=== PATIENT | female | born 1955 | race Caucasian/White ===

== ENCOUNTER → 2019-11-25 10:56 | Outpatient (BNVA) | payer MEDICARE, MEDICAID, SELFPAY | PROVIDERS: Family Provider Nurse Practitioner Family; PCP Nurse Practitioner Family; Referring Provider Nurse Practitioner Family; Visit Provider Nurse Practitioner | DX: G40.909 Epilepsy, unspecified, not intractable, without status epilepticus (principal) | CPT/HCPCS: 99204 ==

== ENCOUNTER → 2019-11-30 12:46 | Outpatient (BNVA) | payer MEDICARE, MEDICAID, SELFPAY | PROVIDERS: Family Provider Nurse Practitioner Family; PCP Nurse Practitioner Family; Referring Provider Nurse Practitioner; Visit Provider Specialist | DX: G40.309 Generalized idiopathic epilepsy and epileptic syndromes, not intractable, without status epilepticus (principal); G93.49 Other encephalopathy | CPT/HCPCS: 95816 ==

== ENCOUNTER 2020-01-18 11:25 | Outpatient (CLI) | payer MEDICARE, MEDICAID, SELFPAY ==
[2020-01-18 12:18] LABS: Blood Urea Nitrogen 13 mg/dL (8-23); Glomerular Filtration Rate 123.8 mL/min (90-130)
== END 2020-01-18 11:26 | disposition home or self-care (01) ==
LOC: RADSHAW 11:26
PROVIDERS: PCP Nurse Practitioner Family; Visit Provider Nurse Practitioner
DX: G40.909 Epilepsy, unspecified, not intractable, without status epilepticus (principal); Z79.899 Other long term (current) drug therapy
CPT/HCPCS: 82565; 84520

== ENCOUNTER 2020-05-09 10:44 | Outpatient (CLI) | payer MEDICARE, MEDICAID, SELFPAY ==
--- NOTE | 2020-05-09 11:28 | XR_ITS ---
WS: [id number] XR ankle LT min 3V* [id number] REASON FOR EXAM: PAIN BILATERAL ANKLE FINDINGS: Left ankle mortise is intact. No fracture is identified. Ossification contiguous with the distal left tibia and within the tibial fibular interval above the a nkle mortise. This is indicative of old injury. XR/XR ankle LT min 3V* [id number] IMPRESSION: Old injury. No acute abnormality.
--- NOTE | 2020-05-09 11:28 | XR_ITS ---
WS: [id number] XR elbow RT min 3V* [id number] REASON FOR EXAM: BILATERAL ELBOW PAIN/RA/FALL FINDINGS: Plate and screw fixation of multi part supracondylar right elbow fracture 06/09/2009. No interval imag ing since that time. Surgical appliances and bone appear intact without acute fracture identifiable. XR/XR elbow RT min 3V* [id number] IMPRESSION: Previous right elbow fracture with internal fixation, no acute abnormality.
--- NOTE | 2020-05-09 11:28 | XR_ITS ---
WS: [id number] Portable AP upright chest, 05/09/2020 Clinical Data: FALL/RA/BACK PAIN Comparison: Portable chest, 10/05/2017. Findings: No nodules, masses or effusions are seen. The heart is at the upper limits of normal. The a ortic arch and descending aorta show tortuosity. No pneumonia or pneumothorax is present. The nerve s timulator device and generator remain unchanged. The calcific bursitis in this right subcoracoid rod on remains unchanged. The patient has plates in the distal right humerus from a fracture repair. Ther e is a dextroscoliosis of the lower thoracic spine. XR/XR chest 2V* [id number] Impression: Atherosclerosis.
--- NOTE | 2020-05-09 11:28 | XR_ITS ---
WS: [id number] XR elbow LT min 3V* [id number] REASON FOR EXAM: BILATERAL ELBOW PAIN/RA/FALL FINDINGS: There is narrowing of the left ulnar humeral joint with mild osteophytic spurring. Left humerus, radius, and ulna are intact. No soft tissue abnormality. XR/XR elbow LT min 3V* [id number] IMPRESSION: Degenerative change without acute abnormality.
--- NOTE | 2020-05-09 11:28 | XR_ITS ---
WS: [id number] XR ankle RT min 3V* [id number] REASON FOR EXAM: PAIN CAROLEE ANKLES FINDINGS: The right ankle mortise is intact. No fracture is identified No soft tissue abnormality identified. XR/XR ankle RT min 3V* [id number] IMPRESSION: No acute abnormality.
== END 2020-05-09 10:45 | disposition home or self-care (01) ==
PROVIDERS: PCP Nurse Practitioner Family; Visit Provider Nurse Practitioner Family
DX: M25.522 Pain in left elbow (principal); M25.521 Pain in right elbow; M25.572 Pain in left ankle and joints of left foot; M25.571 Pain in right ankle and joints of right foot; M19.022 Primary osteoarthritis, left elbow; M54.9 Dorsalgia, unspecified; I70.0 Atherosclerosis of aorta; W19.XXXA Unspecified fall, initial encounter
CPT/HCPCS: 71046; 73080; 73610

== ENCOUNTER 2021-10-15 12:55 | Inpatient (IN) | payer MEDICARE, MEDICAID, SELFPAY ==
[2021-10-15] VITALS (10 sets, daily range): BP systolic 85–156; BP diastolic 52–89; PULSE 68–87; RESP 13–19; TEMP 36.6–36.8; O2SAT 93–100; BMI 16.5
--- NOTE | 2021-10-15 13:01 | ECG_ITS ---
[facility] Test Date: 2021-10-15 Pat Name: Dasia Brian Department: Room: Gender: Female Broom Worker: : 1955 Requested By: Ruby Arroyo Order Number: [id number] Cristian MD: Robles Culver M.D. Measurements Intervals [place] Rate: 67 P: 58 WI: 183 QRS: 83 QRSD: 78 T: 74 QT: 400 QTc: 425 Interpretive Statements SINUS RHYTHM No previous ECG available for comparison Electronically Signed On 10-16-2021 8:05:38 CDT by Robles Culver M.D. [id number]
--- NOTE | 2021-10-15 13:01 | CTR_ITS ---
PROCEDURE INFORMATION: Exam: CT Head Without Contrast Exam date and time: 10/15/2021 2:19 PM Age: 65 years old Clinical indication: Altered mental status/memory loss; Prior surgery; Surgery type: Brain; Additional info: AMS TECHNIQUE: Imaging protocol: Computed tomography of the head without contrast. Radiation optimization: All CT scans at this facility use at least one of these dose optimization techniques: automated exposure control; mA and/or kV adjustment per patient size (includes targeted exams where dose is matched to clinical indication); or iterative reconstruction. COMPARISON: No relevant prior studies available. RADIATION DOSE METRICS: Total DLP (mGy-cm): 886.3 FINDINGS: Brain: There is significant postoperative changes present with a large surgical defect involving the anterior portion of the left temporal lobe, the left frontal lobe, and the left anterior parietal lobe. No hemorrhage. Unremarkable white matter. No mass effect. There is enlargement of the cisterna magna . Cerebral ventricles: The left cerebral ventricles shows asymmetric ventriculomegaly. The posterior horn of the left lateral ventricle is anteriorly displaced and enlarged due to postoperative changes . Paranasal sinuses: Visualized sinuses are unremarkable. No fluid levels. Mastoid air cells: Visualized mastoid air cells are well aerated. Bones/joints: There are large craniotomy defects involving the left parietal bone and left temporal bone. No acute fracture. Soft tissues: Unremarkable. CT/CT head wo con* [id number] IMPRESSION: 1. Large craniotomy defects in the left parietal bone and temporal bone. 2. Postoperative brain defects left anterior temporal, anterior parietal, and frontal lobe. 3. Prominent cisterna magna 4. Asymmetric ventriculomegaly of the left ventricle.
--- NOTE | 2021-10-15 13:01 | XRR_ITS ---
PROCEDURE INFORMATION: Exam: XR Chest Exam date and time: 10/15/2021 1:27 PM Age: 65 years old Clinical indication: Other: AMS TECHNIQUE: Imaging protocol: XR of the chest. Views: 1 view. COMPARISON: CR XR chest 2V* [id number] 05/09/2020 11:47 AM FINDINGS: Tubes, catheters and devices: There is an electronic device in the left anterior chest is lead extends into the cervical spine Lungs: Unremarkable. No consolidation. Pleural spaces: Unremarkable. No pleural effusion. No pneumothorax. Heart/Mediastinum: Unremarkable. No cardiomegaly. Bones/joints: Unremarkable. XR/XR chest 1V portable [id number] IMPRESSION: 1. No acute findings. 2. Electronic device left chest extending to the cervical spine.
--- NOTE | 2021-10-15 13:03 | W.ED.GENADLT ---
HPI - General Adult General: Chief complaint: Altered Mental Status Stated complaint: LETHARGY Time Seen by Provider: 10/15/21 12:56 Source: EMS Mode of arrival: EMS Limitations: altered mental status History of Present Illness: 65-year-old female has a history of epilepsy along with arthritis and encephalopathy. She lives at [place] she typically is able to talk and eat on her own I states she has had increasing altered male status throughout the day patient currently is somnolent not able to get aroused or answer any questions currently EMS states that she would wake up at times with and they never could get her to answer any questions either she has had no vomiting diarrhea or fevers. PFS ED PFSH: Medical History Epilepsy Family History Other No pertinent family history Social History Smoking and tobacco status: never smoked History of recent travel: No Physical Exam Const: COMMON NORMALS: negative for patient oriented x3 and negative for alert EXAM LIMITATIONS: altered mental status GENERAL APPEARANCE: ill appearing HENMT: COMMON NORMALS: normocephalic and atraumatic HEAD & SCALP: normocephalic and atraumatic Eye: COMMON NORMALS: Equal, round and reactive pupils present and EOMs intact bilaterally PUPIL: Yes Equal, round and reactive pupils present Neck/C-Spine: COMMON NORMALS: full ROM and supple Chest: COMMONS NORMALS: normal inspection of the chest and normal palpation of entire chest wall Resp: COMMON NORMALS: normal respiratory effort, No retractions, No use of accessory muscles and clear to auscultation bilaterally AUSCULTATION: clear to auscultation bilaterally Cardio: COMMON NORMALS: regular rate, regular rhythm and No murmurs present (Cardio) RATE: regular rate RHYTHM: regular rhythm GI: COMMON NORMALS: Normal to inspection, nondistended, normoactive bowel sounds present, Soft to palpation, non-tender and no masses PALPATION: Yes Soft to palpation Extremity: COMMON NORMALS: normal to inspection and full ROM Neuro: COMMON NORMALS: negative for patient oriented x3 and negative for moves all extremities SENSORIUM/ORIENTATION: No alert Psych: COMMON NORMALS: negative for mental status grossly normal, negative for Normal thought process present and negative for cooperative THOUGHT PROCESS: abnormal Skin: COMMON NORMALS: no rashes or lesions noted and no wounds GENERAL SKIN EXAM: no rashes or lesions noted Course Vital Signs: Vital signs: Vital Signs Temperature 98.1 F 10/15/21 13:15 Pulse Rate 68 10/15/21 13:15 Respiratory Rate 16 10/15/21 13:15 Blood Pressure 156/84 10/15/21 13:15 Pulse Oximetry 100 10/15/21 13:15 MDM - General Adult Medical Decision Making Patient presents here with altered mental status she has extensive history of epilepsy and decreased functioning this could be from her urinary tract infection her phenytoin levels mildly elevated blood work and CT scan otherwise normal she has no signs of any seizures here spoke to hospitalist will admit at this time. Lab Data : 10/15/21 13:38 10/15/21 13:38 Radiology Impressions Chest X-Ray 10/15/21 13:01 IMPRESSION: 1. No acute findings. 2. Electronic device left chest extending to the cervical spine. Head CT 10/15/21 13:01 IMPRESSION: 1. Large craniotomy defects in the left parietal bone and temporal bone. 2. Postoperative brain defects left anterior temporal, anterior parietal, and frontal lobe. 3. Prominent cisterna magna 4. Asymmetric ventriculomegaly of the left ventricle. Laboratory Results WBC 7.0 10^3/uL (4.0-10.0) 10/15/21 13:38 RBC 4.60 10^6/uL (4.1-5.3) 10/15/21 13:38 Hgb 14.2 g/dL (11.5-15.3) 10/15/21 13:38 Hct 45.8 % (37.0-47.0) 10/15/21 13:38 MCV 99.6 fl (81-99) H 10/15/21 13:38 MCH 30.9 pg (28.0-34.0) 10/15/21 13:38 MCHC 31.0 g/dL (30.0-36.0) 10/15/21 13:38 RDW 13.1 % (12.1-15.1) 10/15/21 13:38 Plt Count 263 10^3/cmm (130-400) 10/15/21 13:38 MPV 9.7 fL (7.4-10.4) 10/15/21 13:38 Neut % (Auto) 58.9 % 10/15/21 13:38 Lymph % (Auto) 24.2 % 10/15/21 13:38 [place] % (Auto) 11.4 % 10/15/21 13:38 Eos % (Auto) 4.6 % 10/15/21 13:38 Baso % (Auto) 0.6 % 10/15/21 13:38 Neut # (Auto) 4.14 10^3/uL (1.8-7.7) 10/15/21 13:38 Lymph # (Auto) 1.7 10^3/uL (0.8-4.8) 10/15/21 13:38 [place] # (Auto) 0.8 10^3/uL (0.2-0.9) 10/15/21 13:38 Eos # (Auto) 0.3 10^3/uL (0.0-0.8) 10/15/21 13:38 Baso # (Auto) 0.0 10^3/uL (0.0-0.1) 10/15/21 13:38 Nucleated RBC % (auto) 0 % 10/15/21 13:38 Nucleated RBCs # 0.0 /100WBC 10/15/21 13:38 PT 14.30 SECONDS (12.1-14.9) 10/15/21 13:38 INR 1.08 (0.8-1.2) 10/15/21 13:38 Specimen Type Arterial 10/15/21 12:20 Sample Site Brachial, right 10/15/21 12:20 ABG pH 7.35 (7.35-7.45) 10/15/21 12:20 ABG pCO2 47.5 mmHg (35-45) H 10/15/21 12:20 ABG pO2 66.3 mmHg (80.0-100.0) L 10/15/21 12:20 ABG HCO3 26.4 mmol/L (22-26) H 10/15/21 12:20 ABG Base Excess 0.2 mmol/L (-2.0-2.0) 10/15/21 12:20 Gustavo Test Pos 10/15/21 12:20 Hematocrit 44.6 % (37-47) 10/15/21 12:20 Hgb O2 Saturation 91.4 % (95-100) L 10/15/21 12:20 Carboxyhemoglobin 0.9 %THgb (0.4-20.1) 10/15/21 12:20 Methemoglobin 0.9 % (0.4-1.5) 10/15/21 12:20 Total Hemoglobin 14.5 g/dL (12-16) 10/15/21 12:20 O2 Delivery Device Room air 10/15/21 12:20 FiO2 21.0 % 10/15/21 12:20 Precision Aircraft Structure Assembler ID Cak 10/15/21 12:20 Sodium 135 mmol/L (136-145) L 10/15/21 13:38 Potassium 5.0 mmol/L (3.5-5.1) 10/15/21 13:38 Chloride 100 mmol/L (98-107) 10/15/21 13:38 Carbon Dioxide 23 mmol/L (22-29) 10/15/21 13:38 Anion Gap 17.0 (5-19) 10/15/21 13:38 BUN 25 mg/dL (8-23) H 10/15/21 13:38 Creatinine 0.6 mg/dL (0.5-0.9) 10/15/21 13:38 GFR Calculation 100.0 mL/min (90-130) 10/15/21 13:38 Glucose 86 mg/dL (65-115) 10/15/21 13:38 Calculated Osmolality 284 mOsm/kg (285-295) L 10/15/21 13:38 Lactate 1.1 mmol/L (0.5-2.2) 10/15/21 13:38 Calcium 8.7 mg/dL (8.5-10.5) 10/15/21 13:38 Magnesium 2.4 mg/dL (1.7-2.3) H 10/15/21 13:38 Total Bilirubin 0.2 mg/dL (0.15-1.2) 10/15/21 13:38 AST 40 U/L (0-32) H 10/15/21 13:38 ALT 35 U/L (0-33) H 10/15/21 13:38 Alkaline Phosphatase 134 IU/L (35-105) H 10/15/21 13:38 Troponin T Baseline 16 ng/L (0-10) H 10/15/21 13:38 Total Protein 7.6 g/dL (6.6-8.7) 10/15/21 13:38 Albumin 3.6 g/dL (3.5-5.2) 10/15/21 13:38 Globulin 4.0 g/dL (1.3-4.6) 10/15/21 13:38 TSH 1.08 uIU/mL (0.27-4.20) 10/15/21 13:38 Urine Color Yellow (Yellow) 10/15/21 13:18 Urine Appearance Hazy (CLEAR) A 10/15/21 13:18 Urine pH 5 (5-7) 10/15/21 13:18 Ur Specific [place] 1.015 (1.005-1.030) 10/15/21 13:18 Urine Protein Neg (Negative) 10/15/21 13:18 Urine Glucose (UA) Norm (Normal) 10/15/21 13:18 Urine Ketones Negative (Negative) 10/15/21 13:18 Urine Blood Neg (Negative) 10/15/21 13:18 Urine Nitrate Negative (Negative) 10/15/21 13:18 Urine Bilirubin Neg (Negative) 10/15/21 13:18 Urine Urobilinogen Norm mg/dL (Negative) 10/15/21 13:18 Ur Leukocyte Esterase 1+ (Negative) H 10/15/21 13:18 Urine RBC None /hpf (0-2) 10/15/21 13:18 Urine WBC 25-40 /hpf (0-5) H 10/15/21 13:18 Ur Squamous Epith Cells 0-4 /hpf (0-5) H 10/15/21 13:18 Amorphous Sediment Not Reportable 10/15/21 13:18 Urine Bacteria 2+ /hpf (NONE) H 10/15/21 13:18 Phenytoin 32.2 ug/mL (10-20) H* 10/15/21 13:38 EKG Data EKG 1: I personally reviewed and interpreted this EKG as follows: EKG interpretation date: 10/15/21 EKG interpretation time: 13:25 Interpretation: nsr hr [address] or t wave abnormalities qrs 78 qtc 416 Computer generated interpretation: Chest X-Ray 10/15/21 13:01 IMPRESSION: 1. No acute findings. 2. Electronic device left chest extending to the cervical spine. Head CT 10/15/21 13:01 IMPRESSION: 1. Large craniotomy defects in the left parietal bone and temporal bone. 2. Postoperative brain defects left anterior temporal, anterior parietal, and frontal lobe. 3. Prominent cisterna magna 4. Asymmetric ventriculomegaly of the left ventricle. Discharge Plan Discharge Patient Disposition: Admitted As Inpatient Clinical Impression: Encephalopathy chronic, Altered mental status, Acute cystitis, Elevated Dilantin level Condition: Stable Coding Level of Care Code ED Design Project Manager for Chg Fwd Exam Comprehensive
[2021-10-15 13:21] LABS: ABG PCO2 47.5 mmHg (35-45); ABG PH Result 7.35 (7.35-7.45); Arterial Blood Gas Hematocrit 44.6 % (37-47); Base Excess ABG 0.2 mmol/L (-2.0-2.0); Blood Gas Allen Test Pos; Blood Gas Operator Identificat CAK; Blood Gas Sample Site Brachial, right; Blood Gas Sample Type Arterial; Carboxyhemoglobin 0.9 %THgb (0.4-20.1); HCO3 ABG 26.4 mmol/L (22-26); HGB O2 Sat 91.4 % (95-100); Methemoglobin 0.9 % (0.4-1.5); Oxygen Device ROOM AIR; PO2 ABG 66.3 mmHg (80.0-100.0); Total Hemoglobin 14.5 g/dL (12-16)
--- NOTE | 2021-10-15 13:21 | PC.NURSE ---
PT PLACED ON CONTINUOUS SPO2, NIBP, AND CM.
--- NOTE | 2021-10-15 13:22 | PC.NURSE ---
IN AND OUT CATH PERFORMED BY GORDO PEREZ.
[2021-10-15 13:36] LABS: Add Urine Culture? Yes; Add Urine Microscopic? YES; Bacteria Urine 2+ /hpf; Bilirubin Urine Neg (Negative); Blood Urine Neg (Negative); Glucose Urine UA Norm (Normal); Ketones Urine Negative (Negative); Leukocyte Esterase Urine 1+ (Negative); Nitrate Urine Negative (Negative); Protein Urine Neg (Negative); Specific Gravity, Urine 1.015 (1.005-1.030); Squamous Epithelial Cell Urine 0-4 /hpf (0-5); Urine Appearance Hazy (CLEAR); Urine Color Yellow (Yellow); Urobilinogen Urine Norm (Negative); WBC Urine 25-40 /hpf (0-5); pH Urine 5 (5-7)
[2021-10-15 13:50] LABS: Basophils % 0.6 %; Eosinophils # 0.3 10^3/uL (0.0-0.8); Eosinophils % 4.6 %; Hematocrit 45.8 % (37.0-47.0); Hemoglobin 14.2 g/dL (11.5-15.3); Lymphocytes # 1.7 10^3/uL (0.8-4.8); Lymphocytes % 24.2 %; Mean Corpuscular Hemoglobin 30.9 pg (28.0-34.0); Mean Corpuscular Volume 99.6 fl (81-99); Mean Platelet Volume 9.7 fL (7.4-10.4); Monocytes # 0.8 10^3/uL (0.2-0.9); Monocytes % 11.4 %; Neutrophils # 4.14 10^3/uL (1.8-7.7); Neutrophils % 58.9 %; Nucleated Red Blood Cells % 0 %; Platelet Count 263 10^3/cmm (130-400); Red Cell Distribution Width 13.1 % (12.1-15.1)
[2021-10-15 14:04] LABS: Troponin(5th) Baseline 16 ng/L (0-10)
[2021-10-15 14:10] LABS: Lactate (Lactic Acid level) 1.1 mmol/L (0.5-2.2)
[2021-10-15 14:12] LABS: INR 1.08 (0.8-1.2)
[2021-10-15 14:36] LABS: Albumin Level 3.6 g/dL (3.5-5.2); Alkaline Phosphatase 134 IU/L (35-105); Blood Urea Nitrogen 25 mg/dL (8-23); Calcium 8.7 mg/dL (8.5-10.5); Carbon Dioxide 23 mmol/L (22-29); Chloride 100 mmol/L (98-107); Creatinine Clr Calc Pharmacy 44.5793; Glucose 86 mg/dL (65-115); Magnesium 2.4 mg/dL (1.7-2.3); Osmolality Calculated 284 mOsm/kg (285-295); Sodium 135 mmol/L (136-145); Thyroid Stimulating Hormone 1.08 uIU/mL (0.27-4.20); Total Bilirubin 0.2 mg/dL (0.15-1.2); Total Protein 7.6 g/dL (6.6-8.7)
[2021-10-15] MEDS: cefTRIAXone 1,000 MG in sodium chloride 0.9% (plus) 50 ML 100 MG IV (14:41)
--- NOTE | 2021-10-15 14:46 | PC.NURSE ---
BLANKETS PLACED ON PT. PT BREATHING IS SONOROUS INFORMED DR. ALCAZAR OF NO CHANGE IN PT CONDITION VERBALIZED UNDERSTANDING NO FURTHER ORDERS.
[2021-10-15 14:54] LABS: Alanine Aminotransferase 35 U/L (0-33); Aspartate Amino Transferase 40 U/L (0-32)
[2021-10-15 14:56] LABS: Phenytoin Dilantin 32.2 ug/mL (10-20)
--- NOTE | 2021-10-15 15:01 | ECG_ITS ---
[facility] Test Date: 2021-10-15 Pat Name: Dasia Brian Department: Room: 266 Gender: Female Perioperative Manager: : 1955 Requested By: Ruby Arroyo Order Number: [id number] Cristian MD: Robles Culver M.D. Measurements Intervals [place] Rate: 68 P: 33 IA: 182 QRS: 57 QRSD: 80 T: 53 QT: 424 QTc: 451 Interpretive Statements SINUS RHYTHM Compared to ECG 10/15/2021 13:25:28 No significant changes Electronically Signed On 10-16-2021 8:06:13 CDT by Robles Culver M.D. [id number]
--- NOTE | 2021-10-15 16:04 | ED_ITS ---
HPI - Altered Mental Status General: Chief Complaint: Altered Mental Status Stated Complaint: LETHARGY Time Seen by Provider: 10/15/21 12:56 Source: EMS Mode of arrival: EMS Limitations: altered mental status PFS ED PFSH: Medical History Epilepsy Family History Other No pertinent family history Social History Smoking and tobacco status: never smoked History of recent travel: No Course Vital Signs: Vital signs: Vital Signs Temperature 98.1 F 10/15/21 13:15 Pulse Rate 68 10/15/21 13:15 Respiratory Rate 16 10/15/21 13:15 Blood Pressure 156/84 10/15/21 13:15 Pulse Oximetry 100 10/15/21 13:15 MDM - Altered Mental Status Lab Data : 10/15/21 13:38 10/15/21 13:38 Radiology Impressions Chest X-Ray 10/15/21 13:01 IMPRESSION: 1. No acute findings. 2. Electronic device left chest extending to the cervical spine. Head CT 10/15/21 13:01 IMPRESSION: 1. Large craniotomy defects in the left parietal bone and temporal bone. 2. Postoperative brain defects left anterior temporal, anterior parietal, and frontal lobe. 3. Prominent cisterna magna 4. Asymmetric ventriculomegaly of the left ventricle. Laboratory Results WBC 7.0 10^3/uL (4.0-10.0) 10/15/21 13:38 RBC 4.60 10^6/uL (4.1-5.3) 10/15/21 13:38 Hgb 14.2 g/dL (11.5-15.3) 10/15/21 13:38 Hct 45.8 % (37.0-47.0) 10/15/21 13:38 MCV 99.6 fl (81-99) H 10/15/21 13:38 MCH 30.9 pg (28.0-34.0) 10/15/21 13:38 MCHC 31.0 g/dL (30.0-36.0) 10/15/21 13:38 RDW 13.1 % (12.1-15.1) 10/15/21 13:38 Plt Count 263 10^3/cmm (130-400) 10/15/21 13:38 MPV 9.7 fL (7.4-10.4) 10/15/21 13:38 Neut % (Auto) 58.9 % 10/15/21 13:38 Lymph % (Auto) 24.2 % 10/15/21 13:38 [place] % (Auto) 11.4 % 10/15/21 13:38 Eos % (Auto) 4.6 % 10/15/21 13:38 Baso % (Auto) 0.6 % 10/15/21 13:38 Neut # (Auto) 4.14 10^3/uL (1.8-7.7) 10/15/21 13:38 Lymph # (Auto) 1.7 10^3/uL (0.8-4.8) 10/15/21 13:38 [place] # (Auto) 0.8 10^3/uL (0.2-0.9) 10/15/21 13:38 Eos # (Auto) 0.3 10^3/uL (0.0-0.8) 10/15/21 13:38 Baso # (Auto) 0.0 10^3/uL (0.0-0.1) 10/15/21 13:38 Nucleated RBC % (auto) 0 % 10/15/21 13:38 Nucleated RBCs # 0.0 /100WBC 10/15/21 13:38 PT 14.30 SECONDS (12.1-14.9) 10/15/21 13:38 INR 1.08 (0.8-1.2) 10/15/21 13:38 Specimen Type Arterial 10/15/21 12:20 Sample Site Brachial, right 10/15/21 12:20 ABG pH 7.35 (7.35-7.45) 10/15/21 12:20 ABG pCO2 47.5 mmHg (35-45) H 10/15/21 12:20 ABG pO2 66.3 mmHg (80.0-100.0) L 10/15/21 12:20 ABG HCO3 26.4 mmol/L (22-26) H 10/15/21 12:20 ABG Base Excess 0.2 mmol/L (-2.0-2.0) 10/15/21 12:20 Gustavo Test Pos 10/15/21 12:20 Hematocrit 44.6 % (37-47) 10/15/21 12:20 Hgb O2 Saturation 91.4 % (95-100) L 10/15/21 12:20 Carboxyhemoglobin 0.9 %THgb (0.4-20.1) 10/15/21 12:20 Methemoglobin 0.9 % (0.4-1.5) 10/15/21 12:20 Total Hemoglobin 14.5 g/dL (12-16) 10/15/21 12:20 O2 Delivery Device Room air 10/15/21 12:20 FiO2 21.0 % 10/15/21 12:20 Board Lining Machine Operator ID Cak 10/15/21 12:20 Sodium 135 mmol/L (136-145) L 10/15/21 13:38 Potassium 5.0 mmol/L (3.5-5.1) 10/15/21 13:38 Chloride 100 mmol/L (98-107) 10/15/21 13:38 Carbon Dioxide 23 mmol/L (22-29) 10/15/21 13:38 Anion Gap 17.0 (5-19) 10/15/21 13:38 BUN 25 mg/dL (8-23) H 10/15/21 13:38 Creatinine 0.6 mg/dL (0.5-0.9) 10/15/21 13:38 GFR Calculation 100.0 mL/min (90-130) 10/15/21 13:38 Glucose 86 mg/dL (65-115) 10/15/21 13:38 Calculated Osmolality 284 mOsm/kg (285-295) L 10/15/21 13:38 Lactate 1.1 mmol/L (0.5-2.2) 10/15/21 13:38 Calcium 8.7 mg/dL (8.5-10.5) 10/15/21 13:38 Magnesium 2.4 mg/dL (1.7-2.3) H 10/15/21 13:38 Total Bilirubin 0.2 mg/dL (0.15-1.2) 10/15/21 13:38 AST 40 U/L (0-32) H 10/15/21 13:38 ALT 35 U/L (0-33) H 10/15/21 13:38 Alkaline Phosphatase 134 IU/L (35-105) H 10/15/21 13:38 Troponin T Baseline 16 ng/L (0-10) H 10/15/21 13:38 Total Protein 7.6 g/dL (6.6-8.7) 10/15/21 13:38 Albumin 3.6 g/dL (3.5-5.2) 10/15/21 13:38 Globulin 4.0 g/dL (1.3-4.6) 10/15/21 13:38 TSH 1.08 uIU/mL (0.27-4.20) 10/15/21 13:38 Urine Color Yellow (Yellow) 10/15/21 13:18 Urine Appearance Hazy (CLEAR) A 10/15/21 13:18 Urine pH 5 (5-7) 10/15/21 13:18 Ur Specific [place] 1.015 (1.005-1.030) 10/15/21 13:18 Urine Protein Neg (Negative) 10/15/21 13:18 Urine Glucose (UA) Norm (Normal) 10/15/21 13:18 Urine Ketones Negative (Negative) 10/15/21 13:18 Urine Blood Neg (Negative) 10/15/21 13:18 Urine Nitrate Negative (Negative) 10/15/21 13:18 Urine Bilirubin Neg (Negative) 10/15/21 13:18 Urine Urobilinogen Norm mg/dL (Negative) 10/15/21 13:18 Ur Leukocyte Esterase 1+ (Negative) H 10/15/21 13:18 Urine RBC None /hpf (0-2) 10/15/21 13:18 Urine WBC 25-40 /hpf (0-5) H 10/15/21 13:18 Ur Squamous Epith Cells 0-4 /hpf (0-5) H 10/15/21 13:18 Amorphous Sediment Not Reportable 10/15/21 13:18 Urine Bacteria 2+ /hpf (NONE) H 10/15/21 13:18 Phenytoin 32.2 ug/mL (10-20) H* 10/15/21 13:38 Discharge Plan Discharge Patient Disposition: Admitted As Inpatient Admit Provider: Frederic Joseph Clinical Impression: Encephalopathy chronic, Altered mental status, Acute cystitis, Elevated Dilantin level Condition: Stable Coding Level of Care Code ED Compressor Station Engineer Chief for Ady Vidal
--- NOTE | 2021-10-15 16:09 | PC.NURSE ---
REPORT GIVEN TO ADRIEN PEREZ.
--- NOTE | 2021-10-15 16:13 | CTR_ITS ---
PROCEDURE INFORMATION: Exam: CT Chest Without Contrast; Diagnostic Exam date and time: 10/15/2021 4:30 PM Age: 65 years old Clinical indication: Other: UTI; Other: Aspiration? , ; Additional info: Aspiration? , UTI TECHNIQUE: Imaging protocol: Diagnostic computed tomography of the chest without contrast. Radiation optimization: All CT scans at this facility use at least one of these dose optimization techniques: automated exposure control; mA and/or kV adjustment per patient size (includes targeted exams where dose is matched to clinical indication); or iterative reconstruction. COMPARISON: CR (CHEST, ) 10/15/2021 1:27 PM RADIATION DOSE METRICS: Total DLP (mGy-cm): 497.7 FINDINGS: Lungs: Bilateral lower lobe bronchiectasis. A right lower lobe pneumatocele is seen. No consolidation. No masses. Pleural spaces: Unremarkable. No pneumothorax. No pleural effusion. Heart: Coronary artery calcifications seen. No cardiomegaly. No pericardial effusion. Lymph nodes: Unremarkable. No enlarged lymph nodes. Vasculature: Unremarkable. No aortic aneurysm. Bones/joints: There is generalized osteopenia seen. There are multiple compression fractures seen in the dorsal spine with dorsal kyphosis Soft tissues: Electronic device left anterior chest. There is a small hiatal hernia PROCEDURE INFORMATION: Exam: CT Abdomen And Pelvis Without Contrast Exam date and time: 10/15/2021 4:30 PM Age: 65 years old Clinical indication: Other: UTI; Other: Aspiration? , ; Additional info: Aspiration? , UTI TECHNIQUE: Imaging protocol: Computed tomography of the abdomen and pelvis without contrast. Radiation optimization: All CT scans at this facility use at least one of these dose optimization techniques: automated exposure control; mA and/or kV adjustment per patient size (includes targeted exams where dose is matched to clinical indication); or iterative reconstruction. COMPARISON: CR Hip 2-3v RIGHT wwo Pelv* [id number] 10/05/2017 12:09 PM RADIATION DOSE METRICS: Total DLP (mGy-cm): 497.7 FINDINGS: Liver: Hepatomegaly liver span is 17.5 cm. No mass. Gallbladder and bile ducts: Normal. No calcified stones. No ductal dilation. Pancreas: Normal. No ductal dilation. Spleen: Normal. No splenomegaly. Adrenal glands: Normal. No mass. Kidneys and ureters: Normal. No hydronephrosis. Stomach and bowel: Unremarkable. No obstruction. No mucosal thickening. Appendix: No evidence of appendicitis. Intraperitoneal space: Unremarkable. No free air. No significant fluid collection. Vasculature: Unremarkable. No abdominal aortic aneurysm. Lymph nodes: Unremarkable. No enlarged lymph nodes. Urinary bladder: Unremarkable as visualized. Reproductive: Unremarkable as visualized. Bones/joints: Generalized lumbar spine osteopenia. There are compression fractures present involving superior endplate of the L5, the L4, L2, L1, T12, and T11 vertebral bodies. No evidence of subluxations. There is mild levoscoliosis Soft tissues: Unremarkable CT/CT chest abd pel wo con IMPRESSION: 1. No acute findings. Lobe 2. Bilateral lower lobe bronchiectasis. 3. Pneumatocele right lower 4. Coronary artery calcifications. 5. Dorsal spine osteopenia, compression fractures, and kyphosis IMPRESSION: 1. Negative for acute abnormalities. 2. Lumbar spine osteopenia and multiple compression fractures. 3. Mild lumbar spine levoscoliosis
--- NOTE | 2021-10-15 16:15 | PM.HP ---
Providers/Chief Complaint Admitting Physician: Frederic Joseph MD Primary Care Provider: Marilyn Trivedi APN Chief Complaint: LETHARGY History of Present Illness Dasia Brian is a 65 year old female a past medical history of epilepsy, who is a resident of a long-term care facility, static encephalopathy, delayed development, history of partial lobectomy of frontal, temporal and parietal lobe, history of [place] neurostimulator placement, history of UTIs, who presents [facility] due to altered mental status. Currently patient is snoring, sleeping, not alert to person, oriented to place, or to time, she does open her eyes, to sternal rub, but falls back asleep, she is on room air, saturating high 90s, normotensive, afebrile, nontachycardic. Her coordinator at the [facility] is at bedside. Her mother and father at bedside. They tell me that she has [facility] a [facility], she at baseline can feed herself, she is nonambulatory, but can stand with assistance, she can carry out conversations. She has a history of seizures, for the last week she has had 3 breakthrough seizures. She has been taking her medications as prescribed, no changes to her medications. No recent history of UTIs. No recent history of medication changes. No fever, does have a cough. No abdominal pain complaints. No diarrhea. No abdominal pain complaints. No chest pain complaints, no shortness of breath complaints. Coordinator tells me that this week she has been less responsive, some days she has slept the entire day, has not been responsive. She has been more weak, required assistance for feeding. She has had increased episodes of confusion. She is DNR/DNI. She is maintaining her airway. Her [place] Coma Scale is 3, but she is maintaining her airway, afebrile, not requiring oxygen, I have confirmed with family at bedside that she is DNR/DNI, she would not want to be intubated, no aggressive interventions, no chest compressions, these were her wishes Review of Systems General: Reports: ROS unobtainable due to mental status Medications/Allergies Home Medications Medication Instructions Recorded Confirmed Last Taken Type acetaminophen 300 mg-codeine 30 mg 1 tab PO Q4H PRN 11/25/19 10/15/21 Unknown History tablet (Tylenol-Codeine #3) acetaminophen 325 mg capsule 325 mg PO Q4H PRN 11/25/19 10/15/21 Unknown History (Tylenol) alprazolam 0.25 mg tablet (Xanax) 0.25 mg PO Q4H PRN tab 11/25/19 10/15/21 Unknown History calcium carbonate 200 mg calcium 200 mg PO DAILY PRN 11/25/19 10/15/21 Unknown History (500 mg) chewable tablet (Tums) cholecalciferol (vitamin D3) 1,250 50,000 unit PO Q7D cap 11/25/19 10/15/21 Unknown History mcg (50,000 unit) capsule clorazepate dipotassium 7.5 mg 7.5 mg PO Q8H PRN tab 11/25/19 10/15/21 Unknown History tablet dextromethorphan-guaifenesin 30 10 ml PO BID PRN ml 11/25/19 10/15/21 Unknown History mg-200 mg/5 mL oral liquid diazepam 10 mg rectal kit [address] Q8H PRN 11/25/19 10/15/21 Unknown History docusate sodium 100 mg capsule 100 mg PO BEDTIME PRN 11/25/19 10/15/21 Unknown History (Colace) famotidine 40 mg tablet (Pepcid) 20 mg PO BID tab 11/25/19 10/15/21 10/15/21 History fluticasone propionate 220 1 inh INHALATION BID 11/25/19 10/15/21 10/15/21 History mcg/actuation HFA aerosol inhaler (Flovent HFA) fluticasone propionate 50 1 spray INTRANASAL DAILY PRN 11/25/19 10/15/21 Unknown History mcg/actuation nasal spray,suspension folic acid 1 mg tablet 1 mg PO DAILY 11/25/19 10/15/21 10/15/21 History lacosamide 150 mg tablet (Vimpat) 150 mg PO BID 11/25/19 10/15/21 10/15/21 History montelukast 10 mg tablet 10 mg PO DAILY 11/25/19 10/15/21 10/15/21 History (Singulair) multivitamin 1 tab PO DAILY 11/25/19 10/15/21 10/15/21 History ondansetron HCl 4 mg tablet 4 mg PO Q4H PRN 11/25/19 10/15/21 Unknown History (Zofran) pantoprazole 40 mg tablet,delayed 40 mg PO DAILY 11/25/19 10/15/21 10/15/21 History release (Protonix) phenazopyridine 95 mg tablet (Azo 95 mg PO TID PRN 11/25/19 10/15/21 Unknown History Urinary Pain Relief) phenytoin 50 mg chewable tablet 100 mg PO BID tab 11/25/19 10/15/21 10/15/21 History (Dilantin Infatabs) polyethylene glycol 3350 17 8.5 gm PO DAILY 11/25/19 10/15/21 10/15/21 History gram/dose oral powder (Miralax) prednisone 2.5 mg tablet 2.5 mg PO DAILY 11/25/19 10/15/21 10/15/21 History promethazine-codeine oral syrup 1 ea PO Q4H PRN 11/25/19 10/15/21 Unknown History simethicone 125 mg capsule (Gas-X 125 mg PO Q8H PRN cap 11/25/19 10/15/21 Unknown History Extra Strength) sucralfate 1 gram tablet (Carafate) 1 gm PO .tid and with meals tab 11/25/19 10/15/21 10/15/21 History tamsulosin 0.4 mg capsule (Flomax) 0.4 mg PO DAILY 11/25/19 10/15/21 10/15/21 History zonisamide 100 mg capsule 100 mg PO BID 11/25/19 10/15/21 10/15/21 History (Zonegran) Black [place] 1 tab PO BID 10/15/21 10/15/21 10/15/21 History Cbd Oil 0.5 ml PO DAILY 10/15/21 10/15/21 Unknown History Lactobacillus acidophilus 1 tab PO DAILY 10/15/21 10/15/21 10/15/21 History (Acidophilus) albuterol sulfate 90 mcg/actuation 2 puff INHALATION QID PRN 10/15/21 10/15/21 Unknown History aerosol inhaler ascorbic acid (vitamin C) 500 mg 2,000 mg PO DAILY 10/15/21 10/15/21 10/15/21 History tablet (Vitamin C) betamethasone dipropionate 0.05 % 1 applic TOPICAL BID PRN 10/15/21 10/15/21 Unknown History topical cream calcium citrate 250 mg 1 tab PO DAILY 10/15/21 10/15/21 10/15/21 History calcium-vitamin D3 5 mcg (200 unit) tablet clotrimazole 1 % topical cream 1 applic TOPICAL BID PRN 10/15/21 10/15/21 Unknown History cyanocobalamin (vitamin B-12) 500 500 mcg PO DAILY 10/15/21 10/15/21 10/15/21 History mcg tablet diclofenac sodium 1 % topical gel 4 g TOPICAL QID PRN 10/15/21 10/15/21 Unknown History fluoxetine 20 mg tablet 20 mg PO DAILY 10/15/21 10/15/21 10/14/21 History food supplemt, lactose-reduced 1 ea PO TID 10/15/21 10/15/21 10/15/21 History menthol 3.2 mg lozenges 3.2 mg MUCOUS MEMBRANE Q2H PRN 10/15/21 10/15/21 Unknown History peg 400-propylene glycol 0.4 %-0.3 2 drp OPHTHALMIC (EYE) QID PRN 10/15/21 10/15/21 Unknown History % eye drops (Systane Ultra) scopolamine base 1 mg over 3 days 1 patch TRANSDERMAL Q3D 10/15/21 10/15/21 10/15/21 History transdermal patch triamcinolone acetonide 0.1 % 1 applic TOPICAL BID PRN 10/15/21 10/15/21 Unknown History topical cream vitamin B complex 1 tab PO DAILY 10/15/21 10/15/21 10/15/21 History Allergies Allergy/AdvReac Type Severity Reaction Status Date / Time aspirin Allergy Unknown Verified 11/30/19 13:31 Influenza Virus Vaccines Allergy Unknown Verified 11/30/19 13:31 PFSH Acute PFSH: Medical History (Updated 10/15/21 @ 16:22 by Frederic Joseph MD) Brain injury Epilepsy Rheumatoid arthritis Seizures Urinary retention Surgical History (Updated 10/15/21 @ 16:22 by Frederic Joseph MD) History of craniotomy Family History Other No pertinent family history Social History Smoking and tobacco status: never smoked History of recent travel: No Vitals/I&O/Wt Last Vital Signs Temp 98.1 F 10/15/21 13:15 Pulse 68 10/15/21 13:15 Resp 16 10/15/21 13:15 BP 156/84 10/15/21 13:15 Pulse Ox 100 10/15/21 13:15 Weight last 48 hrs Weight 40.823 kg Physical Exam Const: EXAM LIMITATIONS: altered mental status OTHER: I put her onCurrently snoring, GCS 3, maintaining her airway, on room air HENMT: COMMON NORMALS: normocephalic HEAD & SCALP: normocephalic Eye: COMMON NORMALS: Equal, round and reactive pupils present Resp: COMMON NORMALS: normal respiratory effort, No retractions, No use of accessory muscles and clear to auscultation bilaterally AUSCULTATION: clear to auscultation bilaterally Cardio: COMMON NORMALS: regular rate, regular rhythm, S1 normal heart sound present and S2 normal heart sound present RATE: regular rate RHYTHM: regular rhythm HEART SOUNDS: S1 normal heart sound present and S2 normal heart sound present GI: OTHER: Right upper quadrant wincing with pain upon palpations, abdomen soft, nondistended, good bowel sounds Extremity: COMMON NORMALS: no pedal edema Neuro: OTHER: Does not follow neurologic testing Data : 10/15/21 13:38 10/15/21 13:38 A&P Assessment and plan (1) Altered mental status: Status: Acute (2) Elevated Dilantin level: Status: Acute (3) Generalized epilepsy: Status: Acute Plan Altered mental status -Etiology unclear -Possible UTI, continue Zosyn -Possible aspiration with recurrent seizure episodes, continue Zosyn, will do CT of the chest -Does have right upper quadrant pain upon palpation, will do CT scan abdomen -Has had breakthrough seizures, will start Keppra 1000 mg started by Poll[place] milligrams every 12 hours -Elevated Dilantin levels, over 32, decrease Dilantin to 50 twice daily, continue lacosamide -Neurochecks, aspiration precautions, seizure precautions -Monitor mentation closely -Continue IV fluids -n.p.o. -DNR/DNI -Lovenox for DVT prophylaxis Attestations Medical Necessity Statement*: Patient requires hospitalization, inpatient, greater than 2 midnights, for altered mental status Coding Level of Care Code Acute Director [employer] Fwd Diagnoses Altered mental status R41.82 Elevated Dilantin level R78.89 Generalized epilepsy G40.309
--- NOTE | 2021-10-15 16:44 | PC.NURSE ---
weight: 95.1 lbs height: 5;2
--- NOTE | 2021-10-15 16:45 | PC.NURSE ---
hr: 71 temp: 97.8 axillary o2: 98 nc 2l rr: 18 bp: 152/89
[2021-10-15] MEDS: piperacillin-tazobactam 3.375 GM in sodium chloride 0.9% (plus) 50 ML IV (17:36)
[2021-10-15] MEDS: dextrose 5%-sod chloride 0.9% 1,000 ML 100 ML IV (17:36)
[2021-10-15] MEDS: enoxaparin 40 mg/0.4 mL Syringe SUBCUT (17:36)
[2021-10-15] MEDS: scopolamine 1.5 Patch 1 PATCH TRANSDERMA (17:59)
[2021-10-15 19:05] LABS: Troponin 5 2HR 15.04 ng/L (0-10); Troponin 5 2HR Delta -0.96 ABS# (0-10)
[2021-10-15 20:20] LABS: Troponin 5 6HR 18.59 ng/L (0-10)
[2021-10-15 20:42] LABS: Troponin 5 6HR Delta 2.59 ng/L (0-12)
[2021-10-16] VITALS (13 sets, daily range): BP systolic 103–132; BP diastolic 55–78; PULSE 67–100; RESP 16–20; TEMP 36.5–36.9; O2SAT 92–98
[2021-10-16] MEDS: piperacillin-tazobactam 3.375 GM in sodium chloride 0.9% (plus) 50 ML IV ×3 (00:39→18:06)
[2021-10-16] MEDS: dextrose 5%-sod chloride 0.9% 1,000 ML 100 ML IV ×2 (03:59→14:09)
[2021-10-16 04:56] LABS: Basophils % 0.1 %; Eosinophils # 0.1 10^3/uL (0.0-0.8); Eosinophils % 0.5 %; Hematocrit 46.9 % (37.0-47.0); Hemoglobin 15.1 g/dL (11.5-15.3); Lymphocytes # 1.5 10^3/uL (0.8-4.8); Lymphocytes % 9.9 %; Mean Corpuscular HGB Conc 32.2 g/dL (30.0-36.0); Mean Corpuscular Hemoglobin 31.1 pg (28.0-34.0); Mean Corpuscular Volume 96.5 fl (81-99); Mean Platelet Volume 9.4 fL (7.4-10.4); Monocytes # 0.4 10^3/uL (0.2-0.9); Monocytes % 2.7 %; Neutrophils # 13.26 10^3/uL (1.8-7.7); Neutrophils % 86.3 %; Nucleated Red Blood Cells % 0 %; Platelet Count 333 10^3/cmm (130-400); Red Blood Count 4.86 10^6/uL (4.1-5.3); Red Cell Distribution Width 12.9 % (12.1-15.1); White Blood Count 15.4 10^3/uL (4.0-10.0)
[2021-10-16 05:11] LABS: Alanine Aminotransferase 23 U/L (0-33); Albumin Level 3.1 g/dL (3.5-5.2); Alkaline Phosphatase 100 IU/L (35-105); Anion Gap 17.6 (5-19); Aspartate Amino Transferase 19 U/L (0-32); Blood Urea Nitrogen 23 mg/dL (8-23); Calcium 7.4 mg/dL (8.5-10.5); Carbon Dioxide 20 mmol/L (22-29); Chloride 106 mmol/L (98-107); Chol HDL Ratio 2.87 mg/dL (0.0-4.40); Cholesterol 149 mg/dL (0-200); Globulin 2.8 g/dL (1.3-4.6); Glomerular Filtration Rate 62.6 mL/min (90-130); Glucose 117 mg/dL (65-115); HDL Cholesterol 52 mg/dL (60-100); LDL Cholesterol Calculated 76 mg/dL (50-129); LDL HDL Ratio 1.46 RATIO (0.00-3.22); Magnesium 1.8 mg/dL (1.7-2.3); Osmolality Calculated 293 mOsm/kg (285-295); Potassium 4.6 mmol/L (3.5-5.1); Sodium 139 mmol/L (136-145); Total Bilirubin 0.3 mg/dL (0.15-1.2); Total Protein 5.9 g/dL (6.6-8.7); Triglycerides 103 mg/dL (0-150)
[2021-10-16] MEDS: lanolin oint 7 gm 1 APPLIC TOPICAL (13:03)
--- NOTE | 2021-10-16 15:55 | PM.PN ---
Subjective Subjective: She has been lethargic today, but with nailbed pressure, wakes up. Slightly groggy. Has some respiratory secretions which she clears when instructed to cough. Knows where she is. Not the year. He is not short of breath. Denies having appetite. Falls back asleep. Vitals/I&O/Wt Last Vital Signs Temp 97.7 F 10/16/21 15:27 Pulse 71 10/16/21 15:27 Resp 18 10/16/21 15:27 BP 119/66 10/16/21 15:27 Pulse Ox 93 10/16/21 15:27 10/16/21 10/16/21 10/16/21 06:59 14:59 22:59 Intake Total 1160 / 1370 1050 / 1050 Balance 1160 / 1370 1050 / 1050 Weight last 48 hrs Weight 40.823 kg Physical Exam Const: GENERAL APPEARANCE: cooperative and lethargic (Wakes up to nailbed pressure, then cooperative) ORIENTATION/CONSCIOUSNESS: Yes lethargic (Wakes up to nailbed pressure, then cooperative) HENMT: COMMON NORMALS: normocephalic, EAC's normal, Normal external nose present and moist oral mucous membranes HEAD & SCALP: normocephalic NOSE: Normal external nose present EXTERNAL AUDITORY CANAL: EAC's normal Neck/C-Spine: COMMON NORMALS: no meningeal signs Chest: CHEST: Yes Symmetrical chest wall rise Resp: AUSCULTATION: rhonchi Cardio: COMMON NORMALS: regular rate, regular rhythm and No murmurs present (Cardio) RATE: regular rate RHYTHM: regular rhythm GI: COMMON NORMALS: Normal to inspection, nondistended, normoactive bowel sounds present, Soft to palpation and non-tender PALPATION: Yes Soft to palpation Extremity: COMMON NORMALS: no pedal edema Neuro: COMMON NORMALS: moves all extremities SENSORIUM/ORIENTATION: Yes lethargic (Wakes up to nailbed pressure, then cooperative) MENINGEAL SIGNS: Yes no meningeal signs Psych: COMMON NORMALS: mental status grossly normal Skin: COMMON NORMALS: no wounds RASHES: no rashes Urinary Catheter Management: 2-way Urethral: Cath Placed During This Visit: yes Urinary Catheter Date of Insertion: 10/16/21 Urinary Catheter Time of Insertion: 15:46 Data : 10/16/21 04:42 10/16/21 04:42 Micro: Microbiology 10/15/21 13:18 Urine Culture - Preliminary Urine,Clean Catch Gram Negative Rods 10/15/21 17:33 Blood Culture - Preliminary Blood SPECIMEN COLLECTED 10/15/21 17:30 Blood Culture - Preliminary Blood SPECIMEN COLLECTED A&P Assessment and plan (1) Altered mental status: Metabolic encephalopathy with aspiration pneumonia, urinary tract infection, possible toxic encephalopathy with medication, elevated phenytoin level, possibly other medication. Lethargic, but wakes up with a blood pressure. Failure to place, not year. Follows commands. Denies any needs or discomfort. Rhonchi bilaterally on exam. Coughs when instructed. We will get speech therapy eval. Continue Zosyn for possible aspiration pneumonia. Noted urinary tract infection, GNR in urine. Follow-up ID and sensitivity. Continue Zosyn. Noted possible urinary retention, 300 mL on bladder scan, [place] catheter placed. Insulin level high, dose was adjusted. Could not reach mother by phone for update. Status: Acute (2) Elevated Dilantin level: Continue adjusted dose. Status: Acute (3) Generalized epilepsy: Status: Acute Attestations Medical Necessity Statement*: Admission for assessment and management of acute encephalopathy. Coding Level of Care Code Acute Accounting Intern for [facility] Fwd Diagnoses Altered mental status R41.82 Elevated Dilantin level R78.89 Generalized epilepsy G40.309
[2021-10-16] MEDS: enoxaparin 40 mg/0.4 mL Syringe SUBCUT (16:54)
[2021-10-17] MEDS: dextrose 5%-sod chloride 0.9% 1,000 ML 100 ML IV ×2 (00:16→10:44)
[2021-10-17] MEDS: piperacillin-tazobactam 3.375 GM in sodium chloride 0.9% (plus) 50 ML IV ×2 (00:32→11:30)
[2021-10-17 03:14] VITALS: BP 107/56; PULSE 64; RESP 16; TEMP 36.6; O2SAT 97
[2021-10-17 04:59] LABS: Basophils % 0.2 %; Eosinophils # 0.2 10^3/uL (0.0-0.8); Eosinophils % 4.4 %; Hematocrit 36.9 % (37.0-47.0); Hemoglobin 11.4 g/dL (11.5-15.3); Lymphocytes # 2.1 10^3/uL (0.8-4.8); Mean Corpuscular HGB Conc 30.9 g/dL (30.0-36.0); Mean Corpuscular Hemoglobin 31.3 pg (28.0-34.0); Mean Corpuscular Volume 101.4 fl (81-99); Mean Platelet Volume 9.5 fL (7.4-10.4); Monocytes # 0.3 10^3/uL (0.2-0.9); Monocytes % 4.7 %; Neutrophils # 2.72 10^3/uL (1.8-7.7); Neutrophils % 51.5 %; Nucleated Red Blood Cells % 0 %; Platelet Count 216 10^3/cmm (130-400); Red Blood Count 3.64 10^6/uL (4.1-5.3); White Blood Count 5.3 10^3/uL (4.0-10.0)
[2021-10-17 05:20] LABS: Alanine Aminotransferase 18 U/L (0-33); Albumin Level 2.3 g/dL (3.5-5.2); Alkaline Phosphatase 73 IU/L (35-105); Aspartate Amino Transferase 19 U/L (0-32); Blood Urea Nitrogen 12 mg/dL (8-23); Calcium 7.4 mg/dL (8.5-10.5); Carbon Dioxide 22 mmol/L (22-29); Chloride 113 mmol/L (98-107); Creatinine Clr Calc Pharmacy 44.5793; Globulin 2.5 g/dL (1.3-4.6); Glomerular Filtration Rate 123.4 mL/min (90-130); Glucose 113 mg/dL (65-115); Magnesium 1.9 mg/dL (1.7-2.3); Osmolality Calculated 295 mOsm/kg (285-295); Phosphorus 2.7 mg/dL (2.5-4.5); Sodium 142 mmol/L (136-145); Total Bilirubin 0.2 mg/dL (0.15-1.2); Total Protein 4.8 g/dL (6.6-8.7)
[2021-10-17 05:25] VITALS: PULSE 64
[2021-10-17 05:46] LABS: Anion Gap 10.5 (5-19); Potassium 3.5 mmol/L (3.5-5.1)
[2021-10-17 08:00] VITALS: BP 117/63; PULSE 66; RESP 13; TEMP 36.6; O2SAT 94
[2021-10-17] MEDS: polyethylene glycol 3350 Pkt 17 gm PO (11:26)
--- NOTE | 2021-10-17 13:10 | PM.DCS ---
Discharge Providers Date of Admission: 10/15/21 15:10 Date of Discharge: October 17, 2021 Attending Provider at Admission: Frederic Joseph MD Attending Provider at Discharge: Gildardo El Primary Care Provider: Marilyn Trivedi APN Diagnoses at Discharge Discharge Diagnosis (1) Altered mental status: Status: Acute (2) Elevated Dilantin level: Status: Acute (3) Generalized epilepsy: Status: Acute Reason for Visit Reason for Visit: LETHARGY Hospital Course Hospital Course Pleasant 65-year-old lady was admitted for cyst management to take as well today, suspected acute metabolic encephalopathy, with noted urinary tract infection, possibly also toxic encephalopathy secondary to medication, with noted supratherapeutic phenytoin level. With altered mental status on presentation, started on treatment for urinary tract infection with Zosyn. Phenytoin level was decreased to 50 mg twice daily. Lethargy, decreased responsiveness have resolved. She is awake, alert, feels back to her usual self. Visited by her parents today. Feels ready to return back home. Continue mechanical soft diet as per speech therapy recommendations. Watch for signs of aspiration. Complete antibiotic course for urinary tract infection with pansensitive E. coli. Please recheck phenytoin level in 1 week. Adjustment on dosing accordingly. Follow-up with neurology for reassessment. Physical Exam Const: COMMON NORMALS: alert GENERAL APPEARANCE: cooperative ORIENTATION/CONSCIOUSNESS: Yes awake HENMT: COMMON NORMALS: normocephalic, EAC's normal, Normal external nose present and moist oral mucous membranes HEAD & SCALP: normocephalic NOSE: Normal external nose present EXTERNAL AUDITORY CANAL: EAC's normal Neck/C-Spine: COMMON NORMALS: no meningeal signs Chest: CHEST: Yes Symmetrical chest wall rise Resp: COMMON NORMALS: clear to auscultation bilaterally AUSCULTATION: clear to auscultation bilaterally Cardio: COMMON NORMALS: regular rate, regular rhythm and No murmurs present (Cardio) RATE: regular rate RHYTHM: regular rhythm GI: COMMON NORMALS: Normal to inspection, nondistended, normoactive bowel sounds present, Soft to palpation and non-tender PALPATION: Yes Soft to palpation Extremity: COMMON NORMALS: no pedal edema Neuro: COMMON NORMALS: moves all extremities SENSORIUM/ORIENTATION: Yes alert MENINGEAL SIGNS: Yes no meningeal signs Psych: COMMON NORMALS: mental status grossly normal Skin: COMMON NORMALS: no wounds RASHES: no rashes Urinary Catheter Management: 2-way Urethral: Cath Placed During This Visit: yes Reason for Continuing Indwelling Catheter: Acute Urinary Retention or Obstruction Urinary Catheter Date of Insertion: 10/16/21 Urinary Catheter Time of Insertion: 15:46 Discharge Data Studies Completed and Pending Completed Studies During Hospitalization Category Date Time Status CT chest abd pel wo con Stat Cat Scan 10/15/21 16:[address] head wo con* [id number] Urgent Cat Scan 10/15/21 13:01 Completed XR chest 1V portable [id number] Urgent Exams 10/15/21 13:01 Completed Pending at discharge Category Date Time Status Blood Culture Routine Lab 10/15/21 17:33 Results Complete Blood Count w/Auto AM LABS Lab 10/18/21 04:00 Ordered Comprehensive Metabolic Panel AM LABS Lab 10/18/21 04:00 Ordered Magnesium AM LABS Lab 10/18/21 04:00 Ordered Phosphorus AM LABS Lab 10/18/21 04:00 Ordered Radiology Impressions Chest X-Ray 10/15/21 13:01 IMPRESSION: 1. No acute findings. 2. Electronic device left chest extending to the cervical spine. Head CT 10/15/21 13:01 IMPRESSION: 1. Large craniotomy defects in the left parietal bone and temporal bone. 2. Postoperative brain defects left anterior temporal, anterior parietal, and frontal lobe. 3. Prominent cisterna magna 4. Asymmetric ventriculomegaly of the left ventricle. Chest/Abdomen/Pelvis CT 10/15/21 16:13 IMPRESSION: 1. No acute findings. Lobe 2. Bilateral lower lobe bronchiectasis. 3. Pneumatocele right lower 4. Coronary artery calcifications. 5. Dorsal spine osteopenia, compression fractures, and kyphosis IMPRESSION: 1. Negative for acute abnormalities. 2. Lumbar spine osteopenia and multiple compression fractures. 3. Mild lumbar spine levoscoliosis Laboratory Results WBC 5.3 10^3/uL (4.0-10.0) 10/17/21 04:25 RBC 3.64 10^6/uL (4.1-5.3) L 10/17/21 04:25 Hgb 11.4 g/dL (11.5-15.3) L 10/17/21 04:25 Hct 36.9 % (37.0-47.0) L 10/17/21 04:25 MCV 101.4 fl (81-99) H D 10/17/21 04:25 MCH 31.3 pg (28.0-34.0) 10/17/21 04:25 MCHC 30.9 g/dL (30.0-36.0) 10/17/21 04:25 RDW 13.0 % (12.1-15.1) 10/17/21 04:25 Plt Count 216 10^3/cmm (130-400) D 10/17/21 04:25 MPV 9.5 fL (7.4-10.4) 10/17/21 04:25 Neut % (Auto) 51.5 % 10/17/21 04:25 Lymph % (Auto) 39.0 % 10/17/21 04:25 Irion % (Auto) 4.7 % 10/17/21 04:25 Eos % (Auto) 4.4 % 10/17/21 04:25 Baso % (Auto) 0.2 % 10/17/21 04:25 Neut # (Auto) 2.72 10^3/uL (1.8-7.7) 10/17/21 04:25 Lymph # (Auto) 2.1 10^3/uL (0.8-4.8) 10/17/21 04:25 Irion # (Auto) 0.3 10^3/uL (0.2-0.9) 10/17/21 04:25 Eos # (Auto) 0.2 10^3/uL (0.0-0.8) 10/17/21 04:25 Baso # (Auto) 0.0 10^3/uL (0.0-0.1) 10/17/21 04:25 Nucleated RBC % (auto) 0 % 10/17/21 04:25 Nucleated RBCs # 0.0 /100WBC 10/17/21 04:25 PT 14.30 SECONDS (12.1-14.9) 10/15/21 13:38 INR 1.08 (0.8-1.2) 10/15/21 13:38 Specimen Type Arterial 10/15/21 12:20 Sample Site Brachial, right 10/15/21 12:20 ABG pH 7.35 (7.35-7.45) 10/15/21 12:20 ABG pCO2 47.5 mmHg (35-45) H 10/15/21 12:20 ABG pO2 66.3 mmHg (80.0-100.0) L 10/15/21 12:20 ABG HCO3 26.4 mmol/L (22-26) H 10/15/21 12:20 ABG Base Excess 0.2 mmol/L (-2.0-2.0) 10/15/21 12:20 Gustavo Test Pos 10/15/21 12:20 Hematocrit 44.6 % (37-47) 10/15/21 12:20 Hgb O2 Saturation 91.4 % (95-100) L 10/15/21 12:20 Carboxyhemoglobin 0.9 %THgb (0.4-20.1) 10/15/21 12:20 Methemoglobin 0.9 % (0.4-1.5) 10/15/21 12:20 Total Hemoglobin 14.5 g/dL (12-16) 10/15/21 12:20 O2 Delivery Device Room air 10/15/21 12:20 FiO2 21.0 % 10/15/21 12:20 Certified Recreational Therapist ID Cak 10/15/21 12:20 Sodium 142 mmol/L (136-145) 10/17/21 04:25 Potassium 3.5 mmol/L (3.5-5.1) 10/17/21 04:25 Chloride 113 mmol/L (98-107) H 10/17/21 04:25 Carbon Dioxide 22 mmol/L (22-29) 10/17/21 04:25 Anion Gap 10.5 (5-19) 10/17/21 04:25 BUN 12 mg/dL (8-23) 10/17/21 04:25 Creatinine 0.5 mg/dL (0.5-0.9) 10/17/21 04:25 GFR Calculation 123.4 mL/min (90-130) 10/17/21 04:25 Glucose 113 mg/dL (65-115) 10/17/21 04:25 Calculated Osmolality 295 mOsm/kg (285-295) 10/17/21 04:25 Lactate 1.1 mmol/L (0.5-2.2) 10/15/21 13:38 Calcium 7.4 mg/dL (8.5-10.5) L 10/17/21 04:25 Phosphorus 2.7 mg/dL (2.5-4.5) 10/17/21 04:25 Magnesium 1.9 mg/dL (1.7-2.3) 10/17/21 04:25 Total Bilirubin 0.2 mg/dL (0.15-1.2) 10/17/21 04:25 AST 19 U/L (0-32) 10/17/21 04:25 ALT 18 U/L (0-33) 10/17/21 04:25 Alkaline Phosphatase 73 IU/L (35-105) 10/17/21 04:25 Troponin T Baseline 16 ng/L (0-10) H 10/15/21 13:38 Troponin T 120 Minute 15.04 ng/L (0-10) H 10/15/21 17:30 Delta Troponin T -0.96 ABS# (0-10) L 10/15/21 17:30 Troponin T Hi Sens 6Hr 18.59 ng/L (0-10) H 10/15/21 19:40 Troponin T Hi Sens 6Hr Delta 2.59 ng/L (0-12) 10/15/21 19:40 Total Protein 4.8 g/dL (6.6-8.7) L 10/17/21 04:25 Albumin 2.3 g/dL (3.5-5.2) L 10/17/21 04:25 Globulin 2.5 g/dL (1.3-4.6) 10/17/21 04:25 Triglycerides 103 mg/dL (0-150) 10/16/21 04:42 Cholesterol 149 mg/dL (0-200) 10/16/21 04:42 LDL Cholesterol, Calc 76 mg/dL (50-129) 10/16/21 04:42 HDL Cholesterol 52 mg/dL (60-100) L 10/16/21 04:42 LDL/HDL Ratio 1.46 RATIO (0.00-3.22) 10/16/21 04:42 Cholesterol/HDL Ratio 2.87 mg/dL (0.0-4.40) 10/16/21 04:42 TSH 1.08 uIU/mL (0.27-4.20) 10/15/21 13:38 Urine Color Yellow (Yellow) 10/15/21 13:18 Urine Appearance Hazy (CLEAR) A 10/15/21 13:18 Urine pH 5 (5-7) 10/15/21 13:18 Ur Specific Flora 1.015 (1.005-1.030) 10/15/21 13:18 Urine Protein Neg (Negative) 10/15/21 13:18 Urine Glucose (UA) Norm (Normal) 10/15/21 13:18 Urine Ketones Negative (Negative) 10/15/21 13:18 Urine Blood Neg (Negative) 10/15/21 13:18 Urine Nitrate Negative (Negative) 10/15/21 13:18 Urine Bilirubin Neg (Negative) 10/15/21 13:18 Urine Urobilinogen Norm mg/dL (Negative) 10/15/21 13:18 Ur Leukocyte Esterase 1+ (Negative) H 10/15/21 13:18 Urine RBC None /hpf (0-2) 10/15/21 13:18 Urine WBC 25-40 /hpf (0-5) H 10/15/21 13:18 Ur Squamous Epith Cells 0-4 /hpf (0-5) H 10/15/21 13:18 Amorphous Sediment Not Reportable 10/15/21 13:18 Urine Bacteria 2+ /hpf (NONE) H 10/15/21 13:18 Phenytoin 32.2 ug/mL (10-20) H* 10/15/21 13:38 Vitals Last Vital Signs Temp 97.9 F 10/17/21 08:00 Pulse 66 10/17/21 08:00 Resp 13 10/17/21 08:00 BP 117/63 10/17/21 08:00 Pulse Ox 94 10/17/21 08:00 Discharge Plan Discharge Patient Disposition: Xfer Other Condition: Stable Prescriptions: New ciprofloxacin HCl [Cipro] 500 mg tablet 500 mg PO BID Qty: 10 0RF Continued folic acid 1 mg tablet 1 mg PO DAILY 0RF montelukast [Singulair] 10 mg tablet 10 mg PO DAILY 0RF multivitamin Tablet 1 tab PO DAILY 0RF polyethylene glycol 3350 [Miralax] 17 gram/dose powder 8.5 gm PO DAILY 0RF fluticasone propionate 50 mcg/actuation spray,suspension 1 spray INTRANASAL DAILY PRN (Reason: Nasal Congestion) 0RF Rx Instructions: administer into each nostril pantoprazole [Protonix] 40 mg tablet,delayed release (DR/EC) 40 mg PO DAILY 0RF prednisone 2.5 mg tablet 2.5 mg PO DAILY 0RF tamsulosin [Flomax] 0.4 mg capsule 0.4 mg PO DAILY 0RF zonisamide [Zonegran] 100 mg capsule 100 mg PO BID 0RF Flovent HFA 220 mcg/actuation HFA aerosol inhaler 1 inh INHALATION BID 0RF Vimpat 150 mg tablet 150 mg PO BID 0RF sucralfate [Carafate] 1 gram tablet 1 gm PO .tid and with meals 0RF cholecalciferol (vitamin D3) 1,250 mcg (50,000 unit) capsule 50,000 unit PO Q7D 0RF famotidine [Pepcid] 40 mg tablet 20 mg PO BID 0RF promethazine-codeine Syrup 1 ea PO Q4H PRN (Reason: Cough) 0RF Rx Instructions: 1 tsp dextromethorphan-guaifenesin 30-200 mg/5 mL liquid 10 ml PO BID PRN (Reason: Cough) 0RF phenazopyridine [Azo Urinary Pain Relief] 95 mg tablet 95 mg PO TID PRN (Reason: Bladder Spasms) 0RF alprazolam [Xanax] 0.25 mg tablet 0.25 mg PO Q4H PRN (Reason: Anxiety) 0RF acetaminophen-codeine [Tylenol-Codeine #3] 300-30 mg tablet 1 tab PO Q4H PRN (Reason: Pain) 0RF clorazepate dipotassium 7.5 mg tablet 7.5 mg PO Q8H PRN (Reason: Seizures) 0RF acetaminophen [Tylenol] 325 mg capsule 325 mg PO Q4H PRN (Reason: Pain) 0RF diazepam 10 mg kit 10 mg [place] Q8H PRN (Reason: Seizures) 0RF simethicone [Gas-X Extra Strength] 125 mg capsule 125 mg PO Q8H PRN (Reason: Gastric Reflux) 0RF docusate sodium [Colace] 100 mg capsule 100 mg PO BEDTIME PRN (Reason: Constipation) 0RF calcium carbonate [Tums] 200 mg calcium (500 mg) tablet,chewable 200 mg PO DAILY PRN (Reason: Heartburn) 0RF ondansetron HCl [Zofran] 4 mg tablet 4 mg PO Q4H PRN (Reason: Nausea) 0RF Rx Instructions: give 1st dose 30min before emetogenic chemo cyanocobalamin (vitamin B-12) 500 mcg Tablet 500 mcg PO DAILY 0RF Vitamin C 500 mg Tablet 2,000 mg PO DAILY 0RF fluoxetine 20 mg Tablet 20 mg PO DAILY 0RF vitamin B complex Tablet 1 tab PO DAILY 0RF scopolamine base 1 mg over 3 days Patch 3 Day 1 patch TRANSDERMAL Q3D 0RF Acidophilus Tablet,Chewable 1 tab PO DAILY 0RF Citracal plus D 250 mg-5 mcg (200 unit) Tablet 1 tab PO DAILY 0RF Black Steiner 1 tab PO BID 0RF triamcinolone acetonide 0.1 % Cream 1 applic TOPICAL BID PRN (Reason: Rash) 0RF betamethasone dipropionate 0.05 % Cream 1 applic TOPICAL BID PRN (Reason: Rash) 0RF albuterol sulfate 90 mcg/actuation Hfa Aerosol Inhaler 2 puff INHALATION QID PRN (Reason: Shortness Of Breath) 0RF clotrimazole 1 % Cream 1 applic TOPICAL BID PRN (Reason: Rash) 0RF Boost Liquid 1 ea PO TID 0RF Systane Ultra 0.4-0.3 % Drops 2 drp OPHTHALMIC (EYE) QID PRN (Reason: Dry Eyes) 0RF Voltaren 1 % Gel 4 g TOPICAL QID PRN (Reason: Pain) 0RF Rx Instructions: apply to single knee, ankle, foot; for foot includes sole/toes/top of foot Cough Drops 3.2 mg Lozenge 3.2 mg MUCOUS MEMBRANE Q2H PRN (Reason: Cough) 0RF Cbd Oil 0.5 ml PO DAILY 0RF Changed phenytoin [Dilantin Infatabs] 50 mg tablet,chewable 50 mg PO BID Qty: 0 0RF Discharge Orders: Discharge Order (Routine); Ordered 10/17/21 Ordered By: Gildardo El Referrals: Marilyn Trivedi APN [Primary Care Provider] - 4-7 days Discharge Diet: Soft Mechanical Discharge Activity: Resume usual activity and Increase activity as tolerated Patient Instructions: Opioid Safety Activity Restrictions/Additional Instructions: Complete antibiotic course for urinary tract infection. Please recheck phenytoin level in 1 week. Phenytoin dose was decreased due to supratherapeutic phenytoin level. Please arrange follow-up with neurology for further adjustment of antiepileptic medications. Discharge Attestations Time Spent in Discharge Care*: greater than 30 min Quality Metrics Clinical Quality Measures [ No reported AMI, CVA or VTE this stay] Coding Level of Care Code Acute Chg FW DC note Diagnoses Altered mental status R41.82 Elevated Dilantin level R78.89 Generalized epilepsy G40.309
== END 2021-10-17 15:28 | disposition home or self-care (01) | DRG 689 ==
LOC: ER 15:12 → MEDSURG 16:03
PROVIDERS: Admitting Provider Family Medicine; Emergency Provider Emergency Medicine; PCP Nurse Practitioner Family; Visit Provider Internal Medicine
DX: N39.0 Urinary tract infection, site not specified (principal); G92.8 Other toxic encephalopathy; G40.409 Other generalized epilepsy and epileptic syndromes, not intractable, without status epilepticus; M06.9 Rheumatoid arthritis, unspecified; T42.0X5A Adverse effect of hydantoin derivatives, initial encounter; Z66 Do not resuscitate; R33.9 Retention of urine, unspecified; B96.20 Unspecified Escherichia coli [E. coli] as the cause of diseases classified elsewhere; Z79.52 Long term (current) use of systemic steroids; Z79.51 Long term (current) use of inhaled steroids
CPT/HCPCS: 36415; 36600; 51702; 70450; 71045; 71250; 74176; 80053; 80061; 80185; 81001; 82805; 83605; 83735; 84100; 84443; 84484; 85025; 85610; 87040; 87077; 87086; 87186; 92523; 92610; 93005; 94664; 96365; 96372; 99285; J0696; J1650; J1953; J2543

== ENCOUNTER 2021-12-15 09:11 | Emergency (ER) | payer MEDICARE, MEDICAID, SELFPAY ==
[2021-12-15 09:12] VITALS: BP 168/93; PULSE 86; RESP 15; TEMP 36.8; O2SAT 97; BMI 17.5
--- NOTE | 2021-12-15 09:26 | XR_ITS ---
WS: [id number] XR hip RT 2-3V wo/w pel* [id number] REASON FOR EXAM: pain FINDINGS: Moderate decreased bone density. No acute fracture is identified. There is slight deformity of the femoral neck and head junction riggs monse this is identified on the previous examination of 10/05/2017. Mild to moderate changes of osteoarthritis. Superior to inferior. Ramus intact. No soft tissue abnormality. XR/XR hip RT 2-3V wo/w pel* [id number] IMPRESSION: No acute fracture identified. The right hip joint has the same appearance as on 10/05/2017.
--- NOTE | 2021-12-15 09:26 | XR_ITS ---
WS: [id number] XR shoulder RT min 2V* [id number] REASON FOR EXAM: pain FINDINGS: The right shoulder is unchanged compared to previous examination of 04/27/2014. No acute fracture. There are moderate changes of osteoarthritis in the acromioclavicular and glenohumeral joints. Large loose bodies in the subcoracoid bursa. XR/XR shoulder RT min 2V* [id number] IMPRESSION: No acute abnormality.
--- NOTE | 2021-12-15 09:36 | XR_ITS ---
WS: [id number] XR knee RT 3V* [id number] REASON FOR EXAM: pain/fall FINDINGS: Moderately decreased bone density. Old healed fracture of the proximal fibula. Nondisplaced fracture through the inferior pole of the patella. The medial tibial plateau appears to be somewhat depressed and a subtle lucent line is seen obliquely from the tibial plateau to the centr al tibial metaphysis with a vertical lucency extending distally. XR/XR knee RT 3V* [id number] IMPRESSION: Nondisplaced fracture of the patella. Suspect medial tibial plateau fracture. Noncontrast CT scan could be obtained f or confirmation or exclusion.
--- NOTE | 2021-12-15 09:37 | PC.NURSE ---
Caregiver at bedside. Patient awake and cooperative, no needs at this time.
--- NOTE | 2021-12-15 09:49 | ED_ITS ---
HPI - Fall General: Chief Complaint: Fall Stated Complaint: Fall Time Seen by Provider: 12/15/21 09:24 Source: patient Mode of arrival: ambulatory Limitations: no limitations History of Present Illness: 66-year-old female who was at assisted living they are attempting to transfer her from a wheelchair and evidently the patient unbuckled herself from her safety belt and she fell landing on her right side complaining of right hip right knee and right shoulder pain she has some bruising on the outer aspect of the proximal humerus on the right there was no loss consciousness she did not strike her head she was immediately assisted back into her chair and they kept her at the facility overnight. At the bedside may be able to move all of the affected extremities without significant pain. She is awake and alert at her baseline per the caregiver who is with her. MD complaint: fall Onset (ago): minute(s) Fall from: chair Fall witnessed: yes, by living facility staff Place [facility] occurred: [facility] Loss of consciousness: None Prolonged down time: no Symptoms prior to fall: none Context: tripped/slipped Location of injury - extremities: Right: shoulder, thigh and knee Severity: mild Associated symptoms-after fall: Denies abdominal pain, chest pain, confusion, difficulty walking, headache(s), hematuria, neck pain, numbness, short of breath, vertigo or weakness Review of Systems Const: Denies: fever(s), chills, body aches, change in appetite, fatigue or malaise Card: Denies: chest pain or palpitations Resp: Denies: dyspnea, productive cough or non-productive cough GI: Denies: abdominal pain, nausea or vomiting : Denies: flank pain, difficulty voiding, dysuria, urinary frequency or hematuria Musc: Reports: extremity pain; Denies: neck pain or back pain Skin/Breast: Denies: rash or pruritus Neuro: Denies: headache(s), difficulty walking, vertigo or confusion PFSH ED PFSH: Medical History Brain injury Encephalopathy chronic Epilepsy Generalized epilepsy Rheumatoid arthritis Seizures Urinary retention Surgical History History of craniotomy Family History Other No pertinent family history Social History Smoking and tobacco status: never smoked History of recent travel: No Physical Exam Const: GENERAL APPEARANCE: cooperative and comfortable ORIENTATION/CONSCIOUSNESS: Yes awake HENMT: COMMON NORMALS: normocephalic, atraumatic and hearing grossly normal bilaterally HEAD & SCALP: normocephalic and atraumatic Eye: COMMON NORMALS: Equal, round and reactive pupils present and conjunctivae normal CONJUNCTIVA: Yes conjunctivae normal PUPIL: Yes Equal, round and reactive pupils present Neck/C-Spine: COMMON NORMALS: full ROM, no lymphadenopathy, supple and no JVD Resp: COMMON NORMALS: normal respiratory effort, No retractions, No use of accessory muscles and clear to auscultation bilaterally AUSCULTATION: clear to auscultation bilaterally Cardio: COMMON NORMALS: no JVD, regular rate, regular rhythm and No murmurs present (Cardio) RATE: regular rate RHYTHM: regular rhythm GI: COMMON NORMALS: Soft to palpation and No hepatosplenomegaly present AUSCULTATION: Yes normoactive bowel sounds PALPATION: Yes Soft to palpation, No Tenderness to palpation present (GI), No Guarding due to palpation present (GI) and Yes No hepatosplenomegaly present Extremity: COMMON NORMALS: normal to inspection, capillary refill normal, no clubbing, cyanosis or edema, no calf tenderness and no pedal edema OTHER: Range of motion of the right arm and right leg shows only minimal discomfort at the right hip to the other joints ankle knee wrist elbow shoulder are all no significant discomfort. There is a bruise overlying the anterior lateral portion of the proximal right humerus no obvious deformity. Vascular extremities are intact. Skin: COMMON NORMALS: no rashes or lesions noted GENERAL SKIN EXAM: no rashes or lesions noted Course Vital Signs: Vital signs: Vital Signs Temperature 98.2 F 12/15/21 09:12 Pulse Rate 88 12/15/21 10:09 Respiratory Rate 16 12/15/21 10:09 Blood Pressure 162/106 12/15/21 10:09 Pulse Oximetry 94 12/15/21 10:09 MDM - Fall Medical Decision Making X-rays unremarkable discharge patient home can use previously prescribed pain medications as needed follow-up with primary care Medical Records I reviewed the patient's medical records. Lab Data I reviewed the patient's lab results. Radiology Impressions Hip/Pelvis X-Ray 12/15/21 09:26 IMPRESSION: No acute fracture identified. The right hip joint has the same appearance as on 10/05/2017. Shoulder X-Ray 12/15/21 09:26 IMPRESSION: No acute abnormality. Discharge Plan Discharge Patient Disposition: Home Clinical Impression: Fall from wheelchair Condition: Stable Prescriptions: No Action folic acid 1 mg tablet 1 mg PO DAILY 0RF montelukast [Singulair] 10 mg tablet 10 mg PO DAILY 0RF multivitamin Tablet 1 tab PO DAILY 0RF polyethylene glycol 3350 [Miralax] 17 gram/dose powder 8.5 gm PO DAILY 0RF fluticasone propionate 50 mcg/actuation spray,suspension 1 spray INTRANASAL DAILY PRN (Reason: Nasal Congestion) 0RF Rx Instructions: administer into each nostril pantoprazole [Protonix] 40 mg tablet,delayed release (DR/EC) 40 mg PO DAILY 0RF prednisone 2.5 mg tablet 2.5 mg PO DAILY 0RF tamsulosin [Flomax] 0.4 mg capsule 0.4 mg PO DAILY 0RF zonisamide [Zonegran] 100 mg capsule 100 mg PO BID 0RF Flovent HFA 220 mcg/actuation HFA aerosol inhaler 1 inh INHALATION BID 0RF Vimpat 150 mg tablet 150 mg PO BID 0RF phenytoin [Dilantin Infatabs] 50 mg tablet,chewable 100 mg PO BID 0RF sucralfate [Carafate] 1 gram tablet 1 gm PO .tid and with meals 0RF cholecalciferol (vitamin D3) 1,250 mcg (50,000 unit) capsule 50,000 unit PO Q7D 0RF famotidine [Pepcid] 40 mg tablet 20 mg PO BID 0RF promethazine-codeine Syrup 1 ea PO Q4H PRN (Reason: Cough) 0RF Rx Instructions: 1 tsp dextromethorphan-guaifenesin 30-200 mg/5 mL liquid 10 ml PO BID PRN (Reason: Cough) 0RF phenazopyridine [Azo Urinary Pain Relief] 95 mg tablet 95 mg PO TID PRN (Reason: Bladder Spasms) 0RF alprazolam [Xanax] 0.25 mg tablet 0.25 mg PO Q4H PRN (Reason: Anxiety) 0RF acetaminophen-codeine [Tylenol-Codeine #3] 300-30 mg tablet 1 tab PO Q4H PRN (Reason: Pain) 0RF clorazepate dipotassium 7.5 mg tablet 7.5 mg PO Q8H PRN (Reason: Seizures) 0RF acetaminophen [Tylenol] 325 mg capsule 325 mg PO Q4H PRN (Reason: Pain) 0RF diazepam 10 mg kit 10 mg [place] Q8H PRN (Reason: Seizures) 0RF simethicone [Gas-X Extra Strength] 125 mg capsule 125 mg PO Q8H PRN (Reason: Gastric Reflux) 0RF docusate sodium [Colace] 100 mg capsule 100 mg PO BEDTIME PRN (Reason: Constipation) 0RF calcium carbonate [Tums] 200 mg calcium (500 mg) tablet,chewable 200 mg PO DAILY PRN (Reason: Heartburn) 0RF ondansetron HCl [Zofran] 4 mg tablet 4 mg PO Q4H PRN (Reason: Nausea) 0RF Rx Instructions: give 1st dose 30min before emetogenic chemo cyanocobalamin (vitamin B-12) 500 mcg Tablet 500 mcg PO DAILY 0RF Vitamin C 500 mg Tablet 2,000 mg PO DAILY 0RF fluoxetine 20 mg Tablet 20 mg PO DAILY 0RF vitamin B complex Tablet 1 tab PO DAILY 0RF scopolamine base 1 mg over 3 days Patch 3 Day 1 patch TRANSDERMAL Q3D 0RF Acidophilus Tablet,Chewable 1 tab PO DAILY 0RF Citracal plus D 250 mg-5 mcg (200 unit) Tablet 1 tab PO DAILY 0RF Black Steiner 1 tab PO BID 0RF triamcinolone acetonide 0.1 % Cream 1 applic TOPICAL BID PRN (Reason: Rash) 0RF betamethasone dipropionate 0.05 % Cream 1 applic TOPICAL BID PRN (Reason: Rash) 0RF albuterol sulfate 90 mcg/actuation Hfa Aerosol Inhaler 2 puff INHALATION QID PRN (Reason: Shortness Of Breath) 0RF clotrimazole 1 % Cream 1 applic TOPICAL BID PRN (Reason: Rash) 0RF Boost Liquid 1 ea PO TID 0RF Systane Ultra 0.4-0.3 % Drops 2 drp OPHTHALMIC (EYE) QID PRN (Reason: Dry Eyes) 0RF Voltaren 1 % Gel 4 g TOPICAL QID PRN (Reason: Pain) 0RF Rx Instructions: apply to single knee, ankle, foot; for foot includes sole/toes/top of foot Cough Drops 3.2 mg Lozenge 3.2 mg MUCOUS MEMBRANE Q2H PRN (Reason: Cough) 0RF Cbd Oil 0.5 ml PO DAILY 0RF Discharge Orders: Discharge ED (Routine); Ordered 12/15/21 Ordered By: Gil Alexander Referrals: Marilyn Trivedi APN [Primary Care Provider] - Discharge Diet: Usual diet Discharge Activity: Increase activity as tolerated Patient Instructions: Opioid Safety Activity Restrictions/Additional Instructions: X-rays done in the emergency room did not show any acute fractures. You likely will still be sore for several days due to the fall. He may use previously prescribed medications to relieve discomfort. Follow-up with your primary care doctor as needed. Coding Level of Care Code ED Strip Mill Operator for Ady Fwd Exam Comprehensive
[2021-12-15 10:09] VITALS: BP 162/106; PULSE 88; RESP 16; O2SAT 94
[2021-12-15] MEDS: acetaminophen 500 mg Tablet 1000 MG PO (10:19)
== END 2021-12-15 10:30 | disposition home or self-care (01) ==
PROVIDERS: Emergency Provider Family Medicine; PCP Nurse Practitioner Family
DX: M79.604 Pain in right leg (principal); M25.511 Pain in right shoulder; W04.XXXA Fall while being carried or supported by other persons, initial encounter
CPT/HCPCS: 73030; 73502; 73562; 99283

== ENCOUNTER → 2022-01-03 08:38 | Outpatient (BNVA) | payer MEDICARE, MEDICAID, SELFPAY | PROVIDERS: PCP Nurse Practitioner Family; Visit Provider Orthopaedic Surgery | DX: W05.0XXA Fall from non-moving wheelchair, initial encounter (principal); S89.90XA Unspecified injury of unspecified lower leg, initial encounter | CPT/HCPCS: 99203 ==

== ENCOUNTER 2022-03-09 13:16 | Emergency (ER) | payer MEDICARE, MEDICAID, SELFPAY ==
--- NOTE | 2022-03-09 13:23 | ED_ITS ---
HPI - General Adult General: Chief complaint: Altered Mental Status Stated complaint: Altered Mental Status Time Seen by Provider: 03/09/22 13:19 History of Present Illness: Patient is a 66-year-old man with history of left craniotomy, chronic encephalopathy, epilepsy on multiple agents presenting to the emergency room for concerns of increased seizure episodes and altered mental status. Patient has had decreased energy in the last few days. Patient was also observed to have multiple seizures yesterday and 1 episode of seizure earlier today. Patient herself has a decreased urinary output over the last week. Nursing staff is concerned the patient's decline level may be high today which could cause her seizure and they think that this is likely due to her urinary tract infection. Patient has had a history of prior urinary tract infection. Nursing staff denies any fall, injury, chest pain, shortness of palpitation, nausea/vomiting, diarrhea, melena/hematochezia. Onset: 1 week ago Duration:1 week Location:[facility] Severity:modedrate Review of Systems General: Reports: ROS unobtainable due to medical condition and ROS unobtainable due to mental status : Reports: other (+decreased urination per nursing staff) Neuro: Reports: other (+breakthrough seizure activities/decreased activities) PFSH ED PFSH: Medical History Brain injury Encephalopathy chronic Epilepsy Generalized epilepsy Rheumatoid arthritis Seizures Urinary retention Surgical History History of craniotomy Family History Other No pertinent family history Social History Smoking and tobacco status: never smoked History of recent travel: No Physical Exam Const: COMMON NORMALS: no acute distress HENMT: COMMON NORMALS: atraumatic HEAD & SCALP: atraumatic MOUTH: moist mucous membranes abnormal Eye: COMMON NORMALS: conjunctivae normal CONJUNCTIVA: Yes conjunctivae normal Neck/C-Spine: COMMON NORMALS: full ROM and supple Resp: COMMON NORMALS: normal respiratory effort and clear to auscultation bilaterally AUSCULTATION: clear to auscultation bilaterally Cardio: COMMON NORMALS: regular rate RATE: regular rate GI: COMMON NORMALS: Soft to palpation and non-tender PALPATION: Yes Soft to palpation OTHER: No focal TTP. NO guarding rebound, guarding, rigidity. No CVA tenderness to percussion. Neg Castellanos/Neg McBurney's point tenderness, no suprabupic tenderness to palpation. Extremity: COMMON NORMALS: full ROM Neuro: MOTOR EXAM: No Abnormal motor strength present and Other motor observations present (no focal motor deficits) OTHER: Eyes open, unable to perform full neuro exam due to AMS Psych: OTHER: +Unable to assess due to AMS Course Vital Signs: Vital signs: Vital Signs Temperature 98.2 F 03/09/22 19:35 Pulse Rate 74 03/09/22 19:35 Respiratory Rate 15 03/09/22 19:35 Blood Pressure 153/75 03/09/22 19:35 Pulse Oximetry 96 03/09/22 19:35 Oxygen Delivery Me thod 03/09/22 13:33 MDM - General Adult Medical Decision Making Patient is a 66-year-old man with history of left craniotomy, chronic encephalopathy, epilepsy on multiple agents presenting to the emergency room for concerns of increased seizure episodes and altered mental status. On exam, patient is hemodynamically stable. Neuro exam is limited due to baseline cognitive status. Patient is afebrile. White count 7.6. Patient's UA is negative for UTI. Patient is noted to have the lead level of [address] has negative for any acute finding. XR showed possible pneumonia. Patient received vancomycin and cefepime. This present time, patient was observed for 4 to 6 hours without any seizure episode in the emergency room. Discussed this with patient's caregiver and recommend decreasing the dilantin dose. She received antibiotics and IV Keppra in the emergency room. Patient will be decreased to 50 mg of Keppra twice daily. Initial, patient will be started on 500 mg of Keppra twice daily. In addition, I will refer patient for follow-up with Dr. Adkins for management of seizure. Care team is instructed to follow-up patient's tester operator in 2 days for further assessment symptoms. Possible left lower lobe pneumonia, I have started patient on Augmentin twice daily for 7 days I have given patient follow up with our disease case manager rn to be seen by our outpatient by Dr. Adkins for breakthrough seizures and uncontrolled dilantin level. Patient aware of a call from our disease case manager rn to schedule for appointment(s) and verbalizes understanding of the importance of following up. Rx keppra 500mg BID, augmentin BID for 7 days for pneumonia Disposition: Discharge. Care team counseled regarding diagnostic impression, treatment plan. Care team given ED strict return precautions to return for co ntinuation, worsening, or development of new symptoms. Instructed to f/u w/ PCP regarding symptoms today. Patient verbalized understanding. Lab Data : 03/09/22 14:20 03/09/22 14:20 Radiology Impressions Chest X-Ray 03/09/22 13:25 Impression: 1. Patchy opacity in left lower lobe which could represent atelectasis and/or pneumonia. 2. Cardiomegaly and atherosclerosis. Head CT 03/09/22 13:25 IMPRESSION: 1. No acute intracranial hemorrhage or edema. Volume loss and prior post traumatic/ischemic changes are stable. 2. Volume loss LEFT frontal and parietal lobes probably posttraumatic with no interval change. Large LEFT craniotomy site. Laboratory Results WBC 7.6 10^3/uL (4.0-10.0) 03/09/22 14:20 RBC 4.14 10^6/uL (4.1-5.3) 03/09/22 14:20 Hgb 13.2 g/dL (11.5-15.3) 03/09/22 14:20 Hct 40.4 % (37.0-47.0) 03/09/22 14:20 MCV 97.6 fl (81-99) 03/09/22 14:20 MCH 31.9 pg (28.0-34.0) 03/09/22 14:20 MCHC 32.7 g/dL (30.0-36.0) 03/09/22 14:20 RDW 12.9 % (12.1-15.1) 03/09/22 14:20 Plt Count 274 10^3/cmm (130-400) 03/09/22 14:20 MPV 9.2 fL (7.4-10.4) 03/09/22 14:20 Neut % (Auto) 65.3 % 03/09/22 14:20 Lymph % (Auto) 20.5 % 03/09/22 14:20 Weber % (Auto) 9.1 % 03/09/22 14:20 Eos % (Auto) 4.3 % 03/09/22 14:20 Baso % (Auto) 0.5 % 03/09/22 14:20 Neut # (Auto) 4.96 10^3/uL (1.8-7.7) 03/09/22 14:20 Lymph # (Auto) 1.6 10^3/uL (0.8-4.8) 03/09/22 14:20 Weber # (Auto) 0.7 10^3/uL (0.2-0.9) 03/09/22 14:20 Eos # (Auto) 0.3 10^3/uL (0.0-0.8) 03/09/22 14:20 Baso # (Auto) 0.0 10^3/uL (0.0-0.1) 03/09/22 14:20 Nucleated RBC % (auto) 0 % 03/09/22 14:20 Nucleated RBCs # 0.0 /100WBC 03/09/22 14:20 Sodium 139 mmol/L (136-145) 03/09/22 14:20 Potassium 4.4 mmol/L (3.5-5.1) 03/09/22 14:20 Chloride 103 mmol/L (98-107) 03/09/22 14:20 Carbon Dioxide 25 mmol/L (22-29) 03/09/22 14:20 Anion Gap 15.4 (5-19) 03/09/22 14:20 BUN 21 mg/dL (8-23) 03/09/22 14:20 Creatinine 0.6 mg/dL (0.5-0.9) 03/09/22 14:20 GFR Calculation 99.7 mL/min (90-130) 03/09/22 14:20 Glucose 119 mg/dL (65-115) H 03/09/22 14:20 Calculated Osmolality 292 mOsm/kg (285-295) 03/09/22 14:20 Calcium 8.8 mg/dL (8.5-10.5) 03/09/22 14:20 Total Bilirubin 0.2 mg/dL (0.15-1.2) 03/09/22 14:20 AST 13 U/L (0-32) 03/09/22 14:20 ALT 18 U/L (0-33) 03/09/22 14:20 Alkaline Phosphatase 128 U/L (35-105) H 03/09/22 14:20 Ammonia 43 umol/L (11-51) 03/09/22 14:20 Troponin T Baseline 14 ng/L (0-10) H 03/09/22 14:20 Troponin T 120 Minute 12.88 ng/L (0-10) H 03/09/22 16:40 Delta Troponin T -1.12 ABS# (0-10) L 03/09/22 16:40 Total Protein 6.5 g/dL (6.6-8.7) L 03/09/22 14:20 Albumin 2.9 g/dL (3.5-5.2) L 03/09/22 14:20 Globulin 3.6 g/dL (1.3-4.6) 03/09/22 14:20 Lipase 26 U/L (13-60) 03/09/22 14:20 TSH 0.90 uIU/mL (0.27-4.20) 03/09/22 14:20 Free T4 0.97 ng/dL (0.82-1.77) 03/09/22 14:20 Urine Color Yellow (Yellow) 03/09/22 17:29 Urine Appearance Clear (CLEAR) 03/09/22 17:29 Urine pH 7 (5-7) 03/09/22 17:29 Ur Specific [place] 1.015 (1.005-1.030) 03/09/22 17:29 Urine Protein Neg (Negative) 03/09/22 17:29 Urine Glucose (UA) Norm (Normal) 03/09/22 17:29 Urine Ketones Negative (Negative) 03/09/22 17:29 Urine Blood Neg (Negative) 03/09/22 17:29 Urine Nitrate Negative (Negative) 03/09/22 17:29 Urine Bilirubin Neg (Negative) 03/09/22 17: Urine Urobilinogen Norm mg/dL (Negative) 03/09/22 17:29 Ur Leukocyte Esterase Negative (Negative) 03/09/22 17:29 Salicylates < 0.3 mg/dL (3-10) L 03/09/22 14:20 Acetaminophen < 5.0 ug/mL (10-30) L 03/09/22 14:20 Phenytoin 30.1 ug/mL (10-20) H* 03/09/22 14:20 Imaging Data Other Imaging: [facility]'s impression: [facility] [address] [place] [address] CT Scan Report Signed Patient: Dasia Brian Unit #: [id number] : 1955 Age/Sex: 66 / F ADM Date: 03/09/22 Loc: ER Room/Bed: Attending Dr: Ordering Provider/Ordering MD: Jazmyne Hand MD Date of Service: 03/09/22 Procedure(s): CT head wo con* [id number] Accession Number(s): [id number] Report Number: [id number] WS: [id number] CT HEAD NONCONTRAST HISTORY: ams TECHNIQUE: Contiguous axial imaging performed through the brain in 2.5 mm imaging. Bone and soft tissue windows. Sagittal and coronal reformats reviewed.? All CT scans at [facility] use at least one of these dose optimization techniques: automated exposure control; mA and/or kV adjustment per patient size (includes targeted exams where dose is matched to clinical indication); or iterative reconstruction. DLP: 1028.58 mGy.cm COMPARISON: 10/15/2021 No acute intracranial hemorrhage. Large area of encephalomalacia involving the LEFT frontal and temporal lobes with ex vacuole dilatation of the lateral ventricle. Prior posttraumatic/ischemic changes extend into the LEFT basal ganglia. Bilateral cerebellar atrophy. Ventricles:? Extra-axial dilatation of the LEFT lateral ventricle. No intraventricular hemorrhage. Fourth ventricle and third ventricle are dilated. Paranasal sinuses: As visualized are clear. Mastoid air cells: Well pneumatized. Calvarium and scalp: Large LEFT frontoparietal and temporal craniotomy site. Stable with no change. CT/CT head wo con* [id number] IMPRESSION: ? 1.? No acute intracranial hemorrhage or edema. Volume loss and prior post traumatic/ischemic changes are stable. 2.? Volume loss LEFT frontal and parietal lobes probably posttraumatic with no interval change. Large LEFT craniotomy site. ? Dictated By: Kimberley Roman DO Signed By: Kimberley Roman DO Signed Date/Time: 03/09/22 1407 DD/ 1400 [facility] [address] [place] [address] XRay Report Signed Patient: Dasia Brian Unit #: [id number] : 1955 Age/Sex: 66 / F ADM Date: 03/09/22 Loc: ER Room/Bed: Attending Dr: Ordering Provider/Ordering MD: Jazmyne Hand MD Date of Service: 03/09/22 Procedure(s): XR chest 1V portable [id number] Accession Number(s): [id number] Report Number: [id number] WS: [email or web address] Portable AP upright chest, 03/09/2022 Clinical Data: ams Comparison: Portable chest, 10/15/2021. Findings: There is left lower lobe patchy opacity which may represent atelectasis and/or pneumonia. The patient has a poor inspiratory effort. The heart is enlarged with tortuosity of the aortic arch. No pneumothorax is seen. No nodules, masses or effusions are seen. There is a external pacemaker generat or with the leads ending in the supraclavicular region unchanged. There is a monitor lead on the chest wall. XR/XR chest 1V portable [id number] Impression: ? 1. Patchy opacity in left lower lobe which could represent atelectasis and/or pneumonia. 2. Cardiomegaly and atherosclerosis. ? ? Dictated By: Merle Casanova MD Signed By: Merle Casanova MD Signed Date/Time: 03/09/22 1401 DD/ 1358 Discharge Plan Discharge Patient Disposition: Home Clinical Impression: Seizure, Pneumonia Condition: Stable Prescriptions: New Keppra 500 mg tablet 500 mg PO BID 14 Days Qty: 28 0RF Dilantin Infatabs 50 mg tablet,chewable 50 mg PO BID 14 Days Qty: 28 0RF amoxicillin-pot clavulanate 875-125 mg tablet 1 tab PO BID 7 Days Qty: 14 0RF Discontinued phenytoin [Dilantin Infatabs] 50 mg tablet,chewable 100 mg PO BID No Action folic acid 1 mg tablet 1 mg PO DAILY montelukast [Singulair] 10 mg tablet 10 mg PO DAILY multivitamin Tablet 1 tab PO DAILY polyethylene glycol 3350 [Miralax] 17 gram/dose powder 8.5 gm PO DAILY fluticasone propionate 50 mcg/actuation spray,suspension 1 spray INTRANASAL DAILY PRN (Reason: Nasal Congestion) Rx Instructions: administer into each nostril pantoprazole [Protonix] 40 mg tablet,delayed release (DR/EC) 40 mg PO DAILY prednisone 2.5 mg tablet 2.5 mg PO DAILY tamsulosin [Flomax] 0.4 mg capsule 0.4 mg PO DAILY zonisamide [Zonegran] 100 mg capsule 100 mg PO BID Flovent HFA 220 mcg/actuation HFA aerosol inhaler 1 inh INHALATION BID Vimpat 150 mg tablet 150 mg PO BID sucralfate [Carafate] 1 gram tablet 1 gm PO .tid and with meals cholecalciferol (vitamin D3) 1,250 mcg (50,000 unit) capsule 50,000 unit PO Q7D famotidine [Pepcid] 40 mg tablet 20 mg PO BID promethazine-codeine Syrup 1 ea PO Q4H PRN (Reason: Cough) Rx Instructions: 1 tsp dextromethorphan-guaifenesin 30-200 mg/5 mL liquid 10 ml PO BID PRN (Reason: Cough) phenazopyridine [Azo Urinary Pain Relief] 95 mg tablet 95 mg PO TID PRN (Reason: Bladder Spasms) alprazolam [Xanax] 0.25 mg tablet 0.25 mg PO Q4H PRN (Reason: Anxiety) acetaminophen-codeine [Tylenol-Codeine #3] 300-30 mg tablet 1 tab PO Q4H PRN (Reason: Pain) clorazepate dipotassium 7.5 mg tablet 7.5 mg PO Q8H PRN (Reason: Seizures) acetaminophen [Tylenol] 325 mg capsule 325 mg PO Q4H PRN (Reason: Pain) diazepam 10 mg kit 10 mg MA Q8H PRN (Reason: Seizures) simethicone [Gas-X Extra Strength] 125 mg capsule 125 mg PO Q8H PRN (Reason: Gastric Reflux) docusate sodium [Colace] 100 mg capsule 100 mg PO BEDTIME PRN (Reason: Constipation) calcium carbonate [Tums] 200 mg calcium (500 mg) tablet,chewable 200 mg PO DAILY PRN (Reason: Heartburn) Zofran 4 mg Tablet 4 mg PO Q6H PRN (Reason: Nausea) Macrodantin 100 mg Capsule 100 mg PO QPM Rx Instructions: must administer with a meal/food cyanocobalamin (vitamin B-12) 500 mcg Tablet 500 mcg PO DAILY ascorbic acid (vitamin C) [Vitamin C] 500 mg Tablet 2,000 mg PO DAILY fluoxetine 20 mg Tablet 20 mg PO DAILY vitamin B complex Tablet 1 tab PO DAILY scopolamine base 1 mg over 3 days Patch 3 Day 1 patch TRANSDERMAL Q3D Acidophilus Tablet,Chewable 1 tab PO DAILY calcium citrate-vitamin D3 [Citracal plus D] 250 mg-5 mcg (200 unit) Tablet 1 tab PO DAILY Black Steiner 1 tab PO BID triamcinolone acetonide 0.1 % Cream 1 applic TOPICAL BID PRN (Reason: Rash) betamethasone dipropionate 0.05 % Cream 1 applic TOPICAL BID PRN (Reason: Rash) albuterol sulfate 90 mcg/actuation Hfa Aerosol Inhaler 2 puff INHALATION QID PRN (Reason: Shortness Of Breath) clotrimazole 1 % Cream 1 applic TOPICAL BID PRN (Reason: Rash) Boost Liquid 1 ea PO TID Systane Ultra 0.4-0.3 % Drops 2 drp OPHTHALMIC (EYE) QID diclofenac sodium [Voltaren] 1 % Gel 4 g TOPICAL QID PRN (Reason: Pain) Rx Instructions: apply to single knee, ankle, foot; for foot includes sole/toes/top of foot Cough Drops 3.2 mg Lozenge 3.2 mg MUCOUS MEMBRANE Q2H PRN (Reason: Cough) Cbd Oil 0.5 ml PO DAILY Discharge Orders: Discharge ED (Routine); Ordered 03/09/22 Ordered By: Jazmyne Hand Referrals: Marilyn Trivedi APN [Primary Care Provider] - Discharge Diet: Advance as tolerated Discharge Activity: Increase activity as tolerated Patient Instructions: Epilepsy (ED) Activity Restrictions/Additional Instructions: Please come back to the emergency room for any more breakthrough episodes of seizure. Come back if any weakness in her arms, drooling, difficulty speaking, any neurological symptoms. Please do not swim bathe or drive a vehicle unattended. Our disease case manager rn will have you follow-up with Dr. Adkins in the next few days. You would be expected to have a phone call with our disease case manager rn who will put you on the schedule. You can expect a call from us in the next 2-3 days. If you don't hear from us, call us back in the emergency room at [phone]. Please decrease your phenytoin to 1 tablet twice a day. Please start patient on keppra twice a day. Please take your antibiotics as instructed. Watch out for signs of skin changes/redness, mouth redeness or swelling, nausea/vomiting, diarrhea, blood in the urine or any new or concering complaints. Coding Level of Care Code ED Truck Trailer Mechanic for Ady Vidal Exam Comprehensive
--- NOTE | 2022-03-09 13:25 | XR_ITS ---
WS: [email or web address] Portable AP upright chest, 03/09/2022 Clinical Data: ams Comparison: Portable chest, 10/15/2021. Findings: There is left lower lobe patchy opacity which may represent atelectasis and/or pneumonia. T he patient has a poor inspiratory effort. The heart is enlarged with tortuosity of the aortic arch. N o pneumothorax is seen. No nodules, masses or effusions are seen. There is a external pacemaker gener ator with the leads ending in the supraclavicular region unchanged. There is a monitor lead on the ch est wall. XR/XR chest 1V portable [id number] Impression: 1. Patchy opacity in left lower lobe which could represent atelectasis and/or p neumonia. 2. Cardiomegaly and atherosclerosis.
--- NOTE | 2022-03-09 13:25 | ECG_ITS ---
[facility] Test Date: 2022-03-09 Pat Name: Dasia Brian Department: Room: Gender: Female Health Professor: : 1955 Requested By: Jazmyne Hand Order Number: [id number] Cristian MD: Robles Culver M.D. Measurements Intervals [place] Rate: 70 P: 39 ID: 176 QRS: 3 QRSD: 89 T: 3 QT: 436 QTc: 473 Interpretive Statements SINUS RHYTHM Compared to ECG 03/09/2022 14:24:51 No significant changes Electronically Signed On 03-11-2022 22:03:13 CDT by Robles Culver M.D. [email or web address] Wirelessva [facility].Clarisonic/store/OM/[id number]
--- NOTE | 2022-03-09 13:25 | CT_ITS ---
WS: [email or web address] CT HEAD NONCONTRAST HISTORY: ams TECHNIQUE: Contiguous axial imaging performed through the brain in 2.5 mm imaging. Bone and soft tiss ue windows. Sagittal and coronal reformats reviewed. All CT scans at [facility] use at least one of these dose optimization techniques: automated exposure control; mA and/or kV adjustment per pa tient size (includes targeted exams where dose is matched to clinical indication); or iterative recon struction. DLP: 1028.58 mGy.cm COMPARISON: 10/15/2021 No acute intracranial hemorrhage. Large area of encephalomalacia involving the LEFT frontal and tempo ral lobes with ex vacuole dilatation of the lateral ventricle. Prior posttraumatic/ischemic changes e xtend into the LEFT basal ganglia. Bilateral cerebellar atrophy. Ventricles: Extra-axial dilatation of the LEFT lateral ventricle. No intraventricular hemorrhage. Fo urth ventricle and third ventricle are dilated. Paranasal sinuses: As visualized are clear. Mastoid air cells: Well pneumatized. Calvarium and scalp: Large LEFT frontoparietal and temporal craniotomy site. Stable with no change. CT/CT head wo con* [id number] IMPRESSION: 1. No acute intracranial hemorrhage or edema. Volume loss and prior post traum atic/ischemic changes are stable. 2. Volume loss LEFT frontal and parietal lobes probably posttraumatic with no interval change. Large LEFT craniotomy site.
[2022-03-09 13:33] VITALS: BP 143/84; PULSE 77; TEMP 36.7; O2SAT 94; BMI 18.7
[2022-03-09 14:30] LABS: Basophils % 0.5 %; Eosinophils # 0.3 10^3/uL (0.0-0.8); Eosinophils % 4.3 %; Hematocrit 40.4 % (37.0-47.0); Hemoglobin 13.2 g/dL (11.5-15.3); Lymphocytes # 1.6 10^3/uL (0.8-4.8); Lymphocytes % 20.5 %; Mean Corpuscular HGB Conc 32.7 g/dL (30.0-36.0); Mean Corpuscular Hemoglobin 31.9 pg (28.0-34.0); Mean Corpuscular Volume 97.6 fl (81-99); Mean Platelet Volume 9.2 fL (7.4-10.4); Monocytes # 0.7 10^3/uL (0.2-0.9); Monocytes % 9.1 %; Neutrophils # 4.96 10^3/uL (1.8-7.7); Neutrophils % 65.3 %; Nucleated Red Blood Cells % 0 %; Platelet Count 274 10^3/cmm (130-400); Red Blood Count 4.14 10^6/uL (4.1-5.3); Red Cell Distribution Width 12.9 % (12.1-15.1); White Blood Count 7.6 10^3/uL (4.0-10.0)
[2022-03-09 14:54] LABS: Ammonia 43 umol/L (11-51); Troponin(5th) Baseline 14 ng/L (0-10)
[2022-03-09 14:57] LABS: Phenytoin Dilantin 30.1 ug/mL (10-20)
[2022-03-09 15:06] LABS: Alanine Aminotransferase 18 U/L (0-33); Albumin Level 2.9 g/dL (3.5-5.2); Alkaline Phosphatase 128 U/L (35-105); Anion Gap 15.4 (5-19); Aspartate Amino Transferase 13 U/L (0-32); Blood Urea Nitrogen 21 mg/dL (8-23); Calcium 8.8 mg/dL (8.5-10.5); Carbon Dioxide 25 mmol/L (22-29); Chloride 103 mmol/L (98-107); Free T4 Free Thyroxine 0.97 ng/dL (0.82-1.77); Globulin 3.6 g/dL (1.3-4.6); Glomerular Filtration Rate 99.7 mL/min (90-130); Glucose 119 mg/dL (65-115); Lipase 26 U/L (13-60); Osmolality Calculated 292 mOsm/kg (285-295); Potassium 4.4 mmol/L (3.5-5.1); Sodium 139 mmol/L (136-145); Total Bilirubin 0.2 mg/dL (0.15-1.2); Total Protein 6.5 g/dL (6.6-8.7)
[2022-03-09 15:08] LABS: Acetaminophen < 5.0 ug/mL (10-30); Salicylate < 0.3 mg/dL (3-10)
--- NOTE | 2022-03-09 15:25 | ECG_ITS ---
[facility] Test Date: 2022-03-09 Pat Name: Dasia Brian Department: Room: Gender: Female Glue Bone Drier: : 1955 Requested By: Jazmyne Hand Order Number: [id number] Cristian MD: Robles Culver M.D. Measurements Intervals [place] Rate: 71 P: 56 CT: 185 QRS: 57 QRSD: 81 T: 54 QT: 420 QTc: 459 Interpretive Statements SINUS RHYTHM Compared to ECG 03/09/2022 16:55:24 No significant changes Electronically Signed On 03-11-2022 22:11:58 CDT by Robles Culver M.D. [email or web address] [email or web address] [facility].[employer]/store/OM/[id number]
[2022-03-09] MEDS: sodium chloride 0.9% 1,000 ML 30 ML IV (16:05)
[2022-03-09] MEDS: cefepime 1,000 MG in sodium chloride 0.9% (plus) 50 ML 100 MG IV (17:12)
[2022-03-09 17:16] LABS: Troponin 5 2HR 12.88 ng/L (0-10)
[2022-03-09 17:17] LABS: Troponin 5 2HR Delta -1.12 ABS# (0-10)
[2022-03-09 17:56] LABS: Add Urine Microscopic? NO; Charge for UA Resulting for Rev
[2022-03-09 17:59] LABS: Bilirubin Urine Neg (Negative); Blood Urine Neg (Negative); Glucose Urine UA Norm (Normal); Ketones Urine Negative (Negative); Leukocyte Esterase Urine Negative (Negative); Nitrate Urine Negative (Negative); Protein Urine Neg (Negative); Specific Gravity, Urine 1.015 (1.005-1.030); Urine Appearance Clear (CLEAR); Urine Color Yellow (Yellow); Urobilinogen Urine Norm (Negative); pH Urine 7 (5-7)
[2022-03-09] MEDS: vancomycin 1,000 MG in sodium chloride 0.9% 250 ML 250 MG IV (18:32)
--- NOTE | 2022-03-09 19:25 | ECG_ITS ---
[facility] Test Date: 2022-03-09 Pat Name: Dasia Brian Department: Room: Gender: Female Head Filter Tank Tender Helper: : 1955 Requested By: Jazmyne Hand Order Number: [id number] Cristian MD: Florida Rivera M.D. Measurements Intervals [place] Rate: 73 P: 21 AK: 170 QRS: 50 QRSD: 85 T: 60 QT: 400 QTc: 442 Interpretive Statements SINUS RHYTHM Compared to ECG 10/15/2021 17:01:17 No significant changes Electronically Signed On 03-09-2022 16:37:55 CDT by Florida Rivera M.D. [email or web address].[employer]/store/OM/[id number]
[2022-03-09] MEDS: levETIRAcetam 500 mg Tablet 2000 MG PO (19:32)
[2022-03-09 19:35] VITALS: BP 153/75; PULSE 74; RESP 15; TEMP 36.8; O2SAT 96
--- NOTE | 2022-03-12 11:15 | DCPLANNER ---
Addendum entered by Barbra Lovell 05/16/22 11:58: This appointment was cancelled Addendum entered by Barbra Lovell 04/19/22 08:21: Patient has a follow up appointment scheduled for Monday, May 02, 2022 at 10:[address] Adkins at neurology. Clinic will call patient with appointment information. Original Note: banking management consulting manager had message to schedule a follow up appointment for patient with neurology. banking management consulting manager sent patients information to the front office staff at neurology. Patients information will be printed and reviewed. Clinic will call patient with appointment information.
== END 2022-03-09 19:37 | disposition home or self-care (01) ==
PROVIDERS: Emergency Provider Emergency Medicine; PCP Nurse Practitioner Family
DX: R56.9 Unspecified convulsions (principal); J18.9 Pneumonia, unspecified organism
CPT/HCPCS: 36415; 70450; 71045; 80053; 80185; 80307; 81003; 82140; 83690; 84439; 84443; 84484; 85025; 93005; 96365; 96366; 96367; 99285; J0692; J1953; J3370; J7030; J7050

== ENCOUNTER 2022-05-02 17:24 | Emergency (ER) | payer MEDICARE, MEDICAID, SELFPAY ==
[2022-05-02 17:25] VITALS: BP 146/86; PULSE 80; RESP 20; TEMP 36.8; O2SAT 98; BMI 26.4
--- NOTE | 2022-05-02 18:08 | XRR_ITS ---
PROCEDURE INFORMATION: Exam: XR Chest Exam date and time: 05/02/2022 6:23 PM Age: 66 years old Clinical indication: Other: AMS TECHNIQUE: Imaging protocol: Radiologic exam of the chest. Views: 1 view. COMPARISON: CR XR chest 1V portable [id number] 03/09/2022 1:42 PM FINDINGS: Tubes, catheters and devices: Pacemaker. Lungs: Left lower lobe atelectasis versus minimal infiltrate. Pleural spaces: Unremarkable. No pleural effusion. No pneumothorax. Heart/Mediastinum: Cardiomegaly and mild pulmonary vascular congestion. Bones/joints: Unremarkable. XR/XR chest 1V portable [id number] IMPRESSION: 1. Cardiomegaly and mild pulmonary vascular congestion. 2. Left lower lobe atelectasis versus minimal infiltrate.
[2022-05-02 18:15] VITALS: BP 142/92
--- NOTE | 2022-05-02 18:19 | CTR_ITS ---
PROCEDURE INFORMATION: Exam: CT Head Without Contrast Exam date and time: 05/02/2022 7:04 PM Age: 66 years old Clinical indication: Condition or disease; Convulsions or seizures; Additional info: Seizure TECHNIQUE: Imaging protocol: Computed tomography of the head without contrast. Radiation optimization: All CT scans at this facility use at least one of these dose optimization techniques: automated exposure control; mA and/or kV adjustment per patient size (includes targeted exams where dose is matched to clinical indication); or iterative reconstruction. COMPARISON: CT head wo con* [id number] 03/09/2022 1:52 PM RADIATION DOSE METRICS: Total DLP (mGy-cm): 777.38 FINDINGS: Brain: There is moderate cerebral atrophy. Large pre-existing geographic area of left cerebral hemisphere encephalomalacia from prior infarct within the left MCA distribution. No acute intracranial hemorrhage identified. Generalized severe atrophy of cerebellum parenchyma. Cerebral ventricles: Left lateral ventricle ex vacuo dilation. Paranasal sinuses: Visualized sinuses are unremarkable. No fluid levels. Mastoid air cells: Visualized mastoid air cells are well aerated. Bones/joints: Left-sided craniotomy. Soft tissues: Unremarkable. CT/CT head wo con* [id number] IMPRESSION: 1. Negative for acute intracranial abnormality. 2. No changes from comparison.
--- NOTE | 2022-05-02 18:20 | ECG_ITS ---
[facility] Test Date: 2022-05-02 Pat Name: Dasia Brian Department: Room: Gender: Female Rn Pain Management: : 1955 Requested By: Ruby Arroyo Order Number: [id number] Cristian MD: Robles Culver M.D. Measurements Intervals [place] Rate: 80 P: 18 CA: 189 QRS: 29 QRSD: 77 T: 73 QT: 417 QTc: 481 Interpretive Statements SINUS RHYTHM Compared to ECG 03/09/2022 17:33:29 No significant changes Electronically Signed On 05-03-2022 10:15:36 NAPPING MACHINE OPERATOR by Robles Culver M.D. [email or web address] point mature adult care unitCrowdCan.Doavita health system ontario hospitalTerpenoid Therapeutics/store/OM/[id number]
[2022-05-02 18:25] LABS: Basophils % 0.8 %; Eosinophils # 0.2 10^3/uL (0.0-0.8); Eosinophils % 3.2 %; Hematocrit 41.1 % (37.0-47.0); Hemoglobin 13.1 g/dL (11.5-15.3); Lymphocytes # 1.6 10^3/uL (0.8-4.8); Lymphocytes % 30.6 %; Mean Corpuscular HGB Conc 31.9 g/dL (30.0-36.0); Mean Corpuscular Volume 97.4 fl (81-99); Mean Platelet Volume 9.1 fL (7.4-10.4); Monocytes # 0.6 10^3/uL (0.2-0.9); Monocytes % 10.4 %; Neutrophils # 2.89 10^3/uL (1.8-7.7); Neutrophils % 54.6 %; Nucleated Red Blood Cells % 0 %; Platelet Count 281 10^3/cmm (130-400); Red Blood Count 4.22 10^6/uL (4.1-5.3); Red Cell Distribution Width 13.5 % (12.1-15.1); White Blood Count 5.3 10^3/uL (4.0-10.0)
--- NOTE | 2022-05-02 18:28 | W.ED.GENADLT ---
HPI - General Adult General: Chief complaint: General Medical Stated complaint: lethargy Time Seen by Provider: 05/02/22 17:50 Source: EMS Mode of arrival: EMS Limitations: altered mental status History of Present Illness: 66-year-old female who is here from a care facility she has a history of cerebral palsy along with seizures she is bedbound per staff she had a seizure 2 days ago and they give her dose of Dilantin I states that today she has been having a harder time around she is actually awake and alert currently and at her baseline. They state they are concerned that her Dilantin level may be high because she has had this before. No fevers no vomiting no diarrhea Review of Systems General: Reports: ROS unobtainable due to mental status PFSH ED PFSH: Medical History Brain injury Encephalopathy chronic Epilepsy Generalized epilepsy Rheumatoid arthritis Seizures Urinary retention Surgical History History of craniotomy Family History Other No pertinent family history Social History Smoking and tobacco status: never smoked History of recent travel: No Physical Exam Const: COMMON NORMALS: alert; negative for patient oriented x3 EXAM LIMITATIONS: altered mental status ORIENTATION/CONSCIOUSNESS: not oriented to person, not oriented to place and not oriented to time HENMT: COMMON NORMALS: normocephalic and atraumatic HEAD & SCALP: normocephalic and atraumatic Eye: COMMON NORMALS: Equal, round and reactive pupils present and EOMs intact bilaterally PUPIL: Yes Equal, round and reactive pupils present Neck/C-Spine: COMMON NORMALS: full ROM and supple Chest: COMMONS NORMALS: normal inspection of the chest and normal palpation of entire chest wall Resp: COMMON NORMALS: normal respiratory effort, No retractions, No use of accessory muscles and clear to auscultation bilaterally AUSCULTATION: clear to auscultation bilaterally Cardio: COMMON NORMALS: regular rate, regular rhythm and No murmurs present (Cardio) RATE: regular rate RHYTHM: regular rhythm GI: COMMON NORMALS: Normal to inspection, nondistended, normoactive bowel sounds present, Soft to palpation, non-tender and no masses PALPATION: Yes Soft to palpation Extremity: COMMON NORMALS: normal to inspection and full ROM Neuro: COMMON NORMALS: negative for patient oriented x3 SENSORIUM/ORIENTATION: Yes alert, No oriented to person, No oriented to place and No oriented to time Psych: COMMON NORMALS: cooperative; negative for mental status grossly normal Skin: COMMON NORMALS: no rashes or lesions noted and no wounds GENERAL SKIN EXAM: no rashes or lesions noted Course Vital Signs: Vital signs: Vital Signs Temperature 98.2 F 05/02/22 17:25 Pulse Rate 80 05/02/22 17:25 Respiratory Rate 20 H 05/02/22 17:25 Blood Pressure 142/92 05/02/22 18:15 Pulse Oximetry 98 05/02/22 17:25 Oxygen Delivery Me thod 05/02/22 17:25 MDM - General Adult Medical Decision Making Patient presents here with some slight increased weakness she is well-appearing here she is at her baseline head CT blood work are normal her Dilantin level is normal she is stable for discharge she is to follow-up with PCP and return if worsening. Lab Data 05/02/22 18:14 05/02/22 18:14 Radiology Impressions Chest X-Ray 05/02/22 18:08 IMPRESSION: 1. Cardiomegaly and mild pulmonary vascular congestion. 2. Left lower lobe atelectasis versus minimal infiltrate. Head CT 05/02/22 18:19 IMPRESSION: 1. Negative for acute intracranial abnormality. 2. No changes from comparison. Laboratory Results WBC 5.3 10^3/uL (4.0-10.0) 05/02/22 18:14 RBC 4.22 10^6/uL (4.1-5.3) 05/02/22 18:14 Hgb 13.1 g/dL (11.5-15.3) 05/02/22 18:14 Hct 41.1 % (37.0-47.0) 05/02/22 18:14 MCV 97.4 fl (81-99) 05/02/22 18:14 MCH 31.0 pg (28.0-34.0) 05/02/22 18:14 MCHC 31.9 g/dL (30.0-36.0) 05/02/22 18:14 RDW 13.5 % (12.1-15.1) 05/02/22 18:14 Plt Count 281 10^3/cmm (130-400) 05/02/22 18:14 MPV 9.1 fL (7.4-10.4) 05/02/22 18:14 Neut % (Auto) 54.6 % 05/02/22 18:14 Lymph % (Auto) 30.6 % 05/02/22 18:14 [place] % (Auto) 10.4 % 05/02/22 18:14 Eos % (Auto) 3.2 % 05/02/22 18:14 Baso % (Auto) 0.8 % 05/02/22 18:14 Neut # (Auto) 2.89 10^3/uL (1.8-7.7) 05/02/22 18:14 Lymph # (Auto) 1.6 10^3/uL (0.8-4.8) 05/02/22 18:14 [place] # (Auto) 0.6 10^3/uL (0.2-0.9) 05/02/22 18:14 Eos # (Auto) 0.2 10^3/uL (0.0-0.8) 05/02/22 18:14 Baso # (Auto) 0.0 10^3/uL (0.0-0.1) 05/02/22 18:14 Nucleated RBC % (auto) 0 % 05/02/22 18:14 Nucleated RBCs # 0.0 /100WBC 05/02/22 18:14 Sodium 137 mmol/L (136-145) 05/02/22 18:14 Potassium 4.5 mmol/L (3.5-5.1) 05/02/22 18:14 Chloride 103 mmol/L (98-107) 05/02/22 18:14 Carbon Dioxide 27 mmol/L (22-29) 05/02/22 18:14 Anion Gap 11.5 (5-19) 05/02/22 18:14 BUN 21 mg/dL (8-23) 05/02/22 18:14 Creatinine 0.6 mg/dL (0.5-0.9) 05/02/22 18:14 GFR Calculation 99.7 mL/min (90-130) 05/02/22 18:14 Glucose 87 mg/dL (65-115) 05/02/22 18:14 Calculated Osmolality 286 mOsm/kg (285-295) 05/02/22 18:14 Calcium 8.4 mg/dL (8.5-10.5) L 05/02/22 18:14 Total Bilirubin 0.2 mg/dL (0.15-1.2) 05/02/22 18:14 AST 19 U/L (0-32) 05/02/22 18:14 ALT 28 U/L (0-33) 05/02/22 18:14 Alkaline Phosphatase 129 U/L (35-105) H 05/02/22 18:14 Total Protein 6.3 g/dL (6.6-8.7) L 05/02/22 18:14 Albumin 2.9 g/dL (3.5-5.2) L 05/02/22 18:14 Globulin 3.4 g/dL (1.3-4.6) 05/02/22 18:14 Urine Color Yellow (Yellow) 05/02/22 18:33 Urine Appearance Clear (CLEAR) 05/02/22 18:33 Urine pH 7 (5-7) 05/02/22 18:33 Ur Specific [place] 1.015 (1.005-1.030) 05/02/22 18:33 Urine Protein Neg (Negative) 05/02/22 18:33 Urine Glucose (UA) Norm (Normal) 05/02/22 18:33 Urine Ketones Negative (Negative) 05/02/22 18:33 Urine Blood Neg (Negative) 05/02/22 18:33 Urine Nitrate Negative (Negative) 05/02/22 18:33 Urine Bilirubin Neg (Negative) 05/02/22 18:33 Urine Urobilinogen Neg mg/dL (Negative) 05/02/22 18:33 Ur Leukocyte Esterase Negative (Negative) 05/02/22 18:33 Phenytoin 9.3 ug/mL (10-20) L 05/02/22 18:14 Discharge Plan Discharge Patient Disposition: Home Clinical Impression: Epilepsy Condition: Stable Prescriptions: No Action folic acid 1 mg tablet 1 mg PO DAILY montelukast [Singulair] 10 mg tablet 10 mg PO DAILY multivitamin Tablet 1 tab PO DAILY polyethylene glycol 3350 [Miralax] 17 gram/dose powder 8.5 gm PO DAILY fluticasone propionate 50 mcg/actuation spray,suspension 1 spray INTRANASAL DAILY PRN (Reason: Nasal Congestion) Rx Instructions: administer into each nostril pantoprazole [Protonix] 40 mg tablet,delayed release (DR/EC) 40 mg PO DAILY prednisone 2.5 mg tablet 2.5 mg PO DAILY tamsulosin [Flomax] 0.4 mg capsule 0.4 mg PO DAILY zonisamide [Zonegran] 100 mg capsule 100 mg PO BID Flovent HFA 220 mcg/actuation HFA aerosol inhaler 1 inh INHALATION BID Vimpat 150 mg tablet 150 mg PO BID sucralfate [Carafate] 1 gram tablet 1 gm PO .tid and with meals cholecalciferol (vitamin D3) 1,250 mcg (50,000 unit) capsule 50,000 unit PO Q7D famotidine [Pepcid] 40 mg tablet 20 mg PO BID promethazine-codeine Syrup 1 ea PO Q4H PRN (Reason: Cough) Rx Instructions: 1 tsp dextromethorphan-guaifenesin 30-200 mg/5 mL liquid 10 ml PO BID PRN (Reason: Cough) phenazopyridine [Azo Urinary Pain Relief] 95 mg tablet 95 mg PO TID PRN (Reason: Bladder Spasms) alprazolam [Xanax] 0.25 mg tablet 0.25 mg PO Q4H PRN (Reason: Anxiety) acetaminophen-codeine [Tylenol-Codeine #3] 300-30 mg tablet 1 tab PO Q4H PRN (Reason: Pain) clorazepate dipotassium 7.5 mg tablet 7.5 mg PO Q8H PRN (Reason: Seizures) acetaminophen [Tylenol] 325 mg capsule 325 mg PO Q4H PRN (Reason: Pain) diazepam 10 mg kit 10 mg [place] Q8H PRN (Reason: Seizures) simethicone [Gas-X Extra Strength] 125 mg capsule 125 mg PO Q8H PRN (Reason: Gastric Reflux) docusate sodium [Colace] 100 mg capsule 100 mg PO BEDTIME PRN (Reason: Constipation) calcium carbonate [Tums] 200 mg calcium (500 mg) tablet,chewable 200 mg PO DAILY PRN (Reason: Heartburn) Zofran 4 mg Tablet 4 mg PO Q6H PRN (Reason: Nausea) Macrodantin 100 mg Capsule 100 mg PO QPM Rx Instructions: must administer with a meal/food cyanocobalamin (vitamin B-12) 500 mcg Tablet 500 mcg PO DAILY ascorbic acid (vitamin C) [Vitamin C] 500 mg Tablet 2,000 mg PO DAILY fluoxetine 20 mg Tablet 20 mg PO DAILY vitamin B complex Tablet 1 tab PO DAILY scopolamine base 1 mg over 3 days Patch 3 Day 1 patch TRANSDERMAL Q3D Acidophilus Tablet,Chewable 1 tab PO DAILY calcium citrate-vitamin D3 [Citracal plus D] 250 mg-5 mcg (200 unit) Tablet 1 tab PO DAILY Black Steiner 1 tab PO BID triamcinolone acetonide 0.1 % Cream 1 applic TOPICAL BID PRN (Reason: Rash) betamethasone dipropionate 0.05 % Cream 1 applic TOPICAL BID PRN (Reason: Rash) albuterol sulfate 90 mcg/actuation Hfa Aerosol Inhaler 2 puff INHALATION QID PRN (Reason: Shortness Of Breath) clotrimazole 1 % Cream 1 applic TOPICAL BID PRN (Reason: Rash) Boost Liquid 1 ea PO TID Systane Ultra 0.4-0.3 % Drops 2 drp OPHTHALMIC (EYE) QID diclofenac sodium [Voltaren] 1 % Gel 4 g TOPICAL QID PRN (Reason: Pain) Rx Instructions: apply to single knee, ankle, foot; for foot includes sole/toes/top of foot Cough Drops 3.2 mg Lozenge 3.2 mg MUCOUS MEMBRANE Q2H PRN (Reason: Cough) Cbd Oil 0.5 ml PO DAILY Discharge Orders: Discharge ED (Routine); Ordered 05/02/22 Ordered By: Ruby Arroyo Referrals: Marilyn Trivedi APN [Primary Care Provider] - 1-3 days Discharge Diet: Advance as tolerated Discharge Activity: Resume usual activity Patient Instructions: Recurrent Seizures in Adults (ED) Coding Level of Care Code ED Charging Board Operator for Chg Fwd Exam Comprehensive
[2022-05-02 18:45] LABS: Add Urine Microscopic? NO; Charge for UA Resulting for Rev
[2022-05-02 18:49] LABS: Bilirubin Urine Neg (Negative); Blood Urine Neg (Negative); Glucose Urine UA Norm (Normal); Ketones Urine Negative (Negative); Leukocyte Esterase Urine Negative (Negative); Nitrate Urine Negative (Negative); Protein Urine Neg (Negative); Specific Gravity, Urine 1.015 (1.005-1.030); Urine Appearance Clear (CLEAR); Urine Color Yellow (Yellow); Urobilinogen Urine Neg (Negative); pH Urine 7 (5-7)
[2022-05-02 18:50] LABS: Alanine Aminotransferase 28 U/L (0-33); Albumin Level 2.9 g/dL (3.5-5.2); Alkaline Phosphatase 129 U/L (35-105); Anion Gap 11.5 (5-19); Aspartate Amino Transferase 19 U/L (0-32); Blood Urea Nitrogen 21 mg/dL (8-23); Calcium 8.4 mg/dL (8.5-10.5); Carbon Dioxide 27 mmol/L (22-29); Chloride 103 mmol/L (98-107); Creatinine Clr Calc Pharmacy 55.7954; Globulin 3.4 g/dL (1.3-4.6); Glomerular Filtration Rate 99.7 mL/min (90-130); Glucose 87 mg/dL (65-115); Osmolality Calculated 286 mOsm/kg (285-295); Potassium 4.5 mmol/L (3.5-5.1); Sodium 137 mmol/L (136-145); Total Bilirubin 0.2 mg/dL (0.15-1.2); Total Protein 6.3 g/dL (6.6-8.7)
[2022-05-02 20:32] LABS: Phenytoin Dilantin 9.3 ug/mL (10-20)
== END 2022-05-02 22:20 | disposition home or self-care (01) ==
PROVIDERS: Family Medicine; Emergency Provider Emergency Medicine; PCP Nurse Practitioner Family
DX: G40.909 Epilepsy, unspecified, not intractable, without status epilepticus (principal); G80.9 Cerebral palsy, unspecified
CPT/HCPCS: 36415; 70450; 71045; 80053; 80185; 81003; 85025; 93005; 99284

== ENCOUNTER 2022-06-01 12:56 | Inpatient (IN) | payer MEDICARE, MEDICAID, SELFPAY ==
[2022-06-01] VITALS (13 sets, daily range): BP systolic 49–135; BP diastolic 25–69; PULSE 76–114; RESP 17–29; TEMP 37.1–38.2; O2SAT 82–95
--- NOTE | 2022-06-01 13:21 | XR_ITS ---
WS: [id number] Portable AP semiupright chest, 06/01/2022 Clinical Data: dyspnea/cough Comparison: Portable chest, 05/02/2022 Findings: There is a patchy opacity of left lower lobe which may represent atelectasis and/or pneumon ia. There is a small left effusion. The heart is enlarged. The aortic arch shows calcification and to rtuosity. There is a generator overlying the left lateral chest with wires leading to the left side o f the C6-C7 vertebra. Monitor leads are on the chest wall. There is an healed old left humeral head a nd neck fracture. XR/XR chest 1V portable [id number] Impression: 1. Minimal patchy opacity in the left lower lobe which could represent atelecta sis and/or pneumonia. 2. Small left pleural effusion. 3. Cardiomegaly and atherosclerosis.
--- NOTE | 2022-06-01 13:21 | ECG_ITS ---
[facility] Test Date: 2022-06-01 Pat Name: Dasia Brian Department: Room: Gender: Female Inseamer: : [id number] Requested By: Gil Pettit Order Number: [id number] Cristian MD: Rubi Veloz M.D. Measurements Intervals [place] Rate: 85 P: 3 KS: 156 QRS: 24 QRSD: 81 T: 29 QT: 356 QTc: 423 Interpretive Statements SINUS RHYTHM Compared to ECG 05/02/2022 18:20:13 No significant changes Electronically Signed On 06-01-2022 16:49:30 VP GENETIC by Rubi Veloz M.D. [email or web address]
[2022-06-01 13:30] LABS: Glucose Point of Care 139 mg/dL (70-110)
[2022-06-01 13:52] LABS: Glucose Point of Care 128 mg/dL (70-110)
[2022-06-01 14:07] LABS: Protein Urine Neg (Negative); Specific Gravity, Urine 1.025 (1.005-1.030); Urine Appearance Clear (CLEAR); Urine Color Amber (Yellow); pH Urine 6 (5-7)
[2022-06-01 14:08] LABS: Add Urine Microscopic? YES; Bilirubin Urine Neg (Negative); Blood Urine 3+ (Negative); Glucose Urine UA Norm (Normal); Ketones Urine Negative (Negative); Leukocyte Esterase Urine 1+ (Negative); Nitrate Urine Positive (Negative); Urobilinogen Urine Neg (Negative)
[2022-06-01 14:11] LABS: Alanine Aminotransferase 45 U/L (0-33); Albumin Level 2.8 g/dL (3.5-5.2); Alkaline Phosphatase 114 U/L (35-105); Anion Gap 10.6 (5-19); Aspartate Amino Transferase 26 U/L (0-32); Blood Urea Nitrogen 22 mg/dL (8-23); Calcium 8.7 mg/dL (8.5-10.5); Carbon Dioxide 26 mmol/L (22-29); Chloride 103 mmol/L (98-107); Globulin 3.7 g/dL (1.3-4.6); Glomerular Filtration Rate 123.1 mL/min (90-130); Glucose 119 mg/dL (65-115); Osmolality Calculated 284 mOsm/kg (285-295); Potassium 4.6 mmol/L (3.5-5.1); Sodium 135 mmol/L (136-145); Total Bilirubin 0.2 mg/dL (0.15-1.2); Total Protein 6.5 g/dL (6.6-8.7)
[2022-06-01 14:34] LABS: Bacteria Urine 3+ /hpf; Calcium Oxalate Crystals Urine 0-4 /hpf; RBC Urine 15-25 /hpf (0-2); Squamous Epithelial Cell Urine 0-4 /hpf (0-5); WBC Urine 15-25 /hpf (0-5)
[2022-06-01 14:36] LABS: Add Urine Culture? Yes
[2022-06-01] MEDS: ondansetron 2 mg/ML SDV 2 mL 4 MG IVP (14:43)
--- NOTE | 2022-06-01 15:02 | ED_ITS ---
HPI - Altered Mental Status General: Chief Complaint: Altered Mental Status Stated Complaint: DECREASED LOC/ RECENT UTI Time Seen by Provider: 06/01/22 13:04 PFSH ED PFSH: Medical History Brain injury Encephalopathy chronic Epilepsy Generalized epilepsy Rheumatoid arthritis Seizures Urinary retention Surgical History History of craniotomy Family History Other No pertinent family history Social History Smoking and tobacco status: never smoked History of recent travel: No Course Vital Signs: Vital signs: Vital Signs Pulse Rate 76 06/01/22 13:01 Respiratory Rate 17 06/01/22 13:01 Blood Pressure 135/69 06/01/22 13:01 Pulse Oximetry 95 06/01/22 13:01 Oxygen Delivery Me thod 06/01/22 13:01 Oxygen Flow Rate 3 06/01/22 13:01 MDM - Altered Mental Status Lab Data 06/01/22 13:38 06/01/22 13:40 Radiology Impressions Chest X-Ray 06/01/22 13:21 Impression: 1. Minimal patchy opacity in the left lower lobe which could represent atelect asis and/or pneumonia. 2. Small left pleural effusion. 3. Cardiomegaly and atherosclerosis. Laboratory Results WBC Cancelled 06/01/22 13:40 Corrected WBC Cancelled 06/01/22 13:40 RBC Cancelled 06/01/22 13:40 Hgb Cancelled 06/01/22 13:40 Hct Cancelled 06/01/22 13:40 MCV Cancelled 06/01/22 13:40 MCH Cancelled 06/01/22 13:40 MCHC Cancelled 06/01/22 13:40 RDW Cancelled 06/01/22 13:40 Plt Count Cancelled 06/01/22 13:40 MPV Cancelled 06/01/22 13:40 Gran % Cancelled 06/01/22 13:40 Neut % (Auto) Cancelled 06/01/22 13:40 Lymph % (Auto) Cancelled 06/01/22 13:40 [place] % (Auto) Cancelled 06/01/22 13:40 Eos % (Auto) Cancelled 06/01/22 13:40 Baso % (Auto) Cancelled 06/01/22 13:40 Neut # (Auto) Cancelled 06/01/22 13:40 Lymph # (Auto) Cancelled 06/01/22 13:40 [place] # (Auto) Cancelled 06/01/22 13:40 Eos # (Auto) Cancelled 06/01/22 13:40 Baso # (Auto) Cancelled 06/01/22 13:40 Absolute Gran (auto) Cancelled 06/01/22 13:40 Nucleated RBC % (auto) Cancelled 06/01/22 13:40 Nucleated RBCs # Cancelled 06/01/22 13:40 Sodium 135 mmol/L (136-145) L 06/01/22 13:40 Potassium 4.6 mmol/L (3.5-5.1) 06/01/22 13:40 Chloride 103 mmol/L (98-107) 06/01/22 13:40 Carbon Dioxide 26 mmol/L (22-29) 06/01/22 13:40 Anion Gap 10.6 (5-19) 06/01/22 13:40 BUN 22 mg/dL (8-23) 06/01/22 13:40 Creatinine 0.5 mg/dL (0.5-0.9) 06/01/22 13:40 GFR Calculation 123.1 mL/min (90-130) 06/01/22 13:40 Glucose 119 mg/dL (65-115) H 06/01/22 13:40 POC Glucose 128 mg/dL (70-110) H 06/01/22 13:37 Calculated Osmolality 284 mOsm/kg (285-295) L 06/01/22 13:40 Calcium 8.7 mg/dL (8.5-10.5) 06/01/22 13:40 Total Bilirubin 0.2 mg/dL (0.15-1.2) 06/01/22 13:40 AST 26 U/L (0-32) 06/01/22 13:40 ALT 45 U/L (0-33) H 06/01/22 13:40 Alkaline Phosphatase 114 U/L (35-105) H 06/01/22 13:40 Total Protein 6.5 g/dL (6.6-8.7) L 06/01/22 13:40 Albumin 2.8 g/dL (3.5-5.2) L 06/01/22 13:40 Globulin 3.7 g/dL (1.3-4.6) 06/01/22 13:40 Urine Color [place] (Yellow) 06/01/22 13:38 Urine Appearance Clear (CLEAR) 06/01/22 13:38 Urine pH 6 (5-7) 06/01/22 13:38 Ur Specific [place] 1.025 (1.005-1.030) 06/01/22 13:38 Urine Protein Neg (Negative) 06/01/22 13:38 Urine Glucose (UA) Norm (Normal) 06/01/22 13:38 Urine Ketones Negative (Negative) 06/01/22 13:38 Urine Blood 3+ (Negative) H 06/01/22 13:38 Urine Nitrate Positive (Negative) H 06/01/22 13:38 Urine Bilirubin Neg (Negative) 06/01/22 13:38 Urine Urobilinogen Neg mg/dL (Negative) 06/01/22 13:38 Ur Leukocyte Esterase 1+ (Negative) H 06/01/22 13:38 Urine RBC 15-25 /hpf (0-2) H 06/01/22 13:38 Urine WBC 15-25 /hpf (0-5) H 06/01/22 13:38 Ur Squamous Epith Cells 0-4 /hpf (0-5) H 06/01/22 13:38 Calcium Oxalate Crystal 0-4 /hpf H 06/01/22 13:38 Other Crystals /hpf 06/01/22 13:38 Amorphous Sediment Not Reportable 06/01/22 13:38 Urine Bacteria 3+ /hpf (NONE) H 06/01/22 13:38 Urine Yeast 2+ /hpf H 06/01/22 13:38 Discharge Plan Discharge Condition: Stable Prescriptions: No Action folic acid 1 mg tablet 1 mg PO DAILY montelukast [Singulair] 10 mg tablet 10 mg PO DAILY multivitamin Tablet 1 tab PO DAILY polyethylene glycol 3350 [Miralax] 17 gram/dose powder 8.5 gm PO DAILY fluticasone propionate 50 mcg/actuation spray,suspension 1 spray INTRANASAL DAILY PRN (Reason: Nasal Congestion) Rx Instructions: administer into each nostril pantoprazole [Protonix] 40 mg tablet,delayed release (DR/EC) 40 mg PO DAILY prednisone 2.5 mg tablet 2.5 mg PO DAILY tamsulosin [Flomax] 0.4 mg capsule 0.4 mg PO DAILY zonisamide [Zonegran] 100 mg capsule 100 mg PO BID Flovent HFA 220 mcg/actuation HFA aerosol inhaler 1 inh INHALATION BID Vimpat 150 mg tablet 150 mg PO BID sucralfate [Carafate] 1 gram tablet 1 gm PO .tid and with meals cholecalciferol (vitamin D3) 1,250 mcg (50,000 unit) capsule 50,000 unit PO Q7D famotidine [Pepcid] 40 mg tablet 20 mg PO BID promethazine-codeine Syrup 1 ea PO Q4H PRN (Reason: Cough) Rx Instructions: 1 tsp dextromethorphan-guaifenesin 30-200 mg/5 mL liquid 10 ml PO BID PRN (Reason: Cough) phenazopyridine [Azo Urinary Pain Relief] 95 mg tablet 95 mg PO TID PRN (Reason: Bladder Spasms) alprazolam [Xanax] 0.25 mg tablet 0.25 mg PO Q4H PRN (Reason: Anxiety) acetaminophen-codeine [Tylenol-Codeine #3] 300-30 mg tablet 1 tab PO Q4H PRN (Reason: Pain) clorazepate dipotassium 7.5 mg tablet 7.5 mg PO Q8H PRN (Reason: Seizures) acetaminophen [Tylenol] 325 mg capsule 325 mg PO Q4H PRN (Reason: Pain) diazepam 10 mg kit 10 mg [place] Q8H PRN (Reason: Seizures) simethicone [Gas-X Extra Strength] 125 mg capsule 125 mg PO Q8H PRN (Reason: Gastric Reflux) docusate sodium [Colace] 100 mg capsule 100 mg PO BEDTIME PRN (Reason: Constipation) calcium carbonate [Tums] 200 mg calcium (500 mg) tablet,chewable 200 mg PO DAILY PRN (Reason: Heartburn) Zofran 4 mg Tablet 4 mg PO Q6H PRN (Reason: Nausea) Macrodantin 100 mg Capsule 100 mg PO QPM Rx Instructions: must administer with a meal/food cyanocobalamin (vitamin B-12) 500 mcg Tablet 500 mcg PO DAILY ascorbic acid (vitamin C) [Vitamin C] 500 mg Tablet 2,000 mg PO DAILY fluoxetine 20 mg Tablet 20 mg PO DAILY vitamin B complex Tablet 1 tab PO DAILY scopolamine base 1 mg over 3 days Patch 3 Day 1 patch TRANSDERMAL Q3D Acidophilus Tablet,Chewable 1 tab PO DAILY calcium citrate-vitamin D3 [Citracal plus D] 250 mg-5 mcg (200 unit) Tablet 1 tab PO DAILY Black [place] 1 tab PO BID triamcinolone acetonide 0.1 % Cream 1 applic TOPICAL BID PRN (Reason: Rash) betamethasone dipropionate 0.05 % Cream 1 applic TOPICAL BID PRN (Reason: Rash) albuterol sulfate 90 mcg/actuation Hfa Aerosol Inhaler 2 puff INHALATION QID PRN (Reason: Shortness Of Breath) clotrimazole 1 % Cream 1 applic TOPICAL BID PRN (Reason: Rash) Boost Liquid 1 ea PO TID Systane Ultra 0.4-0.3 % Drops 2 drp OPHTHALMIC (EYE) QID diclofenac sodium [Voltaren] 1 % Gel 4 g TOPICAL QID PRN (Reason: Pain) Rx Instructions: apply to single knee, ankle, foot; for foot includes sole/toes/top of foot Cough Drops 3.2 mg Lozenge 3.2 mg MUCOUS MEMBRANE Q2H PRN (Reason: Cough) Cbd Oil 0.5 ml PO DAILY Referrals: Marilyn Trivedi APN [Primary Care Provider] - Coding Level of Care Code ED 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
--- NOTE | 2022-06-01 15:09 | ED_ITS ---
HPI - General Adult General: Chief complaint: Altered Mental Status Stated complaint: DECREASED LOC/ RECENT UTI Time Seen by Provider: 06/01/22 13:04 History of Present Illness: 66-year-old female arrives in the intermediate from a independent living house. There is a nonmedical caregiver with the patient. She has been short of breath and not as alert as she usually is. She has a history of traumatic brain injury and seizures as well. She has contractures to her lower extremities the caregiver states she will help with transfers at times. She is poorly responsive today she frequently will have a respiratory pattern where she holds her breath. She has had a nonproductive cough and a fever the last couple of days she has an indwelling Vallecillo as well. He responds with moans to painful stimuli. Caregiver also notes that she frequently has coughing and sputtering when she tries to eat and the use Thick- It for liquids. Onset (ago): day(s) Relieving factors: none Exacerbating factors: none Associated symptoms: Reports confusion, cough, decreased appetite, dyspnea, fevers/chills, malaise and short of breath; Deny chest pain, rash or vomiting Review of Systems General: Reports: ROS unobtainable due to medical condition (Limited due to medical condition, ROS per caregiver) Const: Reports: fever(s), chills, change in appetite and malaise ENMT: Denies: nasal discharge or nasal congestion Card: Denies: chest pain or edema Resp: Reports: dyspnea, non-productive cough and wheezing GI: Denies: vomiting or diarrhea Skin/Breast: Denies: rash or pruritus Neuro: Reports: confusion PFSH ED PFSH: Medical History (Updated 06/11/22 @ 08:46 by Gil Alexander DO) Acquired intellectual disability Altered mental status Brain injury Dehydration Encephalopathy chronic Epilepsy Generalized epilepsy Rheumatoid arthritis Seizures Urinary retention Surgical History History of craniotomy Family History Other No pertinent family history Social History Smoking and tobacco status: never smoked History of recent travel: No Physical Exam HENMT: COMMON NORMALS: normocephalic and atraumatic HEAD & SCALP: normocephalic and atraumatic Resp: EFFORT & INSPECTION: Yes abnormal respiratory pattern AUSCULTATION: rhonchi and wheezes Cardio: COMMON NORMALS: regular rate, regular rhythm and No murmurs present (Cardio) RATE: regular rate RHYTHM: regular rhythm GI: COMMON NORMALS: Soft to palpation and No hepatosplenomegaly present AUSCULTATION: Yes normoactive bowel sounds PALPATION: Yes Soft to palpation, No Tenderness to palpation present (GI), No Guarding due to palpation present (GI) and Yes No hepatosplenomegaly present Extremity: COMMON NORMALS: normal to inspection, capillary refill normal, no clubbing, cyanosis or edema, no calf tenderness and no pedal edema Skin: COMMON NORMALS: no rashes or lesions noted GENERAL SKIN EXAM: no rashes or lesions noted Course Vital Signs: Vital signs: Vital Signs Temperature 98.2 F 06/06/22 11:51 Pulse Rate 80 06/06/22 17:08 Respiratory Rate 22 H 06/06/22 17:08 Blood Pressure 123/73 06/06/22 11:51 Pulse Oximetry 94 06/06/22 17:08 Oxygen Delivery Me thod 06/06/22 13:39 Oxygen Flow Rate 1 06/06/22 13:39 [facility] - General Adult Medical Decision Making Pneumonia (left lower lobe) with acute cystitis will admit discussed with hospitalist orders written Medical Records I reviewed the patient's medical records. Lab Data I reviewed the patient's lab results. 06/01/22 13:38 06/01/22 13:40 Radiology Impressions Chest X-Ray 06/01/22 13:21 Impression: 1. Minimal patchy opacity in the left lower lobe which could represent atelectasis and/or pneumonia. 2. Small left pleural effusion. 3. Cardiomegaly and atherosclerosis. Chest/Abdomen/Pelvis CT 06/02/22 05:20 IMPRESSION: 1. Small lung volumes. Mild right upper lobe and [id number] lingular ground-glass opacities and small regions of patchy consolidation. Moderate to severe right lower lobe and moderate left lower lobe regions of consolidation with some ground-glass opacities. These findings are suggestive of multifocal pneumonia. Recommend follow-up until complete resolution. 2. Buol-pa-qghtbgkb cardiomegaly. 3. Chronic changes, as noted above. IMPRESSION: 1. No acute abnormality seen on the non-contrast abdominal and pelvic CT. No abdominal or pelvic fluid collections or abscess. 2. Chronic changes, as noted above. Head CT 06/02/22 05:47 IMPRESSION: Stable chronic changes of brain as described. Laboratory Results WBC Cancelled 06/01/22 13:40 Corrected WBC Cancelled 06/01/22 13:40 RBC Cancelled 06/01/22 13:40 Hgb Cancelled 06/01/22 13:40 Hct Cancelled 06/01/22 13:40 MCV Cancelled 06/01/22 13:40 MCH Cancelled 06/01/22 13:40 MCHC Cancelled 06/01/22 13:40 RDW Cancelled 06/01/22 13:40 Plt Count Cancelled 06/01/22 13:40 MPV Cancelled 06/01/22 13:40 Gran % Cancelled 06/01/22 13:40 Neut % (Auto) Cancelled 06/01/22 13:40 Lymph % (Auto) Cancelled 06/01/22 13:40 Gentry % (Auto) Cancelled 06/01/22 13:40 Eos % (Auto) Cancelled 06/01/22 13:40 Baso % (Auto) Cancelled 06/01/22 13:40 Neut # (Auto) Cancelled 06/01/22 13:40 Lymph # (Auto) Cancelled 06/01/22 13:40 Gentry # (Auto) Cancelled 06/01/22 13:40 Eos # (Auto) Cancelled 06/01/22 13:40 Baso # (Auto) Cancelled 06/01/22 13:40 Absolute Gran (auto) Cancelled 06/01/22 13:40 Nucleated RBC % (auto) Cancelled 06/01/22 13:40 Nucleated RBCs # Cancelled 06/01/22 13:40 Sodium 135 mmol/L (136-145) L 06/01/22 13:40 Potassium 4.6 mmol/L (3.5-5.1) 06/01/22 13:40 Chloride 103 mmol/L (98-107) 06/01/22 13:40 Carbon Dioxide 26 mmol/L (22-29) 06/01/22 13:40 Anion Gap 10.6 (5-19) 06/01/22 13:40 BUN 22 mg/dL (8-23) 06/01/22 13:40 Creatinine 0.5 mg/dL (0.5-0.9) 06/01/22 13:40 GFR Calculation 123.1 mL/min (90-130) 06/01/22 13:40 Glucose 119 mg/dL (65-115) H 06/01/22 13:40 POC Glucose 128 mg/dL (70-110) H 06/01/22 13:37 Calculated Osmolality 284 mOsm/kg (285-295) L 06/01/22 13:40 Calcium 8.7 mg/dL (8.5-10.5) 06/01/22 13:40 Total Bilirubin 0.2 mg/dL (0.15-1.2) 06/01/22 13:40 AST 26 U/L (0-32) 06/01/22 13:40 ALT 45 U/L (0-33) H 06/01/22 13:40 Alkaline Phosphatase 114 U/L (35-105) H 06/01/22 13:40 Total Protein 6.5 g/dL (6.6-8.7) L 06/01/22 13:40 Albumin 2.8 g/dL (3.5-5.2) L 06/01/22 13:40 Globulin 3.7 g/dL (1.3-4.6) 06/01/22 13:40 Urine Color Dominique (Yellow) 06/01/22 13:38 Urine Appearance Clear (CLEAR) 06/01/22 13:38 Urine pH 6 (5-7) 06/01/22 13:38 Ur Specific Norris 1.025 (1.005-1.030) 06/01/22 13:38 Urine Protein Neg (Negative) 06/01/22 13:38 Urine Glucose (UA) Norm (Normal) 06/01/22 13:38 Urine Ketones Negative (Negative) 06/01/22 13:38 Urine Blood 3+ (Negative) H 06/01/22 13:38 Urine Nitrate Positive (Negative) H 06/01/22 13:38 Urine Bilirubin Neg (Negative) 06/01/22 13:38 Urine Urobilinogen Neg mg/dL (Negative) 06/01/22 13:38 Ur Leukocyte Esterase 1+ (Negative) H 06/01/22 13:38 Urine RBC 15-25 /hpf (0-2) H 06/01/22 13:38 Urine WBC 15-25 /hpf (0-5) H 06/01/22 13:38 Ur Squamous Epith Cells 0-4 /hpf (0-5) H 06/01/22 13:38 Calcium Oxalate Crystal 0-4 /hpf H 06/01/22 13:38 Other Crystals /hpf 06/01/22 13:38 Amorphous Sediment Not Reportable 06/01/22 13:38 Urine Bacteria 3+ /hpf (NONE) H 06/01/22 13:38 Urine Yeast 2+ /hpf H 06/01/22 13:38 Discharge Plan Discharge Patient Disposition: Admitted As Inpatient Admit Provider: Jaskaran Urias Clinical Impression: Pneumonia, Seizure, Hypoxia, Acute cystitis Condition: Stable Coding Level of Care Code 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
[2022-06-01] MEDS: azithromycin 500 MG in sodium chloride 0.9% 250 ML 250 MG IV (15:17)
[2022-06-01 15:54] LABS: ABG PCO2 41.6 mmHg (35-45); ABG PH Result 7.38 (7.35-7.45); Alveolar-Arterial Oxygen Gradi 18.9 mmHg (5-10); Arterial Blood Gas Hematocrit 41.7 % (37-47); Base Excess ABG -0.3 mmol/L (-2.0-2.0); Blood Gas Allen Test Pos; Blood Gas Operator Identificat glc; Blood Gas Sample Site Radial, right; Blood Gas Sample Type Arterial; Carboxyhemoglobin < 1.0 %THgb (0.4-20.1); HCO3 ABG 24.8 mmol/L (22-26); HGB O2 Sat 90.4 % (95-100); Ionized Calcium Level - ABG 1.2 mmol/L (1.1-1.4); Methemoglobin 0.4 % (0.4-1.5); Oxygen Device NC; Oxygen Saturation ABG 91.3; PO2 ABG 61.7 mmHg (80.0-100.0); Potassium Level - ABG 4.6 mmol/L (3.5-5.0); Total Hemoglobin 13.6 g/dL (12-16)
[2022-06-01] MEDS: cefTRIAXone 1,000 MG in sodium chloride 0.9% (plus) 50 ML 100 MG IV (16:23)
[2022-06-01 16:55] LABS: Basophils % 0.2 %; Eosinophils # 0.1 10^3/uL (0.0-0.8); Eosinophils % 1.1 %; Hematocrit 41.9 % (37.0-47.0); Lymphocytes # 0.5 10^3/uL (0.8-4.8); Lymphocytes % 6.2 %; Mean Platelet Volume 9.3 fL (7.4-10.4); Monocytes # 0.2 10^3/uL (0.2-0.9); Monocytes % 2.8 %; Neutrophils # 7.23 10^3/uL (1.8-7.7); Neutrophils % 89.5 %; Nucleated Red Blood Cells % 0 %; Platelet Count 229 10^3/cmm (130-400); Red Blood Count 4.19 10^6/uL (4.1-5.3); Red Cell Distribution Width 13.1 % (12.1-15.1); White Blood Count 8.1 10^3/uL (4.0-10.0)
[2022-06-01] MEDS: D5-NS 0.45% + KCL 20 mEq 20 MEQ/1,000 ML BAG 100 MEQ IV (18:19)
--- NOTE | 2022-06-01 18:39 | P.HP_ITS ---
Providers/Chief Complaint Admitting Physician: aJskaran Urias MD Primary Care Provider: Marilyn Trivedi APN Chief Complaint: DECREASED LOC/ RECENT UTI History of Present Illness Dasia Brian is a 66 year old female with PMH of TBI, Seizure disorder,long- term care facility, delayed development,partial lobectomy of frontal, temporal and parietal lobe, s/p [place] neuro stimulator placement, UTIs, was brought in with c/o cough,as well as desaturating to 80s at the facility today, she was a lso less active today as per her critical care unit nurse,usually she is more active and chirpy.While at the time of my interaction with her she was not complaining of any pain,she is currently requiring 4 Ls oxygen to maintain decent saturation, usually she does not use oxygen,critical care unit nurse is complaining of long standing non productive cough.she is also having fever here in hospital with noted Tmax of 100.7. She was discharged with longoria catheter in April last year and the catheter has not been changed as of of yet. her pertinent labs , imging studies and vitals have been reviewed. Review of Systems General: Reports: 10 or more systems reviewed and unremarkable except in HPI and below Const: Denies: fever(s), chills, body aches, change in appetite or diaphoresis Resp: Reports: pain on inspiration; Denies: dyspnea GI: Denies: abdominal pain, nausea, vomiting, diarrhea or constipation : Denies: flank pain Musc: Denies: back pain, extremity pain or extremity swelling Neuro: Denies: headache(s), difficulty walking or confusion Medications/Allergies Home Medications Medication Instructions Recorded Confirmed Last Taken Type acetaminophen 300 mg-codeine 30 mg 1 tab PO Q4H PRN Pain 11/25/19 06/01/22 Unknown History tablet (Tylenol-Codeine #3) acetaminophen 325 mg capsule 325 mg PO Q4H PRN Pain 11/25/19 06/01/22 03/09/22 History (Tylenol) alprazolam 0.25 mg tablet (Xanax) 0.25 mg PO Q4H PRN Seizures 11/25/19 06/01/22 Unknown History calcium carbonate 200 mg calcium 200 mg PO DAILY PRN Heartburn 11/25/19 06/01/22 Unknown History (500 mg) chewable tablet (Tums) cholecalciferol (vitamin D3) 1,250 50,000 unit PO Q7D 11/25/19 06/01/22 Unknown History mcg (50,000 unit) capsule diazepam 10 mg rectal kit 10 mg PA Q8H PRN Seizures 11/25/19 06/01/22 Unknown History docusate sodium 100 mg capsule 100 mg PO BEDTIME PRN Constipation 11/25/19 06/01/22 Unknown History (Colace) fluticasone propionate 220 1 inh inhalation BID 11/25/19 06/01/22 06/01/22 History mcg/actuation HFA aerosol inhaler (Flovent HFA) fluticasone propionate 50 1 spray intranasal DAILY PRN Nasal 11/25/19 06/01/22 06/01/22 History mcg/actuation nasal Congestion spray,suspension folic acid 1 mg tablet 1 mg PO DAILY 11/25/19 06/01/22 06/01/22 History lacosamide 150 mg tablet (Vimpat) 150 mg PO BID 11/25/19 06/01/22 06/01/22 History montelukast 10 mg tablet 10 mg PO DAILY 11/25/19 06/01/22 06/01/22 History (Singulair) multivitamin 1 tab PO DAILY 11/25/19 06/01/22 06/01/22 History pantoprazole 40 mg tablet,delayed 40 mg PO DAILY 11/25/19 06/01/22 06/01/22 History release (Protonix) phenazopyridine 95 mg tablet (Azo 95 mg PO TID PRN Bladder Spasms 11/25/19 06/01/22 Unknown History Urinary Pain Relief) polyethylene glycol 3350 17 8.5 gm PO DAILY 11/25/19 06/01/22 06/01/22 History gram/dose oral powder (Miralax) prednisone 2.5 mg tablet 2.5 mg PO DAILY 11/25/19 06/01/22 06/01/22 History simethicone 125 mg capsule (Gas-X 125 mg PO Q8H PRN Gastric Reflux 11/25/19 06/01/22 Unknown History Extra Strength) sucralfate 1 gram tablet (Carafate) 1 gm PO .tid and with meals 11/25/19 06/01/22 06/01/22 History tamsulosin 0.4 mg capsule (Flomax) 0.4 mg PO DAILY 11/25/19 06/01/22 06/01/22 History zonisamide 100 mg capsule 100 mg PO BID 11/25/19 06/01/22 06/01/22 History (Zonegran) Black Steiner 1 tab PO BID 10/15/21 06/01/22 03/09/22 History Cbd Oil 0.5 ml PO DAILY 10/15/21 06/01/22 06/01/22 History Lactobacillus acidophilus 1 tab PO DAILY 10/15/21 06/01/22 06/01/22 History (Acidophilus chewable tablet) albuterol sulfate 90 mcg/actuation 2 puff inhalation QID PRN 10/15/21 06/01/22 03/08/22 History aerosol inhaler Shortness Of Breath ascorbic acid (vitamin C) 500 mg 2,000 mg PO DAILY 10/15/21 06/01/22 05/31/22 History tablet (Vitamin C) betamethasone dipropionate 0.05 % 1 applic topical BID PRN Rash 10/15/21 06/01/22 Unknown History topical cream calcium citrate 250 mg 1 tab PO DAILY 10/15/21 06/01/22 06/01/22 History calcium-vitamin D3 5 mcg (200 unit) tablet clotrimazole 1 % topical cream 1 applic topical BID PRN Rash 10/15/21 06/01/22 Unknown History cyanocobalamin (vitamin B-12) 500 500 mcg PO DAILY 10/15/21 06/01/22 05/31/22 History mcg tablet diclofenac sodium 1 % topical gel 4 g topical QID PRN Pain 10/15/21 06/01/22 Unknown History fluoxetine 20 mg tablet 20 mg PO DAILY 10/15/21 06/01/22 05/31/22 History food supplemt, lactose-reduced 1 ea PO TID 10/15/21 06/01/22 06/01/22 History menthol 3.2 mg lozenges 3.2 mg mucous membrane Q2H PRN 10/15/21 06/01/22 Unknown History Cough peg 400-propylene glycol 0.4 %-0.3 2 drp ophthalmic (eye) QID 10/15/21 06/01/22 06/01/22 History % eye drops (Systane Ultra) scopolamine base 1 mg over 3 days 1 patch transdermal Q3D 10/15/21 06/01/22 10/15/21 History transdermal patch triamcinolone acetonide 0.1 % 1 applic topical BID PRN Rash 10/15/21 06/01/22 Unknown History topical cream vitamin B complex 1 tab PO DAILY 10/15/21 06/01/22 05/31/22 History nitrofurantoin macrocrystal 100 mg 100 mg PO QPM 03/09/22 06/01/22 05/31/22 History capsule (Macrodantin) ondansetron HCl 4 mg tablet 4 mg PO Q6H PRN Nausea 03/09/22 06/01/22 Unknown History loyjoqsxcs-LH-wswnsfymurtjj 6.25 5 ml PO BID PRN Cough 06/01/22 06/01/22 Unknown History mg-15 mg-325 mg/15 mL oral liquid famotidine 20 mg tablet 20 mg PO BID 06/01/22 06/01/22 06/01/22 History levetiracetam 500 mg tablet 500 mg PO BID 06/01/22 06/01/22 06/01/22 History nasal dilators (Breathe Right 06/01/22 06/01/22 Unknown History strips) phenytoin 50 mg chewable tablet 50 mg PO BID 06/01/22 06/01/22 06/01/22 History (Dilantin Infatabs) Allergies Allergy/AdvReac Type Severity Reaction Status Date / Time aspirin Allergy Unknown Verified 06/01/22 15:01 Influenza Virus Vaccines Allergy Unknown Verified 06/01/22 15:01 PFSH Acute PFSH: Medical History (Updated 06/01/22 @ 18:59 by Jaskaran Urias MD) Brain injury Encephalopathy chronic Epilepsy Generalized epilepsy Rheumatoid arthritis Seizures Urinary retention Surgical History History of craniotomy Family History Other No pertinent family history Social History Smoking and tobacco status: never smoked History of recent travel: No Vitals/I&O/Wt Last Vital Signs Pulse 100 06/01/22 16:30 Resp 23 H 06/01/22 16:30 BP 135/69 06/01/22 16:30 Pulse Ox 84 L 06/01/22 16:30 O2 Del Method 06/01/22 13:01 O2 Flow Rate 3 06/01/22 13:01 06/01/22 06/01/22 06/01/22 06:59 14:59 22:59 Intake Total 250 / 250 Balance 250 / 250 Physical Exam Narrative: 66 y o old pleasant lady alert awake, able to tell me her name, says she is not hurting anywhere, currently do not have any active complaints Resp: COMMON NORMALS: clear to auscultation bilaterally EFFORT & INSPECTION: Yes symmetric chest movement AUSCULTATION: clear to auscultation bilaterally Cardio: COMMON NORMALS: regular rate, regular rhythm, S1 normal heart sound present, S2 normal heart sound present, No gallops present (Cardio), No murmurs present (Cardio), No rub (Cardio) and Peripheral pulses 2+ throughout RATE: regular rate RHYTHM: regular rhythm HEART SOUNDS: S1 normal heart sound pr esent and S2 normal heart sound present PERIPHERAL PULSES: Peripheral pulses 2+ throughout GI: COMMON NORMALS: Normal to inspection, nondistended, normoactive bowel sounds present, Soft to palpation, non-tender, No hepatosplenomegaly present and no masses AUSCULTATION: Yes normoactive bowel sounds PALPATION: Yes Soft to palpation and Yes No hepatosplenomegaly present RECTAL EXAM: deferred Back/Pelvis: COMMON NORMALS: no CVA tenderness Extremity: COMMON NORMALS: no clubbing, cyanosis or edema and no pedal edema Data 06/01/22 16:40 06/01/22 13:40 A&P Assessment and plan (1) Pneumonia: (2) UTI (urinary tract infection): (3) Seizure: (4) Hypoxia: (5) Rheumatoid arthritis: Plan 66 year old female with PMH of TBI, Seizure disorder,long-term care facility, delayed development,partial lobectomy of frontal, temporal and parietal lobe, s/p [place] neuro stimulator placement, UTIs, was brought in with c/o cough,as well as desaturating to 80s at the facility today, she was also less active today as per her critical care unit nurse,usually she is more active and chirpy.While at the time of my interaction with her she was not complaining of any pain,she is currently requiring 4 Ls oxygen to maintain decent saturation, usually she does not use oxygen,critical care unit nurse is complaining of long standing non productive cough. Assessment : AMS 2/2 UTI, PNA ( Possible Aspiration PNA ) Acute Hypoxia 2/2 PNA UTI Fever Monitor Patient for possible developing sepsis as she has fever,though no white count, normal lactic acid, no conclusive signs of end organ dysfunction so far. H/O Seizure disorder Plan : Xray chest : Minimal patchy opacity in the left lower lobe which could represent atelectasis and/or pneumonia.Small left pleural effusion.Cardiomegaly. 2 D echo Blood culture Urine culture Procalcitonin Random cortsiol On zosyn :Deescalate abxs accordingly. Given concerning xray findings will be cautious with fluids.Will prefer gentle I.V Hydration. On hydrocortisone for now patient listed home medication is low dose prednisone,will do random cortisol if greater then 20 will DC hydrocotisone. Continue home seizure as well as other medications. Will keep her npo overnight,keeping risk of aspiration in mind, will get Speech evaluation in am. Duo nebs, supplemental oxygen as needed. Current plan is to get longoria catheter changed.Because raging sepsis kicks on,she is covered with widespread Abxs. Code Status :AND DVT PPX: On lovenox. Attestations Medical Necessity Statement*: Patient needs to be in hospital for AMS,Fever,uti,pna.Anticipated LOS Greater then 2 midnights. Time Spent in Patient Care: Greater than 35 minutes (>than 50% of time spent in counselling and/or direct pt care on unit) . 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
[2022-06-01 18:48] LABS: Lactic Sepsis W/Reflex 2.2 mmol/L (0.5-2.2)
[2022-06-01] MEDS: enoxaparin 30 mg/0.3 mL Syringe SUBCUT (19:55)
[2022-06-01] MEDS: ipratropium-albuterol 3 mL Neb INHALATION (20:05)
[2022-06-01] MEDS: piperacillin-tazobactam 3.375 GM in sodium chloride 0.9% (plus) 50 ML IV (20:23)
[2022-06-01 20:24] LABS: Reflex Lactate Order REFLEX LACTIC ORDERD
[2022-06-01] MEDS: levETIRAcetam 500 mg Tablet PO (20:52)
[2022-06-01] MEDS: sodium chloride 0.9% 1,000 ML 50 ML IV (20:54)
[2022-06-01 21:03] LABS: Lactic Acid level (Lactate) 1.7 mmol/L (0.5-2.2)
[2022-06-01] MEDS: hydrocortisone 100 mg/2 mL SDV 50 MG IVP (21:28)
[2022-06-01] MEDS: sodium chloride 0.9% 1,000 ML 999 ML IV (23:35)
[2022-06-01] MEDS: hydrocortisone 100 mg/2 mL SDV IVP (23:38)
[2022-06-01 23:52] LABS: ABG PCO2 37.5 mmHg (35-45); ABG PH Result 7.37 (7.35-7.45); Arterial Blood Gas Hematocrit 39.8 % (37-47); Base Excess ABG -3.3 mmol/L (-2.0-2.0); Blood Gas Allen Test Pos; Blood Gas Sample Site Radial, right; Blood Gas Sample Type Arterial; HCO3 ABG 21.6 mmol/L (22-26); Oxygen Device OXY MASK; PO2 ABG 62.6 mmHg (80.0-100.0)
[2022-06-02] VITALS (99 sets, daily range): BP systolic 77–167; BP diastolic 47–98; PULSE 62–110; RESP 13–79; TEMP 35.6–36.8; O2SAT 88–100; BMI 23.2
[2022-06-02 00:01] LABS: Glucose Point of Care 183 mg/dL (70-110)
--- NOTE | 2022-06-02 00:19 | ECG_ITS ---
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 Measurements Intervals [place] Rate: 103 P: 56 PA: 161 QRS: 38 QRSD: 70 T: 63 QT: 333 QTc: 436 Interpretive Statements SINUS TACHYCARDIA LOW QRS VOLTAGE IN PRECORDIAL LEADS [QRS DEFLECTION < 1.0 mV IN CHEST LEADS] ABNORMAL RHYTHM ECG INTERPRETATION BASED ON A DEFAULT AGE OF 40 YEARS Compared to ECG 06/01/2022 13:57:03 Low QRS voltage now present Sinus rhythm no longer present Electronically Signed On 06-02-2022 21:52:09 LICENSED CHEMICAL SPRAY TECHNICIAN by Florida Rivera M.D. [email or web address]
[2022-06-02] MEDS: midazolam 1 mg/mL INJ 2 mL 2 MG IVP ×3 (00:32→02:52)
[2022-06-02 00:57] LABS: Basophils # 0.1 10^3/uL (0.0-0.1); Basophils % 0.3 %; Eosinophils % 0.2 %; Hematocrit 42.4 % (37.0-47.0); Hemoglobin 13.2 g/dL (11.5-15.3); Lymphocytes # 1.4 10^3/uL (0.8-4.8); Mean Corpuscular HGB Conc 31.1 g/dL (30.0-36.0); Mean Corpuscular Hemoglobin 31.4 pg (28.0-34.0); Mean Corpuscular Volume 100.7 fl (81-99); Mean Platelet Volume 10.1 fL (7.4-10.4); Monocytes # 0.4 10^3/uL (0.2-0.9); Monocytes % 2.2 %; Neutrophils # 17.54 10^3/uL (1.8-7.7); Neutrophils % 89.9 %; Nucleated Red Blood Cells % 0 %; Platelet Count 305 10^3/cmm (130-400); Red Blood Count 4.21 10^6/uL (4.1-5.3); White Blood Count 19.5 10^3/uL (4.0-10.0)
--- NOTE | 2022-06-02 01:07 | PC.NURSE ---
Addendum entered by Floyd Cintron RN 06/02/22 01:14: RAPID RESPONSE WAS CALLED AT [id number]. PHYSICIAN AT BEDSIDE GAVE VERBAL ORDERS FOR HYDROCORTISONE, VASOPRESSIN, LEVOPHED DRIP AND A BOLUS OF NS RAN WIDE OPEN. THIS NURSE ADMINISTERED THE 100MG HYDROCORTISONE. ICU nurses started thE LEVOPHED. CHARGE NURSE STARTED THE BOLUS. THE FAMILY WAS NOTIFIED OF THE PATIENTS SITUATION AT THE TIME OF TRANSFER BY DOCTOR RICKS. THIS NURSE STAYED WITH THE PATIENT UPON TRANSFER TO THE ICU. REPORTED WAS GIVEN AT BEDSIDE TO CHRIS BROWN. Original Note: AT THE BEGINNING OF THE SHIFT THE PATIENT WAS CONFUSED AND COULD FOLLOW VERBAL COMMANDS, SUCH BEING ABLE TO SQUEEZE MY HANDS AND TELL ME HER NAME. UPON ROUNDING ON THE PT HER LOC WAS DECREASED FROM THE BASELINE SHIFT ASSESSMENT AND WOULD NOT OPEN HER EYES TO VERBAL OR PHYSICAL STIMULI. VITALS WERE IMMEDIATELY OBTAINED WITH SYSTOLIC PRESSURES IN THE 4OS ON THE AUTOMATIC CUFF AND SYSTOLIC PRESSURES IN THE 60S ON MANUAL CUFF OXYGEN SATURATION AT 82% ON 4L. BLOOD GLUCOSE WAS ALSO OBTAINED. THIS NURSE NOTIFIED THE DOCTOR AND CHARGE NURSE AND A RAPID RESPONSE RESPONSE WAS CALLED AT 232
[2022-06-02 01:22] LABS: Alanine Aminotransferase 37 U/L (0-33); Albumin Level 2.8 g/dL (3.5-5.2); Alkaline Phosphatase 90 U/L (35-105); Anion Gap 20.7 (5-19); Aspartate Amino Transferase 21 U/L (0-32); Blood Urea Nitrogen 26 mg/dL (8-23); Calcium 8.3 mg/dL (8.5-10.5); Carbon Dioxide 20 mmol/L (22-29); Chloride 103 mmol/L (98-107); Globulin 2.6 g/dL (1.3-4.6); Glomerular Filtration Rate 49.5 mL/min (90-130); Glucose 164 mg/dL (65-115); Magnesium 1.8 mg/dL (1.7-2.3); Osmolality Calculated 296 mOsm/kg (285-295); Phosphorus 4.3 mg/dL (2.5-4.5); Potassium 4.7 mmol/L (3.5-5.1); Sodium 139 mmol/L (136-145); Total Bilirubin 0.7 mg/dL (0.15-1.2); Total Protein 5.4 g/dL (6.6-8.7)
[2022-06-02 01:23] LABS: Troponin(5th) Baseline 37 ng/L (0-10)
--- NOTE | 2022-06-02 02:27 | P.PNCC_ITS ---
Critical Care Event Note Note is reflective of labs around 11:30 PM. Paged by RN that patient's blood pressure is 60/40. As I was going to respond to the text message a rapid response was called overhead. Pressure was manually taken 3 times. Went to evaluate patient at bedside. She was pretty much unresponsive and moaning. Desaturating down to 70s. Oxime mask placed and saturations improved to 92%. Patient was quite fidgety and therefore it was difficult to obtain blood pressure. There was no ICU bed available to transfer right away. Hydrocortison e 100 mg IV x1 ordered. Levophed ordered. Patient was on 12 of Levophed and blood pressure was still 69/48. Vasopressin was ordered at fixed rate. That was started. Lungs did have rhonchi at bases. She was also given 750 cc normal saline bolus. Shock labs obtained including lactic acid, ABG. Gas showed 7.3 7/37/60 2.6. Patient transferred to ICU. Attempted to reach patient's sister whose phone was not reachable. Called patient's mother who stated that if patient's paperwork and hospital chart states DNR/DNI then that is what she would like to honor at this time since she assumes that this may have been discussed at a prior time. Parents state coming to the hospital and have been at bedside overnight. I updated them in person and answered all questions. Repeat labs did show WBC count 19.5. Lactic acid 4.0, creatinine 1.1, anion gap 20.7, ALT 37. 2-hour delta troponin -10. Procalcitonin 2.71. Replacement of Vallecillo catheter has been ordered at this time. Patient is already on Zosyn. Vancomycin has been ordered renally dosed. Patient blood pressure has improved on 2 pressors however she is requiring both of them at this time. Chest abdomen CT pelvis has been ordered without contrast and it will be done once she is more hemodynamically stable. Patient's mom states that she wears BiPAP at home but keeps taking it off and therefore is noncompliant with it. ER physician placed femoral line emergently. Patient currently on 2 L oxygen saturating 98%. Parents have again confirmed she is DNR/DNI. The high probability of a clinically significant, sudden or life threatening deterioration of the patient's [cardiovascular, respiratory] system(s) required my full and direct attention, intervention and personal management. The critical care time is as shown. 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
[2022-06-02] MEDS: LORazepam 2 mg/mL INJ 1 mL IVP (02:50)
[2022-06-02] MEDS: ipratropium-albuterol 3 mL Neb INHALATION ×4 (03:53→20:28)
[2022-06-02 03:58] LABS: Troponin 5 2HR 26.36 ng/L (0-10)
[2022-06-02 04:01] LABS: NT Pro B Type Natriuretic Pept 370 pg/mL (0-125); Procalcitonin 2.71 ng/mL (0-0.5)
[2022-06-02] MEDS: piperacillin-tazobactam 3.375 GM in sodium chloride 0.9% (plus) 50 ML IV ×3 (04:29→18:36)
--- NOTE | 2022-06-02 05:20 | CTR_ITS ---
PROCEDURE INFORMATION: Exam: CT Chest Without Contrast; Diagnostic Exam date and time: 06/02/2022 5:43 AM Age: 66 years old Clinical indication: Other: Sepsis, shock TECHNIQUE: Imaging protocol: Diagnostic computed tomography of the chest without contrast. Radiation optimization: All CT scans at this facility use at least one of these dose optimization techniques: automated exposure control; mA and/or kV adjustment per patient size (includes targeted exams where dose is matched to clinical indication); or iterative reconstruction. COMPARISON: CT chest abd pel wo con 10/15/2021 4:30 PM RADIATION DOSE METRICS: Total DLP (mGy-cm): 505.98 FINDINGS: Trachea: Tracheobronchial tree tortuosity and calcifications are seen. Lungs: There are small lung volumes. Mild right upper lobe and [place]ap-uf-uuzihoky lingular ground-glass opacities and small regions of patchy consolidation are seen. Moderate to severe right lower lobe and moderate left lower lobe regions of consolidation are seen with some ground-glass opacities. These findings are suggestive of multifocal pneumonia. Pleural spaces: No pneumothorax. No pleural effusion. Heart: There is etbq-rn-clmgrsnr cardiomegaly. Mild coronary arterial atherosclerotic vascular calcifications are seen without change. No pericardial effusion. Lymph nodes: No enlarged lymph nodes visualized on non-contrast imaging. Vasculature: No aortic aneurysm. Bones/joints: Unchanged kyphotic curvature of the thoracic spine is seen with unchanged T7, T8 and T11 vertebral body compression fractures. There is 60% T7, 25% T8 and 20% T11 vertebral body height loss. Small degenerative osteophytes are seen throughout the thoracic spine. Medium-sized superior endplate Schmorl's node is seen at the T12 level. There is osteopenia. Soft tissues: Unremarkable. PROCEDURE INFORMATION: Exam: CT Abdomen And Pelvis Without Contrast Exam date and time: 06/02/2022 5:43 AM Age: 66 years old Clinical indication: Other: Sepsis, shock TECHNIQUE: Imaging protocol: Computed tomography of the abdomen and pelvis without contrast. Radiation optimization: All CT scans at this facility use at least one of these dose optimization techniques: automated exposure control; mA and/or kV adjustment per patient size (includes targeted exams where dose is matched to clinical indication); or iterative reconstruction. COMPARISON: CT chest abd pel wo con 10/15/2021 4:30 PM RADIATION DOSE METRICS: Total DLP (mGy-cm): 505.98 FINDINGS: Tubes, catheters and devices: Left femoral central venous catheter is seen with tip in the left upper common iliac vein. Liver: The non-contrast enhanced liver appears unremarkable. Gallbladder and bile ducts: Some motion artifact is seen in the region of the gallbladder which limits assessment. No definite calcified stones. No biliary ductal dilatation. Pancreas: Atrophic changes of the pancreas are seen. No definite abnormality seen. Spleen: The non-contrast enhanced spleen appears unremarkable. No splenomegaly. Adrenal glands: Unremarkable non-contrast CT appearance of the adrenals. No definte masses. Kidneys and ureters: The kidneys appear unremarkable, although motion artifact limits assessment. No hydronephrosis or ureterectasis. Stomach and bowel: The non-contrast opacified stomach is not well distended with relative gastric fold prominence. Assessment is limited. Some motion artifact is seen, which limits assessment. Unchanged small hiatal hernia is seen. The noncontrast opacified small bowel loops appear unremarkable. The noncontrast opacified loops of colon show mild constipation.The lack of orally administered contrast material limits assessment. Appendix: No appendix is specifically identified. No CT evidence of fluid collections or inflammatory stranding adjacent to the cecum. Intraperitoneal space: No free air. No significant fluid collection. Vasculature: No abdominal aortic aneurysm. Mild atherosclerotic vascular calcifications. Lymph nodes: No enlarged lymph nodes. Urinary bladder: Vallecillo catheter is seen in the bladder. The bladder is not well distended, with relative bladder wall prominence. Reproductive: Unremarkable as visualized. Bones/joints: No acute osseous abnormality seen. Unchanged mild levoconvex scoliosis of the mid lumbar spine is seen. Unchanged superior endplate compression fractures of the L1, L2, L4 and L5 vertebral bodies are seen, most prominent at the L1 level. Degenerative facet disease changes are seen throughout the lumbar spine, severe in the lower lumbar region. Jywk-fc-ztzkxhdu bilateral hip, symphysis pubis and sacroiliac joint degenerative changes are seen. There is osteopenia. Soft tissues: Unremarkable. CT/[place] [id number] IMPRESSION: 1. Small lung volumes. Mild right upper lobe and bdkp-lm-qccungnt lingular ground-glass opacities and small regions of patchy consolidation. Moderate to severe right lower lobe and moderate left lower lobe regions of consolidation with some ground-glass opacities. These findings are suggestive of multifocal pneumonia. Recommend follow-up until complete resolution. 2. Iyys-bo-cwcbkkmk cardiomegaly. 3. Chronic changes, as noted above. IMPRESSION: 1. No acute abnormality seen on the non-contrast abdominal and pelvic CT. No abdominal or pelvic fluid collections or abscess. 2. Chronic changes, as noted above.
--- NOTE | 2022-06-02 05:47 | CTR_ITS ---
PROCEDURE INFORMATION: Exam: CT Head Without Contrast Exam date and time: 06/02/2022 5:54 AM Age: 66 years old Clinical indication: Other: Blown pupil TECHNIQUE: Imaging protocol: Computed tomography of the head without contrast. Radiation optimization: All CT scans at this facility use at least one of these dose optimization techniques: automated exposure control; mA and/or kV adjustment per patient size (includes targeted exams where dose is matched to clinical indication); or iterative reconstruction. COMPARISON: CT head wo con* [id number] 05/02/2022 7:04 PM RADIATION DOSE METRICS: Total DLP (mGy-cm): 1238.88 FINDINGS: Brain: There is prominent cerebellar atrophy and moderate left and mild right cerebellar atrophy. There is a large area of encephalomalacia in the left temporal and frontal lobes with porencephalic dilatation of left lateral ventricle. There is no evidence of acute loss of herron-white differentiation or acute infarct. There is no acute hemorrhage. Basilar cisterns are patent and no evidence of transtentorial herniation. Cerebral ventricles: See Brain finding. Paranasal sinuses: Visualized sinuses are unremarkable. No fluid levels. Mastoid air cells: No significant mastoid effusion. Bones/joints: No acute fracture. Soft tissues: Unremarkable as visualized. CT/CT head wo con* [id number] IMPRESSION: Stable chronic changes of brain as described.
[2022-06-02 05:50] LABS: Basophils # 0.1 10^3/uL (0.0-0.1); Basophils % 0.3 %; Hematocrit 37.5 % (37.0-47.0); Hemoglobin 11.7 g/dL (11.5-15.3); Lymphocytes # 1.1 10^3/uL (0.8-4.8); Lymphocytes % 5.4 %; Mean Corpuscular HGB Conc 31.2 g/dL (30.0-36.0); Mean Corpuscular Hemoglobin 31.2 pg (28.0-34.0); Monocytes # 0.5 10^3/uL (0.2-0.9); Monocytes % 2.2 %; Neutrophils # 19.09 10^3/uL (1.8-7.7); Neutrophils % 91.6 %; Nucleated Red Blood Cells % 0 %; Platelet Count 282 10^3/cmm (130-400); Red Blood Count 3.75 10^6/uL (4.1-5.3); Red Cell Distribution Width 12.9 % (12.1-15.1); White Blood Count 20.9 10^3/uL (4.0-10.0)
[2022-06-02 05:59] LABS: Glucose Point of Care 259 mg/dL (70-110)
--- NOTE | 2022-06-02 06:00 | USCV_ITS ---
Brian Dasia Age: 66 Gender: F : 1955 Exam Date: 06/02/2022 09:58 Ordering Phys: Jaskaran Urias MD Technologist: BILL Exam Location: [facility] [place] Indication: SOB cardiomegaly BP: 94 / 65 HR: 63 Rhythm: Sinus Technical Quality: Adequate MEASUREMENTS (Male / Female) Normal Values 2D ECHO LV Diastolic Diameter PLAX 3.5 cm 4.2 - 5.9 / 3.9 - 5.3 cm LV Systolic Diameter PLAX 2.6 cm IVS Diastolic Thickness 0.8 cm 0.6 - 1.0 / 0.6 - 0.9 cm IVS Systolic Thickness 1.0 cm LVPW Diastolic Thickness 0.8 cm 0.6 - 1.0 / 0.6 - 0.9 cm LVPW Systolic Thickness 0.9 cm LVOT Diameter 2.0 cm LV Ejection Fraction 2D Teich 49.3 % LV Ejection Fraction MOD 2C 71.7 % LV Ejection Fraction 2C AL 71.0 % LA Diameter 2.5 cm M-MODE Aortic Annulus Diameter 2.8 cm LA Ao Ratio MM 0.9 MV E Point Septal Separation 0.1 cm DOPPLER AV Peak Velocity 131.0 cm/s LVOT Peak Velocity 106.0 cm/s AV Area Cont Eq vti 2.5 cm squared AV Area Cont Eq pk 2.6 cm squared MV Area PHT 3.6 cm squared Mitral E to A Ratio 0.9 MV E' Velocity 52.0 cm/s Mitral E to MV E' Ratio 11.1 Mitral E to LV E' Lateral Ratio 9.7 Mitral E to LV E' Septal Ratio 13.1 TR Peak Velocity 189.0 cm/s TR Peak Gradient 14.3 mmHg TV Peak E Velocity 53.0 cm/s Right Atrial Pressure 6.0 mmHg Pulmonary Artery Systolic Pressu 20.3 mmHg PV Peak Velocity 67.0 cm/s FINDINGS Left Ventricle Normal left ventricular size and systolic function, EF 63 %. No regional wall motion abnormalities. Grade I/IV diastolic dysfunction (abnormal relaxation filling pattern), normal to mildly elevated filling pressures. Right Ventricle The right ventricle is normal in size and function. Right Atrium The right atrium is normal in size. Left Atrium Mildly increased left atrial size. Mitral Valve Thickened mitral valve. Mild mitral annular calcification. Trace mitral valve regurgitation. Aortic Valve Thickened aortic valve. Tricuspid Valve Mild tricuspid valve regurgitation. Pulmonic Valve No gross abnormalities noted Pericardium Normal pericardium without effusion. Aorta Normal ascending aorta dimension. IVC The inferior vena cava appears normal. CONCLUSIONS Normal left ventricular size and systolic function, EF 63 %. No regional wall motion abnormalities. Grade I/IV diastolic dysfunction (abnormal relaxation filling pattern), normal to mildly elevated filling pressures. Mildly increased left atrial size. Thickened mitral valve. Mild mitral annular calcification. Trace mitral valve regurgitation. Thickened aortic valve. Mild tricuspid valve regurgitation. Estimated pulmonary artery peak systolic pressure of 20 mmHg. There is no pericardial effusion. There are no intracardiac masses. No similar previous studies are available for comparison Dr Florida Rivera MD FAC (Electronically Signed) Final Date: 02 June 2022 21:10 S
[2022-06-02 06:25] LABS: Alanine Aminotransferase 36 U/L (0-33); Albumin Level 2.9 g/dL (3.5-5.2); Alkaline Phosphatase 85 U/L (35-105); Blood Urea Nitrogen 25 mg/dL (8-23); Calcium 7.8 mg/dL (8.5-10.5); Carbon Dioxide 22 mmol/L (22-29); Chloride 106 mmol/L (98-107); Globulin 2.9 g/dL (1.3-4.6); Glomerular Filtration Rate 71.5 mL/min (90-130); Glucose 244 mg/dL (65-115); Osmolality Calculated 296 mOsm/kg (285-295); Sodium 137 mmol/L (136-145); Total Bilirubin 0.3 mg/dL (0.15-1.2); Total Protein 5.8 g/dL (6.6-8.7)
[2022-06-02 06:29] LABS: Anion Gap 13.7 (5-19); Aspartate Amino Transferase 26 U/L (0-32); Potassium 4.7 mmol/L (3.5-5.1)
[2022-06-02] MEDS: vancomycin 750 MG in sodium chloride 0.9% 250 ML 250 MG IV (06:29)
[2022-06-02] MEDS: FUROsemide 10 mg/mL SDV 2mL 20 MG IVP (06:29)
[2022-06-02 06:34] LABS: Cortisol Random 36.88 ug/dL (2.47-19.5)
[2022-06-02 07:59] LABS: Glucose Point of Care 212 mg/dL (70-110)
[2022-06-02] MEDS: linezolid premix 600 MG/300 ML PREMIX 300 MG IV ×2 (09:14→21:55)
[2022-06-02] MEDS: hydrocortisone 100 mg/2 mL SDV 50 MG IVP ×2 (09:23→21:49)
[2022-06-02] MEDS: [UNRECOGNIZED DRUG - REMARK] 104 MG IV ×2 (12:15→23:28)
--- NOTE | 2022-06-02 14:35 | PM.PN ---
Subjective Subjective: Patient overnight became hypotensive, took an extent that rapid response had to be called, and she had to be shifted to ICU, she quickly went on high-dose of multiple pressures, apparently she was also hypoxic, she was altered, repeat lactic acid went up, troponin trend not very impressive. Patient received 1 L normal saline bolus, antibiotic coverage was broadened to vancomycin. Medications: Medication Review Details: Generic Name Dose Route Start Last Admin Trade Name Olivier PRN Reason Stop Dose Admin Albuterol/Ipratrop ium 3 ml 06/01/22 20:00 06/02/22 13:40 Ipratropium-Albu terol 3 Ml Neb INHALATION 3 ml Q6H.RESP MICHELLE Administration Ascorbic Acid 2,000 mg 06/02/22 09:00 06/02/22 08:17 Ascorbic Acid 50 0 Mg Tablet PO Not Given DAILY MICHELLE Cyanocobalamin 500 mcg 06/02/22 09:00 06/02/22 08:17 Cyanocobalamin 1 ,000 Mcg Tablet PO Not Given DAILY MICHELLE Famotidine 20 mg 06/02/22 09:00 06/02/22 08:17 Famotidine 20 Mg Tablet PO Not Given BID MICHELLE Fluoxetine HCl 20 mg 06/02/22 09:00 06/02/22 08:17 Fluoxetine 20 Mg Capsule PO Not Given DAILY MICHELLE Folic Acid 1 mg 06/02/22 09:00 06/02/22 08:18 Folic Acid 1 Mg Tablet PO Not Given DAILY MICHELLE Hydrocortisone Sod ium Succinate 50 mg 06/01/22 20:30 06/02/22 09:23 Hydrocortisone 1 00 Mg/2 Ml Sdv IVP 50 mg Q12H MICHELLE Administration Piperacillin Sod/T azobactam 50 mls @ 12.5 mls /hr 06/01/22 19:30 06/02/22 12:14 Sod 3.375 gm/ So dium Chloride IV 12.5 mls/hr Q8H MICHELLE Administration Protocol Sodium Chloride 1,000 mls @ 50 ml s/hr 06/01/22 20:30 06/02/22 02:05 Sodium Chloride 0.9% IV 50 mls/hr .Q20H MICHELLE Infusion Vasopressin 40 uni t/ Sodium 40 mls @ 0.03 mls /min 06/01/22 23:45 06/02/22 09:30 Chloride IV 0 mls/min CONT MICHELLE Infusion Norepinephrine Bit artrate 4 mg 254 mls @ 0 mls/h r 06/02/22 00:00 06/02/22 08:17 / Dextrose IV 2 mcg/min .Q0M MICHELLE 7.62 mls/hr Titration Protocol Per Protocol Linezolid 600 mg in 300 mls @ 300 mls/hr 06/02/22 08:45 06/02/22 10:37 Zyvox Premix IV Infused Q12H MICHELLE Infusion Protocol Levetiracetam 500 mg/ Sodium 105 mls @ 420 mls /hr 06/02/22 10:15 06/02/22 10:52 Chloride IV Infused Q12H MICHELLE Infusion Lacosamide 150 mg/ Sodium 65 mls @ 120 mls/ hr 06/02/22 10:30 06/02/22 10:38 Chloride IV 120 mls/hr Q12H MICHELLE Administration Phenytoin 50 mg/ S odium 21 mls @ 104 mls/ hr 06/02/22 11:15 06/02/22 12:15 Chloride/ IV Misce llaneous IV 104 mls/hr Supplies Q12H MICHELLE Administration Lactobacillus Acid ophilus 1 tab 06/02/22 09:00 06/02/22 08:18 Lactobacillus 1 Tablet PO Not Given DAILY MICHELLE Montelukast Sodium 10 mg 06/02/22 09:00 06/02/22 08:18 Montelukast Sodi um 10 Mg Tablet PO Not Given DAILY MICHELLE Multivitamins Ther apeutic 1 tab 06/02/22 09:00 06/02/22 08:18 Multivitamin The rapeutic Tablet PO Not Given DAILY MICHELLE Non-Formulary Medi cation 50 mg 06/02/22 09:00 06/02/22 08:18 Phenytoin [Silvano tin Infatabs] PO Not Given BID MICHELLE Non-Formulary Medi cation 1 tab 06/02/22 09:00 06/02/22 08:18 Vitamin B Comple x PO Not Given DAILY MICHELLE Pantoprazole Sodiu m 40 mg 06/02/22 09:00 06/02/22 08:[address] 40 Mg Tablet PO Not Given DAILY MICHELLE Polyethylene Glyco l 8.5 gm 06/02/22 09:00 06/02/22 08:18 Polyethylene Gly col 3350 Pkt 17 Gm PO Not Given DAILY MICHELLE Prednisone 2.5 mg 06/02/22 09:00 06/02/22 08:18 Prednisone 5 Mg Tablet PO Not Given DAILY [facility] Tamsulosin HCl 0.4 mg 06/02/22 09:00 06/02/22 08:18 Tamsulosin 0.4 M g Capsule PO Not Given DAILY [facility] Zonisamide 100 mg 06/02/22 09:00 06/02/22 08:19 Zonisamide 100 M g Capsule PO Not Given BID MICHELLE Vitals/I&O/Wt Last Vital Signs Temp 96.1 F L 06/02/22 08:00 Pulse 69 06/02/22 13:43 Resp 18 06/02/22 13:35 BP 77/49 06/02/22 11:00 Pulse Ox 92 06/02/22 13:35 O2 Del Method 06/02/22 13:35 O2 Flow Rate 2 06/02/22 03:53 06/01/22 06/02/22 06/02/22 22:59 06:59 14:59 Intake Total 250 / 250 1939.206 / 2189.206 745.616 / 745.616 Output Total 420 / 420 650 / 650 Balance 250 / 250 1519.206 / 1769.206 95.616 / 95.616 Weight last 48 hrs Weight 53.977 kg Physical Exam Resp: COMMON NORMALS: clear to auscultation bilaterally EFFORT & INSPECTION: Yes symmetric chest movement AUSCULTATION: clear to auscultation bilaterally Cardio: COMMON NORMALS: regular rate, regular rhythm, S1 normal heart sound present, S2 normal heart sound present, No gallops present (Cardio), No murmurs present (Cardio), No rub (Cardio) and Peripheral pulses 2+ throughout RATE: regular rate RHYTHM: regular rhythm HEART SOUNDS: S1 normal heart sound present and S2 normal heart sound present PERIPHERAL PULSES: Peripheral pulses 2+ throughout GI: COMMON NORMALS: Normal to inspection, nondistended, normoactive bowel sounds present, Soft to palpation, non-tender, No hepatosplenomegaly present and no masses AUSCULTATION: Yes normoactive bowel sounds PALPATION: Yes Soft to palpation and Yes No hepatosplenomegaly present RECTAL EXAM: deferred Extremity: COMMON NORMALS: no clubbing, cyanosis or edema and no pedal edema Urinary Catheter Management: Vallecillo: Cath Placed During This Visit: yes Reason for Continuing Indwelling Catheter: Accurate Measurement of Urinary Output in Critically Ill Patients Urinary Catheter Date of Insertion: 06/02/22 Urinary Catheter Time of Insertion: 04:13 Data 06/02/22 05:28 06/02/22 05:28 Micro: Microbiology 06/01/22 13:38 Urine Culture - Preliminary Urine,Clean Catch Gram Negative Rods 06/01/22 18:37 Blood Culture - Preliminary Blood SPECIMEN COLLECTED 06/01/22 18:42 Blood Culture - Preliminary Blood SPECIMEN COLLECTED A&P Assessment and plan (1) Pneumonia: (2) UTI (urinary tract infection): (3) Seizure: (4) Hypoxia: (5) Rheumatoid arthritis: Plan 66 year old female with PMH of TBI, Seizure disorder,long-term care facility, delayed development,partial lobectomy of frontal, temporal and parietal lobe, s/p [place] neuro stimulator placement, UTIs, was brought in with c/o cough,as well as desaturating to 80s at the facility today, she was also less active today as per her palliative care nurse practitioner,usually she is more active and chirpy.While at the time of my interaction with her she was not complaining of any pain,she is currently requiring 4 Ls oxygen to maintain decent saturation, usually she does not use oxygen,palliative care nurse practitioner is complaining of long standing non productive cough. Assessment : Septic shock secondary to pneumonia and UTI: AMS 2/2 UTI, PNA ( Possible Aspiration PNA ) Acute Hypoxia 2/2 PNA UTI H/O Seizure disorder Plan : CT head without contrast: No acute finding Xray chest : Minimal patchy opacity in the left lower lobe which could represent atelectasis and/or pneumonia.Small left pleural effusion.Cardiomegaly. CT chest abdomen and pelvis: CT chest suggestive of multifocal pneumonia, CT abdomen and pelvis: No acute findings. 2 D echo : Blood culture : Urine culture :GNR Procalcitonin: 2.71 Random cortsiol : 34 Troponin trend: 37-26-22 On zosyn : As well as Zyvox. Has known allergy to vancomycin Currently she is on Levophed, fortunately vasopressin has been titrated off, so far Levophed requirement is coming down. Ideally patient should need A-line for accurate blood pressure measurement. Given concerning xray findings will be cautious with fluids.Will prefer gentle I.V Hydration. On hydrocortisone Continue home seizure as well as other medications. Will keep her npo overnight,keeping risk of aspiration in mind, will get Speech evaluation in am. Duo nebs, supplemental oxygen as needed. Code Status :AND DVT PPX: On lovenox. Attestations Medical Necessity Statement*: Patient is still in hospital for management of septic shock. Time Spent in Patient Care: Greater than 35 minutes (>than 50% of time spent in counselling and/or direct pt care on unit). Critical Care Time: The high probability of a clinically significant, sudden or life threatening deterioration of the patient's [] system(s) required my full and direct attention, intervention and personal management. The critical care time is as shown. This time is in addition to time spent performing any reported procedures but includes the following: [x] Data and vital sign review and interpretation [x] Patient assessment, examination and intervention [x] Documentation [x] Medication orders and management The high probability of a clinically significant, sudden or life threatening deterioration of the patient's [] system(s) required my full and direct attention, intervention and personal management. The critical care time is as shown. This time is in addition to time spent performing any reported procedures but includes the following: [x] Data and vital sign review and interpretation [x] Patient assessment, examination and intervention [x] Documentation [x] Medication orders and management Critical Care Time (min): 60 Coding Level of Care Code Acute Hand Worker for Chg Fwd Exam Expanded Problem Focused Diagnoses Pneumonia J18.9 UTI (urinary tract infection) N39.0 Seizure R56.9 Hypoxia R09.02 Rheumatoid arthritis M06.9
[2022-06-02] MEDS: albumin 37.5 GM/150 ML VIAL IV (15:38)
[2022-06-02] MEDS: fluconazole premix 100 MG in empty flexible container 1 EACH 50 MG IV (15:44)
[2022-06-02 17:59] LABS: Glucose Point of Care 132 mg/dL (70-110)
--- NOTE | 2022-06-02 18:41 | PC.NURSE ---
Shift SUmmary: Uneventful. Patient has rested in bed throughout the day. Titrated off of vasopressin, but stil requiring levophed, usually between 2 to 6 mcg/min. Mental status has slightly improved, originally unresponsive, roused by touch and will say name. Continues to be lethargic. PO meds held due to inability to swallow due to mental status, Physician is aware and some medications have been changed to IV form if possible.
[2022-06-02] MEDS: sodium chloride 0.9% 1,000 ML 50 ML IV (21:45)
[2022-06-02] MEDS: enoxaparin 40 mg/0.4 mL Syringe SUBCUT (21:46)
[2022-06-02] MEDS: ondansetron 2 mg/ML SDV 2 mL 4 MG IVP (23:17)
[2022-06-03] VITALS (56 sets, daily range): BP systolic 100–138; BP diastolic 58–88; PULSE 67–84; RESP 14–28; TEMP 36.7; O2SAT 84–100
[2022-06-03] MEDS: ipratropium-albuterol 3 mL Neb INHALATION ×4 (03:05→20:07)
[2022-06-03] MEDS: piperacillin-tazobactam 3.375 GM in sodium chloride 0.9% (plus) 50 ML IV ×3 (04:33→18:27)
[2022-06-03 04:53] LABS: Basophils % 0.1 %; Eosinophils % 0.4 %; Hematocrit 30.3 % (37.0-47.0); Hemoglobin 9.4 g/dL (11.5-15.3); Lymphocytes % 13.2 %; Mean Corpuscular Hemoglobin 30.7 pg (28.0-34.0); Mean Platelet Volume 9.8 fL (7.4-10.4); Monocytes # 0.2 10^3/uL (0.2-0.9); Monocytes % 3.1 %; Neutrophils # 6.38 10^3/uL (1.8-7.7); Neutrophils % 82.7 %; Nucleated Red Blood Cells % 0 %; Platelet Count 180 10^3/cmm (130-400); Red Blood Count 3.06 10^6/uL (4.1-5.3); Red Cell Distribution Width 13.1 % (12.1-15.1); White Blood Count 7.7 10^3/uL (4.0-10.0)
[2022-06-03 05:17] LABS: Lactate (Lactic Acid level) 1.1 mmol/L (0.5-2.2)
[2022-06-03 05:20] LABS: Alanine Aminotransferase 36 U/L (0-33); Albumin Level 3.3 g/dL (3.5-5.2); Alkaline Phosphatase 67 U/L (35-105); Anion Gap 12.6 (5-19); Aspartate Amino Transferase 31 U/L (0-32); Blood Urea Nitrogen 14 mg/dL (8-23); Calcium 7.7 mg/dL (8.5-10.5); Carbon Dioxide 24 mmol/L (22-29); Chloride 105 mmol/L (98-107); Globulin 2.4 g/dL (1.3-4.6); Glomerular Filtration Rate 123.1 mL/min (90-130); Glucose 130 mg/dL (65-115); Osmolality Calculated 288 mOsm/kg (285-295); Potassium 3.6 mmol/L (3.5-5.1); Sodium 138 mmol/L (136-145); Total Bilirubin 0.2 mg/dL (0.15-1.2); Total Protein 5.7 g/dL (6.6-8.7)
[2022-06-03 05:21] LABS: Phenytoin Dilantin 9.8 ug/mL (10-20)
[2022-06-03 05:25] LABS: Procalcitonin 1.56 ng/mL (0-0.5)
--- NOTE | 2022-06-03 06:45 | PM.PN ---
Subjective Subjective: Patient was seen and examined this morning, overall she is doing much better much alert awake oriented, Was able to answer a few questions, has been afebrile, off pressors, maintaining a decent MAP. Requiring minimal supplemental oxygen. Medications: Medication Review Details: Generic Name Dose Route Start Last Admin Trade Name Olivier PRN Reason Stop Dose Admin Albuterol/Ipratrop ium 3 ml 06/01/22 20:00 06/03/22 03:05 Ipratropium-Albu terol 3 Ml Neb INHALATION 3 ml Q6H.RESP MICHELLE Administration Ascorbic Acid 2,000 mg 06/02/22 09:00 06/02/22 08:17 Ascorbic Acid 50 0 Mg Tablet PO Not Given DAILY MICHELLE Cyanocobalamin 500 mcg 06/02/22 09:00 06/02/22 08:17 Cyanocobalamin 1 ,000 Mcg Tablet PO Not Given DAILY MICHELLE Enoxaparin Sodium 40 mg 06/02/22 20:00 06/02/22 21:46 Enoxaparin 40 Mg /0.4 Ml Syringe SUBCUT 40 mg Q24H MICHELLE Administration Famotidine 20 mg 06/02/22 09:00 06/02/22 18:07 Famotidine 20 Mg Tablet PO Not Given BID MICHELLE Fluoxetine HCl 20 mg 06/02/22 09:00 06/02/22 08:17 Fluoxetine 20 Mg Capsule PO Not Given DAILY MICHELLE Folic Acid 1 mg 06/02/22 09:00 06/02/22 08:18 Folic Acid 1 Mg Tablet PO Not Given DAILY MICHELLE Hydrocortisone Sod ium Succinate 50 mg 06/01/22 20:30 06/02/22 21:49 Hydrocortisone 1 00 Mg/2 Ml Sdv IVP 50 mg Q12H MICHELLE Administration Piperacillin Sod/T azobactam 50 mls @ 12.5 mls /hr 06/01/22 19:30 06/03/22 04:33 Sod 3.375 gm/ So dium Chloride IV 12.5 mls/hr Q8H MICHELLE Administration Protocol Sodium Chloride 1,000 mls @ 50 ml s/hr 06/01/22 20:30 06/02/22 21:45 Sodium Chloride 0.9% IV 50 mls/hr .Q20H MICHELLE Administration Vasopressin 40 uni t/ Sodium 40 mls @ 0.03 mls /min 06/01/22 23:45 06/03/22 01:47 Chloride IV Not Given CONT MICHELLE Norepinephrine Bit artrate 4 mg 254 mls @ 0 mls/h r 06/02/22 00:00 06/03/22 05:30 / Dextrose IV 0 mcg/min .Q0M MICHELLE 0 mls/hr Titration Protocol Per Protocol Linezolid 600 mg in 300 mls @ 300 mls/hr 06/02/22 08:45 06/02/22 22:55 Zyvox Premix IV Infused Q12H MICHELLE Infusion Protocol Levetiracetam 500 mg/ Sodium 105 mls @ 420 mls /hr 06/02/22 10:15 06/02/22 23:25 Chloride IV Infused Q12H MICHELLE Infusion Lacosamide 150 mg/ Sodium 65 mls @ 120 mls/ hr 06/02/22 10:30 06/03/22 00:00 Chloride IV Infused Q12H MICHELLE Infusion Phenytoin 50 mg/ S odium 21 mls @ 104 mls/ hr 06/02/22 11:15 06/03/22 00:00 Chloride/ IV Misce llaneous IV Infused Supplies Q12H MICHELLE Infusion Fluconazole 100 mg / N/A 50 mls @ 50 mls/h r 06/02/22 15:30 06/02/22 18:44 IV Infused Q24H MICHELLE Infusion Lactobacillus Acid ophilus 1 tab 06/02/22 09:00 06/02/22 08:18 Lactobacillus 1 Tablet PO Not Given DAILY MICHELLE Montelukast Sodium 10 mg 06/02/22 09:00 06/02/22 08:18 Montelukast Sodi um 10 Mg Tablet PO Not Given DAILY MICHELLE Multivitamins Ther apeutic 1 tab 06/02/22 09:00 06/02/22 08:18 Multivitamin The rapeutic Tablet PO Not Given DAILY MICHELLE Non-Formulary Medi cation 50 mg 06/02/22 09:00 06/02/22 17:13 Phenytoin [Silvano tin Infatabs] PO Not Given BID MICHELLE Non-Formulary Medi cation 1 tab 06/02/22 09:00 06/02/22 08:18 Vitamin B Comple x PO Not Given DAILY MICHELLE Ondansetron HCl 4 mg 06/01/22 17:16 06/02/22 23:17 Ondansetron 2 Mg /Ml Sdv 2 Ml IVP 4 mg Q6H PRN Administration NAUSEA AND VOMITI NG Pantoprazole Sodiu m 40 mg 06/02/22 09:00 06/02/22 08:[address] 40 Mg Tablet PO Not Given DAILY [facility] Polyethylene Glyco l 8.5 gm 06/02/22 09:00 06/02/22 08:18 Polyethylene Gly col 3350 Pkt 17 Gm PO Not Given DAILY [facility] Prednisone 2.5 mg 06/02/22 09:00 06/02/22 08:18 Prednisone 5 Mg Tablet PO Not Given DAILY [facility] Tamsulosin HCl 0.4 mg 06/02/22 09:00 06/02/22 08:18 Tamsulosin 0.4 M g Capsule PO Not Given DAILY [facility] Zonisamide 100 mg 06/02/22 09:00 06/02/22 18:07 Zonisamide 100 M g Capsule PO Not Given BID [facility] Vitals/I&O/Wt Last Vital Signs Temp 98.0 F 06/03/22 00:30 Pulse 79 06/03/22 06:30 Resp 18 06/03/22 06:30 BP 121/71 06/03/22 06:30 Pulse Ox 91 06/03/22 06:30 O2 Del Method 06/03/22 03:05 O2 Flow Rate 2 06/03/22 03:05 06/02/22 06/02/22 06/03/22 14:59 22:59 06:59 Intake Total 745.616 / 465.198 4933.610 / 2422.226 421.975 / 2844.201 Output Total 900 / 900 100 / 1000 450 / 1450 Balance -154.384 / -147.539 0776.610 / 1422.226 -28.025 / 1394.201 Weight last 48 hrs Weight 53.977 kg Physical Exam Resp: COMMON NORMALS: clear to auscultation bilaterally EFFORT & INSPECTION: Yes symmetric chest movement AUSCULTATION: clear to auscultation bilaterally Cardio: COMMON NORMALS: regular rate, regular rhythm, S1 normal heart sound present, S2 normal heart sound present, No gallops present (Cardio), No murmurs present (Cardio), No rub (Cardio) and Peripheral pulses 2+ throughout RATE: regular rate RHYTHM: regular rhythm HEART SOUNDS: S1 normal heart sound present and S2 normal heart sound present PERIPHERAL PULSES: Peripheral pulses 2+ throughout GI: COMMON NORMALS: Normal to inspection, nondistended, normoactive bowel sounds present, Soft to palpation, non-tender, No hepatosplenomegaly present and no masses AUSCULTATION: Yes normoactive bowel sounds PALPATION: Yes Soft to palpation and Yes No hepatosplenomegaly present RECTAL EXAM: deferred Extremity: COMMON NORMALS: no clubbing, cyanosis or edema and no pedal edema Urinary Catheter Management: Vallecillo: Cath Placed During This Visit: yes Reason for Continuing Indwelling Catheter: Accurate Measurement of Urinary Output in Critically Ill Patients Urinary Catheter Date of Insertion: 06/02/22 Urinary Catheter Time of Insertion: 04:13 Data 06/03/22 04:25 06/03/22 04:25 Micro: Microbiology 06/01/22 18:37 Blood Culture - Preliminary Blood NEGATIVE TO DATE 06/01/22 18:42 Blood Culture - Preliminary Blood NEGATIVE TO DATE 06/01/22 13:38 Urine Culture - Preliminary Urine,Clean Catch Gram Negative Rods A&P Assessment and plan (1) Pneumonia: (2) UTI (urinary tract infection): (3) Seizure: (4) Hypoxia: (5) Rheumatoid arthritis: Plan 66 year old female with PMH of TBI, Seizure disorder,long-term care facility, delayed development,partial lobectomy of frontal, temporal and parietal lobe, s/p [place] neuro stimulator placement, UTIs, was brought in with c/o cough,as well as desaturating to 80s at the facility today, she was also less active today as per her physician assistant primary care,usually she is more active and chirpy.While at the time of my interaction with her she was not complaining of any pain,she is currently requiring 4 Ls oxygen to maintain decent saturation, usually she does not use oxygen,physician assistant primary care is complaining of long standing non productive cough. Assessment : Septic shock secondary to pneumonia and UTI: AMS 2/2 UTI, PNA ( Possible Aspiration PNA ) Acute Hypoxia 2/2 PNA UTI H/O Seizure disorder Plan : CT head without contrast: No acute finding Xray chest : Minimal patchy opacity in the left lower lobe which could represent atelectasis and/or pneumonia.Small left pleural effusion.Cardiomegaly. CT chest abdomen and pelvis: CT chest suggestive of multifocal pneumonia, CT abdomen and pelvis: No acute findings. 2 D echo : Normal LV size and systolic function with EF of 63%, no RWMA, grade 1 diastolic dysfunction, no gross valvular abnormality, no pericardial effusion no pulmonary hypertension. Blood culture :NTD Urine culture : Pseudomonas Procalcitonin: 2.71 Random cortsiol : 34 Troponin trend: 37-22 On zosyn : As well as Zyvox. Has known allergy to vancomycin Was on vasopressors has been titrated off. Ideally patient should need A-line for accurate blood pressure measurement. Given concerning xray findings will be cautious with fluids.Will prefer gentle I.V Hydration. On hydrocortisone Continue home seizure as well as other medications. Will keep her npo overnight,keeping risk of aspiration in mind, will get Speech evaluation in am. Duo nebs, supplemental oxygen as needed. Code Status :AND DVT PPX: On lovenox. Attestations Medical Necessity Statement*: Patient is to be in hospital management for sepsis. Time Spent in Patient Care: Greater than 35 minutes (>than 50% of time spent in counselling and/or direct pt care on unit). Critical Care Time: The high probability of a clinically significant, sudden or life threatening deterioration of the patient's [] system(s) required my full and direct attention, intervention and personal management. The critical care time is as shown. This time is in addition to time spent performing any reported procedures but includes the following: [x] Data and vital sign review and interpretation [x] Patient assessment, examination and intervention [x] Documentation [x] Medication orders and management Critical Care Time (min): 25 Coding Level of Care Code Acute Role Player for [facility] Fwd Exam Detailed Diagnoses Pneumonia J18.9 UTI (urinary tract infection) N39.0 Seizure R56.9 Hypoxia R09.02 Rheumatoid arthritis M06.9
[2022-06-03] MEDS: linezolid premix 600 MG/300 ML PREMIX 300 MG IV ×2 (08:22→21:00)
[2022-06-03] MEDS: hydrocortisone 100 mg/2 mL SDV 50 MG IVP ×2 (08:22→21:03)
[2022-06-03] MEDS: [UNRECOGNIZED DRUG - REMARK] 104 MG IV ×2 (10:42→22:16)
[2022-06-03] MEDS: fluconazole premix 100 MG in empty flexible container 1 EACH 50 MG IV (15:28)
[2022-06-03] MEDS: famotidine 20 mg Tablet PO (17:04)
[2022-06-03] MEDS: zonisamide 100 MG Capsule PO (17:04)
--- NOTE | 2022-06-03 18:19 | PC.NURSE ---
Shift Summary: patient AO x3 throughout shift, able to safely swallow meds, no c/o uneventful shift
[2022-06-03] MEDS: enoxaparin 40 mg/0.4 mL Syringe SUBCUT (20:53)
[2022-06-03] MEDS: sodium chloride 0.9% 1,000 ML 50 ML IV (21:10)
[2022-06-04] VITALS (29 sets, daily range): BP systolic 124–169; BP diastolic 72–107; PULSE 65–82; RESP 17–37; TEMP 36.6–36.9; O2SAT 90–100
[2022-06-04 03:17] LABS: Basophils % 0.1 %; Eosinophils # 0.1 10^3/uL (0.0-0.8); Hematocrit 30.7 % (37.0-47.0); Hemoglobin 9.5 g/dL (11.5-15.3); Lymphocytes # 0.9 10^3/uL (0.8-4.8); Lymphocytes % 12.7 %; Mean Corpuscular HGB Conc 30.9 g/dL (30.0-36.0); Mean Corpuscular Hemoglobin 31.3 pg (28.0-34.0); Mean Platelet Volume 10.2 fL (7.4-10.4); Monocytes # 0.3 10^3/uL (0.2-0.9); Monocytes % 3.7 %; Neutrophils # 5.54 10^3/uL (1.8-7.7); Neutrophils % 82.1 %; Nucleated Red Blood Cells % 0 %; Platelet Count 202 10^3/cmm (130-400); Red Blood Count 3.04 10^6/uL (4.1-5.3); White Blood Count 6.8 10^3/uL (4.0-10.0)
[2022-06-04] MEDS: ipratropium-albuterol 3 mL Neb INHALATION ×4 (03:27→19:54)
[2022-06-04 03:48] LABS: Alanine Aminotransferase 36 U/L (0-33); Alkaline Phosphatase 104 U/L (35-105); Anion Gap 10.8 (5-19); Aspartate Amino Transferase 24 U/L (0-32); Blood Urea Nitrogen 10 mg/dL (8-23); Calcium 8.3 mg/dL (8.5-10.5); Carbon Dioxide 25 mmol/L (22-29); Chloride 110 mmol/L (98-107); Globulin 2.4 g/dL (1.3-4.6); Glomerular Filtration Rate 123.1 mL/min (90-130); Glucose 131 mg/dL (65-115); Osmolality Calculated 295 mOsm/kg (285-295); Potassium 3.8 mmol/L (3.5-5.1); Sodium 142 mmol/L (136-145); Total Bilirubin 0.2 mg/dL (0.15-1.2); Total Protein 5.4 g/dL (6.6-8.7)
[2022-06-04] MEDS: piperacillin-tazobactam 3.375 GM in sodium chloride 0.9% (plus) 50 ML IV ×2 (03:50→12:28)
--- NOTE | 2022-06-04 06:50 | PC.NURSE ---
Bedside report completed with CHRIS Frost
--- NOTE | 2022-06-04 08:11 | PC.NURSE ---
Addendum entered by Debbie Chisholm RN 06/04/22 08:13: Bowel incontinence noted also Original Note: Seizure: approx 2 minutes. Grunting, and eye movement noted.
[2022-06-04] MEDS: hydrocortisone 100 mg/2 mL SDV 50 MG IVP ×2 (08:37→20:31)
[2022-06-04] MEDS: linezolid premix 600 MG/300 ML PREMIX 300 MG IV ×2 (08:37→20:09)
[2022-06-04] MEDS: montelukast sodium 10 mg Tablet PO (08:39)
[2022-06-04] MEDS: tamsulosin 0.4 mg Capsule PO (08:39)
[2022-06-04] MEDS: pantoprazole DR 40 mg Tablet PO (08:39)
[2022-06-04] MEDS: ascorbic acid 500 mg Tablet 2000 MG PO (08:39)
[2022-06-04] MEDS: zonisamide 100 MG Capsule PO ×2 (08:39→17:41)
[2022-06-04] MEDS: multivitamin therapeutic Tablet 1 TAB PO (08:40)
[2022-06-04] MEDS: folic acid 1 mg Tablet PO (08:40)
[2022-06-04] MEDS: famotidine 20 mg Tablet PO ×2 (08:40→17:41)
[2022-06-04] MEDS: cyanocobalamin 1,000 mcg Tablet 500 MCG PO (08:40)
[2022-06-04] MEDS: lactobacillus 1 Tablet 1 TAB PO (08:40)
[2022-06-04] MEDS: fluoxetine 20 mg Capsule PO (08:40)
[2022-06-04] MEDS: PHENYTOIN 50 MG 50 EACH PO ×2 (10:53→21:31)
[2022-06-04] MEDS: NON-FORMULARY MEDICATION (Vitamin B Complex Tablet) 1 EACH PO (10:53)
[2022-06-04] MEDS: ondansetron 2 mg/ML SDV 2 mL 4 MG IVP (11:02)
[2022-06-04 11:55] LABS: Levetiracetam Immunoassy 16.8 mcg/mL (6.0-46.0)
--- NOTE | 2022-06-04 11:56 | PC.SOCIAL ---
IMM update IMM updated with patient's caregiver at bedside. Verbalized an understanding. Copy Pg 2 provided. Initialled, dated, timed, and placed in chart.
--- NOTE | 2022-06-04 12:09 | PC.NURSE ---
Dilantin: pt had oral dose of 50mg . Per direction from Dr Naranjo hold the IV dose this am. Give IV Dilantin 12 hours from the time of the oral dose.
--- NOTE | 2022-06-04 12:10 | PC.CHAP ---
Pastoral Care Encounter/Spiritual Assessment Type of Contact [] Declined resident care assistant visit [] Patient/Family/Request visit [] Outpatient visit [] Follow-up visit [] Physician referral [] Code/Alert [x [] Out of room [] Palliative care [] [] Receiving care in room [] Pre-surgical visit [] Trauma [] Long length of stay [x] ICU visit [x] Other: setter Relational/Emotional Strength [] Patient feels connected with others/family/visitors/staff [] Distress [] Loneliness/isolation [] Abandonment Spirituality of Patient [] Person of Myesha [] Attends Mu-Ism of their Myesha [] Believes in Prayer [] Reads Bible or Holiness materials [] There are Spiritual issues to be addressed Waiter/Waitress Bar Interventions [x] Prayer [] Active listening [] Non-anxious presence [] Spiritual/emotional support [] Crisis/trauma care [] Spiritual counseling [] Bereavement support [] Provided bereavement packet [] Provided Bible/devotional materials [] Provided toy/stuffed animal, coloring book to patient or family member [] Provided Communion [] Anointing/Berry [] Salvation [x] Completed spiritual assessment [] Other: Impact on Illness or Injury [] Angry [] Fearful [] Anxious [] Often cries [] Exhaustion [] Unable to work [] Unable to attend hoahaoism [] Unable to walk/stand [] Unable to read [] Unable to drive [] Unable to eat/drink [] Unable to sleep [] Unable to be with family [] Patient intubated [] Other: Summary Time spent with patient
--- NOTE | 2022-06-04 14:00 | PC.NURSE ---
Seizure: approx 3 minutes. Grunting , absent gaze. Reported by caregiver.
[2022-06-04 15:18] LABS: Influenza A by IFA negative (Negative); Influenza B by IFA negative (Negative); SARS Covid-2 Antigen negative (Negative)
[2022-06-04] MEDS: fluconazole premix 100 MG in empty flexible container 1 EACH 50 MG IV (16:11)
[2022-06-04] MEDS: sodium chloride 0.9% 1,000 ML 50 ML IV (18:01)
--- NOTE | 2022-06-04 18:40 | PC.NURSE ---
Shift Note: Pt rested in bed throughout the shift. She is alert to self and place. She makes good eye contact during conversation. SHe has had 2 seizures this shift, the longest 3 minutes. She remains sinus rhythm on monitor. Her diet was upgraded to minced and moist today the nectar thickened fluids remain the same. She ate well at breakfast but picked at the following meals. She has been incontinent of BM multiple times today. URine output minimal at 375ml. Frequent safety and comfort rounds continue. Orders and/or nursing care completed as indicated. Patient monitored for response to intervention and treatment(s). Education provided includes plan of care, progress and medications. Patient and/or veterans contact representative verbalized understanding.. Will continue to monitor.
--- NOTE | 2022-06-04 19:12 | PC.NURSE ---
Bedside report completed with CHRIS Frost.
[2022-06-04] MEDS: enoxaparin 40 mg/0.4 mL Syringe SUBCUT (20:14)
[2022-06-04] MEDS: benzonatate 100 mg Capsule PO (22:23)
--- NOTE | 2022-06-04 22:40 | P.PN_ITS ---
Subjective Subjective: awake, alert, eating food with assistance. had a brief seizure episode this morning per nursing report Medications: Medication Review Details: Generic Name Dose Route Start Last Admin Trade Name Olivier PRN Reason Stop Dose Admin Albuterol/Ipratrop ium 3 ml 06/01/22 20:00 06/03/22 03:05 Ipratropium-Albu terol 3 Ml Neb INHALATION 3 ml Q6H.RESP MICHELLE Administration Ascorbic Acid 2,000 mg 06/02/22 09:00 06/02/22 08:17 Ascorbic Acid 50 0 Mg Tablet PO Not Given DAILY MICHELLE Cyanocobalamin 500 mcg 06/02/22 09:00 06/02/22 08:17 Cyanocobalamin 1 ,000 Mcg Tablet PO Not Given DAILY [facility] Enoxaparin Sodium 40 mg 06/02/22 20:00 06/02/22 21:46 Enoxaparin 40 Mg /0.4 Ml Syringe SUBCUT 40 mg Q24H MICHELLE Administration Famotidine 20 mg 06/02/22 09:00 06/02/22 18:07 Famotidine 20 Mg Tablet PO Not Given BID MICHELLE Fluoxetine HCl 20 mg 06/02/22 09:00 06/02/22 08:17 Fluoxetine 20 Mg Capsule PO Not Given DAILY MICHELLE Folic Acid 1 mg 06/02/22 09:00 06/02/22 08:18 Folic Acid 1 Mg Tablet PO Not Given DAILY [facility] Hydrocortisone Sod ium Succinate 50 mg 06/01/22 20:30 06/02/22 21:49 Hydrocortisone 1 00 Mg/2 Ml Sdv IVP 50 mg Q12H MICHELLE Administration Piperacillin Sod/T azobactam 50 mls @ 12.5 mls /hr 06/01/22 19:30 06/03/22 04:33 Sod 3.375 gm/ So dium Chloride IV 12.5 mls/hr Q8H MICHELLE Administration Protocol Sodium Chloride 1,000 mls @ 50 ml s/hr 06/01/22 20:30 06/02/22 21:45 Sodium Chloride 0.9% IV 50 mls/hr .Q20H MICHELLE Administration Vasopressin 40 uni t/ Sodium 40 mls @ 0.03 mls /min 06/01/22 23:45 06/03/22 01:47 Chloride IV Not Given CONT MICHELLE Norepinephrine Bit artrate 4 mg 254 mls @ 0 mls/h r 06/02/22 00:00 06/03/22 05:30 / Dextrose IV 0 mcg/min .Q0M MICHELLE 0 mls/hr Titration Protocol Per Protocol Linezolid 600 mg in 300 mls @ 300 mls/hr 06/02/22 08:45 06/02/22 22:55 Zyvox Premix IV Infused Q12H MICHELLE Infusion Protocol Levetiracetam 500 mg/ Sodium 105 mls @ 420 mls /hr 06/02/22 10:15 06/02/22 23:25 Chloride IV Infused Q12H MICHELLE Infusion Lacosamide 150 mg/ Sodium 65 mls @ 120 mls/ hr 06/02/22 10:30 06/03/22 00:00 Chloride IV Infused Q12H MICHELLE Infusion Phenytoin 50 mg/ S odium 21 mls @ 104 mls/ hr 06/02/22 11:15 06/03/22 00:00 Chloride/ IV Misce llaneous IV Infused Supplies Q12H MICHELLE Infusion Fluconazole 100 mg / N/A 50 mls @ 50 mls/h r 06/02/22 15:30 06/02/22 18:44 IV Infused Q24H MICHELLE Infusion Lactobacillus Acid ophilus 1 tab 06/02/22 09:00 06/02/22 08:18 Lactobacillus 1 Tablet PO Not Given DAILY MICHELLE Montelukast Sodium 10 mg 06/02/22 09:00 06/02/22 08:18 Montelukast Sodi um 10 Mg Tablet PO Not Given DAILY MICHELLE Multivitamins Ther apeutic 1 tab 06/02/22 09:00 06/02/22 08:18 Multivitamin The rapeutic Tablet PO Not Given DAILY MICHELLE Non-Formulary Medi cation 50 mg 06/02/22 09:00 06/02/22 17:13 Phenytoin [Silvano tin Infatabs] PO Not Given BID MICHELLE Non-Formulary Medi cation 1 tab 06/02/22 09:00 06/02/22 08:18 Vitamin B Comple x PO Not Given DAILY MICHELLE Ondansetron HCl 4 mg 06/01/22 17:16 06/02/22 23:17 Ondansetron 2 Mg /Ml Sdv 2 Ml IVP 4 mg Q6H PRN Administration NAUSEA AND VOMITI NG Pantoprazole Sodiu m 40 mg 06/02/22 09:00 06/02/22 08:[address] 40 Mg Tablet PO Not Given DAILY [facility] Polyethylene Glyco l 8.5 gm 06/02/22 09:00 06/02/22 08:18 Polyethylene Gly col 3350 Pkt 17 Gm PO Not Given DAILY [facility] Prednisone 2.5 mg 06/02/22 09:00 06/02/22 08:18 Prednisone 5 Mg Tablet PO Not Given DAILY [facility] Tamsulosin HCl 0.4 mg 06/02/22 09:00 06/02/22 08:18 Tamsulosin 0.4 M g Capsule PO Not Given DAILY [facility] Zonisamide 100 mg 06/02/22 09:00 06/02/22 18:07 Zonisamide 100 M g Capsule PO Not Given BID [facility] Vitals/I&O/Wt Last Vital Signs Temp 97.8 F 06/04/22 08:00 Pulse 71 06/04/22 19:55 Resp 23 H 06/04/22 19:55 BP 160/97 06/04/22 18:00 Pulse Ox 100 06/04/22 19:55 O2 Del Method 06/04/22 19:55 O2 Flow Rate 1 06/04/22 19:55 06/04/22 06/04/22 06/04/22 06:59 14:59 22:59 Intake Total 65 / 2232 770 / 770 1550 / 2320 Output Total 325 / 525 375 / 375 Balance -260 / 1707 770 / 770 1175 / 1945 Physical Exam Narrative: General: No acute distress, AO x1, awake, alert, eating HEENT: PERRLA, pupils bilaterally equal and reactive, pallors not present Chest: Normal vesicular breath sounds, no added sounds, equal good air entry bilaterally CVS: S1-S2 regular, no murmurs, no tachycardia, no gallops, no rubs Abdomen: Soft, nontender, no organomegaly, bowel sounds present \ Urinary Catheter Management: Vallecillo: Cath Placed During This Visit: yes Reason for Continuing Indwelling Catheter: Accurate Measurement of Urinary Output in Critically Ill Patients Urinary Catheter Date of Insertion: 06/02/22 Urinary Catheter Time of Insertion: 04:13 Data 06/04/22 02:33 06/04/22 02:33 A&P Assessment and plan (1) Pneumonia: (2) UTI (urinary tract infection): (3) Seizure: (4) Hypoxia: (5) Rheumatoid arthritis: Plan 66 year old female with PMH of TBI, Seizure disorder,long-term care facility, delayed development,partial lobectomy of frontal, temporal and parietal lobe, s/p [place] neuro stimulator placement, UTIs, was brought in with c/o cough,as well as desaturating to 80s at the facility today, she was also less active today as per her hospice care transitions coordinator,usually she is more active and chirpy.While at the time of my interaction with her she was not complaining of any pain,she is currently requiring 4 Ls oxygen to maintain decent saturation, usually she does not use oxygen,hospice care transitions coordinator is complaining of long standing non productive cough. Assessment : Septic shock secondary to pneumonia and UTI: AMS 2/2 UTI, PNA ( Possible Aspiration PNA ) Acute Hypoxia 2/2 PNA UTI H/O Seizure disorder Plan : CT head without contrast: No acute finding Xray chest : Minimal patchy opacity in the left lower lobe which could represent atelectasis and/or pneumonia.Small left pleural effusion.Cardiomegaly. CT chest abdomen and pelvis: CT chest suggestive of multifocal pneumonia, CT abdomen and pelvis: No acute findings. 2 D echo : Normal LV size and systolic function with EF of 63%, no RWMA, grade 1 diastolic dysfunction, no gross valvular abnormality, no pericardial effusion no pulmonary hypertension. Blood culture :NTD Urine culture : Pseudomonas Procalcitonin: 2.71 Random cortsiol : 34 Troponin trend: 37-26-22 On zosyn : As well as Zyvox. Has known allergy to vancomycin Was on vasopressors has been titrated off. Ideally patient should need A-line for accurate blood pressure measurement. Given concerning xray findings will be cautious with fluids.Will prefer gentle I.V Hydration. On hydrocortisone Continue home seizure as well as other medications. Duo nebs, supplemental oxygen as needed. Code Status :AND DVT PPX: On lovenox. plan for today: breakthrough seizure today, low phenytoin level , increase phenytoin to 50mg po q8h Attestations 2 Medical Necessity Statement*: * breakthrough seizures, needs ongoing monitoring Coding Level of Care Code Acute Lead Security Officer for [facility] Fwd Diagnoses Pneumonia J18.9 UTI (urinary tract infection) N39.0 Seizure R56.9 Hypoxia R09.02 Rheumatoid arthritis M06.9
[2022-06-05] VITALS (21 sets, daily range): BP systolic 132–181; BP diastolic 72–107; PULSE 63–89; RESP 17–34; TEMP 36.4–36.9; O2SAT 92–100
[2022-06-05] MEDS: piperacillin-tazobactam 3.375 GM in sodium chloride 0.9% (plus) 50 ML IV ×3 (02:43→20:11)
[2022-06-05] MEDS: ipratropium-albuterol 3 mL Neb INHALATION ×4 (03:14→20:38)
--- NOTE | 2022-06-05 06:55 | PC.NURSE ---
Bedside report completed with CHRIS Frost
[2022-06-05] MEDS: pantoprazole DR 40 mg Tablet PO (09:00)
[2022-06-05] MEDS: cyanocobalamin 1,000 mcg Tablet 500 MCG PO (09:00)
[2022-06-05] MEDS: zonisamide 100 MG Capsule PO ×2 (09:00→17:38)
[2022-06-05] MEDS: montelukast sodium 10 mg Tablet PO (09:00)
[2022-06-05] MEDS: lactobacillus 1 Tablet 1 TAB PO (09:00)
[2022-06-05] MEDS: fluoxetine 20 mg Capsule PO (09:01)
[2022-06-05] MEDS: famotidine 20 mg Tablet PO ×2 (09:01→17:38)
[2022-06-05] MEDS: tamsulosin 0.4 mg Capsule PO (09:01)
[2022-06-05] MEDS: hydrocortisone 100 mg/2 mL SDV 50 MG IVP (09:01)
[2022-06-05] MEDS: multivitamin therapeutic Tablet 1 TAB PO (09:01)
[2022-06-05] MEDS: folic acid 1 mg Tablet PO (09:01)
[2022-06-05] MEDS: linezolid premix 600 MG/300 ML PREMIX 300 MG IV (09:01)
[2022-06-05] MEDS: ascorbic acid 500 mg Tablet 2000 MG PO (09:01)
[2022-06-05] MEDS: NON-FORMULARY MEDICATION (Vitamin B Complex Tablet) 1 EACH PO (09:15)
--- NOTE | 2022-06-05 10:38 | PC.CHAP ---
Pastoral Care Encounter/Spiritual Assessment Type of Contact [] Declined assembler adjuster visit [] Patient/Family/Request visit [] Outpatient visit [] Follow-up visit [] Physician referral [] Code/Alert [x Routine visit [] Staff referral [] Actively dying [x] Patient sleeping [] Family support [] [] Out of room [] Palliative care [] [] Receiving care in room [] Pre-surgical visit [] Trauma [] Long length of stay [x] ICU visit [] Other: Relational/Emotional Strength [] Patient feels connected with others/family/visitors/staff [] Distress [] Loneliness/isolation [] Abandonment Spirituality of Patient [] Person of Myesha [] Attends Confucianist of their Myesha [] Believes in Prayer [] Reads Bible or Jew materials [] There are Spiritual issues to be addressed General Engineering Teacher Interventions [x] Prayer [] Active listening [] Non-anxious presence [] Spiritual/emotional support [] Crisis/trauma care [] Spiritual counseling [] Bereavement support [] Provided bereavement packet [] Provided Bible/devotional materials [] Provided toy/stuffed animal, coloring book to patient or family member [] Provided Communion [] Anointing/[place] [] Salvation [x] Completed spiritual assessment [] Other: Impact on Illness or Injury [] Angry [] Fearful [] Anxious [] Often cries [] Exhaustion [] Unable to work [] Unable to attend congregational [] Unable to walk/stand [] Unable to read [] Unable to drive [] Unable to eat/drink [] Unable to sleep [] Unable to be with family [] Patient intubated [] Other: Summary Time spent with patient
[2022-06-05] MEDS: benzonatate 100 mg Capsule PO (11:42)
[2022-06-05] MEDS: acetaminophen 325 mg Tablet 650 MG PO (11:42)
--- NOTE | 2022-06-05 12:06 | PC.NURSE ---
Report called to [facility] and given to [facility]. Awaiting transfer orders to populate. Dr Naranjo notied of need for transfer orders.
--- NOTE | 2022-06-05 13:37 | PC.NURSE ---
Pt transferred to [facility]. Further update given to Tiffany, RN. Pt incontinent of stool after all belongings moved and pt moved. [facility] She would request Cristy to help.
--- NOTE | 2022-06-05 16:02 | P.PN_ITS ---
Subjective Subjective: Hypertensive today with systolic blood pressure ranging in 180s. Otherwise continues to be alert awake. Medications: Reviewed: Yes Medication Review Details: Generic Name Dose Route Start Last Admin Trade Name Olivier PRN Reason Stop Dose Admin Albuterol/Ipratrop ium 3 ml 06/01/22 20:00 06/03/22 03:05 Ipratropium-Albu terol 3 Ml Neb INHALATION 3 ml Q6H.RESP MICHELLE Administration Ascorbic Acid 2,000 mg 06/02/22 09:00 06/02/22 08:17 Ascorbic Acid 50 0 Mg Tablet PO Not Given DAILY MICHELLE Cyanocobalamin 500 mcg 06/02/22 09:00 06/02/22 08:17 Cyanocobalamin 1 ,000 Mcg Tablet PO Not Given DAILY [facility] Enoxaparin Sodium 40 mg 06/02/22 20:00 06/02/22 21:46 Enoxaparin 40 Mg /0.4 Ml Syringe SUBCUT 40 mg Q24H MICHELLE Administration Famotidine 20 mg 06/02/22 09:00 06/02/22 18:07 Famotidine 20 Mg Tablet PO Not Given BID MICHELLE Fluoxetine HCl 20 mg 06/02/22 09:00 06/02/22 08:17 Fluoxetine 20 Mg Capsule PO Not Given DAILY MICHELLE Folic Acid 1 mg 06/02/22 09:00 06/02/22 08:18 Folic Acid 1 Mg Tablet PO Not Given DAILY [facility] Hydrocortisone Sod ium Succinate 50 mg 06/01/22 20:30 06/02/22 21:49 Hydrocortisone 1 00 Mg/2 Ml Sdv IVP 50 mg Q12H MICHELLE Administration Piperacillin Sod/T azobactam 50 mls @ 12.5 mls /hr 06/01/22 19:30 06/03/22 04:33 Sod 3.375 gm/ So dium Chloride IV 12.5 mls/hr Q8H MICHELLE Administration Protocol Sodium Chloride 1,000 mls @ 50 ml s/hr 06/01/22 20:30 06/02/22 21:45 Sodium Chloride 0.9% IV 50 mls/hr .Q20H MICHELLE Administration Vasopressin 40 uni t/ Sodium 40 mls @ 0.03 mls /min 06/01/22 23:45 06/03/22 01:47 Chloride IV Not Given CONT MICHELLE Norepinephrine Bit artrate 4 mg 254 mls @ 0 mls/h r 06/02/22 00:00 06/03/22 05:30 / Dextrose IV 0 mcg/min .Q0M MICHELLE 0 mls/hr Titration Protocol Per Protocol Linezolid 600 mg in 300 mls @ 300 mls/hr 06/02/22 08:45 06/02/22 22:55 Zyvox Premix IV Infused Q12H MICHELLE Infusion Protocol Levetiracetam 500 mg/ Sodium 105 mls @ 420 mls /hr 06/02/22 10:15 06/02/22 23:25 Chloride IV Infused Q12H MICHELLE Infusion Lacosamide 150 mg/ Sodium 65 mls @ 120 mls/ hr 06/02/22 10:30 06/03/22 00:00 Chloride IV Infused Q12H MICHELLE Infusion Phenytoin 50 mg/ S odium 21 mls @ 104 mls/ hr 06/02/22 11:15 06/03/22 00:00 Chloride/ IV Misce llaneous IV Infused Supplies Q12H MICHELLE Infusion Fluconazole 100 mg / N/A 50 mls @ 50 mls/h r 06/02/22 15:30 06/02/22 18:44 IV Infused Q24H MICHELLE Infusion Lactobacillus Acid ophilus 1 tab 06/02/22 09:00 06/02/22 08:18 Lactobacillus 1 Tablet PO Not Given DAILY MICHELLE Montelukast Sodium 10 mg 06/02/22 09:00 06/02/22 08:18 Montelukast Sodi um 10 Mg Tablet PO Not Given DAILY MICHELLE Multivitamins Ther apeutic 1 tab 06/02/22 09:00 06/02/22 08:18 Multivitamin The rapeutic Tablet PO Not Given DAILY MICHELLE Non-Formulary Medi cation 50 mg 06/02/22 09:00 06/02/22 17:13 Phenytoin [Silvano tin Infatabs] PO Not Given BID MICHELLE Non-Formulary Medi cation 1 tab 06/02/22 09:00 06/02/22 08:18 Vitamin B Comple x PO Not Given DAILY MICHELLE Ondansetron HCl 4 mg 06/01/22 17:16 06/02/22 23:17 Ondansetron 2 Mg /Ml Sdv 2 Ml IVP 4 mg Q6H PRN Administration NAUSEA AND VOMITI NG Pantoprazole Sodiu m 40 mg 06/02/22 09:00 06/02/22 08:[address] 40 Mg Tablet PO Not Given DAILY [facility] Polyethylene Glyco l 8.5 gm 06/02/22 09:00 06/02/22 08:18 Polyethylene Gly col 3350 Pkt 17 Gm PO Not Given DAILY [facility] Prednisone 2.5 mg 06/02/22 09:00 06/02/22 08:18 Prednisone 5 Mg Tablet PO Not Given DAILY [facility] Tamsulosin HCl 0.4 mg 06/02/22 09:00 06/02/22 08:18 Tamsulosin 0.4 M g Capsule PO Not Given DAILY [facility] Zonisamide 100 mg 06/02/22 09:00 06/02/22 18:07 Zonisamide 100 M g Capsule PO Not Given BID [facility] Vitals/I&O/Wt Last Vital Signs Temp 97.7 F 06/05/22 15:30 Pulse 79 06/05/22 15:30 Resp 22 H 06/05/22 15:30 BP 181/81 06/05/22 15:30 Pulse Ox 95 06/05/22 15:30 O2 Del Method 06/05/22 15:30 O2 Flow Rate 1 06/05/22 14:15 06/05/22 06/05/22 06/05/22 06:59 14:59 22:59 Intake Total 220 / 2790 1740 / 1740 50 / 1790 Output Total 1300 / 1675 Balance -1080 / 1115 1740 / 1740 50 / 1790 Physical Exam Narrative: General: No acute distress, AO x1-2, awake, alert, eating HEENT: PERRLA, pupils bilaterally equal and reactive, pallors not present Chest: Normal vesicular breath sounds, no added sounds, equal good air entry bilaterally CVS: S1-S2 regular, no murmurs, no tachycardia, no gallops, no rubs Abdomen: Soft, nontender, no organomegaly, bowel sounds present Urinary Catheter Management: Vallecillo: Cath Placed During This Visit: yes Reason for Continuing Indwelling Catheter: Chronic Indwelling Urinary Catheter on Admission Urinary Catheter Date of Insertion: 06/02/22 Urinary Catheter Time of Insertion: 04:13 Data 06/04/22 02:33 06/04/22 02:33 A&P Assessment and plan (1) Pneumonia: (2) UTI (urinary tract infection): (3) Seizure: (4) Hypoxia: (5) Rheumatoid arthritis: Plan 66 year old female with PMH of TBI, Seizure disorder,long-term care facility, delayed development,partial lobectomy of frontal, temporal and parietal lobe, s/p [facility] neuro stimulator placement, UTIs, was brought in with c/o cough,as well as desaturating to 80s at the facility, she was also less active today as per her director critical care. # Septic shock secondary to pneumonia and UTI This was present upon admission. Patient needed to be transferred to ICU due to hypotension on the night of admission. She required pressor support with Levophed and vasopressin. This is thought to be likely secondary to pneumonia and UTI. CT of her chest showed mild right upper lobe and mid to moderate lingular grou ndglass opacities and patchy consolidation. Findings suggestive of multifocal pneumonia. CT of the abdomen and pelvis was unremarkable. patient has a chronic indwelling Vallecillo which was changed during this admission. Urine culture eventually showed growth of Pseudomonas aeruginosa. Blood culture has remained negative to date. Sputum culture unable to be obtained. She was evaluated by speech therapy to assess for possible aspiration and a modified dysphagia diet is recommended. She is now improving overall. Her mentation is much better. She is back to her baseline though does have intermi ttent seizure-like activity. She has been on treatment with piperacillin tazobactam, linezolid, fluconazole since admission. Will discontinue linezolid and fluconazole as no evidence of resistant bacteria. Zosyn will provide adequate coverage for both her UTI and her pneumonia. Plan discharged on Levaquin when ready. negative influenza and COVID antigens. # AMS normal CT head. Suspect that this was related to acute metabolic encephalopathy from her infection. However cannot rule out the possibility of postictal state as patient continues to have short seizure versus in the hospital. Her phenytoin has been titrated up to 50 mg p.o. every 8 hours due to low lev els, home dose of 50 mg p.o. every 12 hours. Additionally will uptitrate Keppra 2000 mg twice daily. Continue zonisamide and Vimpat at home dosing. I have discussed with the caregivers that I would like to go ahead and discuss her case further with her to get the cards to titrating antiepileptics with our neurologist here, however they state that they due to the past experience. Not wish me to consult the on-call neurologist #Currently stable oxygen requirements. Acute Hypoxia 2/2 PNA # UTI, as above # H/O Seizure disorder #Hypertension with systolic blood pressure ranging 180s. We will start amlodipine today. Code Status :AND DVT PPX: On lovenox. Attestations Medical Necessity Statement*: Slowly improving, transfer out of ICU to [facility] urg. Anticipate discharge in the upcoming 24 to 48 hours if continues to improve. Discontinue linezolid and fluconazole today, closely monitor. Coding Level of Care Code Acute Document Advisor for [facility] Fwd Diagnoses Pneumonia J18.9 UTI (urinary tract infection) N39.0 Seizure R56.9 Hypoxia R09.02 Rheumatoid arthritis M06.9
[2022-06-05] MEDS: amlodipine 5 mg Tablet PO (16:37)
[2022-06-05] MEDS: levETIRAcetam 500 mg Tablet 1000 MG PO (17:38)
[2022-06-05] MEDS: lacosamide 50 mg Tablet 150 MG PO (17:38)
[2022-06-05] MEDS: enoxaparin 40 mg/0.4 mL Syringe SUBCUT (20:11)
[2022-06-06] VITALS (8 sets, daily range): BP systolic 123–174; BP diastolic 73–83; PULSE 67–83; RESP 18–22; TEMP 36.8–37.1; O2SAT 88–95
[2022-06-06] MEDS: ipratropium-albuterol 3 mL Neb INHALATION ×3 (01:50→13:38)
[2022-06-06] MEDS: piperacillin-tazobactam 3.375 GM in sodium chloride 0.9% (plus) 50 ML IV (03:41)
[2022-06-06 05:42] LABS: Basophils % 0.2 %; Eosinophils # 0.5 10^3/uL (0.0-0.8); Eosinophils % 5.8 %; Hematocrit 33.9 % (37.0-47.0); Hemoglobin 10.7 g/dL (11.5-15.3); Lymphocytes # 2.2 10^3/uL (0.8-4.8); Lymphocytes % 25.7 %; Mean Corpuscular HGB Conc 31.6 g/dL (30.0-36.0); Mean Corpuscular Hemoglobin 30.7 pg (28.0-34.0); Mean Corpuscular Volume 97.4 fl (81-99); Mean Platelet Volume 9.9 fL (7.4-10.4); Monocytes # 0.6 10^3/uL (0.2-0.9); Monocytes % 6.6 %; Neutrophils % 60.7 %; Nucleated Red Blood Cells % 0 %; Platelet Count 243 10^3/cmm (130-400); Red Blood Count 3.48 10^6/uL (4.1-5.3); Red Cell Distribution Width 13.2 % (12.1-15.1); White Blood Count 8.6 10^3/uL (4.0-10.0)
[2022-06-06 06:08] LABS: Alanine Aminotransferase 64 U/L (0-33); Albumin Level 3.2 g/dL (3.5-5.2); Alkaline Phosphatase 80 U/L (35-105); Anion Gap 11.4 (5-19); Aspartate Amino Transferase 45 U/L (0-32); Blood Urea Nitrogen 2 mg/dL (8-23); Calcium 7.8 mg/dL (8.5-10.5); Carbon Dioxide 27 mmol/L (22-29); Chloride 108 mmol/L (98-107); Globulin 2.6 g/dL (1.3-4.6); Glomerular Filtration Rate 159.2 mL/min (90-130); Glucose 85 mg/dL (65-115); Osmolality Calculated 293 mOsm/kg (285-295); Sodium 144 mmol/L (136-145); Total Bilirubin 0.2 mg/dL (0.15-1.2); Total Protein 5.8 g/dL (6.6-8.7)
[2022-06-06 06:19] LABS: Potassium 2.4 mmol/L (3.5-5.1)
[2022-06-06] MEDS: cyanocobalamin 1,000 mcg Tablet 500 MCG PO (08:20)
[2022-06-06] MEDS: levETIRAcetam 500 mg Tablet 1000 MG PO (08:21)
[2022-06-06] MEDS: lacosamide 50 mg Tablet 150 MG PO (08:21)
[2022-06-06] MEDS: ascorbic acid 500 mg Tablet 2000 MG PO (08:21)
[2022-06-06] MEDS: tamsulosin 0.4 mg Capsule PO (08:21)
[2022-06-06] MEDS: famotidine 20 mg Tablet PO (08:21)
[2022-06-06] MEDS: fluoxetine 20 mg Capsule PO (08:21)
[2022-06-06] MEDS: zonisamide 100 MG Capsule PO (08:21)
[2022-06-06] MEDS: amlodipine 5 mg Tablet PO (08:22)
[2022-06-06] MEDS: predniSONE 1 mg Tablet 2.5 MG PO (08:22)
[2022-06-06] MEDS: polyethylene glycol 3350 Pkt 17 gm 8.5 GM PO (08:23)
[2022-06-06] MEDS: lidocaine 1% 5 ML in potassium chloride premix 100 ML 25 ML IV ×2 (10:03→13:52)
[2022-06-06] MEDS: potassium chloride ER 20 mEq Tablet 40 MEQ PO (10:49)
--- NOTE | 2022-06-06 11:05 | PC.SOCIAL ---
IMM Update pg 2 of IMM updated. Copy left @ bedside. Attempted to call patients guardians and unable to leave a message.
--- NOTE | 2022-06-06 11:11 | PC.SOCIAL ---
IMM Update pg 2 of IMM updated and reviewed w/ patients sister (guardian) on the phone. Copy left @ bedside and Copy in chart dated, and initialed.
[2022-06-06 12:02] LABS: Potassium 2.8 mmol/L (3.5-5.1)
--- NOTE | 2022-06-06 13:47 | ECG_ITS ---
[facility] Test Date: 2022-06-06 Pat Name: Dasia Brian Department: Room: 250 Gender: Female Herd Tester: : 1955 Requested By: Isamar Naranjo Order Number: [id number] Cristian MD: Florida Rivera M.D. Measurements Intervals Normal Rate: 81 P: 10 [place]: 154 QRS: 27 QRSD: 78 T: 34 QT: 385 QTc: 448 Interpretive Statements SINUS RHYTHM Compared to ECG 06/02/2022 00:19:47 Sinus tachycardia no longer present Electronically Signed On 06-06-2022 21:43:11 PEDIATRIC UROLOGIST by Florida Rivera M.D. [email or web address]
--- NOTE | 2022-06-06 16:00 | PM.DCS ---
Discharge Providers Date of Admission: 06/01/22 15:35 Date of Discharge: June 07, 2022 Attending Provider at Admission: Jaskaran Urias MD Attending Provider at Discharge: Isamar Naranjo MD Primary Care Provider: Marilyn Trivedi APN Diagnoses at Discharge Discharge Diagnosis (1) Pneumonia: Status: Acute (2) UTI (urinary tract infection): Status: Acute (3) Seizure: Status: Acute (4) Hypoxia: Status: Acute (5) Rheumatoid arthritis: Status: Acute Reason for Visit Reason for Visit: DECREASED LOC/ RECENT UTI Brief History: Dasia Brian is a 66 year old female with PMH of TBI, Seizure disorder,long-term care facility, delayed development,partial lobectomy of frontal, temporal and parietal lobe, s/p [place] [facility] [place] neuro stimulator placement, UTIs, was brought in with c/o cough,as well as desaturating to 80s at the facility today, she was also less active today as per her healthcare consultant,usually she is more active and chirpy.While at the time of my interaction with her she was not complaining of any pain,she is currently requiring 4 Ls oxygen to maintain decent saturation, usually she does not use oxygen,healthcare consultant is complaining of long standing non productive cough.she is also having fever here in hospital with noted Tmax of 100.7. She was? discharged with longoria catheter in April last year and the catheter has not been changed as of of yet. her pertinent labs , imging studies and vitals have been reviewed. Hospital Course Hospital Course 66 year old female with PMH of TBI, Seizure disorder,long-term care facility, delayed development,partial lobectomy of frontal, temporal and parietal lobe, s/p [employer] neuro stimulator placement, UTIs, was brought in with c/o cough,as well as desaturating to 80s at the facility, she was also less active as per her healthcare consultant. Hospital course as below: # Septic shock secondary to pneumonia and UTI This was present upon admission.? Patient needed to be transferred to ICU due to hypotension on the night of admission.? She required pressor support with Levophed and vasopressin. This is thought to be likely secondary to pneumonia and UTI. CT of her chest showed mild right upper lobe and mid to moderate lingular groundglass opacities and patchy consolidation.? Findings suggestive of multifocal pneumonia.? CT of the abdomen and pelvis was unremarkable. patient has a chronic indwelling Longoria which was changed during this admission. Urine culture eventually showed growth of Pseudomonas aeruginosa.? Blood culture has remained negative to date. Sputum culture unable to be obtained. She was evaluated by speech therapy to assess for possible aspiration and a modified dysphagia diet is recommended.? She is now improving overall.? Her mentation is much better.? She is back to her baseline though does have intermittent seizure-like activity. She has been on treatment with piperacillin tazobactam, linezolid, fluconazole during course of admission, narrowed to Zosyn. Zosyn will provide adequate coverage for both her UTI and her pneumonia.? transitioned to Cipro 500mg BID at discharge for 2 days. . Documented levoflox allergy as rash- has never tried cipro in the past. negative influenza and COVID antigens. # AMS ?normal CT head. Suspect that this was related to acute metabolic encephalopathy from her infection. However cannot rule out the possibility of postictal state as patient continued to have short seizure versus in the hospital. Unclear if these were true seizures vs myoclonic jerks. Her phenytoin has been titrated up to 50 mg p.o. every 8 hours due to low levels, home dose of 50 mg p.o. every 12 hours. Additionally uptitrated Keppra to 1000 mg twice daily. Continuing zonisamide and Vimpat at home dosing. I have discussed with the caregivers that I would like to go ahead and discuss her case further with regards to titrating antiepileptics with our neurologist here, also possibly obtain an EEG, however they state that they due to the past experience they do not wish me to consult the on-call neurologist. I have set her up with [facility] her first available appt is in July 2021. #Currently stable oxygen requirements.? Acute Hypoxia 2/2 PNA, now resolved # UTI, as above # Hypertension with systolic blood pressure ranging 180s.? We will start amlodipine today. Physical Exam Narrative: General: No acute distress, AO x3 HEENT: PERRLA, pupils bilaterally equal and reactive, pallors not present Chest: Normal vesicular breath sounds, no added sounds, equal good air entry bilaterally CVS: S1-S2 regular, no murmurs, no tachycardia, no gallops, no rubs Abdomen: Soft, nontender, no organomegaly, bowel sounds present Neuro: No focal deficits, no facial deformity, AO x3, power 5/5 in all limbs Urinary Catheter Management: Longoria: Cath Placed During This Visit: yes, but has since been removed by the nurse Reason for Continuing Indwelling Catheter: Decision to DC Catheter Urinary Catheter Date of Insertion: 06/02/22 Urinary Catheter Time of Insertion: 04:13 Date Urinary Catheter Removed: 06/06/22 Time Urinary Catheter Discontinued: 12:21 Discharge Data Studies Completed and Pending Completed Studies During Hospitalization Category Date Time Status CT chest abdomen pelvis [[place] [id number] Cat Scan 06/02/22 05:20 Completed ] Urgent CT head wo con* [id number] Urgent Cat Scan 06/02/22 05:47 Completed XR chest 1V portable [id number] Stat Exams 06/01/22 13:21 Completed CV. echo complete* [id number] Routine Ultrasound 06/02/22 06:00 Completed Pending at discharge Category Date Time Status [place] (Vimpat) Routine Lab 06/03/22 04:25 Received Radiology Impressions Chest X-Ray 06/01/22 13:21 Impression: 1. Minimal patchy opacity in the left lower lobe which could represent atelectasis and/or pneumonia. 2. Small left pleural effusion. 3. Cardiomegaly and atherosclerosis. Chest/Abdomen/Pelvis CT 06/02/22 05:20 IMPRESSION: 1. Small lung volumes. Mild right upper lobe and [id number] lingular ground-glass opacities and small regions of patchy consolidation. Moderate to severe right lower lobe and moderate left lower lobe regions of consolidation with some ground-glass opacities. These findings are suggestive of multifocal pneumonia. Recommend follow-up until complete resolution. 2. Znml-ls-gvugpcmw cardiomegaly. 3. Chronic changes, as noted above. IMPRESSION: 1. No acute abnormality seen on the non-contrast abdominal and pelvic CT. No abdominal or pelvic fluid collections or abscess. 2. Chronic changes, as noted above. Head CT 06/02/22 05:47 IMPRESSION: Stable chronic changes of brain as described. Laboratory Results WBC 8.6 10^3/uL (4.0-10.0) 06/06/22 04:51 Corrected WBC Cancelled 06/01/22 13:40 RBC 3.48 10^6/uL (4.1-5.3) L 06/06/22 04:51 Hgb 10.7 g/dL (11.5-15.3) L 06/06/22 04:51 Hct 33.9 % (37.0-47.0) L 06/06/22 04:51 MCV 97.4 fl (81-99) 06/06/22 04:51 MCH 30.7 pg (28.0-34.0) 06/06/22 04:51 MCHC 31.6 g/dL (30.0-36.0) 06/06/22 04:51 RDW 13.2 % (12.1-15.1) 06/06/22 04:51 Plt Count 243 10^3/cmm (130-400) 06/06/22 04:51 MPV 9.9 fL (7.4-10.4) 06/06/22 04:51 Gran % Cancelled 06/01/22 13:40 Neut % (Auto) 60.7 % 06/06/22 04:51 Lymph % (Auto) 25.7 % 06/06/22 04:51 [place] % (Auto) 6.6 % 06/06/22 04:51 Eos % (Auto) 5.8 % 06/06/22 04:51 Baso % (Auto) 0.2 % 06/06/22 04:51 Neut # (Auto) 5.20 10^3/uL (1.8-7.7) 06/06/22 04:51 Lymph # (Auto) 2.2 10^3/uL (0.8-4.8) 06/06/22 04:51 [place] # (Auto) 0.6 10^3/uL (0.2-0.9) 06/06/22 04:51 Eos # (Auto) 0.5 10^3/uL (0.0-0.8) 06/06/22 04:51 Baso # (Auto) 0.0 10^3/uL (0.0-0.1) 06/06/22 04:51 Absolute Gran (auto) Cancelled 06/01/22 13:40 Nucleated RBC % (auto) 0 % 06/06/22 04:51 Nucleated RBCs # 0.0 /100WBC 06/06/22 04:51 Specimen Type Arterial 06/01/22 23:45 Sample Site Radial, right 06/01/22 23:45 ABG pH 7.37 (7.35-7.45) 06/01/22 23:45 ABG pCO2 37.5 mmHg (35-45) 06/01/22 23:45 ABG pO2 62.6 mmHg (80.0-100.0) L 06/01/22 23:45 ABG HCO3 21.6 mmol/L (22-26) L 06/01/22 23:45 ABG O2 Saturation 91.3 06/01/22 15:45 ABG Base Excess -3.3 mmol/L (-2.0-2.0) L 06/01/22 23:45 Gustavo Test Pos 06/01/22 23:45 A-a O2 Gradient 18.9 mmHg (5-10) H 06/01/22 15:45 Hematocrit 39.8 % (37-47) 06/01/22 23:45 Hgb O2 Saturation 90.4 % (95-100) L 06/01/22 15:45 Carboxyhemoglobin < 1.0 %THgb (0.4-20.1) 06/01/22 15:45 Methemoglobin 0.4 % (0.4-1.5) 06/01/22 15:45 Total Hemoglobin 13.6 g/dL (12-16) 06/01/22 15:45 Sodium 141.0 mmol/L (131-143) 06/01/22 15:45 Potassium 4.6 mmol/L (3.5-5.0) 06/01/22 15:45 Glucose 128.0 mg/dL (70-115) H 06/01/22 15:45 Ionized Calcium 1.2 mmol/L (1.1-1.4) 06/01/22 15:45 O2 Delivery Device Oxy mask 06/01/22 23:45 O2 Liters/Min 15.0 % 06/01/22 23:45 FiO2 36.0 % 06/01/22 15:45 [employer] 06/01/22 23:45 Sodium 144 mmol/L (136-145) 06/06/22 04:51 Potassium 2.8 mmol/L (3.5-5.1) L* 06/06/22 10:55 Chloride 108 mmol/L (98-107) H 06/06/22 04:51 Carbon Dioxide 27 mmol/L (22-29) 06/06/22 04:51 Anion Gap 11.4 (5-19) 06/06/22 04:51 BUN 2 mg/dL (8-23) L 06/06/22 04:51 Creatinine 0.4 mg/dL (0.5-0.9) L 06/06/22 04:51 GFR Calculation 159.2 mL/min (90-130) H 06/06/22 04:51 Glucose 85 mg/dL (65-115) 06/06/22 04:51 POC Glucose 132 mg/dL (70-110) H 06/02/22 17:51 Calculated Osmolality 293 mOsm/kg (285-295) 06/06/22 04:51 Lactic Acid 2.2 mmol/L (0.5-2.2) 06/01/22 16:40 Lactic Acid (Sepsis) 4.0 mmol/L (0.5-2.2) H 06/01/22 23:45 Lactate 1.1 mmol/L (0.5-2.2) 06/03/22 04:25 Calcium 7.8 mg/dL (8.5-10.5) L 06/06/22 04:51 Phosphorus 4.3 mg/dL (2.5-4.5) 06/01/22 23:45 Magnesium 1.8 mg/dL (1.7-2.3) 06/01/22 23:45 Total Bilirubin 0.2 mg/dL (0.15-1.2) 06/06/22 04:51 AST 45 U/L (0-32) H 06/06/22 04:51 ALT 64 U/L (0-33) H 06/06/22 04:51 Alkaline Phosphatase 80 U/L (35-105) 06/06/22 04:51 Troponin T Baseline 37 ng/L (0-10) H 06/01/22 23:45 Troponin T 120 Minute 26.36 ng/L (0-10) H 06/02/22 01:48 Delta Troponin T -10.64 ABS# (0-10) L 06/02/22 01:48 Troponin T Hi Sens 6Hr 22.00 ng/L (0-10) H 06/02/22 05:28 Troponin T Hi Sens 6Hr Delta -15.00 ng/L (0-12) L 06/02/22 05:28 NT-Pro-B Natriuret Pep 370 pg/mL (0-125) H 06/02/22 01:48 Total Protein 5.8 g/dL (6.6-8.7) L 06/06/22 04:51 Albumin 3.2 g/dL (3.5-5.2) L 06/06/22 04:51 Globulin 2.6 g/dL (1.3-4.6) 06/06/22 04:51 Procalcitonin 1.56 ng/mL (0-0.5) H 06/03/22 04:25 Random Cortisol 36.88 ug/dL (2.47-19.5) H 06/02/22 05:28 Urine Color Dominique (Yellow) 06/01/22 13:38 Urine Appearance Clear (CLEAR) 06/01/22 13:38 Urine pH 6 (5-7) 06/01/22 13:38 Ur Specific [place] 1.025 (1.005-1.030) 06/01/22 13:38 Urine Protein Neg (Negative) 06/01/22 13:38 Urine Glucose (UA) Norm (Normal) 06/01/22 13:38 Urine Ketones Negative (Negative) 06/01/22 13:38 Urine Blood 3+ (Negative) H 06/01/22 13:38 Urine Nitrate Positive (Negative) H 06/01/22 13:38 Urine Bilirubin Neg (Negative) 06/01/22 13:38 Urine Urobilinogen Neg mg/dL (Negative) 06/01/22 13:38 Ur Leukocyte Esterase 1+ (Negative) H 06/01/22 13:38 Urine RBC 15-25 /hpf (0-2) H 06/01/22 13:38 Urine WBC 15-25 /hpf (0-5) H 06/01/22 13:38 Ur Squamous Epith Cells 0-4 /hpf (0-5) H 06/01/22 13:38 Calcium Oxalate Crystal 0-4 /hpf H 06/01/22 13:38 Other Crystals /hpf 06/01/22 13:38 Amorphous Sediment Not Reportable 06/01/22 13:38 Urine Bacteria 3+ /hpf (NONE) H 06/01/22 13:38 Urine Yeast 2+ /hpf H 06/01/22 13:38 Phenytoin 9.8 ug/mL (10-20) L 06/03/22 04:30 Levetiracetam 16.8 mcg/mL (6.0-46.0) 06/03/22 04:25 Influenza Type A Ag negative (Negative) 06/04/22 14:50 Influenza Type B Ag negative (Negative) 06/04/22 14:50 SARS-CoV-2 Ag (Rapid) negative (Negative) 06/04/22 14:50 Vitals Last Vital Signs Temp 98.2 F 06/06/22 11:51 Pulse 80 06/06/22 17:08 Resp 22 H 06/06/22 17:08 BP 123/73 06/06/22 11:51 Pulse Ox 94 06/06/22 17:08 O2 Del Method 06/06/22 13:39 O2 Flow Rate 1 06/06/22 13:39 Discharge Plan Discharge Patient Disposition: Home Condition: Stable Prescriptions: New benzonatate 100 mg Capsule 100 mg PO TID PRN (Reason: Cough) 10 Days Qty: 30 0RF ciprofloxacin HCl [Cipro] 500 mg tablet 500 mg PO Q12H 2 Days Qty: 4 0RF Rx Instructions: rx written 06/06/2022 medication not on mar Continued folic acid 1 mg tablet 1 mg PO DAILY@08 montelukast [Singulair] 10 mg tablet 10 mg PO DAILY@08 multivitamin Tablet 1 tab PO DAILY@08 polyethylene glycol 3350 [Miralax] 17 gram/dose powder 8.5 gm PO DAILY@08 Rx Instructions: with h2o or juice fluticasone propionate [Flonase Allergy Relief] 50 mcg/actuation spray,suspension 1 spray INTRANASAL DAILY@08 Rx Instructions: administer into each nostril pantoprazole [Protonix] 40 mg tablet,delayed release (DR/EC) 40 mg PO DAILY@08 prednisone 2.5 mg tablet 2.5 mg PO DAILY@08 tamsulosin [Flomax] 0.4 mg capsule 0.4 mg PO BID@08,20 zonisamide [Zonegran] 100 mg capsule 100 mg PO BID@08,20 Flovent HFA 220 mcg/actuation HFA aerosol inhaler 1 inh INHALATION BID@08,20 Vimpat 150 mg tablet 150 mg PO BID@08,20 sucralfate [Carafate] 1 gram tablet 1 gm PO BID@08,20 cholecalciferol (vitamin D3) 1,250 mcg (50,000 unit) capsule 50,000 unit PO Q7D phenazopyridine [Azo Urinary Pain Relief] 95 mg tablet 190 mg PO TID PRN (Reason: Bladder Spasms) alprazolam [Xanax] 0.25 mg tablet 0.25 mg PO Q4H PRN (Reason: Seizures lasting over 10 mins) acetaminophen [Tylenol] 325 mg capsule 325 mg PO Q4H PRN (Reason: Pain) simethicone [Gas-X Extra Strength] 125 mg capsule 125 mg PO Q8H PRN (Reason: Stomach Upset) docusate sodium [Colace] 100 mg capsule 100 mg PO BEDTIME PRN (Reason: Constipation) Rx Instructions: after 3 days of no bm calcium carbonate [Tums] 200 mg calcium (500 mg) tablet,chewable 200 mg PO DAILY PRN (Reason: Heartburn) ondansetron HCl 4 mg Tablet 4 mg PO Q4H PRN (Reason: Nausea And Vomiting) nitrofurantoin macrocrystal [Macrodantin] 100 mg Capsule 100 mg PO BEDTIME@20 Rx Instructions: must administer with a meal/food cyanocobalamin (vitamin B-12) 500 mcg Tablet 500 mcg PO DAILY@12 fluoxetine 20 mg Tablet 20 mg PO DAILY@12 Rx Instructions: with 10mg caps vitamin B complex Tablet 1 tab PO DAILY@12 scopolamine base [Transderm-Scop] 1 mg over 3 days Patch 3 Day 1 patch TRANSDERMAL Q3D Rx Instructions: behind ear Acidophilus Tablet,Chewable 1 tab PO DAILY@08 [place] 1 tab PO BID@08,20 triamcinolone acetonide 0.1 % Cream 1 applic TOPICAL BID PRN (Reason: Rash) albuterol sulfate 90 mcg/actuation Hfa Aerosol Inhaler 2 puff INHALATION QID PRN (Reason: Shortness Of Breath) clotrimazole 1 % Cream See Rx Instructions .ROUTE .COMPLEX Rx Instructions: apply to rash bid until clear then prn Nutritional Drink Liquid 1 ea PO TID@,,19 diclofenac sodium 1 % Gel 4 g TOPICAL QID PRN (Reason: Pain) Rx Instructions: apply to single knee, ankle, foot; for foot includes sole/toes/top of foot Cbd Oil 0.5 ml PO DAILY@08 famotidine 20 mg tablet 20 mg PO BID@08,20 (DME) Breathe Right Strip TOPICAL Rx Instructions: prn Changed levetiracetam 500 mg tablet 1,000 mg PO BID 30 Days Qty: 60 0RF Discontinued phenytoin [Dilantin Infatabs] 50 mg tablet,chewable 50 mg PO BID No Action Tylenol-Codeine #3 300-30 mg Tablet 1 tab PO Q4H PRN (Reason: Pain) Cough Drops See Rx Instructions .ROUTE .COMPLEX Rx Instructions: may keep at bedside prn Systane (propylene glycol) 0.4-0.3 % Drops 1 drp ophthalmic (eye) TID Rx Instructions: both eyes Vitamin C 500 mg Tablet,Chewable 2,000 mg PO DAILY@12 fluoxetine 10 mg capsule 10 mg PO DAILY@12 Rx Instructions: with 20mg cap Tussin DM Cough and Chest 5-100 mg/5 mL liquid 10 ml PO BID PRN (Reason: Cough) Citracal plus D 250 mg-5 mcg (200 unit) Tablet 1 tab PO DAILY@08 Dilantin Infatabs 50 mg tablet,chewable 50 mg PO TID@08,14,20 amlodipine 5 mg tablet 5 mg PO DAILY@08 diazepam 5-7.5-10 mg kit See Rx Instructions .ROUTE .COMPLEX Rx Instructions: apply gel rectally prn for prolonged seizures > than 35 mins Discharge Orders: Discharge Order (Routine); Ordered 06/06/22 Ordered By: Isamar Naranjo Other Ambulatory Orders: DME: Oxygen (Order) Location: None Selected Ordered By: Isamar Naranjo Referrals: Marilyn Trivedi APN [Primary Care Provider] - 06/12/22 2:20 pm Patient Instructions: Benzonatate (By mouth), Amlodipine (By mouth), Using Oxygen at Home (GEN), Hypoxia (GEN), Opioid Safety Activity Restrictions/Additional Instructions: APPOINTMENT WITH [facility] [phone] ROSARIO ON JULY 26 AT 11:30. Discharge Attestations Time Spent in Discharge Care*: greater than 30 min Quality Metrics Clinical Quality Measures [ No reported AMI, CVA or VTE this stay] Coding Level of Care Code Acute Chg FW DC note Diagnoses Pneumonia J18.9 UTI (urinary tract infection) N39.0 Seizure R56.9 Hypoxia R09.02 Rheumatoid arthritis M06.9
[2022-06-08 10:05] LABS: Lacosamie (Vimpat) 7.2 mcg/mL
== END 2022-06-06 16:00 | disposition home or self-care (01) | DRG 871 ==
LOC: ER 15:17 → MEDSURG 16:35 → ICU 06-02 00:14 → MEDSURG 06-05 13:21
PROVIDERS: Internal Medicine; Admitting Provider Internal Medicine; Emergency Provider Family Medicine; PCP Nurse Practitioner Family; Visit Provider Student in an Organized Health Care Education/Training Program
DX: A41.9 Sepsis, unspecified organism (principal); G93.41 Metabolic encephalopathy; J69.0 Pneumonitis due to inhalation of food and vomit; R65.21 Severe sepsis with septic shock; N39.0 Urinary tract infection, site not specified; B96.5 Pseudomonas (aeruginosa) (mallei) (pseudomallei) as the cause of diseases classified elsewhere; Z96.0 Presence of urogenital implants; M06.9 Rheumatoid arthritis, unspecified; Z87.820 Personal history of traumatic brain injury; G40.409 Other generalized epilepsy and epileptic syndromes, not intractable, without status epilepticus; Z96.82 Presence of neurostimulator; Z87.440 Personal history of urinary (tract) infections; I95.9 Hypotension, unspecified; R13.10 Dysphagia, unspecified; I10 Essential (primary) hypertension; Z79.52 Long term (current) use of systemic steroids; Z79.51 Long term (current) use of inhaled steroids; Z66 Do not resuscitate; Z91.199 Patient's noncompliance with other medical treatment and regimen due to unspecified reason
CPT/HCPCS: 36415; 36416; 36600; 51702; 70450; 71045; 71250; 74176; 80051; 80053; 80177; 80185; 80299; 81001; 82330; 82533; 82803; 82805; 82962; 83605; 83735; 83880; 84100; 84132; 84145; 84484; 85025; 87040; 87077; 87086; 87186; 87426; 87804; 92507; 92526; 92610; 93005; 93306; 94640; 94760; 96365; 96367; 96372; 96375; 99285; C9254; J0456; J0696; J1165; J1450; J1650; J1720; J1940; J1953; J2020; J2060; J2250; J2405; J2543; J3370; J3480; J3490; J7030; J7050; J7060; J7512; P9047

== ENCOUNTER 2022-06-07 14:19 | Observation (INO) | payer MEDICARE, MEDICAID, SELFPAY ==
[2022-06-07] VITALS (14 sets, daily range): BP systolic 126–166; BP diastolic 74–100; PULSE 59–86; RESP 15–25; TEMP 36.4–36.6; O2SAT 93–96
--- NOTE | 2022-06-07 14:55 | XRR_ITS ---
PROCEDURE INFORMATION: Exam: XR Chest Exam date and time: 06/07/2022 3:08 PM Age: 66 years old Clinical indication: Dyspnea; Additional info: Dyspnea; Recent pneumonia TECHNIQUE: Imaging protocol: Radiologic exam of the chest. Views: 1 view. COMPARISON: [place] [id number] 06/02/2022 5:43 AM FINDINGS: Lungs: Left lower lobe interstitial congestion. No consolidation. Low lung volumes Pleural spaces: Left lower lobe opacity possible pleural effusion. No pneumothorax. Heart/Mediastinum: Unremarkable. No cardiomegaly. Bones/joints: Unremarkable. Electronic device is seen in the left anterior chest XR/XR chest 1V portable [id number] IMPRESSION: 1. Low lung volumes seen. 2. Left lower lobe interstitial congestion. 3. Left lower lobe opacity possible pleural effusion 4. Electronic device left anterior chest.
--- NOTE | 2022-06-07 14:58 | ED_ITS ---
HPI - Altered Mental Status General: Chief Complaint: Altered Mental Status Stated Complaint: DECREASED LOC Time Seen by Provider: 06/07/22 14:30 Source: family and other (Casing Running Machine Tender) Mode of arrival: EMS Limitations: altered mental status and other (Patient unable give any history.) History of Present Illness: See nursing assessment. Patient with decreased mental status that has worsened since yesterday. Patient reportedly released from the hospital yesterday after she was hospitalized for a few days for sepsis from Pseudomonas urinary tract infection and also diagnosis of pneumonia. Reportedly patient had altered mental status yesterday when patient was released from the hospital. Casing Running Machine Tender and parents did not feel like patient should have been released yesterday. Patient was less responsive today would not eat or drink. Patient would not respond to cold stimuli. Patient is just moans and groans today. She normally is able to talk a little bit and piece words together. Patient has developmental delay and is confined to a wheelchair normally. Patient is in a assisted living situation now. Casing Running Machine Tender states that no fever was noticed. No nausea vomiting or diarrhea today. Patient with just decreased mental status and alertness. Patient does have a history of seizures with last seizure on Saturday or . No noticed seizure today. Review of Systems General: Reports: ROS unobtainable due to mental status Const: Denies: fever(s) or chills Eyes: Denies: change in vision ENMT: Denies: throat pain Card: Denies: chest pain or palpitations Resp: Denies: dyspnea or wheezing GI: Denies: abdominal pain, nausea or vomiting : Denies: flank pain Musc: Denies: neck pain or back pain Skin/Breast: Denies: rash or pruritus Neuro: Denies: headache(s) or numbness in extremities Psych: Denies: anxiety Cristopher/Lymph: Denies: enlarged lymph nodes PFSH ED PFSH: Medical History Brain injury Encephalopathy chronic Epilepsy Generalized epilepsy Rheumatoid arthritis Seizures Urinary retention Surgical History History of craniotomy Family History Other No pertinent family history Social History Smoking and tobacco status: never smoked History of recent travel: No Physical Exam Narrative: Patient lethargic. Patient does open her eyes. She does moan a little bit. Unclear speech. Const: EXAM LIMITATIONS: altered mental status GENERAL APPEARANCE: lethargic ORIENTATION/CONSCIOUSNESS: Yes lethargic OTHER: Oxygen saturation 97% on 1 L by nasal cannula. HENMT: COMMON NORMALS: normocephalic, atraumatic and moist oral mucous membranes HEAD & SCALP: normocephalic and atraumatic Eye: COMMON NORMALS: Equal, round and reactive pupils present PUPIL: Yes Equal, round and reactive pupils present Neck/C-Spine: COMMON NORMALS: full ROM, no lymphadenopathy, supple, no meningeal signs and no JVD Lymph: LYMPHATIC: no lymphadenopathy noted Chest: COMMONS NORMALS: normal inspection of the chest CHEST: No crepitus Resp: COMMON NORMALS: normal respiratory effort AUSCULTATION: rales bilateral at the base and no wheezes Cardio: COMMON NORMALS: no JVD, regular rate and regular rhythm RATE: regular rate RHYTHM: regular rhythm GI: COMMON NORMALS: Normal to inspection, nondistended, normoactive bowel sounds present, Soft to palpation, non-tender, No hepatosplenomegaly present, no masses and no bruits PALPATION: Yes Soft to palpation and Yes No hepatosplenomegaly present : COMMON NORMALS: Yes no CVA tenderness BLADDER/KIDNEY EXAM: Yes no CVA tenderness Back/Pelvis: COMMON NORMALS: no CVA tenderness Extremity: NARRATIVE EXTREMITY EXAM: No clubbing cyanosis or edema. Peripheral pulses are normal. Capillary refill normal. OTHER: Right clubfoot Neuro: SENSORIUM/ORIENTATION: Yes lethargic MENINGEAL SIGNS: Yes no meningeal signs OTHER: Patient is normally not ambulatory. Patient has limited mental capabilities normally. Psych: ATTENTION/CONCENTRATION: Yes attention grossly impaired Skin: COMMON NORMALS: no rashes or lesions noted GENERAL SKIN EXAM: no rashes or lesions noted Course Vital Signs: Vital signs: Vital Signs Temperature 97.6 F 06/07/22 14:28 Pulse Rate 86 06/07/22 14:28 Respiratory Rate 22 H 06/07/22 14:28 Blood Pressure 126/74 06/07/22 14:28 Pulse Oximetry 95 06/07/22 14:28 Oxygen Delivery Me thod 06/07/22 14:28 Oxygen Flow Rate 1 06/07/22 14:28 MDM - Altered Mental Status Medical Decision Making Altered mental status. Possibly postictal. Possible sepsis. Discussed with hospitalist Dr. Naranjo that took care of patient yesterday. She is not up to the next admission and asked that the next hospitalist take care of the patient. I did discuss case with Dr. Bettencourt. He will observe the patient in the hospital. Lab Data 06/07/22 14:35 06/07/22 14:35 Radiology Impressions Chest X-Ray 06/07/22 14:55 IMPRESSION: 1. Low lung volumes seen. 2. Left lower lobe interstitial congestion. 3. Left lower lobe opacity possible pleural effusion 4. Electronic device left anterior chest. Head CT 06/07/22 15:05 IMPRESSION: 1. No evidence of intracranial hemorrhage or mass effect. 2. No acute intracranial findings. 3. Areas of chronic encephalomalacia and craniotomy are unchanged. Laboratory Results WBC 7.6 10^3/uL (4.0-10.0) 06/07/22 14:35 RBC 3.78 10^6/uL (4.1-5.3) L 06/07/22 14:35 Hgb 11.8 g/dL (11.5-15.3) 06/07/22 14:35 Hct 37.5 % (37.0-47.0) 06/07/22 14:35 MCV 99.2 fl (81-99) H 06/07/22 14:35 MCH 31.2 pg (28.0-34.0) 06/07/22 14:35 MCHC 31.5 g/dL (30.0-36.0) 06/07/22 14:35 RDW 13.3 % (12.1-15.1) 06/07/22 14:35 Plt Count 292 10^3/cmm (130-400) 06/07/22 14:35 MPV 9.5 fL (7.4-10.4) 06/07/22 14:35 Neut % (Auto) 59.2 % 06/07/22 14:35 Lymph % (Auto) 25.3 % 06/07/22 14:35 Liberty % (Auto) 7.9 % 06/07/22 14:35 Eos % (Auto) 6.1 % 06/07/22 14:35 Baso % (Auto) 0.4 % 06/07/22 14:35 Neut # (Auto) 4.51 10^3/uL (1.8-7.7) 06/07/22 14:35 Lymph # (Auto) 1.9 10^3/uL (0.8-4.8) 06/07/22 14:35 Liberty # (Auto) 0.6 10^3/uL (0.2-0.9) 06/07/22 14:35 Eos # (Auto) 0.5 10^3/uL (0.0-0.8) 06/07/22 14:35 Baso # (Auto) 0.0 10^3/uL (0.0-0.1) 06/07/22 14:35 Nucleated RBC % (auto) 0 % 06/07/22 14:35 Nucleated RBCs # 0.0 /100WBC 06/07/22 14:35 Specimen Type Arterial 06/07/22 15:00 Sample Site Radial, left 06/07/22 15:00 ABG pH 7.44 (7.35-7.45) 06/07/22 15:00 ABG pCO2 39.9 mmHg (35-45) 06/07/22 15:00 ABG pO2 68.2 mmHg (80.0-100.0) L 06/07/22 15:00 ABG HCO3 26.8 mmol/L (22-26) H 06/07/22 15:00 ABG O2 Saturation 93.1 06/07/22 15:00 ABG Base Excess 2.4 mmol/L (-2.0-2.0) H 06/07/22 15:00 Gustavo Test Pos 06/07/22 15:00 A-a O2 Gradient 4.2 mmHg (5-10) L 06/07/22 15:00 Hematocrit 37.4 % (37-47) 06/07/22 15:00 Hgb O2 Saturation 92.2 % (95-100) L 06/07/22 15:00 Carboxyhemoglobin 0.4 %THgb (0.4-20.1) 06/07/22 15:00 Methemoglobin 0.6 % (0.4-1.5) 06/07/22 15:00 Total Hemoglobin 12.2 g/dL (12-16) 06/07/22 15:00 Sodium 140.0 mmol/L (131-143) 06/07/22 15:00 Potassium 3.6 mmol/L (3.5-5.0) 06/07/22 15:00 Glucose 134.0 mg/dL (70-115) H 06/07/22 15:00 Ionized Calcium 1.3 mmol/L (1.1-1.4) 06/07/22 15:00 O2 Delivery Device Room air 06/07/22 15:00 FiO2 21.0 % 06/07/22 15:00 Cake Puller ID Cak 06/07/22 15:00 Sodium 143 mmol/L (136-145) 06/07/22 14:35 Potassium 3.6 mmol/L (3.5-5.1) 06/07/22 14:35 Chloride 108 mmol/L (98-107) H 06/07/22 14:35 Carbon Dioxide 27 mmol/L (22-29) 06/07/22 14:35 Anion Gap 11.6 (5-19) 06/07/22 14:35 BUN 6 mg/dL (8-23) L 06/07/22 14:35 Creatinine 0.4 mg/dL (0.5-0.9) L 06/07/22 14:35 GFR Calculation 159.2 mL/min (90-130) H 06/07/22 14:35 Glucose 114 mg/dL (65-115) 06/07/22 14:35 Calculated Osmolality 294 mOsm/kg (285-295) 06/07/22 14:35 Lactic Acid 1.8 mmol/L (0.5-2.2) 06/07/22 14:35 Calcium 8.6 mg/dL (8.5-10.5) 06/07/22 14:35 Total Bilirubin 0.2 mg/dL (0.15-1.2) 06/07/22 14:35 AST 22 U/L (0-32) 06/07/22 14:35 ALT 54 U/L (0-33) H 06/07/22 14:35 Alkaline Phosphatase 86 U/L (35-105) 06/07/22 14:35 Troponin T Baseline 25 ng/L (0-10) H 06/07/22 14:35 Troponin T 120 Minute 25.14 ng/L (0-10) H 06/07/22 16:46 Delta Troponin T 0.14 ABS# (0-10) 06/07/22 16:46 NT-Pro-B Natriuret Pep 735 pg/mL (0-125) H 06/07/22 14:35 Total Protein 6.1 g/dL (6.6-8.7) L 06/07/22 14:35 Albumin 3.3 g/dL (3.5-5.2) L 06/07/22 14:35 Globulin 2.8 g/dL (1.3-4.6) 06/07/22 14:35 TSH 0.55 uIU/mL (0.27-4.20) 06/07/22 14:35 Urine Color Yellow (Yellow) 06/07/22 14:36 Urine Appearance Clear (CLEAR) 06/07/22 14:36 Urine pH 8 (5-7) H 06/07/22 14:36 Ur Specific Jen[place] 1.015 (1.005-1.030) 06/07/22 14:36 Urine Protein Neg (Negative) 06/07/22 14:36 Urine Glucose (UA) Norm (Normal) 06/07/22 14:36 Urine Ketones Negative (Negative) 06/07/22 14:36 Urine Blood Neg (Negative) 06/07/22 14:36 Urine Nitrate Negative (Negative) 06/07/22 14:36 Urine Bilirubin Neg (Negative) 06/07/22 14:36 Prot Sulfosalicylic Acd Negative (Negative) 06/07/22 14:36 Urine Urobilinogen Neg mg/dL (Negative) 06/07/22 14:36 Ur Leukocyte Esterase Negative (Negative) 06/07/22 14:36 Urine RBC None /hpf (0-2) 06/07/22 14:36 Urine WBC None /hpf (0-5) 06/07/22 14:36 Ur Squamous Epith Cells None /hpf (0-5) 06/07/22 14:36 Amorphous Sediment 1+ /hpf 06/07/22 14:36 Urine Bacteria None /hpf (NONE) 06/07/22 14:36 Imaging Data CXR: My impression: Patient is rotated. Patient has bilateral infiltrates slightly worse on the left from 06/01/2022 x-ray. Questionable pulmonary edema bilaterally. Radiologist's impression: PROCEDURE INFORMATION: Exam: XR Chest Exam date and time: 06/07/2022 3:08 PM Age: 66 years old Clinical indication: Dyspnea; Additional info: Dyspnea; Recent pneumonia TECHNIQUE: Imaging protocol: Radiologic exam of the chest. Views: 1 view. COMPARISON[place] [id number] 06/02/2022 5:43 AM FINDINGS: Lungs:? Left lower lobe interstitial congestion.? No consolidation.? Low lung volumes Pleural spaces:? Left lower lobe opacity possible pleural effusion. No pneumothorax. Heart/Mediastinum: Unremarkable. No cardiomegaly. Bones/joints: Unremarkable. Electronic device is seen in the left anterior chest XR/XR chest 1V portable [id number] IMPRESSION: 1. Low lung volumes seen. 2. Left lower lobe interstitial congestion.? 3. Left lower lobe opacity possible pleural effusion? 4. Electronic device left anterior chest. ? Dictated By: Flakito Da Silva Signed By: Flakito Da Silva Signed Date/Time: 06/07/[address] Head: Radiologist's impression: Ordering Provider/Ordering MD: Colby Bundy MD Date of Service: 06/07/22 Procedure(s): CT head wo con* [id number] Accession Number(s): [id number] Report Number: [id number] WS: [id number] CT HEAD TECHNIQUE: Noncontrast CT of the head obtained from the skullbase to the vertex. CLINICAL INFORMATION: Altered mental status.? History of seizure disorder COMPARISON: June 02, 2022 DLP: 1068.[address] scans at [facility] use at least one of these dose optimization techniques: automated exposure control; mA and/or kV adjustment per patient size (includes targeted exams where dose is matched to clinical indication); or iterative reconstruction. FINDINGS: No evidence of intracranial hemorrhage or mass effect. Ventricular system and basal cisterns are patent. Exvacuo dilatation LEFT lateral ventricle. Marked cerebellar atrophy with vermian atrophy. Intracranial vascular calcification. Prior postoperative changes LEFT frontal parietal craniotomies. Chronic encepha lomalacia involving the LEFT inferior frontal and LEFT anterior temporal lobes and LEFT MCA territories. Associated cystic encephalomalacia. Vascular calcification. Paranasal sinuses and mastoid air cells well aerated. CT/CT head wo con* [id number] IMPRESSION: ? 1.? No evidence of intracranial hemorrhage or mass effect. 2.? No acute intracranial findings. 3.? Areas of chronic encephalomalacia and craniotomy are unchanged. ? Dictated By: Kyler Ramsey MD Signed By: Kyler Ramsey MD Signed Date/Time: 06/07/22 1616 EKG Data EKG 1: I personally reviewed and interpreted this EKG as follows: EKG interpretation date: 06/07/22 EKG interpretation time: 15:35 Interpretation: EKG shows normal sinus rhythm heart rate 60. Normal VT interval, normal QT interval. Normal P waves, normal T waves. Normal ST segment. Normal QRS. Normal axis. Normal EKG. Discharge Plan Discharge Patient Disposition: Placed in Observation Clinical Impression: Altered mental status Qualifiers: Altered mental status type: transient alteration of awareness Qualified Code(s): R40.4 - Transient alteration of awareness Coding Level of Care Code ED City Carrier for Chg Fwd History Comprehensive Exam Comprehensive Medical Decision Making Moderate Complexity
--- NOTE | 2022-06-07 15:05 | CT_ITS ---
WS: [id number] CT HEAD TECHNIQUE: Noncontrast CT of the head obtained from the skullbase to the vertex. CLINICAL INFORMATION: Altered mental status. History of seizure disorder COMPARISON: June 02, 2022 DLP: 1068.[address] scans at [facility] use at least one of these dose optimization techniques: automated e xposure control; mA and/or kV adjustment per patient size (includes targeted exams where dose is matc hed to clinical indication); or iterative reconstruction. FINDINGS: No evidence of intracranial hemorrhage or mass effect. Ventricular system and basal cisterns are potter nt. Exvacuo dilatation LEFT lateral ventricle. Marked cerebellar atrophy with vermian atrophy. Intrac ranial vascular calcification. Prior postoperative changes LEFT frontal parietal craniotomies. Chroni c encephalomalacia involving the LEFT inferior frontal and LEFT anterior temporal lobes and LEFT MCA territories. Associated cystic encephalomalacia. Vascular calcification. Paranasal sinuses and mastoid air cells well aerated. CT/CT head wo con* [id number] IMPRESSION: 1. No evidence of intracranial hemorrhage or mass effect. 2. No acute intracranial findings. 3. Areas of chronic encephalomalacia and craniotomy are unchanged.
[2022-06-07 15:07] LABS: Basophils % 0.4 %; Eosinophils # 0.5 10^3/uL (0.0-0.8); Eosinophils % 6.1 %; Hematocrit 37.5 % (37.0-47.0); Hemoglobin 11.8 g/dL (11.5-15.3); Lymphocytes # 1.9 10^3/uL (0.8-4.8); Lymphocytes % 25.3 %; Mean Corpuscular HGB Conc 31.5 g/dL (30.0-36.0); Mean Corpuscular Hemoglobin 31.2 pg (28.0-34.0); Mean Corpuscular Volume 99.2 fl (81-99); Mean Platelet Volume 9.5 fL (7.4-10.4); Monocytes # 0.6 10^3/uL (0.2-0.9); Monocytes % 7.9 %; Neutrophils # 4.51 10^3/uL (1.8-7.7); Neutrophils % 59.2 %; Nucleated Red Blood Cells % 0 %; Platelet Count 292 10^3/cmm (130-400); Red Blood Count 3.78 10^6/uL (4.1-5.3); Red Cell Distribution Width 13.3 % (12.1-15.1); White Blood Count 7.6 10^3/uL (4.0-10.0)
[2022-06-07 15:11] LABS: ABG PCO2 39.9 mmHg (35-45); ABG PH Result 7.44 (7.35-7.45); Alveolar-Arterial Oxygen Gradi 4.2 mmHg (5-10); Arterial Blood Gas Hematocrit 37.4 % (37-47); Base Excess ABG 2.4 mmol/L (-2.0-2.0); Blood Gas Allen Test Pos; Blood Gas Operator Identificat CAK; Blood Gas Sample Site Radial, left; Blood Gas Sample Type Arterial; Carboxyhemoglobin 0.4 %THgb (0.4-20.1); HCO3 ABG 26.8 mmol/L (22-26); HGB O2 Sat 92.2 % (95-100); Ionized Calcium Level - ABG 1.3 mmol/L (1.1-1.4); Methemoglobin 0.6 % (0.4-1.5); Oxygen Device ROOM AIR; Oxygen Saturation ABG 93.1; PO2 ABG 68.2 mmHg (80.0-100.0); Potassium Level - ABG 3.6 mmol/L (3.5-5.0); Total Hemoglobin 12.2 g/dL (12-16)
[2022-06-07 15:21] LABS: Alanine Aminotransferase 54 U/L (0-33); Albumin Level 3.3 g/dL (3.5-5.2); Alkaline Phosphatase 86 U/L (35-105); Anion Gap 11.6 (5-19); Aspartate Amino Transferase 22 U/L (0-32); Blood Urea Nitrogen 6 mg/dL (8-23); Calcium 8.6 mg/dL (8.5-10.5); Carbon Dioxide 27 mmol/L (22-29); Chloride 108 mmol/L (98-107); Globulin 2.8 g/dL (1.3-4.6); Glomerular Filtration Rate 159.2 mL/min (90-130); Glucose 114 mg/dL (65-115); Osmolality Calculated 294 mOsm/kg (285-295); Potassium 3.6 mmol/L (3.5-5.1); Sodium 143 mmol/L (136-145); Total Bilirubin 0.2 mg/dL (0.15-1.2); Total Protein 6.1 g/dL (6.6-8.7)
[2022-06-07 15:22] LABS: Lactic Sepsis W/Reflex 1.8 mmol/L (0.5-2.2)
[2022-06-07 15:24] LABS: Troponin(5th) Baseline 25 ng/L (0-10)
--- NOTE | 2022-06-07 15:33 | ECG_ITS ---
[facility] Test Date: 2022-06-07 Pat Name: Dasia Brian Department: Room: Gender: Female Spray Gun Sizer: : 1955 Requested By: Colby Garcia Order Number: [id number] Cristian MD: Florida Rivera M.D. Measurements Intervals [place] Rate: 60 P: 3 AK: 161 QRS: 25 QRSD: 75 T: 46 QT: 430 QTc: 431 Interpretive Statements SINUS RHYTHM Compared to ECG 06/06/2022 13:47:45 No significant changes Electronically Signed On 06-07-2022 20:44:06 TYPE CASTER by Florida Rivera M.D. [id number]
[2022-06-07 15:59] LABS: Bilirubin Urine Neg (Negative); Blood Urine Neg (Negative); Glucose Urine UA Norm (Normal); Ketones Urine Negative (Negative); Leukocyte Esterase Urine Negative (Negative); Nitrate Urine Negative (Negative); Protein Urine Neg (Negative); Specific Gravity, Urine 1.015 (1.005-1.030); Sulfosalicylic Acid Urine Negative (Negative); Urine Appearance Clear (CLEAR); Urine Color Yellow (Yellow); Urobilinogen Urine Neg (Negative); pH Urine 8 (5-7)
[2022-06-07 16:00] LABS: Add Urine Culture? No; Amorphous Sediment Urine 1+ /hpf
--- NOTE | 2022-06-07 16:02 | PC.PHAR ---
pt is from [facility]-casey vogel pt is taking her new directions on the medications she was discharged with- cipro 500mg q12h was written on 06/06/22 medication not on pts mar
--- NOTE | 2022-06-07 16:18 | PC.NURSE ---
PT PLACED ON CONTINUOUS NIBP, SPO2, AND CM
[2022-06-07 16:52] LABS: NT Pro B Type Natriuretic Pept 735 pg/mL (0-125); Thyroid Stimulating Hormone 0.55 uIU/mL (0.27-4.20)
[2022-06-07] MEDS: sodium chloride 0.9% 1,000 ML 500 ML IV (17:04)
--- NOTE | 2022-06-07 17:10 | ECG_ITS ---
[facility] Test Date: 2022-06-07 Pat Name: Dasia Brian Department: Room: Gender: Female Thread Checker: : 1955 Requested By: Colby Garcia Order Number: [id number] Cristian MD: Florida Rivera M.D. Measurements Intervals [place] Rate: 65 P: -6 WI: 141 QRS: 36 QRSD: 83 T: 48 QT: 429 QTc: 447 Interpretive Statements SINUS RHYTHM Compared to ECG 06/07/2022 15:33:[address] changes, may suggest early repolarization No significant changes Electronically Signed On 06-07-2022 20:51:07 PROJECT SCIENTIST by Florida Rivera M.D. [id number]
[2022-06-07 17:26] LABS: Troponin 5 2HR 25.14 ng/L (0-10)
[2022-06-07 17:27] LABS: Troponin 5 2HR Delta 0.14 ABS# (0-10)
--- NOTE | 2022-06-07 18:33 | PM.HP ---
Providers/Chief Complaint Primary Care Provider: Marilyn Trivedi APN Chief Complaint: DECREASED LOC History of Present Illness Dasia Brian is a 66 year old female, who presented to the hospital for altered mental status. She was discharged yesterday. As per the caregiver she was not arousable today prompted her visit to the ER. In the ER CBC, BMP, ABG unremarkable. CT head is unremarkable no signs of UTI. Patient is arousable to verbal command and painful stimuli however she is not able to talk As per the nursing staff she will make gestures to make her needs known she does look lethargic and fatigued. Previously stated. Notes recommended n.p.o. status because of overt signs of aspiration. I will talk with family to get more details whether they would opt for feeding tube versus artificial nutrition. She does carry a guarded prognosis. Sinus rhythm. Review of Systems General: Reports: ROS unobtainable due to medical condition Medications/Allergies Home Medications Medication Instructions Recorded Confirmed Last Taken Type acetaminophen 325 mg capsule 325 mg PO Q4H PRN Pain 11/25/19 06/07/22 03/09/22 History (Tylenol) alprazolam 0.25 mg tablet (Xanax) 0.25 mg PO Q4H PRN Seizures 11/25/19 06/07/22 Unknown History lasting over 10 mins calcium carbonate 200 mg calcium 200 mg PO DAILY PRN Heartburn 11/25/19 06/07/22 Unknown History (500 mg) chewable tablet (Tums) cholecalciferol (vitamin D3) 1,250 50,000 unit PO Q7D 11/25/19 06/07/22 Unknown History mcg (50,000 unit) capsule docusate sodium 100 mg capsule 100 mg PO BEDTIME PRN Constipation 11/25/19 06/07/22 Unknown History (Colace) fluticasone propionate 220 1 inh inhalation BID@11/25/19 06/07/22 06/01/22 History mcg/actuation HFA aerosol inhaler (Flovent HFA) fluticasone propionate 50 1 spray intranasal DAILY@11/25/19 06/07/22 06/01/22 History mcg/actuation nasal spray,suspension (Flonase Allergy Relief) folic acid 1 mg tablet 1 mg PO DAILY@11/25/19 06/07/22 06/01/22 History lacosamide 150 mg tablet (Vimpat) 150 mg PO BID@11/25/19 06/07/22 06/01/22 History montelukast 10 mg tablet 10 mg PO DAILY@11/25/19 06/07/22 06/01/22 History (Singulair) multivitamin 1 tab PO DAILY@11/25/19 06/07/22 06/01/22 History pantoprazole 40 mg tablet,delayed 40 mg PO DAILY@11/25/19 06/07/22 06/01/22 History release (Protonix) phenazopyridine 95 mg tablet (Azo 190 mg PO TID PRN Bladder Spasms 11/25/19 06/07/22 Unknown History Urinary Pain Relief) polyethylene glycol 3350 17 8.5 gm PO DAILY@11/25/19 06/07/22 06/01/22 History gram/dose oral powder (Miralax) prednisone 2.5 mg tablet 2.5 mg PO DAILY@11/25/19 06/07/22 06/01/22 History simethicone 125 mg capsule (Gas-X 125 mg PO Q8H PRN Stomach Upset 11/25/19 06/07/22 Unknown History Extra Strength) sucralfate 1 gram tablet (Carafate) 1 gm PO BID@11/25/19 06/07/22 06/01/22 History tamsulosin 0.4 mg capsule (Flomax) 0.4 mg PO BID@11/25/19 06/07/22 06/01/22 History zonisamide 100 mg capsule 100 mg PO BID@11/25/19 06/07/22 06/01/22 History (Zonegran) Black Steiner 1 tab PO BID@10/15/21 06/07/22 03/09/22 History Cbd Oil 0.5 ml PO DAILY@10/15/21 06/07/22 06/01/22 History Lactobacillus acidophilus 1 tab PO DAILY@10/15/21 06/07/22 06/01/22 History (Acidophilus chewable tablet) albuterol sulfate 90 mcg/actuation 2 puff inhalation QID PRN 10/15/21 06/07/22 03/08/22 History aerosol inhaler Shortness Of Breath clotrimazole 1 % topical cream See Rx Instructions .Route .COMPLEX 10/15/21 06/07/22 Unknown History cyanocobalamin (vitamin B-12) 500 500 mcg PO DAILY@10/15/21 06/07/22 05/31/22 History mcg tablet diclofenac sodium 1 % topical gel 4 g topical QID PRN Pain 10/15/21 06/07/22 Unknown History fluoxetine 20 mg tablet 20 mg PO DAILY@10/15/21 06/07/22 05/31/22 History food supplemt, lactose-reduced 1 ea PO TID@09,13,19 10/15/21 06/07/22 06/01/22 History (Nutritional Drink oral liquid) scopolamine base 1 mg over 3 days 1 patch transdermal Q3D 10/15/21 06/07/22 10/15/21 History transdermal patch (Transderm-Scop) triamcinolone acetonide 0.1 % 1 applic topical BID PRN Rash 10/15/21 06/07/22 Unknown History topical cream vitamin B complex 1 tab PO DAILY@10/15/21 06/07/22 05/31/22 History nitrofurantoin macrocrystal 100 mg 100 mg PO BEDTIME@20 03/09/22 06/07/22 06/06/22 History capsule (Macrodantin) ondansetron HCl 4 mg tablet 4 mg PO Q4H PRN Nausea And Vomiting 03/09/22 06/07/22 Unknown History famotidine 20 mg tablet 20 mg PO BID@08,20 06/01/22 06/07/22 06/01/22 History nasal dilators (Breathe Right 06/01/22 06/07/22 Unknown History strips) benzonatate 100 mg capsule 100 mg PO TID PRN Cough 10 days 06/06/22 06/07/22 Unknown Rx #30 caps ciprofloxacin HCl 500 mg tablet 500 mg PO Q12H 2 days #4 tabs 06/06/22 06/07/22 Unknown Rx (Cipro) levetiracetam 500 mg tablet 1,000 mg PO BID 30 days #60 tabs 06/06/22 06/07/22 06/07/22 Rx Cough Drops See Rx Instructions .Route .COMPLEX 06/07/22 06/07/22 Unknown History acetaminophen 300 mg-codeine 30 mg 1 tab PO Q4H PRN Pain 06/07/22 06/07/22 Unknown History tablet amlodipine 5 mg tablet 5 mg PO DAILY@08 06/07/22 06/07/22 06/07/22 History ascorbic acid (vitamin C) 500 mg 2,000 mg PO DAILY@12 06/07/22 06/07/22 Unknown History chewable tablet (Vitamin C) calcium citrate 250 mg 1 tab PO DAILY@08 06/07/22 06/07/22 Unknown History calcium-vitamin D3 5 mcg (200 unit) tablet dextromethorphan-guaifenesin 5 10 ml PO BID PRN Cough 06/07/22 06/07/22 Unknown History mg-100 mg/5 mL oral liquid (Tussin DM Cough and Chest) diazepam 5 mg-7.5 mg-10 mg rectal See Rx Instructions .Route .COMPLEX 06/07/22 06/07/22 Unknown History kit fluoxetine 10 mg capsule 10 mg PO DAILY@12 06/07/22 06/07/22 Unknown History peg 400-propylene glycol 0.4 %-0.3 1 drp ophthalmic (eye) TID 06/07/22 06/07/22 Unknown History % eye drops (Systane (propylene glycol)) phenytoin 50 mg chewable tablet 50 mg PO TID@08,14,20 06/07/22 06/07/22 Unknown History (Dilantin Infatabs) Allergies Allergy/AdvReac Type Severity Reaction Status Date / Time aspirin Allergy Unknown Verified 06/01/22 15:01 Influenza Virus Vaccines Allergy Unknown Verified 06/01/22 15:01 levofloxacin [From Levaquin] Allergy ALGY-Hives Verified 06/02/22 09:29 vancomycin Allergy ALGY-Hives Verified 06/02/22 09:29 PFSH Acute PFSH: Medical History Brain injury Encephalopathy chronic Epilepsy Generalized epilepsy Rheumatoid arthritis Seizures Urinary retention Surgical History History of craniotomy Family History Other No pertinent family history Social History Smoking and tobacco status: never smoked History of recent travel: No Vitals/I&O/Wt Last Vital Signs Temp 97.6 F 06/07/22 14:28 Pulse 66 06/07/22 18:00 Resp 15 06/07/22 18:00 BP 164/97 06/07/22 18:00 Pulse Ox 95 06/07/22 18:00 O2 Del Method 06/07/22 14:28 O2 Flow Rate 1 06/07/22 14:28 Weight last 48 hrs Weight 38.555 kg Physical Exam Narrative: Patient has spastic quadriparesis Not able to communicate Hard to open eyes and looks at you but would not be able to reciprocate Val[place] catheter with concentrated urine Hemodynamic stable Afebrile No signs of stroke or meningitis Abdomen soft No audible stridor or wheezing Variable S1-S2 Urinary Catheter Management: [place]: Cath Placed During This Visit: yes Reason for Continuing Indwelling Catheter: Other Urinary Catheter Date of Insertion: 06/07/22 Urinary Catheter Time of Insertion: 15:33 Data 06/07/22 14:35 06/07/22 14:35 Micro: Microbiology 06/07/22 16:51 Blood Culture - Preliminary Blood SPECIMEN COLLECTED 06/07/22 16:46 Blood Culture - Preliminary Blood SPECIMEN COLLECTED A&P Assessment and plan (1) Altered mental status: Qualifiers: Altered mental status type: transient alteration of awareness Qualified Code(s): R40.4 - Transient alteration of awareness Plan History of traumatic brain injury, seizure disorder, developmental delay, partial lobectomy frontotemporoparietal lobe status post neurostimulator presented today with chief complaint of altered mental status Metabolic encephalopathy related to underlying multiple comorbid conditions Patient requires 3 to 4 L of oxygen on and off Recent admission, she was discharged yesterday Work-up in the ER is unremarkable She has been admitted as of her worsening of confusion, she was not arousable as per the caregiver She is looking at the examiner but would not reciprocate No fever no signs of meningitis CT head unremarkable She was recently started on ciprofloxacin for UTI I will continue ceftriaxone My biggest concern at this point is guarded prognosis because of poor p.o. intake and because of risk of aspiration DNR/DNI Attestations Medical Necessity Statement*: Continue medical management anticipating discharge within 48 hours Time Spent in Patient Care: 35 Coding Level of Care Code Acute Code for Chg Fwd Diagnoses Altered mental status R40.4 Altered mental status type: transient alteration of awareness
--- NOTE | 2022-06-07 19:00 | PC.NURSE ---
Report from CHRIS Kumar. Pt resting quietly. VSS and documented. family at bedside. Discussed pt care and plan. No further needs at this time.
[2022-06-07] MEDS: heparin 5,000 unit/mL INJ 1 mL 5000 UNIT SUBCUT (19:58)
[2022-06-07 20:39] LABS: Lactic Sepsis W/Reflex 0.7 mmol/L (0.5-2.2)
[2022-06-07 20:41] LABS: Troponin 5 6HR 25.53 ng/L (0-10)
[2022-06-07 20:49] LABS: Procalcitonin 0.22 ng/mL (0-0.5)
--- NOTE | 2022-06-07 20:52 | PC.NURSE ---
Addendum entered by Francie Oquendo RN 06/07/22 21:05: Dr. Bettencourt ordered to hold PO medications at this time. Dr. Joseph notified that some of the PO mediations are important medications, such as antibiotics and seizure medications. Original Note: Unable to complete admission assessment or immunization assessment. Patient is nonverbal and nonresponsive at this time. No family at bedside at this time. Patient is not awake enough to swallow PO medications. They ordered several PO medications for her tonight. She is nonverbal and nonresponsive. Dr. Joseph notified.
[2022-06-07 20:53] LABS: Troponin 5 6HR Delta 0.53 ng/L (0-12)
--- NOTE | 2022-06-07 21:18 | PC.NURSE ---
Addendum entered by Francie Oquendo RN 06/07/22 21:19: Ordered to hold PO medications at this time due to patient not being alert/awake enough to swallow PO. Original Note: Dr. Bettencourt at bedside to see patient. Doctor notified of patient having PO seizure medication ordered, but patient unable to be awoken enough to swallow PO. Patient is currently nonverbal and opens her eyes to touch.
[2022-06-07] MEDS: dextrose 5%-sod chloride 0.45% 1,000 ML 30 ML IV (22:39)
[2022-06-07] MEDS: cefTRIAXone 1,000 MG in sodium chloride 0.9% (plus) 50 ML 100 MG IV (22:39)
[2022-06-08] VITALS (7 sets, daily range): BP systolic 131–173; BP diastolic 75–86; PULSE 67–75; RESP 16–18; TEMP 36.5–36.9; O2SAT 93–94
[2022-06-08 05:09] LABS: Basophils % 0.5 %; Eosinophils # 0.4 10^3/uL (0.0-0.8); Eosinophils % 6.5 %; Hematocrit 39.5 % (37.0-47.0); Hemoglobin 12.7 g/dL (11.5-15.3); Lymphocytes # 1.9 10^3/uL (0.8-4.8); Lymphocytes % 28.6 %; Mean Corpuscular HGB Conc 32.2 g/dL (30.0-36.0); Mean Corpuscular Hemoglobin 31.1 pg (28.0-34.0); Mean Corpuscular Volume 96.8 fl (81-99); Monocytes # 0.5 10^3/uL (0.2-0.9); Monocytes % 7.1 %; Neutrophils # 3.63 10^3/uL (1.8-7.7); Neutrophils % 55.8 %; Nucleated Red Blood Cells % 0 %; Platelet Count 289 10^3/cmm (130-400); Red Blood Count 4.08 10^6/uL (4.1-5.3); Red Cell Distribution Width 13.2 % (12.1-15.1); White Blood Count 6.5 10^3/uL (4.0-10.0)
[2022-06-08 05:41] LABS: Anion Gap 14.4 (5-19); Blood Urea Nitrogen 5 mg/dL (8-23); Carbon Dioxide 23 mmol/L (22-29); Chloride 109 mmol/L (98-107); Glomerular Filtration Rate 159.2 mL/min (90-130); Glucose 115 mg/dL (65-115); Magnesium 1.9 mg/dL (1.7-2.3); Osmolality Calculated 294 mOsm/kg (285-295); Phosphorus 2.7 mg/dL (2.5-4.5); Potassium 3.4 mmol/L (3.5-5.1); Sodium 143 mmol/L (136-145)
--- NOTE | 2022-06-08 10:05 | P.PN_ITS ---
Subjective Subjective: Alert & awake Family at the bedside Family stating that she is is more awake and alert today and this has been the most awake she has been in last few days I want to do another speech evaluation today Had detailed discussion with the mother and the caregiver at the bedside if she is not able to eat anything then we have to look for PEG tube placement, if did not want any aggressive intervention then palliative care would be recommended They want to take 1 more day to decide about Vitals/I&O/Wt Last Vital Signs Temp 97.7 F 06/08/22 08:00 Pulse 69 06/08/22 08:00 Resp 18 06/08/22 08:00 BP 131/78 06/08/22 08:00 Pulse Ox 94 06/08/22 08:00 O2 Del Method 06/08/22 08:00 O2 Flow Rate 1 06/08/22 08:00 FiO2 21 06/07/22 21:37 06/07/22 06/08/22 06/08/22 22:59 06:59 14:59 Intake Total 1050 / 1050 Output Total 1550 / 1550 Balance 1050 / 1050 -1550 / -500 Weight last 48 hrs Weight 38.555 kg Physical Exam Narrative: Patient is able to understand questions Awake and alert Clinically very dehydrated IV fluids running at the bedside Spastic quadriparesis Abdomen soft Lower extremity trace edema Vallecillo catheter in place Dry mucous membranes Patient is currently on room air saturating well Urinary Catheter Management: [place]: Cath Placed During This Visit: yes Reason for Continuing Indwelling Catheter: Accurate Measurement of Urinary Outpu t in Critically Ill Patients Urinary Catheter Date of Insertion: 06/07/22 Urinary Catheter Time of Insertion: 15:33 Data 06/08/22 04:50 06/08/22 04:50 Micro: Microbiology 06/07/22 16:51 Blood Culture - Preliminary Blood SPECIMEN COLLECTED 06/07/22 16:46 Blood Culture - Preliminary Blood SPECIMEN COLLECTED A&P Assessment and plan (1) Altered mental status: Qualifiers: Altered mental status type: transient alteration of awareness Qualified Code(s): R40.4 - Transient alteration of awareness (2) Hypoxia: (3) Seizure: (4) UTI (urinary tract infection): (5) Dehydration: Plan Significant dehydration causing acute delirium Metabolic encephalopathy related to dehydration, improved with IV fluid hydration She is awake and alert able to communicate and gives a thumbs up for feeling better Family is not sure whether they will opt for feeding tube placement/PEG tube. They want to talk with Delphine We will do another speech evaluation today Continue ceftriaxone continue IV fluid hydration If she is at high risk for aspiration for all the consistencies of the fluid then I would recommend PEG tube placement however family is not sure for now We also had discussion regarding palliative care for the future She is DNR/DNI UTI seems to be getting better Attestations Medical Necessity Statement*: Watch 1 more day Time Spent in Patient Care: 30 Coding Level of Care Code Acute Code for Chg Fwd Diagnoses Altered mental status R40.4 Altered mental status type: transient alteration of awareness Hypoxia R09.02 Seizure R56.9 UTI (urinary tract infection) N39.0 Dehydration E86.0
[2022-06-08] MEDS: montelukast sodium 10 mg Tablet PO (10:37)
[2022-06-08] MEDS: folic acid 1 mg Tablet PO (10:37)
[2022-06-08] MEDS: pantoprazole DR 40 mg Tablet PO (10:37)
[2022-06-08] MEDS: sucralfate 1 gm Tablet PO ×2 (10:39→20:33)
[2022-06-08] MEDS: predniSONE 5 mg Tablet 2.5 MG PO (10:39)
[2022-06-08] MEDS: lacosamide 50 mg Tablet 150 MG PO ×2 (10:39→20:33)
[2022-06-08] MEDS: tamsulosin 0.4 mg Capsule PO ×2 (10:39→20:42)
[2022-06-08] MEDS: heparin 5,000 unit/mL INJ 1 mL 5000 UNIT SUBCUT ×2 (10:40→20:34)
[2022-06-08] MEDS: amlodipine 5 mg Tablet PO (10:40)
[2022-06-08] MEDS: famotidine 20 mg Tablet PO ×2 (10:40→20:33)
[2022-06-08] MEDS: levETIRAcetam 500 mg Tablet 1000 MG PO ×2 (10:40→18:08)
[2022-06-08] MEDS: zonisamide 100 MG Capsule PO ×2 (10:40→20:33)
[2022-06-08] MEDS: PHENYTOIN 50 MG 50 EACH PO ×3 (10:42→20:37)
[2022-06-08] MEDS: lidocaine 1% 5 ML in potassium chloride premix 100 ML 26.25 ML IV (10:44)
[2022-06-08] MEDS: b-complex-vitamin c Tablet 1 EACH PO (15:17)
[2022-06-08] MEDS: fluoxetine 20 mg Capsule PO (15:18)
[2022-06-08] MEDS: fluoxetine 10 mg Capsule PO (15:18)
[2022-06-08] MEDS: artificial tears Op Soln 15 mL Btl 1 DROP EYE-BOTH ×2 (15:39→20:36)
[2022-06-08] MEDS: phenazopyridine 100 mg Tablet PO (20:33)
[2022-06-08] MEDS: nitrofurantoin SR (BID) 100 mg Capsule PO (20:33)
[2022-06-08] MEDS: cefTRIAXone 1,000 MG in sodium chloride 0.9% (plus) 50 ML 100 MG IV (22:19)
[2022-06-08] MEDS: dextrose 5%-sod chloride 0.45% 1,000 ML 30 ML IV (22:20)
[2022-06-09] VITALS (7 sets, daily range): BP systolic 108–166; BP diastolic 62–85; PULSE 61–80; RESP 15–18; TEMP 36.5–37.2; O2SAT 93–96
[2022-06-09 05:20] LABS: Basophils % 0.3 %; Eosinophils # 0.3 10^3/uL (0.0-0.8); Eosinophils % 5.2 %; Hematocrit 41.9 % (37.0-47.0); Hemoglobin 13.4 g/dL (11.5-15.3); Lymphocytes # 1.8 10^3/uL (0.8-4.8); Lymphocytes % 29.8 %; Mean Platelet Volume 8.7 fL (7.4-10.4); Monocytes # 0.5 10^3/uL (0.2-0.9); Monocytes % 7.9 %; Neutrophils # 3.24 10^3/uL (1.8-7.7); Neutrophils % 54.8 %; Nucleated Red Blood Cells % 0 %; Platelet Count 314 10^3/cmm (130-400); Red Blood Count 4.32 10^6/uL (4.1-5.3); Red Cell Distribution Width 13.3 % (12.1-15.1); White Blood Count 5.9 10^3/uL (4.0-10.0)
[2022-06-09 06:03] LABS: Blood Urea Nitrogen 4 mg/dL (8-23); Calcium 9.2 mg/dL (8.5-10.5); Carbon Dioxide 24 mmol/L (22-29); Chloride 107 mmol/L (98-107); Glomerular Filtration Rate 123.1 mL/min (90-130); Glucose 110 mg/dL (65-115); Osmolality Calculated 290 mOsm/kg (285-295); Sodium 141 mmol/L (136-145)
[2022-06-09] MEDS: sucralfate 1 gm Tablet PO ×2 (10:42→21:11)
[2022-06-09] MEDS: zonisamide 100 MG Capsule PO ×2 (10:43→21:11)
[2022-06-09] MEDS: levETIRAcetam 500 mg Tablet 1000 MG PO ×2 (10:43→17:51)
[2022-06-09] MEDS: PHENYTOIN 50 MG 50 EACH PO ×3 (10:44→21:12)
[2022-06-09] MEDS: tamsulosin 0.4 mg Capsule PO ×2 (10:44→21:11)
[2022-06-09] MEDS: pantoprazole DR 40 mg Tablet PO (10:45)
[2022-06-09] MEDS: folic acid 1 mg Tablet PO (10:45)
[2022-06-09] MEDS: predniSONE 5 mg Tablet 2.5 MG PO (10:45)
[2022-06-09] MEDS: amlodipine 5 mg Tablet PO (10:46)
[2022-06-09] MEDS: montelukast sodium 10 mg Tablet PO (10:46)
[2022-06-09] MEDS: heparin 5,000 unit/mL INJ 1 mL 5000 UNIT SUBCUT ×2 (10:46→21:13)
[2022-06-09] MEDS: artificial tears Op Soln 15 mL Btl 1 DROP EYE-BOTH ×3 (10:47→21:13)
[2022-06-09] MEDS: famotidine 20 mg Tablet PO ×2 (10:48→21:11)
--- NOTE | 2022-06-09 10:50 | PM.PN ---
Subjective Subjective: Patient is awake and alert Eating minced solid and thickened liquid She is not aspirating at all She is compensating able to comprehend Family is happy with the progress I will give her 1 more day on IV fluids Plan to discharge her tomorrow Mother asked me to get in touch with Mayte Chahal to learn about their final decision on palliative care in case she gets worse Vitals/I&O/Wt Last Vital Signs Temp 98.0 F 06/09/22 08:00 Pulse 61 06/09/22 08:00 Resp 18 06/09/22 08:00 BP 145/85 06/09/22 08:00 Pulse Ox 94 06/09/22 08:00 O2 Del Method 06/09/22 08:00 O2 Flow Rate 1 06/08/22 20:00 FiO2 21 06/07/22 21:37 06/08/22 06/09/22 06/09/22 22:59 06:59 14:59 Intake Total 810.5 / 915.5 240 / 240 Output Total 225 / 1325 300 / 1625 Balance 585.5 / -409.5 -300 / -709.5 240 / 240 Weight last 48 hrs Weight 38.555 kg Physical Exam Narrative: Patient is eating her diet Very happy with the progress Good gag reflex and cough reflex No active aspiration on current dysphagia diet Signs of dehydration improving Misaligned conjugate eye movement Patient is able to comprehend Keeping at times but Able to comprehend and reciprocate Spastic quadriparesis On room air hemodynamically stable Urinary Catheter Management: [place]: Cath Placed During This Visit: yes Reason for Continuing Indwelling Catheter: Accurate Measurement of Urinary Output in Critically Ill Patients Urinary Catheter Date of Insertion: 06/07/22 Urinary Catheter Time of Insertion: 15:33 Data 06/09/22 04:52 06/09/22 04:52 Micro: Microbiology 06/07/22 16:46 Blood Culture - Preliminary Blood NEGATIVE TO DATE 06/07/22 16:51 Blood Culture - Preliminary Blood NEGATIVE TO DATE A&P Assessment and plan (1) Dehydration: (2) Altered mental status: Qualifiers: Altered mental status type: transient alteration of awareness Qualified Code(s): R40.4 - Transient alteration of awareness (3) Seizure: (4) UTI (urinary tract infection): (5) Epilepsy: Plan Signs of dehydration improving Metabolic encephalopathy: Resolved Likely related to dehydration and possible recurrent breakthrough seizures Significant improvement in her mentation Currently on minced solid diet and thickened liquid diet She is tolerating her diet no signs of aspiration Patient is very happy with her progress, mother is also very appreciative and thankful good care I did tell her about short-term goal which will be to hydrate her and send her back to assisted living however in case of further worsening they might offer palliative care because they do not want any feeding tube DNR/DNI No need to repeat labs for tomorrow UTI has cleared I will discontinue ceftriaxone at the time of discharge Attestations Medical Necessity Statement*: Discharge tomorrow Time Spent in Patient Care: 30 Coding Level of Care Code Acute Code for Chg Fwd Diagnoses Dehydration E86.0 Altered mental status R40.4 Altered mental status type: transient alteration of awareness Seizure R56.9 UTI (urinary tract infection) N39.0 Epilepsy G40.909
[2022-06-09] MEDS: lacosamide 50 mg Tablet 150 MG PO ×2 (11:01→21:11)
[2022-06-09] MEDS: fluoxetine 20 mg Capsule PO (14:47)
[2022-06-09] MEDS: b-complex-vitamin c Tablet 1 EACH PO (14:47)
[2022-06-09 18:29] LABS: Urine Appearance Clear (CLEAR); Urine Color Yellow (Yellow); pH Urine 5 (5-7)
[2022-06-09 18:30] LABS: Add Urine Culture? No; Add Urine Microscopic? YES; Bacteria Urine TRACE /hpf; Bilirubin Urine Neg (Negative); Blood Urine Neg (Negative); Glucose Urine UA Norm (Normal); Ketones Urine Negative (Negative); Leukocyte Esterase Urine Negative (Negative); Mucus Urine 3+ /hpf; Nitrate Urine Negative (Negative); Protein Urine 1+ (Negative); RBC Urine 0-4 /hpf (0-2); Squamous Epithelial Cell Urine 0-4 /hpf (0-5); Urobilinogen Urine 1 mg/dL (Negative); WBC Urine 0-4 /hpf (0-5)
[2022-06-09] MEDS: nitrofurantoin SR (BID) 100 mg Capsule PO (21:19)
[2022-06-09] MEDS: cefTRIAXone 1,000 MG in sodium chloride 0.9% (plus) 50 ML 100 MG IV (21:50)
[2022-06-09] MEDS: dextrose 5%-sod chloride 0.45% 1,000 ML 30 ML IV (21:51)
[2022-06-10] VITALS: BP 134/77; PULSE 67; RESP 15; TEMP 36.4; O2SAT 93
[2022-06-10 04:00] VITALS: BP 129/69; PULSE 72; RESP 16; TEMP 36.7; O2SAT 94
--- NOTE | 2022-06-10 07:47 | PC.SOCIAL ---
IMM Update IMM not updated as patient is currently in observation status.
[2022-06-10 07:59] VITALS: BP 152/71; PULSE 73; RESP 18; TEMP 36.6; O2SAT 95
--- NOTE | 2022-06-10 08:35 | PM.DCS ---
Discharge Providers Date of Admission: 06/07/22 17:50 Date of Discharge: June 10, 2022 Attending Provider at Admission: Mellissa Bettencourt MD Attending Provider at Discharge: Mellissa Bettencourt MD Primary Care Provider: Marilyn Trivedi APN Diagnoses at Discharge Discharge Diagnosis (1) Dehydration: Status: Acute (2) Altered mental status: Status: Acute Qualifiers: Altered mental status type: transient alteration of awareness Qualified Code(s): R40.4 - Transient alteration of awareness (3) Seizure: Status: Acute (4) UTI (urinary tract infection): Status: Acute (5) Epilepsy: Status: Acute Reason for Visit Reason for Visit: DECREASED LOC Hospital Course Hospital Course 66-year female who was admitted after she was discharged 1 day ago after management of metabolic encephalopathy, breakthrough seizures and UTI. Patient remained very obtunded and drowsy until she was hydrated with IV fluids, another speech therapy evaluation was done during hospitalization, she was tolerating solid minced diet along with thickened liquid, no signs of aspiration noted. Patient energy and mental status improved, she was able to follow commands and comprehend. Multiple family meetings were conducted, her mother made her DNR/DNI, she does not want any feeding tube placement or TPN, in case of further worsening at the assisted living family might opt for palliative/hospice care. No signs of UTI, CT head unremarkable. Patient experienced 1 breakthrough seizure during hospitalization. She is high risk for readmissions, I had baljit discussion with the family regarding her high risk for readmission and risk for aspiration pneumonia with breakthrough seizures, family had decided to allow her to eat even though she is at risk of aspiration, they are well aware that she could aspirate, become hypoxic and experience cardiac arrest, Physical Exam Narrative: Awake and alert Able to comprehend and follow commands Eating food family At the bedside S1, S2 Hemodynamically stable Bedbound, spastic quadriparesis Doing well on room air Urinary Catheter Management: [place]: Cath Placed During This Visit: yes Reason for Continuing Indwelling Catheter: Chronic Indwelling Urinary Catheter on Admission Urinary Catheter Date of Insertion: 06/07/22 Urinary Catheter Time of Insertion: 15:33 Discharge Data Studies Completed and Pending Completed Studies During Hospitalization Category Date Time Status CT head wo con* [id number] Urgent Cat Scan 06/07/22 15:05 Completed XR chest 1V portable [id number] Urgent Exams 06/07/22 14:55 Completed Pending at discharge Category Date Time Status Blood Culture Stat Lab 06/07/22 16:51 Results Radiology Impressions Chest X-Ray 06/07/22 14:55 IMPRESSION: 1. Low lung volumes seen. 2. Left lower lobe interstitial congestion. 3. Left lower lobe opacity possible pleural effusion 4. Electronic device left anterior chest. Head CT 06/07/22 15:05 IMPRESSION: 1. No evidence of intracranial hemorrhage or mass effect. 2. No acute intracranial findings. 3. Areas of chronic encephalomalacia and craniotomy are unchanged. Laboratory Results WBC 5.9 10^3/uL (4.0-10.0) 06/09/22 04:52 RBC 4.32 10^6/uL (4.1-5.3) 06/09/22 04:52 Hgb 13.4 g/dL (11.5-15.3) 06/09/22 04:52 Hct 41.9 % (37.0-47.0) 06/09/22 04:52 MCV 97.0 fl (81-99) 06/09/22 04:52 MCH 31.0 pg (28.0-34.0) 06/09/22 04:52 MCHC 32.0 g/dL (30.0-36.0) 06/09/22 04:52 RDW 13.3 % (12.1-15.1) 06/09/22 04:52 Plt Count 314 10^3/cmm (130-400) 06/09/22 04:52 MPV 8.7 fL (7.4-10.4) 06/09/22 04:52 Neut % (Auto) 54.8 % 06/09/22 04:52 Lymph % (Auto) 29.8 % 06/09/22 04:52 [place] % (Auto) 7.9 % 06/09/22 04:52 Eos % (Auto) 5.2 % 06/09/22 04:52 Baso % (Auto) 0.3 % 06/09/22 04:52 Neut # (Auto) 3.24 10^3/uL (1.8-7.7) 06/09/22 04:52 Lymph # (Auto) 1.8 10^3/uL (0.8-4.8) 06/09/22 04:52 [place] # (Auto) 0.5 10^3/uL (0.2-0.9) 06/09/22 04:52 Eos # (Auto) 0.3 10^3/uL (0.0-0.8) 06/09/22 04:52 Baso # (Auto) 0.0 10^3/uL (0.0-0.1) 06/09/22 04:52 Nucleated RBC % (auto) 0 % 06/09/22 04:52 Nucleated RBCs # 0.0 /100WBC 06/09/22 04:52 Specimen Type Arterial 06/07/22 15:00 Sample Site Radial, left 06/07/22 15:00 ABG pH 7.44 (7.35-7.45) 06/07/22 15:00 ABG pCO2 39.9 mmHg (35-45) 06/07/22 15:00 ABG pO2 68.2 mmHg (80.0-100.0) L 06/07/22 15:00 ABG HCO3 26.8 mmol/L (22-26) H 06/07/22 15:00 ABG O2 Saturation 93.1 06/07/22 15:00 ABG Base Excess 2.4 mmol/L (-2.0-2.0) H 06/07/22 15:00 Gustavo Test Pos 06/07/22 15:00 A-a O2 Gradient 4.2 mmHg (5-10) L 06/07/22 15:00 Hematocrit 37.4 % (37-47) 06/07/22 15:00 Hgb O2 Saturation 92.2 % (95-100) L 06/07/22 15:00 Carboxyhemoglobin 0.4 %THgb (0.4-20.1) 06/07/22 15:00 Methemoglobin 0.6 % (0.4-1.5) 06/07/22 15:00 Total Hemoglobin 12.2 g/dL (12-16) 06/07/22 15:00 Sodium 140.0 mmol/L (131-143) 06/07/22 15:00 Potassium 3.6 mmol/L (3.5-5.0) 06/07/22 15:00 Glucose 134.0 mg/dL (70-115) H 06/07/22 15:00 Ionized Calcium 1.3 mmol/L (1.1-1.4) 06/07/22 15:00 O2 Delivery Device Room air 06/07/22 15:00 FiO2 21.0 % 06/07/22 15:00 Wine Blender ID Cak 06/07/22 15:00 Sodium 141 mmol/L (136-145) 06/09/22 04:52 Potassium 4.0 mmol/L (3.5-5.1) 06/09/22 04:52 Chloride 107 mmol/L (98-107) 06/09/22 04:52 Carbon Dioxide 24 mmol/L (22-29) 06/09/22 04:52 Anion Gap 14.0 (5-19) 06/09/22 04:52 BUN 4 mg/dL (8-23) L 06/09/22 04:52 Creatinine 0.5 mg/dL (0.5-0.9) 06/09/22 04:52 GFR Calculation 123.1 mL/min (90-130) 06/09/22 04:52 Glucose 110 mg/dL (65-115) 06/09/22 04:52 Calculated Osmolality 290 mOsm/kg (285-295) 06/09/22 04:52 Lactic Acid 0.7 mmol/L (0.5-2.2) 06/07/22 20:00 Calcium 9.2 mg/dL (8.5-10.5) 06/09/22 04:52 Phosphorus 2.7 mg/dL (2.5-4.5) 06/08/22 04:50 Magnesium 1.9 mg/dL (1.7-2.3) 06/08/22 04:50 Total Bilirubin 0.2 mg/dL (0.15-1.2) 06/07/22 14:35 AST 22 U/L (0-32) 06/07/22 14:35 ALT 54 U/L (0-33) H 06/07/22 14:35 Alkaline Phosphatase 86 U/L (35-105) 06/07/22 14:35 Troponin T Baseline 25 ng/L (0-10) H 06/07/22 14:35 Troponin T 120 Minute 25.14 ng/L (0-10) H 06/07/22 16:46 Delta Troponin T 0.14 ABS# (0-10) 06/07/22 16:46 Troponin T Hi Sens 6Hr 25.53 ng/L (0-10) H 06/07/22 20:00 Troponin T Hi Sens 6Hr Delta 0.53 ng/L (0-12) 06/07/22 20:00 NT-Pro-B Natriuret Pep 735 pg/mL (0-125) H 06/07/22 14:35 Total Protein 6.1 g/dL (6.6-8.7) L 06/07/22 14:35 Albumin 3.3 g/dL (3.5-5.2) L 06/07/22 14:35 Globulin 2.8 g/dL (1.3-4.6) 06/07/22 14:35 Procalcitonin 0.22 ng/mL (0-0.5) 06/07/22 20:00 TSH 0.55 uIU/mL (0.27-4.20) 06/07/22 14:35 Urine Color Yellow (Yellow) 06/09/22 18:00 Urine Appearance Clear (CLEAR) 06/09/22 18:00 Urine pH 5 (5-7) 06/09/22 18:00 Ur Specific [place] 1.030 (1.005-1.030) 06/09/22 18:00 Urine Protein 1+ (Negative) H 06/09/22 18:00 Urine Glucose (UA) Norm (Normal) 06/09/22 18:00 Urine Ketones Negative (Negative) 06/09/22 18:00 Urine Blood Neg (Negative) 06/09/22 18:00 Urine Nitrate Negative (Negative) 06/09/22 18:00 Urine Bilirubin Neg (Negative) 06/09/22 18:00 Prot Sulfosalicylic Acd Negative (Negative) 06/07/22 14:36 Urine Urobilinogen 1 mg/dL (Negative) H 06/09/22 18:00 Ur Leukocyte Esterase Negative (Negative) 06/09/22 18:00 Urine RBC 0-4 /hpf (0-2) H 06/09/22 18:00 Urine WBC 0-4 /hpf (0-5) H 06/09/22 18:00 Ur Squamous Epith Cells 0-4 /hpf (0-5) H 06/09/22 18:00 Amorphous Sediment Not Reportable 06/09/22 18:00 Urine Bacteria Trace /hpf (NONE) 06/09/22 18:00 Urine Mucus 3+ /hpf 06/09/22 18:00 Vitals Last Vital Signs Temp 97.8 F 06/10/22 07:59 Pulse 73 06/10/22 07:59 Resp 18 06/10/22 07:59 BP 152/71 06/10/22 07:59 Pulse Ox 95 06/10/22 07:59 O2 Del Method 06/10/22 07:59 O2 Flow Rate 1 06/09/22 20:00 FiO2 21 06/07/22 21:37 Discharge Plan Discharge Patient Disposition: Home Condition: Stable Prescriptions: Continued folic acid 1 mg tablet 1 mg PO DAILY@08 montelukast [Singulair] 10 mg tablet 10 mg PO DAILY@08 multivitamin Tablet 1 tab PO DAILY@08 polyethylene glycol 3350 [Miralax] 17 gram/dose powder 8.5 gm PO DAILY@08 Rx Instructions: with h2o or juice fluticasone propionate [Flonase Allergy Relief] 50 mcg/actuation spray,suspension 1 spray INTRANASAL DAILY@08 Rx Instructions: administer into each nostril pantoprazole [Protonix] 40 mg tablet,delayed release (DR/EC) 40 mg PO DAILY@08 prednisone 2.5 mg tablet 2.5 mg PO DAILY@08 tamsulosin [Flomax] 0.4 mg capsule 0.4 mg PO BID@08,20 zonisamide [Zonegran] 100 mg capsule 100 mg PO BID@08,20 Flovent HFA 220 mcg/actuation HFA aerosol inhaler 1 inh INHALATION BID@08,20 Vimpat 150 mg tablet 150 mg PO BID@08,20 sucralfate [Carafate] 1 gram tablet 1 gm PO BID@08,20 phenazopyridine [Azo Urinary Pain Relief] 95 mg tablet 190 mg PO TID PRN (Reason: Bladder Spasms) alprazolam [Xanax] 0.25 mg tablet 0.25 mg PO Q4H PRN (Reason: Seizures lasting over 10 mins) acetaminophen [Tylenol] 325 mg capsule 325 mg PO Q4H PRN (Reason: Pain) simethicone [Gas-X Extra Strength] 125 mg capsule 125 mg PO Q8H PRN (Reason: Stomach Upset) docusate sodium [Colace] 100 mg capsule 100 mg PO BEDTIME PRN (Reason: Constipation) Rx Instructions: after 3 days of no bm ondansetron HCl 4 mg Tablet 4 mg PO Q4H PRN (Reason: Nausea And Vomiting) nitrofurantoin macrocrystal [Macrodantin] 100 mg Capsule 100 mg PO BEDTIME@20 Rx Instructions: must administer with a meal/food cyanocobalamin (vitamin B-12) 500 mcg Tablet 500 mcg PO DAILY@12 fluoxetine 20 mg Tablet 20 mg PO DAILY@12 Rx Instructions: with 10mg caps vitamin B complex Tablet 1 tab PO DAILY@12 scopolamine base [Transderm-Scop] 1 mg over 3 days Patch 3 Day 1 patch TRANSDERMAL Q3D Rx Instructions: behind ear Acidophilus Tablet,Chewable 1 tab PO DAILY@08 triamcinolone acetonide 0.1 % Cream 1 applic TOPICAL BID PRN (Reason: Rash) albuterol sulfate 90 mcg/actuation Hfa Aerosol Inhaler 2 puff INHALATION QID PRN (Reason: Shortness Of Breath) clotrimazole 1 % Cream See Rx Instructions .ROUTE .COMPLEX Rx Instructions: apply to rash bid until clear then prn Nutritional Drink Liquid 1 ea PO TID@09,13,19 diclofenac sodium 1 % Gel 4 g TOPICAL QID PRN (Reason: Pain) Rx Instructions: apply to single knee, ankle, foot; for foot includes sole/toes/top of foot famotidine 20 mg tablet 20 mg PO BID@08,20 (DME) Breathe Right Strip TOPICAL Rx Instructions: prn benzonatate 100 mg Capsule 100 mg PO TID PRN (Reason: Cough) 10 Days Qty: 30 0RF levetiracetam 500 mg tablet 1,000 mg PO BID 30 Days Qty: 60 0RF Cough Drops See Rx Instructions .ROUTE .COMPLEX Rx Instructions: may keep at bedside prn Systane (propylene glycol) 0.4-0.3 % Drops 1 drp ophthalmic (eye) TID Rx Instructions: both eyes fluoxetine 10 mg capsule 10 mg PO DAILY@12 Rx Instructions: with 20mg cap Tussin DM Cough and Chest 5-100 mg/5 mL liquid 10 ml PO BID PRN (Reason: Cough) Dilantin Infatabs 50 mg tablet,chewable 50 mg PO TID@08,14,20 amlodipine 5 mg tablet 5 mg PO DAILY@08 diazepam 5-7.5-10 mg kit See Rx Instructions .ROUTE .COMPLEX Rx Instructions: apply gel rectally prn for prolonged seizures > than 35 mins Discontinued cholecalciferol (vitamin D3) 1,250 mcg (50,000 unit) capsule 50,000 unit PO Q7D calcium carbonate [Tums] 200 mg calcium (500 mg) tablet,chewable 200 mg PO DAILY PRN (Reason: Heartburn) Black [place] 1 tab PO BID@08,20 Cbd Oil 0.5 ml PO DAILY@08 ciprofloxacin HCl [Cipro] 500 mg tablet 500 mg PO Q12H 2 Days Qty: 4 0RF Rx Instructions: rx written 06/06/2022 medication not on mar acetaminophen-codeine [Tylenol-Codeine #3] 300-30 mg Tablet 1 tab PO Q4H PRN (Reason: Pain) ascorbic acid (vitamin C) [Vitamin C] 500 mg Tablet,Chewable 2,000 mg PO DAILY@12 calcium citrate-vitamin D3 [Citracal plus D] 250 mg-5 mcg (200 unit) Tablet 1 tab PO DAILY@08 Discharge Orders: Discharge Order (Routine); Ordered 06/10/22 Ordered By: Mellissa Bettencourt Referrals: Farooq,Marilyn, [employer] [Primary Care Provider] - Patient Instructions: Dehydration - Adult, Hypoxia (GEN), Opioid Safety Activity Restrictions/Additional Instructions: Minced solid food with thickened liquid diet Patient will need supervision during her meals Discharge Attestations Time Spent in Discharge Care*: less than 30 min Quality Metrics Clinical Quality Measures [ No reported AMI, CVA or VTE this stay] Coding Level of Care Code Acute Chg FW DC note Diagnoses Dehydration E86.0 Altered mental status R40.4 Altered mental status type: transient alteration of awareness Seizure R56.9 UTI (urinary tract infection) N39.0 Epilepsy G40.909
[2022-06-10] MEDS: heparin 5,000 unit/mL INJ 1 mL 5000 UNIT SUBCUT (09:21)
[2022-06-10] MEDS: pantoprazole DR 40 mg Tablet PO (09:21)
[2022-06-10] MEDS: polyethylene glycol 3350 Pkt 17 gm 8.5 GM PO (09:21)
[2022-06-10] MEDS: levETIRAcetam 500 mg Tablet 1000 MG PO (09:21)
[2022-06-10] MEDS: predniSONE 5 mg Tablet 2.5 MG PO (09:22)
[2022-06-10] MEDS: montelukast sodium 10 mg Tablet PO (09:22)
[2022-06-10] MEDS: amlodipine 5 mg Tablet PO (09:22)
[2022-06-10] MEDS: folic acid 1 mg Tablet PO (09:22)
[2022-06-10] MEDS: PHENYTOIN 50 MG 50 EACH PO (09:23)
[2022-06-10] MEDS: lacosamide 50 mg Tablet 150 MG PO (09:29)
[2022-06-10] MEDS: artificial tears Op Soln 15 mL Btl 1 DROP EYE-BOTH (09:29)
[2022-06-10] MEDS: zonisamide 100 MG Capsule PO (09:29)
[2022-06-10] MEDS: famotidine 20 mg Tablet PO (09:29)
[2022-06-10] MEDS: sucralfate 1 gm Tablet PO (09:29)
[2022-06-10] MEDS: tamsulosin 0.4 mg Capsule PO (09:29)
[2022-06-10 11:19] VITALS: BP 152/71; PULSE 73; RESP 18; TEMP 36.6; O2SAT 95
== END 2022-06-10 12:16 | disposition home or self-care (01) ==
LOC: ER 17:50 → MEDSURG 19:00
PROVIDERS: Admitting Provider Internal Medicine; Emergency Provider Family Medicine; PCP Nurse Practitioner Family; Visit Provider Internal Medicine
DX: E86.0 Dehydration (principal); R40.4 Transient alteration of awareness; N39.0 Urinary tract infection, site not specified; G40.909 Epilepsy, unspecified, not intractable, without status epilepticus; G93.41 Metabolic encephalopathy; Z66 Do not resuscitate; Z87.820 Personal history of traumatic brain injury
CPT/HCPCS: 36415; 36600; 51702; 70450; 71045; 80048; 80051; 80053; 81001; 82330; 82805; 83605; 83735; 83880; 84100; 84145; 84443; 84484; 85025; 87040; 92523; 92610; 93005; 94664; 96365; 96366; 96372; 99285; G0378; J0696; J1644; J3480; J7030; J7512; J7799

== ENCOUNTER 2022-11-30 11:17 | Emergency (ER) | payer MEDICARE, MEDICAID, SELFPAY ==
[2022-11-30 11:40] VITALS: BP 139/91; PULSE 84; RESP 17; TEMP 36.6; O2SAT 95; BMI 22.6
[2022-11-30 13:42] VITALS: BP 116/79; PULSE 82; RESP 16; TEMP 37.2; O2SAT 89
--- NOTE | 2022-11-30 14:01 | XR_ITS ---
WS: [id number] Portable AP supine chest, 11/30/2022 Clinical Data: seizure Comparison: Portable chest, 06/07/2022 Findings: No nodules, masses or effusions are seen. The heart is enlarged. The pulmonary vascularity is not increased. No pneumonia or pneumothorax is seen. There is a generator overlying the left later al chest with wires ending at the C7 vertebral level. The aortic arch and descending thoracic aorta s how tortuosity. There are monitor leads on the chest wall. XR/XR chest 1V portable [id number] Impression: Cardiomegaly and atherosclerosis.
[2022-11-30 14:29] VITALS: BP 156/112; PULSE 82; RESP 14; O2SAT 95
--- NOTE | 2022-11-30 14:30 | ECG_ITS ---
[facility] Test Date: 2022-11-30 Pat Name: Dasia Brian Department: Room: Gender: Female Planner Intern: : 1955 Requested By: Gil Pettit Order Number: [id number] Cristian MD: Robles Culver M.D. Measurements Intervals [place] Rate: 82 P: 37 HI: 180 QRS: 48 QRSD: 86 T: 54 QT: 379 QTc: 443 Interpretive Statements SINUS RHYTHM Compared to ECG 06/07/2022 17:10:17 No significant changes Electronically Signed On 11-30-2022 16:14:36 CDT by Robles Culver M.D. [id number]
[2022-11-30 14:43] LABS: Basophils # 0.1 10^3/uL (0.0-0.1); Basophils % 0.9 %; Eosinophils # 0.2 10^3/uL (0.0-0.8); Eosinophils % 3.2 %; Hematocrit 42.7 % (37.0-47.0); Hemoglobin 13.5 g/dL (11.5-15.3); Lymphocytes # 1.6 10^3/uL (0.8-4.8); Lymphocytes % 25.4 %; Mean Corpuscular HGB Conc 31.6 g/dL (30.0-36.0); Mean Corpuscular Hemoglobin 30.4 pg (28.0-34.0); Mean Corpuscular Volume 96.2 fl (81-99); Mean Platelet Volume 8.8 fL (7.4-10.4); Monocytes # 0.6 10^3/uL (0.2-0.9); Monocytes % 8.7 %; Neutrophils # 3.89 10^3/uL (1.8-7.7); Neutrophils % 61.5 %; Nucleated Red Blood Cells % 0 %; Platelet Count 296 10^3/cmm (130-400); Red Blood Count 4.44 10^6/uL (4.1-5.3); Red Cell Distribution Width 13.2 % (12.1-15.1); White Blood Count 6.3 10^3/uL (4.0-10.0)
--- NOTE | 2022-11-30 14:49 | ED_ITS ---
HPI - General Adult General: Chief complaint: General Medical Stated complaint: increase seizure activity, loss of appitite Time Seen by Provider: 11/30/22 14:00 History of Present Illness: Patient presents with her caregiver with her and as her historian. Caregiver says for the last several weeks patient has had increased seizure activity, weakness, sleepiness often sleeping through meals. Decreased urine output decreased appetite. Patient has had an increased cough that sounds deep but is nonproductive. All of these are not like the patient is normally up awake alert and oriented with good appetite. Caregiver cannot pinpoint exactly when this started but is progressively get worse over the last several weeks. Review of Systems General: Reports: 10 or more systems reviewed and unremarkable except in HPI and below PFSH ED PFSH: Medical History Acquired intellectual disability Altered mental status Brain injury Dehydration Encephalopathy chronic Epilepsy Generalized epilepsy Rheumatoid arthritis Seizures Urinary retention Surgical History History of craniotomy Family History Other No pertinent family history Social History Smoking and tobacco status: never smoked Physical Exam Const: COMMON NORMALS: no acute distress, average body habitus, healthy appearing, alert and well nourished HENMT: COMMON NORMALS: normocephalic, atraumatic, hearing grossly normal bilaterally, external ears normal, Normal external nose present and moist oral mucous membranes HEAD & SCALP: normocephalic and atraumatic NOSE: Normal external nose present EXTERNAL EAR: Yes external ears normal Neck/C-Spine: COMMON NORMALS: no JVD Chest: COMMONS NORMALS: normal inspection of the chest and normal palpation of entire chest wall Resp: COMMON NORMALS: normal respiratory effort, No retractions, No use of accessory muscles and clear to auscultation bilaterally AUSCULTATION: clear to auscultation bilaterally Cardio: COMMON NORMALS: no JVD, regular rate, regular rhythm, S1 normal heart sound present, S2 normal heart sound present, No gallops present (Cardio), No clicks present (Cardio), No murmurs present (Cardio) and No rub (Cardio) RATE: regular rate RHYTHM: regular rhythm HEART SOUNDS: S1 normal heart sound present and S2 normal heart sound present GI: COMMON NORMALS: Normal to inspection, nondistended, normoactive bowel sounds present, Soft to palpation, non-tender, No hepatosplenomegaly present and no masses PALPATION: Yes Soft to palpation and Yes No hepatosplenomegaly present Neuro: SENSORIUM/ORIENTATION: Yes alert Course Vital Signs: Vital signs: Vital Signs Temperature 99 F 11/30/22 13:42 Pulse Rate 76 11/30/22 16:34 Respiratory Rate 22 H 11/30/22 16:34 Blood Pressure 142/85 11/30/22 16:34 Pulse Oximetry 98 11/30/22 16:34 Oxygen Delivery Me thod Nasal Cannula 11/30/22 15:07 Oxygen Flow Rate 3 11/30/22 15:07 MDM - General Adult Medical Decision Making Patient presents to the ER with complaints of generalized decline and not acting right. Patient had lab work obtained which was essentially unremarkable except for signs of urinary tract infection. Patient had a chest x-ray again which was unremarkable. Patient will be given 1 g IV Rocephin and be sent home on Cipro 500 mg 1 p.o. twice daily x10 days. Differential Diagnosis Bronchitis, pneumonia, nausea vomiting diarrhea, seizure, general debility, Medical Records I reviewed the patient's medical records. Lab Data I reviewed the patient's lab results. 11/30/22 14:35 11/30/22 14:35 Radiology Impressions Chest X-Ray 11/30/22 14:01 Impression: Cardiomegaly and atherosclerosis. Laboratory Results WBC 6.3 10^3/uL (4.0-10.0) 11/30/22 14:35 RBC 4.44 10^6/uL (4.1-5.3) 11/30/22 14:35 Hgb 13.5 g/dL (11.5-15.3) 11/30/22 14:35 Hct 42.7 % (37.0-47.0) 11/30/22 14:35 MCV 96.2 fl (81-99) 11/30/22 14:35 MCH 30.4 pg (28.0-34.0) 11/30/22 14:35 MCHC 31.6 g/dL (30.0-36.0) 11/30/22 14:35 RDW 13.2 % (12.1-15.1) 11/30/22 14:35 Plt Count 296 10^3/cmm (130-400) 11/30/22 14:35 MPV 8.8 fL (7.4-10.4) 11/30/22 14:35 Neut % (Auto) 61.5 % 11/30/22 14:35 Lymph % (Auto) 25.4 % 11/30/22 14:35 [place] % (Auto) 8.7 % 11/30/22 14:35 Eos % (Auto) 3.2 % 11/30/22 14:35 Baso % (Auto) 0.9 % 11/30/22 14:35 Neut # (Auto) 3.89 10^3/uL (1.8-7.7) 11/30/22 14:35 Lymph # (Auto) 1.6 10^3/uL (0.8-4.8) 11/30/22 14:35 [place] # (Auto) 0.6 10^3/uL (0.2-0.9) 11/30/22 14:35 Eos # (Auto) 0.2 10^3/uL (0.0-0.8) 11/30/22 14:35 Baso # (Auto) 0.1 10^3/uL (0.0-0.1) 11/30/22 14:35 Nucleated RBC % (auto) 0 % 11/30/22 14:35 Nucleated RBCs # 0.0 /100WBC 11/30/22 14:35 Sodium 137 mmol/L (136-145) 11/30/22 14:35 Potassium 4.2 mmol/L (3.5-5.1) 11/30/22 14:35 Chloride 103 mmol/L (98-107) 11/30/22 14:35 Carbon Dioxide 25 mmol/L (22-29) 11/30/22 14:35 Anion Gap 13.2 (5-19) 11/30/22 14:35 BUN 16 mg/dL (8-23) 11/30/22 14:35 Creatinine 0.6 mg/dL (0.5-0.9) 11/30/22 14:35 GFR Calculation 99.7 mL/min (90-130) 11/30/22 14:35 Glucose 115 mg/dL (65-115) 11/30/22 14:35 Calculated Osmolality 286 mOsm/kg (285-295) 11/30/22 14:35 Calcium 8.5 mg/dL (8.5-10.5) 11/30/22 14:35 Phosphorus 4.1 mg/dL (2.5-4.5) 11/30/22 14:35 Magnesium 2.2 mg/dL (1.7-2.3) 11/30/22 14:35 Total Bilirubin 0.2 mg/dL (0.15-1.2) 11/30/22 14:35 AST 22 U/L (0-32) 11/30/22 14:35 ALT 28 U/L (0-33) 11/30/22 14:35 Alkaline Phosphatase 129 U/L (35-105) H 11/30/22 14:35 Total Protein 7.0 g/dL (6.6-8.7) 11/30/22 14:35 Albumin 3.3 g/dL (3.5-5.2) L 11/30/22 14:35 Globulin 3.7 g/dL (1.3-4.6) 11/30/22 14:35 Prolactin 17.00 ng/mL (4.8-23.3) 11/30/22 14:35 Urine Color [place] (Yellow) 11/30/22 16:05 Urine Appearance Clear (CLEAR) 11/30/22 16:05 Urine pH 7 (5-7) 11/30/22 16:05 Ur Specific [place] 1.010 (1.005-1.030) 11/30/22 16:05 Urine Protein 3+ (Negative) H 11/30/22 16:05 Urine Glucose (UA) Norm (Normal) 11/30/22 16:05 Urine Ketones 1+ (Negative) H 11/30/22 16:05 Urine Blood Neg (Negative) 11/30/22 16:05 Urine Nitrate Positive (Negative) H 11/30/22 16:05 Urine Bilirubin 3+ (Negative) H 11/30/22 16:05 Urine Urobilinogen 4+ mg/dL (Negative) H 11/30/22 16:05 Ur Leukocyte Esterase Trace (Negative) H 11/30/22 16:05 Urine RBC 0-4 /hpf (0-2) H 11/30/22 16:05 Urine WBC 0-4 /hpf (0-5) H 11/30/22 16:05 Ur Squamous Epith Cells 0-4 /hpf (0-5) H 11/30/22 16:05 Amorphous Sediment 3+ /hpf 11/30/22 16:05 Urine Bacteria None /hpf (NONE) 11/30/22 16:05 Urine Mucus N /hpf 11/30/22 16:05 EKG Data EKG 1: I personally reviewed and interpreted this EKG as follows: EKG interpretation date: 11/30/22 EKG interpretation time: 14:30 Interpretation: EKG showed normal sinus rhythm with a ventricular rate of 82 beats minute, UT interval 180, QRS duration 86, QTc of 417, no ST-T wave changes Computer generated interpretation: Chest X-Ray 11/30/22 14:01 Impression: Cardiomegaly and atherosclerosis. Discharge Plan Discharge Patient Disposition: Home Clinical Impression: UTI (urinary tract infection) Qualifiers: Urinary tract infection type: acute cystitis Hematuria presence: without hematuria Qualified Code(s): N30.00 - Acute cystitis without hematuria Condition: Stable Prescriptions: New ciprofloxacin HCl 500 mg tablet 500 mg PO BID Qty: 20 0RF No Action folic acid 1 mg tablet 1 mg PO DAILY@08 montelukast [Singulair] 10 mg tablet 10 mg PO DAILY@08 multivitamin Tablet 1 tab PO DAILY@08 polyethylene glycol 3350 [Miralax] 17 gram/dose powder 8.5 gm PO DAILY@08 Rx Instructions: with h2o or juice fluticasone propionate [Flonase Allergy Relief] 50 mcg/actuation spray,suspension 1 spray INTRANASAL DAILY@08 Rx Instructions: administer into each nostril pantoprazole [Protonix] 40 mg tablet,delayed release (DR/EC) 40 mg PO DAILY@08 prednisone 2.5 mg tablet 2.5 mg PO DAILY@08 tamsulosin [Flomax] 0.4 mg capsule 0.4 mg PO BID@08,20 zonisamide [Zonegran] 100 mg capsule 100 mg PO BID@08,20 Flovent HFA 220 mcg/actuation HFA aerosol inhaler 1 inh INHALATION BID@08,20 Vimpat 150 mg tablet 150 mg PO BID@08,20 sucralfate [Carafate] 1 gram tablet 1 gm PO BID@08,20 phenazopyridine [Azo Urinary Pain Relief] 95 mg tablet 190 mg PO TID PRN (Reason: Bladder Spasms) alprazolam [Xanax] 0.25 mg tablet 0.25 mg PO Q4H PRN (Reason: Seizures lasting over 10 mins) acetaminophen [Tylenol] 325 mg capsule 325 mg PO Q4H PRN (Reason: Pain) simethicone [Gas-X Extra Strength] 125 mg capsule 125 mg PO Q8H PRN (Reason: Stomach Upset) docusate sodium [Colace] 100 mg capsule 100 mg PO BEDTIME PRN (Reason: Constipation) Rx Instructions: after 3 days of no bm ondansetron HCl 4 mg Tablet 4 mg PO Q4H PRN (Reason: Nausea And Vomiting) nitrofurantoin macrocrystal [Macrodantin] 100 mg Capsule 100 mg PO BEDTIME@20 Rx Instructions: must administer with a meal/food cyanocobalamin (vitamin B-12) 500 mcg Tablet 500 mcg PO DAILY@12 fluoxetine 20 mg Tablet 20 mg PO DAILY@12 Rx Instructions: with 10mg caps vitamin B complex Tablet 1 tab PO DAILY@12 scopolamine base [Transderm-Scop] 1 mg over 3 days Patch 3 Day 1 patch TRANSDERMAL Q3D Rx Instructions: behind ear Acidophilus Tablet,Chewable 1 tab PO DAILY@08 triamcinolone acetonide 0.1 % Cream 1 applic TOPICAL BID PRN (Reason: Rash) albuterol sulfate 90 mcg/actuation Hfa Aerosol Inhaler 2 puff INHALATION QID PRN (Reason: Shortness Of Breath) clotrimazole 1 % Cream See Rx Instructions .ROUTE .COMPLEX Rx Instructions: apply to rash bid until clear then prn Nutritional Drink Liquid 1 ea PO TID@,, diclofenac sodium 1 % Gel 4 g TOPICAL QID PRN (Reason: Pain) Rx Instructions: apply to single knee, ankle, foot; for foot includes sole/toes/top of foot famotidine 20 mg tablet 20 mg PO BID@,20 (DME) Breathe Right Strip TOPICAL Rx Instructions: prn levetiracetam 500 mg tablet 1,000 mg PO BID 30 Days Qty: 60 0RF Cough Drops See Rx Instructions .ROUTE .COMPLEX Rx Instructions: may keep at bedside prn Systane (propylene glycol) 0.4-0.3 % Drops 1 drp ophthalmic (eye) TID Rx Instructions: both eyes fluoxetine 10 mg capsule 10 mg PO DAILY@12 Rx Instructions: with 20mg cap Tussin DM Cough and Chest 5-100 mg/5 mL liquid 10 ml PO BID PRN (Reason: Cough) Dilantin Infatabs 50 mg tablet,chewable 50 mg PO TID@08,14,20 amlodipine 5 mg tablet 5 mg PO DAILY@08 diazepam 5-7.5-10 mg kit See Rx Instructions .ROUTE .COMPLEX Rx Instructions: apply gel rectally prn for prolonged seizures > than 35 mins Discharge Orders: Discharge ED (Routine); Ordered 11/30/22 Ordered By: Niranjan Ward Referrals: Farooq,ZOE Sanders [Primary Care Provider] - 1 week Patient Instructions: Urinary Tract Infection - Women Activity Restrictions/Additional Instructions: Please take all your antibiotics as directed. Please follow-up with your family practice doctor within 1 week or sooner as needed. Coding Level of Care Code ED Engagement Specialist for Ady Vidal
[2022-11-30 14:58] VITALS: BP 144/87; PULSE 79; RESP 19
[2022-11-30 15:07] VITALS: BP 152/82; PULSE 76; RESP 28; O2SAT 95
[2022-11-30 15:09] LABS: Alanine Aminotransferase 28 U/L (0-33); Albumin Level 3.3 g/dL (3.5-5.2); Alkaline Phosphatase 129 U/L (35-105); Anion Gap 13.2 (5-19); Aspartate Amino Transferase 22 U/L (0-32); Blood Urea Nitrogen 16 mg/dL (8-23); Calcium 8.5 mg/dL (8.5-10.5); Carbon Dioxide 25 mmol/L (22-29); Chloride 103 mmol/L (98-107); Globulin 3.7 g/dL (1.3-4.6); Glomerular Filtration Rate 99.7 mL/min (90-130); Glucose 115 mg/dL (65-115); Magnesium 2.2 mg/dL (1.7-2.3); Osmolality Calculated 286 mOsm/kg (285-295); Phosphorus 4.1 mg/dL (2.5-4.5); Potassium 4.2 mmol/L (3.5-5.1); Sodium 137 mmol/L (136-145); Total Bilirubin 0.2 mg/dL (0.15-1.2)
[2022-11-30 16:34] VITALS: BP 142/85; PULSE 76; RESP 22; O2SAT 98
[2022-11-30 16:43] LABS: Urine Appearance Clear (CLEAR); Urine Color Orange (Yellow); pH Urine 7 (5-7)
[2022-11-30 16:44] LABS: Bilirubin Urine 3+ (Negative); Blood Urine Neg (Negative); Glucose Urine UA Norm (Normal); Ketones Urine 1+ (Negative); Nitrate Urine Positive (Negative); Protein Urine 3+ (Negative)
[2022-11-30 16:45] LABS: Add Urine Culture? Yes; Add Urine Microscopic? YES; Amorphous Sediment Urine 3+ /hpf; Leukocyte Esterase Urine Trace (Negative); Mucus Urine N /hpf; RBC Urine 0-4 /hpf (0-2); Squamous Epithelial Cell Urine 0-4 /hpf (0-5); Urobilinogen Urine 4+ mg/dL (Negative); WBC Urine 0-4 /hpf (0-5)
[2022-11-30] MEDS: cefTRIAXone 1,000 MG in sodium chloride 0.9% (plus) 50 ML 100 MG IV (17:12)
== END 2022-11-30 17:48 | disposition home or self-care (01) ==
PROVIDERS: Emergency Provider Emergency Medicine; PCP Nurse Practitioner Family
DX: N30.00 Acute cystitis without hematuria (principal)
CPT/HCPCS: 36415; 71045; 80053; 81001; 83735; 84100; 84146; 85025; 87086; 93005; 96374; 99285; J0696

== ENCOUNTER 2023-02-04 11:13 | Outpatient (CLI) | payer MEDICARE, MEDICAID, SELFPAY ==
--- NOTE | 2023-02-04 11:25 | XR_ITS ---
WS: [id number] Exam: XR chest 2V* [id number] Date/Time of Exam: 02/04/2023 11:44 AM Reason For Exam: ANNUAL WELLNESS EXAM The lungs are fully inflated. Chronic interstitial changes throughout the RIGHT lung. Plaque atelecta sis in the LEFT base. Normal cardiomediastinal silhouette. A neurostimulator noted over the LEFT ches t. Bony structures are intact. IMPRESSION: 1. Chronic interstitial changes in the RIGHT lung. Chronic plaque atelectasis in the LEFT base. 2. No acute cardiopulmonary process is suspected.
== END 2023-02-04 11:14 | disposition home or self-care (01) ==
LOC: RAD 11:21
PROVIDERS: PCP Nurse Practitioner Family; Visit Provider Nurse Practitioner Family
DX: Z00.00 Encounter for general adult medical examination without abnormal findings (principal); J98.11 Atelectasis
CPT/HCPCS: 71046

== ENCOUNTER 2023-12-04 11:09 | Inpatient (IN) | payer MEDICARE, MEDICAID, SELFPAY ==
[2023-12-04] VITALS (9 sets, daily range): BP systolic 104–156; BP diastolic 61–108; PULSE 69–82; RESP 16; TEMP 36.6–37.1; O2SAT 88–96; BMI 19.8
--- NOTE | 2023-12-04 11:49 | PC.PHAR ---
PT IS FROM [facility]
--- NOTE | 2023-12-04 12:36 | XRR_ITS ---
PROCEDURE INFORMATION: Exam: XR Chest Exam date and time: 12/04/2023 12:46 PM Age: 67 years old Clinical indication: Cough and dyspnea; Patient HX: AMS, lethargic; Additional info: Dyspnea/cough TECHNIQUE: Imaging protocol: Radiologic exam of the chest. Views: 1 view. COMPARISON: CR XR chest 2V* [id number] 02/04/2023 11:45 AM FINDINGS: Lungs: Unremarkable. No consolidation. Pleural spaces: Unremarkable. No pleural effusion. No pneumothorax. Heart/Mediastinum: See Vasculature finding. Vasculature: Mild cardiomegaly and uncoiling of the thoracic aorta each accentuated by the AP positioning. Bones/joints: Unremarkable. XR/XR chest 1V portable [id number] IMPRESSION: No acute cardiopulmonary disease.
--- NOTE | 2023-12-04 12:37 | ECG_ITS ---
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 Measurements Intervals [place] Rate: 71 P: 4 IL: 181 QRS: 35 QRSD: 80 T: 46 QT: 391 QTc: 425 Interpretive Statements SINUS RHYTHM Compared to ECG 11/30/2022 14:30:53 No significant changes Electronically Signed On 12-04-2023 17:11:25 CDT by Robles Culver M.D. [id number]
--- NOTE | 2023-12-04 12:39 | ED_ITS ---
HPI - General Adult 2 General: Chief complaint: General Medical Stated complaint: very lethargic Time Seen by Provider: 12/04/23 12:35 Source: patient Mode of arrival: wheelchair History of Present Illness: 59-year-old female presents emergency ro om lethargic and poorly responsive. We are able to arouse her but she dozes off she will give 1 or 2 word responses at most. She has a history of seizures staff reports is that she has had about 3 today. She does wear a scopolamine patch continuously last patch was placed 2 days ago. She finished a course of Bactrim on 12/02/2023. Caregiver reports she may have had a low-grade fever at home as well. Onset (ago): day(s) Relieving factors: none Exacerbating factors: none Associated symptoms: Deny chest pain, confusion, cough, diaphoresis, decreased appetite, dyspnea, fevers/chills, headache(s), malaise, nausea, rash, palpitations, seizures, short of breath, syncope, vomiting or weakness Treatments prior to arrival: none Review of Systems 2 Const: Denies: fever(s), chills, malaise or diaphoresis Card: Denies: chest pain, palpitations or syncope Resp: Denies: dyspnea GI: Denies: abdominal pain, nausea or vomiting : Denies: dysuria, urinary frequency or urinary urgency Musc: Denies: neck pain or back pain Skin/Breast: Denies: rash Neuro: Denies: headache(s) or confusion PFSH ED 2 PFSH: Medical History Acquired intellectual disability Altered mental status Brain injury Dehydration Encephalopathy chronic Epilepsy Generalized epilepsy Rheumatoid arthritis Seizures Urinary retention Surgical History History of craniotomy Family History Other No pertinent family history Social History Smoking and tobacco/nicotine status: never used tobacco/nicotine Physical Exam 2 Const: GENERAL APPEARANCE: comfortable and lethargic O RIENTATION/CONSCIOUSNESS: Yes lethargic HENMT: COMMON NORMALS: normocephalic, atraumatic and hearing grossly normal bilaterally HEAD & SCALP: normocephalic and atraumatic Resp: COMMON NORMALS: normal respiratory effort, No retractions, No use of accessory muscles and clear to auscultation bilaterally AUSCULTATION: clear to auscultation bilaterally Cardio: COMMON NORMALS: regular rate, regular rhythm and No murmurs present (Cardio) RATE: regular rate RHYTHM: regular rhythm GI: COMMON NORMALS: Soft to palpation and No hepatosplenomegaly present A USCULTATION: Yes normoactive bowel sounds PALPATION: Yes Soft to palpation, No Tenderness to palpation present (GI), No Guarding due to palpation present (GI) and Yes No hepatosplenomegaly present Extremity: COMMON NORMALS: normal to inspection, capillary refill normal, no clubbing, cyanosis or edema, no calf tenderness and no pedal edema Neuro: SENSORIUM/ORIENTATION: Yes lethargic Skin: COMMON NORMALS: no rashes or lesions noted GENERAL SKIN EXAM: no rashes or lesions noted Course 2 Vital Signs: Vital signs: Vital Signs Temperature 98.8 F 12/04/23 11:15 Pulse Rate 82 12/04/23 15:58 Respiratory Rate 16 12/04/23 11:15 Blood Pressure 127/75 12/04/23 15:58 Pulse Oximetry 96 12/04/23 15:58 Oxygen Delivery Me thod Room Air 12/04/23 15:58 Oxygen Flow Rate 3 12/04/23 11:32 [facility] - General Adult Medical Decision Making Laboratory tests did not show significant abnormality. Blood gas done did not show any significant hypoxia or retained CO2. Chest x-ray was normal CT was normal. She did have a scopolamine patch on and she had used some tramadol yesterday that stated she may have had some seizures earlier today she frequently does have seizures. Patient will be admitted for encephalopathy medication side effects. Scopolamine patch has been removed. Medical Records I reviewed the patient's medical records. Lab Data I reviewed the patient's lab results. 12/04/23 14:36 12/04/23 13:25 Radiology Impressions Chest X-Ray 12/04/23 12:36 IMPRESSION: No acute cardiopulmonary disease. Head CT 12/04/23 13:46 IMPRESSION: No acute intracranial abnormality. Extensive chronic changes. Laboratory Results WBC 6.92 10^3/uL (3.29-11.43) 12/04/23 14:36 RBC 3.26 10^6/uL (3.85-5.65) L 12/04/23 14:36 Hgb 11.20 g/dL (11.27-16.99) L 12/04/23 14:36 Hct 36.7 % (36-47) 12/04/23 14:36 MCV 112.6 fl (85-98) H 12/04/23 14:36 MCH 34.4 pg (27-33) H 12/04/23 14:36 MCHC 30.5 g/dL (30-55) 12/04/23 14:36 RDW 13.8 % (12.1-15.1) 12/04/23 14:36 Plt Count 256 10^3/cmm (157-399) 12/04/23 14:36 MPV 9.4 fL (7.4-10.4) 12/04/23 14:36 Neut % (Auto) 65.6 % 12/04/23 14:36 Lymph % (Auto) 23.0 % 12/04/23 14:36 [place] % (Auto) 6.9 % 12/04/23 14:36 Eos % (Auto) 3.5 % 12/04/23 14:36 Baso % (Auto) 0.7 % 12/04/23 14:36 Neut # (Auto) 4.54 10^3/uL (1.8-7.7) 12/04/23 14:36 Lymph # (Auto) 1.6 10^3/uL (0.8-4.8) 12/04/23 14:36 [place] # (Auto) 0.5 10^3/uL (0.2-0.9) 12/04/23 14:36 Eos # (Auto) 0.2 10^3/uL (0.0-0.8) 12/04/23 14:36 Baso # (Auto) 0.1 10^3/uL (0.0-0.1) 12/04/23 14:36 Nucleated RBC % (auto) 0 % 12/04/23 14:36 Nucleated RBCs # 0.0 /100WBC 12/04/23 14:36 Specimen Type Arterial 12/04/23 12:48 Sample Site Brachial, left 12/04/23 12:48 ABG pH 7.40 (7.35-7.45) 12/04/23 12:48 ABG pCO2 42.2 mmHg (35-45) 12/04/23 12:48 ABG pO2 129.0 mmHg (80.0-100.0) H 12/04/23 12:48 ABG PO2/FiO2 Ratio 430 12/04/23 12:48 ABG HCO3 26.0 mmol/L (22-26) 12/04/23 12:48 ABG O2 Saturation 97.7 12/04/23 12:48 ABG Base Excess 1.0 mmol/L (-2.0-2.0) 12/04/23 12:48 Gustavo Test Pos 12/04/23 12:48 A-a O2 Gradient 4.0 mmHg (5-10) L 12/04/23 12:48 Hematocrit 35.4 % (37-47) L 12/04/23 12:48 Hgb O2 Saturation 93.6 % (95-100) L 12/04/23 12:48 Carboxyhemoglobin 1.1 %THgb (0.4-20.1) 12/04/23 12:48 Methemoglobin 3.1 % (0.4-1.5) H 12/04/23 12:48 Total Hemoglobin 11.6 g/dL (12-16) L 12/04/23 12:48 Sodium 140.0 mmol/L (131-143) 12/04/23 12:48 Potassium 4.2 mmol/L (3.5-5.0) 12/04/23 12:48 Glucose 120.0 mg/dL (70-115) H 12/04/23 12:48 Ionized Calcium 1.3 mmol/L (1.1-1.4) 12/04/23 12:48 O2 Delivery Device Nc 12/04/23 12:48 O2 Liters/Min 2.5 % 12/04/23 12:48 FiO2 30.0 % 12/04/23 12:48 Agricultural Aircraft Pilot ID [place] 12/04/23 12:48 Sodium 139 mmol/L (136-145) 12/04/23 13:25 Potassium 4.4 mmol/L (3.5-5.1) 12/04/23 13:25 Chloride 104 mmol/L (98-107) 12/04/23 13:25 Carbon Dioxide 19 mmol/L (22-29) L 12/04/23 13:25 Anion Gap 20.4 (5-19) H 12/04/23 13:25 BUN 11 mg/dL (8-23) 12/04/23 13:25 Creatinine 0.7 mg/dL (0.5-0.9) 12/04/23 13:25 GFR Calculation 83.2 mL/min (90-130) L 12/04/23 13:25 Glucose 109 mg/dL (65-115) 12/04/23 13:25 Calculated Osmolality 288 mOsm/kg (285-295) 12/04/23 13:25 Lactic Acid 1.1 mmol/L (0.5-2.2) 12/04/23 12:45 Calcium 8.9 mg/dL (8.5-10.5) 12/04/23 13:25 Magnesium 2.1 mg/dL (1.7-2.3) 12/04/23 12:45 Total Bilirubin 0.4 mg/dL (0.15-1.2) 12/04/23 13:25 AST 25 U/L (0-32) 12/04/23 13:25 ALT 24 U/L (0-33) 12/04/23 13:25 Alkaline Phosphatase 116 U/L (35-105) H 12/04/23 13:25 Creatine Kinase 74 U/L (26-192) 12/04/23 12:45 Total Protein 6.7 g/dL (6.6-8.7) 12/04/23 13:25 Albumin 3.5 g/dL (3.5-5.2) 12/04/23 13:25 Globulin 3.2 g/dL (1.3-4.6) 12/04/23 13:25 Urine Color [place] (Yellow) A 12/04/23 12:05 Urine Appearance Clear (CLEAR) 12/04/23 12:05 Urine pH 7 (5-7) 12/04/23 12:05 Ur Specific [place] 1.010 (1.005-1.030) 12/04/23 12:05 Urine Protein Not tested (Negative) 12/04/23 12:05 Urine Glucose (UA) Norm (Normal) 12/04/23 12:05 Urine Ketones Negative (Negative) 12/04/23 12:05 Urine Blood Neg (Negative) 12/04/23 12:05 Urine Nitrate Not tested (Negative) A 12/04/23 12:05 Urine Bilirubin Not tested (Negative) 12/04/23 12:05 Urine Urobilinogen Not tested mg/dL (Negative) A 12/04/23 12:05 Ur Leukocyte Esterase Trace (Negative) H 12/04/23 12:05 Urine RBC None /hpf (0-2) 12/04/23 12:05 Urine WBC 0-4 /hpf (0-5) H 12/04/23 12:05 Ur Squamous Epith Cells None /hpf (0-5) 12/04/23 12:05 Amorphous Sediment 1+ /hpf 12/04/23 12:05 Urine Bacteria Trace /hpf (NONE) 12/04/23 12:05 Urine Mucus None /hpf 12/04/23 12:05 Ur Oval Fat Bodies 1+ /hpf 12/04/23 12:05 All radiology interpretation(s) finalized by discharge Discharge Plan Discharge Admit Provider: Frederic Joseph Condition: Stable Coding Level of Care Code ED Lamp Stack Developer for Ady Vidal
[2023-12-04 13:05] LABS: ABG PCO2 42.2 mmHg (35-45); Arterial Blood Gas Hematocrit 35.4 % (37-47); Blood Gas Allen Test Pos; Blood Gas Sample Type Arterial; Carboxyhemoglobin 1.1 %THgb (0.4-20.1); HGB O2 Sat 93.6 % (95-100); Ionized Calcium Level - ABG 1.3 mmol/L (1.1-1.4); Methemoglobin 3.1 % (0.4-1.5); Oxygen Saturation ABG 97.7; Potassium Level - ABG 4.2 mmol/L (3.5-5.0); Total Hemoglobin 11.6 g/dL (12-16)
[2023-12-04 13:06] LABS: Blood Gas LPM 2.5 %; Blood Gas Operator Identificat MONRO; Blood Gas Sample Site Brachial, left; Oxygen Device NC; PO2 FiO2 Ratio Arterial Blood 430
[2023-12-04 13:11] LABS: Urine Appearance Clear (CLEAR); Urine Color Orange (Yellow); pH Urine 7 (5-7)
[2023-12-04 13:12] LABS: Add Urine Microscopic? YES; Amorphous Sediment Urine 1+ /hpf; Bacteria Urine TRACE /hpf; Bilirubin Urine Not Tested (Negative); Blood Urine Neg (Negative); Glucose Urine UA Norm (Normal); Ketones Urine Negative (Negative); Leukocyte Esterase Urine Trace (Negative); Nitrate Urine Not Tested (Negative); Oval Fat Bodies Urine 1+ /hpf; Protein Urine Not Tested (Negative); Urobilinogen Urine Not Tested mg/dL (Negative); WBC Urine 0-4 /hpf (0-5)
[2023-12-04 13:13] LABS: Add Urine Culture? No
--- NOTE | 2023-12-04 13:46 | CTR_ITS ---
PROCEDURE INFORMATION: Exam: CT Head Without Contrast Exam date and time: 12/04/2023 2:13 PM Age: 67 years old Clinical indication: Altered mental status/memory loss; Prior surgery; Surgery date: 6+ months; Surgery type: Craniotomy; Additional info: AMS TECHNIQUE: Imaging protocol: Computed tomography of the head without contrast. COMPARISON: CT head wo con* [id number] 06/07/2022 3:39 PM RADIATION DOSE METRICS: Total DLP (mGy-cm): 2603.08 FINDINGS: Brain: Prior left craniotomy with extensive encephalomalacia/gliosis in the frontal and temporal lobe. . No hemorrhage. No mass effect. Cerebral ventricles: No ventriculomegaly. Hydrocephalus ex vacuo on the left, ventricular prominence due to atrophy on the right. Marked cerebellar atrophy. Paranasal sinuses: Visualized sinuses are unremarkable. No fluid levels. Mastoid air cells: Visualized mastoid air cells are well aerated. Bones: Unremarkable. No acute fracture. Soft tissues: Unremarkable. CT/CT head wo con* [id number] IMPRESSION: No acute intracranial abnormality. Extensive chronic changes.
[2023-12-04 13:53] LABS: Lactic Sepsis W/Reflex 1.1 mmol/L (0.5-2.2)
[2023-12-04 13:54] LABS: Creatine Phosphokinase 74 U/L (26-192); Magnesium 2.1 mg/dL (1.7-2.3)
[2023-12-04 14:41] LABS: Basophils # 0.1 10^3/uL (0.0-0.1); Basophils % 0.7 %; Eosinophils # 0.2 10^3/uL (0.0-0.8); Eosinophils % 3.5 %; Hematocrit 36.7 % (36-47); Lymphocytes # 1.6 10^3/uL (0.8-4.8); Mean Corpuscular HGB Conc 30.5 g/dL (30-55); Mean Corpuscular Hemoglobin 34.4 pg (27-33); Mean Corpuscular Volume 112.6 fl (85-98); Mean Platelet Volume 9.4 fL (7.4-10.4); Monocytes # 0.5 10^3/uL (0.2-0.9); Monocytes % 6.9 %; Neutrophils # 4.54 10^3/uL (1.8-7.7); Neutrophils % 65.6 %; Nucleated Red Blood Cells % 0 %; Platelet Count 256 10^3/cmm (157-399); Red Blood Count 3.26 10^6/uL (3.85-5.65); Red Cell Distribution Width 13.8 % (12.1-15.1); White Blood Count 6.92 10^3/uL (3.29-11.43)
[2023-12-04 14:48] LABS: Alanine Aminotransferase 24 U/L (0-33); Albumin Level 3.5 g/dL (3.5-5.2); Alkaline Phosphatase 116 U/L (35-105); Anion Gap 20.4 (5-19); Aspartate Amino Transferase 25 U/L (0-32); Blood Urea Nitrogen 11 mg/dL (8-23); Calcium 8.9 mg/dL (8.5-10.5); Carbon Dioxide 19 mmol/L (22-29); Chloride 104 mmol/L (98-107); Creatinine Clr Calc Pharmacy 50.4046; Globulin 3.2 g/dL (1.3-4.6); Glomerular Filtration Rate 83.2 mL/min (90-130); Glucose 109 mg/dL (65-115); Osmolality Calculated 288 mOsm/kg (285-295); Potassium 4.4 mmol/L (3.5-5.1); Sodium 139 mmol/L (136-145); Total Bilirubin 0.4 mg/dL (0.15-1.2); Total Protein 6.7 g/dL (6.6-8.7)
--- NOTE | 2023-12-04 15:36 | CTR_ITS ---
PROCEDURE INFORMATION: Exam: CTA Chest With Contrast Exam date and time: 12/04/2023 6:35 PM Age: 67 years old Clinical indication: Other: Hypoxia TECHNIQUE: Imaging protocol: Computed tomographic angiography of the chest with contrast. Exam focused on the arteries. 3D rendering (Not supervised by radiologist): MIP and/or 3D reconstructed images were created by the technologist. Radiation optimization: All CT scans at this facility use at least one of these dose optimization techniques: automated exposure control; mA and/or kV adjustment per patient size (includes targeted exams where dose is matched to clinical indication); or iterative reconstruction. Contrast material: OMNI 350; Contrast volume: 100 ml; Contrast route: INTRAVENOUS (IV); COMPARISON: [place] [id number] 06/02/2022 5:43 AM RADIATION DOSE METRICS: Total DLP (mGy-cm): 319.01 FINDINGS: Pulmonary arteries: Evaluation for pulmonary thromboembolism is limited beyond the proximal segmental level due to respiratory motion. No evidence of central PE. There is hypoattenuation within a left lower lobe subsegmental branch, which may be related to motion and atelectasis (for example, images 228-237 of series 6). Aorta: No evidence of aneurysmal dilatation or dissection of the thoracic aorta. Lungs: No focal consolidation. No evidence of pneumonia. Pleural spaces: No evidence of pleural effusion. No pneumothorax. Heart: Moderate cardiomegaly. No pericardial effusion. Mediastinal space: Moderate hiatal hernia with the GE junction and a portion of the gastric cardia above the diaphragm. The esophagus is patulous containing fluid/gastric contents. Lymph nodes: No mediastinal or hilar adenopathy. Bones/joints: No evidence of acute fracture or aggressive osseous lesion. Soft tissues: No evidence of fluid collection or hematoma in the superficial soft tissues. A device is noted in the left anterior chest subcutaneous soft tissues. Other findings: No evidence of acute abnormality in the upper abdomen. Chronic T8 and T12 vertebral body compression fractures. CT/CT angio chest PE protcl [id number] IMPRESSION: 1. No evidence of central PE or acute aortic abnormality. Hypoattenuation is noted within a left lower lobe subsegmental branch, which may be secondary to motion/atelectasis. If there is ongoing clinical concern, consider follow-up exam when patient is able to cooperate. 2. GERD. Consider follow-up outpatient GI evaluation.
--- NOTE | 2023-12-04 16:57 | P.HP_ITS ---
Providers/Chief Complaint 2 Admitting Physician: Frederic Joseph MD Primary Care Provider: Marilyn Trivedi APN Chief Complaint: very lethargic History of Present Illness Dasia Brian is a 67 year old female with a past medical history of seizures, recurrent UTIs, TBI, history of developmental disability, long-term care facility, who presents to [facility] due to altered mental status, hypoxia. Currently patient is alert oriented x 1, does not follow commands, most of the history was provided by caregiver at bedside. According to caregiver patient has a history of developmental disability, wheelchair-bound, requires assistance for activities of daily living, normally is alert awake, can carry out conversations. She has been having issues with a UTI recently, so she was on Bactrim until recently it was stopped. She is also been having breakthrough seizures, last breakthrough seizure was yesterday she had to, potentially could have had an aspiration event during those 2 seizures yesterday. They have also noticed that she has had low-grade fevers over the last 24 hours. She has not been behaving appropriately, over the last few hours, she is less responsive, less interactive, no falls, no injuries, yesterday caregiver tells me that she was able to carry on conversations, she was her normal self, no complaints per se but she has had diffuse pain complaints for which they recently started tramadol Review of Systems 2 General: Reports: ROS unobtainable due to mental status Medications/Allergies Home Medications Medication Instructions Recorded Confirmed Last Taken Type acetaminophen 325 mg capsule 650 mg PO Q6H PRN Pain or elevated 11/25/19 12/04/23 03/09/22 History (Tylenol) temp fluticasone propionate 50 1 spray intranasal DAILY@11/25/19 12/04/23 12/04/23 History mcg/actuation nasal spray,suspension (Flonase Allergy Relief) folic acid 1 mg tablet 1 mg PO DAILY@11/25/19 12/04/23 12/04/23 History montelukast 10 mg tablet 10 mg PO DAILY@11/25/19 12/04/23 12/04/23 History (Singulair) multivitamin 1 tab PO DAILY@11/25/19 12/04/23 12/04/23 History pantoprazole 40 mg tablet,delayed 40 mg PO DAILY@08 0712/04/23 12/04/23 History release (Protonix) phenazopyridine 95 mg tablet (Azo 190 mg PO TID PRN Bladder Spasms 11/25/19 12/04/23 Unknown History Urinary Pain Relief) polyethylene glycol 3350 17 17 gm PO DAILY@08 11/25/19 12/04/23 12/04/23 History gram/dose oral powder (Miralax) simethicone 125 mg capsule (Gas-X 125 mg PO Q8H PRN Stomach Upset 11/25/19 12/04/23 Unknown History Extra Strength) zonisamide 100 mg capsule 100 mg PO BID@,11/25/19 12/04/23 12/04/23 History (Zonegran) Lactobacillus acidophilus 1 tab PO DAILY@10/15/21 12/04/23 12/04/23 History (Acidophilus chewable tablet) albuterol sulfate 90 mcg/actuation 2 puff inhalation QID PRN 10/15/21 12/04/23 03/08/22 History aerosol inhaler Shortness Of Breath clotrimazole 1 % topical cream See Rx Instructions .Route .COMPLEX 10/15/21 12/04/23 Unknown History diclofenac sodium 1 % topical gel 4 g topical QID PRN Pain 10/15/21 12/04/23 Unknown History fluoxetine 20 mg tablet 20 mg PO DAILY@10/15/21 12/04/23 12/03/23 History food supplemt, lactose-reduced 1 ea PO TID@,,10/15/21 12/04/23 12/04/23 History (Nutritional Drink oral liquid) scopolamine base 1 mg over 3 days 1 patch transdermal Q3D 10/15/21 12/04/23 10/15/21 History transdermal patch (Transderm-Scop) triamcinolone acetonide 0.1 % 1 applic topical BID PRN Rash 10/15/21 12/04/23 Unknown History topical cream vitamin B complex 1 tab PO DAILY@12 10/15/21 12/04/23 12/03/23 History nitrofurantoin macrocrystal 100 mg 100 mg PO BEDTIME@03/09/22 12/04/23 12/03/23 History capsule (Macrodantin) ondansetron HCl 4 mg tablet 4 mg PO Q4H PRN Nausea And Vomiting 10/14/22 07/10/24 Unknown History famotidine 20 mg tablet 20 mg PO BID@08,20 06/01/22 12/04/23 12/04/23 History nasal dilators (Breathe Right 06/01/22 12/04/23 Unknown History strips) levetiracetam 500 mg tablet 1,000 mg (2 x 500 mg) PO BID 30 06/06/22 12/04/23 12/04/23 Rx days #60 tabs Cough Drops See Rx Instructions .Route .COMPLEX 06/07/22 12/04/23 Unknown History dextromethorphan-guaifenesin 5 10 ml PO BID PRN Cough 06/07/22 12/04/23 Unknown History mg-100 mg/5 mL oral liquid (Tussin DM Cough and Chest) fluoxetine 10 mg capsule 10 mg PO DAILY@12 06/07/22 12/04/23 12/03/23 History peg 400-propylene glycol 0.4 %-0.3 1 drp ophthalmic (eye) TID 06/07/22 12/04/23 12/04/23 History % eye drops (Systane (propylene glycol)) phenytoin 50 mg chewable tablet 50 mg PO TID@08,14,20 06/07/22 12/04/23 12/04/23 History (Dilantin Infatabs) budesonide-formoterol HFA 80 2 puff inhalation BID 12/04/23 12/04/23 12/04/23 History mcg-4.5 mcg/actuation aerosol inhaler buspirone 10 mg tablet 10 mg PO TID 12/04/23 12/04/23 12/04/23 History clonazepam 0.25 mg disintegrating 0.25 mg PO BID 12/04/23 12/04/23 12/04/23 History tablet cyanocobalamin (vitamin B-12) 1,000 mcg IM Q30D 12/04/23 12/04/23 Unknown History 1,000 mcg/mL injection solution lacosamide 150 mg tablet (Vimpat) 150 mg PO BID 12/04/23 12/04/23 12/04/23 History loperamide 2 mg tablet 2 mg PO QID PRN Diarrhea 12/04/23 12/04/23 Unknown History (Anti-Diarrheal (loperamide)) prednisone 5 mg tablet 5 mg PO QAM 12/04/23 12/04/23 12/04/23 History promethazine-DM 6.25 mg-15 mg/5 mL 5 ml PO Q4H PRN Evening Cough 12/04/23 12/04/23 Unknown History oral syrup sucralfate 100 mg/mL oral 10 ml PO BID 12/04/23 12/04/23 12/04/23 History suspension Allergies Allergy/AdvReac Type Severity Reaction Status Date / Time aspirin Allergy Unknown Verified 12/04/23 11:20 Influenza Virus Vaccines Allergy Unknown Verified 12/04/23 11:20 levofloxacin [From Levaquin] Allergy ALGY-Hives Verified 12/04/23 11:20 vancomycin Allergy ALGY-Hives Verified 12/04/23 11:20 PFSH Acute 2 PFSH: Medical History Acquired intellectual disability Dehydration Altered mental status Rheumatoid arthritis Seizures Brain injury Urinary retention Encephalopathy chronic Generalized epilepsy Epilepsy Surgical History History of craniotomy Family History Other No pertinent family history Social History Smoking and tobacco/nicotine status: never used tobacco/nicotine Vitals/I&O/Wt Last Vital Signs Temp 98.8 F 12/04/23 11:15 Pulse 82 12/04/23 15:58 Resp 16 12/04/23 11:15 BP 127/75 12/04/23 15:58 Pulse Ox 96 12/04/23 15:58 O2 Del Method Room Air 12/04/23 15:58 O2 Flow Rate 3 12/04/23 11:32 Weight last 48 hrs Weight 50.349 kg Physical Exam 2 Const: COMMON NORMALS: no acute distress EXAM LIMITATIONS: altered mental status ORIENTATION/CONSCIOUSNESS: Yes awake and Yes confused; not oriented to person, not oriented to place and not oriented to time HENMT: COMMON NORMALS: normocephalic HEAD & SCALP: normocephalic Eye: OTHER: Right eye, pupillary defect chronically after cataract surgery, both pupils are reactive to light Neck/C-Spine: COMMON NORMALS: no JVD Resp: COMMON NORMALS: normal respiratory effort, No retractions and No use of accessory muscles AUSCULTATION: wheezes Cardio: COMMON NORMALS: no JVD, regular rate, regular rhythm, S1 normal heart sound present and S2 normal heart sound present RATE: regular rate RHYTHM: regular rhythm HEART SOUNDS: S1 normal heart sound present and S2 normal heart sound present GI: COMMON NORMALS: Normal to inspection, nondistended, normoactive bowel sounds present, Soft to palpation and non-tender Extremity: COMMON NORMALS: no calf tenderness and no pedal edema Neuro: OTHER: Does not follow neurologic testing Data 12/04/23 14:36 12/04/23 13:25 Micro: Microbiology 12/04/23 13:30 Blood Culture - Preliminary Blood SPECIMEN COLLECTED 12/04/23 13:25 Blood Culture - Preliminary Blood SPECIMEN COLLECTED A&P Assessment and plan (1) Acute encephalopathy: (2) Hypoxia: (3) Aspiration pneumonia: (4) Breakthrough seizure: Plan Acute encephalopathy # Potentially secondary to aspiration pneumonia ? Neurochecks ? NIH stroke scale ? Aspiration precautions ? Keep n.p.o. ? Check ammonia levels Breakthrough seizures ? Start Keppra IV 1000 mg IV twice daily ? Ativan 1 mg every 4 hours as needed for breakthrough seizures ? Continue home Dilantin ? Continue home Vimpat ? Continue home zonisamide Aspiration pneumonia -possible aspiration event, associated with break through seizure -Monitor respiratory status closely -Continue Zosyn - CT angiogram of the chest due to hypoxia -Respiratory viral panel - sputum cultures -npo -procal, crp IV fluid Ordered troponin series, Full code Lovenox for DVT prophylaxis Attestations 2 Medical Necessity Statement*: Patient requires hospitalization, inpatient, greater than 2 midnights, for acute encephalopathy, acute hypoxia, aspiration pneumonia, breakthrough seizures Diagnoses Acute encephalopathy G93.40 Hypoxia R09.02 Aspiration pneumonia J69.0 Breakthrough seizure G40.919
--- NOTE | 2023-12-04 17:09 | ECG_ITS ---
[facility] Test Date: 2023-12-04 Pat Name: Dasia Brian Department: Room: 252 Gender: Female Plastic Sewer: : 1955 Requested By: Frederic Joseph Order Number: [id number] Cristian MD: Robles Culver M.D. Measurements Intervals [place] Rate: 74 P: 41 WA: 186 QRS: 66 QRSD: 78 T: 61 QT: 390 QTc: 434 Interpretive Statements SINUS RHYTHM Compared to ECG 12/04/2023 12:42:09 No significant changes Electronically Signed On 12-04-2023 17:11:52 CDT by Robles Culver M.D. [id number]
[2023-12-04 17:24] LABS: Troponin(5th) Baseline 18 ng/L (0-10)
[2023-12-04 17:47] LABS: NT Pro B Type Natriuretic Pept 155 pg/mL (0-125)
--- NOTE | 2023-12-04 17:51 | PC.NURSE ---
This nurse received report from CHRIS Villanueva in ER at 1747. Pt to get CT before coming to med surg.
[2023-12-04] MEDS: iohexol 350 mg/mL 500 mL Btl (per mL) IV (18:42)
[2023-12-04] MEDS: sodium chloride 0.9% 1,000 ML 100 ML IV (19:21)
[2023-12-04] MEDS: levETIRAcetam 1,000 MG/100 ML PREMIX 400 MG IV (19:21)
[2023-12-04] MEDS: enoxaparin 40 mg/0.4 mL Syringe SUBCUT (20:03)
[2023-12-04] MEDS: piperacillin-tazobactam 3.375 GM in sodium chloride 0.9% (plus) 50 ML IV (20:26)
[2023-12-04] MEDS: lacosamide 50 mg Tablet 150 MG PO (20:26)
[2023-12-04] MEDS: zonisamide 100 MG Capsule PO (20:48)
--- NOTE | 2023-12-04 21:02 | ECG_ITS ---
[facility] Test Date: 2023-12-04 Pat Name: Dasia Brian Department: Room: 252 Gender: Female Experiential Therapist: : 1955 Requested By: Frederic Joseph Order Number: [id number] Cristian MD: Robles Culver M.D. Measurements Intervals [place] Rate: 66 P: 30 MD: 189 QRS: 43 QRSD: 71 T: 48 QT: 399 QTc: 420 Interpretive Statements SINUS RHYTHM Compared to ECG 12/04/2023 17:09:55 No significant changes Electronically Signed On 12-04-2023 22:44:35 CDT by Robles Culver M.D. [id number]
[2023-12-04 21:32] LABS: Procalcitonin 0.04 ng/mL (0-0.5); Thyroid Stimulating Hormone 0.95 uIU/mL (0.27-4.20)
[2023-12-04 21:42] LABS: C Reactive Protein 7.9 mg/L (0.0-4.9)
[2023-12-04 21:50] LABS: Troponin 5 6HR 17.84 ng/L (0-10)
[2023-12-04 21:51] LABS: Troponin 5 6HR Delta -0.16 ng/L (0-12)
[2023-12-04 22:47] LABS: Adenovirus Not Detected (NOT DETECT); Chlamydia Pneumoniae Not Detected (NOT DETECT); Coronavirus 229E,HKU1,NL63,OC4 Not Detected (NOT DETECT); Human Metapneumovirus Not Detected (NOT DETECT); Human Rhinovirus/Enterovirus Not Detected (NOT DETECT); Influenza A Not Detected (NOT DETECT); Influenza A H1 Not Detected (NOT DETECT); Influenza A H1-2009 Not Detected (NOT DETECT); Influenza A H3 Not Detected (NOT DETECT); Influenza B Not Detected (NOT DETECT); Mycoplasma Pneumoniae Not Detected (NOT DETECT); Parainfluenza Virus Type 1 Not Detected (NOT DETECT); Parainfluenza Virus Type 2 Not Detected (NOT DETECT); Parainfluenza Virus Type 3 Not Detected (NOT DETECT); Parainfluenza Virus Type 4 Not Detected (NOT DETECT); Respiratory Syncytial Virus A Not Detected (NOT DETECT); Respiratory Syncytial Virus B Not Detected (NOT DETECT); SARS-COV-2 Not Detected (NOT DETECT)
--- NOTE | 2023-12-04 22:57 | ECG_ITS ---
[facility] Test Date: 2023-12-05 Pat Name: Dasia Brian Department: Room: 252 Gender: Female Chassis Wirer: : 1955 Requested By: Frederic Joseph Order Number: [id number] Cristian MD: Florida Rivera M.D. Measurements Intervals [place] Rate: 84 P: 17 OR: 144 QRS: 56 QRSD: 96 T: 24 QT: 392 QTc: 465 Interpretive Statements SINUS RHYTHM Compared to ECG 12/04/2023 21:02:25 Nonspecific T wave changes No significant changes Electronically Signed On 12-05-2023 23:27:59 CDT by Florida Rivera M.D. [id number]
[2023-12-05] VITALS (9 sets, daily range): BP systolic 104–150; BP diastolic 61–87; PULSE 66–96; RESP 16–19; TEMP 36.4–36.9; O2SAT 91–98
--- NOTE | 2023-12-05 00:05 | PC.NURSE ---
Patient is too lethargic to participate in NIH stroke scale. She cannot follow commands or answer questions.
--- NOTE | 2023-12-05 02:39 | PC.NURSE ---
pt has had several wet briefs and this financial underwriter and a nurse have changed pts bedding and gown pt is clean and dry at this time
[2023-12-05] MEDS: piperacillin-tazobactam 3.375 GM in sodium chloride 0.9% (plus) 50 ML IV ×3 (03:30→20:57)
[2023-12-05 05:41] LABS: Basophils % 0.2 %; Eosinophils # 0.1 10^3/uL (0.0-0.8); Eosinophils % 0.6 %; Hematocrit 39.6 % (36-47); Lymphocytes # 1.2 10^3/uL (0.8-4.8); Lymphocytes % 7.4 %; Mean Corpuscular HGB Conc 30.8 g/dL (30-55); Mean Corpuscular Hemoglobin 34.3 pg (27-33); Mean Corpuscular Volume 111.2 fl (85-98); Mean Platelet Volume 9.4 fL (7.4-10.4); Monocytes # 0.7 10^3/uL (0.2-0.9); Monocytes % 4.2 %; Neutrophils # 13.98 10^3/uL (1.8-7.7); Neutrophils % 87.2 %; Nucleated Red Blood Cells % 0 %; Platelet Count 254 10^3/cmm (157-399); Red Blood Count 3.56 10^6/uL (3.85-5.65); Red Cell Distribution Width 13.6 % (12.1-15.1); White Blood Count 16.03 10^3/uL (3.29-11.43)
[2023-12-05 06:00] LABS: Anion Gap 14.9 (5-19); Blood Urea Nitrogen 14 mg/dL (8-23); Calcium 8.3 mg/dL (8.5-10.5); Carbon Dioxide 24 mmol/L (22-29); Chloride 108 mmol/L (98-107); Creatinine Clr Calc Pharmacy 48.9345; Glomerular Filtration Rate 83.2 mL/min (90-130); Glucose 116 mg/dL (65-115); Osmolality Calculated 297 mOsm/kg (285-295); Potassium 3.9 mmol/L (3.5-5.1); Sodium 143 mmol/L (136-145)
[2023-12-05] MEDS: levETIRAcetam 1,000 MG/100 ML PREMIX 400 MG IV (06:13)
[2023-12-05] MEDS: sodium chloride 0.9% 1,000 ML 100 ML IV ×2 (06:13→15:16)
--- NOTE | 2023-12-05 09:00 | PC.CHAP ---
Pastoral Care Encounter/Spiritual Assessment Type of Contact [] Declined bleacher kraft pulp visit [] Patient/Family/Request visit [] Outpatient visit [] Follow-up visit [] Physician referral [] Code/Alert [x] Routine visit [] Staff referral [] Actively dying [] Patient sleeping [x] Family support [] [] Out of room [] Palliative care [] [] Receiving care in room [] Pre-surgical visit [] Trauma [] Long length of stay [] ICU visit [] Other: Relational/Emotional Strength [x] Patient feels connected with others/family/visitors/staff [] Distress [] Loneliness/isolation [] Abandonment Spirituality of Patient [x] Person of Myesha [] Attends Anglican of their Myesha [x] Believes in Prayer [] Reads Bible or Rastafarian materials [] There are Spiritual issues to be addressed [employer] Associate Interventions [x] Prayer [x] Active listening [] Non-anxious presence [x] Spiritual/emotional support [] Crisis/trauma care [] Spiritual counseling [] Bereavement support [] Provided bereavement packet [] Provided Bible/devotional materials [] Provided toy/stuffed animal, coloring book to patient or family member [] Provided Communion [] Anointing/[place] [] Salvation [x] Completed spiritual assessment [] Other: Impact on Illness or Injury [] Angry [] Fearful [] Anxious [] Often cries [] Exhaustion [] Unable to work [] Unable to attend temple [] Unable to walk/stand [] Unable to read [] Unable to drive [] Unable to eat/drink [] Unable to sleep [] Unable to be with family [] Patient intubated [] Other: Summary Time spent with patient 5 min
--- NOTE | 2023-12-05 11:50 | P.PN_ITS ---
Subjective 2 Subjective: Patient was seen this morning, she is alert to person, to place, not to time she follows commands, reports that she is hungry, her caregiver at bedside tells me that she is back to near her baseline, she denies any abdominal pain, no chest pain, Vitals/I&O/Wt Last Vital Signs Temp 97.7 F 12/05/23 07:23 Pulse 80 12/05/23 09:59 Resp 17 12/05/23 09:59 BP 104/70 12/05/23 07:23 Pulse Ox 98 12/05/23 09:59 O2 Del Method Nasal Cannula 12/05/23 09:59 O2 Flow Rate 3 12/05/23 09:59 12/04/23 12/05/23 12/05/23 22:59 06:59 14:59 Intake Total 100 / 100 1150 / 1250 50 / 50 Balance 100 / 100 1150 / 1250 50 / 50 Weight last 48 hrs Weight 46.89 kg Weight 46.011 kg Weight 50.349 kg Physical Exam 2 Const: COMMON NORMALS: no acute distress ORIENTATION/CONSCIOUSNESS: Yes awake, Yes oriented to person and Yes oriented to place Resp: COMMON NORMALS: normal respiratory effort, No retractions, No use of accessory muscles and clear to auscultation bilaterally AUSCULTATION: clear to auscultation bilaterally Cardio: COMMON NORMALS: regular rate, regular rhythm, S1 normal heart sound present and S2 normal heart sound present RATE: regular rate RHYTHM: r egular rhythm HEART SOUNDS: S1 normal heart sound present and S2 normal heart sound present GI: COMMON NORMALS: Normal to inspection, nondistended, normoactive bowel sounds present and non-tender Extremity: COMMON NORMALS: no pedal edema Neuro: SENSORIUM/ORIENTATION: Yes oriented to person and Yes oriented to place Psych: COMMON NORMALS: mental status grossly normal Data 12/05/23 05:29 12/05/23 05:29 Micro: Microbiology 12/04/23 13:30 Blood Culture - Preliminary Blood SPECIMEN COLLECTED 12/04/23 13:25 Blood Culture - Preliminary Blood SPECIMEN COLLECTED A&P Assessment and plan (1) Acute encephalopathy: (2) Hypoxia: (3) Aspiration pneumonia: (4) Breakthrough seizure: Plan Acute encephalopathy, resolving # Potentially secondary to aspiration pneumonia ? Neurochecks ? NIH stroke scale ? Aspiration precautions ? Keep n.p.o., speech therapy eval ? Check ammonia levels Breakthrough seizures ? Start Keppra IV 1000 mg IV twice daily ? Ativan 1 mg every 4 hours as needed for breakthrough seizures ? Continue home Dilantin ? Continue home Vimpat ? Continue home zonisamide Aspiration pneumonia -possible aspiration event, associated with break through seizure -Monitor respiratory status closely -Continue Zosyn - CT angiogram of the chest due to hypoxia, no focal consolidation however she does have a hiatal hernia which puts her at risk of aspiration events -Respiratory viral panel negative - sputum cultures -npo, pending speech therapy eval IV fluid Ordered troponin series, Full code Lovenox for DVT prophylaxis Plan for today continue Zosyn, speech therapy eval, possible diet advancement, continue IV Keppra until she passes her swallow eval, has a hiatal hernia, monitor for aspiration events Attestations 2 Medical Necessity Statement*: Patient requires hospitalization for acute encephalopathy, hypoxia, aspiration pneumonia Diagnoses Acute encephalopathy G93.40 Hypoxia R09.02 Aspiration pneumonia J69.0 Breakthrough seizure G40.919
--- NOTE | 2023-12-05 12:03 | PC.SLP ---
LOOSELEAF BINDER COVERER attempted eval. Pt not alert enough to participate at this time.
--- NOTE | 2023-12-05 12:52 | PC.NURSE ---
Social Drivers of Health Screening completed with caregiver at bedside.
--- NOTE | 2023-12-05 13:33 | PC.NURSE ---
Patient's caregiver came to the desk and inquired about bringing in patient's Dilantin for hospital use. I called and spoke with Renee Gutierrez in pharmacy and she states we typically carry 100 mg capsules and 25 mg/1mL in a liquid form, however we are currently out of liquid. We asked that patient's home Dilantin be brought in for labeling and use while patient is hospitalized. Caregiver agreed and stated her supervisor firearms from her facility would be bringing that med up as soon as she can. I informed Luz Elena Luque LPN primary nurse of the above information.
[2023-12-05] MEDS: sucralfate 1 gm/10 mL Oral Liq UDC PO (17:16)
[2023-12-05] MEDS: lacosamide 50 mg Tablet 150 MG PO (17:16)
[2023-12-05] MEDS: enoxaparin 40 mg/0.4 mL Syringe SUBCUT (17:17)
[2023-12-05] MEDS: levETIRAcetam 1,000 MG/100 ML PREMIX 100 MG IV (17:17)
[2023-12-05] MEDS: zonisamide 100 MG Capsule PO (20:58)
[2023-12-05] MEDS: BuSPIRONE 10 mg Tablet PO (20:58)
[2023-12-06] VITALS (9 sets, daily range): BP systolic 98–151; BP diastolic 59–83; PULSE 72–97; RESP 16–18; TEMP 36.4–36.8; O2SAT 95–100
[2023-12-06] MEDS: sodium chloride 0.9% 1,000 ML 100 ML IV (01:11)
[2023-12-06] MEDS: piperacillin-tazobactam 3.375 GM in sodium chloride 0.9% (plus) 50 ML IV ×3 (03:56→20:52)
[2023-12-06] MEDS: levETIRAcetam 1,000 MG/100 ML PREMIX 400 MG IV (06:10)
[2023-12-06] MEDS: predniSONE 5 mg Tablet PO (06:10)
[2023-12-06 06:58] LABS: Basophils % 0.3 %; Eosinophils # 0.2 10^3/uL (0.0-0.8); Eosinophils % 3.2 %; Hematocrit 32.2 % (36-47); Lymphocytes % 28.7 %; Mean Corpuscular HGB Conc 29.8 g/dL (30-55); Mean Corpuscular Hemoglobin 34.2 pg (27-33); Mean Corpuscular Volume 114.6 fl (85-98); Mean Platelet Volume 9.2 fL (7.4-10.4); Monocytes # 0.3 10^3/uL (0.2-0.9); Monocytes % 4.2 %; Neutrophils # 4.36 10^3/uL (1.8-7.7); Neutrophils % 63.2 %; Nucleated Red Blood Cells % 0 %; Platelet Count 205 10^3/cmm (157-399); Red Blood Count 2.81 10^6/uL (3.85-5.65); Red Cell Distribution Width 13.5 % (12.1-15.1)
[2023-12-06 07:15] LABS: Anion Gap 13.6 (5-19); Blood Urea Nitrogen 10 mg/dL (8-23); Calcium 7.1 mg/dL (8.5-10.5); Carbon Dioxide 21 mmol/L (22-29); Chloride 111 mmol/L (98-107); Creatinine Clr Calc Pharmacy 49.6817; Glomerular Filtration Rate 122.7 mL/min (90-130); Glucose 91 mg/dL (65-115); Osmolality Calculated 293 mOsm/kg (285-295); Potassium 3.6 mmol/L (3.5-5.1); Sodium 142 mmol/L (136-145)
[2023-12-06] MEDS: montelukast sodium 10 mg Tablet PO (08:07)
[2023-12-06] MEDS: zonisamide 100 MG Capsule PO ×2 (08:07→20:50)
[2023-12-06] MEDS: sucralfate 1 gm/10 mL Oral Liq UDC PO ×2 (08:07→17:40)
[2023-12-06] MEDS: pantoprazole DR 40 mg Tablet PO (08:08)
[2023-12-06] MEDS: BuSPIRONE 10 mg Tablet PO ×3 (08:08→20:50)
[2023-12-06] MEDS: polyethylene glycol 3350 Pkt 17 gm PO (08:08)
[2023-12-06] MEDS: multivitamin therapeutic Tablet 1 TAB PO (08:08)
[2023-12-06] MEDS: lacosamide 50 mg Tablet 150 MG PO ×2 (08:08→17:40)
[2023-12-06] MEDS: fluoxetine 20 mg Capsule PO (12:19)
[2023-12-06] MEDS: fluoxetine 10 mg Capsule PO (12:19)
--- NOTE | 2023-12-06 13:26 | P.PN_ITS ---
Subjective 2 Subjective: Patient was seen this morning, she is alert to person, not place, not to time, she can follow commands, caregiver at bedside tells me that she is more confused Vitals/I&O/Wt Last Vital Signs Temp 98.3 F 12/06/23 11:51 Pulse 72 12/06/23 11:51 Resp 17 12/06/23 11:51 BP 110/67 12/06/23 11:51 Pulse Ox 100 12/06/23 11:51 O2 Del Method Nasal Cannula 12/06/23 11:51 O2 Flow Rate 3 12/06/23 08:24 12/05/23 12/06/23 12/06/23 22:59 06:59 14:59 Intake Total 1155 / 1205 1141.667 / 2346.667 1358.333 / 1358.333 Output Total 1000 / 1000 350 / 1350 900 / 900 Balance 155 / 205 791.667 / 996.667 458.333 / 458.333 Weight last 48 hrs Weight 48.648 kg Weight 46.89 kg Weight 46.011 kg Physical Exam 2 Const: COMMON NORMALS: no acute distress ORIENTATION/CONSCIOUSNESS: Yes awake and Yes oriented to person; not oriented to place and not oriented to time Resp: COMMON NORMALS: normal respiratory effort, No retractions, No use of accessory muscles and clear to auscultation bilaterally AUSCULTATION: clear to auscultation bilaterally Cardio: COMMON NORMALS: regular rate, regular rhythm, S1 normal heart sound present and S2 normal heart sound present RATE: regular rate RHYTHM: r egular rhythm HEART SOUNDS: S1 normal heart sound present and S2 normal heart sound present GI: COMMON NORMALS: Normal to inspection, nondistended, normoactive bowel sounds present and non-tender Extremity: COMMON NORMALS: no pedal edema Neuro: SENSORIUM/ORIENTATION: Yes oriented to person, No oriented to place and No oriented to time Urinary Catheter Management: [place]: Cath Placed During This Visit: yes Reason for Continuing Indwelling Catheter: Acute Urinary Retention or Obstruction Urinary Catheter Date of Insertion: 12/05/23 Urinary Catheter Time of Insertion: 18:33 Data 12/06/23 06:50 12/06/23 06:50 Micro: Microbiology 12/04/23 13:30 Blood Culture - Preliminary Blood NEGATIVE TO DATE 12/04/23 13:25 Blood Culture - Preliminary Blood NEGATIVE TO DATE A&P Assessment and plan (1) Acute encephalopathy: (2) Hypoxia: (3) Aspiration pneumonia: (4) Breakthrough seizure: Plan Acute encephalopathy, # Potentially secondary to aspiration pneumonia ? Neurochecks ? NIH stroke scale ? Aspiration precautions ?Dysphagia level 5 diet ? Check ammonia levels Breakthrough seizures ? Keppra po 1000 mg twice daily ? Ativan 1 mg every 4 hours as needed for breakthrough seizures ? Continue home Dilantin ? Continue home Vimpat ? Continue home zonisamide Aspiration pneumonia -possible aspiration event, associated with break through seizure -Monitor respiratory status closely -Continue Zosyn - CT angiogram of the chest due to hypoxia, no focal consolidation however she does have a hiatal hernia which puts her at risk of aspiration events -Respiratory viral panel negative - sputum cultures Full code Lovenox for DVT prophylaxis Plan for today continue Zosyn, speech therapy eval, possible diet advancement, potentially breakthrough seizures as patient has not seen Dilantin, received Dilantin, monitor for recurrent seizures, monitor mentation Attestations 2 Medical Necessity Statement*: Patient requires hospitalization for acute encephalopathy Diagnoses Acute encephalopathy G93.40 Hypoxia R09.02 Aspiration pneumonia J69.0 Breakthrough seizure G40.919
[2023-12-06] MEDS: PHENYTOIN 50 MG 50 EACH PO ×2 (14:21→20:51)
[2023-12-06] MEDS: levETIRAcetam 500 mg Tablet 1000 MG PO (17:39)
[2023-12-06] MEDS: enoxaparin 40 mg/0.4 mL Syringe SUBCUT (17:40)
[2023-12-07] VITALS (10 sets, daily range): BP systolic 110–137; BP diastolic 58–88; PULSE 72–118; RESP 15–19; TEMP 36.5–37; O2SAT 92–100
[2023-12-07] MEDS: piperacillin-tazobactam 3.375 GM in sodium chloride 0.9% (plus) 50 ML IV ×3 (03:34→20:04)
[2023-12-07 04:10] LABS: Basophils % 0.1 %; Eosinophils # 0.3 10^3/uL (0.0-0.8); Eosinophils % 3.6 %; Hematocrit 31.6 % (36-47); Lymphocytes # 2.7 10^3/uL (0.8-4.8); Lymphocytes % 39.7 %; Mean Corpuscular HGB Conc 30.4 g/dL (30-55); Mean Corpuscular Hemoglobin 33.8 pg (27-33); Mean Corpuscular Volume 111.3 fl (85-98); Mean Platelet Volume 9.7 fL (7.4-10.4); Monocytes # 0.4 10^3/uL (0.2-0.9); Monocytes % 5.7 %; Neutrophils # 3.49 10^3/uL (1.8-7.7); Neutrophils % 50.6 %; Nucleated Red Blood Cells % 0 %; Platelet Count 194 10^3/cmm (157-399); Red Blood Count 2.84 10^6/uL (3.85-5.65); Red Cell Distribution Width 13.2 % (12.1-15.1)
[2023-12-07 04:29] LABS: Anion Gap 13.5 (5-19); Blood Urea Nitrogen 8 mg/dL (8-23); Calcium 7.9 mg/dL (8.5-10.5); Carbon Dioxide 23 mmol/L (22-29); Chloride 109 mmol/L (98-107); Glomerular Filtration Rate 122.7 mL/min (90-130); Glucose 86 mg/dL (65-115); Osmolality Calculated 292 mOsm/kg (285-295); Potassium 3.5 mmol/L (3.5-5.1); Sodium 142 mmol/L (136-145)
[2023-12-07] MEDS: predniSONE 5 mg Tablet PO (05:26)
[2023-12-07] MEDS: sucralfate 1 gm/10 mL Oral Liq UDC PO ×2 (09:46→18:20)
[2023-12-07] MEDS: pantoprazole DR 40 mg Tablet PO (09:47)
[2023-12-07] MEDS: BuSPIRONE 10 mg Tablet PO ×3 (09:47→20:04)
[2023-12-07] MEDS: levETIRAcetam 500 mg Tablet 1000 MG PO ×2 (09:47→18:20)
[2023-12-07] MEDS: zonisamide 100 MG Capsule PO ×2 (09:47→20:04)
[2023-12-07] MEDS: multivitamin therapeutic Tablet 1 TAB PO (09:48)
[2023-12-07] MEDS: montelukast sodium 10 mg Tablet PO (09:48)
[2023-12-07] MEDS: PHENYTOIN 50 MG 50 EACH PO ×3 (09:48→20:04)
[2023-12-07] MEDS: lacosamide 50 mg Tablet 150 MG PO ×2 (09:52→18:19)
[2023-12-07] MEDS: fluoxetine 10 mg Capsule PO (11:38)
[2023-12-07] MEDS: fluoxetine 20 mg Capsule PO (11:38)
--- NOTE | 2023-12-07 17:03 | P.PN_ITS ---
Subjective 2 Subjective: Patient was seen this morning, caregiver is at bedside, she had 1 episode of seizures yesterday afternoon, this morning she is alert to person, not to place, not to time she is much more alert and awake, more receptive, Vitals/I&O/Wt Last Vital Signs Temp 97.7 F 12/07/23 16:14 Pulse 83 12/07/23 16:14 Resp 17 12/07/23 16:14 BP 126/61 12/07/23 16:14 Pulse Ox 95 12/07/23 16:14 O2 Del Method Room Air 12/07/23 16:14 O2 Flow Rate 2 12/07/23 08:51 12/07/23 12/07/23 12/07/23 06:59 14:59 22:59 Intake Total 50 / 1698.333 530 / 530 50 / 580 Output Total 1800 / 1800 Balance 50 / 648.333 -1270 / -1270 50 / -1220 Weight last 48 hrs Weight 53.07 kg Weight 48.648 kg Physical Exam 2 Const: COMMON NORMALS: no acute distress ORIENTATION/CONSCIOUSNESS: Yes awake and Yes oriented to person; not oriented to place and not oriented to time Resp: COMMON NORMALS: normal respiratory effort, No retractions, No use of accessory muscles and clear to auscultation bilaterally AUSCULTATION: clear to auscultation bilaterally Cardio: COMMON NORMALS: regular rate, regular rhythm, S1 normal heart sound present and S2 normal heart sound present RATE: regular rate RHYTHM: r egular rhythm HEART SOUNDS: S1 normal heart sound present and S2 normal heart sound present GI: COMMON NORMALS: Normal to inspection, nondistended, normoactive bowel sounds present and non-tender Extremity: COMMON NORMALS: no pedal edema Neuro: SENSORIUM/ORIENTATION: Yes oriented to person, No oriented to place and No oriented to time Urinary Catheter Management: [place]: Cath Placed During This Visit: yes Reason for Continuing Indwelling Catheter: Other Urinary Catheter Date of Insertion: 12/05/23 Urinary Catheter Time of Insertion: 18:33 Data 12/07/23 02:45 12/07/23 02:45 A&P Assessment and plan (1) Acute encephalopathy: (2) Hypoxia: (3) Aspiration pneumonia: (4) Breakthrough seizure: Plan Acute encephalopathy, resolving # Potentially secondary to aspiration pneumonia ? Neurochecks ? NIH stroke scale ? Aspiration precautions ?Dysphagia level 5 diet ? Check ammonia levels Breakthrough seizures ? Keppra po 1000 mg twice daily ? Ativan 1 mg every 4 hours as needed for breakthrough seizures ? Continue home Dilantin ? Continue home Vimpat ? Continue home zonisamide -Continues to have breakthrough seizures, Monitor, clonazepam 0.25 mg twice daily scheduled Aspiration pneumonia -possible aspiration event, associated with break through seizure -Monitor respiratory status closely -Continue Zosyn - CT angiogram of the chest due to hypoxia, no focal consolidation however she does have a hiatal hernia which puts her at risk of aspiration events -Respiratory viral panel negative - sputum cultures Full code Lovenox for DVT prophylaxis Plan for today monitor for breakthrough seizures, continue broad-spectrum antibiotic therapy Attestations 2 Medical Necessity Statement*: Patient requires hospitalization for breakthrough seizures, pneumonia Diagnoses Acute encephalopathy G93.40 Hypoxia R09.02 Aspiration pneumonia J69.0 Breakthrough seizure G40.919
[2023-12-07] MEDS: CLONazepam 0.5 mg Tablet 0.25 MG PO (18:20)
[2023-12-07] MEDS: enoxaparin 40 mg/0.4 mL Syringe SUBCUT (18:20)
[2023-12-08] VITALS (9 sets, daily range): BP systolic 122–146; BP diastolic 70–81; PULSE 66–79; RESP 15–19; TEMP 36.4–36.8; O2SAT 88–100
[2023-12-08 04:09] LABS: Basophils % 0.3 %; Eosinophils # 0.3 10^3/uL (0.0-0.8); Eosinophils % 4.9 %; Lymphocytes # 2.8 10^3/uL (0.8-4.8); Lymphocytes % 45.6 %; Mean Corpuscular HGB Conc 31.3 g/dL (30-55); Mean Corpuscular Hemoglobin 34.2 pg (27-33); Mean Corpuscular Volume 109.2 fl (85-98); Mean Platelet Volume 9.8 fL (7.4-10.4); Monocytes # 0.4 10^3/uL (0.2-0.9); Monocytes % 6.2 %; Neutrophils # 2.61 10^3/uL (1.8-7.7); Neutrophils % 42.5 %; Nucleated Red Blood Cells % 0 %; Platelet Count 225 10^3/cmm (157-399); Red Blood Count 2.84 10^6/uL (3.85-5.65); Red Cell Distribution Width 13.3 % (12.1-15.1); White Blood Count 6.14 10^3/uL (3.29-11.43)
[2023-12-08] MEDS: predniSONE 5 mg Tablet PO (05:20)
[2023-12-08] MEDS: piperacillin-tazobactam 3.375 GM in sodium chloride 0.9% (plus) 50 ML IV ×3 (05:20→19:31)
[2023-12-08] MEDS: montelukast sodium 10 mg Tablet PO (09:06)
[2023-12-08] MEDS: levETIRAcetam 500 mg Tablet 1000 MG PO ×2 (09:06→17:30)
[2023-12-08] MEDS: multivitamin therapeutic Tablet 1 TAB PO (09:06)
[2023-12-08] MEDS: CLONazepam 0.5 mg Tablet 0.25 MG PO ×2 (09:06→17:30)
[2023-12-08] MEDS: BuSPIRONE 10 mg Tablet PO ×3 (09:06→20:49)
[2023-12-08] MEDS: zonisamide 100 MG Capsule PO ×2 (09:07→19:31)
[2023-12-08] MEDS: pantoprazole DR 40 mg Tablet PO (09:07)
[2023-12-08] MEDS: sucralfate 1 gm/10 mL Oral Liq UDC PO ×2 (09:07→17:30)
[2023-12-08] MEDS: polyethylene glycol 3350 Pkt 17 gm PO (09:07)
[2023-12-08] MEDS: lacosamide 50 mg Tablet 150 MG PO ×2 (09:12→17:30)
[2023-12-08] MEDS: PHENYTOIN 50 MG 50 EACH PO ×3 (09:12→19:30)
[2023-12-08] MEDS: fluoxetine 20 mg Capsule PO (12:18)
[2023-12-08] MEDS: fluoxetine 10 mg Capsule PO (12:18)
--- NOTE | 2023-12-08 15:46 | P.PN_ITS ---
Subjective 2 Subjective: Patient was seen this morning, she is alert to person, not to place, not to time, she is alert, she had breakfast this morning, no known breakthrough seizures, she is a bit more confused this morning, no known episodes of aspiration, no known episodes recently of seizures Vitals/I&O/Wt Last Vital Signs Temp 97.7 F 12/08/23 11:20 Pulse 67 12/08/23 11:20 Resp 16 12/08/23 11:20 BP 127/81 12/08/23 11:20 Pulse Ox 96 12/08/23 11:20 O2 Del Method Nasal Cannula 12/08/23 11:20 O2 Flow Rate 2 12/08/23 08:43 12/08/23 12/08/23 12/08/23 06:59 14:59 22:59 Intake Total 50 / 1110 290 / 290 Output Total 200 / 2750 Balance -150 / -1640 290 / 290 Weight last 48 hrs Weight 53.552 kg Weight 53.07 kg Physical Exam 2 Const: COMMON NORMALS: no acute distress ORIENTATION/CONSCIOUSNESS: Yes awake and Yes oriented to person; not oriented to place and not oriented to time Resp: COMMON NORMALS: normal respiratory effort, No retractions, No use of accessory muscles and clear to auscultation bilaterally AUSCULTATION: clear to auscultation bilaterally Cardio: COMMON NORMALS: regular rate, regular rhythm, S1 normal heart sound present and S2 normal heart sound present RATE: regular rate RHYTHM: r egular rhythm HEART SOUNDS: S1 normal heart sound present and S2 normal heart sound present GI: COMMON NORMALS: Normal to inspection, nondistended, normoactive bowel sounds present and non-tender Extremity: COMMON NORMALS: no pedal edema Neuro: SENSORIUM/ORIENTATION: Yes oriented to person, No oriented to place and No oriented to time Psych: COMMON NORMALS: mental status grossly normal Urinary Catheter Management: [place]: Cath Placed During This Visit: yes Reason for Continuing Indwelling Catheter: Acute Urinary Retention or Obstruction Urinary Catheter Date of Insertion: 12/05/23 Urinary Catheter Time of Insertion: 18:33 Data 12/08/23 02:28 12/07/23 02:45 A&P Assessment and plan (1) Acute encephalopathy: (2) Hypoxia: (3) Aspiration pneumonia: (4) Breakthrough seizure: Plan Acute encephalopathy, resolving # Potentially secondary to aspiration pneumonia ? Neurochecks ? NIH stroke scale ? Aspiration precautions ?Dysphagia level 5 diet ? Check ammonia levels Breakthrough seizures ? Keppra po 1000 mg twice daily ? Ativan 1 mg every 4 hours as needed for breakthrough seizures ? Continue home Dilantin ? Continue home Vimpat ? Continue home zonisamide -Continues to have breakthrough seizures, Monitor, clonazepam 0.25 mg twice daily scheduled Aspiration pneumonia -possible aspiration event, associated with break through seizure -Monitor respiratory status closely -Continue Zosyn - CT angiogram of the chest due to hypoxia, no focal consolidation however she does have a hiatal hernia which puts her at risk of aspiration events -Respiratory viral panel negative - sputum cultures Full code Lovenox for DVT prophylaxis Plan for today monitor for breakthrough seizures, continue broad-spectrum antibiotic therapy Attestations 2 Medical Necessity Statement*: Continue to monitor for recurrent breakthrough seizures, continue antibiotics Diagnoses Acute encephalopathy G93.40 Hypoxia R09.02 Aspiration pneumonia J69.0 Breakthrough seizure G40.919
[2023-12-08] MEDS: enoxaparin 40 mg/0.4 mL Syringe SUBCUT (18:07)
[2023-12-09] VITALS (7 sets, daily range): BP systolic 118–125; BP diastolic 72–79; PULSE 69–77; RESP 17–20; TEMP 36.4–37.2; O2SAT 93–98
[2023-12-09] MEDS: piperacillin-tazobactam 3.375 GM in sodium chloride 0.9% (plus) 50 ML IV (03:45)
[2023-12-09 05:14] LABS: Basophils % 0.5 %; Eosinophils # 0.3 10^3/uL (0.0-0.8); Eosinophils % 5.7 %; Hematocrit 32.6 % (36-47); Lymphocytes # 1.8 10^3/uL (0.8-4.8); Lymphocytes % 32.3 %; Mean Corpuscular HGB Conc 31.3 g/dL (30-55); Mean Corpuscular Hemoglobin 34.2 pg (27-33); Mean Corpuscular Volume 109.4 fl (85-98); Mean Platelet Volume 9.4 fL (7.4-10.4); Monocytes # 0.4 10^3/uL (0.2-0.9); Monocytes % 6.6 %; Neutrophils # 3.07 10^3/uL (1.8-7.7); Neutrophils % 54.7 %; Nucleated Red Blood Cells % 0 %; Platelet Count 219 10^3/cmm (157-399); Red Blood Count 2.98 10^6/uL (3.85-5.65); Red Cell Distribution Width 13.5 % (12.1-15.1); White Blood Count 5.61 10^3/uL (3.29-11.43)
[2023-12-09 05:37] LABS: Anion Gap 9.5 (5-19); Blood Urea Nitrogen 5 mg/dL (8-23); Calcium 7.9 mg/dL (8.5-10.5); Carbon Dioxide 26 mmol/L (22-29); Chloride 113 mmol/L (98-107); Creatinine Clr Calc Pharmacy 51.7659; Glomerular Filtration Rate 122.7 mL/min (90-130); Glucose 126 mg/dL (65-115); Osmolality Calculated 299 mOsm/kg (285-295); Potassium 3.5 mmol/L (3.5-5.1); Sodium 145 mmol/L (136-145)
[2023-12-09] MEDS: predniSONE 5 mg Tablet PO (05:56)
[2023-12-09] MEDS: pantoprazole DR 40 mg Tablet PO (08:42)
[2023-12-09] MEDS: BuSPIRONE 10 mg Tablet PO (08:42)
[2023-12-09] MEDS: montelukast sodium 10 mg Tablet PO (08:42)
[2023-12-09] MEDS: zonisamide 100 MG Capsule PO (08:42)
[2023-12-09] MEDS: sucralfate 1 gm/10 mL Oral Liq UDC PO (08:43)
[2023-12-09] MEDS: levETIRAcetam 500 mg Tablet 1000 MG PO (08:43)
[2023-12-09] MEDS: multivitamin therapeutic Tablet 1 TAB PO (08:43)
[2023-12-09] MEDS: CLONazepam 0.5 mg Tablet 0.25 MG PO (08:43)
[2023-12-09] MEDS: lacosamide 50 mg Tablet 150 MG PO (08:51)
[2023-12-09] MEDS: PHENYTOIN 50 MG 50 EACH PO ×2 (09:07→14:36)
--- NOTE | 2023-12-09 09:27 | PC.SOCIAL ---
IMM Updated Updated pt & her staff on IMM. No questions voiced. Provided pt a copy. Initialed, dated, & timed copy in chart.
--- NOTE | 2023-12-09 11:20 | P.DS_ITS ---
Discharge Providers Date of Admission: 12/04/23 16:45 Date of Discharge: December 09, 2023 Attending Provider at Admission: Frederic Joseph MD Attending Provider at Discharge: Frederic Joseph MD Primary Care Provider: Marilyn Trivedi APN Diagnoses at Discharge Discharge Diagnosis (1) Acute encephalopathy: Status: Acute (2) Hypoxia: Status: Acute (3) Aspiration pneumonia: Status: Acute (4) Breakthrough seizure: Status: Acute Reason for Visit Reason for Visit: very lethargic Hospital Course Hospital Course Wendy Brian is a 67 year old female with a past medical history of seizures, recurrent UTIs, TBI, history of developmental disability, long-term care facility, who presents to [facility] due to altered mental status, hypoxia. Currently patient is alert oriented x 1, does not follow commands, most of the history was provided by caregiver at bedside. According to caregiver patient has a history of developmental disability, wheelchair-bound, requires assistance for activities of daily living, normally is alert awake, can carry out conversations. She has been having issues with a UTI recently, so she was on Bactrim until recently it was stopped. She is also been having breakthrough seizures, last breakthrough seizure was yesterday she had to, potentially could have had an aspiration event during those 2 seizures yesterday. They have also noticed that she has had low-grade fevers over the last 24 hours. She has not been behaving appropriately, over the last few hours, she is less responsive, less interactive, no falls, no injuries, yesterday caregiver tells me that she was able to carry on conversations, she was her normal self, no complaints per se but she has had diffuse pain complaints for which they recently started tramadol This is a pleasant 67-year-old female, who was admitted to [facility] for aspiration pneumonia, aspiration pneumonitis, was monitored as inpatient received broad-spectrum antibiotic therapy, speech therapy saw patient, she has been placed on a dysphagia level 5 diet, moderately thick liquids. Overall patient's clinical condition improved, but she does have a weak cough, poor throat clearing ability. I spoke to patient's healthcare power of traffic law attorney Mayte Villagomez about patient's care. I discussed that options are available to wendy continue medical interventions, aspiration precautions, adhering to dysphagia diet/moderately thick liquids, and if she does develop pneumonia early administration of antibiotics. However this option does carry significant risk of morbidity and mortality risk of recurrent hospitalizations, however this option would emphasize a better quality of life given her history of TBI and developmental disability. The second option would be to place a feeding tube, this would minimize the risk of aspiration, allow her to get her basic level of nutrition, however she would be n.p.o., which would be a significant determinant on her quality of life. Mayte tells me that Wendy has already had a feeding tube which was removed in the past. Mayte wants Wendy to have a better quality of life, she wants us to emphasize her quality of life and comfort, after discussing with her the risk and benefits of all options, she voiced understanding, all questions answered,shared Decision making, agreed to proceed with medical management. Will discharge Wendy to the assisted living facility, on aspiration precautions, dysphagia level 5 diet, minced and moist, moderately thickened liquids, instructions to monitor for aspiration events, monitor for aspiration pneumonia, if any concerns bring her back to the hospital. Patient did have episodes of breakthrough seizures during her hospitalization, she was optimized on her seizure medications, no breakthrough seizures in the last 48 hours before discharge Physical Exam Const: COMMON NORMALS: no acute distress ORIENTATION/CONSCIOUSNESS: Yes awake and Yes oriented to person Resp: COMMON NORMALS: normal respiratory effort, No retractions, No use of accessory muscles and clear to auscultation bilaterally AUSCULTATION: clear to auscultation bilaterally Cardio: COMMON NORMALS: regular rate, regular rhythm, S1 normal heart sound present and S2 normal heart sound present RATE: regular rate RHYTHM: regular rhythm HEART SOUNDS: S1 normal heart sound present and S2 normal heart sound present GI: COMMON NORMALS: Normal to inspection, nondistended, normoactive bowel sounds present and non-tender Extremity: COMMON NORMALS: no pedal edema Neuro: SENSORIUM/ORIENTATION: Yes oriented to person Psych: COMMON NORMALS: mental status grossly normal Urinary Catheter Management: [place]: Cath Placed During This Visit: yes Reason for Continuing Indwelling Catheter: Other Urinary Catheter Date of Insertion: 12/05/23 Urinary Catheter Time of Insertion: 18:33 Discharge Data Studies Completed and Pending Completed Studies During Hospitalization Category Date Time Status CT angio chest PE protcl [id number] Stat Cat Scan 12/04/23 15:[address] head wo con* [id number] Stat Cat Scan 12/04/23 13:46 Completed XR chest 1V portable [id number] Stat Exams 12/04/23 12:36 Completed Pending at discharge Category Date Time Status Basic Metabolic Panel AM LABS Lab 12/08/23 04:00 Ordered Basic Metabolic Panel AM LABS Lab 12/10/23 04:00 Ordered Blood Culture Stat Lab 12/04/23 13:30 Results Complete Blood Count w/Auto AM LABS Lab 12/10/23 04:00 Ordered Sputum Culture and Gram Stain Stat Lab 12/04/23 16:55 Uncollected Radiology Impressions Chest X-Ray 12/04/23 12:36 IMPRESSION: No acute cardiopulmonary disease. Head CT 12/04/23 13:46 IMPRESSION: No acute intracranial abnormality. Extensive chronic changes. Chest CTA 12/04/23 15:36 IMPRESSION: 1. No evidence of central PE or acute aortic abnormality. Hypoattenuation is noted within a left lower lobe subsegmental branch, which may be secondary to motion/atelectasis. If there is ongoing clinical concern, consider follow-up exam when patient is able to cooperate. 2. GERD. Consider follow-up outpatient GI evaluation. Laboratory Results WBC 5.61 10^3/uL (3.29-11.43) 12/09/23 04:34 RBC 2.98 10^6/uL (3.85-5.65) L 12/09/23 04:34 Hgb 10.20 g/dL (11.27-16.99) L 12/09/23 04:34 Hct 32.6 % (36-47) L 12/09/23 04:34 MCV 109.4 fl (85-98) H 12/09/23 04:34 MCH 34.2 pg (27-33) H 12/09/23 04:34 MCHC 31.3 g/dL (30-55) 12/09/23 04:34 RDW 13.5 % (12.1-15.1) 12/09/23 04:34 Plt Count 219 10^3/cmm (157-399) 12/09/23 04:34 MPV 9.4 fL (7.4-10.4) 12/09/23 04:34 Neut % (Auto) 54.7 % 12/09/23 04:34 Lymph % (Auto) 32.3 % 12/09/23 04:34 [place] % (Auto) 6.6 % 12/09/23 04:34 Eos % (Auto) 5.7 % 12/09/23 04:34 Baso % (Auto) 0.5 % 12/09/23 04:34 Neut # (Auto) 3.07 10^3/uL (1.8-7.7) 12/09/23 04:34 Lymph # (Auto) 1.8 10^3/uL (0.8-4.8) 12/09/23 04:34 [place] # (Auto) 0.4 10^3/uL (0.2-0.9) 12/09/23 04:34 Eos # (Auto) 0.3 10^3/uL (0.0-0.8) 12/09/23 04:34 Baso # (Auto) 0.0 10^3/uL (0.0-0.1) 12/09/23 04:34 Nucleated RBC % (auto) 0 % 12/09/23 04:34 Nucleated RBCs # 0.0 /100WBC 12/09/23 04:34 Specimen Type Arterial 12/04/23 12:48 Sample Site Brachial, left 12/04/23 12:48 ABG pH 7.40 (7.35-7.45) 12/04/23 12:48 ABG pCO2 42.2 mmHg (35-45) 12/04/23 12:48 ABG pO2 129.0 mmHg (80.0-100.0) H 12/04/23 12:48 ABG PO2/FiO2 Ratio 430 12/04/23 12:48 ABG HCO3 26.0 mmol/L (22-26) 12/04/23 12:48 ABG O2 Saturation 97.7 12/04/23 12:48 ABG Base Excess 1.0 mmol/L (-2.0-2.0) 12/04/23 12:48 Gustavo Test Pos 12/04/23 12:48 A-a O2 Gradient 4.0 mmHg (5-10) L 12/04/23 12:48 Hematocrit 35.4 % (37-47) L 12/04/23 12:48 Hgb O2 Saturation 93.6 % (95-100) L 12/04/23 12:48 Carboxyhemoglobin 1.1 %THgb (0.4-20.1) 12/04/23 12:48 Methemoglobin 3.1 % (0.4-1.5) H 12/04/23 12:48 Total Hemoglobin 11.6 g/dL (12-16) L 12/04/23 12:48 Sodium 140.0 mmol/L (131-143) 12/04/23 12:48 Potassium 4.2 mmol/L (3.5-5.0) 12/04/23 12:48 Glucose 120.0 mg/dL (70-115) H 12/04/23 12:48 Ionized Calcium 1.3 mmol/L (1.1-1.4) 12/04/23 12:48 O2 Delivery Device Nc 12/04/23 12:48 O2 Liters/Min 2.5 % 12/04/23 12:48 FiO2 30.0 % 12/04/23 12:48 Order Checker Packer Processer ID Yoshiro 12/04/23 12:48 Sodium 145 mmol/L (136-145) 12/09/23 04:34 Potassium 3.5 mmol/L (3.5-5.1) 12/09/23 04:34 Chloride 113 mmol/L (98-107) H 12/09/23 04:34 Carbon Dioxide 26 mmol/L (22-29) 12/09/23 04:34 Anion Gap 9.5 (5-19) 12/09/23 04:34 BUN 5 mg/dL (8-23) L 12/09/23 04:34 Creatinine 0.5 mg/dL (0.5-0.9) 12/09/23 04:34 GFR Calculation 122.7 mL/min (90-130) 12/09/23 04:34 Glucose 126 mg/dL (65-115) H 12/09/23 04:34 Calculated Osmolality 299 mOsm/kg (285-295) H 12/09/23 04:34 Lactic Acid 1.1 mmol/L (0.5-2.2) 12/04/23 12:45 Calcium 7.9 mg/dL (8.5-10.5) L 12/09/23 04:34 Magnesium 2.1 mg/dL (1.7-2.3) 12/04/23 12:45 Total Bilirubin 0.4 mg/dL (0.15-1.2) 12/04/23 13:25 AST 25 U/L (0-32) 12/04/23 13:25 ALT 24 U/L (0-33) 12/04/23 13:25 Alkaline Phosphatase 116 U/L (35-105) H 12/04/23 13:25 Creatine Kinase 74 U/L (26-192) 12/04/23 12:45 Troponin T Baseline 18 ng/L (0-10) H 12/04/23 13:25 Troponin T Hi Sens 6Hr 17.84 ng/L (0-10) H 12/04/23 20:36 Troponin T Hi Sens 6Hr Delta -0.16 ng/L (0-12) L 12/04/23 20:36 C-Reactive Protein 7.9 mg/L (0.0-4.9) H 12/04/23 20:36 NT-Pro-B Natriuret Pep 155 pg/mL (0-125) H 12/04/23 13:25 Total Protein 6.7 g/dL (6.6-8.7) 12/04/23 13:25 Albumin 3.5 g/dL (3.5-5.2) 12/04/23 13:25 Globulin 3.2 g/dL (1.3-4.6) 12/04/23 13:25 Procalcitonin 0.04 ng/mL (0-0.5) 12/04/23 20:36 TSH 0.95 uIU/mL (0.27-4.20) 12/04/23 20:36 Urine Color [place] (Yellow) A 12/04/23 12:05 Urine Appearance Clear (CLEAR) 12/04/23 12:05 Urine pH 7 (5-7) 12/04/23 12:05 Ur Specific [place] 1.010 (1.005-1.030) 12/04/23 12:05 Urine Protein Not tested (Negative) 12/04/23 12:05 Urine Glucose (UA) Norm (Normal) 12/04/23 12:05 Urine Ketones Negative (Negative) 12/04/23 12:05 Urine Blood Neg (Negative) 12/04/23 12:05 Urine Nitrate Not tested (Negative) A 12/04/23 12:05 Urine Bilirubin Not tested (Negative) 12/04/23 12:05 Urine Urobilinogen Not tested mg/dL (Negative) A 12/04/23 12:05 Ur Leukocyte Esterase Trace (Negative) H 12/04/23 12:05 Urine RBC None /hpf (0-2) 12/04/23 12:05 Urine WBC 0-4 /hpf (0-5) H 12/04/23 12:05 Ur Squamous Epith Cells None /hpf (0-5) 12/04/23 12:05 Amorphous Sediment 1+ /hpf 12/04/23 12:05 Urine Bacteria Trace /hpf (NONE) 12/04/23 12:05 Urine Mucus None /hpf 12/04/23 12:05 Ur Oval Fat Bodies 1+ /hpf 12/04/23 12:05 Adenovirus (PCR) Not detected (NOT DETECT) 12/04/23 20:37 C. pneumoniae DNA (PCR) Not detected (NOT DETECT) 12/04/23 20:37 Coronavirus 229E (PCR) Not detected (NOT DETECT) 12/04/23 20:37 Human Metapneumovir PCR Not detected (NOT DETECT) 12/04/23 20:37 Influenza A (H1) PCR Not detected (NOT DETECT) 12/04/23 20:37 Influ A (H1/09) PCR Not detected (NOT DETECT) 12/04/23 20:37 Influenza A (H3) PCR Not detected (NOT DETECT) 12/04/23 20:37 Influenza Type A (PCR) Not detected (NOT DETECT) 12/04/23 20:37 Influenza Type B (PCR) Not detected (NOT DETECT) 12/04/23 20:37 M. pneumoniae (PCR) Not detected (NOT DETECT) 12/04/23 20:37 Parainfluenza 1 (PCR) Not detected (NOT DETECT) 12/04/23 20:37 Parainfluenza 2 (PCR) Not detected (NOT DETECT) 12/04/23 20:37 Parainfluenza 3 (PCR) Not detected (NOT DETECT) 12/04/23 20:37 Parainfluenza 4 (PCR) Not detected (NOT DETECT) 12/04/23 20:37 RSV Type A (PCR) Not detected (NOT DETECT) 12/04/23 20:37 RSV Type B (PCR) Not detected (NOT DETECT) 12/04/23 20:37 Entero/Rhino (PCR) Not detected (NOT DETECT) 12/04/23 20:37 SARS-CoV-2 (PCR) Not detected (NOT DETECT) 12/04/23 20:37 Vitals Last Vital Signs Temp 97.6 F 12/09/23 07:34 Pulse 70 12/09/23 08:15 Resp 20 H 12/09/23 08:15 BP 118/75 12/09/23 07:34 Pulse Ox 98 12/09/23 08:15 O2 Del Method Nasal Cannula 12/09/23 08:15 O2 Flow Rate 1 12/09/23 08:15 Discharge Plan Discharge Patient Disposition: Home Condition: Stable Prescriptions: New amoxicillin-pot clavulanate 875-125 mg tablet 1 tab PO BID 5 Days Qty: 10 0RF Continued folic acid 1 mg tablet 1 mg PO DAILY@08 montelukast [Singulair] 10 mg tablet 10 mg PO DAILY@08 multivitamin Tablet 1 tab PO DAILY@08 polyethylene glycol 3350 [Miralax] 17 gram/dose powder 17 gm PO DAILY@08 Rx Instructions: with h2o or juice fluticasone propionate [Flonase Allergy Relief] 50 mcg/actuation spray,suspension 1 spray INTRANASAL DAILY@08 Rx Instructions: administer into each nostril pantoprazole [Protonix] 40 mg tablet,delayed release (DR/EC) 40 mg PO DAILY@08 zonisamide [Zonegran] 100 mg capsule 100 mg PO BID@08,20 phenazopyridine [Azo Urinary Pain Relief] 95 mg tablet 190 mg PO TID PRN (Reason: Bladder Spasms) acetaminophen [Tylenol] 325 mg capsule 650 mg PO Q6H PRN (Reason: Pain or elevated temp) simethicone [Gas-X Extra Strength] 125 mg capsule 125 mg PO Q8H PRN (Reason: Stomach Upset) ondansetron HCl 4 mg Tablet 4 mg PO Q4H PRN (Reason: Nausea And Vomiting) nitrofurantoin macrocrystal [Macrodantin] 100 mg Capsule 100 mg PO BEDTIME@20 Rx Instructions: must administer with a meal/food promethazine-DM 6.25-15 mg/5 mL syrup 5 ml PO Q4H PRN (Reason: Evening Cough) sucralfate 100 mg/mL suspension 10 ml PO BID prednisone 5 mg tablet 5 mg PO QAM Anti-Diarrheal (loperamide) 2 mg tablet 2 mg PO QID PRN (Reason: Diarrhea) cyanocobalamin (vitamin B-12) 1,000 mcg/mL solution 1,000 mcg IM Q30D buspirone 10 mg tablet 10 mg PO TID clonazepam 0.25 mg tablet,disintegrating 0.25 mg PO BID budesonide-formoterol 80-4.5 mcg/actuation HFA aerosol inhaler 2 puff INHALATION BID Vimpat 150 mg tablet 150 mg PO BID fluoxetine 20 mg Tablet 20 mg PO DAILY@12 Rx Instructions: with 10mg caps vitamin B complex Tablet 1 tab PO DAILY@12 Acidophilus Tablet,Chewable 1 tab PO DAILY@08 triamcinolone acetonide 0.1 % Cream 1 applic TOPICAL BID PRN (Reason: Rash) albuterol sulfate 90 mcg/actuation Hfa Aerosol Inhaler 2 puff INHALATION QID PRN (Reason: Shortness Of Breath) clotrimazole 1 % Cream See Rx Instructions .ROUTE .COMPLEX Rx Instructions: Apply to rash twice daily until clear then use as needed. Nutritional Drink Liquid 1 ea PO TID@,, diclofenac sodium 1 % Gel 4 g TOPICAL QID PRN (Reason: Pain) Rx Instructions: apply to single knee, ankle, foot; for foot includes sole/toes/top of foot famotidine 20 mg tablet 20 mg PO BID@08,20 (DME) Breathe Right Strip TOPICAL Rx Instructions: prn levetiracetam 500 mg tablet 1,000 mg PO BID 30 Days Qty: 60 0RF Cough Drops See Rx Instructions .ROUTE .COMPLEX Rx Instructions: may keep at bedside prn Systane (propylene glycol) 0.4-0.3 % Drops 1 drp ophthalmic (eye) TID Rx Instructions: both eyes fluoxetine 10 mg capsule 10 mg PO DAILY@12 Rx Instructions: with 20mg cap dextromethorphan-guaifenesin [Tussin DM Cough and Chest] 5-100 mg/5 mL liquid 10 ml PO BID PRN (Reason: Cough) phenytoin [Dilantin Infatabs] 50 mg tablet,chewable 50 mg PO TID@08,14,20 Discontinued scopolamine base [Transderm-Scop] 1 mg over 3 days Patch 3 Day 1 patch TRANSDERMAL Q3D Rx Instructions: behind ear Discharge Orders: Discharge Order (Routine); Ordered 12/09/23 Ordered By: Frederic Joseph Referrals: Trivedi,Marilyn, DEBURRING MACHINE OPERATOR [Primary Care Provider] - Discharge Diet: Cardiac Discharge Activity: Resume usual activity Patient Instructions: Opioid Safety Activity Restrictions/Additional Instructions: - Dysphagia level 5 diet, minced and moist, with moderately thick liquids -Aspiration precautions -Monitor for recurrent aspiration events, aspiration pneumonia if so bring her back to the hospital -Monitor for breakthrough seizures -donot give tramadol with history of seizures Discharge Attestations Time Spent in Discharge Care*: greater than 30 min Quality Metrics Clinical Quality Measures [ No reported AMI, CVA or VTE this stay] Coding Level of Care Code 89591 Total time (in minutes) for Discharge: 45 Diagnoses Acute encephalopathy G93.40 Hypoxia R09.02 Aspiration pneumonia J69.0 Breakthrough seizure G40.919
[2023-12-09] MEDS: fluoxetine 10 mg Capsule PO (11:41)
[2023-12-09] MEDS: fluoxetine 20 mg Capsule PO (11:44)
[2023-12-09 21:18] LABS: Blood Urea Nitrogen 6 mg/dL (8-23); Calcium 7.7 mg/dL (8.5-10.5); Carbon Dioxide 25 mmol/L (22-29); Chloride 109 mmol/L (98-107); Creatinine Clr Calc Pharmacy 51.2911; Glomerular Filtration Rate 122.7 mL/min (90-130); Glucose 82 mg/dL (65-115); Osmolality Calculated 289 mOsm/kg (285-295); Sodium 141 mmol/L (136-145)
[2023-12-09 21:47] LABS: Anion Gap 11.2 (5-19); Potassium 4.2 mmol/L (3.5-5.1)
== END 2023-12-09 17:45 | disposition home or self-care (01) | DRG 70 ==
LOC: ER 16:07 → MEDSURG 16:46
PROVIDERS: Admitting Provider Family Medicine; Emergency Provider Family Medicine; PCP Nurse Practitioner Family; Visit Provider Family Medicine
DX: G93.40 Encephalopathy, unspecified (principal); J69.0 Pneumonitis due to inhalation of food and vomit; G40.909 Epilepsy, unspecified, not intractable, without status epilepticus; Z87.820 Personal history of traumatic brain injury; F79 Unspecified intellectual disabilities; Z99.3 Dependence on wheelchair; K44.9 Diaphragmatic hernia without obstruction or gangrene
CPT/HCPCS: 36415; 36600; 51702; 51798; 70450; 71045; 71275; 80048; 80051; 80053; 81001; 82330; 82550; 82805; 83605; 83735; 83880; 84145; 84443; 84484; 85025; 86140; 87040; 87486; 87581; 87633; 92523; 92526; 92610; 93005; 96372; 99285; J1650; J1953; J2543; J7030; J7512; Q9967

== ENCOUNTER 2024-03-04 09:08 | Emergency (ER) | payer MEDICARE, MEDICAID, SELFPAY ==
[2024-03-04] VITALS (7 sets, daily range): BP systolic 96–130; BP diastolic 62–79; PULSE 83–93; RESP 14–26; TEMP 36.9; O2SAT 92–96; BMI 23.4
--- NOTE | 2024-03-04 09:16 | XRR_ITS ---
PROCEDURE INFORMATION: Exam: XR Chest Exam date and time: 03/04/2024 9:19 AM Age: 68 years old Clinical indication: Cough and shortness of breath; Prior surgery; Surgery date: 6+ months; Surgery type: Pacer stimulator; Additional info: SOB TECHNIQUE: Imaging protocol: Radiologic exam of the chest. Views: 1 view. COMPARISON: CT angio chest PE protcl [id number] 12/04/2023 6:35 PM FINDINGS: Tubes, catheters and devices: Unchanged power pack projecting over the left hemithorax with leads extending into the left neck. This obscures a small portion of the left lung. Lungs: Otherwise, unremarkable. Pleural spaces: Unremarkable. No pleural effusion. No pneumothorax. Heart/Mediastinum: Unchanged hiatal hernia. Bones/joints: Unchanged scoliosis. A few thoracic vertebral body compression deformities are probably unchanged. Unchanged surgical hardware attached to the right humerus is partially in the field of view. XR/XR chest 1V portable [id number] IMPRESSION: 1. A few thoracic vertebral body compression deformities are probably unchanged. Their exact age is uncertain. 2. Otherwise, no acute findings.
--- NOTE | 2024-03-04 09:23 | ED_ITS ---
HPI - SOB/Dyspnea 2 General: Chief Complaint: Shortness of Breath/Dyspnea Stated Complaint: Cough, Low O2 Time Seen by Provider: 03/04/24 09:13 History of Present Illness: HPI Narrative: 68-year-old female presents with some in creasing shortness of breath and some mild increased oxygen need over the last 4 days. Patient had a little bit of a cough. Subjective fever. Patient has O2 as needed at the care center and has had a little bit of increased need over the last few days. Related Data Home Medications Medication Instructions Recorded Confirmed acetaminophen 325 mg capsule 650 mg PO Q6H PRN Pain or elevated 11/25/19 03/04/24 (Tylenol) temp fluticasone propionate 50 1 spray intranasal DAILY@11/25/19 03/04/24 mcg/actuation nasal spray,suspension (Flonase Allergy Relief) folic acid 1 mg tablet 1 mg PO DAILY@11/25/19 03/04/24 montelukast 10 mg tablet 10 mg PO DAILY@11/25/19 03/04/24 (Singulair) multivitamin 1 tab PO DAILY@11/25/19 03/04/24 pantoprazole 40 mg tablet,delayed 40 mg PO DAILY@11/25/19 03/04/24 release (Protonix) phenazopyridine 95 mg tablet (Azo 190 mg PO TID PRN Bladder Spasms 11/25/19 03/04/24 Urinary Pain Relief) polyethylene glycol 3350 17 17 gm PO DAILY@11/25/19 03/04/24 gram/dose oral powder (Miralax) simethicone 125 mg capsule (Gas-X 125 mg PO Q8H PRN Stomach Upset 11/25/19 03/04/24 Extra Strength) zonisamide 100 mg capsule 100 mg PO BID@11/25/19 03/04/24 (Zonegran) Lactobacillus acidophilus 1 tab PO DAILY@10/15/21 03/04/24 (Acidophilus chewable tablet) albuterol sulfate 90 mcg/actuation 2 puff inhalation QID PRN 10/15/21 03/04/24 aerosol inhaler Shortness Of Breath clotrimazole 1 % topical cream See Rx Instructions .Route .COMPLEX 10/15/21 03/04/24 diclofenac sodium 1 % topical gel 4 g topical QID PRN Pain 10/15/21 03/04/24 fluoxetine 20 mg tablet 20 mg PO DAILY@12 10/15/21 03/04/24 food supplemt, lactose-reduced 1 ea PO TID@,,10/15/21 03/04/24 (Nutritional Drink oral liquid) nitrofurantoin macrocrystal 100 mg 100 mg PO BEDTIME@20 03/09/22 03/04/24 capsule (Macrodantin) ondansetron HCl 4 mg tablet 4 mg PO Q4H PRN Nausea And Vomiting 03/09/22 03/04/24 famotidine 20 mg tablet 20 mg PO BID@,06/01/22 03/04/24 nasal dilators (Breathe Right 06/01/22 03/04/24 strips) Cough Drops See Rx Instructions .Route .COMPLEX 06/07/22 03/04/24 dextromethorphan-guaifenesin 5 10 ml PO BID PRN Cough 06/07/22 03/04/24 mg-100 mg/5 mL oral liquid (Tussin DM Cough and Chest) fluoxetine 10 mg capsule 10 mg PO DAILY@12 06/07/22 03/04/24 peg 400-propylene glycol 0.4 %-0.3 1 drp ophthalmic (eye) TID 06/07/22 03/04/24 % eye drops (Systane (propylene glycol)) phenytoin 50 mg chewable tablet 50 mg PO TID@,,06/07/22 03/04/24 (Dilantin Infatabs) budesonide-formoterol HFA 80 2 puff inhalation BID 12/04/23 03/04/24 mcg-4.5 mcg/actuation aerosol inhaler buspirone 10 mg tablet 10 mg PO TID 12/04/23 03/04/24 clonazepam 0.25 mg disintegrating 0.25 mg PO BID 12/04/23 03/04/24 tablet lacosamide 150 mg tablet (Vimpat) 150 mg PO BID 12/04/23 03/04/24 loperamide 2 mg tablet 2 mg PO QID PRN Diarrhea 12/04/23 03/04/24 (Anti-Diarrheal (loperamide)) prednisone 5 mg tablet 5 mg PO QAM 12/04/23 03/04/24 sucralfate 100 mg/mL oral 10 ml PO BID 12/04/23 03/04/24 suspension tramadol 50 mg tablet 50 mg PO Q4H pain 03/04/24 03/04/24 Previous Rx's Medication Instructions Recorded levetiracetam 500 mg tablet 1,000 mg (2 x 500 mg) PO BID 30 06/06/22 days #60 tabs albuterol sulfate 5 mg/mL(0.5 %) 5 mg inhalation TID PRN shortness 03/04/24 solution for nebulization of breath or wheezing #600 mL nebulizer accessories ([place] #1 ea 03/04/24 Choice Nebulizer Kit-Adult) Allergies Allergy/AdvReac Type Severity Reaction Status Date / Time aspirin Allergy Unknown Verified 03/04/24 09:18 Influenza Virus Vaccines Allergy Unknown Verified 03/04/24 09:18 levofloxacin [From Levaquin] Allergy ALGY-Hives Verified 03/04/24 09:18 vancomycin Allergy ALGY-Hives Verified 03/04/24 09:18 PFSH ED 2 PFSH: Medical History Acquired intellectual disability Dehydration Altered mental status Rheumatoid arthritis Seizures Brain injury Urinary retention Encephalopathy chronic Generalized epilepsy Epilepsy Surgical History History of craniotomy Family History Other No pertinent family history Social History Smoking and tobacco/nicotine status: never used tobacco/nicotine Course 2 Vital Signs: Vital signs: Vital Signs Temperature 98.4 F 03/04/24 09:11 Pulse Rate 86 03/04/24 11:38 Respiratory Rate 26 H 03/04/24 11:38 Blood Pressure 116/62 03/04/24 11:38 Pulse Oximetry 92 03/04/24 11:38 Oxygen Delivery Me thod Nasal Cannula 03/04/24 11:38 Oxygen Flow Rate 2 03/04/24 11:38 MDM - SOB/Dyspnea Medical Decision Making Patient's labs were ordered reviewed and she is positive for rhinovirus. Patient's x-ray shows no acute pneumonia. Patient is maintaining her oxygen on 2 L which she is prescribed as needed. I will prescribe her nebulizer and albuterol inhaler that they can use as needed. Patient does not have indications for antibiotics as it is rhinovirus. She is stable and discharged home to the care center. Lab Data 03/04/24 09:27 10 09: Labs/Radiology: Radiology Impressions Chest X-Ray 03/04/24 09:16 IMPRESSION: 1. A few thoracic vertebral body compression deformities are probably unchanged. Their exact age is uncertain. 2. Otherwise, no acute findings. Laboratory Results WBC 6.23 10^3/uL (3.29-11.43) 03/04/24 09: RBC 3.50 10^6/uL (3.85-5.65) L 03/04/24: Hgb 12.30 g/dL (11.27-16.99) 03/04/24: Hct 39.5 % (36-47) 03/04/24: MCV 112.9 fl (85-98) H 03/04/24: MCH 35.1 pg (27-33) H 03/04/24: MCHC 31.1 g/dL (30-55) 03/04/24: RDW 14.0 % (12.1-15.1) 03/04/24: Plt Count 188 10^3/cmm (157-399) 03/04/24: MPV 8.7 fL (7.4-10.4) 03/04/24: Neut % (Auto) 63.3 % 03/04/24: Lymph % (Auto) 23.4 % 03/04/24: [place] % (Auto) 8.5 % 03/04/24: Eos % (Auto) 4.2 % 03/04/24: Baso % (Auto) 0.3 % 03/04/24 Neut # (Auto) 3.94 10^3/uL (1.8-7.7) 03/04/24: Lymph # (Auto) 1.5 10^3/uL (0.8-4.8) 03/04/24: [place] # (Auto) 0.5 10^3/uL (0.2-0.9) 03/04/24 09:27 Eos # (Auto) 0.3 10^3/uL (0.0-0.8) 03/04/24 09: Baso # (Auto) 0.0 10^3/uL (0.0-0.1) 03/04/24 09:27 Nucleated RBC % (auto) 0 % 03/04/24: Nucleated RBCs # 0.0 /100WBC 03/04/24 09:27 Sodium 134 mmol/L (136-145) L 03/04/24 09:27 Potassium 4.0 mmol/L (3.5-5.1) 03/04/24 09: Chloride 103 mmol/L (98-107) 03/04/24 09: Carbon Dioxide 27 mmol/L (22-29) 03/04/24 09: Anion Gap 8.0 (5-19) 03/04/24 09: BUN 14 mg/dL (8-23) 03/04/24 09:27 Creatinine 0.6 mg/dL (0.5-0.9) 03/04/24 09:27 GFR Calculation 99.1 mL/min (90-130) 03/04/24 09: Glucose 119 mg/dL (65-115) H 03/04/24 09: Calculated Osmolality 280 mOsm/kg (285-295) L 03/04/24 09:27 Calcium 8.1 mg/dL (8.5-10.5) L 03/04/24 09:27 Adenovirus (PCR) Not detected (NOT DETECT) 03/04/24 09:47 C. pneumoniae DNA (PCR) Not detected (NOT DETECT) 03/04/24 09:47 Coronavirus 229E (PCR) Not detected (NOT DETECT) 03/04/24 09:47 Human Metapneumovir PCR Not detected (NOT DETECT) 03/04/24 09:47 Influenza A (H1) PCR Not detected (NOT DETECT) 03/04/24 09:47 Influ A (H1/09) PCR Not detected (NOT DETECT) 03/04/24 09:47 Influenza A (H3) PCR Not detected (NOT DETECT) 03/04/24 09:47 Influenza Type A (PCR) Not detected (NOT DETECT) 03/04/24 09:47 Influenza Type B (PCR) Not detected (NOT DETECT) 03/04/24 09:47 M. pneumoniae (PCR) Not detected (NOT DETECT) 03/04/24 09:47 Parainfluenza 1 (PCR) Not detected (NOT DETECT) 03/04/24 09:47 Parainfluenza 2 (PCR) Not detected (NOT DETECT) 03/04/24 09:47 Parainfluenza 3 (PCR) Not detected (NOT DETECT) 03/04/24 09:47 Parainfluenza 4 (PCR) Not detected (NOT DETECT) 03/04/24 09:47 RSV Type A (PCR) Not detected (NOT DETECT) 03/04/24 09:47 RSV Type B (PCR) Not detected (NOT DETECT) 03/04/24 09:47 Entero/Rhino (PCR) Detected (NOT DETECT) A 03/04/24 09:47 SARS-CoV-2 (PCR) Not detected (NOT DETECT) 03/04/24 09:47 All radiology interpretation(s) finalized by discharge Discharge Plan Discharge Patient Disposition: Home Clinical Impression: Acute bronchitis due to Rhinovirus Condition: Stable Prescriptions: New (DME) [place] Choice Neb Kit-Adult Misc See Rx Instructions .ROUTE Qty: 1 0RF Rx Instructions: As directed albuterol sulfate 5 mg/mL solution for nebulization 5 mg inhalation TID PRN (Reason: shortness of breath or wheezing) Qty: 600 0RF No Action folic acid 1 mg tablet 1 mg PO DAILY@08 montelukast [Singulair] 10 mg tablet 10 mg PO DAILY@08 multivitamin Tablet 1 tab PO DAILY@08 polyethylene glycol 3350 [Miralax] 17 gram/dose powder 17 gm PO DAILY@08 Rx Instructions: with h2o or juice fluticasone propionate [Flonase Allergy Relief] 50 mcg/actuation spray,suspension 1 spray INTRANASAL DAILY@08 Rx Instructions: administer into each nostril pantoprazole [Protonix] 40 mg tablet,delayed release (DR/EC) 40 mg PO DAILY@08 zonisamide [Zonegran] 100 mg capsule 100 mg PO BID@08,20 phenazopyridine [Azo Urinary Pain Relief] 95 mg tablet 190 mg PO TID PRN (Reason: Bladder Spasms) acetaminophen [Tylenol] 325 mg capsule 650 mg PO Q6H PRN (Reason: Pain or elevated temp) simethicone [Gas-X Extra Strength] 125 mg capsule 125 mg PO Q8H PRN (Reason: Stomach Upset) ondansetron HCl 4 mg Tablet 4 mg PO Q4H PRN (Reason: Nausea And Vomiting) nitrofurantoin macrocrystal [Macrodantin] 100 mg Capsule 100 mg PO BEDTIME@20 Rx Instructions: must administer with a meal/food sucralfate 100 mg/mL suspension 10 ml PO BID prednisone 5 mg tablet 5 mg PO QAM loperamide [Anti-Diarrheal (loperamide)] 2 mg tablet 2 mg PO QID PRN (Reason: Diarrhea) buspirone 10 mg tablet 10 mg PO TID clonazepam 0.25 mg tablet,disintegrating 0.25 mg PO BID budesonide-formoterol 80-4.5 mcg/actuation HFA aerosol inhaler 2 puff INHALATION BID lacosamide [Vimpat] 150 mg tablet 150 mg PO BID tramadol 50 mg Tablet 50 mg PO Q4H fluoxetine 20 mg Tablet 20 mg PO DAILY@12 Rx Instructions: with 10mg caps Acidophilus Tablet,Chewable 1 tab PO DAILY@08 albuterol sulfate 90 mcg/actuation Hfa Aerosol Inhaler 2 puff INHALATION QID PRN (Reason: Shortness Of Breath) clotrimazole 1 % Cream See Rx Instructions .ROUTE .COMPLEX Rx Instructions: Apply to rash twice daily until clear then use as needed. Nutritional Drink Liquid 1 ea PO TID@,,19 diclofenac sodium 1 % Gel 4 g TOPICAL QID PRN (Reason: Pain) Rx Instructions: apply to single knee, ankle, foot; for foot includes sole/toes/top of foot famotidine 20 mg tablet 20 mg PO BID@08,20 (DME) Breathe Right Strip TOPICAL Rx Instructions: prn levetiracetam 500 mg tablet 1,000 mg PO BID 30 Days Qty: 60 0RF Cough Drops See Rx Instructions .ROUTE .COMPLEX Rx Instructions: may keep at bedside prn Systane (propylene glycol) 0.4-0.3 % Drops 1 drp ophthalmic (eye) TID Rx Instructions: both eyes fluoxetine 10 mg capsule 10 mg PO DAILY@12 Rx Instructions: with 20mg cap dextromethorphan-guaifenesin [Tussin DM Cough and Chest] 5-100 mg/5 mL liquid 10 ml PO BID PRN (Reason: Cough) phenytoin [Dilantin Infatabs] 50 mg tablet,chewable 50 mg PO TID@08,14,20 Discharge Orders: Discharge ED (Routine); Ordered 03/04/24 Ordered By: Jus Horn Referrals: Trivedi,Marilyn, PENCIL INSPECTOR [Primary Care Provider] - Discharge Diet: Usual diet Discharge Activity: Increase activity as tolerated Patient Instructions: Acute Bronchitis (ED), Viral Syndrome (ED), Opioid Safety, Pain Management Activity Restrictions/Additional Instructions: Albuterol nebulizer/inhaler every 8 hours as needed. Tylenol ibuprofen as needed for fever, chills. Follow-up with your primary care provider in a couple days for recheck. Use your oxygen as needed for comfort. Coding Level of Care Code ED Mold Burner for Ady Vidal
[2024-03-04 09:42] LABS: Eosinophils # 0.3 10^3/uL (0.0-0.8); Nucleated Red Blood Cells % 0 %
[2024-03-04 10:01] LABS: Blood Urea Nitrogen 14 mg/dL (8-23); Calcium 8.1 mg/dL (8.5-10.5); Carbon Dioxide 27 mmol/L (22-29); Chloride 103 mmol/L (98-107); Creatinine Clr Calc Pharmacy 51.4153; Glomerular Filtration Rate 99.1 mL/min (90-130); Glucose 119 mg/dL (65-115); Osmolality Calculated 280 mOsm/kg (285-295); Sodium 134 mmol/L (136-145)
--- NOTE | 2024-03-04 10:24 | PC.PHAR ---
patient is apart of [facility]
[2024-03-04 11:55] LABS: Adenovirus Not Detected (NOT DETECT); Chlamydia Pneumoniae Not Detected (NOT DETECT); Coronavirus 229E,HKU1,NL63,OC4 Not Detected (NOT DETECT); Human Metapneumovirus Not Detected (NOT DETECT); Human Rhinovirus/Enterovirus Detected (NOT DETECT); Influenza A Not Detected (NOT DETECT); Influenza A H1 Not Detected (NOT DETECT); Influenza A H1-2009 Not Detected (NOT DETECT); Influenza A H3 Not Detected (NOT DETECT); Influenza B Not Detected (NOT DETECT); Mycoplasma Pneumoniae Not Detected (NOT DETECT); Parainfluenza Virus Type 1 Not Detected (NOT DETECT); Parainfluenza Virus Type 2 Not Detected (NOT DETECT); Parainfluenza Virus Type 3 Not Detected (NOT DETECT); Parainfluenza Virus Type 4 Not Detected (NOT DETECT); Respiratory Syncytial Virus A Not Detected (NOT DETECT); Respiratory Syncytial Virus B Not Detected (NOT DETECT); SARS-COV-2 Not Detected (NOT DETECT)
[2024-03-04 16:31] LABS: Hematocrit 34.1 % (36-47); Mean Corpuscular Hemoglobin 34.8 pg (27-33); Red Blood Count 2.99 10^6/uL (3.85-5.65); White Blood Count 7.29 10^3/uL (3.29-11.43)
[2024-03-04 16:32] LABS: Eosinophils % 4.4 %; Lymphocytes % 24.4 %; Mean Corpuscular HGB Conc 30.5 g/dL (30-55); Mean Platelet Volume 9.7 fL (7.4-10.4); Monocytes % 9.3 %; Neutrophils % 61.1 %; Platelet Count 302 10^3/cmm (157-399); Red Cell Distribution Width 13.9 % (12.1-15.1)
[2024-03-04 16:33] LABS: Basophils % 0.4 %; Lymphocytes # 1.8 10^3/uL (0.8-4.8); Monocytes # 0.7 10^3/uL (0.2-0.9); Neutrophils # 4.45 10^3/uL (1.8-7.7)
== END 2024-03-04 14:20 | disposition home or self-care (01) ==
PROVIDERS: Emergency Provider Student in an Organized Health Care Education/Training Program; PCP Nurse Practitioner Family
DX: J20.6 Acute bronchitis due to rhinovirus (principal); Z11.52 Encounter for screening for COVID-19
CPT/HCPCS: 36415; 71045; 80048; 85025; 87486; 87581; 87633; 99284

== ENCOUNTER 2024-03-30 08:02 | Emergency (ER) | payer MEDICARE, MEDICAID, SELFPAY ==
[2024-03-30 08:03] VITALS: BP 134/83; PULSE 90; RESP 16; TEMP 36.8; O2SAT 95
--- NOTE | 2024-03-30 08:13 | ECG_ITS ---
[facility] Test Date: 2024-03-30 Pat Name: Dasia Brian Department: Room: Gender: Female Prepress Operator: : [id number] Requested By: Gil Pettit Order Number: [id number] Cristian MD: Florida Rivera M.D. Measurements Intervals [place] Rate: 80 P: 18 SC: 181 QRS: 47 QRSD: 71 T: 46 QT: 389 QTc: 451 Interpretive Statements SINUS RHYTHM Compared to ECG 12/05/2023 00:06:23 No significant changes Electronically Signed On 04-02-2024 21:19:49 HEALTH INSURANCE ASSESSOR by Florida Rivera M.D. [email or web address]
--- NOTE | 2024-03-30 08:13 | XR_ITS ---
WS: [id number] XR chest 1V portable [id number] REASON FOR EXAM: dyspnea/cough FINDINGS: The chest is unchanged compared to the previous examination of 03/04/2024. Moderate tortuosity of the thoracic aorta with mild cardiomegaly. Battery pack over the left chest wi th leads coiled at the base of the left neck. Lungs are hypoexpanded with mild elevation of the right hemidiaphragm. No acute pulmonary parenchymal or pleural abnormality is identified. Dextroscoliosis and mild compression deformities of the thoracic spine. XR/XR chest 1V portable [id number] IMPRESSION: Stable chest with no acute abnormality.
[2024-03-30 08:30] VITALS: BP 142/89; PULSE 90; O2SAT 97
--- NOTE | 2024-03-30 08:30 | ED_ITS ---
HPI - Seizure 2 General: Chief Complaint: Seizure Stated Complaint: seizure Time Seen by Provider: 03/30/24 08:02 History of Present Illness: HPI Narrative: 68-year-old female presents to the [facility] ency room in a postictal state. She lives at a care home had a witnessed seizure lasting greater than 5 minutes. She also has a history of previous traumatic brain injury. When initially seen the patient she is significantly postictal is difficult to understand. She is on zonisamide and Keppra there were no caregivers present when initially seen her to ask about changes in medications or missed dosages. She does live in a care home. Caregivers arrive later they have not missed any doses with the exception of this morning doses no recent medication changes. Related Data Home Medications Medication Instructions Recorded Confirmed acetaminophen 325 mg capsule 650 mg PO Q6H PRN Pain or elevated 11/25/19 03/30/24 (Tylenol) temp fluticasone propionate 50 1 spray intranasal DAILY@11/25/19 03/30/24 mcg/actuation nasal spray,suspension (Flonase Allergy Relief) folic acid 1 mg tablet 1 mg PO DAILY@11/25/19 03/30/24 montelukast 10 mg tablet 10 mg PO DAILY@11/25/19 03/30/24 (Singulair) multivitamin 1 tab PO DAILY@11/25/19 03/30/24 pantoprazole 40 mg tablet,delayed 40 mg PO DAILY@11/25/19 03/30/24 release (Protonix) phenazopyridine 95 mg tablet (Azo 190 mg PO TID PRN Bladder Spasms 11/25/19 03/30/24 Urinary Pain Relief) polyethylene glycol 3350 17 17 gm PO DAILY@11/25/19 03/30/24 gram/dose oral powder (Miralax) simethicone 125 mg capsule (Gas-X 125 mg PO Q8H PRN Stomach Upset 11/25/19 03/30/24 Extra Strength) zonisamide 100 mg capsule 100 mg PO BID@11/25/19 03/30/24 (Zonegran) Lactobacillus acidophilus 1 tab PO DAILY@10/15/21 03/30/24 (Acidophilus chewable tablet) albuterol sulfate 90 mcg/actuation 2 puff inhalation QID PRN 10/15/21 03/30/24 aerosol inhaler Shortness Of Breath clotrimazole 1 % topical cream See Rx Instructions .Route .COMPLEX 10/15/21 03/30/24 diclofenac sodium 1 % topical gel 4 g topical QID PRN Pain 10/15/21 03/30/24 fluoxetine 20 mg tablet 20 mg PO DAILY@12 10/15/21 03/30/24 food supplemt, lactose-reduced 1 ea PO TID@09,,10/15/21 03/30/24 (Nutritional Drink oral liquid) ondansetron HCl 4 mg tablet 4 mg PO Q4H PRN Nausea And Vomiting 03/09/22 03/30/24 famotidine 20 mg tablet 20 mg PO BID@08,06/01/22 03/30/24 nasal dilators (Breathe Right 06/01/22 03/30/24 strips) Cough Drops See Rx Instructions .Route .COMPLEX 06/07/22 03/30/24 dextromethorphan-guaifenesin 5 10 ml PO BID PRN Cough 06/07/22 03/30/24 mg-100 mg/5 mL oral liquid (Mimi DM Cough and Chest) fluoxetine 10 mg capsule 10 mg PO DAILY@12 06/07/22 03/30/24 peg 400-propylene glycol 0.4 %-0.3 1 drp ophthalmic (eye) TID 06/07/22 03/30/24 % eye drops (Systane (propylene glycol)) phenytoin 50 mg chewable tablet 50 mg PO TID@08,14,06/07/22 03/30/24 (Dilantin Infatabs) budesonide-formoterol HFA 80 2 puff inhalation BID 12/04/23 03/30/24 mcg-4.5 mcg/actuation aerosol inhaler buspirone 10 mg tablet 10 mg PO TID 12/04/23 03/30/24 clonazepam 0.25 mg disintegrating 0.25 mg PO BID 12/04/23 03/30/24 tablet lacosamide 150 mg tablet (Vimpat) 150 mg PO BID 12/04/23 03/30/24 loperamide 2 mg tablet 2 mg PO QID PRN Diarrhea 12/04/23 03/30/24 (Anti-Diarrheal (loperamide)) prednisone 5 mg tablet 5 mg PO QAM 12/04/23 03/30/24 sucralfate 100 mg/mL oral 10 ml PO BID 12/04/23 03/30/24 suspension tramadol 50 mg tablet 50 mg PO Q4H pain 03/04/24 03/30/24 Previous Rx's Medication Instructions Recorded levetiracetam 500 mg tablet 1,000 mg (2 x 500 mg) PO BID 30 06/06/22 days #60 tabs albuterol sulfate 5 mg/mL(0.5 %) 5 mg inhalation TID PRN shortness 03/04/24 solution for nebulization of breath or wheezing #600 mL nebulizer accessories ([place] #1 ea 03/04/24 Choice Nebulizer Kit-Adult) cefdinir 300 mg capsule 300 mg PO BID 5 days #10 caps 03/30/24 Allergies Allergy/AdvReac Type Severity Reaction Status Date / Time aspirin Allergy Unknown Verified 03/04/24 09:18 Influenza Virus Vaccines Allergy Unknown Verified 03/04/24 09:18 levofloxacin [From Levaquin] Allergy ALGY-Hives Verified 03/04/24 09:18 vancomycin Allergy ALGY-Hives Verified 03/04/24 09:18 Review of Systems 2 General: Reports: ROS unobtainable due to mental status PFSH ED 2 PFSH: Medical History Acquired intellectual disability Dehydration Altered mental status Rheumatoid arthritis Seizures Brain injury Urinary retention Encephalopathy chronic Generalized epilepsy Epilepsy Surgical History History of craniotomy Family History Other No pertinent family history Social History Smoking and tobacco/nicotine status: never used tobacco/nicotine Physical Exam 2 Const: GENERAL APPEARANCE: cooperative ORIENTATION/CONSCIOUSNESS: Yes awake HENMT: COMMON NORMALS: normocephalic, atraumatic and hearing grossly normal bilaterally HEAD & SCALP: normocephalic and atraumatic Resp: COMMON NORMALS: normal respiratory effort, No retractions, No use of accessory muscles and clear to auscultation bilaterally AUSCULTATION: clear to auscultation bilaterally Cardio: COMMON NORMALS: regular rate, regular rhythm and No murmurs present (Cardio) RATE: regular rate RHYTHM: regular rhythm GI: COMMON NORMALS: Soft to palpation and No hepatosplenomegaly present A USCULTATION: Yes normoactive bowel sounds PALPATION: Yes Soft to palpation, No Tenderness to palpation present (GI), No Guarding due to palpation present (GI) and Yes No hepatosplenomegaly present Extremity: COMMON NORMALS: normal to inspection, capillary refill normal, no clubbing, cyanosis or edema, no calf tenderness and no pedal edema Skin: COMMON NORMALS: no rashes or lesions noted GENERAL SKIN EXAM: no rashes or lesions noted Course 2 Vital Signs: Vital signs: Vital Signs Temperature 98.3 F 03/30/24 08:03 Pulse Rate 77 03/30/24 12:03 Respiratory Rate 17 03/30/24 12:03 Blood Pressure 142/78 03/30/24 12:03 Pulse Oximetry 94 03/30/24 12:03 Oxygen Delivery Me thod Room Air 03/30/24 11:30 MDM - Seizure MDM Narrative Medical decision making narrative: Postictal phase pace past patient is back to her baseline. No signs of secondary infection she does have some abnormalities in her urine she has grown out Pseudomonas in the past is not clearly infection she does not really have any white blood cells she does have +1 leukocyte Estrace and positive nitrite we will start her on cefdinir for now until the urine culture returns. Have her follow-up with her primary care. Should contact her neurologist to make sure they do not need to adjust medications levels were ordered on her antiseizure medications. Medical Records Attestation: I reviewed the patient's medical records. Lab Data Attestation: I reviewed the patient's lab results. 03/30/24 08:34 03/30/24 08:34 Labs: Radiology Impressions Chest X-Ray 03/30/24 08:13 IMPRESSION: Stable chest with no acute abnormality. Laboratory Results WBC 6.94 10^3/uL (3.29-11.43) 03/30/24 08:34 RBC 3.49 10^6/uL (3.85-5.65) L 03/30/24 08:34 Hgb 12.00 g/dL (11.27-16.99) 03/30/24 08:34 Hct 38.5 % (36-47) 03/30/24 08:34 MCV 110.3 fl (85-98) H 03/30/24 08:34 MCH 34.4 pg (27-33) H 03/30/24 08:34 MCHC 31.2 g/dL (30-55) 03/30/24 08:34 RDW 13.6 % (12.1-15.1) 03/30/24 08:34 Plt Count 220 10^3/cmm (157-399) 03/30/24 08:34 MPV 9.3 fL (7.4-10.4) 03/30/24 08:34 Neut % (Auto) 66.8 % 03/30/24 08:34 Lymph % (Auto) 20.0 % 03/30/24 08:34 [place] % (Auto) 8.2 % 03/30/24 08:34 Eos % (Auto) 3.7 % 03/30/24 08:34 Baso % (Auto) 0.7 % 03/30/24 08:34 Neut # (Auto) 4.63 10^3/uL (1.8-7.7) 03/30/24 08:34 Lymph # (Auto) 1.4 10^3/uL (0.8-4.8) 03/30/24 08:34 [place] # (Auto) 0.6 10^3/uL (0.2-0.9) 03/30/24 08:34 Eos # (Auto) 0.3 10^3/uL (0.0-0.8) 03/30/24 08:34 Baso # (Auto) 0.1 10^3/uL (0.0-0.1) 03/30/24 08:34 Nucleated RBC % (auto) 0 % 03/30/24 08:34 Nucleated RBCs # 0.0 /100WBC 03/30/24 08:34 Sodium 140 mmol/L (136-145) 03/30/24 08:34 Potassium 4.5 mmol/L (3.5-5.1) 03/30/24 08:34 Chloride 104 mmol/L (98-107) 03/30/24 08:34 Carbon Dioxide 29 mmol/L (22-29) 03/30/24 08:34 Anion Gap 11.5 (5-19) 03/30/24 08:34 BUN 13 mg/dL (8-23) 03/30/24 08:34 Creatinine 0.6 mg/dL (0.5-0.9) 03/30/24 08:34 GFR Calculation 99.1 mL/min (90-130) 03/30/24 08:34 Glucose 104 mg/dL (65-115) 03/30/24 08:34 Calculated Osmolality 290 mOsm/kg (285-295) 03/30/24 08:34 Lactic Acid 1.9 mmol/L (0.5-2.2) 03/30/24 08:34 Calcium 8.0 mg/dL (8.5-10.5) L 03/30/24 08:34 Magnesium 1.9 mg/dL (1.7-2.3) 03/30/24 08:34 Total Bilirubin 0.3 mg/dL (0.15-1.2) 03/30/24 08:34 AST 35 U/L (0-32) H 03/30/24 08:34 ALT 23 U/L (0-33) 03/30/24 08:34 Alkaline Phosphatase 111 U/L (35-105) H 03/30/24 08:34 Ammonia 24 umol/L (11-51) 03/30/24 08:34 Creatine Kinase 55 U/L (26-192) 03/30/24 08:34 Total Protein 6.6 g/dL (6.6-8.7) 03/30/24 08:34 Albumin 3.7 g/dL (3.5-5.2) 03/30/24 08:34 Globulin 2.9 g/dL (1.3-4.6) 03/30/24 08:34 Urine Color Dark yellow (Yellow) A 03/30/24 09:55 Urine Appearance Cloudy (CLEAR) A 03/30/24 09:55 Urine pH 8.0 (5-7) A 03/30/24 09:55 Ur Specific [place] 1.011 (1.005-1.030) 03/30/24 09:55 Urine Protein Negative (Negative) 03/30/24 09:55 Urine Glucose (UA) Negative (Normal) 03/30/24 09:55 Urine Ketones Negative (Negative) 03/30/24 09:55 Urine Blood Negative (Negative) 03/30/24 09:55 Urine Nitrate Positive (Negative) A 03/30/24 09:55 Urine Bilirubin Negative (Negative) 03/30/24 09:55 Urine Urobilinogen 1.0 mg/dL (Negative) 03/30/24 09:55 Ur Leukocyte Esterase 1+ (Negative) A 03/30/24 09:55 Urine RBC 0-2 /hpf (0-2) 03/30/24 09:55 Urine WBC 0-5 /hpf (0-5) 03/30/24 09:55 Ur Squamous Epith Cells 0-5 /hpf (0-5) 03/30/24 09:55 Amorphous Sediment 1+ /hpf 03/30/24 09:55 Urine Bacteria Trace /hpf (NONE) 03/30/24 09:55 Hyaline Casts 0.40 /lpf 03/30/24 09:55 All radiology interpretation(s) finalized by discharge Discharge Plan Discharge Patient Disposition: Home Clinical Impression: Generalized seizure Condition: Stable Prescriptions: New cefdinir 300 mg capsule 300 mg PO BID 5 Days Qty: 10 0RF No Action folic acid 1 mg tablet 1 mg PO DAILY@08 montelukast [Singulair] 10 mg tablet 10 mg PO DAILY@08 multivitamin Tablet 1 tab PO DAILY@08 polyethylene glycol 3350 [Miralax] 17 gram/dose powder 17 gm PO DAILY@08 Rx Instructions: with h2o or juice fluticasone propionate [Flonase Allergy Relief] 50 mcg/actuation spray,suspension 1 spray INTRANASAL DAILY@08 Rx Instructions: administer into each nostril pantoprazole [Protonix] 40 mg tablet,delayed release (DR/EC) 40 mg PO DAILY@08 zonisamide [Zonegran] 100 mg capsule 100 mg PO BID@08,20 phenazopyridine [Azo Urinary Pain Relief] 95 mg tablet 190 mg PO TID PRN (Reason: Bladder Spasms) acetaminophen [Tylenol] 325 mg capsule 650 mg PO Q6H PRN (Reason: Pain or elevated temp) simethicone [Gas-X Extra Strength] 125 mg capsule 125 mg PO Q8H PRN (Reason: Stomach Upset) ondansetron HCl 4 mg Tablet 4 mg PO Q4H PRN (Reason: Nausea And Vomiting) sucralfate 100 mg/mL suspension 10 ml PO BID prednisone 5 mg tablet 5 mg PO QAM loperamide [Anti-Diarrheal (loperamide)] 2 mg tablet 2 mg PO QID PRN (Reason: Diarrhea) buspirone 10 mg tablet 10 mg PO TID clonazepam 0.25 mg tablet,disintegrating 0.25 mg PO BID budesonide-formoterol 80-4.5 mcg/actuation HFA aerosol inhaler 2 puff INHALATION BID lacosamide [Vimpat] 150 mg tablet 150 mg PO BID tramadol 50 mg Tablet 50 mg PO Q4H (DME) [place] Choice Neb Kit-Adult Misc See Rx Instructions .Route Qty: 1 0RF Rx Instructions: As directed albuterol sulfate 5 mg/mL solution for nebulization 5 mg inhalation TID PRN (Reason: shortness of breath or wheezing) Qty: 600 0RF fluoxetine 20 mg Tablet 20 mg PO DAILY@12 Rx Instructions: with 10mg caps Acidophilus Tablet,Chewable 1 tab PO DAILY@08 albuterol sulfate 90 mcg/actuation Hfa Aerosol Inhaler 2 puff INHALATION QID PRN (Reason: Shortness Of Breath) clotrimazole 1 % Cream See Rx Instructions .ROUTE .COMPLEX Rx Instructions: Apply to rash twice daily until clear then use as needed. Nutritional Drink Liquid 1 ea PO TID@09,,19 diclofenac sodium 1 % Gel 4 g TOPICAL QID PRN (Reason: Pain) Rx Instructions: apply to single knee, ankle, foot; for foot includes sole/toes/top of foot famotidine 20 mg tablet 20 mg PO BID@08,20 (DME) Breathe Right Strip TOPICAL Rx Instructions: prn levetiracetam 500 mg tablet 1,000 mg PO BID 30 Days Qty: 60 0RF Cough Drops See Rx Instructions .ROUTE .COMPLEX Rx Instructions: may keep at bedside prn Systane (propylene glycol) 0.4-0.3 % Drops 1 drp ophthalmic (eye) TID Rx Instructions: both eyes fluoxetine 10 mg capsule 10 mg PO DAILY@12 Rx Instructions: with 20mg cap dextromethorphan-guaifenesin [Tussin DM Cough and Chest] 5-100 mg/5 mL liquid 10 ml PO BID PRN (Reason: Cough) phenytoin [Dilantin Infatabs] 50 mg tablet,chewable 50 mg PO TID@08,14,20 Discharge Orders: Discharge ED (Routine); Ordered 03/30/24 Ordered By: Gil Alexander Referrals: Marilyn Trivedi APN [Primary Care Provider] - Discharge Diet: Usual diet Discharge Activity: Resume usual activity Patient Instructions: Opioid Safety, Pain Management Activity Restrictions/Additional Instructions: Thank you for choosing [facility] for your healthcare needs today. It is very important that you follow up as instructed or that you return to the Emergency Department should you have concerns or if your condition changes or worsens in any way. You are seen today for breakthrough seizure. We did levels on the ER zonisamide and Keppra. We are given an IV dose of Keppra and oral dose of this and also might in the emergency room. Urine showed a few abnormalities but no significant numbers of white blood cells. Will cover you with a short course of antibiotics until the culture results return the UA did not definitively show a bladder infection at this time. Your chest x-ray was otherwise normal and your vital signs were normal when you first arrived you are in a postictal phase which is typical after a seizure this resolved with time as they usually do. Follow-up with your neurologist for medication adjustments. 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
[2024-03-30 08:42] LABS: Basophils # 0.1 10^3/uL (0.0-0.1); Basophils % 0.7 %; Eosinophils # 0.3 10^3/uL (0.0-0.8); Eosinophils % 3.7 %; Hematocrit 38.5 % (36-47); Lymphocytes # 1.4 10^3/uL (0.8-4.8); Mean Corpuscular HGB Conc 31.2 g/dL (30-55); Mean Corpuscular Hemoglobin 34.4 pg (27-33); Mean Corpuscular Volume 110.3 fl (85-98); Mean Platelet Volume 9.3 fL (7.4-10.4); Monocytes # 0.6 10^3/uL (0.2-0.9); Monocytes % 8.2 %; Neutrophils # 4.63 10^3/uL (1.8-7.7); Neutrophils % 66.8 %; Nucleated Red Blood Cells % 0 %; Platelet Count 220 10^3/cmm (157-399); Red Blood Count 3.49 10^6/uL (3.85-5.65); Red Cell Distribution Width 13.6 % (12.1-15.1); White Blood Count 6.94 10^3/uL (3.29-11.43)
[2024-03-30 08:58] LABS: Ammonia 24 umol/L (11-51)
[2024-03-30 08:59] LABS: Alanine Aminotransferase 23 U/L (0-33); Albumin Level 3.7 g/dL (3.5-5.2); Alkaline Phosphatase 111 U/L (35-105); Blood Urea Nitrogen 13 mg/dL (8-23); Carbon Dioxide 29 mmol/L (22-29); Chloride 104 mmol/L (98-107); Creatine Phosphokinase 55 U/L (26-192); Globulin 2.9 g/dL (1.3-4.6); Glomerular Filtration Rate 99.1 mL/min (90-130); Glucose 104 mg/dL (65-115); Magnesium 1.9 mg/dL (1.7-2.3); Osmolality Calculated 290 mOsm/kg (285-295); Sodium 140 mmol/L (136-145); Total Bilirubin 0.3 mg/dL (0.15-1.2); Total Protein 6.6 g/dL (6.6-8.7)
[2024-03-30 09:00] VITALS: BP 145/81; PULSE 82; RESP 18; O2SAT 94
[2024-03-30 09:00] LABS: Lactic Sepsis W/Reflex 1.9 mmol/L (0.5-2.2)
[2024-03-30 09:02] LABS: Anion Gap 11.5 (5-19); Aspartate Amino Transferase 35 U/L (0-32); Potassium 4.5 mmol/L (3.5-5.1)
[2024-03-30] MEDS: levETIRAcetam 1,000 MG/100 ML PREMIX 400 MG IV (09:17)
[2024-03-30] MEDS: zonisamide 100 MG Capsule PO (09:32)
[2024-03-30 10:04] LABS: Bilirubin Urine Negative (Negative); Blood Urine Negative (Negative); Glucose Urine UA Negative (Normal); Ketones Urine Negative (Negative); Leukocyte Esterase Urine 1+ (Negative); Nitrate Urine Positive (Negative); Protein Urine Negative (Negative); Specific Gravity, Urine 1.011 (1.005-1.030); Urine Appearance Cloudy (CLEAR); Urine Color Dark Yellow (Yellow)
[2024-03-30 10:06] LABS: Add Urine Microscopic? YES; Bacteria Urine Trace /hpf; RBC Urine 0-2 /hpf (0-2); Squamous Epithelial Cell Urine 0-5 /hpf (0-5); WBC Urine 0-5 /hpf (0-5)
[2024-03-30 10:19] LABS: UA Slide Review UA Slide Review Perf
[2024-03-30 10:20] LABS: Amorphous Sediment Urine 1+ /hpf
[2024-03-30 11:06] LABS: Add Urine Culture? Yes
[2024-03-30 11:30] VITALS: BP 139/76; PULSE 75; O2SAT 94
[2024-03-30] MEDS: lacosamide 50 mg Tablet 150 MG PO (11:55)
[2024-03-30 12:03] VITALS: BP 142/78; PULSE 77; RESP 17; O2SAT 94
[2024-03-31 10:59] LABS: Levetiracetam Immunoassy 23.3 mcg/mL (6.0-46.0)
[2024-04-03 13:29] LABS: Lacosamide (Vimpat) 7 mcg/mL
== END 2024-03-30 13:00 | disposition home or self-care (01) ==
PROVIDERS: Emergency Provider Family Medicine; PCP Nurse Practitioner Family
DX: G40.89 Other seizures (principal)
CPT/HCPCS: 71045; 80053; 80177; 80299; 81001; 82140; 82550; 83605; 83735; 85025; 87077; 87086; 87186; 93005; 96365; 99285; J1953

== ENCOUNTER 2024-04-06 19:26 | Emergency (ER) | payer MEDICARE, MEDICAID, SELFPAY ==
[2024-04-06] VITALS (19 sets, daily range): BP systolic 131–163; BP diastolic 87–123; PULSE 94–107; RESP 20–28; O2SAT 89–96; BMI 25.4
--- NOTE | 2024-04-06 19:30 | CTR_ITS ---
PROCEDURE INFORMATION: Exam: CT Head Without Contrast Exam date and time: 04/06/2024 7:53 PM Age: 68 years old Clinical indication: Altered mental status/memory loss; Additional info: Encephalopathy, altered mental status TECHNIQUE: Imaging protocol: Computed tomography of the head without contrast. Radiation optimization: All CT scans at this facility use at least one of these dose optimization techniques: automated exposure control; mA and/or kV adjustment per patient size (includes targeted exams where dose is matched to clinical indication); or iterative reconstruction. COMPARISON: CT head wo con* [id number] 12/04/2023 2:13 PM RADIATION DOSE METRICS: Total DLP (mGy-cm): 1145.3 FINDINGS: Brain: Moderate diffuse white matter disease likely reflecting chronic microvascular ischemic changes. Cerebral ventricles: No ventriculomegaly. Paranasal sinuses: Visualized sinuses are unremarkable. No fluid levels. Mastoid air cells: Visualized mastoid air cells are well aerated. Bones: Left frontotemporal craniotomy changes with frontotemporal lobe cystic encephalomalacia, similar to prior exam. Soft tissues: Unremarkable. CT/CT head wo con* [id number] IMPRESSION: 1. Left frontotemporal craniotomy changes with frontotemporal lobe cystic encephalomalacia, similar to prior exam. 2. Moderate diffuse white matter disease likely reflecting chronic microvascular ischemic changes.
--- NOTE | 2024-04-06 19:30 | XRR_ITS ---
PROCEDURE INFORMATION: Exam: XR Chest Exam date and time: 04/06/2024 7:57 PM Age: 68 years old Clinical indication: Shortness of breath TECHNIQUE: Imaging protocol: Radiologic exam of the chest. Views: 1 view. COMPARISON: CR XR chest 1V portable [id number] 03/30/2024 8:34 AM FINDINGS: Tubes, catheters and devices: Left-sided suspected vagal stimulator. Lungs: Mild pulmonary vascular congestion. Pleural spaces: Unremarkable. No pleural effusion. No pneumothorax. Heart/Mediastinum: Cardiomegaly and pulmonary vascular congestion. Bones/joints: Unremarkable. XR/XR chest 1V portable [id number] IMPRESSION: 1. Cardiomegaly and pulmonary vascular congestion. 2. Mild pulmonary vascular congestion. 3. Left-sided suspected vagal stimulator.
--- NOTE | 2024-04-06 19:42 | ECG_ITS ---
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 Measurements Intervals [place] Rate: 104 P: 38 MD: 175 QRS: 82 QRSD: 80 T: 76 QT: 347 QTc: 458 Interpretive Statements SINUS TACHYCARDIA ABNORMAL RHYTHM ECG Compared to ECG 03/30/2024 10:07:25 Sinus rhythm no longer present Electronically Signed On 04-09-2024 21:16:32 TECHNICAL IMPLEMENTATION LEAD by Florida Rivera M.D. [email or web address]
--- NOTE | 2024-04-06 20:04 | ED_ITS ---
HPI - Seizure 2 General: Chief Complaint: Seizure Stated Complaint: SEIZURE Time Seen by Provider: 04/06/24 19:27 History of Present Illness: HPI Narrative: 68-year-old female with a history of sei zure disorder and a head injury with intellectual disability who presents from a half-way by ambulance after having had a seizure. She received IM Versed and is no longer seizing but is quite somnolent. They say at baseline she is alert and oriented to person place and time. Apparently she was here last week with a similar presentation. There is report that she had been feeling more short of breath than usual. She has as needed oxygen and has been using it. Otherwise no history able to be obtained at this time. Related Data Home Medications Medication Instructions Recorded Confirmed acetaminophen 325 mg capsule 650 mg PO Q6H PRN Pain or elevated 11/25/19 03/30/24 (Tylenol) temp fluticasone propionate 50 1 spray intranasal DAILY@11/25/19 03/30/24 mcg/actuation nasal spray,suspension (Flonase Allergy Relief) folic acid 1 mg tablet 1 mg PO DAILY@11/25/19 03/30/24 montelukast 10 mg tablet 10 mg PO DAILY@11/25/19 03/30/24 (Singulair) multivitamin 1 tab PO DAILY@11/25/19 03/30/24 pantoprazole 40 mg tablet,delayed 40 mg PO DAILY@11/25/19 03/30/24 release (Protonix) phenazopyridine 95 mg tablet (Azo 190 mg PO TID PRN Bladder Spasms 11/25/19 03/30/24 Urinary Pain Relief) polyethylene glycol 3350 17 17 gm PO DAILY@11/25/19 03/30/24 gram/dose oral powder (Miralax) simethicone 125 mg capsule (Gas-X 125 mg PO Q8H PRN Stomach Upset 11/25/19 03/30/24 Extra Strength) zonisamide 100 mg capsule 100 mg PO BID@11/25/19 03/30/24 (Zonegran) Lactobacillus acidophilus 1 tab PO DAILY@10/15/21 03/30/24 (Acidophilus chewable tablet) albuterol sulfate 90 mcg/actuation 2 puff inhalation QID PRN 10/15/21 03/30/24 aerosol inhaler Shortness Of Breath clotrimazole 1 % topical cream See Rx Instructions .Route .COMPLEX 10/15/21 03/30/24 diclofenac sodium 1 % topical gel 4 g topical QID PRN Pain 10/15/21 03/30/24 fluoxetine 20 mg tablet 20 mg PO DAILY@12 10/15/21 03/30/24 food supplemt, lactose-reduced 1 ea PO TID@09,13,19 10/15/21 03/30/24 (Nutritional Drink oral liquid) ondansetron HCl 4 mg tablet 4 mg PO Q4H PRN Nausea And Vomiting 03/09/22 03/30/24 famotidine 20 mg tablet 20 mg PO BID@08,06/01/22 03/30/24 nasal dilators (Breathe Right 06/01/22 03/30/24 strips) Cough Drops See Rx Instructions .Route .COMPLEX 06/07/22 03/30/24 dextromethorphan-guaifenesin 5 10 ml PO BID PRN Cough 06/07/22 03/30/24 mg-100 mg/5 mL oral liquid (Mimi DM Cough and Chest) fluoxetine 10 mg capsule 10 mg PO DAILY@12 06/07/22 03/30/24 peg 400-propylene glycol 0.4 %-0.3 1 drp ophthalmic (eye) TID 06/07/22 03/30/24 % eye drops (Systane (propylene glycol)) phenytoin 50 mg chewable tablet 50 mg PO TID@,,06/07/22 03/30/24 (Dilantin Infatabs) budesonide-formoterol HFA 80 2 puff inhalation BID 12/04/23 03/30/24 mcg-4.5 mcg/actuation aerosol inhaler buspirone 10 mg tablet 10 mg PO TID 12/04/23 03/30/24 clonazepam 0.25 mg disintegrating 0.25 mg PO BID 12/04/23 03/30/24 tablet lacosamide 150 mg tablet (Vimpat) 150 mg PO BID 12/04/23 03/30/24 loperamide 2 mg tablet 2 mg PO QID PRN Diarrhea 12/04/23 03/30/24 (Anti-Diarrheal (loperamide)) prednisone 5 mg tablet 5 mg PO QAM 12/04/23 03/30/24 sucralfate 100 mg/mL oral 10 ml PO BID 12/04/23 03/30/24 suspension tramadol 50 mg tablet 50 mg PO Q4H pain 03/04/24 03/30/24 Previous Rx's Medication Instructions Recorded levetiracetam 500 mg tablet 1,000 mg (2 x 500 mg) PO BID 30 06/06/22 days #60 tabs albuterol sulfate 5 mg/mL(0.5 %) 5 mg inhalation TID PRN shortness 03/04/24 solution for nebulization of breath or wheezing #600 mL nebulizer accessories ([place] #1 ea 03/04/24 Choice Nebulizer Kit-Adult) Allergies Allergy/AdvReac Type Severity Reaction Status Date / Time aspirin Allergy Unknown Verified 04/06/24 19:34 Influenza Virus Vaccines Allergy Unknown Verified 04/06/24 19:34 levofloxacin [From Levaquin] Allergy ALGY-Hives Verified 04/06/24 19:34 vancomycin Allergy ALGY-Hives Verified 04/06/24 19:34 Review of Systems 2 General: Reports: ROS unobtainable due to endotracheal tube and ROS unobtainable due to medical condition PFSH ED 2 PFSH: Medical History Acquired intellectual disability Dehydration Altered mental status Rheumatoid arthritis Seizures Brain injury Urinary retention Encephalopathy chronic Generalized epilepsy Epilepsy Surgical History History of craniotomy Family History Other No pertinent family history Social History Smoking and tobacco/nicotine status: never used tobacco/nicotine Physical Exam 2 Narrative: EXAM NARRATIVE: General: Somnolent but arousable Skin: Warm, dry Head: Normocephalic, atraumatic. Neck: Supple, trachea midline. Eye: Extraocular movements are intact. Ears, nose, mouth and throat: Dry oral mucosa. Cardiovascular: Regular rate and rhythm, Normal peripheral perfusion. Respiratory: Lungs are clear to auscultation, respirations are non-labored, breath sounds are equal, Symmetrical chest wall expansion. Gastrointestinal: Soft, Nontender, Non distended, Normal bowel sounds. Musculoskeletal: no deformity. Neurological: Somnolent but oriented when awakened, No obvious focal neurological deficit observed. Psychiatric: unable to assess. Course 2 Vital Signs: Vital signs: Vital Signs Pulse Rate 97 04/06/24 22:32 Respiratory Rate 20 H 04/06/24 22:32 Blood Pressure 163/87 04/06/24 22:32 Pulse Oximetry 92 04/06/24 22:32 Oxygen Delivery Me thod Nasal Cannula 04/06/24 22:32 Oxygen Flow Rate 2 04/06/24 22:32 MDM - Seizure MDM Narrative Medical decision making narrative: Medical decision making: Differential diagnosis for this patient with a complaint of seizure like activity would include but not be limited to, and based on the above HPI, review of systems and physical exam: seizure, DT's, alcohol withdrawal, brain malignancy, pseudo-seizure, syncope. Orders placed to evaluate differential diagnosis based on the above differential, HPI and physical exam EKG: Time 1941. Rate 104. Sinus tachycardia, No ST-T changes, no ectopy, normal SD & QRS intervals, This was reviewed and interpreted by myself the ER physician at 194. Chest x-ray: Cardiomegaly with mild pulmonary congestion, left-sided vagal stimulator. No obvious infiltrates. This was reviewed and interpreted by myself the emergency room physician. I also reviewed the radiology report. CT head: Frontotemporal craniotomy changes with a frontal temporal lobe cystic encephalomalacia similar to previous. Microvascular ischemic changes. No acute intracranial process. no intracranial hemorrhage, no evidence of infarct. no evidence of acute fracture.This was reviewed and interpreted by myself the ER physician. Lab Review: Laboratory results were reviewed and interpreted by myself the emergency room physician No leukocytosis. No anemia. No renal failure. Lactate is not elevated. I reviewed the patient's medical record. Reexamination: Patient is much more awake and alert. Closer to her baseline. There is a caregiver present. We discussed that she needs to follow with neurologist and she actually has an appointment tomorrow in [place] with her neurologist. There was some concern for heart failure on x-ray. Her proBNP is not elevated and she does not really have symptoms of heart failure with no edema or anything like that. No chest pain. She is stable on her home oxygen. I will give a single dose of Lasix here in the emergency room to see if that helps because she has had some mild respiratory symptoms. No orthopnea though and again no swelling. Assessment and plan: Recurrent seizure ? Patient has improved and is ready to go home - Discharged home - Discussed plan with patient. Answered any questions. - Evaluation and treatment of this problem were appropriate in the emergency setting. Lab Data 04/06/24 20:14 04/06/24 20:14 Labs: Radiology Impressions Chest X-Ray 04/06/24 19:30 IMPRESSION: 1. Cardiomegaly and pulmonary vascular congestion. 2. Mild pulmonary vascular congestion. 3. Left-sided suspected vagal stimulator. Head CT 04/06/24 19:30 IMPRESSION: 1. Left frontotemporal craniotomy changes with frontotemporal lobe cystic encephalomalacia, similar to prior exam. 2. Moderate diffuse white matter disease likely reflecting chronic microvascular ischemic changes. Laboratory Results WBC 8.92 10^3/uL (3.29-11.43) 04/06/24 20:14 RBC 3.68 10^6/uL (3.85-5.65) L 04/06/24 20:14 Hgb 12.40 g/dL (11.27-16.99) 04/06/24 20:14 Hct 39.6 % (36-47) 04/06/24 20:14 MCV 107.6 fl (85-98) H 04/06/24 20:14 MCH 33.7 pg (27-33) H 04/06/24 20:14 MCHC 31.3 g/dL (30-55) 04/06/24 20:14 RDW 12.9 % (12.1-15.1) 04/06/24 20:14 Plt Count 252 10^3/cmm (157-399) 04/06/24 20:14 MPV 9.2 fL (7.4-10.4) 04/06/24 20:14 Neut % (Auto) 77.2 % 04/06/24 20:14 Lymph % (Auto) 12.8 % 04/06/24 20:14 Sierra % (Auto) 7.8 % 04/06/24 20:14 Eos % (Auto) 1.8 % 04/06/24 20:14 Baso % (Auto) 0.2 % 04/06/24 20:14 Neut # (Auto) 6.88 10^3/uL (1.8-7.7) 04/06/24 20:14 Lymph # (Auto) 1.1 10^3/uL (0.8-4.8) 04/06/24 20:14 Sierra # (Auto) 0.7 10^3/uL (0.2-0.9) 04/06/24 20:14 Eos # (Auto) 0.2 10^3/uL (0.0-0.8) 04/06/24 20:14 Baso # (Auto) 0.0 10^3/uL (0.0-0.1) 04/06/24 20:14 Nucleated RBC % (auto) 0 % 04/06/24 20:14 Nucleated RBCs # 0.0 /100WBC 04/06/24 20:14 Specimen Type Arterial 04/06/24 19:30 Sample Site Radial, left 04/06/24 19:30 ABG pH 7.38 (7.35-7.45) 04/06/24 19:30 ABG pCO2 46.6 mmHg (35-45) H 04/06/24 19:30 ABG pO2 108.0 mmHg (80.0-100.0) H 04/06/24 19:30 ABG PO2/FiO2 Ratio 385 04/06/24 19:30 ABG HCO3 27.3 mmol/L (22-26) H 04/06/24 19:30 ABG O2 Saturation 96.7 04/06/24 19:30 ABG Base Excess 1.6 mmol/L (-2.0-2.0) 04/06/24 19:30 Gustavo Test Pos 04/06/24 19:30 A-a O2 Gradient 4.3 mmHg (5-10) L 04/06/24 19:30 Hematocrit 36.7 % (37-47) L 04/06/24 19:30 Hgb O2 Saturation 93.6 % (95-100) L 04/06/24 19:30 Carboxyhemoglobin 0.7 %THgb (0.4-20.1) 04/06/24 19:30 Methemoglobin 2.5 % (0.4-1.5) H 04/06/24 19:30 Total Hemoglobin 12.0 g/dL (12-16) 04/06/24 19:30 Sodium 143.0 mmol/L (131-143) 04/06/24 19:30 Potassium 4.2 mmol/L (3.5-5.0) 04/06/24 19:30 Glucose 109.0 mg/dL (70-115) 04/06/24 19:30 Ionized Calcium 1.2 mmol/L (1.1-1.4) 04/06/24 19:30 O2 Delivery Device Nc 04/06/24 19:30 O2 Liters/Min 2.0 % 04/06/24 19:30 FiO2 28.0 % 04/06/24 19:30 Molding Associate ID Ed 04/06/24 19:30 Sodium 138 mmol/L (136-145) 04/06/24 20:14 Potassium 4.5 mmol/L (3.5-5.1) 04/06/24 20:14 Chloride 102 mmol/L (98-107) 04/06/24 20:14 Carbon Dioxide 26 mmol/L (22-29) 04/06/24 20:14 Anion Gap 14.5 (5-19) 04/06/24 20:14 BUN 17 mg/dL (8-23) 04/06/24 20:14 Creatinine 0.7 mg/dL (0.5-0.9) 04/06/24 20:14 GFR Calculation 83.0 mL/min (90-130) L 04/06/24 20:14 Glucose 129 mg/dL (65-115) H 04/06/24 20:14 Calculated Osmolality 289 mOsm/kg (285-295) 04/06/24 20:14 Lactic Acid 2.1 mmol/L (0.5-2.2) 04/06/24 20:14 Calcium 8.3 mg/dL (8.5-10.5) L 04/06/24 20:14 Total Bilirubin 0.4 mg/dL (0.15-1.2) 04/06/24 20:14 AST 24 U/L (0-32) 04/06/24 20:14 ALT 23 U/L (0-33) 04/06/24 20:14 Alkaline Phosphatase 110 U/L (35-105) H 04/06/24 20:14 NT-Pro-B Natriuret Pep 203 pg/mL (0-125) H 04/06/24 20:14 Total Protein 7.0 g/dL (6.6-8.7) 04/06/24 20:14 Albumin 3.8 g/dL (3.5-5.2) 04/06/24 20:14 Globulin 3.2 g/dL (1.3-4.6) 04/06/24 20:14 Urine Color Dark yellow (Yellow) A 04/06/24 22:15 Urine Appearance Clear (CLEAR) 04/06/24 22:15 Urine pH 7.5 (5-7) 04/06/24 22:15 Ur Specific Forrest 1.007 (1.005-1.030) 04/06/24 22:15 Urine Protein Negative (Negative) 04/06/24 22:15 Urine Glucose (UA) Negative (Normal) 04/06/24 22:15 Urine Ketones Negative (Negative) 04/06/24 22:15 Urine Blood Negative (Negative) 04/06/24 22:15 Urine Nitrate Negative (Negative) 04/06/24 22:15 Urine Bilirubin Negative (Negative) 04/06/24 22:15 Urine Urobilinogen 1.0 mg/dL (Negative) 04/06/24 22:15 Ur Leukocyte Esterase Negative (Negative) 04/06/24 22:15 Urine RBC 0-2 /hpf (0-2) 04/06/24 22:15 Urine WBC 0-5 /hpf (0-5) 04/06/24 22:15 Ur Squamous Epith Cells 0-5 /hpf (0-5) 04/06/24 22:15 Amorphous Sediment Not Reportable 04/06/24 22:15 Urine Bacteria None seen /hpf (NONE) 04/06/24 22:15 Hyaline Casts 2.46 /lpf 04/06/24 22:15 Coronavirus (PCR) Negative (Negative) 04/06/24 22:15 Influenza A (PCR) Negative (Negative) 04/06/24 22:15 Influenza Type B (PCR) Negative (Negative) 04/06/24 22:15 RSV (PCR) Negative (Negative) 04/06/24 22:15 All radiology interpretation(s) finalized by discharge Discharge Plan Discharge Patient Disposition: Home Clinical Impression: Epileptic seizure Condition: Stable Prescriptions: No Action folic acid 1 mg tablet 1 mg PO DAILY@08 montelukast [Singulair] 10 mg tablet 10 mg PO DAILY@08 multivitamin Tablet 1 tab PO DAILY@08 polyethylene glycol 3350 [Miralax] 17 gram/dose powder 17 gm PO DAILY@08 Rx Instructions: with h2o or juice fluticasone propionate [Flonase Allergy Relief] 50 mcg/actuation spray,suspension 1 spray INTRANASAL DAILY@08 Rx Instructions: administer into each nostril pantoprazole [Protonix] 40 mg tablet,delayed release (DR/EC) 40 mg PO DAILY@08 zonisamide [Zonegran] 100 mg capsule 100 mg PO BID@08,20 phenazopyridine [Azo Urinary Pain Relief] 95 mg tablet 190 mg PO TID PRN (Reason: Bladder Spasms) acetaminophen [Tylenol] 325 mg capsule 650 mg PO Q6H PRN (Reason: Pain or elevated temp) simethicone [Gas-X Extra Strength] 125 mg capsule 125 mg PO Q8H PRN (Reason: Stomach Upset) ondansetron HCl 4 mg Tablet 4 mg PO Q4H PRN (Reason: Nausea And Vomiting) sucralfate 100 mg/mL suspension 10 ml PO BID prednisone 5 mg tablet 5 mg PO QAM loperamide [Anti-Diarrheal (loperamide)] 2 mg tablet 2 mg PO QID PRN (Reason: Diarrhea) buspirone 10 mg tablet 10 mg PO TID clonazepam 0.25 mg tablet,disintegrating 0.25 mg PO BID budesonide-formoterol 80-4.5 mcg/actuation HFA aerosol inhaler 2 puff INHALATION BID lacosamide [Vimpat] 150 mg tablet 150 mg PO BID tramadol 50 mg Tablet 50 mg PO Q4H (DME) [place] Choice Neb Kit-Adult Misc See Rx Instructions .Route Qty: 1 0RF Rx Instructions: As directed albuterol sulfate 5 mg/mL solution for nebulization 5 mg inhalation TID PRN (Reason: shortness of breath or wheezing) Qty: 600 0RF fluoxetine 20 mg Tablet 20 mg PO DAILY@12 Rx Instructions: with 10mg caps Acidophilus Tablet,Chewable 1 tab PO DAILY@08 albuterol sulfate 90 mcg/actuation Hfa Aerosol Inhaler 2 puff INHALATION QID PRN (Reason: Shortness Of Breath) clotrimazole 1 % Cream See Rx Instructions .ROUTE .COMPLEX Rx Instructions: Apply to rash twice daily until clear then use as needed. Nutritional Drink Liquid 1 ea PO TID@,,19 diclofenac sodium 1 % Gel 4 g TOPICAL QID PRN (Reason: Pain) Rx Instructions: apply to single knee, ankle, foot; for foot includes sole/toes/top of foot famotidine 20 mg tablet 20 mg PO BID@08,20 (DME) Breathe Right Strip TOPICAL Rx Instructions: prn levetiracetam 500 mg tablet 1,000 mg PO BID 30 Days Qty: 60 0RF Cough Drops See Rx Instructions .ROUTE .COMPLEX Rx Instructions: may keep at bedside prn Systane (propylene glycol) 0.4-0.3 % Drops 1 drp ophthalmic (eye) TID Rx Instructions: both eyes fluoxetine 10 mg capsule 10 mg PO DAILY@12 Rx Instructions: with 20mg cap dextromethorphan-guaifenesin [Tussin DM Cough and Chest] 5-100 mg/5 mL liquid 10 ml PO BID PRN (Reason: Cough) phenytoin [Dilantin Infatabs] 50 mg tablet,chewable 50 mg PO TID@08,14,20 Discharge Orders: Discharge ED (Routine); Ordered 04/06/24 Ordered By: Stephani Godoy Referrals: Marilyn Trivedi APN [Primary Care Provider] - Discharge Diet: Usual diet Discharge Activity: Increase activity as tolerated Patient Instructions: Recurrent Seizures in Adults (ED), Opioid Safety, Pain Management Activity Restrictions/Additional Instructions: Please keep your appointment with your neurologist Dr. Carter tomorrow. Thank you for choosing [facility] for your healthcare needs today. Please realize this is an emergency room and that we are providing you with a medical screening exam and this may not be complete and all inclusive of all the testing and or work up that you may need to determine your ailment or severity of your illness. You have been screened and evaluated and felt safe for discharge. Health conditions do change or evolve sometimes and as such it is important that you follow up with your Primary Doctor to be re checked, 3-5 days is a general good time frame for follow up. You are always welcome to return to the ED for re assessment if your symptoms are worsening or you have new concerns Coding Level of Care Code ED [employer]er for Ady Vidal
[2024-04-06 20:22] LABS: Basophils % 0.2 %; Eosinophils # 0.2 10^3/uL (0.0-0.8); Eosinophils % 1.8 %; Hematocrit 39.6 % (36-47); Lymphocytes # 1.1 10^3/uL (0.8-4.8); Lymphocytes % 12.8 %; Mean Corpuscular HGB Conc 31.3 g/dL (30-55); Mean Corpuscular Hemoglobin 33.7 pg (27-33); Mean Corpuscular Volume 107.6 fl (85-98); Mean Platelet Volume 9.2 fL (7.4-10.4); Monocytes # 0.7 10^3/uL (0.2-0.9); Monocytes % 7.8 %; Neutrophils # 6.88 10^3/uL (1.8-7.7); Neutrophils % 77.2 %; Nucleated Red Blood Cells % 0 %; Platelet Count 252 10^3/cmm (157-399); Red Blood Count 3.68 10^6/uL (3.85-5.65); Red Cell Distribution Width 12.9 % (12.1-15.1); White Blood Count 8.92 10^3/uL (3.29-11.43)
[2024-04-06 20:40] LABS: Alanine Aminotransferase 23 U/L (0-33); Albumin Level 3.8 g/dL (3.5-5.2); Alkaline Phosphatase 110 U/L (35-105); Anion Gap 14.5 (5-19); Aspartate Amino Transferase 24 U/L (0-32); Blood Urea Nitrogen 17 mg/dL (8-23); Calcium 8.3 mg/dL (8.5-10.5); Carbon Dioxide 26 mmol/L (22-29); Chloride 102 mmol/L (98-107); Creatinine Clr Calc Pharmacy 53.3163; Globulin 3.2 g/dL (1.3-4.6); Glucose 129 mg/dL (65-115); Osmolality Calculated 289 mOsm/kg (285-295); Potassium 4.5 mmol/L (3.5-5.1); Sodium 138 mmol/L (136-145); Total Bilirubin 0.4 mg/dL (0.15-1.2)
[2024-04-06 20:41] LABS: Lactic Sepsis W/Reflex 2.1 mmol/L (0.5-2.2)
[2024-04-06 20:50] LABS: ABG PCO2 46.6 mmHg (35-45); ABG PH Result 7.38 (7.35-7.45); Alveolar-Arterial Oxygen Gradi 4.3 mmHg (5-10); Arterial Blood Gas Hematocrit 36.7 % (37-47); Base Excess ABG 1.6 mmol/L (-2.0-2.0); Blood Gas Allen Test Pos; Blood Gas Operator Identificat ED; Blood Gas Sample Site Radial, left; Blood Gas Sample Type Arterial; Carboxyhemoglobin 0.7 %THgb (0.4-20.1); HCO3 ABG 27.3 mmol/L (22-26); HGB O2 Sat 93.6 % (95-100); Ionized Calcium Level - ABG 1.2 mmol/L (1.1-1.4); Methemoglobin 2.5 % (0.4-1.5); Oxygen Device NC; Oxygen Saturation ABG 96.7; PO2 FiO2 Ratio Arterial Blood 385; Potassium Level - ABG 4.2 mmol/L (3.5-5.0)
[2024-04-06 22:07] LABS: Reflex Lactate Order REFLEX LACTIC ORDERD
[2024-04-06 22:24] LABS: Bilirubin Urine Negative (Negative); Blood Urine Negative (Negative); Glucose Urine UA Negative (Normal); Ketones Urine Negative (Negative); Leukocyte Esterase Urine Negative (Negative); Protein Urine Negative (Negative); Specific Gravity, Urine 1.007 (1.005-1.030); Urine Appearance Clear (CLEAR); Urine Color Dark Yellow (Yellow); pH Urine 7.5 (5-7)
[2024-04-06 22:29] LABS: Bacteria Urine None Seen /hpf; Hyaline Casts Urine 2.46 /lpf; RBC Urine 0-2 /hpf (0-2); Squamous Epithelial Cell Urine 0-5 /hpf (0-5); WBC Urine 0-5 /hpf (0-5)
[2024-04-06 22:45] LABS: Nitrate Urine Negative (Negative)
[2024-04-06 22:59] LABS: NT Pro B Type Natriuretic Pept 203 pg/mL (0-125)
[2024-04-06 22:59] LABS: Covid PCR NEGATIVE (Negative); Influenza A NEGATIVE (Negative); Influenza B NEGATIVE (Negative); Respiratory Syncytial Virus Ce NEGATIVE (Negative)
[2024-04-07 00:08] VITALS: BP 136/87; PULSE 94; RESP 20; O2SAT 96
[2024-04-07] MEDS: FUROsemide 10 mg/mL SDV 4mL 40 MG IVP (00:19)
[2024-04-07] MEDS: levETIRAcetam 2,000 MG/200 ML PREMIX 400 MG IV (00:32)
--- NOTE | 2024-04-07 00:42 | PC.NURSE ---
Addendum entered by Manpreet Saldaña RN 04/07/24 01:16: Discharge after IV Keppra per Dr. Godoy. Original Note: Seizure activity lasting for approximately 15 seconds observed by this nurse. Dr. Godoy notified with orders for IV Keppra. See MAR.
== END 2024-04-07 01:25 | disposition home or self-care (01) ==
PROVIDERS: Emergency Provider Emergency Medicine; PCP Nurse Practitioner Family
DX: G40.909 Epilepsy, unspecified, not intractable, without status epilepticus (principal); Z11.52 Encounter for screening for COVID-19
CPT/HCPCS: 0241U; 36415; 70450; 71045; 80051; 80053; 81001; 82330; 82805; 83605; 83880; 85025; 93005; 96365; 96375; 99285; J1940; J1953

== ENCOUNTER 2024-04-13 20:58 | Emergency (ER) | payer MEDICARE, MEDICAID, SELFPAY ==
[2024-04-13 21:00] VITALS: BP 158/86; PULSE 102; RESP 18; TEMP 36.7; O2SAT 92
--- NOTE | 2024-04-13 21:06 | ED_ITS ---
HPI - Seizure 2 General: Chief Complaint: Seizure Stated Complaint: SEIZURES Time Seen by Provider: 04/13/24 21:02 Mode of arrival: EMS Limitations: altered mental status History of Present Illness: HPI Narrative: Patient is a nonverbal 68-year-old female with a history of seizure disorder and head injury with intellectual disability from a [facility], patient presented by ambulance after having a seizure. They gave her 2.5 mg of Versed which stopped the seizure. Patient is quite somnolent at this time. She was seen last week with similar presentation. Seizure History: Yes Related Data Home Medications Medication Instructions Recorded Confirmed acetaminophen 325 mg capsule 650 mg PO Q6H PRN Pain or elevated 11/25/19 03/30/24 (Tylenol) temp fluticasone propionate 50 1 spray intranasal DAILY@11/25/19 03/30/24 mcg/actuation nasal spray,suspension (Flonase Allergy Relief) folic acid 1 mg tablet 1 mg PO DAILY@11/25/19 03/30/24 montelukast 10 mg tablet 10 mg PO DAILY@11/25/19 03/30/24 (Singulair) multivitamin 1 tab PO DAILY@11/25/19 03/30/24 pantoprazole 40 mg tablet,delayed 40 mg PO DAILY@11/25/19 03/30/24 release (Protonix) phenazopyridine 95 mg tablet (Azo 190 mg PO TID PRN Bladder Spasms 11/25/19 03/30/24 Urinary Pain Relief) polyethylene glycol 3350 17 17 gm PO DAILY@11/25/19 03/30/24 gram/dose oral powder (Miralax) simethicone 125 mg capsule (Gas-X 125 mg PO Q8H PRN Stomach Upset 11/25/19 03/30/24 Extra Strength) zonisamide 100 mg capsule 100 mg PO BID@11/25/19 03/30/24 (Zonegran) Lactobacillus acidophilus 1 tab PO DAILY@10/15/21 03/30/24 (Acidophilus chewable tablet) albuterol sulfate 90 mcg/actuation 2 puff inhalation QID PRN 10/15/21 03/30/24 aerosol inhaler Shortness Of Breath clotrimazole 1 % topical cream See Rx Instructions .Route .COMPLEX 10/15/21 03/30/24 diclofenac sodium 1 % topical gel 4 g topical QID PRN Pain 10/15/21 03/30/24 fluoxetine 20 mg tablet 20 mg PO DAILY@12 10/15/21 03/30/24 food supplemt, lactose-reduced 1 ea PO TID@09,13,19 10/15/21 03/30/24 (Nutritional Drink oral liquid) ondansetron HCl 4 mg tablet 4 mg PO Q4H PRN Nausea And Vomiting 03/09/22 03/30/24 famotidine 20 mg tablet 20 mg PO BID@,06/01/22 03/30/24 nasal dilators (Breathe Right 06/01/22 03/30/24 strips) Cough Drops See Rx Instructions .Route .COMPLEX 06/07/22 03/30/24 dextromethorphan-guaifenesin 5 10 ml PO BID PRN Cough 06/07/22 03/30/24 mg-100 mg/5 mL oral liquid (Tussin DM Cough and Chest) fluoxetine 10 mg capsule 10 mg PO DAILY@12 06/07/22 03/30/24 peg 400-propylene glycol 0.4 %-0.3 1 drp ophthalmic (eye) TID 06/07/22 03/30/24 % eye drops (Systane (propylene glycol)) phenytoin 50 mg chewable tablet 50 mg PO TID@,,06/07/22 03/30/24 (Dilantin Infatabs) budesonide-formoterol HFA 80 2 puff inhalation BID 12/04/23 03/30/24 mcg-4.5 mcg/actuation aerosol inhaler buspirone 10 mg tablet 10 mg PO TID 12/04/23 03/30/24 clonazepam 0.25 mg disintegrating 0.25 mg PO BID 12/04/23 03/30/24 tablet lacosamide 150 mg tablet (Vimpat) 150 mg PO BID 12/04/23 03/30/24 loperamide 2 mg tablet 2 mg PO QID PRN Diarrhea 12/04/23 03/30/24 (Anti-Diarrheal (loperamide)) prednisone 5 mg tablet 5 mg PO QAM 12/04/23 03/30/24 sucralfate 100 mg/mL oral 10 ml PO BID 12/04/23 03/30/24 suspension tramadol 50 mg tablet 50 mg PO Q4H pain 03/04/24 03/30/24 Previous Rx's Medication Instructions Recorded levetiracetam 500 mg tablet 1,000 mg (2 x 500 mg) PO BID 30 06/06/22 days #60 tabs albuterol sulfate 5 mg/mL(0.5 %) 5 mg inhalation TID PRN shortness 03/04/24 solution for nebulization of breath or wheezing #600 mL nebulizer accessories ([place] #1 ea 03/04/24 Choice Nebulizer Kit-Adult) diazepam 5 mg-7.5 mg-10 mg rectal 10 mg CA Q4H PRN seizure activity 04/13/24 kit 2 doses #1 ea Allergies Allergy/AdvReac Type Severity Reaction Status Date / Time aspirin Allergy Unknown Verified 04/13/24 21:07 Influenza Virus Vaccines Allergy Unknown Verified 04/13/24 21:07 levofloxacin [From Levaquin] Allergy ALGY-Hives Verified 04/13/24 21:07 vancomycin Allergy ALGY-Hives Verified 04/13/24 21:07 Review of Systems 2 General: Reports: ROS unobtainable due to mental status PFSH ED 2 PFSH: Medical History Acquired intellectual disability Dehydration Altered mental status Rheumatoid arthritis Seizures Brain injury Urinary retention Encephalopathy chronic Generalized epilepsy Epilepsy Surgical History History of craniotomy Family History Other No pertinent family history Social History Smoking and tobacco/nicotine status: never used tobacco/nicotine Physical Exam 2 Const: COMMON NORMALS: no acute distress, alert and well nourished Neck/C-Spine: COMMON NORMALS: no JVD Chest: COMMONS NORMALS: normal inspection of the chest and normal palpation of entire chest wall Resp: COMMON NORMALS: normal respiratory effort, No retractions, No use of accessory muscles and clear to auscultation bilaterally AUSCULTATION: clear to auscultation bilaterally Cardio: COMMON NORMALS: no JVD, regular rate, regular rhythm, S1 normal heart sound present, S2 normal heart sound present, No gallops present (Cardio), No clicks present (Cardio), No murmurs present (Cardio) and No rub (Cardio) R ATE: regular rate RHYTHM: regular rhythm HEART SOUNDS: S1 normal heart sound present and S2 normal heart sound present GI: COMMON NORMALS: Normal to inspection, nondistended, normoactive bowel sounds present, Soft to palpation, non-tender, No hepatosplenomegaly present and no masses PALPATION: Yes Soft to palpation and Yes No hepatosplenomegaly present Neuro: SENSORIUM/ORIENTATION: Yes alert Course 2 Vital Signs: Vital signs: Vital Signs Temperature 98.1 F 04/13/24 21:00 Pulse Rate 89 04/14/24 01:08 Respiratory Rate 17 04/13/24 21:07 Blood Pressure 139/90 04/14/24 01:08 Pulse Oximetry 92 04/14/24 01:08 Oxygen Delivery Me thod Nasal Cannula 04/13/24 21:07 Oxygen Flow Rate 1 04/13/24 21:07 MDM - Seizure MDM Narrative Medical decision making narrative: Patient presents with a seizure, 2.5 mg Versed was given by EMS. Patient arrives postictal. Lab work was obtained which is unremarkable, patient be discharged back to her facility. We will prescribe her some Diastat to use as needed. Medical Records Attestation: I reviewed the patient's medical records. Lab Data Attestation: I reviewed the patient's lab results. 04/13/24 21:08 04/13/24 21:08 Labs: Radiology Impressions Chest X-Ray 04/13/24 21:10 IMPRESSION: 1. Cardiomegaly and pulmonary vascular congestion. 2. Left-sided vagal stimulator. Laboratory Results WBC 8.81 10^3/uL (3.29-11.43) 04/13/24 21:08 RBC 3.35 10^6/uL (3.85-5.65) L 04/13/24 21:08 Hgb 11.60 g/dL (11.27-16.99) 04/13/24 21:08 Hct 35.0 % (36-47) L 04/13/24 21:08 MCV 104.5 fl (85-98) H 04/13/24 21:08 MCH 34.6 pg (27-33) H 04/13/24 21:08 MCHC 33.1 g/dL (30-55) 04/13/24 21:08 RDW 12.3 % (12.1-15.1) 04/13/24 21:08 Plt Count 254 10^3/cmm (157-399) 04/13/24 21:08 MPV 9.6 fL (7.4-10.4) 04/13/24 21:08 Neut % (Auto) 63.6 % 04/13/24 21:08 Lymph % (Auto) 25.5 % 04/13/24 21:08 [place] % (Auto) 6.5 % 04/13/24 21:08 Eos % (Auto) 3.4 % 04/13/24 21:08 Baso % (Auto) 0.5 % 04/13/24 21:08 Neut # (Auto) 5.61 10^3/uL (1.8-7.7) 04/13/24 21:08 Lymph # (Auto) 2.3 10^3/uL (0.8-4.8) 04/13/24 21:08 [place] # (Auto) 0.6 10^3/uL (0.2-0.9) 04/13/24 21:08 Eos # (Auto) 0.3 10^3/uL (0.0-0.8) 04/13/24 21:08 Baso # (Auto) 0.0 10^3/uL (0.0-0.1) 04/13/24 21:08 Nucleated RBC % (auto) 0 % 04/13/24 21:08 Nucleated RBCs # 0.0 /100WBC 04/13/24 21:08 Sodium 136 mmol/L (136-145) 04/13/24 21:08 Potassium 4.1 mmol/L (3.5-5.1) 04/13/24 21:08 Chloride 102 mmol/L (98-107) 04/13/24 21:08 Carbon Dioxide 25 mmol/L (22-29) 04/13/24 21:08 Anion Gap 13.1 (5-19) 04/13/24 21:08 BUN 16 mg/dL (8-23) 04/13/24 21:08 Creatinine 0.8 mg/dL (0.5-0.9) 04/13/24 21:08 GFR Calculation 71.1 mL/min (90-130) L 04/13/24 21:08 Glucose 180 mg/dL (65-115) H 04/13/24 21:08 Calculated Osmolality 288 mOsm/kg (285-295) 04/13/24 21:08 Calcium 7.8 mg/dL (8.5-10.5) L 04/13/24 21:08 Total Bilirubin 0.3 mg/dL (0.15-1.2) 04/13/24 21:08 AST 21 U/L (0-32) 04/13/24 21:08 ALT 21 U/L (0-33) 04/13/24 21:08 Alkaline Phosphatase 114 U/L (35-105) H 04/13/24 21:08 Total Protein 6.5 g/dL (6.6-8.7) L 04/13/24 21:08 Albumin 3.7 g/dL (3.5-5.2) 04/13/24 21:08 Globulin 2.8 g/dL (1.3-4.6) 04/13/24 21:08 All radiology interpretation(s) finalized by discharge Other Data Attestation for Other Data: I personally reviewed and interpreted the following: Discharge Plan Discharge Patient Disposition: Home Clinical Impression: Epileptic seizure Condition: Stable Prescriptions: New diazepam 5-7.5-10 mg kit 10 mg CA Q4H PRN (Reason: seizure activity) Qty: 1 0RF No Action folic acid 1 mg tablet 1 mg PO DAILY@08 montelukast [Singulair] 10 mg tablet 10 mg PO DAILY@08 multivitamin Tablet 1 tab PO DAILY@08 polyethylene glycol 3350 [Miralax] 17 gram/dose powder 17 gm PO DAILY@08 Rx Instructions: with h2o or juice fluticasone propionate [Flonase Allergy Relief] 50 mcg/actuation spray,suspension 1 spray INTRANASAL DAILY@08 Rx Instructions: administer into each nostril pantoprazole [Protonix] 40 mg tablet,delayed release (DR/EC) 40 mg PO DAILY@08 zonisamide [Zonegran] 100 mg capsule 100 mg PO BID@08,20 phenazopyridine [Azo Urinary Pain Relief] 95 mg tablet 190 mg PO TID PRN (Reason: Bladder Spasms) acetaminophen [Tylenol] 325 mg capsule 650 mg PO Q6H PRN (Reason: Pain or elevated temp) simethicone [Gas-X Extra Strength] 125 mg capsule 125 mg PO Q8H PRN (Reason: Stomach Upset) ondansetron HCl 4 mg Tablet 4 mg PO Q4H PRN (Reason: Nausea And Vomiting) sucralfate 100 mg/mL suspension 10 ml PO BID prednisone 5 mg tablet 5 mg PO QAM loperamide [Anti-Diarrheal (loperamide)] 2 mg tablet 2 mg PO QID PRN (Reason: Diarrhea) buspirone 10 mg tablet 10 mg PO TID clonazepam 0.25 mg tablet,disintegrating 0.25 mg PO BID budesonide-formoterol 80-4.5 mcg/actuation HFA aerosol inhaler 2 puff INHALATION BID lacosamide [Vimpat] 150 mg tablet 150 mg PO BID tramadol 50 mg Tablet 50 mg PO Q4H (DME) [place] Choice Neb Kit-Adult Misc See Rx Instructions .Route Qty: 1 0RF Rx Instructions: As directed albuterol sulfate 5 mg/mL solution for nebulization 5 mg inhalation TID PRN (Reason: shortness of breath or wheezing) Qty: 600 0RF fluoxetine 20 mg Tablet 20 mg PO DAILY@12 Rx Instructions: with 10mg caps Acidophilus Tablet,Chewable 1 tab PO DAILY@08 albuterol sulfate 90 mcg/actuation Hfa Aerosol Inhaler 2 puff INHALATION QID PRN (Reason: Shortness Of Breath) clotrimazole 1 % Cream See Rx Instructions .ROUTE .COMPLEX Rx Instructions: Apply to rash twice daily until clear then use as needed. Nutritional Drink Liquid 1 ea PO TID@,,19 diclofenac sodium 1 % Gel 4 g TOPICAL QID PRN (Reason: Pain) Rx Instructions: apply to single knee, ankle, foot; for foot includes sole/toes/top of foot famotidine 20 mg tablet 20 mg PO BID@08,20 (DME) Breathe Right Strip TOPICAL Rx Instructions: prn levetiracetam 500 mg tablet 1,000 mg PO BID 30 Days Qty: 60 0RF Cough Drops See Rx Instructions .ROUTE .COMPLEX Rx Instructions: may keep at bedside prn Systane (propylene glycol) 0.4-0.3 % Drops 1 drp ophthalmic (eye) TID Rx Instructions: both eyes fluoxetine 10 mg capsule 10 mg PO DAILY@12 Rx Instructions: with 20mg cap dextromethorphan-guaifenesin [Tussin DM Cough and Chest] 5-100 mg/5 mL liquid 10 ml PO BID PRN (Reason: Cough) phenytoin [Dilantin Infatabs] 50 mg tablet,chewable 50 mg PO TID@08,14,20 Discharge Orders: Discharge ED (Routine); Ordered 04/13/24 Ordered By: Niranjan Ward Referrals: Marilyn Trivedi APN [Primary Care Provider] - 1 week Patient Instructions: Epilepsy (ED) Activity Restrictions/Additional Instructions: Thank you for choosing [facility] for your healthcare needs today. Please realize that you were seen in the emergency department and that we are providing you with an emergency medical screening exam and this may not be a complete and all exclusive of all testing and/or medical workup we may need to determine your element or severity of your illness. It is very important that you follow-up as instructed with your primary care provider or specialist for the additional evaluation and to discuss your medical treatment plan. You may return to the emergency department should you have concerns or if your condition changes or worsens in any way. Coding Level of Care Code ED Tiler'S Assistant for Ady Vidal
[2024-04-13 21:07] VITALS: BP 158/86; PULSE 97; RESP 17; O2SAT 91
--- NOTE | 2024-04-13 21:10 | XRR_ITS ---
PROCEDURE INFORMATION: Exam: XR Chest Exam date and time: 04/13/2024 9:19 PM Age: 68 years old Clinical indication: Other: Seizure; Prior surgery; Surgery date: 6+ months; Surgery type: Nerve stimulator TECHNIQUE: Imaging protocol: Radiologic exam of the chest. Views: 1 view. COMPARISON: CR (CHEST, ) 04/06/2024 7:57 PM FINDINGS: Tubes, catheters and devices: Left-sided vagal stimulator. Lungs: See Heart/Mediastinum finding. Pleural spaces: Unremarkable. No pleural effusion. No pneumothorax. Heart/Mediastinum: Cardiomegaly and pulmonary vascular congestion. Bones/joints: Unremarkable. XR/XR chest 1V portable [id number] IMPRESSION: 1. Cardiomegaly and pulmonary vascular congestion. 2. Left-sided vagal stimulator.
--- NOTE | 2024-04-13 21:10 | ECG_ITS ---
[facility]24[facility]13 Pat Name: Dasia Brian Department: Room: Gender: Female Product Architect: : [id number] Requested By: Niranjan Ward Order Number: [id number] Reading MD: ZACH SOLIS Measurements Intervals Lambert Rate: 92 P: 10 SC: 179 QRS: 75 QRSD: 69 T: 66 QT: 341 QTc: 424 Interpretive Statements SINUS RHYTHM POSSIBLE LEFT ATRIAL ENLARGEMENT [-0.1mV P-WAVE IN V1/V2] LOW QRS VOLTAGE IN PRECORDIAL LEADS [QRS DEFLECTION < 1.0 mV IN CHEST LEADS] MODERATE ST DEPRESSION [0.05+ mV ST DEPRESSION] Compared to ECG 04/06/2024 19:42:43 Low QRS voltage now present ST (T wave) deviation now present Sinus tachycardia no longer present Electronically Signed On 04-15-2024 17:35:15 DIVER ASSISTANT by ZACH SOLIS [email or web address]
[2024-04-13 21:19] LABS: Basophils % 0.5 %; Eosinophils # 0.3 10^3/uL (0.0-0.8); Eosinophils % 3.4 %; Lymphocytes # 2.3 10^3/uL (0.8-4.8); Lymphocytes % 25.5 %; Mean Corpuscular HGB Conc 33.1 g/dL (30-55); Mean Corpuscular Hemoglobin 34.6 pg (27-33); Mean Corpuscular Volume 104.5 fl (85-98); Mean Platelet Volume 9.6 fL (7.4-10.4); Monocytes # 0.6 10^3/uL (0.2-0.9); Monocytes % 6.5 %; Neutrophils # 5.61 10^3/uL (1.8-7.7); Neutrophils % 63.6 %; Nucleated Red Blood Cells % 0 %; Platelet Count 254 10^3/cmm (157-399); Red Blood Count 3.35 10^6/uL (3.85-5.65); Red Cell Distribution Width 12.3 % (12.1-15.1); White Blood Count 8.81 10^3/uL (3.29-11.43)
[2024-04-13 21:29] LABS: Alanine Aminotransferase 21 U/L (0-33); Albumin Level 3.7 g/dL (3.5-5.2); Alkaline Phosphatase 114 U/L (35-105); Anion Gap 13.1 (5-19); Aspartate Amino Transferase 21 U/L (0-32); Blood Urea Nitrogen 16 mg/dL (8-23); Calcium 7.8 mg/dL (8.5-10.5); Carbon Dioxide 25 mmol/L (22-29); Chloride 102 mmol/L (98-107); Globulin 2.8 g/dL (1.3-4.6); Glomerular Filtration Rate 71.1 mL/min (90-130); Glucose 180 mg/dL (65-115); Osmolality Calculated 288 mOsm/kg (285-295); Potassium 4.1 mmol/L (3.5-5.1); Sodium 136 mmol/L (136-145); Total Bilirubin 0.3 mg/dL (0.15-1.2); Total Protein 6.5 g/dL (6.6-8.7)
[2024-04-14 01:08] VITALS: BP 139/90; PULSE 89; O2SAT 92
== END 2024-04-13 22:55 | disposition home or self-care (01) ==
PROVIDERS: Emergency Provider Emergency Medicine; PCP Nurse Practitioner Family
DX: G40.909 Epilepsy, unspecified, not intractable, without status epilepticus (principal)
CPT/HCPCS: 36415; 71045; 80053; 85025; 93005; 99285

== ENCOUNTER 2024-05-12 10:51 | Emergency (ER) | payer MEDICARE, MEDICAID, SELFPAY ==
--- NOTE | 2024-05-12 10:53 | XR_ITS ---
WS: [id number] Left foot, 3 views, 05/12/2024 Clinical Data: injury Comparison: Left foot, 11/22/2015 Findings: No new fractures or dislocations are seen. There is an old healed fracture of the midshaft of the lef t third metatarsal and a possible old fracture of the left fifth metatarsal. No bone destruction is noted. There is minimal erosion of the medial aspects of the heads of the third and fourth metatarsal s. There is flexion deformity of the left second through fifth toes along with demineralization of th e bones of the left foot. The joint spaces and soft tissues are normal. XR/XR foot LT min 3V* [id number] Impression: 1. Negative for new fractures. 2. Old fractures of the left third and fifth metatarsals. 3. Demineralization of the bones of the foot.
[2024-05-12 11:14] VITALS: BP 128/75; PULSE 83; RESP 20; TEMP 36.9; O2SAT 92; BMI 25.4
--- NOTE | 2024-05-12 11:17 | XR_ITS ---
WS: [id number] Left ankle, 3 views, 05/12/2024 Clinical Data: injury Comparison: Left ankle, 05/09/2020 Findings: No fractures or dislocations are seen. The ankle mortise is normal. The talus and calcaneus are unrem arkable. No soft tissue swelling over the medial or lateral malleolus is seen. XR/XR ankle LT min 3V* [id number] Impression: Negative left ankle.
--- NOTE | 2024-05-12 11:19 | ED_ITS ---
HPI - Extremity Problem General: Chief complaint: Extremity Injury, Lower Stated complaint: lt foot injury Time Seen by Provider: 05/12/24 10:57 Source: patient Mode of arrival: ambulatory Limitations: no limitations History of Present Illness: 68-year-old female who states that she w as hitting her foot on the ground and caregiver believes she had struck it too hard this happened a few days ago she does have bruising to her left foot has been complaining of pain in the left foot and ankle. Denies any other injuries at this time rates pain a 3 out of 10 Associated symptoms: Deny chest pain, fever(s) or rash Related Data Home Medications Medication Instructions Recorded Confirmed acetaminophen 325 mg capsule 650 mg PO Q6H PRN Pain or elevated 11/25/19 03/30/24 (Tylenol) temp fluticasone propionate 50 1 spray intranasal DAILY@11/25/19 03/30/24 mcg/actuation nasal spray,suspension (Flonase Allergy Relief) folic acid 1 mg tablet 1 mg PO DAILY@11/25/19 03/30/24 montelukast 10 mg tablet 10 mg PO DAILY@11/25/19 03/30/24 (Singulair) multivitamin 1 tab PO DAILY@11/25/19 03/30/24 pantoprazole 40 mg tablet,delayed 40 mg PO DAILY@11/25/19 03/30/24 release (Protonix) phenazopyridine 95 mg tablet (Azo 190 mg PO TID PRN Bladder Spasms 11/25/19 03/30/24 Urinary Pain Relief) polyethylene glycol 3350 17 17 gm PO DAILY@11/25/19 03/30/24 gram/dose oral powder (Miralax) simethicone 125 mg capsule (Gas-X 125 mg PO Q8H PRN Stomach Upset 11/25/19 03/30/24 Extra Strength) zonisamide 100 mg capsule 100 mg PO BID@11/25/19 03/30/24 (Zonegran) Lactobacillus acidophilus 1 tab PO DAILY@10/15/21 03/30/24 (Acidophilus chewable tablet) albuterol sulfate 90 mcg/actuation 2 puff inhalation QID PRN 10/15/21 03/30/24 aerosol inhaler Shortness Of Breath clotrimazole 1 % topical cream See Rx Instructions .Route .COMPLEX 10/15/21 03/30/24 diclofenac sodium 1 % topical gel 4 g topical QID PRN Pain 10/15/21 03/30/24 fluoxetine 20 mg tablet 20 mg PO DAILY@12 10/15/21 03/30/24 food supplemt, lactose-reduced 1 ea PO TID@09,13,19 10/15/21 03/30/24 (Nutritional Drink oral liquid) ondansetron HCl 4 mg tablet 4 mg PO Q4H PRN Nausea And Vomiting 03/09/22 03/30/24 famotidine 20 mg tablet 20 mg PO BID@08,20 06/01/22 03/30/24 nasal dilators (Breathe Right 06/01/22 03/30/24 strips) Cough Drops See Rx Instructions .Route .COMPLEX 06/07/22 03/30/24 dextromethorphan-guaifenesin 5 10 ml PO BID PRN Cough 06/07/22 03/30/24 mg-100 mg/5 mL oral liquid (Mimi DM Cough and Chest) fluoxetine 10 mg capsule 10 mg PO DAILY@12 06/07/22 03/30/24 peg 400-propylene glycol 0.4 %-0.3 1 drp ophthalmic (eye) TID 06/07/22 03/30/24 % eye drops (Systane (propylene glycol)) phenytoin 50 mg chewable tablet 50 mg PO TID@08,14,20 06/07/22 03/30/24 (Dilantin Infatabs) budesonide-formoterol HFA 80 2 puff inhalation BID 12/04/23 03/30/24 mcg-4.5 mcg/actuation aerosol inhaler buspirone 10 mg tablet 10 mg PO TID 12/04/23 03/30/24 clonazepam 0.25 mg disintegrating 0.25 mg PO BID 12/04/23 03/30/24 tablet lacosamide 150 mg tablet (Vimpat) 150 mg PO BID 12/04/23 03/30/24 loperamide 2 mg tablet 2 mg PO QID PRN Diarrhea 12/04/23 03/30/24 (Anti-Diarrheal (loperamide)) prednisone 5 mg tablet 5 mg PO QAM 12/04/23 03/30/24 sucralfate 100 mg/mL oral 10 ml PO BID 12/04/23 03/30/24 suspension tramadol 50 mg tablet 50 mg PO Q4H pain 03/04/24 03/30/24 Previous Rx's Medication Instructions Recorded levetiracetam 500 mg tablet 1,000 mg (2 x 500 mg) PO BID 30 06/06/22 days #60 tabs albuterol sulfate 5 mg/mL(0.5 %) 5 mg inhalation TID PRN shortness 03/04/24 solution for nebulization of breath or wheezing #600 mL nebulizer accessories ([place] #1 ea 03/04/24 Choice Nebulizer Kit-Adult) diazepam 5 mg-7.5 mg-10 mg rectal 10 mg NV Q4H PRN seizure activity 04/13/24 kit 2 doses #1 ea Allergies Allergy/AdvReac Type Severity Reaction Status Date / Time aspirin Allergy Unknown Verified 04/13/24 21:07 Influenza Virus Vaccines Allergy Unknown Verified 04/13/24 21:07 levofloxacin [From Levaquin] Allergy ALGY-Hives Verified 04/13/24 21:07 vancomycin Allergy ALGY-Hives Verified 04/13/24 21:07 Review of Systems Const: Denies: fever(s), chills, body aches or change in appetite ENMT: Denies: throat pain or dental pain Card: Denies: chest pain Resp: Denies: dyspnea GI: Denies: abdominal pain, nausea, vomiting or diarrhea Musc: Reports: extremity pain; Denies: neck pain or back pain Skin/Breast: Denies: rash Neuro: Denies: headache(s) PFSH ED PFSH: Medical History Acquired intellectual disability Dehydration Altered mental status Rheumatoid arthritis Seizures Brain injury Urinary retention Encephalopathy chronic Generalized epilepsy Epilepsy Surgical History History of craniotomy Family History Other No pertinent family history Social History Smoking and tobacco/nicotine status: never used tobacco/nicotine Physical Exam Const: COMMON NORMALS: no acute distress, patient oriented x3 and healthy appearing HENMT: COMMON NORMALS: normocephalic and atraumatic HEAD & SCALP: normocephalic and atraumatic Eye: COMMON NORMALS: conjunctivae normal CONJUNCTIVA: Yes conjunctivae normal Neck/C-Spine: COMMON NORMALS: full ROM and supple Chest: COMMONS NORMALS: normal inspection of the chest Resp: COMMON NORMALS: normal respiratory effort Cardio: COMMON NORMALS: regular rate RATE: regular rate Extremity: NARRATIVE EXTREMITY EXAM: Tenderness noted to left foot with bruising Neuro: COMMON NORMALS: patient oriented x3 and no focal motor deficits Psych: COMMON NORMALS: mental status grossly normal, Normal thought process present and cooperative THOUGHT PROCESS: Normal thought process present Skin: COMMON NORMALS: no rashes or lesions noted and no wounds GENERAL SKIN EXAM: no rashes or lesions noted Course Vital Signs: Vital signs: Vital Signs Temperature 98.4 F 05/12/24 11:14 Pulse Rate 83 05/12/24 11:14 Respiratory Rate 20 H 05/12/24 11:14 Blood Pressure 128/75 05/12/24 11:14 Pulse Oximetry 92 05/12/24 11:14 Oxygen Delivery Me thod Room Air 05/12/24 11:14 MDM - Extremity (Nontraumatic) Medical Decision Making Patient presents here with left foot pain does have a contusion noted to left foot imaging here shows no fracture she is stable for discharge follow-up with PCP return if worsening she understands agrees to plan Medical Records I reviewed the patient's medical records. Lab Data Radiology Impressions Foot X-Ray 05/12/24 10:53 Impression: 1. Negative for new fractures. 2. Old fractures of the left third and fifth metatarsals. 3. Demineralization of the bones of the foot. No radiology studies performed this visit Discharge Plan Discharge Patient Disposition: Home Clinical Impression: Contusion of foot, left Condition: Stable Prescriptions: No Action folic acid 1 mg tablet 1 mg PO DAILY@08 montelukast [Singulair] 10 mg tablet 10 mg PO DAILY@08 multivitamin Tablet 1 tab PO DAILY@08 polyethylene glycol 3350 [Miralax] 17 gram/dose powder 17 gm PO DAILY@08 Rx Instructions: with h2o or juice fluticasone propionate [Flonase Allergy Relief] 50 mcg/actuation spray,suspension 1 spray INTRANASAL DAILY@08 Rx Instructions: administer into each nostril pantoprazole [Protonix] 40 mg tablet,delayed release (DR/EC) 40 mg PO DAILY@08 zonisamide [Zonegran] 100 mg capsule 100 mg PO BID@, phenazopyridine [Azo Urinary Pain Relief] 95 mg tablet 190 mg PO TID PRN (Reason: Bladder Spasms) acetaminophen [Tylenol] 325 mg capsule 650 mg PO Q6H PRN (Reason: Pain or elevated temp) simethicone [Gas-X Extra Strength] 125 mg capsule 125 mg PO Q8H PRN (Reason: Stomach Upset) ondansetron HCl 4 mg Tablet 4 mg PO Q4H PRN (Reason: Nausea And Vomiting) sucralfate 100 mg/mL suspension 10 ml PO BID prednisone 5 mg tablet 5 mg PO QAM loperamide [Anti-Diarrheal (loperamide)] 2 mg tablet 2 mg PO QID PRN (Reason: Diarrhea) buspirone 10 mg tablet 10 mg PO TID clonazepam 0.25 mg tablet,disintegrating 0.25 mg PO BID budesonide-formoterol 80-4.5 mcg/actuation HFA aerosol inhaler 2 puff INHALATION BID lacosamide [Vimpat] 150 mg tablet 150 mg PO BID tramadol 50 mg Tablet 50 mg PO Q4H (DME) [place] Choice Neb Kit-Adult Misc See Rx Instructions .Route Qty: 1 0RF Rx Instructions: As directed albuterol sulfate 5 mg/mL solution for nebulization 5 mg inhalation TID PRN (Reason: shortness of breath or wheezing) Qty: 600 0RF fluoxetine 20 mg Tablet 20 mg PO DAILY@12 Rx Instructions: with 10mg caps Acidophilus Tablet,Chewable 1 tab PO DAILY@08 albuterol sulfate 90 mcg/actuation Hfa Aerosol Inhaler 2 puff INHALATION QID PRN (Reason: Shortness Of Breath) clotrimazole 1 % Cream See Rx Instructions .ROUTE .COMPLEX Rx Instructions: Apply to rash twice daily until clear then use as needed. Nutritional Drink Liquid 1 ea PO TID@,, diclofenac sodium 1 % Gel 4 g TOPICAL QID PRN (Reason: Pain) Rx Instructions: apply to single knee, ankle, foot; for foot includes sole/toes/top of foot famotidine 20 mg tablet 20 mg PO BID@,20 (DME) Breathe Right Strip TOPICAL Rx Instructions: prn levetiracetam 500 mg tablet 1,000 mg PO BID 30 Days Qty: 60 0RF Cough Drops See Rx Instructions .ROUTE .COMPLEX Rx Instructions: may keep at bedside prn Systane (propylene glycol) 0.4-0.3 % Drops 1 drp ophthalmic (eye) TID Rx Instructions: both eyes fluoxetine 10 mg capsule 10 mg PO DAILY@12 Rx Instructions: with 20mg cap dextromethorphan-guaifenesin [Tussin DM Cough and Chest] 5-100 mg/5 mL liquid 10 ml PO BID PRN (Reason: Cough) phenytoin [Dilantin Infatabs] 50 mg tablet,chewable 50 mg PO TID@08,14,20 diazepam 5-7.5-10 mg kit 10 mg NV Q4H PRN (Reason: seizure activity) Qty: 1 0RF Discharge Orders: Discharge ED (Routine); Ordered 05/12/24 Ordered By: Ruby Arroyo Referrals: Marilyn Trivedi APN [Primary Care Provider] - 4-7 days Discharge Diet: Advance as tolerated Discharge Activity: Resume usual activity Patient Instructions: Foot Contusion (ED) Coding Level of Care Code 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
[2024-05-12 11:32] VITALS: BP 128/75; PULSE 83; RESP 20; TEMP 36.9; O2SAT 92
[2024-05-12 11:43] VITALS: PULSE 84; O2SAT 90
== END 2024-05-12 11:44 | disposition home or self-care (01) ==
PROVIDERS: Emergency Provider Emergency Medicine; PCP Nurse Practitioner Family
DX: S90.32XA Contusion of left foot, initial encounter (principal); X58.XXXA Exposure to other specified factors, initial encounter
CPT/HCPCS: 73610; 73630; 99283

== ENCOUNTER → 2024-07-06 14:49 | Outpatient (BNVA) | payer MEDICARE, MEDICAID, SELFPAY | PROVIDERS: PCP Nurse Practitioner Family; Visit Provider Internal Medicine Cardiovascular Disease | DX: R79.89 Other specified abnormal findings of blood chemistry (principal); R56.9 Unspecified convulsions; M06.9 Rheumatoid arthritis, unspecified; J44.9 Chronic obstructive pulmonary disease, unspecified | CPT/HCPCS: 99214 ==

== ENCOUNTER 2024-07-08 13:56 | Inpatient (IN) | payer MEDICARE, MEDICAID, SELFPAY ==
[2024-07-08] VITALS (8 sets, daily range): BP systolic 105–132; BP diastolic 66–81; PULSE 75–84; RESP 15–20; TEMP 36.4–36.9; O2SAT 91–94; BMI 13.6
--- NOTE | 2024-07-08 14:05 | XR_ITS ---
WS: [id number] XR chest 1V portable [id number] REASON FOR EXAM: cough, sob, hypoxica, hx of aspiration PNA FINDINGS: The chest is unchanged compared to 04/13/2024. Base of cervical spine stimulator battery pack over the left chest. Moderate tortuosity of the thoracic aorta. Mild cardiomegaly. Bilateral calcified granulomatous disease. Coarse reticular interstitial lung opacities. Areas of peribronchial thickening and bronchiectasis most notably in the left lower lung. No definite acute pulmonary parenchymal or pleural abnormality is identified. Dextroscoliosis and moderate degenerative spondylosis of the thoracic spine. XR/XR chest 1V portable [id number] IMPRESSION: Stable abnormal chest without acute abnormality identified.
--- NOTE | 2024-07-08 14:08 | ED_ITS ---
HPI - Altered Mental Status 2 General: Chief Complaint: Altered Mental Status Stated Complaint: Flu Time Seen by Provider: 07/08/24 13:58 Source: EMS and other (pen or pencil assembly machine operator) Mode of arrival: EMS Limitations: altered mental status History of Present Illness: Patient is a 68-year-old female with past medical history of traumatic brain injury with subsequent craniotomy, seizures, epilepsy, and acquired intellectual disability who is brought in by ambulance for respiratory distress and altered mental status over the past couple of days. EMS states that they found the patient in respiratory distress, she was on 3 L of O2 and could not maintain saturation above 90%, so was given DuoNeb treatment and placed on 4 L, has been over 90% since. Arrives with 22-gauge in the left hand, pen or pencil assembly machine operator arrives and states patient has been seemingly ill for the past few days. She has substantial history of seizures and pen or pencil assembly machine operator states she had a 15-minute seizure yesterday. She notes that patient also has a history of aspiration pneumonia, no history of asthma or COPD. Initially she was not responsive to painful stimuli, however EMS states that when moving the patient from group home bed to EMS bed that she was much more responsive. Here in the ED she is responsive to verbal stimuli. She is currently on 3 L, 92% SpO2 and rest of her vitals within normal limits. Waxed Bag Machine Operator has noted a productive cough, previously mentioned shortness of breath and altered mental status, and overall lethargic. No known sick contact exposure, patient has not been swabbed for flu or COVID. Review of systems is not obtainable secondary to the patient's altered mental status. MD complaint: altered mental status, decreased responsiveness and other (Shortness of breath) Onset (ago): day(s) Timing confirmed by: caregiver Severity: moderate Consistency of symptoms: Constant Context: other (Coinciding with shortness of breath and respiratory distress) Treatments prior to arrival: oxygen Related Data Home Medications ?Medication ?Instructions ?Recorded ?Confirmed fluticasone propionate 50 1 spray intranasal DAILY@11/25/19 07/08/24 mcg/actuation nasal spray,suspension (Flonase Allergy Relief) folic acid 1 mg tablet 1 mg PO DAILY@11/25/19 montelukast 10 mg tablet 10 mg PO DAILY@11/25/19 0 07/08/24 (Singulair) multivitamin 1 tab PO DAILY@11/25/19 0 07/08/24 pantoprazole 40 mg tablet,delayed 40 mg PO DAILY@07/08/24 release (Protonix) phenazopyridine 95 mg tablet (Azo 190 mg PO BID PRN Bl adder Spasms 11/25/19 07/08/24 Urinary Pain Relief) polyethylene glycol 3350 17 17 gm PO .QOD@8AM 11/25/19 07/08/24 gram/dose oral powder (Miralax) simethicone 125 mg capsule (Gas-X 125 mg PO Q8H PRN St omach Upset 11/25/19 07/08/24 Extra Strength) zonisamide 100 mg capsule 100 mg PO BID@11/25/19 07/08/24 (Zonegran) Lactobacillus acidophilus 1 tab PO DAILY@10/15/21 0 07/08/24 (Acidophilus chewable tablet) albuterol sulfate 90 mcg/actuation 2 puff inhalation Q ID PRN 10/15/21 07/08/24 aerosol inhaler Shortness Of Breath clotrimazole 1 % topical cream See Rx Instructions .[place] .COMPLEX 10/15/21 07/08/24 diclofenac sodium 1 % topical gel 4 g topical QID PRN Pain/arthritis 10/15/21 07/08/24 fluoxetine 20 mg tablet 20 mg PO DAILY@10/15/21 0 07/08/24 food supplemt, lactose-reduced 1 ea PO TID@09,13,19 07/08/24 (Nutritional Drink oral liquid) ondansetron HCl 4 mg tablet 4 mg PO Q4H PRN Nausea And Vomiting 03/09/22 07/08/24 famotidine 20 mg tablet 20 mg PO BID 06/01/22 nasal dilators (Breathe Right 06/01/22 07/08/24 strips) dextromethorphan-guaifenesin 5 10 ml PO BID PRN Cough 06/07/22 07/08/24 mg-100 mg/5 mL oral liquid (Tussin DM Cough and Chest) fluoxetine 10 mg capsule 10 mg PO DAILY@12 06/07/22 0 07/08/24 peg 400-propylene glycol 0.4 %-0.3 1 drp ophthalmic (e ye) TID 06/07/22 07/08/24 % eye drops (Systane (propylene glycol)) phenytoin 50 mg chewable tablet 50 mg PO TID@08,14,20 06/07/22 07/08/24 (Dilantin Infatabs) budesonide-formoterol HFA 80 2 puff inhalation BID 03/1907/08/24 mcg-4.5 mcg/actuation aerosol inhaler buspirone 10 mg tablet 10 mg PO TID 12/04/23 clonazepam 0.25 mg disintegrating 0.25 mg PO BID 12/0307/08/24 tablet lacosamide 150 mg tablet (Vimpat) 150 mg PO BID 07/08/24 loperamide 2 mg tablet 2 mg PO QID PRN Diarrhea 03/1907/08/24 (Anti-Diarrheal (loperamide)) prednisone 5 mg tablet 5 mg PO QAM 12/04/23 5 sucralfate 100 mg/mL oral 10 ml PO BID 12/04/23 suspension tamsulosin 0.4 mg capsule (Flomax) 0.4 mg PO BID 07/0607/08/24 acetaminophen 325 mg tablet 650 mg PO Q6H PRN pain or elevated 07/08/24 07/08/24 temp cyanocobalamin (vitamin B-12) 1,000 mcg IM Q30D 07/08/24 1,000 mcg/mL injection solution levetiracetam 500 mg tablet 2,000 mg PO BID 07/08/24 0 07/08/24 menthol 2.7 mg lozenges (Cough 5.4 mg mucous membrane Q2H PRN 07/08/24 07/08/24 Drops) Cough promethazine-DM 6.25 mg-15 mg/5 mL 5 ml PO Q4H PRN [place] cough 07/08/24 07/08/24 oral syrup triamcinolone acetonide 0.1 % 1 applic topical BID PRN rash or 07/08/24 07/08/24 topical cream itching vitamin B complex 1 tab PO .DAILY@12PM 5 07/08/24 Previous Rx's ?Medication ?Instructions ?Recorded albuterol sulfate 5 mg/mL(0.5 %) 5 mg inhalation TID P RN shortness 03/04/24 solution for nebulization of breath or wheezing #600 m L nebulizer accessories ([place] #1 ea 03/04/24 Choice Nebulizer Kit-Adult) diazepam 5 mg-7.5 mg-10 [address] Q4H PRN sofie escamilla activity 04/13/24 kit 2 doses #1 ea Allergies Allergy/AdvReac Type Severity Reaction Status Date / Time aspirin Allergy Unknown Verified 07/06/24 15:05 Influenza Virus Vaccines Allergy Unknown Verified 07/06/24 15:05 levofloxacin (From Levaquin) Allergy ALGY-Hives Verified 07/06/24 15:05 vancomycin Allergy ALGY-Hives Verified 07/06/24 15:05 Review of Systems 2 General: Reports: ROS unobtainable due to mental status PFSH ED 2 PFSH: Medical History Acquired intellectual disability Dehydration Altered mental status Rheumatoid arthritis Seizures Brain injury Urinary retention Encephalopathy chronic Generalized epilepsy Epilepsy Surgical History History of craniotomy Family History Other No pertinent family history Social History Smoking and tobacco/nicotine status: former use of tobacco/nicotine Physical Exam 2 Const: GENERAL APPEARANCE: lethargic ORIENTATION/CONSCIOUSNESS: Yes lethargic OTHER: Respiratory distress noted, lethargic. Responsive to verbal stimuli, though sluggish. Pallor HENMT: COMMON NORMALS: normocephalic and atraumatic HEAD & SCALP: n ormocephalic and atraumatic OTHER: Dry cracked oral mucosa, yellow residue on patient's tongue could resemble yeast infection Eye: COMMON NORMALS: Equal, round and reactive pupils present, EOMs intact bilaterally and conjunctivae normal CONJUNCTIVA: Yes conjunctivae normal P UPIL: Yes Equal, round and reactive pupils present Neck/C-Spine: COMMON NORMALS: full ROM, no meningeal signs and no JVD Resp: EFFORT & INSPECTION: Yes symmetric chest movement, Yes tachypneic (Mild), Yes respiratory distress and Yes Actively coughing productive, moist and strong AUSCULTATION: rhonchi upper bilaterally and diminished lung sounds bilateral in the lower lung virk OTHER: Mouth breathing, using abdominal muscles Cardio: COMMON NORMALS: no JVD, regular rate, regular rhythm, S1 normal heart sound present, S2 normal heart sound present, No gallops present (Cardio), No murmurs present (Cardio) and No rub (Cardio) RATE: regular rate RHYTHM: r egular rhythm HEART SOUNDS: S1 normal heart sound present and S2 normal heart sound present GI: COMMON NORMALS: Normal to inspection, nondistended, normoactive bowel sounds present, Soft to palpation and non-tender PALPATION: Yes Soft to palpation Extremity: COMMON NORMALS: normal to inspection, full ROM, no clubbing, cyanosis or edema and no pedal edema Neuro: COMMON NORMALS: moves all extremities and no focal motor deficits S ENSORIUM/ORIENTATION: Yes lethargic MENINGEAL SIGNS: Yes no meningeal signs Skin: COMMON NORMALS: no rashes or lesions noted GENERAL SKIN EXAM: no rashes or lesions noted Course 2 Vital Signs: Vital signs: Vital Signs Temperature 98.4 F 07/08/24 14:00 Pulse Rate 80 07/08/24 16:59 Respiratory Rate 20 H 07/08/24 15:31 Blood Pressure 105/66 07/08/24 16:59 Pulse Oximetry 94 07/08/24 16:59 Oxygen Delivery Me thod Nasal Cannula 07/08/24 15:31 Oxygen Flow Rate 3 07/08/24 15:31 MDM - Altered Mental Status Medical Decision Making Patient presented by ambulance for altered mental status and respiratory distress. Not normally on oxygen at her group home, caregiver states she has been on 3 to 4 L over the past few days. She does arrive on 3 L, barely maintaining above 90 SpO2. Chest x-ray showing no significant change from last fall, there could be an early aspiration component due to her chronic intellectual disability. Caregiver also noted a recent 15-minute seizure, patient has not had any fevers here. Initially patient was difficult to respond with painful stimuli, has seemed to be more responsive throughout ED stay. She was positive for RSV, her lab work was all unremarkable including unremarkable ABG. However she has still had low SpO2 will admit for hospitalist services for monitoring, Dr. Bettencourt accepts. Dr. Ward putting in admit orders at this time. Caregiver agreeing with plan. Lab Data 07/08/24 14:37 07/08/24 14:37 Radiology Impressions Chest X-Ray 07/08/24 14:05 IMPRESSION: Stable abnormal chest without acute abnormality identified. Laboratory Results WBC 6.85 10^3/uL (3.29-11.43) 07/08/24 14:37 RBC 2.98 10^6/uL (3.85-5.65) L 07/08/24 14:37 Hgb 10.20 g/dL (11.27-16.99) L 07/08/24 14:37 Hct 34.2 % (36-47) L 07/08/24 14:37 MCV 114.8 fl (85-98) H 07/08/24 14:37 MCH 34.2 pg (27-33) H 07/08/24 14:37 MCHC 29.8 g/dL (30-55) L 07/08/24 14:37 RDW 13.9 % (12.1-15.1) 07/08/24 14:37 Plt Count 209 10^3/cmm (157-399) 07/08/24 14:37 MPV 9.3 fL (7.4-10.4) 07/08/24 14:37 Neut % (Auto) 65.2 % 07/08/24 14:37 Lymph % (Auto) 19.6 % 07/08/24 14:37 [place] % (Auto) 9.2 % 07/08/24 14:37 Eos % (Auto) 5.5 % 07/08/24 14:37 Baso % (Auto) 0.4 % 07/08/24 14:37 Neut # (Auto) 4.46 10^3/uL (1.8-7.7) 07/08/24 14:37 Lymph # (Auto) 1.3 10^3/uL (0.8-4.8) 07/08/24 14:37 [place] # (Auto) 0.6 10^3/uL (0.2-0.9) 07/08/24 14:37 Eos # (Auto) 0.4 10^3/uL (0.0-0.8) 07/08/24 14:37 Baso # (Auto) 0.0 10^3/uL (0.0-0.1) 07/08/24 14:37 Nucleated RBC % (auto) 0 % 07/08/24 14:37 Nucleated RBCs # 0.0 /100WBC 07/08/24 14:37 Specimen Type Arterial 07/08/24 14:14 Sample Site Radial, left 07/08/24 14:14 ABG pH 7.37 (7.35-7.45) 07/08/24 14:14 ABG pCO2 48.5 mmHg (35-45) H 07/08/24 14:14 ABG pO2 97.1 mmHg (80.0-100.0) 07/08/24 14:14 ABG PO2/FiO2 Ratio 303 07/08/24 14:14 ABG HCO3 27.7 mmol/L (22-26) H 07/08/24 14:14 ABG O2 Saturation 95.9 07/08/24 14:14 ABG Base Excess 1.8 mmol/L (-2.0-2.0) 07/08/24 14:14 Gustavo Test Pos 07/08/24 14:14 A-a O2 Gradient 8.9 mmHg (5-10) 07/08/24 14:14 Hematocrit 32.7 % (37-47) L 07/08/24 14:14 Hgb O2 Saturation 91.3 % (95-100) L 07/08/24 14:14 Carboxyhemoglobin 1.0 %THgb (0.4-20.1) 07/08/24 14:14 Methemoglobin 3.7 % (0.4-1.5) H 07/08/24 14:14 Total Hemoglobin 10.7 g/dL (12-16) L 07/08/24 14:14 Sodium 144.0 mmol/L (131-143) H 07/08/24 14:14 Potassium 3.8 mmol/L (3.5-5.0) 07/08/24 14:14 Glucose 139.0 mg/dL (70-115) H 07/08/24 14:14 Ionized Calcium 1.2 mmol/L (1.1-1.4) 07/08/24 14:14 O2 Delivery Device Nc 07/08/24 14:14 O2 Liters/Min 3.0 % 07/08/24 14:14 FiO2 32.0 % 07/08/24 14:14 Range Examiner ID [place] 07/08/24 14:14 Sodium 142 mmol/L (136-145) 07/08/24 14:37 Potassium 4.1 mmol/L (3.5-5.1) 07/08/24 14:37 Chloride 107 mmol/L (98-107) 07/08/24 14:37 Carbon Dioxide 26 mmol/L (22-29) 07/08/24 14:37 Anion Gap 13.1 (5-19) 07/08/24 14:37 BUN 17 mg/dL (8-23) 07/08/24 14:37 Creatinine 0.7 mg/dL (0.5-0.9) 07/08/24 14:37 GFR Calculation 83.0 mL/min (90-130) L 07/08/24 14:37 Glucose 135 mg/dL (65-115) H 07/08/24 14:37 Calculated Osmolality 298 mOsm/kg (285-295) H 07/08/24 14:37 Lactic Acid 0.8 mmol/L (0.5-2.2) 07/08/24 14:37 Calcium 8.6 mg/dL (8.5-10.5) 07/08/24 14:37 Total Bilirubin 0.4 mg/dL (0.15-1.2) 07/08/24 14:37 AST 25 U/L (0-32) 07/08/24 14:37 ALT 19 U/L (0-33) 07/08/24 14:37 Alkaline Phosphatase 150 U/L (35-105) H 07/08/24 14:37 Creatine Kinase 41 U/L (26-192) 07/08/24 14:37 NT-Pro-B Natriuret Pep 329 pg/mL (0-125) H 07/08/24 14:37 Total Protein 6.3 g/dL (6.6-8.7) L 07/08/24 14:37 Albumin 3.3 g/dL (3.5-5.2) L 07/08/24 14:37 Globulin 3.0 g/dL (1.3-4.6) 07/08/24 14:37 Urine Color Red (Yellow) A 07/08/24 16:14 Urine Appearance Clear (CLEAR) 07/08/24 16:14 Urine pH 5.0 (5-7) 07/08/24 16:14 Ur Specific [place] 1.027 (1.005-1.030) 07/08/24 16:14 Urine Protein 2+ (Negative) A 07/08/24 16:14 Urine Glucose (UA) Negative (Normal) 07/08/24 16:14 Urine Ketones Negative (Negative) 07/08/24 16:14 Urine Blood Negative (Negative) 07/08/24 16:14 Urine Nitrate Not Reportable 07/08/24 16:14 Urine Bilirubin 2+ (Negative) H 07/08/24 16:14 Urine Urobilinogen 1.0 mg/dL (Negative) 07/08/24 16:14 Ur Leukocyte Esterase 2+ (Negative) A 07/08/24 16:14 Urine RBC 6-10 /hpf (0-2) 07/08/24 16:14 Urine WBC 0-5 /hpf (0-5) 07/08/24 16:14 Ur Squamous Epith Cells 0-5 /hpf (0-5) 07/08/24 16:14 Amorphous Sediment Not Reportable 07/08/24 16:14 Urine Bacteria 4+ /hpf (NONE) H 07/08/24 16:14 Hyaline Casts 1.65 /lpf 07/08/24 16:14 Coronavirus (PCR) Negative (Negative) 07/08/24 14:52 Influenza A (PCR) Negative (Negative) 07/08/24 14:52 Influenza Type B (PCR) Negative (Negative) 07/08/24 14:52 RSV (PCR) Positive (Negative) A 07/08/24 14:52 All radiology interpretation(s) finalized by discharge EKG Data EKG 1: I personally reviewed and interpreted this EKG as follows: EKG interpretation date: 07/08/24 EKG interpretation time: 14:17 Prior EKG tracings: available for review Interpretation: Reviewed with physician. Normal sinus rhythm. Rate 81. Normal axis. Normal intervals. No acute STEMI. Compared with tracing from 04/13/2024. Discharge Plan Discharge Patient Disposition: Admitted As Inpatient Admit Provider: Mellissa Bettencourt Clinical Impression: Respiratory syncytial virus (RSV), Altered mental status, Hypoxia Condition: Stable Coding Level of Care Code ED Extension Agent for Chg Fwd
--- NOTE | 2024-07-08 14:16 | ECG_ITS ---
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 Measurements Intervals [place] Rate: 81 P: 10 TN: 160 QRS: 20 QRSD: 78 T: 39 QT: 382 QTc: 444 Interpretive Statements SINUS RHYTHM Compared to ECG 04/13/2024 22:19:43 ST (T wave) deviation no longer present Electronically Signed On 07-08-2024 18:00:16 COMPLAINT OPERATOR by Florida Rivera M.D. [email or web address]
[2024-07-08 14:27] LABS: ABG PCO2 48.5 mmHg (35-45); ABG PH Result 7.37 (7.35-7.45); Alveolar-Arterial Oxygen Gradi 8.9 mmHg (5-10); Arterial Blood Gas Hematocrit 32.7 % (37-47); Base Excess ABG 1.8 mmol/L (-2.0-2.0); Blood Gas Allen Test Pos; Blood Gas Operator Identificat MONRO; Blood Gas Sample Site Radial, left; Blood Gas Sample Type Arterial; HCO3 ABG 27.7 mmol/L (22-26); HGB O2 Sat 91.3 % (95-100); Ionized Calcium Level - ABG 1.2 mmol/L (1.1-1.4); Methemoglobin 3.7 % (0.4-1.5); Oxygen Device NC; Oxygen Saturation ABG 95.9; PO2 ABG 97.1 mmHg (80.0-100.0); PO2 FiO2 Ratio Arterial Blood 303; Potassium Level - ABG 3.8 mmol/L (3.5-5.0); Total Hemoglobin 10.7 g/dL (12-16)
[2024-07-08 14:55] LABS: Basophils % 0.4 %; Eosinophils # 0.4 10^3/uL (0.0-0.8); Eosinophils % 5.5 %; Hematocrit 34.2 % (36-47); Lymphocytes # 1.3 10^3/uL (0.8-4.8); Lymphocytes % 19.6 %; Mean Corpuscular HGB Conc 29.8 g/dL (30-55); Mean Corpuscular Hemoglobin 34.2 pg (27-33); Mean Corpuscular Volume 114.8 fl (85-98); Mean Platelet Volume 9.3 fL (7.4-10.4); Monocytes # 0.6 10^3/uL (0.2-0.9); Monocytes % 9.2 %; Neutrophils # 4.46 10^3/uL (1.8-7.7); Neutrophils % 65.2 %; Nucleated Red Blood Cells % 0 %; Platelet Count 209 10^3/cmm (157-399); Red Blood Count 2.98 10^6/uL (3.85-5.65); Red Cell Distribution Width 13.9 % (12.1-15.1); White Blood Count 6.85 10^3/uL (3.29-11.43)
[2024-07-08] MEDS: methylPREDNISolone sod succ 125 mg/2 mL INJ IVP (15:07)
[2024-07-08 15:18] LABS: Lactic Sepsis W/Reflex 0.8 mmol/L (0.5-2.2)
[2024-07-08] MEDS: ipratropium-albuterol 3 mL Neb INHALATION (15:28)
[2024-07-08 15:29] LABS: Alanine Aminotransferase 19 U/L (0-33); Albumin Level 3.3 g/dL (3.5-5.2); Alkaline Phosphatase 150 U/L (35-105); Anion Gap 13.1 (5-19); Aspartate Amino Transferase 25 U/L (0-32); Blood Urea Nitrogen 17 mg/dL (8-23); Calcium 8.6 mg/dL (8.5-10.5); Carbon Dioxide 26 mmol/L (22-29); Chloride 107 mmol/L (98-107); Creatine Phosphokinase 41 U/L (26-192); Creatinine Clr Calc Pharmacy 33.2669; Glucose 135 mg/dL (65-115); NT Pro B Type Natriuretic Pept 329 pg/mL (0-125); Osmolality Calculated 298 mOsm/kg (285-295); Potassium 4.1 mmol/L (3.5-5.1); Sodium 142 mmol/L (136-145); Total Bilirubin 0.4 mg/dL (0.15-1.2); Total Protein 6.3 g/dL (6.6-8.7)
[2024-07-08 15:39] LABS: Influenza A NEGATIVE (Negative); Influenza B NEGATIVE (Negative); SARS-CoV-2 PCR NEGATIVE (Negative)
[2024-07-08 15:46] LABS: Respiratory Syncytial Virus Ce POSITIVE (Negative)
[2024-07-08 16:33] LABS: Bilirubin Urine 2+ (Negative); Blood Urine Negative (Negative); Glucose Urine UA Negative (Normal); Ketones Urine Negative (Negative); Leukocyte Esterase Urine 2+ (Negative); Protein Urine 2+ (Negative); Specific Gravity, Urine 1.027 (1.005-1.030); Urine Appearance Clear (CLEAR)
--- NOTE | 2024-07-08 16:37 | PC.PHAR ---
Pt is from [facility]-[phone]-they will present a med list.
[2024-07-08 16:39] LABS: Add Urine Microscopic? YES; Bacteria Urine 4+ /hpf; Hyaline Casts Urine 1.65 /lpf; Squamous Epithelial Cell Urine 0-5 /hpf (0-5); WBC Urine 0-5 /hpf (0-5)
[2024-07-08 16:55] LABS: Urine Color Red (Yellow)
[2024-07-08 16:57] LABS: UA Slide Review UA Slide Review Perf
[2024-07-08 16:58] LABS: Add Urine Culture? Yes
--- NOTE | 2024-07-08 17:08 | PC.PHAR ---
Pt no longer taking Tramadol 50mg - Seizures? removed from list
--- NOTE | 2024-07-08 17:19 | PM.HP ---
Providers/Chief Complaint Admitting Physician: Mellissa Bettencourt MD Primary Care Provider: Marilyn Trivedi APN Chief Complaint: Flu History of Present Illness Dasia Brian is a 68 year old female Intellectual challenges s, resident of [facility], seizure disorder, at baseline able to stand with minimal assistance, eats small soft size bite food, able to communicate with simple conversation, recently had a seizure for 15 minutes few days ago, as per the caregiver she can go up to 45 minutes sometimes presenting with chief complaint of lethargy fatigue and shortness of breath. Patient was diagnosed with hypoxia by the EMS she was put on 3 L nasal cannula, at baseline she requires 2 L of oxygen only at nighttime as per the caregiver. In the ER he has been diagnosed with RSV. Patient is somnolent I have requested BiPAP she has mild hypercapnia with compensated pH. Review of Systems General: Reports: ROS unobtainable due to medical condition Medications/Allergies Home Medications ?Medication ?Instructions ?Recorded ?Confirmed ?Last Taken ?Type fluticasone propionate 50 1 spray intranasal DAILY@11/25/19 07/08/24 07/08/24 History mcg/actuation nasal spray,suspension (Flonase Allergy Relief) folic acid 1 mg tablet 1 mg PO DAILY@11/25/19 07/08/24 07/08/24 History montelukast 10 mg tablet 10 mg PO DAILY@11/25/19 07/08/24 07/08/24 History (Singulair) multivitamin 1 tab PO DAILY@11/25/19 07/08/24 07/08/24 History pantoprazole 40 mg tablet,delayed 40 mg PO DAILY@11/25/19 07/08/24 07/08/24 History release (Protonix) phenazopyridine 95 mg tablet (Azo 190 mg PO BID PRN Bladder Spasms 11/25/19 07/08/24 07/08/24 History Urinary Pain Relief) polyethylene glycol 3350 17 17 gm PO .QOD@8AM 11/25/19 07/08/24 12/04/23 History gram/dose oral powder (Miralax) simethicone 125 mg capsule (Gas-X 125 mg PO Q8H PRN Stomach Upset 11/25/19 07/08/24 Unknown History Extra Strength) zonisamide 100 mg capsule 100 mg PO BID@08,11/25/19 07/08/24 07/08/24 History (Zonegran) Lactobacillus acidophilus 1 tab PO DAILY@08 10/15/21 07/08/24 07/08/24 History (Acidophilus chewable tablet) albuterol sulfate 90 mcg/actuation 2 puff inhalation QID PRN 10/15/21 07/08/24 03/08/22 History aerosol inhaler Shortness Of Breath clotrimazole 1 % topical cream See Rx Instructions .Route .COMPLEX 10/15/21 07/08/24 Unknown History diclofenac sodium 1 % topical gel 4 g topical QID PRN Pain/arthritis 10/15/21 07/08/24 Unknown History fluoxetine 20 mg tablet 20 mg PO DAILY@10/15/21 07/08/24 07/08/24 History food supplemt, lactose-reduced 1 ea PO TID@,,10/15/21 07/08/24 07/08/24 History (Nutritional Drink oral liquid) ondansetron HCl 4 mg tablet 4 mg PO Q4H PRN Nausea And Vomiting 03/09/22 07/08/24 Unknown History famotidine 20 mg tablet 20 mg PO BID 06/01/22 07/08/24 07/08/24 History nasal dilators (Breathe Right 06/01/22 07/08/24 Unknown History strips) dextromethorphan-guaifenesin 5 10 ml PO BID PRN Cough 06/07/22 07/08/24 Unknown History mg-100 mg/5 mL oral liquid (Tussin DM Cough and Chest) fluoxetine 10 mg capsule 10 mg PO DAILY@06/07/22 07/08/24 07/08/24 History peg 400-propylene glycol 0.4 %-0.3 1 drp ophthalmic (eye) TID 06/07/22 07/08/24 07/08/24 History % eye drops (Systane (propylene glycol)) phenytoin 50 mg chewable tablet 50 mg PO TID@08,14,06/07/22 07/08/24 07/08/24 History (Dilantin Infatabs) budesonide-formoterol HFA 80 2 puff inhalation BID 12/04/23 07/08/24 07/08/24 History mcg-4.5 mcg/actuation aerosol inhaler buspirone 10 mg tablet 10 mg PO TID 12/04/23 07/08/24 07/08/24 History clonazepam 0.25 mg disintegrating 0.25 mg PO BID 12/04/23 07/08/24 07/08/24 History tablet lacosamide 150 mg tablet (Vimpat) 150 mg PO BID 12/04/23 07/08/24 07/08/24 History loperamide 2 mg tablet 2 mg PO QID PRN Diarrhea 12/04/23 07/08/24 Unknown History (Anti-Diarrheal (loperamide)) prednisone 5 mg tablet 5 mg PO QAM 12/04/23 07/08/24 07/08/24 History sucralfate 100 mg/mL oral 10 ml PO BID 12/04/23 07/08/24 07/08/24 History suspension albuterol sulfate 5 mg/mL(0.5 %) 5 mg inhalation TID PRN shortness 03/04/24 07/08/24 Unknown Rx solution for nebulization of breath or wheezing #600 mL nebulizer accessories ([place] #1 ea 03/04/24 07/08/24 Unknown Rx Choice Nebulizer Kit-Adult) diazepam 5 mg-7.5 mg-10 mg rectal 10 mg [place] Q4H PRN seizure activity 04/13/24 07/08/24 Unknown Rx kit 2 doses #1 ea tamsulosin 0.4 mg capsule (Flomax) 0.4 mg PO BID 07/06/24 07/08/24 07/08/24 History acetaminophen 325 mg tablet 650 mg PO Q6H PRN pain or elevated 07/08/24 07/08/24 Unknown History temp cyanocobalamin (vitamin B-12) 1,000 mcg IM Q30D 07/08/24 07/08/24 Unknown History 1,000 mcg/mL injection solution levetiracetam 500 mg tablet 2,000 mg PO BID 07/08/24 07/08/24 07/08/24 History menthol 2.7 mg lozenges (Cough 5.4 mg mucous membrane Q2H PRN 07/08/24 07/08/24 Unknown History Drops) Cough promethazine-DM 6.25 mg-15 mg/5 mL 5 ml PO Q4H PRN evening cough 07/08/24 07/08/24 Unknown History oral syrup triamcinolone acetonide 0.1 % 1 applic topical BID PRN rash or 07/08/24 07/08/24 Unknown History topical cream itching vitamin B complex 1 tab PO .DAILY@12PM 07/08/24 07/08/24 07/08/24 History Allergies Allergy/AdvReac Type Severity Reaction Status Date / Time aspirin Allergy Unknown Verified 07/06/24 15:05 Influenza Virus Vaccines Allergy Unknown Verified 07/06/24 15:05 levofloxacin (From Levaquin) Allergy ALGY-Hives Verified 07/06/24 15:05 vancomycin Allergy ALGY-Hives Verified 07/06/24 15:05 PFSH Acute PFSH: Medical History Acquired intellectual disability Dehydration Altered mental status Rheumatoid arthritis Seizures Brain injury Urinary retention Encephalopathy chronic Generalized epilepsy Epilepsy Surgical History History of craniotomy Family History Other No pertinent family history Social History Smoking and tobacco/nicotine status: former use of tobacco/nicotine Vitals/I&O/Wt Last Vital Signs Temp 98.4 F 07/08/24 14:00 Pulse 80 07/08/24 16:59 Resp 20 H 07/08/24 15:31 BP 105/66 07/08/24 16:59 Pulse Ox 94 07/08/24 16:59 O2 Del Method Nasal Cannula 07/08/24 15:31 O2 Flow Rate 3 07/08/24 15:31 Weight last 48 hrs Weight 31.751 kg Physical Exam Narrative: Patient is somnolent Responsive to verbal and painful stimuli Caregiver at the bedside Patient looks dehydrated Contracture of extremities noted Abdomen soft No audible stridor or wheezing She does have torticollis Currently on 3 L No active chest pain Hemodynamic stable Data 07/08/24 14:37 07/08/24 14:37 Micro: Microbiology 07/08/24 14:44 Blood Culture - Preliminary Blood SPECIMEN COLLECTED 07/08/24 14:37 Blood Culture - Preliminary Blood SPECIMEN COLLECTED A&P Assessment and plan (1) Benign essential HTN: (2) Respiratory syncytial virus (RSV): Qualifiers: RSV infection type: pneumonia Qualified Code(s): J12.1 - Respiratory syncytial virus pneumonia (3) Rheumatoid arthritis: Qualifiers: Rheumatoid arthritis location: multiple sites Rheumatoid factor presence: unspecified presence Qualified Code(s): M06.9 - Rheumatoid arthritis, unspecified (4) Altered mental status: Qualifiers: Altered mental status type: unspecified Qualified Code(s): R41.82 - Altered mental status, unspecified (5) Seizure: (6) Pneumonia: (7) COPD (chronic obstructive pulmonary disease): Qualifiers: COPD type: unspecified COPD Qualified Code(s): J44.9 - Chronic obstructive pulmonary disease, unspecified (8) Hypoxia: Plan RSV related to acute hypoxia Currently patient on 3 L Mild hypercapnia noted Will keep patient on BiPAP overnight Patient is somnolent, Conservative management for RSV pneumonia Metabolic encephalopathy: Like related to UTI Will keep patient on ceftriaxone Request urine culture History of seizure: I will continue her antiepileptics, will use IV Keppra and once she is able to swallow medications we will start her p.o. antiepileptic medications Will keep patient on mechanical soft diet DVT prophylaxis added in the form of Lovenox Goals of care need to be verified echo try to call her family they are not picking up the phone, recent admission to the hospital states full code however previous admissions stated DNR/DNI, DNR/DNI status was endorsed by the caregiver who is at the bedside Please readdress in the morning PDMP PDMP Reviewed: Not Reviewed Attestations Medical Necessity Statement*: More than 2 midnights anticipated Diagnoses Benign essential HTN I10 Respiratory syncytial virus (RSV) J12.1 RSV infection type: pneumonia Rheumatoid arthritis involving multiple sites, unspecified whether rheumatoid factor present M06.9 Rheumatoid arthritis location: multiple sites Rheumatoid factor presence: unspecified presence Altered mental status R41.82 Altered mental status type: unspecified Seizure R56.9 Pneumonia J18.9 Chronic obstructive pulmonary disease, unspecified COPD type J44.9 COPD type: unspecified COPD Hypoxia R09.02
--- NOTE | 2024-07-08 19:38 | PC.NURSE ---
Addendum entered by Francie Oquendo RN 07/09/24 01:37: Caregiver stated that patient takes a medication that makes her urine dark, so her urine is always dark. Addendum entered by Francie Oquendo RN 07/08/24 20:21: Caregiver also states that patient was straight-cathed in ED to obtain urine sample. Addendum entered by Francie Oquendo RN 07/08/24 19:57: Caregiver at bedside notified that we do not carry the chewable Dilantin and that someone will need to bring this in for patient. Addendum entered by Francie Oquendo RN 07/08/24 19:53: She states patient has only has 16 ounces to drink today and that she has not voided since 5 am. Addendum entered by Francie Oquendo RN 07/08/24 19:45: Caregiver states she can eat regular foods, they just have to be cut up well, but states she has to have honey-thickened liquids. She states patient has become unresponsive like this in the past. She states if we ending up needing to give pills with pudding, that the patient hates chocolate and hates applesauce, to give them in vanilla pudding. She states patient wears 2 liters o2 PRN for 02 below 90 percent and at HS. She states patient is a 2 assist to transfer and that her right ankle is broken and she can only put weight on her left foot. Original Note: Patient from [facility]. Caregiver states someone stays with her 8 am - 8 pm.
[2024-07-08] MEDS: cefTRIAXone 1,000 mg SDV 1000 MG IVP (20:11)
[2024-07-08] MEDS: levETIRAcetam 1,000 MG/100 ML PREMIX 400 MG IV (20:11)
[2024-07-08] MEDS: enoxaparin 40 mg/0.4 mL Syringe SUBCUT (20:11)
[2024-07-09] VITALS (12 sets, daily range): BP systolic 92–119; BP diastolic 55–80; PULSE 76–87; RESP 10–23; TEMP 36.4–37.1; O2SAT 90–99
[2024-07-09 06:53] LABS: Blood Urea Nitrogen 19 mg/dL (8-23); C Reactive Protein 61.1 mg/L (0.0-4.9); Calcium 8.4 mg/dL (8.5-10.5); Carbon Dioxide 24 mmol/L (22-29); Chloride 107 mmol/L (98-107); Creatinine Clr Calc Pharmacy 51.1303; Glomerular Filtration Rate 122.3 mL/min (90-130); Glucose 87 mg/dL (65-115); Osmolality Calculated 296 mOsm/kg (285-295); Sodium 142 mmol/L (136-145)
[2024-07-09 07:09] LABS: Anion Gap 15.3 (5-19); Potassium 4.3 mmol/L (3.5-5.1)
[2024-07-09] MEDS: ipratropium-albuterol 3 mL Neb INHALATION (07:36)
[2024-07-09 07:45] LABS: Basophils % 0.4 %; Eosinophils # 0.2 10^3/uL (0.0-0.8); Eosinophils % 2.7 %; Hematocrit 32.8 % (36-47); Lymphocytes # 2.2 10^3/uL (0.8-4.8); Lymphocytes % 28.6 %; Mean Corpuscular HGB Conc 31.1 g/dL (30-55); Mean Corpuscular Hemoglobin 35.3 pg (27-33); Mean Corpuscular Volume 113.5 fl (85-98); Mean Platelet Volume 9.6 fL (7.4-10.4); Monocytes # 0.6 10^3/uL (0.2-0.9); Monocytes % 7.8 %; Neutrophils # 4.65 10^3/uL (1.8-7.7); Neutrophils % 60.2 %; Nucleated Red Blood Cells % 0 %; Platelet Count 215 10^3/cmm (157-399); Red Blood Count 2.89 10^6/uL (3.85-5.65); Red Cell Distribution Width 13.8 % (12.1-15.1); White Blood Count 7.72 10^3/uL (3.29-11.43)
[2024-07-09] MEDS: PHENYTOIN 50 MG 50 EACH PO ×3 (08:00→20:38)
[2024-07-09] MEDS: famotidine 20 mg Tablet PO ×2 (09:18→17:52)
[2024-07-09] MEDS: sucralfate 1 gm/10 mL Oral Liq UDC PO ×2 (09:18→17:51)
[2024-07-09] MEDS: predniSONE 5 mg Tablet PO (09:19)
[2024-07-09] MEDS: CLONazepam 0.5 mg Tablet 0.25 MG PO ×2 (09:19→17:51)
[2024-07-09] MEDS: folic acid 1 mg Tablet PO (09:19)
[2024-07-09] MEDS: lacosamide 50 mg Tablet 150 MG PO ×2 (09:19→17:52)
[2024-07-09] MEDS: tamsulosin 0.4 mg Capsule PO ×2 (09:19→17:52)
[2024-07-09] MEDS: levETIRAcetam 1,000 MG/100 ML PREMIX 400 MG IV ×2 (09:20→20:38)
[2024-07-09] MEDS: zonisamide 100 MG Capsule PO ×2 (09:30→20:38)
--- NOTE | 2024-07-09 10:24 | PC.CHAP ---
Pastoral Care Encounter/Spiritual Assessment Type of Contact [] Declined fine chemicals operator visit [] Patient/Family/Request visit [] Outpatient visit [] Follow-up visit [] Physician referral [] Code/Alert [] Routine visit [] Staff referral [] Actively dying [] Patient sleeping [] Family support [] [] Out of room [] Palliative care [] [] Receiving care in room [] Pre-surgical visit [] Trauma [] Long length of stay [] ICU visit [x] Other:Contact precautions. No visit. Relational/Emotional Strength [] Patient feels connected with others/family/visitors/staff [] Distress [] Loneliness/isolation [] Abandonment Spirituality of Patient [] Person of Myesha [] Attends Mormon of their Myesha [] Believes in Prayer [] Reads Bible or Taoism materials [] There are Spiritual issues to be addressed [place] Representative Interventions [] Prayer [] Active listening [] Non-anxious presence [] Spiritual/emotional support [] Crisis/trauma care [] Spiritual counseling [] Bereavement support [] Provided bereavement packet [] Provided Bible/devotional materials [] Provided toy/stuffed animal, coloring book to patient or family member [] Provided Communion [] Anointing/[place] [] Salvation [] Completed spiritual assessment [] Other: Impact on Illness or Injury [] Angry [] Fearful [] Anxious [] Often cries [] Exhaustion [] Unable to work [] Unable to attend anabaptist [] Unable to walk/stand [] Unable to read [] Unable to drive [] Unable to eat/drink [] Unable to sleep [] Unable to be with family [] Patient intubated [] Other: Summary Time spent with patient
[2024-07-09] MEDS: fluoxetine 10 mg Capsule PO (13:24)
[2024-07-09] MEDS: fluoxetine 20 mg Capsule PO (13:24)
[2024-07-09] MEDS: enoxaparin 40 mg/0.4 mL Syringe SUBCUT (17:52)
[2024-07-09] MEDS: cefTRIAXone 1,000 mg SDV 1000 MG IVP (17:53)
--- NOTE | 2024-07-09 18:05 | P.PN_ITS ---
Subjective 2 Subjective: 68-year-old female admitted wi intellectual delay has seizure disorder at baseline and [facility]. She became acutely ill with respiratory syncytial virus and had markedly elevated C-reactive protein but negative lactic acid white count and mild increase in her oxygen requirement from 2 L at baseline to 3 L she has never been a smoker per Tiffany's report. Oxygen only required at night to read also noted to have UTI also noted to have UTI treated with Rocephin Tifafny is present at bedside and states the patient has not been having seizures recently. She has been taking the pills here okay and thinks that they could provide care similar to this at home including the oxygen but cannot give her IV therapy. Patient states she is not doing great due to cough Tiffany states that she has worn her BiPAP reliably for about an hour at a time then requires adjustment Vitals/I&O/Wt Last Vital Signs Temp 98.0 F 07/09/24 15:40 Pulse 82 07/09/24 15:40 Resp 14 07/09/24 15:40 BP 106/69 07/09/24 15:40 Pulse Ox 94 07/09/24 15:40 O2 Del Method Nasal Cannula 07/09/24 15:40 O2 Flow Rate 3 07/09/24 15:22 FiO2 35 07/09/24 07:38 07/09/24 07/09/24 07/09/24 06:59 14:59 22:59 Intake Total 0 / 100 100 / 100 Output Total 200 / 200 Balance 0 / 100 100 / 100 -200 / -100 Weight last 48 hrs Weight 53.751 kg Weight 52.889 kg Weight 31.751 kg Physical Exam 2 Narrative: General well-nourished female with kyphosis CV regular rate and rhythm Lungs coarse breath sounds with crackles heard but with coughing and deep breaths the crackles resolved air movement is good. Deep breaths because significant coughing moist sounding but did not bring anything up Abdomen positive bowel sounds soft Vallecillo is in place Calves no tenderness pretibial edema Urinary Catheter Management: Vallecillo: Cath Placed During This Visit: yes Reason for Continuing Indwelling Catheter: Acute Urinary Retention or Obstruction Urinary Catheter Date of Insertion: 07/09/24 Urinary Catheter Time of Insertion: 01:03 Data 07/09/24 07:27 07/09/24 06:20 Micro: Microbiology 07/08/24 14:44 Blood Culture - Preliminary Blood NEGATIVE TO DATE 07/08/24 14:37 Blood Culture - Preliminary Blood NEGATIVE TO DATE 07/08/24 16:14 Urine Culture - Preliminary Urine,Clean Catch Gram Negative Rods A&P Assessment and plan (1) Respiratory syncytial virus (RSV): Admitted with lung inflammation coughing and tachypnea now improved respiratory rate down to 14 from 23 Qualifiers: RSV infection type: pneumonia Qualified Code(s): J12.1 - Respiratory syncytial virus pneumonia (2) Benign essential HTN: Blood pressure well-controlled to low at 92-1 16 systolic (3) Rheumatoid arthritis: Stable clinically this may explain in part her elevated C-reactive protein Qualifiers: Rheumatoid arthritis location: multiple sites Rheumatoid factor presence: unspecified presence Qualified Code(s): M06.9 - Rheumatoid arthritis, unspecified (4) Altered mental status: Improved and conversant Qualifiers: Altered mental status type: unspecified Qualified Code(s): R41.82 - Altered mental status, unspecified (5) Seizure: No seizures recently at home or here (6) Hypoxia: Patient has hypoxia at night presumably related to sleep apnea and poor mobility Plan RSV related to acute hypoxia Currently patient on 3 L Mild hypercapnia noted Will keep patient on BiPAP overnight Patient is somnolent, Conservative management for RSV pneumonia Metabolic encephalopathy: Like related to UTI Will keep patient on ceftriaxone Request urine culture History of seizure: I will continue her antiepileptics, will use IV Keppra and once she is able to swallow medications we will start her p.o. antiepileptic medications Will keep patient on mechanical soft diet DVT prophylaxis added in the form of Lovenox Goals of care need to be verified echo try to call her family they are not picking up the phone, recent admission to the hospital states full code however previous admissions stated DNR/DNI, DNR/DNI status was endorsed by the caregiver who is at the bedside Please readdress in the morning PDMP PDMP Reviewed: Not Reviewed Attestations 2 Medical Necessity Statement*: Patient remained in the hospital overnight. Will change medications to oral remove Vallecillo. Increase activity with physical therapy and consider discharge tomorrow Time Spent in Patient Care: 55-minute Coding Level of Care Code 77983 Diagnoses Respiratory syncytial virus (RSV) J12.1 RSV infection type: pneumonia Benign essential HTN I10 Rheumatoid arthritis involving multiple sites, unspecified whether rheumatoid factor present M06.9 Rheumatoid arthritis location: multiple sites Rheumatoid factor presence: unspecified presence Altered mental status R41.82 Altered mental status type: unspecified Seizure R56.9 Hypoxia R09.02
[2024-07-09] MEDS: predniSONE 20 mg Tablet PO (18:46)
--- NOTE | 2024-07-09 19:03 | PC.NURSE ---
This nurse attempted to remove patients longoria, however, caregiver says her and the doctor discussed removing this in the morning. This nurse will relay this to the night nurse taking over.
[2024-07-10] VITALS (13 sets, daily range): BP systolic 112–139; BP diastolic 67–97; PULSE 68–101; RESP 13–23; TEMP 36.3–37; O2SAT 90–100
[2024-07-10] MEDS: levETIRAcetam 1,000 MG/100 ML PREMIX 400 MG IV ×2 (09:25→20:05)
[2024-07-10] MEDS: LORazepam 2 mg/mL INJ 1 mL ×2 (09:57→18:25)
--- NOTE | 2024-07-10 10:16 | PC.SOCIAL ---
IMM Updated Updated pt's guardian & caregiver on IMM. No questions voiced. Provided pt a copy. Initialed, dated, & timed copy in chart.
--- NOTE | 2024-07-10 11:40 | P.PN_ITS ---
Subjective 2 Subjective: 68-year-old female with mental developmental delay has seizure disorder managed by [facility] physician and neurology. This has been difficult to control and she has breakthrough seizures. She is accompanied by her long-term caregiver Saima who gives a history of patient having seizures and if it last more than 2 minutes they are to give Valium rectal gel. If lasting more than 3 minutes they are to call the ER. Today the patient had seizures starting at 0933 and lasting 0945. I was called to rapid response and we did administer lorazepam 2 mg through left arm IV but that was infiltrated so we gave another 2 mg IM left deltoid. 1346 on 07/10/2024 I spoke with Mayte zazueta at . I informed Mayte the sister and POA that patient had rapid response today with seizure and is somnolent but improving. I am considered intubating the patient. I asked her for direction regarding intubation and CPR. She states that she has talked with the patient before and the patient has not wanted CPR. Mayte further states that she has been DNR consistent with what we have documented from September 2021 except for the November 2023 admission which I think the patient defaulted to full code due to lack of discussion. Mayte states the patient would not want intubation either. CODE STATUS changed to DNR/DNI Vitals/I&O/Wt Last Vital Signs Temp 97.6 F 07/10/24 08:00 Pulse 73 07/10/24 08:00 Resp 15 07/10/24 08:00 BP 126/79 07/10/24 08:00 Pulse Ox 99 07/10/24 08:00 O2 Del Method BiPAP 07/10/24 08:00 O2 Flow Rate 3 07/10/24 08:00 FiO2 35 07/10/24 07:43 07/09/24 07/10/24 07/10/24 22:59 06:59 14:59 Intake Total 100 / 200 0 / 200 100 / 100 Output Total 200 / 200 Balance -100 / 0 0 / 0 100 / 100 Weight last 48 hrs Weight 53.025 kg Weight 53.751 kg Weight 52.889 kg Weight 31.751 kg Physical Exam 2 Narrative: General Well-developed female kyphotic anterior and to the right. She had coarse upper airway sounds but is moving air well. Patient is suctioned. No significant exudate. CV regular rhythm borderline tachycardic Lungs clear to auscultation bilaterally Abdomen soft nontender Pupils equally round patient is not following commands Reevaluation 1153 patient is still somnolent she does weakly respond but not verbal and does not open eyes has been sleeping since her seizure this Urinary Catheter Management: Vallecillo: Cath Placed During This Visit: yes Reason for Continuing Indwelling Catheter: Acute Urinary Retention or Obstruction Urinary Catheter Date of Insertion: 07/09/24 Urinary Catheter Time of Insertion: 01:03 Data 07/09/24 07:27 07/09/24 06:20 Micro: Microbiology 07/08/24 14:44 Blood Culture - Preliminary Blood NEGATIVE TO DATE 07/08/24 14:37 Blood Culture - Preliminary Blood NEGATIVE TO DATE 07/08/24 16:14 Urine Culture - Preliminary Urine,Clean Catch Gram Negative Rods A&P Assessment and plan (1) Respiratory syncytial virus (RSV): Admitted with lung inflammation coughing and tachypnea now improved respiratory rate down to 14 from 23 Complicated by seizure this morning Qualifiers: RSV infection type: pneumonia Qualified Code(s): J12.1 - Respiratory syncytial virus pneumonia (2) Benign essential HTN: Blood pressure stable (3) Rheumatoid arthritis: Stable clinically this may explain in part her elevated C-reactive protein Qualifiers: Rheumatoid arthritis location: multiple sites Rheumatoid factor presence: unspecified presence Qualified Code(s): M06.9 - Rheumatoid arthritis, unspecified (4) Altered mental status: Lethargic since seizure Qualifiers: Altered mental status type: unspecified Qualified Code(s): R41.82 - Altered mental status, unspecified (5) Seizure: Seizure this morning treated with lorazepam (6) Hypoxia: Monitor additionally overnight to look for any signs of aspiration Plan Goals of care need to be verified echo try to call her family they are not picking up the phone, recent admission to the hospital states full code however previous admissions stated DNR/DNI, DNR/DNI status was endorsed by the caregiver who is at the bedside Please readdress in the morning PDMP PDMP Reviewed: Not Reviewed Attestations 2 Medical Necessity Statement*: Patient with seizure this morning. Continue to monitor for signs of aspiration overnight. Anticipate discharge in 1 to 2 days Time Spent in Patient Care: 55 minutes Coding Level of Care Code Acute Code for Chg Fwd Diagnoses Respiratory syncytial virus (RSV) J12.1 RSV infection type: pneumonia Benign essential HTN I10 Rheumatoid arthritis involving multiple sites, unspecified whether rheumatoid factor present M06.9 Rheumatoid arthritis location: multiple sites Rheumatoid factor presence: unspecified presence Altered mental status R41.82 Altered mental status type: unspecified Seizure R56.9 Hypoxia R09.02 Time Spent (min) 55
[2024-07-10] MEDS: PHENYTOIN 50 MG 50 EACH PO ×2 (14:29→20:07)
--- NOTE | 2024-07-10 15:17 | PC.OT ---
HOLD OT EVAL TODAY DUE TO RAPID RESPONSE; OT EVAL WILL BE ATTEMPTED AT AGAIN AT LATER TIME.
[2024-07-10] MEDS: CLONazepam 0.5 mg Tablet 0.25 MG PO (18:14)
[2024-07-10] MEDS: tamsulosin 0.4 mg Capsule PO (18:14)
[2024-07-10] MEDS: lacosamide 50 mg Tablet 150 MG PO (18:14)
[2024-07-10] MEDS: sucralfate 1 gm/10 mL Oral Liq UDC PO (18:14)
[2024-07-10] MEDS: enoxaparin 40 mg/0.4 mL Syringe SUBCUT (18:14)
[2024-07-10] MEDS: famotidine 20 mg Tablet PO (18:15)
[2024-07-10] MEDS: zonisamide 100 MG Capsule PO (20:07)
[2024-07-10] MEDS: cefTRIAXone 1,000 mg SDV 1000 MG IVP (20:07)
[2024-07-10] MEDS: ipratropium-albuterol 3 mL Neb INHALATION (20:46)
[2024-07-11] VITALS (8 sets, daily range): BP systolic 118–137; BP diastolic 70–79; PULSE 73–91; RESP 14–20; TEMP 36.4–36.9; O2SAT 90–97
[2024-07-11] MEDS: tamsulosin 0.4 mg Capsule PO ×2 (09:11→17:58)
[2024-07-11] MEDS: lacosamide 50 mg Tablet 150 MG PO ×2 (09:11→17:58)
[2024-07-11] MEDS: predniSONE 20 mg Tablet PO (09:12)
[2024-07-11] MEDS: folic acid 1 mg Tablet PO (09:12)
[2024-07-11] MEDS: sucralfate 1 gm/10 mL Oral Liq UDC PO ×2 (09:12→17:58)
[2024-07-11] MEDS: CLONazepam 0.5 mg Tablet 0.25 MG PO ×2 (09:12→17:59)
[2024-07-11] MEDS: famotidine 20 mg Tablet PO ×2 (09:12→17:58)
[2024-07-11] MEDS: PHENYTOIN 50 MG 50 EACH PO ×3 (09:13→19:47)
[2024-07-11] MEDS: zonisamide 100 MG Capsule PO ×2 (09:23→19:47)
[2024-07-11] MEDS: levETIRAcetam 1,000 MG/100 ML PREMIX 400 MG IV ×2 (09:23→19:48)
--- NOTE | 2024-07-11 12:34 | PC.OT ---
OT orders received to evaluate and tx. Therapist went into pt's room. Pt. too lethargic to participate in evaluation at this time. OT evaluation to be completed once patient is appropriate.
[2024-07-11] MEDS: fluoxetine 20 mg Capsule PO (13:14)
[2024-07-11] MEDS: fluoxetine 10 mg Capsule PO (13:15)
[2024-07-11] MEDS: enoxaparin 40 mg/0.4 mL Syringe SUBCUT (18:03)
--- NOTE | 2024-07-11 18:29 | P.PN_ITS ---
Subjective 2 Subjective: Patient is accompanied by and being fed by Jessa her caregiver. Jessa reports the patient is more sedate than her usual but this is what they see after prolonged seizure. Patient has been having a moist cough. Vitals/I&O/Wt Last Vital Signs Temp 97.8 F 07/11/24 16:00 Pulse 73 07/11/24 16:00 Resp 16 07/11/24 16:00 BP 128/77 07/11/24 16:00 Pulse Ox 97 07/11/24 16:00 O2 Del Method Nasal Cannula 07/11/24 16:00 O2 Flow Rate 3 07/11/24 08:10 FiO2 35 07/11/24 04:08 07/11/24 07/11/24 07/11/24 06:59 14:59 22:59 Intake Total 240 / 240 340 / 580 Output Total 350 / 350 250 / 250 Balance -350 / -30 240 / 240 90 / 330 Weight last 48 hrs Weight 59.647 kg Weight 53.025 kg Physical Exam 2 Narrative: General well-developed well-nourished lethargic female spoon fed but slow to swallow. She reports satiety after about half of her meal CV regular rate and rhythm Lungs moist sounding rhonchi moderate air movement Abdomen soft Urinary Catheter Management: Vallecillo: Cath Placed During This Visit: yes Reason for Continuing Indwelling Catheter: Acute Urinary Retention or Obstruction Urinary Catheter Date of Insertion: 07/09/24 Urinary Catheter Time of Insertion: 01:03 Data 07/09/24 07:27 07/09/24 06:20 A&P Assessment and plan (1) Respiratory syncytial virus (RSV): Setback with seizure yesterday. Moist sounding cough today. I am concerned about aspiration. RSV is likely resolved by now. Will obtain chest x-ray Qualifiers: RSV infection type: pneumonia Qualified Code(s): J12.1 - Respiratory syncytial virus pneumonia (2) Benign essential HTN: Blood pressure stable (3) Rheumatoid arthritis: Stable clinically this may explain in part her elevated C-reactive protein Qualifiers: Rheumatoid arthritis location: multiple sites Rheumatoid factor presence: unspecified presence Qualified Code(s): M06.9 - Rheumatoid arthritis, unspecified (4) Altered mental status: Lethargic since seizure Qualifiers: Altered mental status type: unspecified Qualified Code(s): R41.82 - Altered mental status, unspecified (5) Seizure: None since yesterday (6) Hypoxia: Monitor additionally overnight to look for any signs of aspiration Plan I spoke with patient's sister and confirmed that she is still DNR and DNI PDMP PDMP Reviewed: Not Reviewed Attestations 2 Medical Necessity Statement*: Patient will need to have monitoring for hypoxemia and also have a chest x-ray today Coding Level of Care Code 75269 Diagnoses Respiratory syncytial virus (RSV) J12.1 RSV infection type: pneumonia Benign essential HTN I10 Rheumatoid arthritis involving multiple sites, unspecified whether rheumatoid factor present M06.9 Rheumatoid arthritis location: multiple sites Rheumatoid factor presence: unspecified presence Altered mental status R41.82 Altered mental status type: unspecified Seizure R56.9 Hypoxia R09.02 Time Spent (min) 35
--- NOTE | 2024-07-11 18:32 | XRR_ITS ---
PROCEDURE INFORMATION: Exam: XR Chest Exam date and time: 07/11/2024 6:40 PM Age: 68 years old Clinical indication: Other: Rsv; Additional info: Hypoxemia and seizure, history of rsv TECHNIQUE: Imaging protocol: Radiologic exam of the chest. Views: 1 view. COMPARISON: CR XR chest 1V portable [id number] 07/08/2024 2:10 PM FINDINGS: Limitations: Patient rotation. Tubes, catheters and devices: Left chest wall vagal stimulator. Lungs: Stable interstitial and left retrocardiac opacities. No new pulmonary opacities. Pleural spaces: No pleural effusion or pneumothorax. Heart/Mediastinum: The cardiomediastinal silhouette is stable. Bones/joints: No acute osseous abnormalities are seen. XR/XR chest 1V portable [id number] IMPRESSION: Stable radiographic appearance of the chest.
[2024-07-11] MEDS: cefTRIAXone 1,000 mg SDV 1000 MG IVP (20:56)
[2024-07-12] VITALS (8 sets, daily range): BP systolic 109–168; BP diastolic 67–94; PULSE 73–81; RESP 15–23; TEMP 36.4–36.8; O2SAT 94–97
[2024-07-12 05:31] LABS: Basophils % 0.4 %; Eosinophils # 0.5 10^3/uL (0.0-0.8); Eosinophils % 6.7 %; Hematocrit 31.5 % (36-47); Lymphocytes # 2.4 10^3/uL (0.8-4.8); Lymphocytes % 34.9 %; Mean Corpuscular HGB Conc 30.8 g/dL (30-55); Mean Corpuscular Hemoglobin 34.5 pg (27-33); Mean Corpuscular Volume 112.1 fl (85-98); Mean Platelet Volume 10.5 fL (7.4-10.4); Monocytes # 0.3 10^3/uL (0.2-0.9); Monocytes % 4.8 %; Neutrophils # 3.62 10^3/uL (1.8-7.7); Neutrophils % 52.8 %; Nucleated Red Blood Cells % 0 %; Platelet Count 213 10^3/cmm (157-399); Red Blood Count 2.81 10^6/uL (3.85-5.65); Red Cell Distribution Width 13.3 % (12.1-15.1); White Blood Count 6.87 10^3/uL (3.29-11.43)
[2024-07-12 05:48] LABS: Alanine Aminotransferase 21 U/L (0-33); Albumin Level 2.9 g/dL (3.5-5.2); Alkaline Phosphatase 144 U/L (35-105); Anion Gap 12.3 (5-19); Aspartate Amino Transferase 23 U/L (0-32); Blood Urea Nitrogen 16 mg/dL (8-23); Calcium 8.3 mg/dL (8.5-10.5); Carbon Dioxide 27 mmol/L (22-29); Chloride 109 mmol/L (98-107); Creatinine Clr Calc Pharmacy 53.9248; Globulin 3.3 g/dL (1.3-4.6); Glomerular Filtration Rate 122.3 mL/min (90-130); Glucose 96 mg/dL (65-115); Osmolality Calculated 301 mOsm/kg (285-295); Potassium 3.3 mmol/L (3.5-5.1); Sodium 145 mmol/L (136-145); Total Bilirubin 0.2 mg/dL (0.15-1.2); Total Protein 6.2 g/dL (6.6-8.7)
[2024-07-12] MEDS: ipratropium-albuterol 3 mL Neb INHALATION (07:37)
[2024-07-12] MEDS: CLONazepam 0.5 mg Tablet 0.25 MG PO ×2 (09:41→19:39)
[2024-07-12] MEDS: predniSONE 20 mg Tablet PO (09:41)
[2024-07-12] MEDS: lacosamide 50 mg Tablet 150 MG PO ×2 (09:41→19:39)
[2024-07-12] MEDS: levETIRAcetam 1,000 MG/100 ML PREMIX 400 MG IV ×2 (09:41→20:37)
[2024-07-12] MEDS: folic acid 1 mg Tablet PO (09:42)
[2024-07-12] MEDS: PHENYTOIN 50 MG 50 EACH PO ×3 (09:42→20:37)
[2024-07-12] MEDS: zonisamide 100 MG Capsule PO ×2 (09:42→20:37)
[2024-07-12] MEDS: famotidine 20 mg Tablet PO ×2 (09:42→19:39)
[2024-07-12] MEDS: tamsulosin 0.4 mg Capsule PO ×2 (09:42→19:39)
[2024-07-12] MEDS: sucralfate 1 gm/10 mL Oral Liq UDC PO ×2 (09:42→19:39)
[2024-07-12] MEDS: fluoxetine 10 mg Capsule PO (13:38)
[2024-07-12] MEDS: fluoxetine 20 mg Capsule PO (13:38)
--- NOTE | 2024-07-12 17:28 | P.PN_ITS ---
Subjective 2 Subjective: Patient is accompanied by Saima her caregiver. Saima reports the patient is more alert today since the prolonged seizure Saturday. Patient has been having a moist cough. Patient's sister also noted that cough has been back. Concerned that she aspirated. Chest x-ray done did not show a clear infiltrate and white count is normal but Saima does adamant the cough is worse and that the patient has had past aspiration not seen without Vitals/I&O/Wt Last Vital Signs Temp 98.3 F 07/12/24 12:00 Pulse 79 07/12/24 12:00 Resp 16 07/12/24 12:00 BP 109/70 07/12/24 12:00 Pulse Ox 94 07/12/24 12:00 O2 Del Method Nasal Cannula 07/12/24 12:00 O2 Flow Rate 3 07/12/24 07:39 FiO2 35 07/11/24 04:08 07/12/24 07/12/24 07/12/24 06:59 14:59 22:59 Intake Total 700 / 700 Output Total 125 / 375 Balance -125 / 305 700 / 700 Weight last 48 hrs Weight 60.419 kg Weight 59.647 kg Physical Exam 2 Narrative: General well-developed well-nourished awake female kyphotic and bent over to the right anterior CV regular rate and rhythm Lungs moist sounding rhonchi. Air movement is good there are crackles in the right lower lung field that do not clear with deep breath and coughing multiple times. Other lung virk are clear Abdomen soft nontender Calves no edema Urinary Catheter Management: Vallecillo: Cath Placed During This Visit: yes Reason for Continuing Indwelling Catheter: Acute Urinary Retention or Obstruction Urinary Catheter Date of Insertion: 07/09/24 Urinary Catheter Time of Insertion: 01:03 Data 07/12/24 04:15 07/12/24 04:15 Micro: Microbiology 07/08/24 16:14 Urine Culture - Final Urine,Clean Catch Pseudomonas aeruginosa A&P Assessment and plan (1) Aspiration pneumonia: Acutely worsened breathing and mentation since her long seizure on Saturday. Chest x-ray did not show definite infiltrate however exam shows coarse crackles in the right lower lung field that do not clear with deep breaths and cough Add metronidazole 500 mg 3 times daily to inpatient regimen Qualifiers: Aspiration pneumonia type: unspecified Laterality: right Lung location: lower lobe of lung Qualified Code(s): J69.0 - Pneumonitis due to inhalation of food and vomit (2) Respiratory syncytial virus (RSV): Setback with seizure yesterday. Moist sounding cough today. I am concerned about aspiration. RSV is likely resolved by now. Chest x-ray was rotated no definite infiltrate yesterday Qualifiers: RSV infection type: pneumonia Qualified Code(s): J12.1 - Respiratory syncytial virus pneumonia (3) Benign essential HTN: Blood pressure stable (4) Rheumatoid arthritis: Stable clinically this may explain in part her elevated C-reactive protein Qualifiers: Rheumatoid arthritis location: multiple sites Rheumatoid factor presence: unspecified presence Qualified Code(s): M06.9 - Rheumatoid arthritis, unspecified (5) Altered mental status: Lethargic since seizure Qualifiers: Altered mental status type: unspecified Qualified Code(s): R41.82 - Altered mental status, unspecified (6) Seizure: None since yesterday (7) Hypoxia: Improved from 92% to 98% with deep breaths and coughing on 2 L nasal cannula Plan I spoke with patient's sister and confirmed that she is still DNR and DNI PDMP PDMP Reviewed: Not Reviewed Attestations 2 Medical Necessity Statement*: Patient will have additional 1-2 midnights to treat with metronidazole for aspiration pneumonia. Continue Rocephin wipeout this morning was normal. I suspect that aspiration ammonia partially covered already by the Rocephin Coding Level of Care Code 23649 Diagnoses Aspiration pneumonia of right lower lobe, unspecified aspiration pneumonia type J69.0 Aspiration pneumonia type: unspecified Laterality: right Lung location: lower lobe of lung Respiratory syncytial virus (RSV) J12.1 RSV infection type: pneumonia Benign essential HTN I10 Rheumatoid arthritis involving multiple sites, unspecified whether rheumatoid factor present M06.9 Rheumatoid arthritis location: multiple sites Rheumatoid factor presence: unspecified presence Altered mental status R41.82 Altered mental status type: unspecified Seizure R56.9 Hypoxia R09.02 Time Spent (min) 55
[2024-07-12] MEDS: acetaminophen 500 mg Tablet PO (19:38)
[2024-07-12] MEDS: enoxaparin 40 mg/0.4 mL Syringe SUBCUT (19:38)
[2024-07-12] MEDS: lactobacillus 1 Tablet 1 TAB PO (19:39)
[2024-07-12] MEDS: guaiFENesin 600 mg Tablet 1200 MG PO (19:39)
[2024-07-12] MEDS: metroNIDAZOLE IV 500 MG/100 ML PREMIX 100 MG IV (19:40)
[2024-07-12] MEDS: cefTRIAXone 1,000 mg SDV 1000 MG IVP (20:37)
[2024-07-13] MEDS: metroNIDAZOLE IV 500 MG/100 ML PREMIX 100 MG IV ×2 (01:42→09:40)
[2024-07-13 04:00] VITALS: BP 124/69; PULSE 72; RESP 22; TEMP 36.5; O2SAT 92
[2024-07-13 07:50] VITALS: BP 112/65; PULSE 74; RESP 17; TEMP 36.6; O2SAT 93
[2024-07-13] MEDS: lacosamide 50 mg Tablet 150 MG PO ×2 (07:56→17:22)
[2024-07-13] MEDS: lactobacillus 1 Tablet 1 TAB PO ×2 (07:56→17:22)
[2024-07-13] MEDS: CLONazepam 0.5 mg Tablet 0.25 MG PO ×2 (07:56→17:23)
[2024-07-13] MEDS: guaiFENesin 600 mg Tablet 1200 MG PO ×2 (07:57→17:22)
[2024-07-13] MEDS: predniSONE 20 mg Tablet PO (07:58)
[2024-07-13] MEDS: tamsulosin 0.4 mg Capsule PO ×2 (07:58→17:22)
[2024-07-13] MEDS: famotidine 20 mg Tablet PO ×2 (07:58→17:22)
[2024-07-13] MEDS: levETIRAcetam 1,000 MG/100 ML PREMIX 400 MG IV ×2 (07:58→20:14)
[2024-07-13] MEDS: zonisamide 100 MG Capsule PO ×2 (07:58→20:14)
[2024-07-13] MEDS: folic acid 1 mg Tablet PO (07:58)
[2024-07-13] MEDS: sucralfate 1 gm/10 mL Oral Liq UDC PO ×2 (08:01→17:22)
[2024-07-13] MEDS: PHENYTOIN 50 MG 50 EACH PO ×3 (08:01→20:14)
[2024-07-13 08:23] VITALS: PULSE 73; RESP 22; O2SAT 97
[2024-07-13] MEDS: fluoxetine 10 mg Capsule PO (11:33)
[2024-07-13] MEDS: fluoxetine 20 mg Capsule PO (11:33)
[2024-07-13 12:00] VITALS: BP 116/73; PULSE 79; RESP 17; TEMP 36.7; O2SAT 96
--- NOTE | 2024-07-13 13:17 | PC.SOCIAL ---
IMM Update pg 2 of IMM Updated and reviewed w/ patients caregiver @ bedside. Copy provided and copy dated, initialed and placed in chart.
--- NOTE | 2024-07-13 15:05 | P.PN_ITS ---
Subjective 2 Subjective: Patient was seen this healthcare marketer at bedside she is alert to person, not to place, to time, she is able to waved to me, able to say [place], caregiver at bedside tells me she is more responsive this morning, she does not use oxygen during the day currently on oxygen she does use oxygen during the night Vitals/I&O/Wt Last Vital Signs Temp 98.1 F 07/13/24 12:00 Pulse 79 07/13/24 12:00 Resp 17 07/13/24 12:00 BP 116/73 07/13/24 12:00 Pulse Ox 96 07/13/24 12:00 O2 Del Method Nasal Cannula 07/13/24 12:00 O2 Flow Rate 2 07/13/24 08:23 FiO2 35 07/11/24 04:08 07/13/24 07/13/24 07/13/24 06:59 14:59 22:59 Intake Total 100 / 1120 350 / 350 Output Total 175 / 375 Balance -75 / 745 350 / 350 Weight last 48 hrs Weight 65.227 kg Weight 60.419 kg Physical Exam 2 Const: COMMON NORMALS: no acute distress ORIENTATION/CONSCIOUSNESS: Yes awake and Yes oriented to person; not oriented to place and not oriented to time Resp: COMMON NORMALS: normal respiratory effort, No retractions and No use of accessory muscles AUSCULTATION: crackles and wheezes Cardio: COMMON NORMALS: regular rate, regular rhythm, S1 normal heart sound present and S2 normal heart sound present RATE: regular rate RHYTHM: r egular rhythm HEART SOUNDS: S1 normal heart sound present and S2 normal heart sound present GI: COMMON NORMALS: Normal to inspection, nondistended, normoactive bowel sounds present and non-tender Extremity: COMMON NORMALS: no pedal edema Neuro: SENSORIUM/ORIENTATION: Yes oriented to person, No oriented to place and No oriented to time Psych: COMMON NORMALS: mental status grossly normal Urinary Catheter Management: [place]: Cath Placed During This Visit: yes Reason for Continuing Indwelling Catheter: Acute Urinary Retention or Obstruction Urinary Catheter Date of Insertion: 07/09/24 Urinary Catheter Time of Insertion: 01:03 Data 07/12/24 04:15 07/12/24 04:15 Micro: Microbiology 07/08/24 14:44 Blood Culture - Final Blood NO GROWTH AFTER 5 DAYS 07/08/24 14:37 Blood Culture - Final Blood NO GROWTH AFTER 5 DAYS 07/08/24 16:14 Urine Culture - Final Urine,Clean Catch Pseudomonas aeruginosa A&P Assessment and plan (1) Aspiration pneumonia: - Crackles in all lung virk, on Rocephin, Flagyl -Broaden antibiotic coverage to cefepime 2 g IV every 12 hours Qualifiers: Aspiration pneumonia type: unspecified Laterality: right Lung location: lower lobe of lung Qualified Code(s): J69.0 - Pneumonitis due to inhalation of food and vomit (2) Respiratory syncytial virus (RSV): -Monitor Qualifiers: RSV infection type: pneumonia Qualified Code(s): J12.1 - Respiratory syncytial virus pneumonia (3) Benign essential HTN: Monitor (4) Rheumatoid arthritis: Monitor Qualifiers: Rheumatoid arthritis location: multiple sites Rheumatoid factor presence: unspecified presence Qualified Code(s): M06.9 - Rheumatoid arthritis, unspecified (5) Altered mental status: Mentation improving Qualifiers: Altered mental status type: unspecified Qualified Code(s): R41.82 - Altered mental status, unspecified (6) Seizure: Continue IV Keppra (7) Hypoxia: Improved from 92% to 98% with deep breaths and coughing on 2 L nasal cannula Plan -CODE STATUS DNR/DNI UTI, Pseudomonas, cefepime Plan for today broaden antibiotic coverage with cefepime monitor respiratory status monitor mentation PDMP PDMP Reviewed: Not Reviewed Attestations 2 Medical Necessity Statement*: Patient requires hospitalization for aspiration pneumonia, Pseudomonas UTI Diagnoses Aspiration pneumonia of right lower lobe, unspecified aspiration pneumonia type J69.0 Aspiration pneumonia type: unspecified Laterality: right Lung location: lower lobe of lung Respiratory syncytial virus (RSV) J12.1 RSV infection type: pneumonia Benign essential HTN I10 Rheumatoid arthritis involving multiple sites, unspecified whether rheumatoid factor present M06.9 Rheumatoid arthritis location: multiple sites Rheumatoid factor presence: unspecified presence Altered mental status R41.82 Altered mental status type: unspecified Seizure R56.9 Hypoxia R09.02
[2024-07-13 16:00] VITALS: BP 153/90; PULSE 73; RESP 16; TEMP 36.5; O2SAT 98
[2024-07-13] MEDS: cefepime 2,000 mg SDV 2000 MG IVP (17:22)
[2024-07-13] MEDS: enoxaparin 40 mg/0.4 mL Syringe SUBCUT (17:23)
[2024-07-13 20:00] VITALS: BP 175/93; PULSE 74; RESP 19; TEMP 36.7; O2SAT 97
[2024-07-14] VITALS: BP 152/87; PULSE 79; RESP 20; TEMP 36.9; O2SAT 98
[2024-07-14 04:00] VITALS: BP 157/87; PULSE 83; RESP 20; TEMP 37; O2SAT 93
[2024-07-14 05:42] LABS: Basophils % 0.3 %; Eosinophils # 0.3 10^3/uL (0.0-0.8); Eosinophils % 4.9 %; Hematocrit 30.7 % (36-47); Lymphocytes # 1.8 10^3/uL (0.8-4.8); Lymphocytes % 25.2 %; Mean Corpuscular HGB Conc 30.9 g/dL (30-55); Mean Corpuscular Hemoglobin 34.1 pg (27-33); Mean Platelet Volume 9.7 fL (7.4-10.4); Monocytes # 0.5 10^3/uL (0.2-0.9); Monocytes % 6.6 %; Neutrophils # 4.39 10^3/uL (1.8-7.7); Neutrophils % 62.6 %; Nucleated Red Blood Cells % 0 %; Platelet Count 228 10^3/cmm (157-399); Red Blood Count 2.79 10^6/uL (3.85-5.65); Red Cell Distribution Width 12.9 % (12.1-15.1); White Blood Count 7.01 10^3/uL (3.29-11.43)
[2024-07-14] MEDS: cefepime 2,000 mg SDV 2000 MG IVP (05:50)
[2024-07-14 06:06] LABS: Alanine Aminotransferase 26 U/L (0-33); Albumin Level 2.8 g/dL (3.5-5.2); Alkaline Phosphatase 120 U/L (35-105); Anion Gap 13.1 (5-19); Aspartate Amino Transferase 24 U/L (0-32); Blood Urea Nitrogen 10 mg/dL (8-23); Calcium 8.2 mg/dL (8.5-10.5); Carbon Dioxide 24 mmol/L (22-29); Chloride 106 mmol/L (98-107); Globulin 3.1 g/dL (1.3-4.6); Glomerular Filtration Rate 122.3 mL/min (90-130); Glucose 95 mg/dL (65-115); Osmolality Calculated 289 mOsm/kg (285-295); Potassium 3.1 mmol/L (3.5-5.1); Sodium 140 mmol/L (136-145); Total Bilirubin 0.2 mg/dL (0.15-1.2); Total Protein 5.9 g/dL (6.6-8.7)
[2024-07-14 07:48] VITALS: PULSE 82; RESP 20; O2SAT 88
[2024-07-14 08:00] VITALS: BP 137/82; PULSE 80; RESP 16; TEMP 36.7; O2SAT 96
[2024-07-14] MEDS: sucralfate 1 gm/10 mL Oral Liq UDC PO (08:36)
[2024-07-14] MEDS: lactobacillus 1 Tablet 1 TAB PO (08:36)
[2024-07-14] MEDS: zonisamide 100 MG Capsule PO (08:36)
[2024-07-14] MEDS: lacosamide 50 mg Tablet 150 MG PO (08:36)
[2024-07-14] MEDS: tamsulosin 0.4 mg Capsule PO (08:37)
[2024-07-14] MEDS: folic acid 1 mg Tablet PO (08:37)
[2024-07-14] MEDS: famotidine 20 mg Tablet PO (08:37)
[2024-07-14] MEDS: predniSONE 20 mg Tablet PO (08:37)
[2024-07-14] MEDS: CLONazepam 0.5 mg Tablet 0.25 MG PO (08:37)
[2024-07-14] MEDS: guaiFENesin 600 mg Tablet 1200 MG PO (08:37)
[2024-07-14] MEDS: PHENYTOIN 50 MG 50 EACH PO (08:38)
[2024-07-14] MEDS: polyethylene glycol 3350 Pkt 17 gm PO (08:38)
[2024-07-14] MEDS: levETIRAcetam 1,000 MG/100 ML PREMIX 400 MG IV (08:38)
[2024-07-14] MEDS: acetaminophen 500 mg Tablet PO (08:50)
--- NOTE | 2024-07-14 10:36 | P.DS_ITS ---
Discharge Providers Date of Admission: 07/08/24 16:55 Date of Discharge: July 14, 2024 Attending Provider at Admission: Mellissa Bettencourt MD Attending Provider at Discharge: Frederic Joseph MD Primary Care Provider: Marilyn Trivedi APN Diagnoses at Discharge Discharge Diagnosis (1) Aspiration pneumonia: Status: Resolved Qualifiers: Aspiration pneumonia type: unspecified Laterality: right Lung location: lower lobe of lung Qualified Code(s): J69.0 - Pneumonitis due to inhalation of food and vomit (2) Respiratory syncytial virus (RSV): Status: Acute Qualifiers: RSV infection type: pneumonia Qualified Code(s): J12.1 - Respiratory syncytial virus pneumonia (3) Benign essential HTN: Status: Acute (4) Rheumatoid arthritis: Status: Acute Qualifiers: Rheumatoid arthritis location: multiple sites Rheumatoid factor presence: unspecified presence Qualified Code(s): M06.9 - Rheumatoid arthritis, unspecified (5) Altered mental status: Status: Acute Qualifiers: Altered mental status type: unspecified Qualified Code(s): R41.82 - Altered mental status, unspecified (6) Seizure: Status: Acute (7) Hypoxia: Status: Acute Reason for Visit Reason for Visit: Flu Hospital Course Hospital Course This is a 68-year-old female who lives in a retirement, history of seizure disorder, who presents to [facility] due to lethargy, fatigue Patient was admitted to [facility] for acute hypoxic respiratory failure secondary to RSV, aspiration pneumonia, metabolic encephalopathy, Patient was monitored as inpatient, received oxygen therapy, breathing treatments, antibiotics for aspiration pneumonia overall clinically improved. Will be discharged with Augmentin with close follow-up with primary care, and follow-up pulmonary as outpatient. For aspiration pneumonia kept on dysphagia diet, will be discharged to dysphagia level 4 diet moderately thickened In terms of encephalopathy mentation improved on discharge she is alert to person, not to place, not to time, she can follow some commands, caregivers at bedside reports she is at baseline For her urinary tract infection, urine cultures grew Pseudomonas, was managed on cefepime, will be discharged on ciprofloxacin. Patient has a listed allergy to Levaquin, hives, she was given Cipro as inpatient, pretreated with Solu-Medrol, no anaphylactic reaction, no hives, monitor as outpatient for allergic reaction. Physical Exam Const: COMMON NORMALS: no acute distress ORIENTATION/CONSCIOUSNESS: Yes awake and Yes oriented to person Resp: COMMON NORMALS: normal respiratory effort, No retractions, No use of accessory muscles and clear to auscultation bilaterally AUSCULTATION: clear to auscultation bilaterally Cardio: COMMON NORMALS: regular rate, regular rhythm, S1 normal heart sound present and S2 normal heart sound present RATE: regular rate RHYTHM: regular rhythm HEART SOUNDS: S1 normal heart sound present and S2 normal hea rt sound present GI: COMMON NORMALS: Normal to inspection, nondistended, normoactive bowel sounds present and non-tender Extremity: COMMON NORMALS: no pedal edema Neuro: SENSORIUM/ORIENTATION: Yes oriented to person Urinary Catheter Management: [place]: Cath Placed During This Visit: yes Reason for Continuing Indwelling Catheter: Acute Urinary Retention or Obstruction Urinary Catheter Date of Insertion: 07/09/24 Urinary Catheter Time of Insertion: 01:03 Discharge Data Studies Completed and Pending Completed Studies During Hospitalization Category Date Time Status XR chest 1V portable [id number] Routine Exams 07/11/24 18:32 Completed XR chest 1V portable [id number] Stat Exams 07/08/24 14:05 Completed Pending at discharge Category Date Time Status Complete Blood Count w/Auto AM LABS Lab 07/15/24 04:00 Ordered Complete Blood Count w/Auto AM LABS Lab 07/16/24 04:00 Ordered Comprehensive Metabolic Panel AM LABS Lab 07/15/24 04:00 Ordered Comprehensive Metabolic Panel AM LABS Lab 07/16/24 04:00 Ordered Radiology Impressions Chest X-Ray 07/11/24 18:32 IMPRESSION: Stable radiographic appearance of the chest. Laboratory Results WBC 7.01 10^3/uL (3.29-11.43) 07/14/24 05:25 Corrected WBC Cancelled 07/09/24 06:20 RBC 2.79 10^6/uL (3.85-5.65) L 07/14/24 05:25 Hgb 9.50 g/dL (11.27-16.99) L 07/14/24 05:25 Hct 30.7 % (36-47) L 07/14/24 05:25 MCV 110.0 fl (85-98) H 07/14/24 05:25 MCH 34.1 pg (27-33) H 07/14/24 05:25 MCHC 30.9 g/dL (30-55) 07/14/24 05:25 RDW 12.9 % (12.1-15.1) 07/14/24 05:25 Plt Count 228 10^3/cmm (157-399) 07/14/24 05:25 MPV 9.7 fL (7.4-10.4) 07/14/24 05:25 Gran % Cancelled 07/09/24 06:20 Neut % (Auto) 62.6 % 07/14/24 05:25 Lymph % (Auto) 25.2 % 07/14/24 05:25 [place] % (Auto) 6.6 % 07/14/24 05:25 Eos % (Auto) 4.9 % 07/14/24 05:25 Baso % (Auto) 0.3 % 07/14/24 05:25 Neut # (Auto) 4.39 10^3/uL (1.8-7.7) 07/14/24 05:25 Lymph # (Auto) 1.8 10^3/uL (0.8-4.8) 07/14/24 05:25 [place] # (Auto) 0.5 10^3/uL (0.2-0.9) 07/14/24 05:25 Eos # (Auto) 0.3 10^3/uL (0.0-0.8) 07/14/24 05:25 Baso # (Auto) 0.0 10^3/uL (0.0-0.1) 07/14/24 05:25 Absolute Gran (auto) Cancelled 07/09/24 06:20 Nucleated RBC % (auto) 0 % 07/14/24 05:25 Nucleated RBCs # 0.0 /100WBC 07/14/24 05:25 Specimen Type Arterial 07/08/24 14:14 Sample Site Radial, left 07/08/24 14:14 ABG pH 7.37 (7.35-7.45) 07/08/24 14:14 ABG pCO2 48.5 mmHg (35-45) H 07/08/24 14:14 ABG pO2 97.1 mmHg (80.0-100.0) 07/08/24 14:14 ABG PO2/FiO2 Ratio 303 07/08/24 14:14 ABG HCO3 27.7 mmol/L (22-26) H 07/08/24 14:14 ABG O2 Saturation 95.9 07/08/24 14:14 ABG Base Excess 1.8 mmol/L (-2.0-2.0) 07/08/24 14:14 Gustavo Test Pos 07/08/24 14:14 A-a O2 Gradient 8.9 mmHg (5-10) 07/08/24 14:14 Hematocrit 32.7 % (37-47) L 07/08/24 14:14 Hgb O2 Saturation 91.3 % (95-100) L 07/08/24 14:14 Carboxyhemoglobin 1.0 %THgb (0.4-20.1) 07/08/24 14:14 Methemoglobin 3.7 % (0.4-1.5) H 07/08/24 14:14 Total Hemoglobin 10.7 g/dL (12-16) L 07/08/24 14:14 Sodium 144.0 mmol/L (131-143) H 07/08/24 14:14 Potassium 3.8 mmol/L (3.5-5.0) 07/08/24 14:14 Glucose 139.0 mg/dL (70-115) H 07/08/24 14:14 Ionized Calcium 1.2 mmol/L (1.1-1.4) 07/08/24 14:14 O2 Delivery Device Nc 07/08/24 14:14 O2 Liters/Min 3.0 % 07/08/24 14:14 FiO2 32.0 % 07/08/24 14:14 Hob Machine Operator ID [place] 07/08/24 14:14 Sodium 140 mmol/L (136-145) 07/14/24 05:25 Potassium 3.1 mmol/L (3.5-5.1) L 07/14/24 05:25 Chloride 106 mmol/L (98-107) 07/14/24 05:25 Carbon Dioxide 24 mmol/L (22-29) 07/14/24 05:25 Anion Gap 13.1 (5-19) 07/14/24 05:25 BUN 10 mg/dL (8-23) 07/14/24 05:25 Creatinine 0.5 mg/dL (0.5-0.9) 07/14/24 05:25 GFR Calculation 122.3 mL/min (90-130) 07/14/24 05:25 Glucose 95 mg/dL (65-115) 07/14/24 05:25 Calculated Osmolality 289 mOsm/kg (285-295) 07/14/24 05:25 Lactic Acid 0.8 mmol/L (0.5-2.2) 07/08/24 14:37 Calcium 8.2 mg/dL (8.5-10.5) L 07/14/24 05:25 Magnesium 2.0 mg/dL (1.7-2.3) 07/09/24 06:20 Total Bilirubin 0.2 mg/dL (0.15-1.2) 07/14/24 05:25 AST 24 U/L (0-32) 07/14/24 05:25 ALT 26 U/L (0-33) 07/14/24 05:25 Alkaline Phosphatase 120 U/L (35-105) H 07/14/24 05:25 Creatine Kinase 41 U/L (26-192) 07/08/24 14:37 C-Reactive Protein 61.1 mg/L (0.0-4.9) H 07/09/24 06:20 NT-Pro-B Natriuret Pep 329 pg/mL (0-125) H 07/08/24 14:37 Total Protein 5.9 g/dL (6.6-8.7) L 07/14/24 05:25 Albumin 2.8 g/dL (3.5-5.2) L 07/14/24 05:25 Globulin 3.1 g/dL (1.3-4.6) 07/14/24 05:25 Urine Color Red (Yellow) A 07/08/24 16:14 Urine Appearance Clear (CLEAR) 07/08/24 16:14 Urine pH 5.0 (5-7) 07/08/24 16:14 Ur Specific [place] 1.027 (1.005-1.030) 07/08/24 16:14 Urine Protein 2+ (Negative) A 07/08/24 16:14 Urine Glucose (UA) Negative (Normal) 07/08/24 16:14 Urine Ketones Negative (Negative) 07/08/24 16:14 Urine Blood Negative (Negative) 07/08/24 16:14 Urine Nitrate Not Reportable 07/08/24 16:14 Urine Bilirubin 2+ (Negative) H 07/08/24 16:14 Urine Urobilinogen 1.0 mg/dL (Negative) 07/08/24 16:14 Ur Leukocyte Esterase 2+ (Negative) A 07/08/24 16:14 Urine RBC 6-10 /hpf (0-2) 07/08/24 16:14 Urine WBC 0-5 /hpf (0-5) 07/08/24 16:14 Ur Squamous Epith Cells 0-5 /hpf (0-5) 07/08/24 16:14 Amorphous Sediment Not Reportable 07/08/24 16:14 Urine Bacteria 4+ /hpf (NONE) H 07/08/24 16:14 Hyaline Casts 1.65 /lpf 07/08/24 16:14 Coronavirus (PCR) Negative (Negative) 07/08/24 14:52 Influenza A (PCR) Negative (Negative) 07/08/24 14:52 Influenza Type B (PCR) Negative (Negative) 07/08/24 14:52 RSV (PCR) Positive (Negative) A 07/08/24 14:52 Vitals Last Vital Signs Temp 98.0 F 07/14/24 08:00 Pulse 80 07/14/24 08:00 Resp 16 07/14/24 08:00 BP 137/82 07/14/24 08:00 Pulse Ox 96 07/14/24 08:00 O2 Del Method Nasal Cannula 07/14/24 08:00 O2 Flow Rate 2 07/14/24 04:00 FiO2 35 07/11/24 04:08 Discharge Plan Discharge Patient Disposition: Home Condition: Stable Prescriptions: New ciprofloxacin HCl 250 mg tablet 250 mg PO BID 5 Days Qty: 10 0RF amoxicillin-pot clavulanate 875-125 mg tablet 1 tab PO BID 5 Days Qty: 10 0RF Continued folic acid 1 mg tablet 1 mg PO DAILY@08 montelukast [Singulair] 10 mg tablet 10 mg PO DAILY@08 multivitamin Tablet 1 tab PO DAILY@08 polyethylene glycol 3350 [Miralax] 17 gram/dose powder 17 gm PO .QOD@8AM Rx Instructions: with h2o or juice fluticasone propionate [Flonase Allergy Relief] 50 mcg/actuation spray,suspension 1 spray INTRANASAL DAILY@08 Rx Instructions: administer into each nostril pantoprazole [Protonix] 40 mg tablet,delayed release (DR/EC) 40 mg PO DAILY@08 zonisamide [Zonegran] 100 mg capsule 100 mg PO BID@08,20 phenazopyridine [Azo Urinary Pain Relief] 95 mg tablet 190 mg PO BID PRN (Reason: Bladder Spasms) simethicone [Gas-X Extra Strength] 125 mg capsule 125 mg PO Q8H PRN (Reason: Stomach Upset) tamsulosin [Flomax] 0.4 mg capsule 0.4 mg PO BID ondansetron HCl 4 mg Tablet 4 mg PO Q4H PRN (Reason: Nausea And Vomiting) sucralfate 100 mg/mL suspension 10 ml PO BID prednisone 5 mg tablet 5 mg PO QAM loperamide [Anti-Diarrheal (loperamide)] 2 mg tablet 2 mg PO QID PRN (Reason: Diarrhea) buspirone 10 mg tablet 10 mg PO TID clonazepam 0.25 mg tablet,disintegrating 0.25 mg PO BID budesonide-formoterol 80-4.5 mcg/actuation HFA aerosol inhaler 2 puff INHALATION BID lacosamide [Vimpat] 150 mg tablet 150 mg PO BID albuterol sulfate 5 mg/mL solution for nebulization 5 mg inhalation TID PRN (Reason: shortness of breath or wheezing) Qty: 600 0RF acetaminophen 325 mg tablet 650 mg PO Q6H PRN (Reason: pain or elevated temp) promethazine-DM 6.25-15 mg/5 mL syrup 5 ml PO Q4H PRN (Reason: evening cough) triamcinolone acetonide 0.1 % cream 1 applic TOPICAL BID PRN (Reason: rash or itching) cyanocobalamin (vitamin B-12) 1,000 mcg/mL solution 1,000 mcg IM Q30D Cough Drops 2.7 mg Lozenge 5.4 mg MUCOUS MEMBRANE Q2H PRN (Reason: Cough) levetiracetam 500 mg tablet 2,000 mg PO BID vitamin B complex Tablet 1 tab PO .DAILY@12PM polyethylene glycol 3350 [Miralax] 17 gram Powder In Packet 17 g PO EVERY OTHER DAY fluoxetine 20 mg Tablet 20 mg PO DAILY@12 Rx Instructions: along with 10mg to=30 mg total Acidophilus Tablet,Chewable 1 tab PO DAILY@08 albuterol sulfate 90 mcg/actuation Hfa Aerosol Inhaler 2 puff INHALATION QID PRN (Reason: Shortness Of Breath) clotrimazole 1 % Cream See Rx Instructions .ROUTE .COMPLEX Rx Instructions: Apply to rash twice daily until clear then use as needed. Nutritional Drink Liquid 1 ea PO TID@09,13,19 diclofenac sodium 1 % Gel 4 g TOPICAL QID PRN (Reason: Pain/arthritis) famotidine 20 mg tablet 20 mg PO BID Systane (propylene glycol) 0.4-0.3 % Drops 1 drp ophthalmic (eye) TID Rx Instructions: both eyes fluoxetine 10 mg capsule 10 mg PO DAILY@12 Rx Instructions: along with 20mg to=30 mg total dextromethorphan-guaifenesin [Tussin DM Cough and Chest] 5-100 mg/5 mL liquid 10 ml PO BID PRN (Reason: Cough) phenytoin [Dilantin Infatabs] 50 mg tablet,chewable 50 mg PO TID@08,14,20 diazepam 5-7.5-10 mg kit 10 mg [place] Q4H PRN (Reason: seizure activity) Qty: 1 0RF No Action (DME) [place] Neb Kit-Adult Misc See Rx Instructions .Route Qty: 1 0RF Rx Instructions: As directed (DME) Breathe Right Strip TOPICAL Rx Instructions: prn Discharge Orders: Discharge Order (Routine); Ordered 07/14/24 Ordered By: Frederic Joseph Referrals: Chiquita Adkins MD [Physician] - 1 week Marcelino Reddy MD, MBBS, MPH [Referring] - Marilyn Trivedi APN [Primary Care Provider] - 07/20/24 11:00 am Discharge Diet: As Directed Discharge Activity: Resume usual activity Patient Instructions: Ciprofloxacin (By mouth), Amoxicillin/Clavulanate Potassium (By mouth) (Augmentin, Augmentin..., COPD (Chronic Obstructive Pulmonary Disease) (DC), Altered Mental Status (ED), COPD Stoplight, Opioid Safety, Pain Management Activity Restrictions/Additional Instructions: -aspiration precautions -dysphagia level 4 diet, moderately thickened -follow up with pulmonary -follow up with neurology -Monitor for allergic reaction to ciprofloxacin Discharge Attestations Time Spent in Discharge Care*: greater than 30 min Quality Metrics Clinical Quality Measures [ No reported AMI, CVA or VTE this stay] Coding Level of Care Code 62667 Total time (in minutes) for Discharge: 45 Diagnoses Aspiration pneumonia of right lower lobe, unspecified aspiration pneumonia type J69.0 Aspiration pneumonia type: unspecified Laterality: right Lung location: lower lobe of lung Respiratory syncytial virus (RSV) J12.1 RSV infection type: pneumonia Benign essential HTN I10 Rheumatoid arthritis involving multiple sites, unspecified whether rheumatoid factor present M06.9 Rheumatoid arthritis location: multiple sites Rheumatoid factor presence: unspecified presence Altered mental status R41.82 Altered mental status type: unspecified Seizure R56.9 Hypoxia R09.02
[2024-07-14] MEDS: ciprofloxacin 500 mg Tablet 250 MG PO (10:44)
[2024-07-14] MEDS: methylPREDNISolone sod succ 125 mg/2 mL INJ IVP (10:44)
[2024-07-14 11:00] VITALS: BP 146/84; PULSE 84; RESP 18; TEMP 36.7
[2024-07-14 14:43] VITALS: BP 146/84; PULSE 84; RESP 18; TEMP 35.7; O2SAT 98
== END 2024-07-14 11:00 | disposition intermediate care facility (04) | DRG 177 ==
LOC: ER 16:39 → ER IP 16:56 → MEDSURG 18:16
PROVIDERS: Internal Medicine; Admitting Provider Internal Medicine; Emergency Provider Physician Assistant; PCP Nurse Practitioner Family; Visit Provider Family Medicine
DX: J69.0 Pneumonitis due to inhalation of food and vomit (principal); G93.41 Metabolic encephalopathy; J96.02 Acute respiratory failure with hypercapnia; J96.01 Acute respiratory failure with hypoxia; N39.0 Urinary tract infection, site not specified; J44.0 Chronic obstructive pulmonary disease with (acute) lower respiratory infection; J12.1 Respiratory syncytial virus pneumonia; I10 Essential (primary) hypertension; M06.9 Rheumatoid arthritis, unspecified; G40.409 Other generalized epilepsy and epileptic syndromes, not intractable, without status epilepticus; R13.10 Dysphagia, unspecified; B96.5 Pseudomonas (aeruginosa) (mallei) (pseudomallei) as the cause of diseases classified elsewhere; Z79.52 Long term (current) use of systemic steroids; Z87.820 Personal history of traumatic brain injury; F79 Unspecified intellectual disabilities; Z66 Do not resuscitate; E86.0 Dehydration
CPT/HCPCS: 36415; 36600; 51702; 51798; 71045; 80048; 80051; 80053; 81001; 82330; 82550; 82805; 83605; 83735; 83880; 85025; 86140; 87040; 87077; 87086; 87186; 87637; 92523; 92526; 92610; 93005; 94640; 94660; 94762; 96372; 96374; 96375; 97163; 97167; 99214; 99285; J0692; J0696; J1650; J1953; J2060; J2919; J3490; J7512

== ENCOUNTER 2024-08-12 11:20 | Inpatient (IN) | payer MEDICARE, MEDICAID, SELFPAY ==
[2024-08-12] VITALS (9 sets, daily range): BP systolic 109–127; BP diastolic 64–88; PULSE 60–80; RESP 14–18; TEMP 36.4–36.8; O2SAT 91–95; BMI 24.4; BMI 24.6
--- NOTE | 2024-08-12 12:08 | PC.PHAR ---
patient started a new antibiotic macrobid on 08/04/24
[2024-08-12 12:10] LABS: Add Urine Microscopic? NO
[2024-08-12 12:11] LABS: Basophils % 0.2 %; Eosinophils # 0.2 10^3/uL (0.0-0.8); Eosinophils % 1.7 %; Hematocrit 36.9 % (36-47); Lymphocytes # 1.5 10^3/uL (0.8-4.8); Lymphocytes % 11.4 %; Mean Corpuscular HGB Conc 30.6 g/dL (30-55); Mean Corpuscular Hemoglobin 32.8 pg (27-33); Mean Corpuscular Volume 107.3 fl (85-98); Mean Platelet Volume 9.6 fL (7.4-10.4); Monocytes # 0.5 10^3/uL (0.2-0.9); Monocytes % 4.1 %; Neutrophils # 10.49 10^3/uL (1.8-7.7); Neutrophils % 82.1 %; Nucleated Red Blood Cells % 0 %; Platelet Count 184 10^3/cmm (157-399); Red Blood Count 3.44 10^6/uL (3.85-5.65); Red Cell Distribution Width 13.6 % (12.1-15.1); White Blood Count 12.78 10^3/uL (3.29-11.43)
[2024-08-12 12:20] LABS: Alanine Aminotransferase 19 U/L (0-33); Albumin Level 3.4 g/dL (3.5-5.2); Alkaline Phosphatase 96 U/L (35-105); Anion Gap 14.3 (5-19); Aspartate Amino Transferase 18 U/L (0-32); Blood Urea Nitrogen 14 mg/dL (8-23); Calcium 8.5 mg/dL (8.5-10.5); Carbon Dioxide 25 mmol/L (22-29); Chloride 104 mmol/L (98-107); Creatinine Clr Calc Pharmacy 52.3658; Globulin 3.3 g/dL (1.3-4.6); Glomerular Filtration Rate 99.1 mL/min (90-130); Glucose 119 mg/dL (65-115); Osmolality Calculated 290 mOsm/kg (285-295); Potassium 4.3 mmol/L (3.5-5.1); Sodium 139 mmol/L (136-145); Total Bilirubin 0.4 mg/dL (0.15-1.2); Total Protein 6.7 g/dL (6.6-8.7)
[2024-08-12 12:45] LABS: Influenza A NEGATIVE (Negative); Influenza B NEGATIVE (Negative); Respiratory Syncytial Virus Ce NEGATIVE (Negative); SARS-CoV-2 PCR NEGATIVE (Negative)
[2024-08-12 12:53] LABS: Urine Color Orange (Yellow)
[2024-08-12 12:54] LABS: UA Manual Slide Review YES; UA Slide Review UA Slide Review Perf; Urine Appearance Slightly Cloudy (CLEAR)
[2024-08-12 12:56] LABS: Bacteria Urine TRACE /hpf; RBC Urine 0-4 /hpf (0-2); Squamous Epithelial Cell Urine 0-4 /hpf (0-5)
[2024-08-12 12:57] LABS: Add Urine Culture? No; Calcium Oxalate Crystals Urine 0-4 /hpf; Charge for UA Resulting for Rev; Hyaline Casts Urine 0-4 /lpf; Mucus Urine TRACE /hpf
--- NOTE | 2024-08-12 13:13 | W.ED.WEAKNES ---
HPI - Weakness General: Chief complaint: Weakness Stated complaint: lethargic, n/v/d, cough Time Seen by Provider: 08/12/24 11:59 History of Present Illness: 68-year-old female presents emergency room with nausea vomiting diarrhea and a cough. She has been very lethargic. She lives in assisted living and failure to nonmedical caregiver with her here today she tells me that Saturday the patient was at her normal baseline but states for the last 2 days has not been her normal self normally she can stand that she can assist with transfers but cannot ambulate she usually verbal and able to hold a conversation she is poorly responsive in the exam room today cannot get her to respond to me verbally she will open her eyes to verbal stimuli but nothing more. Staff report on occasion she will use up to 2 L by nasal cannula but not is not chronically on oxygen. They are concerned that she may have C. difficile she has had mucousy stools last few days she has completed 2 [id number] course of antibiotics and since being hospitalized last month. No hematochezia. Staff relates she had a positive C. difficile through [facility] in [place] yesterday. Patient has a history of seizure disorders been taking all of her regular medicines recently. Her medicines are controlled by the staff so she has not taken any extra they do not believe. No evidence of seizures recently that they have documented [facility] ED PFSH: Medical History Acquired intellectual disability Dehydration Altered mental status Rheumatoid arthritis Seizures Brain injury Urinary retention Encephalopathy chronic Generalized epilepsy Epilepsy Surgical History History of craniotomy Family History Other No pertinent family history Social History Smoking and tobacco/nicotine status: former use of tobacco/nicotine Physical Exam Const: GENERAL APPEARANCE: cooperative HENMT: COMMON NORMALS: normocephalic and atraumatic HEAD & SCALP: normocephalic and atraumatic Resp: COMMON NORMALS: normal respiratory effort, No retractions, No use of accessory muscles and clear to auscultation bilaterally AUSCULTATION: clear to auscultation bilaterally Cardio: COMMON NORMALS: regular rate, regular rhythm and No murmurs present (Cardio) RATE: regular rate RHYTHM: regular rhythm GI: COMMON NORMALS: Soft to palpation and No hepatosplenomegaly present AUSCULTATION: Yes normoactive bowel sounds PALPATION: Yes Soft to palpation, No Tenderness to palpation present (GI), No Guarding due to palpation present (GI) and Yes No hepatosplenomegaly present Extremity: COMMON NORMALS: normal to inspection, capillary refill normal, no clubbing, cyanosis or edema, no calf tenderness and no pedal edema Skin: COMMON NORMALS: no rashes or lesions noted GENERAL SKIN EXAM: no rashes or lesions noted Course Vital Signs: Vital signs: Vital Signs Temperature 97.9 F 08/12/24 11:55 Pulse Rate 69 08/12/24 15:26 Respiratory Rate 18 08/12/24 13:40 Blood Pressure 112/67 08/12/24 15:26 Pulse Oximetry 94 08/12/24 15:26 Oxygen Delivery Me thod Nasal Cannula 08/12/24 15:26 Oxygen Flow Rate 2 08/12/24 13:40 MDM - Weakness Medical Decision Making Requiring oxygen. Dilantin level pending. As patient does appear to still have a cystitis start meropenem last culture showed Pseudomonas admit for encephalopathy hypoxia. Chest x-ray today negative. Dilantin level pending Lab Data 08/12/24 11:56 08/12/24 11:56 Radiology Impressions Chest X-Ray 08/12/24 13:17 Impression: Cardiomegaly and atherosclerosis. Abdomen/Pelvis CT 08/12/24 13:18 IMPRESSION: 1. Very mild submucosal edema in the distal colon. No significant pericolonic stranding or obstruction. 2. No ascites or free air. 3. Breathing motion artifact. 4. Vallecillo catheter in a nondistended bladder. 5. No renal obstruction. Head CT 08/12/24 13:18 IMPRESSION: 1. No acute intracranial hemorrhage or edema. 2. 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 3. Severe cerebellar atrophy. 4. Moderate small vessel ischemic disease. Laboratory Results WBC 12.78 10^3/uL (3.29-11.43) H 08/12/24 11:56 RBC 3.44 10^6/uL (3.85-5.65) L 08/12/24 11:56 Hgb 11.30 g/dL (11.27-16.99) 08/12/24 11:56 Hct 36.9 % (36-47) 08/12/24 11:56 MCV 107.3 fl (85-98) H 08/12/24 11:56 MCH 32.8 pg (27-33) 08/12/24 11:56 MCHC 30.6 g/dL (30-55) 08/12/24 11:56 RDW 13.6 % (12.1-15.1) 08/12/24 11:56 Plt Count 184 10^3/cmm (157-399) 08/12/24 11:56 MPV 9.6 fL (7.4-10.4) 08/12/24 11:56 Neut % (Auto) 82.1 % 08/12/24 11:56 Lymph % (Auto) 11.4 % 08/12/24 11:56 [place] % (Auto) 4.1 % 08/12/24 11:56 Eos % (Auto) 1.7 % 08/12/24 11:56 Baso % (Auto) 0.2 % 08/12/24 11:56 Neut # (Auto) 10.49 10^3/uL (1.8-7.7) H 08/12/24 11:56 Lymph # (Auto) 1.5 10^3/uL (0.8-4.8) 08/12/24 11:56 [place] # (Auto) 0.5 10^3/uL (0.2-0.9) 08/12/24 11:56 Eos # (Auto) 0.2 10^3/uL (0.0-0.8) 08/12/24 11:56 Baso # (Auto) 0.0 10^3/uL (0.0-0.1) 08/12/24 11:56 Nucleated RBC % (auto) 0 % 08/12/24 11:56 Nucleated RBCs # 0.0 /100WBC 08/12/24 11:56 Specimen Type Arterial 08/12/24 13:50 Sample Site Radial, right 08/12/24 13:50 ABG pH 7.34 (7.35-7.45) L 08/12/24 13:50 ABG pCO2 48.1 mmHg (35-45) H 08/12/24 13:50 ABG pO2 85.3 mmHg (80.0-100.0) 08/12/24 13:50 ABG PO2/FiO2 Ratio 304 08/12/24 13:50 ABG HCO3 25.6 mmol/L (22-26) 08/12/24 13:50 ABG O2 Saturation 94.1 08/12/24 13:50 ABG Base Excess -0.6 mmol/L (-2.0-2.0) 08/12/24 13:50 Gustavo Test Pos 08/12/24 13:50 A-a O2 Gradient 6.6 mmHg (5-10) 08/12/24 13:50 Hematocrit 33.7 % (37-47) L 08/12/24 13:50 Hgb O2 Saturation 89.3 % (95-100) L 08/12/24 13:50 Carboxyhemoglobin 1.2 %THgb (0.4-20.1) 08/12/24 13:50 Methemoglobin 3.9 % (0.4-1.5) H 08/12/24 13:50 Total Hemoglobin 11.0 g/dL (12-16) L 08/12/24 13:50 Sodium 141.0 mmol/L (131-143) 08/12/24 13:50 Potassium 4.0 mmol/L (3.5-5.0) 08/12/24 13:50 Glucose 109.0 mg/dL (70-115) 08/12/24 13:50 Ionized Calcium 1.2 mmol/L (1.1-1.4) 08/12/24 13:50 O2 Delivery Device Nc 08/12/24 13:50 O2 Liters/Min 2.0 % 08/12/24 13:50 FiO2 28.0 % 08/12/24 13:50 Control Room Technician ID Amh 08/12/24 13:50 Sodium 139 mmol/L (136-145) 08/12/24 11:56 Potassium 4.3 mmol/L (3.5-5.1) 08/12/24 11:56 Chloride 104 mmol/L (98-107) 08/12/24 11:56 Carbon Dioxide 25 mmol/L (22-29) 08/12/24 11:56 Anion Gap 14.3 (5-19) 08/12/24 11:56 BUN 14 mg/dL (8-23) 08/12/24 11:56 Creatinine 0.6 mg/dL (0.5-0.9) 08/12/24 11:56 GFR Calculation 99.1 mL/min (90-130) 08/12/24 11:56 Glucose 119 mg/dL (65-115) H 08/12/24 11:56 Calculated Osmolality 290 mOsm/kg (285-295) 08/12/24 11:56 Lactic Acid 1.2 mmol/L (0.5-2.2) 08/12/24 11:56 Calcium 8.5 mg/dL (8.5-10.5) 08/12/24 11:56 Total Bilirubin 0.4 mg/dL (0.15-1.2) 08/12/24 11:56 AST 18 U/L (0-32) 08/12/24 11:56 ALT 19 U/L (0-33) 08/12/24 11:56 Alkaline Phosphatase 96 U/L (35-105) 08/12/24 11:56 Troponin T Baseline 18 ng/L (0-10) H 08/12/24 11:56 Troponin T 120 Minute 14.78 ng/L (0-10) H 08/12/24 14:22 Delta Troponin T -3.22 ABS# (0-10) L 08/12/24 14:22 NT-Pro-B Natriuret Pep 188 pg/mL (0-125) H 08/12/24 11:56 Total Protein 6.7 g/dL (6.6-8.7) 08/12/24 11:56 Albumin 3.4 g/dL (3.5-5.2) L 08/12/24 11:56 Globulin 3.3 g/dL (1.3-4.6) 08/12/24 11:56 HCG, Qual Negative (Negative) 08/12/24 12:00 Urine Color [place] (Yellow) A 08/12/24 12:00 Urine Appearance Slightly cloudy (CLEAR) 08/12/24 12:00 Urine pH Textile Finisher 08/12/24 12:00 Ur Specific [place] Not Reportable 08/12/24 12:00 Urine Protein Not Reportable 08/12/24 12:00 Urine Glucose (UA) Not Reportable 08/12/24 12:00 Urine Ketones Not Reportable 08/12/24 12:00 Urine Blood Not Reportable 08/12/24 12:00 Urine Nitrate Not Reportable 08/12/24 12:00 Urine Bilirubin Not Reportable 08/12/24 12:00 Urine Urobilinogen Not Reportable 08/12/24 12:00 Ur Leukocyte Esterase Not Reportable 08/12/24 12:00 Urine RBC 0-4 /hpf (0-2) H 08/12/24 12:00 Urine WBC 5-10 /hpf (0-5) H 08/12/24 12:00 Ur Squamous Epith Cells 0-4 /hpf (0-5) H 08/12/24 12:00 Calcium Oxalate Crystal 0-4 /hpf H 08/12/24 12:00 Amorphous Sediment Not Reportable 08/12/24 12:00 Urine Bacteria Trace /hpf (NONE) 08/12/24 12:00 Hyaline Casts 0-4 /lpf H 08/12/24 12:00 Urine Mucus Trace /hpf 08/12/24 12:00 Influenza A (PCR) Negative (Negative) 08/12/24 11:56 Influenza Type B (PCR) Negative (Negative) 08/12/24 11:56 RSV (PCR) Negative (Negative) 08/12/24 11:56 SARS-CoV-2 (PCR) Negative (Negative) 08/12/24 11:56 All radiology interpretation(s) finalized by discharge Discharge Plan Discharge Patient Disposition: Placed in Observation Clinical Impression: Hypoxia, Encephalopathy, Benign essential HTN, Acute cystitis UTI (urinary tract infection) Qualifiers: Urinary tract infection type: acute cystitis Hematuria presence: without hematuria Qualified Code(s): N30.00 - Acute cystitis without hematuria COPD (chronic obstructive pulmonary disease) Qualifiers: COPD type: unspecified COPD Qualified Code(s): J44.9 - Chronic obstructive pulmonary disease, unspecified Clinical Impression: (Ruled Out): Elevated brain natriuretic peptide (BNP) level Condition: Stable Prescriptions: No Action folic acid 1 mg tablet 1 mg PO DAILY@08 montelukast [Singulair] 10 mg tablet 10 mg PO DAILY@08 multivitamin Tablet 1 tab PO DAILY@08 pantoprazole [Protonix] 40 mg tablet,delayed release (DR/EC) 40 mg PO DAILY@08 zonisamide [Zonegran] 100 mg capsule 100 mg PO BID@08,20 phenazopyridine [Azo Urinary Pain Relief] 95 mg tablet 190 mg PO BID PRN (Reason: Bladder Spasms) simethicone [Gas-X Extra Strength] 125 mg capsule 125 mg PO Q8H PRN (Reason: Stomach Upset) tamsulosin [Flomax] 0.4 mg capsule 0.4 mg PO BID sucralfate 100 mg/mL suspension 10 ml PO BID prednisone 5 mg tablet 5 mg PO QAM loperamide [Anti-Diarrheal (loperamide)] 2 mg tablet 2 mg PO QID PRN (Reason: Diarrhea) buspirone 10 mg tablet 10 mg PO TID clonazepam 0.25 mg tablet,disintegrating 0.25 mg PO BID budesonide-formoterol 80-4.5 mcg/actuation HFA aerosol inhaler 2 puff INHALATION BID lacosamide [Vimpat] 150 mg tablet 150 mg PO BID albuterol sulfate 5 mg/mL solution for nebulization 5 mg inhalation TID PRN (Reason: shortness of breath or wheezing) Qty: 600 0RF acetaminophen 325 mg tablet 650 mg PO Q6H PRN (Reason: pain or elevated temp) promethazine-DM 6.25-15 mg/5 mL syrup 5 ml PO Q4H PRN (Reason: evening cough) triamcinolone acetonide 0.1 % cream 1 applic TOPICAL BID PRN (Reason: rash or itching) cyanocobalamin (vitamin B-12) 1,000 mcg/mL solution 1,000 mcg IM Q30D levetiracetam 500 mg tablet 2,000 mg PO BID vitamin B complex Tablet 1 tab PO .DAILY@12PM polyethylene glycol 3350 [Miralax] 17 gram Powder In Packet 17 g PO EVERY OTHER DAY fluoxetine 20 mg Tablet 20 mg PO DAILY@12 Rx Instructions: along with 10mg to=30 mg total Acidophilus Tablet,Chewable 1 tab PO DAILY@08 albuterol sulfate 90 mcg/actuation Hfa Aerosol Inhaler 2 puff INHALATION QID PRN (Reason: Shortness Of Breath) Nutritional Drink Liquid 1 ea PO TID@09,13,19 diclofenac sodium 1 % Gel 4 g TOPICAL QID PRN (Reason: Pain/arthritis) famotidine 20 mg tablet 20 mg PO BID Systane (propylene glycol) 0.4-0.3 % Drops 1 drp ophthalmic (eye) TID Rx Instructions: both eyes fluoxetine 10 mg capsule 10 mg PO DAILY@12 Rx Instructions: along with 20mg to=30 mg total phenytoin [Dilantin Infatabs] 50 mg tablet,chewable 50 mg PO TID@08,14,20 diazepam 5-7.5-10 mg kit 10 mg MN Q4H PRN (Reason: seizure activity) Qty: 1 0RF nitrofurantoin macrocrystal 100 mg capsule 100 mg PO DAILY Referrals: Marilyn Trivedi APN [Primary Care Provider] - Print Language: Romanian Coding Level of Care Code ED Wardrobe Mistress for Chg Fwd Related Data Home Medications ?Medication ?Instructions ?Recorded ?Confirmed folic acid 1 mg tablet 1 mg PO DAILY@08 11/25/19 08/12/24 montelukast 10 mg tablet 10 mg PO DAILY@11/25/19 08/12/24 (Singulair) multivitamin 1 tab PO DAILY@11/25/19 08/12/24 pantoprazole 40 mg tablet,delayed 40 mg PO DAILY@11/25/19 08/12/24 release (Protonix) phenazopyridine 95 mg tablet (Azo 190 mg PO BID PRN Bladder Spasms 11/25/19 08/12/24 Urinary Pain Relief) simethicone 125 mg capsule (Gas-X 125 mg PO Q8H PRN Stomach Upset 11/25/19 08/12/24 Extra Strength) zonisamide 100 mg capsule 100 mg PO BID@11/25/19 08/12/24 (Zonegran) Lactobacillus acidophilus 1 tab PO DAILY@10/15/21 08/12/24 (Acidophilus chewable tablet) albuterol sulfate 90 mcg/actuation 2 puff inhalation QID PRN 10/15/21 08/12/24 aerosol inhaler Shortness Of Breath diclofenac sodium 1 % topical gel 4 g topical QID PRN Pain/arthritis 10/15/21 08/12/24 fluoxetine 20 mg tablet 20 mg PO DAILY@12 10/15/21 08/12/24 food supplemt, lactose-reduced 1 ea PO TID@,,10/15/21 08/12/24 (Nutritional Drink oral liquid) famotidine 20 mg tablet 20 mg PO BID 06/01/22 08/12/24 fluoxetine 10 mg capsule 10 mg PO DAILY@12 06/07/22 08/12/24 peg 400-propylene glycol 0.4 %-0.3 1 drp ophthalmic (eye) TID 06/07/22 08/12/24 % eye drops (Systane (propylene glycol)) phenytoin 50 mg chewable tablet 50 mg PO TID@08,14,20 06/07/22 08/12/24 (Dilantin Infatabs) budesonide-formoterol HFA 80 2 puff inhalation BID 12/04/23 08/12/24 mcg-4.5 mcg/actuation aerosol inhaler buspirone 10 mg tablet 10 mg PO TID 12/04/23 08/12/24 clonazepam 0.25 mg disintegrating 0.25 mg PO BID 12/04/23 08/12/24 tablet lacosamide 150 mg tablet (Vimpat) 150 mg PO BID 12/04/23 08/12/24 loperamide 2 mg tablet 2 mg PO QID PRN Diarrhea 12/04/23 08/12/24 (Anti-Diarrheal (loperamide)) prednisone 5 mg tablet 5 mg PO QAM 12/04/23 08/12/24 sucralfate 100 mg/mL oral 10 ml PO BID 12/04/23 08/12/24 suspension tamsulosin 0.4 mg capsule (Flomax) 0.4 mg PO BID 07/06/24 08/12/24 acetaminophen 325 mg tablet 650 mg PO Q6H PRN pain or elevated 07/08/24 08/12/24 temp cyanocobalamin (vitamin B-12) 1,000 mcg IM Q30D 07/08/24 08/12/24 1,000 mcg/mL injection solution levetiracetam 500 mg tablet 2,000 mg PO BID 07/08/24 08/12/24 polyethylene glycol 3350 17 gram 17 g PO EVERY OTHER DAY 07/08/24 08/12/24 oral powder packet (Miralax) promethazine-DM 6.25 mg-15 mg/5 mL 5 ml PO Q4H PRN evening cough 07/08/24 08/12/24 oral syrup triamcinolone acetonide 0.1 % 1 applic topical BID PRN rash or 07/08/24 08/12/24 topical cream itching vitamin B complex 1 tab PO .DAILY@12PM 07/08/24 08/12/24 nitrofurantoin macrocrystal 100 mg 100 mg PO DAILY 08/12/24 08/12/24 capsule Previous Rx's ?Medication ?Instructions ?Recorded albuterol sulfate 5 mg/mL(0.5 %) 5 mg inhalation TID PRN shortness 03/04/24 solution for nebulization of breath or wheezing #600 mL diazepam 5 mg-7.5 mg-10 mg rectal 10 mg MN Q4H PRN seizure activity 04/13/24 kit 2 doses #1 ea Allergies Allergy/AdvReac Type Severity Reaction Status Date / Time aspirin Allergy Unknown Verified 07/08/24 19:38 Influenza Virus Vaccines Allergy Unknown Verified 07/08/24 19:38 levofloxacin (From Levaquin) Allergy ALGY-Hives Verified 07/08/24 19:38 vancomycin Allergy ALGY-Hives Verified 07/08/24 19:38
--- NOTE | 2024-08-12 13:17 | XR_ITS ---
WS: [id number] Portable AP upright chest, 08/12/2024 Clinical Data: dyspnea/cough Comparison: Portable chest, 07/11/2024 Findings: No nodules, masses or effusions are seen. The heart is enlarged. The pulmonary vascularity is not increased. No pneumonia or pneumothorax is seen. The aortic arch and descending thoracic aorta show tortuosity. There is a generator overlying the left axilla unchanged. There are small surgical wires in the left supraclavicular region. Monitor leads are on the chest wall. XR/XR chest 1V portable [id number] Impression: Cardiomegaly and atherosclerosis.
--- NOTE | 2024-08-12 13:18 | CT_ITS ---
WS: [id number] CT ABDOMEN AND PELVIS NONCONTRAST HISTORY: Abdominal pain/Diarrhea TECHNIQUE: Imaging performed through the abdomen and pelvis. Coronal and sagittal reformats are submitted. All CT scans at [facility] use at least one of these dose optimization techniques: automated exposure control; mA and/or kV adjustment per patient size (includes targeted exams where dose is matched to clinical indication); or iterative reconstruction. DLP: 571.10 mGy.cm COMPARISON: 06/02/2022 Lower thorax: Dependent changes at the lung bases. Bilateral lower lobe bronchiectasis and bronchial thickening. Mild cardiomegaly. Small hiatal hernia. Liver: Normal size liver. No mass or bile duct dilatation. Gallbladder: Normal gallbladder. No pericholecystic fluid or cholelithiasis. No gallbladder wall thickening. Pancreas: Marked pancreatic atrophy and fatty replacement. Spleen: Normal. Adrenal glands: Normal. No mass. Right kidney: Normal size kidney with no mass or hydronephrosis. Left kidney: Normal size kidney with no mass or hydronephrosis. Aorta: Mild atherosclerosis abdominal aorta with no aneurysm. No free fluid, intraperitoneal air or significant lymphadenopathy. GI tract: No GI tract obstruction. Stomach is not dilated. No small bowel obstruction. Mild submucosal edema in the distal colon. No significant pericolonic edema or inflammation. Abdominal wall: Negative. No hernia. Pelvis: Nondistended bladder. Vallecillo catheter is present in the bladder. No free fluid or adenopathy. Osseous structures: Diffuse osteopenia. Numerous osteoporotic compression fractures in the visualized thoracic and lumbar spine. CT/CT abdomen pelvis wo con [id number] IMPRESSION: 1. Very mild submucosal edema in the distal colon. No significant pericolonic stranding or obstruction. 2. No ascites or free air. 3. Breathing motion artifact. 4. Vallecillo catheter in a nondistended bladder. 5. No renal obstruction.
--- NOTE | 2024-08-12 13:18 | CT_ITS ---
WS: [id number] CT HEAD NONCONTRAST HISTORY: Encephalopathy TECHNIQUE: Contiguous axial imaging performed through the brain. Bone and soft tissue windows. Sagittal and coronal reformats reviewed. All CT scans at [facility] use at least one of these dose optimization techniques: automated exposure control; mA and/or kV adjustment per patient size (includes targeted exams where dose is matched to clinical indication); or iterative reconstruction. DLP: 1085.96 mGy.cm COMPARISON: 04/06/2024 No acute intracranial hemorrhage, midline shift or mass effect. Severe cerebellar atrophy. Large area of encephalomalacia involving the LEFT frontal temporal lobe. Ex vacuo dilatation of the adjacent LEFT lateral ventricle. Moderate small vessel disease. Ventricles: Ex vacuo dilatation of the LEFT lateral ventricle. No inferior displacement of the cerebellar tonsils. Paranasal sinuses: Air-fluid levels and frothy secretions in the sphenoid sinuses. Remote nasal bone fractures. Mastoid air cells: Fluid bilaterally in the mastoid air cells. Calvarium and scalp: LEFT frontal, temporal and parietal craniotomy. CT/CT head wo con* [id number] IMPRESSION: 1. No acute intracranial hemorrhage or edema. 2. Large LEFT frontal temporal infarct with encephalomalacia of the lateral ve ntricle. 3. Severe cerebellar atrophy. 4. Moderate small vessel ischemic disease.
[2024-08-12 13:45] LABS: Lactic Sepsis W/Reflex 1.2 mmol/L (0.5-2.2)
[2024-08-12 13:47] LABS: HCG Qualitative Urine. Negative (Negative)
--- NOTE | 2024-08-12 13:48 | PC.NURSE ---
per pt's caregiver, CDIFF sample that was done prior to visit today just came back positive. Dr. Alexander notified
--- NOTE | 2024-08-12 13:52 | PC.NURSE ---
checked pt depends and asked about stool sample, per caregiver pt is not reliable to state when she can use commode, typically uses depends and states pt usually only has one BM a day. unable to get stool sample at this time d/t this
[2024-08-12 13:54] LABS: NT Pro B Type Natriuretic Pept 188 pg/mL (0-125)
[2024-08-12 14:01] LABS: ABG PCO2 48.1 mmHg (35-45); ABG PH Result 7.34 (7.35-7.45); Alveolar-Arterial Oxygen Gradi 6.6 mmHg (5-10); Arterial Blood Gas Hematocrit 33.7 % (37-47); Base Excess ABG -0.6 mmol/L (-2.0-2.0); Blood Gas Allen Test Pos; Blood Gas Operator Identificat AMH; Blood Gas Sample Site Radial, right; Blood Gas Sample Type Arterial; Carboxyhemoglobin 1.2 %THgb (0.4-20.1); HCO3 ABG 25.6 mmol/L (22-26); HGB O2 Sat 89.3 % (95-100); Ionized Calcium Level - ABG 1.2 mmol/L (1.1-1.4); Methemoglobin 3.9 % (0.4-1.5); Oxygen Device NC; Oxygen Saturation ABG 94.1; PO2 ABG 85.3 mmHg (80.0-100.0); PO2 FiO2 Ratio Arterial Blood 304
--- NOTE | 2024-08-12 14:28 | ECG_ITS ---
[facility] Test Date: 2024-08-12 Pat Name: Dasia Brian Department: Room: Gender: Female [employer] Manager: : 1955 Requested By: Gil Pettit Order Number: [id number] Cristian MD: Florida Rivera M.D. Measurements Intervals [place] Rate: 70 P: 9 WA: 178 QRS: 38 QRSD: 81 T: 61 QT: 407 QTc: 442 Interpretive Statements SINUS RHYTHM LOW QRS VOLTAGE IN PRECORDIAL LEADS [QRS DEFLECTION < 1.0 mV IN CHEST LEADS] Compared to ECG 07/08/2024 14:16:41 Low QRS voltage now present Electronically Signed On 08-12-2024 22:00:16 CDT by Florida Rivera M.D. [email or web address]
[2024-08-12 14:35] LABS: Troponin(5th) Baseline 18 ng/L (0-10)
[2024-08-12 14:49] LABS: Troponin 5 2HR 14.78 ng/L (0-10)
[2024-08-12 14:50] LABS: Troponin 5 2HR Delta -3.22 ABS# (0-10)
--- NOTE | 2024-08-12 15:01 | PC.NURSE ---
checked pt depends, no bowel movement at this time
[2024-08-12] MEDS: MEROPENEM 2,000 MG in sodium chloride 0.9% (plus) 50 ML 100 MG IV ×2 (15:50→23:57)
--- NOTE | 2024-08-12 16:04 | ECG_ITS ---
[facility] Test Date: 2024-08-12 Pat Name: Dasia Brian Department: Room: 258 Gender: Female [employer]cher [employer]ling [employer]: : 1955 Requested By: Gil Pettit Order Number: [id number] Cristian MD: Florida Rivera M.D. Measurements Intervals [place] Rate: 73 P: 60 IA: 198 QRS: 44 QRSD: 74 T: 75 QT: 408 QTc: 451 Interpretive Statements SINUS RHYTHM Compared to ECG 08/12/2024 14:28:04 No significant changes Electronically Signed On 08-12-2024 22:13:13 CDT by Florida Rivera M.D. [email or web address]
--- NOTE | 2024-08-12 16:45 | PM.HP ---
Providers/Chief Complaint Admitting Physician: Ajit Roberts MD Primary Care Provider: Marilyn Trivedi APN Chief Complaint: lethargic, n/v/d, cough History of Present Illness History taken through [facility]'s caregiver from [facility] who is at bedside. Dasia Brian is a 68 [facility] female [facility] resident with past medical history of seizure disorder, COPD who at baseline is able to stand with minimal assistance, is alert to self and follows some simple directions with most recent admission in the hospital from 07/08 - 07/14 for RSV and aspiration pneumonia was brought into the ER today because of altered mental status and not waking up for last 24 to 48 hours worsening since today morning. As per the caregiver patient has been having multiple episodes of foul-smelling diarrhea for over a week. Her mentation has been getting worse for last 2 to 3 days with not waking up since today morning though she could be awakened to give her medications. She last took her medications today morning as per the caregiver at bedside. As per the caregiver she has history of recurrent breakthrough seizures. Gets very frequent breakthrough seizures with last seizure over the weekend. Patient has started following up with new neurologist at [facility]. Denies any changes in medications recently. As per the caregiver she was tested for C. difficile at [facility] yesterday and the result was reported positive few hours ago. Patient has been getting [facility]mod[facility] at the [facility]. No episodes of vomiting. Usually needs oxygen only as needed. Currently on 2 L saturating over 94%. Review of Systems General: Reports: ROS unobtainable due to mental status Medications/Allergies Home Medications ?Medication ?Instructions ?Recorded ?Confirmed ?Last Taken ?Type folic acid 1 mg tablet 1 mg PO DAILY@11/25/19 08/12/24 08/12/24 History montelukast 10 mg tablet 10 mg PO DAILY@11/25/19 08/12/24 08/12/24 History (Singulair) multivitamin 1 tab PO DAILY@11/25/19 08/12/24 08/12/24 History pantoprazole 40 mg tablet,delayed 40 mg PO DAILY@11/25/19 08/12/24 08/12/24 History release (Protonix) phenazopyridine 95 mg tablet (Azo 190 mg PO BID PRN Bladder Spasms 11/25/19 08/12/2407/08/25 History Urinary Pain Relief) simethicone 125 mg capsule (Gas-X 125 mg PO Q8H PRN Stomach Upset 11/25/19 08/12/24 Unknown History Extra Strength) zonisamide 100 mg capsule 100 mg PO BID@08,20 11/25/19 08/12/24 08/12/24 History (Zonegran) Lactobacillus acidophilus 1 tab PO DAILY@08 10/15/21 08/12/24 08/12/24 History (Acidophilus chewable tablet) albuterol sulfate 90 mcg/actuation 2 puff inhalation QID PRN 10/15/21 08/12/24 08/12/24 History aerosol inhaler Shortness Of Breath diclofenac sodium 1 % topical gel 4 g topical QID PRN Pain/arthritis 10/15/21 08/12/24 Unknown History fluoxetine 20 mg tablet 20 mg PO DAILY@12 10/15/21 08/12/24 08/11/24 History food supplemt, lactose-reduced 1 ea PO TID@,,10/15/21 08/12/24 08/12/24 History (Nutritional Drink oral liquid) famotidine 20 mg tablet 20 mg PO BID 06/01/22 08/12/24 08/12/24 History fluoxetine 10 mg capsule 10 mg PO DAILY@12 06/07/22 08/12/24 08/11/24 History peg 400-propylene glycol 0.4 %-0.3 1 drp ophthalmic (eye) TID 06/07/22 08/12/24 08/12/24 History % eye drops (Systane (propylene glycol)) phenytoin 50 mg chewable tablet 50 mg PO TID@08,,06/07/22 08/12/24 08/12/24 History (Dilantin Infatabs) budesonide-formoterol HFA 80 2 puff inhalation BID 12/04/23 08/12/24 08/12/24 History mcg-4.5 mcg/actuation aerosol inhaler buspirone 10 mg tablet 10 mg PO TID 12/04/23 08/12/24 08/12/24 History clonazepam 0.25 mg disintegrating 0.25 mg PO BID 12/04/23 08/12/24 08/12/24 History tablet lacosamide 150 mg tablet (Vimpat) 150 mg PO BID 12/04/23 08/12/24 08/12/24 History loperamide 2 mg tablet 2 mg PO QID PRN Diarrhea 12/04/23 08/12/24 Unknown History (Anti-Diarrheal (loperamide)) prednisone 5 mg tablet 5 mg PO QAM 12/04/23 08/12/24 08/12/24 History sucralfate 100 mg/mL oral 10 ml PO BID 12/04/23 08/12/24 08/12/24 History suspension albuterol sulfate 5 mg/mL(0.5 %) 5 mg inhalation TID PRN shortness 03/04/24 08/12/24 08/12/24 Rx solution for nebulization of breath or wheezing #600 mL diazepam 5 mg-7.5 mg-10 mg rectal 10 mg MS Q4H PRN seizure activity 04/13/24 08/12/24 Unknown Rx kit 2 doses #1 ea tamsulosin 0.4 mg capsule (Flomax) 0.4 mg PO BID 07/06/24 08/12/24 08/12/24 History acetaminophen 325 mg tablet 650 mg PO Q6H PRN pain or elevated 07/08/24 08/12/24 08/12/24 History temp cyanocobalamin (vitamin B-12) 1,000 mcg IM Q30D 07/08/24 08/12/24 08/12/24 History 1,000 mcg/mL injection solution levetiracetam 500 mg tablet 2,000 mg PO BID 07/08/24 08/12/24 08/12/24 History polyethylene glycol 3350 17 gram 17 g PO EVERY OTHER DAY 07/08/24 08/12/24 08/11/24 History oral powder packet (Miralax) promethazine-DM 6.25 mg-15 mg/5 mL 5 ml PO Q4H PRN evening cough 07/08/24 08/12/24 Unknown History oral syrup triamcinolone acetonide 0.1 % 1 applic topical BID PRN rash or 07/08/24 08/12/24 08/12/24 History topical cream itching vitamin B complex 1 tab PO .DAILY@12PM 07/08/24 08/12/24 08/11/24 History nitrofurantoin macrocrystal 100 mg 100 mg PO DAILY 08/12/24 08/12/24 Unknown History capsule Allergies Allergy/AdvReac Type Severity Reaction Status Date / Time aspirin Allergy Unknown Verified 07/08/24 19:38 Influenza Virus Vaccines Allergy Unknown Verified 07/08/24 19:38 levofloxacin (From Levaquin) Allergy ALGY-Hives Verified 07/08/24 19:38 vancomycin Allergy ALGY-Hives Verified 07/08/24 19:38 PFSH Acute PFSH: Medical History (Updated 08/12/24 @ 17:34 by Ajit Roberts MD) Chronic indwelling Vallecillo catheter Encephalomalacia without cerebral infarction Altered mental status Pseudomonas urinary tract infection Elevated Dilantin level Acquired intellectual disability Dehydration Rheumatoid arthritis Seizures Brain injury Urinary retention Encephalopathy chronic Generalized epilepsy Epilepsy Surgical History History of craniotomy Family History Other No pertinent family history Social History Smoking and tobacco/nicotine status: former use of tobacco/nicotine Vitals/I&O/Wt Last Vital Signs Temp 97.9 F 08/12/24 11:55 Pulse 70 08/12/24 16:14 Resp 18 08/12/24 13:40 BP 112/67 08/12/24 16:14 Pulse Ox 94 08/12/24 16:14 O2 Del Method Nasal Cannula 08/12/24 15:26 O2 Flow Rate 2 08/12/24 13:40 Weight last 48 hrs Weight 56.699 kg Physical Exam Narrative: General: No acute distress, somnolent, GCS-E2M2V1, maintaining sat on 2L HEENT: PERRLA, pupils bilaterally equal and reactive Chest: Normal vesicular breath sounds, no added sounds, equal good air entry bilaterally CVS: S1-S2 regular, no murmurs, no tachycardia, no gallops, no rubs Abdomen: Soft, nontender, no organomegaly, bowel sounds present Urinary Catheter Management: Vallecillo: Cath Placed During This Visit: yes Urinary Catheter Date of Insertion: 08/12/24 Urinary Catheter Time of Insertion: 12:08 Data 08/12/24 11:56 08/12/24 11:56 Micro: Microbiology 08/12/24 14:09 Blood Culture - Preliminary Blood SPECIMEN COLLECTED 08/12/24 14:04 Blood Culture - Preliminary Blood SPECIMEN COLLECTED A&P Assessment and plan (1) Somnolence: (2) Altered mental status: Qualifiers: Altered mental status type: transient alteration of awareness Qualified Code(s): R40.4 - Transient alteration of awareness (3) Pseudomonas urinary tract infection: (4) Generalized epilepsy: (5) Brain injury: (6) 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 difficile positive on the stool studies at outside clinic yesterday. Altered mental status/somnolence: Unknown etiology. Could be multifactorial. Cannot rule out postictal state as patient has a history of seizure disorder and breakthrough seizures in the past. Check Dilantin level, lacosamide level, Keppra level. Check prolactin. Continue medication at home dose. Will switch from oral to IV to facilitate patient getting medications. Fall precaution, seizure precaution, aspiration precaution. Could be infectious metabolic encephalopathy given patient's history of recurrent UTI most recently with Pseudomonas and C. difficile tested positive on 08/11. Check blood culture, urine analysis, urine culture as needed, recheck stool studies, respiratory viral panel. Check urine drug screen. Empirically start on IV meropenem 2 g every 8 hourly as per culture sensitivities from the past. Patient is allergic to Levaquin moreover would like to avoid as it would decrease seizure threshold. Start on Dificid 200 mg twice daily. Hold off on Imodium. No electrolyte abnormality. Liver functions within normal limits. Appreciate CT head without any new abnormality. Does show chronic left frontal encephalomalacia. Normal saline at 75 cc/h. Check lactic acid level, TSH, vitamin B12, folate level, iron panel, HbA1c, lipid panel. Could be in setting of polypharmacy. Patient is on multiple seizure medications as above. Is also on BuSpar 3 times daily and clonazepam 0.5 twice daily. For now continue home dose of BuSpar. Hold off on clonazepam. IV Ativan 1 mg 30-minute as needed for seizure disorder. Change home dose of fluoxetine to 20 mg every afternoon. History of COPD: On 2 L. Also history of aspiration pneumonia. N.p.o. for now. Restart diet once patient is more awake as per speech evaluation. CODE STATUS: Patient has a state appointed guardian Ms. Mayte Villagomez. DNR/DNR as per documentation from the past. N.p.o. Protonix OPD prophylaxis Heparin 5000 every 12 hourly for DVT prophylaxis PDMP PDMP Reviewed: Last Reviewed 08/12/24 16:28 by Ajit Roberts MD Attestations Medical Necessity Statement*: Requires admission for more than 2 midnights in setting of altered mental status/somnolence once for breakthrough seizures in a patient with history of traumatic brain injury, seizure disorder, [facility] resident. Diagnoses Somnolence R40.0 Altered mental status R40.4 Altered mental status type: transient alteration of awareness Pseudomonas urinary tract infection N39.0; B96.5 Generalized epilepsy G40.309 Brain injury S06.9X9A Encephalomalacia without cerebral infarction G93.89 Chronic indwelling Vallecillo catheter Z97.8
[2024-08-12 17:01] LABS: Amphetamines Screen Urine Negative (Negative); Barbiturates Screen Urine Positive (Negative); Benzodiazepines Screen Urine Positive (Negative); Cocaine Screen Urine Negative (Negative); Opiate Screen Urine Negative (Negative); PCP Screen Urine Negative (Negative); THC Screen Urine Negative (Negative)
[2024-08-12 17:24] LABS: Estmated Average Glucose 62; Hemoglobin A1C 3.8 % (4.0-6.0)
[2024-08-12] MEDS: tamsulosin 0.4 mg Capsule PO (17:24)
[2024-08-12] MEDS: zonisamide 100 MG Capsule PO (17:24)
[2024-08-12] MEDS: fidaxomicin 200 mg Tablet PO (17:24)
[2024-08-12] MEDS: sucralfate 1 gm/10 mL Oral Liq UDC PO (17:25)
[2024-08-12] MEDS: heparin 5,000 unit/mL INJ 1 mL 5000 UNIT SUBCUT (17:25)
[2024-08-12] MEDS: docusate sodium 100 mg Capsule PO (17:25)
[2024-08-12] MEDS: pantoprazole 40 mg SDV IVP (17:25)
[2024-08-12 17:29] LABS: Prolactin 22.06 ng/mL (4.8-23.3); Thyroid Stimulating Hormone 0.66 uIU/mL (0.27-4.20); Vitamin B12 1379 pg/mL (232-1245)
[2024-08-12 17:38] LABS: Adenovirus Not Detected (NOT DETECT); Chlamydia Pneumoniae Not Detected (NOT DETECT); Coronavirus 229E,HKU1,NL63,OC4 Not Detected (NOT DETECT); Human Metapneumovirus Not Detected (NOT DETECT); Human Rhinovirus/Enterovirus Not Detected (NOT DETECT); Influenza A Not Detected (NOT DETECT); Influenza A H1 Not Detected (NOT DETECT); Influenza A H1-2009 Not Detected (NOT DETECT); Influenza A H3 Not Detected (NOT DETECT); Influenza B Not Detected (NOT DETECT); Mycoplasma Pneumoniae Not Detected (NOT DETECT); Parainfluenza Virus Type 1 Not Detected (NOT DETECT); Parainfluenza Virus Type 2 Not Detected (NOT DETECT); Parainfluenza Virus Type 3 Not Detected (NOT DETECT); Parainfluenza Virus Type 4 Not Detected (NOT DETECT); Respiratory Syncytial Virus A Not Detected (NOT DETECT); Respiratory Syncytial Virus B Not Detected (NOT DETECT); SARS-COV-2 Not Detected (NOT DETECT)
[2024-08-12 17:40] LABS: Iron 88 ug/dL (37-145); Percent Saturation 40.7 % (20-50); Total Iron Binding Capacity 216 mcg/dl; Unsaturated Iron Binding 128 ug/dL (112-347)
[2024-08-12 18:18] LABS: Bilirubin Urine Negative (Negative); Blood Urine Negative (Negative); Glucose Urine UA Negative (Normal); Ketones Urine Negative (Negative); Leukocyte Esterase Urine 1+ (Negative); Nitrate Urine Positive (Negative); Protein Urine 1+ (Negative); Urine Appearance Clear (CLEAR); pH Urine 5.5 (5-7)
[2024-08-12 18:22] LABS: Add Urine Microscopic? YES; Bacteria Urine None Seen /hpf; Hyaline Casts Urine 0-4 /lpf; Squamous Epithelial Cell Urine 0-5 /hpf (0-5); WBC Urine 21-50 /hpf (0-5)
[2024-08-12 18:30] LABS: Add Urine Culture? Yes; Urine Color Orange (Yellow)
[2024-08-12] MEDS: levETIRAcetam 2,000 MG/200 ML PREMIX 400 MG IV (18:38)
[2024-08-12] MEDS: sodium chloride 0.9% 1,000 ML 75 ML IV (18:41)
--- NOTE | 2024-08-12 20:42 | ECG_ITS ---
[facility] Test Date: 2024-08-12 Pat Name: Dasia Brian Department: Room: 258 Gender: Female Diploma Medical Assistant: : [id number] Requested By: Gil Pettit Order Number: [id number] Cristian MD: Florida Rivera M.D. Measurements Intervals [place] Rate: 73 P: 41 MT: 180 QRS: 60 QRSD: 81 T: 77 QT: 406 QTc: 449 Interpretive Statements SINUS RHYTHM Compared to ECG 08/12/2024 17:29:02 No significant changes Electronically Signed On 08-12-2024 22:10:50 CDT by Florida Rivera M.D. [email or web address]
[2024-08-12] MEDS: albuterol 2.5 mg/3 mL Neb INHALATION (20:43)
[2024-08-12] MEDS: budesonide 0.5 mg/2 mL Neb INHALATION (20:43)
[2024-08-12] MEDS: BuSPIRONE 10 mg Tablet PO (20:55)
[2024-08-13] VITALS (12 sets, daily range): BP systolic 102–135; BP diastolic 63–79; PULSE 75–97; RESP 15–19; TEMP 36.4–37.6; O2SAT 92–95
--- OUTSIDE RECORDS SUMMARY | 2024-08-13 00:07 | XMS_ITS | Encounter Summary ---
Author Organization [facility] Address [address] [place] [address] Care Team Providers Care Heatset Winder Operator Name Role Phone Marilyn Trivedi APN Primary Care Provider [phone] Encounter Details Date Type Department Care Team (Latest Contact Info) Description 03/09/2004 Outpatient Historical [facility] [place] Neurology [address] [place] [address], [address] [place] [address] Jorge Suero MD NO ADDRESS ON FILE PSYCHO EPI INTRACTABLE (CMS/HCC) (Primary Dx) Social History Tobacco Use Types Packs/Day Years Used Date Smoking Tobacco: Never Assessed Comments Unknown Sex and Gender Information Value Date Recorded Sex Assigned at Not on file 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 [facility] [address] [place] [address] PCP - General 06/23/09 documented as of this encounter
--- OUTSIDE RECORDS SUMMARY | 2024-08-13 00:07 | XMS_ITS | Encounter Summary ---
Author Organization [facility] Address [address] [place] [address] Care Team Providers Care Mri Ct Tech Name Role Phone Marilyn Trivedi APN Primary Care Provider [phone] Encounter Details Date Type Department Care Team (Latest Contact Info) Description 12/17/2003 Outpatient Historical [facility] Neurology [address] [place] [address], [address] [place] [address] Jorge Suero MD NO ADDRESS ON FILE GEN CONVUL EPI INTRACTABLE (CMS/HCC) (Primary Dx) Social History Tobacco Use Types Packs/Day Years Used Date Smoking Tobacco: Never Assessed Comments Unknown Sex and Gender Information Value Date Recorded Sex Assigned at Not on file 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 [address] PCP - General 06/23/09 documented as of this encounter
--- OUTSIDE RECORDS SUMMARY | 2024-08-13 00:07 | XMS_ITS | Encounter Summary ---
Author Organization [facility] Address [address] [place] [address] Care Team Providers Care Plant And Machinery Valuer Name Role Phone Marilyn Trivedi APN Primary Care Provider [phone] Encounter Details Date Type Department Care Team (Latest Contact Info) Description 01/18/2004 Outpatient Historical [facility] [place] [place] Neurology [address], [address] [place] [address] Jorge Suero MD NO ADDRESS ON FILE GEN CONVUL EPI W/O MENTN INTRACT (CMS/[facility]) (Primary Dx) Social History Tobacco Use Types Packs/Day Years Used Date Smoking Tobacco: Never Assessed Comments Unknown Sex and Gender Information Value Date Recorded Sex Assigned at Not on file 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 [facility] [address] [place] [address] PCP - General 06/23/09 documented as of this encounter
--- OUTSIDE RECORDS SUMMARY | 2024-08-13 00:07 | XMS_ITS | Encounter Summary ---
Author Organization [facility] Address [address] [place] [address] Care Team Providers Care Ldr Nurse Name Role Phone Marilyn Triveid APN Primary Care Provider [phone] Encounter Details Date Type Department Care Team (Latest Contact Info) Description 11/10/2004 Outpatient Historical [facility] [place] [facility] Neurology [address], [address] [place] [address] Jorge Suero MD NO ADDRESS ON FILE GEN CONVUL EPI INTRACTABLE (CMS/HCC) (Primary Dx) Social History Tobacco Use Types Packs/Day Years Used Date Smoking Tobacco: Never Assessed Comments Unknown Sex and Gender Information Value Date Recorded Sex Assigned at Not on file 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 [address] PCP - General 06/23/09 documented as of this encounter
--- OUTSIDE RECORDS SUMMARY | 2024-08-13 00:07 | XMS_ITS | Encounter Summary ---
Author Organization [facility] Address [address] [place] [address] Care Team Providers Care Chief Substation Operator Name Role Phone Marilyn Trivedi APN Primary Care Provider Encounter Details Date Type Department Care Team (Latest Contact Info) Description 09/27/2004 Outpatient Historical [facility] Neurology [address] [place] [address], [address] [place] [address] Jorge Suero MD NO ADDRESS ON FILE GEN CONVUL EPI INTRACTABLE (CMS/HCC) (Primary Dx) Social History Tobacco Use Types Packs/Day Years Used Date Smoking Tobacco: Never Assessed Comments Unknown Sex and Gender Information Value Date Recorded Sex Assigned at Not on file 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 [address] PCP - General 06/23/09 documented as of this encounter
--- OUTSIDE RECORDS SUMMARY | 2024-08-13 00:07 | XMS_ITS | Encounter Summary ---
Author Organization [facility] Address [address] [place] [address] Care Team Providers Care Administrative Office Assistant Name Role Phone Marilyn Trivedi APN Primary Care Provider Encounter Details Date Type Department Care Team (Latest Contact Info) Description 08/19/2003 Outpatient Historical [facility] [place] [place] Neurology [address], [address] [place] [address] [place] [address] [place] [address] PSYCHO EPI INTRACTABLE (CMS/HCC) (Primary Dx) Social History Tobacco Use Types Packs/Day Years Used Date Smoking Tobacco: Never Assessed Comments Unknown Sex and Gender Information Value Date Recorded Sex Assigned at Not on file 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 [facility] [address] [place] [address] PCP - General 06/23/09 documented as of this encounter
--- OUTSIDE RECORDS SUMMARY | 2024-08-13 00:07 | XMS_ITS | Clinical Summary ---
Author Organization [facility] Address [address] [place] [address] Care Team Providers Care Lime Kiln And Recausticizing Operator Name Role Phone Farooq Marilyn Seals APN Primary Care Provider [phone] Allergies Active Allergy Reactions Criticality Noted Date Comments Aspirin Rash Low 06/16/2009 Caffeine Seizure High 06/23/2009 Homeopathic Products Other (See Comments) 06/23 Dairy products cause increased problems with sinus drainage per family Medications alprazolam (XANAX) 0.5 mg Oral tabletIndicatio ns:Fracture of elbow Take 0.5 mg by mouth nightly as needed for Anxiety. Active Zonisamide (ZONEGRAN) 100 mg Oral capsuleIndicati ons:Fracture of elbow Take 100 mg by mouth daily. Active SENNA (SENOKOT PO)Indications: Fracture of elbow Take by mouth. Activ e levetiracetam (KEPPRA) 250 mg Oral tabletIndicatio ns:Fracture of elbow Take 250 mg by mouth 2 times daily. Active folic acid (FOLVITE) 1 mg Oral tabletIndicatio ns:Fracture of elbow Take 1 mg by mouth daily. Active DOCUSATE CALCIUM (STOOL SOFTENER PO)Indications: Fracture of elbow Take by mouth. Activ e phenytoin (DILANTIN) 50 mg Oral ChewIndications :Fracture of elbow Take 50 mg by mouth 3 times daily. Active hydrocodone-franklin taminophen (NORCO) 5-325 mg Oral tablet Take 1 Tab by mouth every 4 hours as needed for Pain. 40 Tab 0 0 Active LORATADINE (CLARITIN PO) Take by mouth. A ctive acetaminophen (TYLENOL) 325 mg Oral tablet Take 325 mg by mouth every 4 hours as needed for Pain. Active CALCIUM CARBONATE/MAG HYDROX (MYLANTA PO) Take by mouth. Activ e MAGNESIUM HYDROXIDE (MILK OF MAGNESIA PO) Take by mouth. Active diazepam (DIASTAT) 10 mg Rectal Kit Insert 10 mg by rectum one time only. Active ciprofloxacin-d examethasone (CIPROFLOXACIN- DEXAMETHASONE) 0.3-0.1 % OT DrpS Administer 4 Drops in both ears 2 times daily. Active polyethylene glycol (POLYETHLENE GLYCOL) 17 gram Oral PwPk Take 17 Gram by mouth daily. Active bisacodyl (DULCOLAX) 10 mg Rectal Supp Insert 10 mg by rectum daily. 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 Gender Identity Not on file Sexual Orientation Not on file Last Filed Vital Signs Vital Sign Reading Time Taken Comments Blood Pressure 98/57 09/22/2010 10:15 AM CDT Pulse 78 09/22/2010 10:15 AM CDT Temperature 36.6 ??C (97.9 ??F) 09/22/2010 10:15 AM C DT Respiratory Rate 16 09/22/2010 10:15 AM CDT Oxygen Saturation 96% 09/22/2010 10:15 AM CDT Inhaled Oxygen Concentration - - Weight 59 kg (130 lb) 09/22/2010 10:15 AM CDT Height 149.9 cm (4' 11 ) 09/22/2010 10:15 AM CDT Body Mass Index 26.26 09/22/2010 10:15 AM CDT Plan of Treatment Health Maintenance Due Date Last Done Comments BREAST CANCER SCREENING 1994 DTAP/TDAP/TD VACCINES (1 - Tdap) 07/25/1998 07/24/18 99 COLORECTAL SCREENING 12/12/1999 Colorectal Cancer Screening 12/12/1999 FIT-DNA Q 3 years 12/12/1999 FIT/FOBT Q 1 year 12/12/1999 Flex Sig/CT Colonography Q 5 years 12/12/1999 PNEUMOCOCCAL VACCINE 50+ YEARS (1 of 1 - PCV) 12/12/19 05 ZOSTER VACCINE (1 of 2) 2004 OSTEOPOROSIS SCREENING 12/12/2019 INFLUENZA VACCINE (#1) 2023 RSV VACCINE (60+ or ) (1 - 1-dose 75+ series) 2029 Medical Devices Implanted Type Area Assistant County Engineer Device Identifier Shelf Expiration Date Model / Serial / Lot Log [id number] - Acumed Locking Elbow / Clavicle Set - 1 - Plate Hook Lcp 3.5mm 3hl [id number] Implanted:Qty: 1 on 06/24/2009 at [facility] Plate Right: Elbow SYNTHES STRATEC 02.113.103S / / LOAD # [id number] Log 14904 - Synthes 3.5 Lcp Distal Humerus & Elbow Plate Sys - 1 - Plate Lcp Hum Post/Lat/Dis 3.5mm 241.264 Implanted:Qty: 1 on 06/24/2009 at [facility] Plate Right: Elbow SYNTHES [employer]ATEC 241.264 / / LOAD# [id number] Log 32045 - Synthes 3.5 Lcp Distal Humerus & Elbow Plate Sys - 1 - Plate Dis Humer 7h Rt 241.286 Implanted:Qty: 1 on 06/24/2009 at [facility] Plate Right: Elbow SYNTHES [employer]ATEC 241.286 / / LOAD# [id number] Log 10020 - Synthes Small Frag Lcp Locking - 1 - Screw Lock Self Tap 3.5x24mm 212.108 Implanted:Qty: 1 on 06/24/2009 at [facility] Screw Right: Elbow SYNTHES STRATEC 212.108 / / Log 70261 - Synthes Small Frag Lcp Locking - 1 - Screw Lock Self Tap 3.5x28mm 212.110 Implanted:Qty: 2 on 06/24/2009 at [facility] Screw Right: Elbow SYNTHES STRATEC 212.110 / / Log 36665 - Synthes 3.5 Lcp Distal Humerus & Elbow Plate Sys - 1 - Screw Lock 2.7x20mm 202.220 Implanted:Qty: 2 on 06/24/2009 at [facility] Screw Right: Elbow SYNTHES STRATEC 202.220 / / LOAD# [id number] Log 32850 - Synthes 3.5 Lcp Distal Humerus & Elbow Plate Sys - 1 - Screw Lock 2.7x22mm 202.222 Implanted:Qty: 1 on 06/24/2009 at [facility] Screw Right: Elbow SYNTHES [employer]ATEC 202.222 / / LOAD# [id number] Log 73345 - Synthes 3.5 Lcp Distal Humerus & Elbow Plate Sys - 1 - Screw Lock 2.7x24mm 202.224 Implanted:Qty: 1 on 06/24/2009 at [facility] Screw Right: Elbow SYNTHES STRATEC 202.224 / / LOAD# [id number] Log 25196 - Synthes 3.5 Lcp Distal Humerus & Elbow Plate Sys - 1 - Screw Lock 2.7x26mm 202.226 Implanted:Qty: 1 on 06/24/2009 at [facility] Screw Right: Elbow SYNTHES STRATEC 202.226 / / LOAD# [id number] Log 36750 - Synthes 3.5 Lcp Distal Humerus & Elbow Plate Sys - 1 - Screw Lock 2.7x30mm 202.230 Implanted:Qty: 1 on 06/24/2009 at [facility] Screw Right: Elbow SYNTHES STRATEC 202.230 / / LOAD# [id number] Log 65085 - Synthes Small Frag Lcp Locking - 1 - Screw Sami Self Tap 3.5x18mm 204.818 Implanted:Qty: 1 on 06/24/2009 at [facility] Screw Right: Elbow SYNTHES [employer]ATEC 204.818 / / Log 51593 - Synthes Small Frag Lcp Locking - 1 - Screw Sami Self Tap 3.5x20mm 204.820 Implanted:Qty: 4 on 06/24/2009 at [facility] Screw Right: Elbow SYNTHES STRATEC 204.820 / / Log 97422 - Synthes Small Frag Lcp Locking - 1 - Screw Sami Self Tap 3.5x22mm 204.822 Implanted:Qty: 1 on 06/24/2009 at [facility] Screw Right: Elbow SYNTHES STRATEC 204.822 / / Log 04925 - Synthes Small Frag Lcp Locking - 1 - Screw Sami Self Tap 3.5x26mm 204.826 Implanted:Qty: 1 on 06/24/2009 at [facility] Screw Right: Elbow SYNTHES STRATEC 204.826 / / Log 16363 - Synthes Small Frag Lcp Locking - 1 - Screw Sami Self Tap 3.5x38mm 204.838 Implanted:Qty: 1 on 06/24/2009 at [facility] [place] Screw Right: Elbow SYNTHES STRATEC 204.838 / / Log 44819 - Synthes Small Frag Lcp Locking - 1 - Screw Lock Self Tap 3.5x20mm 212.106 Implanted:Qty: 3 on 06/24/2009 at [facility] Screw Right: Elbow SYNTHES STRATEC 212.106 / / Insurance MEDICARE PART A AND B [place] Advance Directives For more information, please contact: [phone] * Full Code (Latest Code Status on File) Date Activated Date Inactivated Comments 06/24/2009 6:43 PM 06/27/2009 2:27 PM * Full Code Date Activated Date Inactivated Comments 06/24/2009 2:31 PM 06/24/2009 6:43 PM * Full Code Date Activated Date Inactivated Comments 06/24/2009 1:39 PM 06/24/2009 2:31 PM * Full Code Date Activated Date Inactivated Comments 06/23/2009 4:13 PM 06/24/2009 1:39 PM Care Teams Lime Kiln And Recausticizing Operator Relationship Specialty Start Date End Date Marilyn Trivedi APN [facility] [address] [address] PCP - General 06/23/09
--- OUTSIDE RECORDS SUMMARY | 2024-08-13 00:07 | XMS_ITS | Encounter Summary ---
Author Organization [facility] Address [address] [place] [address] Care Team Providers Care Tape Control Skin Or Spar Mill Operator Name Role Phone Marilyn Trivedi APN Primary Care Provider [phone] Encounter Details Date Type Department Care Team (Late st Contact Info) Description 07/31/2024 External Device Data [facility] ABSTRACTION Provider, Abstract NO ADDRESS ON FILE Social History Tobacco Use Types Packs/Day Years Used Date Smoking Tobacco: Never Alcohol Use Standard Drinks/Week Comments No 0 (1 standard drink = 0.6 oz pur e alcohol) Comments Unknown Sex and Gender Information Value Date Recorded Sex Assigned at Not on file Legal Sex Female 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
--- OUTSIDE RECORDS SUMMARY | 2024-08-13 00:07 | XMS_ITS | Encounter Summary ---
Author Organization [facility] Address [address] [place] [address] Care Team Providers Care Conveyor Worker Name Role Phone Marilyn Trivedi ZOE Primary Care Provider Reason for Visit * Reason Onset Date Comments External Referral 07/30/2024 Encounter Details Date Type Department Care Team (Late st Contact Info) Description 07/30/2024 Telephone [facility] Pulmonology [address] [place] [address] Provider, Abstract NO ADDRESS ON FILE External Referral Social History Tobacco Use Types Packs/Day Years Used Date Smoking Tobacco: Never Alcohol Use Standard Drinks/Week Comments No 0 (1 standard drink = 0.6 oz pur e alcohol) Comments Unknown Sex and Gender Information Value Date Recorded Sex Assigned at Not on file Legal Sex Female 1:00 AM OFFSET PRINTING PRESSMEN Gender Identity Not on file Sexual Orientation Not on file documented as of this encounter Miscellaneous Notes * Telephone Encounter - Leela Potter - 07/30/2024 9:21 AM OFFSET PRINTING PRESSMEN Patient is wanting to schedule referral appointment. Patient was also informed a PFT will need to be completed prior to scheduling. Referral was received on 07/25 . Please call. [phone] - Sandra ET PRINTING PRESSMEN documented in this encounter Plan of Treatment Not on file documented as of this encounter Visit Diagnoses Not on filedocumented in this encounter Care Teams Conveyor Worker Relationship Specialty Start Date End Date Farooq, Marilyn Seals APN [address] [place] [address] PCP - General 06/23/09 documented as of this encounter
--- OUTSIDE RECORDS SUMMARY | 2024-08-13 00:07 | XMS_ITS | Encounter Summary ---
Author Organization [facility] Address [address] [place] [address] Care Team Providers Care Resident Care Director Name Role Phone Marilyn Trivedi APN Primary Care Provider [phone] Encounter Details Date Type Department Care Team (Latest Contact Info) Description 01/16/2005 Outpatient Historical [facility] Neurology [address] [place] [address], [address] [place] [address] Jorge Suero MD NO ADDRESS ON FILE PSYCHO EPI W/O MENTN INTRACTABLE (CMS/HCC) (Primary Dx); CEREBRAL PALSY NOS (CMS/HCC) Social History Tobacco Use Types Packs/Day Years Used Date Smoking Tobacco: Never Assessed Comments Unknown Sex and Gender Information Value Date Recorded Sex Assigned at Not on file 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 Gender Identity Not on file Sexual Orientation Not on file documented as of this encounter Plan of Treatment Not on file documented as of this encounter Visit Diagnoses Diagnosis Localization-related (focal) (partial) epilepsy and epileptic syndromes with complex partial seizures, without mention of intractable epilepsy (CMS/HCC)- Primary Localization-related (focal) (partial) epilepsy and epileptic syndromes with complex partial seizures, 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 [address] PCP - General 06/23/09 documented as of this encounter
--- OUTSIDE RECORDS SUMMARY | 2024-08-13 00:07 | XMS_ITS ---
Author Organization [facility] Address [address] [place] [address] Care Team Providers Care Floral Department Specialist Name Role Phone Nuris Trivedi Primary Care Provider NURIS TRIVEDI Unavailable Unavailable Encounters Encounter Location Date Provider Diagnosis [facility] [address] [place] [address] 08/11/2024 [facility] Diarrhea R19.7 Assessments Encounter Date Diagnosis (ICD Code) Assessment Notes Treatment Notes Treatment Clinical Notes Section Notes 08/11/2024 Diarrhea (ICD-10 - R19.7) Plan Of Treatment Next Appt Details Provider Name:Nuris Trivedi, 08/17/2024 11:20:00 AM, [address], [place], [address], Progress Notes * LESLEE MELENDEZDOB:1955 (68 yo F)Acc No.[id number]:08/11/2024 Patient:?LESLEE MELENDEZ :1955???Age:68 Y???Sex:Female Address:[address] [place] [address] Subjective: * Chief Complaints: * ??? * Medical History:? * Surgical History:? * Hospitalization/Major Diagno stic Procedure:? * Medications:? Objective: * Vitals:? * Physical Examination:? Assessment: * Assessment: 1.?Diarrhea - R19.7 (Primary )??? Plan: * Treatment: * Procedure Codes:? * true * Date:? Generated for Petey frederick/Willis/Jumanaitting on:?08/13/2024 12:07 AM CDT
--- OUTSIDE RECORDS SUMMARY | 2024-08-13 00:07 | XMS_ITS | Encounter Summary ---
Author Organization [facility] Address [address] [place] [address] Care Team Providers Care Seed And Fertilizer Specialist Name Role Phone Marilyn Trivedi APN Primary Care Provider Encounter Details Date Type Department Care Team (Latest Contact Info) Description 07/26/[address] 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 [address] PCP - General 06/23/09 documented as of this encounter
--- OUTSIDE RECORDS SUMMARY | 2024-08-13 00:07 | XMS_ITS | Encounter Summary ---
Author Organization [facility] Address [address] [place] [address] Care Team Providers Care Whitesmith Name Role Phone Marilyn Trivedi APN Primary Care Provider Encounter Details Date Type Department Care Team (Latest Contact Info) Description 08/19/2003 Outpatient [facility] Imaging and Laboratory Services [address] [place] [address] [place] [address] [place] [address] PSYCHO EPI W/O MENTN INTRACTABLE ([facility]/HCC) (Primary Dx) Social History Tobacco Use Types Packs/Day Years Used Date Smoking Tobacco: Never Assessed Comments Unknown Sex and Gender Information Value Date Recorded Sex Assigned at Not on file 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 Gender Identity Not on file Sexual Orientation Not on file documented as of this encounter Plan of Treatment Not on file documented as of this encounter Visit Diagnoses Diagnosis Localization-related (focal) (partial) epilepsy and epileptic syndromes with complex partial seizures, without mention of intractable epilepsy ([facility]/HCC)- Primary Localization-related (focal) (partial) epilepsy and epileptic syndromes with complex partial seizures, without mention of intractable epilepsy documented in this encounter Care Teams Whitesmith Relationship Specialty Start Date End Date Marilyn Trivedi APN [address] [address] PCP - General 06/23/09 documented as of this encounter
--- OUTSIDE RECORDS SUMMARY | 2024-08-13 00:07 | XMS_ITS | Encounter Summary ---
Author Organization [facility] Address [address] [place] [address] Care Team Providers Care Hydraulic Lift Driver Name Role Phone Marilyn Trivedi APN Primary Care Provider [phone] Encounter Details Date Type Department Care Team (Latest Contact Info) Description 06/21/2004 Outpatient Historical [facility] Neurology [address] [place] [address], [address] [place] [address] Jorge Suero MD NO ADDRESS ON FILE GEN CONVUL EPI INTRACTABLE (CMS/HCC) (Primary Dx) Social History Tobacco Use Types Packs/Day Years Used Date Smoking Tobacco: Never Assessed Comments Unknown Sex and Gender Information Value Date Recorded Sex Assigned at Not on file 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 [address] PCP - General 06/23/09 documented as of this encounter
--- OUTSIDE RECORDS SUMMARY | 2024-08-13 00:07 | XMS_ITS | Encounter Summary ---
Author Organization [facility] Address [address] [place] [address] Care Team Providers Care Prune Washer Name Role Phone Marilyn Trivedi APN Primary Care Provider Encounter Details Date Type Department Care Team (Latest Contact Info) Description 10/01/2003 Outpatient Historical [facility] Neurology [address] [facility] [address], [address] [place] [address] [place] [address] [place] [address] PSYCHO EPI W/O MENTN INTRACTABLE (CMS/HCC) (Primary Dx) Social History Tobacco Use Types Packs/Day Years Used Date Smoking Tobacco: Never Assessed Comments Unknown Sex and Gender Information Value Date Recorded Sex Assigned at Not on file 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 [address] PCP - General 06/23/09 documented as of this encounter
--- OUTSIDE RECORDS SUMMARY | 2024-08-13 00:07 | XMS_ITS | Encounter Summary ---
Author Organization [facility] Address [address] [place] [address] Care Team Providers Care Metal Rolling Mill Operator Name Role Phone Marilyn Trivedi APN Primary Care Provider [phone] Encounter Details Date Type Department Care Team (Latest Contact Info) Description 09/06/2004 Outpatient Historical [facility] Neurology [address] [facility], [address] [place] [address] Jorge Suero MD NO ADDRESS ON FILE GEN CONVUL EPI W/O MENTN INTRACT (CMS/[facility]) (Primary Dx) Social History Tobacco Use Types Packs/Day Years Used Date Smoking Tobacco: Never Assessed Comments Unknown Sex and Gender Information Value Date Recorded Sex Assigned at Not on file Legal Sex Female 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 [facility] [address] [place] [address] PCP - General 06/23/09 documented as of this encounter
--- OUTSIDE RECORDS SUMMARY | 2024-08-13 00:07 | XMS_ITS | Encounter Summary ---
Author Organization [facility] Address [address] 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
--- OUTSIDE RECORDS SUMMARY | 2024-08-13 00:07 | XMS_ITS | Encounter Summary ---
Author Organization [facility] Address [address] [place] [address] Care Team Providers Care Revenue Enforcement Collection Agent Name Role Phone Marilyn Trivedi APN Primary Care Provider Encounter Details Date Type Department Care Team (Latest Contact Info) Description 10/29/2003 Outpatient Historical [facility] Neurology [address] [facility], [address] [place] [address] [place] [address] [place] [address] PSYCHO EPI INTRACTABLE (CMS/HCC) (Primary Dx) Social History Tobacco Use Types Packs/Day Years Used Date Smoking Tobacco: Never Assessed Comments Unknown Sex and Gender Information Value Date Recorded Sex Assigned at Not on file Legal Sex Female 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 [facility] [address] [place] [address] PCP - General 06/23/09 documented as of this encounter
--- OUTSIDE RECORDS SUMMARY | 2024-08-13 00:07 | XMS_ITS | Encounter Summary ---
Author Organization [facility] Address [address] [place] [address] Care Team Providers Care Jewel Hole Gauger Name Role Phone Marilyn Trivedi APN Primary Care Provider [phone] Encounter Details Date Type Department Care Team (Latest Contact Info) Description 01/18/2004 Outpatient Historical [facility] [address], [address] [place] [address] Jorge Suero MD NO ADDRESS ON FILE AFTERCARE RETIREMENT USE MEDICATN (Primary Dx) Social History Tobacco Use Types Packs/Day Years Used Date Smoking Tobacco: Never Assessed Comments Unknown Sex and Gender Information Value Date Recorded Sex Assigned at Not on file 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 [facility] [address] [place] [address] PCP - General 06/23/09 documented as of this encounter
--- OUTSIDE RECORDS SUMMARY | 2024-08-13 00:08 | XMS_ITS | Encounter Summary ---
Author Organization [facility] Address [address] [place] [address] Care Team Providers Care Barrow Worker Name Role Phone Marilyn Trivedi APN Primary Care Provider [phone] Encounter Details Date Type Department Care Team (Late st Contact Info) Description 08/03/2024 External Device Data STL ABSTRACTION Provider, Abstract NO ADDRESS ON FILE Social History Tobacco Use Types Packs/Day Years Used Date Smoking Tobacco: Never Alcohol Use Standard Drinks/Week Comments No 0 (1 standard drink = 0.6 oz pur e alcohol) Comments Unknown Sex and Gender Information Value Date Recorded Sex Assigned at Not on file Legal Sex Female 1: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
--- OUTSIDE RECORDS SUMMARY | 2024-08-13 00:08 | XMS_ITS | Encounter Summary ---
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); Unspecified Mental Retardation; Unspecified Infantile Cerebral Palsy (CMS/HCC); Psychomotor Epilepsy, Intractable (CMS/HCC) Social History Tobacco Use Types Packs/Day Years Used Date Smoking Tobacco: Never Assessed Comments Unknown Sex and Gender Information Value Date Recorded Sex Assigned at Not on file Legal Sex Female 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 Gender Identity Not on file Sexual Orientation Not on file documented as of this encounter Plan of Treatment Not on file documented as of this encounter Visit Diagnoses Diagnosis 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 Unspecified intellectual disabilities Infantile cerebral palsy, unspecified (CMS/HCC) Infantile cerebral palsy, unspecified Localization-related (focal) (partial) epilepsy and epileptic syndromes with complex partial seizures, with intractable epilepsy (CMS/HCC) Localization-related (focal) (partial) epilepsy and epileptic syndromes with complex partial seizures, with intractable epilepsy documented in this encounter Care Teams Purchasing Director Relationship Specialty Start Date End Date Marilyn Trivedi APN [address] [place] [address] PCP - General 06/23/09 documented as of this encounter
--- OUTSIDE RECORDS SUMMARY | 2024-08-13 00:08 | XMS_ITS | Encounter Summary ---
Author Organization [facility] Address [address] [place] [address] Care Team Providers Care Peeled Potato Inspector Name Role Phone Marilyn Trivedi APN Primary Care Provider [phone] Encounter Details Date Type Department Care Team (Latest Contact Info) Description 05/25/2005 Outpatient Historical [facility] Neurology [address] [facility], [address] [place] [address] Jorge Suero MD NO ADDRESS ON FILE GEN CONVUL EPI INTRACTABLE (CMS/HCC) (Primary Dx) Social History Tobacco Use Types Packs/Day Years Used Date Smoking Tobacco: Never Assessed Comments Unknown Sex and Gender Information Value Date Recorded Sex Assigned at Not on file 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 [address] PCP - General 06/23/09 documented as of this encounter
--- OUTSIDE RECORDS SUMMARY | 2024-08-13 00:08 | XMS_ITS | Encounter Summary ---
Author Organization [facility] Address 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
--- OUTSIDE RECORDS SUMMARY | 2024-08-13 00:08 | XMS_ITS | Encounter Summary ---
Author Organization [facility] Address [address] [place] [address] Care Team Providers Care Harvest Field Ticketer Name Role Phone Marilyn Trivedi APN Primary Care Provider [phone] Encounter Details Date Type Department Care Team (Latest Contact Info) Description 06/18/2003 Outpatient Historical [facility] [address] 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 [facility] [address] [place] [address] PCP - General 06/23/09 documented as of this encounter
--- OUTSIDE RECORDS SUMMARY | 2024-08-13 00:08 | XMS_ITS ---
Author Organization [facility] Address [address] [place] [address] Care Team Providers Care Hedge Fund Manager Name Role Phone [facility] Primary Care Provider [phone] [facility] Unavailable Unavailable Results Component Value Reference Range Notes Culture Stool [id number], 58054, 66831, 48359, 38270 (Not yet reviewed by provider) Interpretation: Performing Lab: Notes/Report: Culture Stool LESLEE Sarmiento Culture Stool t: Culture Stool Culture Stool Accessio [id number] Culture Stool n: Culture Stool Microbiology Culture Stool PROCEDURE: Culture S tool [O1] Culture Stool SOURCE: Stool BODY SITE: Culture Stool COLLECTED DATE/TIME: 08/11/2024 11:00 CDT RECEIVED DATE/TIME: 08/11/2024 19:10 CDT Culture Stool START DATE/TIME: 07/25 19:10 CDT FREE TEXT SOURCE: Culture Stool PRELIMINARY REPORT Culture Stool Preliminary Report [] Culture Stool Verified Date/Time: 08/12/2024 05:36 CDT Culture Stool No Pathogens at 24 Hours Culture Stool Order Comments Culture Stool O1: Culture Stool ( Culture Stool [id number], [id number], 90355, 19698, 62821) Culture Stool Diagnosis Descriptio n: Diarrhea, unspecified C Diff Toxin EIA--60526 (Not yet reviewed by provider) Interpretation: Performing Lab: Notes/Report: CDiff Toxin EIA LESLEE Sarmiento CDiff Toxin EIA t: CDiff Toxin EIA CDiff Toxin EIA Accessio [id number] CDiff Toxin EIA n: CDiff Toxin EIA Microbiology CDiff Toxin EIA PROCEDURE: CDiff Tox in EIA [O1 i1] CDiff Toxin EIA SOURCE: Stool BODY SITE: CDiff Toxin EIA COLLECTED DATE/TIME: 08/11/2024 13:39 CDT RECEIVED DATE/TIME: 08/12/2024 10:33 CDT CDiff Toxin EIA START DATE/TIME: 07/25 10:33 CDT FREE TEXT SOURCE: CDiff Toxin EIA FINAL REPORT CDiff Toxin EIA Final Report [] CDiff Toxin EIA Verified Date/Time: 08/12/2024 10:39 CDT CDiff Toxin EIA Positive for Clostri dium difficile toxin A and/or B CDiff Toxin EIA called to Holli aranda at [facility] 08/12/2024 10:36:28 /dep/rbv CDiff Toxin EIA Order Comments CDiff Toxin EIA O1: CDiff Toxin EIA (C Diff Toxin EIA) CDiff Toxin EIA Diagnosis Descriptio n: Diarrhea, unspecified CDiff Toxin EIA Interpretive Data CDiff Toxin EIA i1: CDiff Toxin EIA CDiff Toxin EIA A positive result in dicates that Clostidium difficule is present and is producing toxin CDiff Toxin EIA that is responsible for C. difficile infection. Treatment of a patient yielding a positive CDiff Toxin EIA PCR result with a ne gative toxin result should be based on clinical symptoms. REASON FOR VISIT Stool sample brought to clinic Encounters Encounter Location Date Provider Diagnosis [facility] Office [address] [place] [address] 08/11/2024 Marilyn Trivedi Diarrhea R19.7 Assessments Encounter Date Diagnosis (ICD Code) Assessment Notes Treatment Notes Treatment Clinical Notes Section Notes 08/11/2024 Diarrhea (ICD-10 - R19.7) Plan Of Treatment Pending Test Test Name Order Date Culture Stool 23680, 88318, 28556, 52944 , 88510 08/11/2024 C Diff Toxin EIA--64063 08/11/2024 Next Appt Details Provider Name:Marilyn Trivedi, 08/17/2024 11:20:00 AM, [address], [place], [address], Progress Notes * LESLEE MELENDEZ JDOB:1955 (68 yo F)Acc No.[id number]:08/11/2024 Patient:?LESLEE MELENDEZ Provider:?Marilyn Trivedi HOUSEHOLD ASSISTANT :1955???Age:68 Y???Sex:Female D ate:08/11/2024 Address:[address] [place], [place] [address] Check Out:12: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 * Surgical History:? * Hospitalization/Major Diagno stic Procedure:? * Medications:? Objective: * Vitals:? Assessment: * Assessment: 1.?Diarrhea - R19.7 (Primary )??? Plan: * Treatment: * Procedure Codes:? * Billing Information: * Visit Code:? * Procedure Codes:? * Sign off status: Completed true * Provider:?Marilyn Trivedi HOUSEHOLD ASSISTANT Date:?08/12/19 25 Generated for Petey frederick/Willis/Donaldosmitting on:?08/13/2024 12:08 AM CDT
--- OUTSIDE RECORDS SUMMARY | 2024-08-13 00:08 | XMS_ITS | Encounter Summary ---
Author Organization [facility] Address [address] [place] [address] Care Team Providers Care Speech And Hearing Director Name Role Phone Marilyn Trivedi APN Primary Care Provider [phone] Encounter Details Date Type Department Care Team (Latest Contact Info) Description 05/17/2003 Outpatient Historical [facility] Gordo Glaser MD NO ADDRESS ON FILE PSYCHO EPI INTRACTABLE (CMS/HCC) (Primary Dx) Social History Tobacco Use Types Packs/Day Years Used Date Smoking Tobacco: Never Assessed Comments Unknown Sex and Gender Information Value Date Recorded Sex Assigned at Not on file Legal Sex Female 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
--- OUTSIDE RECORDS SUMMARY | 2024-08-13 00:08 | XMS_ITS | Encounter Summary ---
Author Organization [facility] Address 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
--- OUTSIDE RECORDS SUMMARY | 2024-08-13 00:08 | XMS_ITS | Encounter Summary ---
Author Organization [facility] Address [address] [place] [address] Care Team Providers Care Cutter V Groove Name Role Phone Marilyn Trivedi APN Primary Care Provider [phone] Encounter Details Date Type Department Care Team (Latest Contact Info) Description 02/19/2003 Outpatient Historical [facility] Gordo Glaser MD NO ADDRESS ON FILE PSYCHO EPI INTRACTABLE (CMS/HCC) (Primary Dx) Social History Tobacco Use Types Packs/Day Years Used Date Smoking Tobacco: Never Assessed Comments Unknown Sex and Gender Information Value Date Recorded Sex Assigned at Not on file Legal Sex Female 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
--- OUTSIDE RECORDS SUMMARY | 2024-08-13 00:08 | XMS_ITS | Encounter Summary ---
Author Organization [facility] Address 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
--- OUTSIDE RECORDS SUMMARY | 2024-08-13 00:08 | XMS_ITS | Clinical Summary ---
Author Organization [facility] Address [address] Sweet: Epic Prelude [place]T [place] [address] Care Team Providers Care Electrician Name Role Phone Trivedi, Marilyn Seals APN Primary Care Provider [phone] Allergies Active Allergy Reactions Criticality Noted Date Comments Aspirin Rash Low 06/16/2009 Caffeine Seizure High 06/23/2009 Homeopathic Products Other (See Comments) 06/23 Dairy products cause increased problems with sinus drainage per family Active Problems Problem Noted Date Diagnosed Date Sacral fracture 09/22/2010 Fracture of elbow 06/27/2009 Encounters Date Type Department Care Team Description 08/05/2024 External Device Data STL ABSTRACTION Provider, Abstract 08/04/2024 External Device Data STL ABSTRACTION Provider, Abstract 08/03/2024 External Device Data STL ABSTRACTION Provider, Abstract 08/01/2024 External Device Data STL ABSTRACTION Provider, Abstract 07/31/2024 External Device Data STL ABSTRACTION Provider, Abstract 07/30/2024 Telephone [facility]mon[facility] [address] [place] [address] Provider, Abstract External Referral from Last 3 Months Immunizations Immunization Administration Dates Next Due (TDVAX)(7 [...] on file Legal Sex Female 1:00 AM SOLE SKIVER Gender Identity Not on file Sexual Orientation Not on file Plan of Treatment Health Maintenance Due Date [...] series) 2029 Medical Devices Implanted Type Area Legal Administrative Assistant Device Identifier Shelf Expiration Date Model / Serial / Lot Log [id number] - Acumed Locking Elbow / Clavicle Set - 1 - Plate Hook Lcp 3.5mm 3hl 02.113.103s Implanted:Qty: 1 on 06/24/2009 Plate Right: Elbow SYNTHES STRATEC 02.113.103S / / LOAD # [id number] Log 60662 - Synthes 3.5 Lcp Distal Humerus & Elbow Plate Sys - 1 - Plate Dis Humer 7h Rt 241.286 Implanted:Qty: 1 on 06/24/2009 Plate Right: Elbow SYNTHES STRATEC 241.286 / / LOAD# [id number] Log 42977 - Synthes 3.5 Lcp Distal Humerus & Elbow Plate Sys - 1 - Plate Lcp Hum Post/Lat/Dis 3.5mm 241.264 Implanted:Qty: 1 on 06/24/2009 Plate Right: Elbow SYNTHES STRATEC 241.264 / / LOAD# [id number] Log 16476 - Synthes Small Frag Lcp Locking - 1 - Screw Sami Self Tap 3.5x20mm 204.820 Implanted:Qty: 4 on 06/24/2009 Screw Right: Elbow SYNTHES STRATEC 204.820 / / Log [id number] - Synthes Small Frag Lcp Locking - 1 - Screw Sami Self Tap 3.5x22mm 204.822 Implanted:Qty: 1 on 06/24/2009 Screw Right: Elbow SYNTHES STRATEC 204.822 / / Log 48531 - Synthes Small Frag Lcp Locking - 1 - Screw Sami Self Tap 3.5x26mm 204.826 Implanted:Qty: 1 on 06/24/2009 Screw Right: Elbow SYNTHES STRATEC 204.826 / / Log 19867 - Synthes Small Frag Lcp Locking - 1 - Screw Sami Self Tap 3.5x38mm 204.838 Implanted:Qty: 1 on 06/24/2009 Screw Right: Elbow SYNTHES STRATEC 204.838 / / Log 27351 - Synthes Small Frag Lcp Locking - 1 - Screw Lock Self Tap 3.5x20mm 212.106 Implanted:Qty: 3 on 06/24/2009 Screw Right: Elbow SYNTHES STRATEC 212.106 / / Log 10267 - Synthes Small Frag Lcp Locking - 1 - Screw Lock Self Tap 3.5x24mm 212.108 Implanted:Qty: 1 on 06/24/2009 Screw Right: Elbow SYNTHES STRATEC 212.108 / / Log 72101 - Synthes Small Frag Lcp Locking - 1 - Screw Lock Self Tap 3.5x28mm 212.110 Implanted:Qty: 2 on 06/24/2009 Screw Right: Elbow SYNTHES STRATEC 212.110 / / Log 28637 - Synthes 3.5 Lcp Distal Humerus & Elbow Plate Sys - 1 - Screw Lock 2.7x20mm 202.220 Implanted:Qty: 2 on 06/24/2009 Screw Right: Elbow SYNTHES STRATEC 202.220 / / LOAD# [id number] Log 87519 - Synthes 3.5 Lcp Distal Humerus & Elbow Plate Sys - 1 - Screw Lock 2.7x22mm 202.222 Implanted:Qty: 1 on 06/24/2009 Screw Right: Elbow SYNTHES STRATEC 202.222 / / LOAD# [id number] Log 23846 - Synthes 3.5 Lcp Distal Humerus & Elbow Plate Sys - 1 - Screw Lock 2.7x24mm 202.224 Implanted:Qty: 1 on 06/24/2009 Screw Right: Elbow SYNTHES STRATEC 202.224 / / LOAD# [id number] Log 92586 - Synthes 3.5 Lcp Distal Humerus & Elbow Plate Sys - 1 - Screw Lock 2.7x26mm 202.226 Implanted:Qty: 1 on 06/24/2009 Screw Right: Elbow SYNTHES STRATEC 202.226 / / LOAD# [id number] Log 96210 - Synthes 3.5 Lcp Distal Humerus & Elbow Plate Sys - 1 - Screw Lock 2.7x30mm 202.230 Implanted:Qty: 1 on 06/24/2009 Screw Right: Elbow SYNTHES STRATEC 202.230 / / LOAD# [id number] Log 79550 - Synthes Small Frag Lcp Locking - 1 - Screw Sami Self Tap 3.5x18mm 204.818 Implanted:Qty: 1 on 06/24/2009 Screw Right: Elbow SYNTHES STRATEC 204.818 / / Care Teams Electrician Relationship Specialty Start Date End Date Trivedi, Marilyn Seals APN [address] [place] [address] PCP - General 06/23/09
--- OUTSIDE RECORDS SUMMARY | 2024-08-13 00:08 | XMS_ITS | Encounter Summary ---
Author Organization [facility] Address [address] [place] [address] Care Team Providers Care Director Of Consumer Affairs Name Role Phone Marilyn Trivedi APN Primary Care Provider [phone] Encounter Details Date Type Department Care Team (Latest Contact Info) Description 02/12/2006 Outpatient Historical [facility] Neurology [address], [address] [place] [address] Jorge Suero MD NO ADDRESS ON FILE Grand Mal, not Intractabl ([facility]/HCC) (Primary Dx); Common Migraine without Mention of Intractable Migraine Social History Tobacco Use Types Packs/Day Years Used Date Smoking Tobacco: Never Assessed Comments Unknown Sex and Gender Information Value Date Recorded Sex Assigned at Not on file Legal Sex Female 6: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 MANAGER 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 [facility] [address] [place] [address] PCP - General 06/23/09 documented as of this encounter
--- OUTSIDE RECORDS SUMMARY | 2024-08-13 00:08 | XMS_ITS | Encounter Summary ---
Author Organization [facility] Address [address] [place] [address] Care Team Providers Care Side Panel Padder Name Role Phone Marilyn Trivedi APN Primary Care Provider [phone] Encounter Details Date Type Department Care Team (Latest Contact Info) Description 06/10/2003 Outpatient Historical [facility] [address] [facility], [address] [place] [address] [place] [address] [place] [address] PSYCHO EPI INTRACTABLE (CMS/HCC) (Primary Dx) Social History Tobacco Use Types Packs/Day Years Used Date Smoking Tobacco: Never Assessed Comments Unknown Sex and Gender Information Value Date Recorded Sex Assigned at Not on file 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 [facility] [address] [place] [address] PCP - General 06/23/09 documented as of this encounter
--- OUTSIDE RECORDS SUMMARY | 2024-08-13 00:08 | XMS_ITS ---
Author Organization [facility] Address [address] [place] [address] Care Team Providers Care Costing Manager Name Role Phone TrivediNuris Primary Care Provider TRIVEDINURIS Unavailable Unavailable Encounters Encounter Location Date Provider Diagnosis [facility] [address] [place] [address] 08/12/2024 [facility] C. difficile diarrhe a A04.72 Assessments Encounter Date Diagnosis (ICD Code) Assessment Notes Treatment Notes Treatment Clinical Notes Section Notes 08/12/2024 C. difficile diarrhea (ICD-10 - A04.72) Plan Of Treatment Pending Test Test Name Order Date CDiff PCR Rfx C diff Toxin NAP/EPI 38451 , [id number] 08/12/2024 Next Appt Details Provider Name:Nuris [facility], 08/17/2024 11:20:00 AM, [address], [address], [place], [address], Progress Notes * LESLEE MELENDEZDOB:1955 (68 yo F)Acc No.[id number]:08/12/2024 Patient:?LESLEE MELENDEZ :1955???Age:68 Y???Sex:Female Address:[address] [place] [address] Subjective: * Chief Complaints: * ??? * Medical History:? * Surgical History:? * Hospitalization/Major Diagno stic Procedure:? * Medications:? Objective: * Vitals:? * Physical Examination:? Assessment: * Assessment: 1.?C. difficile diarrhea - A 04.72 (Primary)??? Plan: * Treatment: * Procedure Codes:? * true * Date:? Generated for Petey frederick/Willis/[place] on:?08/13/2024 12:07 AM CDT
--- OUTSIDE RECORDS SUMMARY | 2024-08-13 00:08 | XMS_ITS | Encounter Summary ---
Author Organization [facility] Address [address] [place] [address] Care Team Providers Care Glass Tube Bender Name Role Phone Marilyn Trivedi APN Primary Care Provider Encounter Details Date Type Department Care Team (Latest Contact Info) Description 03/19/2005 Outpatient Historical [facility] [address], [address] [place] [address] Jorge Suero MD NO ADDRESS ON FILE PSYCHO EPI INTRACTABLE (CMS/HCC) (Primary Dx); CVA; MENTAL RETARDATION NOS Social History Tobacco Use Types Packs/Day Years Used Date Smoking Tobacco: Never Assessed Comments Unknown Sex and Gender Information Value Date Recorded Sex Assigned at Not on file 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 Gender Identity Not on file Sexual Orientation Not on file documented as of this encounter Plan of Treatment Not on file documented as of this encounter Visit Diagnoses Diagnosis Localization-related (focal) (partial) epilepsy and epileptic syndromes with complex partial seizures, with intractable epilepsy (CMS/HCC)- Primary Localization-related (focal) (partial) epilepsy and epileptic syndromes with complex partial seizures, with intractable epilepsy CVA Unspecified cerebral artery occlusion with cerebral infarction Unspecified intellectual disabilities documented in this encounter Care Teams Glass Tube Bender Relationship Specialty Start Date End Date Marilyn Trivedi APN [address] [facility] [address] [place] [address] PCP - General 06/23/09 documented as of this encounter
--- OUTSIDE RECORDS SUMMARY | 2024-08-13 00:08 | XMS_ITS | Encounter Summary ---
Author Organization [facility] Address [address] [place] [address] Care Team Providers Care Order Caller Name Role Phone Marilyn Trivedi APN Primary Care Provider Encounter Details Date Type Department Care Team (Latest Contact Info) Description 01/04/2003 Outpatient Historical [facility] Gordo Glaser MD NO ADDRESS ON FILE EPILEPSY NOS INTRACTABLE (CMS/HCC) (Primary Dx) Social History Tobacco Use Types Packs/Day Years Used Date Smoking Tobacco: Never Assessed Comments Unknown Sex and Gender Information Value Date Recorded Sex Assigned at Not on file 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
[2024-08-13 03:47] LABS: C.Diff PCR (Lab) POSITIVE (Negative)
[2024-08-13] MEDS: heparin 5,000 unit/mL INJ 1 mL 5000 UNIT SUBCUT ×2 (05:20→16:15)
[2024-08-13] MEDS: levETIRAcetam 2,000 MG/200 ML PREMIX 400 MG IV ×2 (05:55→19:05)
[2024-08-13 06:08] LABS: Basophils % 0.2 %; Eosinophils # 0.2 10^3/uL (0.0-0.8); Eosinophils % 2.3 %; Lymphocytes % 11.6 %; Mean Corpuscular HGB Conc 30.3 g/dL (30-55); Mean Corpuscular Hemoglobin 32.6 pg (27-33); Mean Corpuscular Volume 107.4 fl (85-98); Monocytes # 0.4 10^3/uL (0.2-0.9); Monocytes % 4.1 %; Neutrophils # 7.07 10^3/uL (1.8-7.7); Neutrophils % 81.6 %; Nucleated Red Blood Cells % 0 %; Platelet Count 167 10^3/cmm (157-399); Red Blood Count 2.98 10^6/uL (3.85-5.65); Red Cell Distribution Width 13.6 % (12.1-15.1); White Blood Count 8.68 10^3/uL (3.29-11.43)
[2024-08-13 06:42] LABS: Alanine Aminotransferase 17 U/L (0-33); Albumin Level 2.9 g/dL (3.5-5.2); Alkaline Phosphatase 87 U/L (35-105); Anion Gap 12.7 (5-19); Aspartate Amino Transferase 18 U/L (0-32); Blood Urea Nitrogen 12 mg/dL (8-23); Calcium 8.1 mg/dL (8.5-10.5); Carbon Dioxide 24 mmol/L (22-29); Chloride 112 mmol/L (98-107); Globulin 2.6 g/dL (1.3-4.6); Glomerular Filtration Rate 99.1 mL/min (90-130); Glucose 85 mg/dL (65-115); Magnesium 1.7 mg/dL (1.7-2.3); Osmolality Calculated 299 mOsm/kg (285-295); Phosphorus 2.2 mg/dL (2.5-4.5); Potassium 3.7 mmol/L (3.5-5.1); Procalcitonin 0.09 ng/mL (0-0.5); Sodium 145 mmol/L (136-145); Total Bilirubin 0.4 mg/dL (0.15-1.2); Total Protein 5.5 g/dL (6.6-8.7)
[2024-08-13 06:43] LABS: Chol HDL Ratio 4.35 mg/dL (0.0-4.40); Cholesterol 148 mg/dL (0-200); HDL Cholesterol 34 mg/dL (60-100); LDL Cholesterol Calculated 70 mg/dL (50-129); LDL HDL Ratio 2.06 RATIO (0.00-3.22); Triglycerides 221 mg/dL (0-150)
[2024-08-13 07:07] LABS: Folate Level > 20.0 ng/mL (4.8-37.3)
[2024-08-13] MEDS: MEROPENEM 2,000 MG in sodium chloride 0.9% (plus) 50 ML 100 MG IV ×3 (07:12→23:42)
[2024-08-13] MEDS: sodium chloride 0.9% 1,000 ML 75 ML IV ×2 (08:20→23:42)
[2024-08-13] MEDS: albuterol 2.5 mg/3 mL Neb INHALATION ×2 (08:39→19:14)
[2024-08-13] MEDS: budesonide 0.5 mg/2 mL Neb INHALATION ×2 (08:39→19:14)
[2024-08-13] MEDS: BuSPIRONE 10 mg Tablet PO ×3 (09:53→22:19)
[2024-08-13] MEDS: zonisamide 100 MG Capsule PO ×2 (09:53→17:55)
[2024-08-13] MEDS: docusate sodium 100 mg Capsule PO ×2 (09:54→17:55)
[2024-08-13] MEDS: fidaxomicin 200 mg Tablet PO ×2 (09:54→17:55)
[2024-08-13] MEDS: tamsulosin 0.4 mg Capsule PO ×2 (09:54→17:55)
[2024-08-13] MEDS: sucralfate 1 gm/10 mL Oral Liq UDC PO ×2 (09:54→17:55)
[2024-08-13] MEDS: fluoxetine 20 mg Capsule PO (11:53)
--- NOTE | 2024-08-13 12:51 | P.PN_ITS ---
Subjective 2 Subjective: No acute events overnight. On examination today seen with caregiver at bedside. Patient is more awake and alert. Able to follow some directions. Able to take oral medications. Has remained hemodynamically stable and afebrile. No seizures appreciated. Vitals/I&O/Wt Last Vital Signs Temp 98.6 F 08/13/24 11:55 Pulse 89 08/13/24 11:55 Resp 15 08/13/24 11:55 BP 102/65 08/13/24 11:55 Pulse Ox 92 08/13/24 11:55 O2 Del Method Nasal Cannula 08/13/24 11:55 O2 Flow Rate 2 08/13/24 08:40 08/12/24 08/13/24 08/13/24 22:59 06:59 14:59 Intake Total 325 / 325 125 / 450 1260 / 1260 Output Total 400 / 400 650 / 1050 Balance -75 / -75 -525 / -600 1260 / 1260 Weight last 48 hrs Weight 57.924 kg Weight 57.924 kg Weight 57.181 kg Weight 56.699 kg Physical Exam 2 Narrative: General: No acute distress, awake, following simple commands, GCS-E4 M5 V1, maintaining sat on 2L HEENT: PERRLA, pupils bilaterally equal and reactive Chest: Normal vesicular breath sounds, no added sounds, equal good air entry bilaterally CVS: S1-S2 regular, no murmurs, no tachycardia, no gallops, no rubs Abdomen: Soft, nontender, no organomegaly, bowel sounds present Urinary Catheter Management: Vallecillo: Cath Placed During This Visit: yes Reason for Continuing Indwelling Catheter: Other Urinary Catheter Date of Insertion: 08/12/24 Urinary Catheter Time of Insertion: 12:08 Data 08/13/24 05:21 08/13/24 05:21 Micro: Microbiology 08/12/24 18:00 Urine Culture - Preliminary Urine,Clean Catch 08/12/24 14:09 Blood Culture - Preliminary Blood SPECIMEN COLLECTED 08/12/24 14:04 Blood Culture - Preliminary Blood SPECIMEN COLLECTED A&P Assessment and plan (1) Somnolence: (2) Altered mental status: Qualifiers: Altered mental status type: transient alteration of awareness Qualified Code(s): R40.4 - Transient alteration of awareness (3) Pseudomonas urinary tract infection: (4) Generalized epilepsy: (5) Brain injury: (6) 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 difficile positive on the stool studies at outside clinic yesterday. Altered mental status/somnolence: Unknown etiology. Could be multifactorial. Cannot rule out postictal state as patient has a history of seizure disorder and breakthrough seizures in the past. Dilantin levels are normal. Keppra levels, lacosamide level, zonisamide levels were not sent to [facility] today morning while they were ordered on admission. These levels will be not reliable anymore as patient had already received IV medications before the levels now. Prolactin levels within normal limits. Continue with IV antiseizure medications for now. Fall precaution, seizure precaution, aspiration precaution. Could be infectious metabolic encephalopathy given patient's history of recurrent UTI most recently with Pseudomonas and C. difficile tested positive on 08/11. Follow-up blood culture, urine culture. Respiratory viral panel negative. Appreciate urine drug screen. Appreciate positive C. difficile as an outpatient. Repeat CT during hospitalization also positive. Empirically start on IV meropenem 2 g every 8 hourly as per culture sensitivities from the past. Patient is allergic to Levaquin moreover would like to avoid as it would decrease seizure threshold. Continue with Dificid 200 mg twice daily. Hold off on Imodium. No electrolyte abnormality. Liver functions within normal limits. Appreciate CT head without any new abnormality. Does show chronic left frontal encephalomalacia. Normal saline at 75 cc/h. Could be in setting of polypharmacy. Patient is on multiple seizure medications as above. Is also on BuSpar 3 times daily and clonazepam 0.5 twice daily. For now continue home dose of BuSpar. Continue to hold off on clonazepam. IV Ativan 1 mg 30-minute as needed for seizure disorder. Continue with home dose of fluoxetine to 20 mg every afternoon. At home takes 30 mg. History of COPD: On 2 L. Also history of aspiration pneumonia. CODE STATUS: Patient has a state appointed guardian Ms. Mayte Villagomez. DNR/DNR as per documentation from the past. N.p.o. at diet as per speech evaluation from previous admission. Protonix OPD prophylaxis Heparin 5000 every 12 hourly for DVT prophylaxis Discharge plan: Plan to discharge in next 24 to 48 hours the patient's mentation remains at baseline. PDMP PDMP Reviewed: Last Reviewed 08/12/24 16:28 by Ajit Roberts MD Attestations 2 Medical Necessity Statement*: Requires further hospitalization for management of altered mental status/somnolence with concerns for postictal status in a patient with history of seizure disorder, TBI while toxic metabolic encephalopathy in setting of UTI and C. difficile is ruled out Diagnoses Somnolence R40.0 Altered mental status R40.4 Altered mental status type: transient alteration of awareness Pseudomonas urinary tract infection N39.0; B96.5 Generalized epilepsy G40.309 Brain injury S06.9X9A Encephalomalacia without cerebral infarction G93.89 Chronic indwelling Vallecillo catheter Z97.8
[2024-08-13] MEDS: pantoprazole 40 mg SDV IVP (16:13)
[2024-08-13 18:31] LABS: MRSA PCR OZH (swab) NOT DETECTED (Not Detecte)
[2024-08-14] VITALS (10 sets, daily range): BP systolic 100–114; BP diastolic 56–72; PULSE 75–87; RESP 16–20; TEMP 36.7–37.4; O2SAT 91–98
[2024-08-14] MEDS: MEROPENEM 2,000 MG in sodium chloride 0.9% (plus) 50 ML 100 MG IV (05:43)
[2024-08-14] MEDS: heparin 5,000 unit/mL INJ 1 mL 5000 UNIT SUBCUT ×2 (05:44→16:08)
[2024-08-14 05:49] LABS: Basophils % 0.4 %; Eosinophils # 0.1 10^3/uL (0.0-0.8); Eosinophils % 1.4 %; Hematocrit 28.9 % (36-47); Lymphocytes # 0.9 10^3/uL (0.8-4.8); Lymphocytes % 18.4 %; Mean Corpuscular HGB Conc 31.1 g/dL (30-55); Mean Corpuscular Volume 105.9 fl (85-98); Mean Platelet Volume 9.8 fL (7.4-10.4); Monocytes # 0.3 10^3/uL (0.2-0.9); Monocytes % 6.8 %; Neutrophils # 3.52 10^3/uL (1.8-7.7); Neutrophils % 72.2 %; Nucleated Red Blood Cells % 0 %; Platelet Count 147 10^3/cmm (157-399); Red Blood Count 2.73 10^6/uL (3.85-5.65); Red Cell Distribution Width 13.4 % (12.1-15.1); White Blood Count 4.88 10^3/uL (3.29-11.43)
[2024-08-14 06:18] LABS: Alanine Aminotransferase 16 U/L (0-33); Albumin Level 2.8 g/dL (3.5-5.2); Alkaline Phosphatase 76 U/L (35-105); Anion Gap 11.3 (5-19); Aspartate Amino Transferase 25 U/L (0-32); Blood Urea Nitrogen 7 mg/dL (8-23); Calcium 7.7 mg/dL (8.5-10.5); Carbon Dioxide 24 mmol/L (22-29); Chloride 108 mmol/L (98-107); Globulin 2.4 g/dL (1.3-4.6); Glomerular Filtration Rate 122.3 mL/min (90-130); Glucose 98 mg/dL (65-115); Magnesium 1.7 mg/dL (1.7-2.3); Osmolality Calculated 288 mOsm/kg (285-295); Phosphorus 1.9 mg/dL (2.5-4.5); Potassium 3.3 mmol/L (3.5-5.1); Sodium 140 mmol/L (136-145); Total Bilirubin 0.4 mg/dL (0.15-1.2); Total Protein 5.2 g/dL (6.6-8.7)
[2024-08-14] MEDS: albuterol 2.5 mg/3 mL Neb INHALATION (07:57)
[2024-08-14] MEDS: budesonide 0.5 mg/2 mL Neb INHALATION ×2 (07:57→21:53)
[2024-08-14] MEDS: docusate sodium 100 mg Capsule PO (08:53)
[2024-08-14] MEDS: BuSPIRONE 10 mg Tablet PO ×3 (08:53→20:59)
[2024-08-14] MEDS: zonisamide 100 MG Capsule PO ×2 (08:53→17:51)
[2024-08-14] MEDS: tamsulosin 0.4 mg Capsule PO ×2 (08:53→17:51)
[2024-08-14] MEDS: sucralfate 1 gm/10 mL Oral Liq UDC PO ×2 (08:53→17:51)
[2024-08-14] MEDS: fidaxomicin 200 mg Tablet PO ×2 (08:54→17:51)
[2024-08-14] MEDS: levETIRAcetam 2,000 MG/200 ML PREMIX 400 MG IV (08:54)
--- NOTE | 2024-08-14 09:14 | PC.SOCIAL ---
IMM Update Pg. 2 of IMM updated; copy provided at bedside.
--- NOTE | 2024-08-14 11:10 | P.PN_ITS ---
Subjective 2 Subjective: No acute events overnight. As per the caregiver at bedside she did have an episode of 1 seizure overnight. As per the caregiver she was confused for an hour post seizure. As per nursing staff because of witnessed event by respiratory therapist and they were not concerned about seizures. Otherwise patient has remained hemodynamically stable and afebrile. Vitals/I&O/Wt Last Vital Signs Temp 98.6 F 08/14/24 08:00 Pulse 87 08/14/24 08:11 Resp 17 08/14/24 08:00 BP 114/72 08/14/24 08:00 Pulse Ox 92 08/14/24 08:00 O2 Del Method Nasal Cannula 08/14/24 08:00 O2 Flow Rate 2 08/14/24 07:59 08/13/24 08/14/24 08/14/24 22:59 06:59 14:59 Intake Total 1805 / 3065 60 / 3125 325 / 325 Output Total 750 / 750 800 / 1550 Balance 1055 / 2315 -740 / 1575 325 / 325 Weight last 48 hrs Weight 57.606 kg Weight 57.924 kg Weight 57.924 kg Weight 57.181 kg Weight 56.699 kg Physical Exam 2 Narrative: General: No acute distress, awake, following simple commands, GCS-E4 M5 V1, maintaining sat on 2L HEENT: PERRLA, pupils bilaterally equal and reactive Chest: Normal vesicular breath sounds, no added sounds, equal good air entry bilaterally CVS: S1-S2 regular, no murmurs, no tachycardia, no gallops, no rubs Abdomen: Soft, nontender, no organomegaly, bowel sounds present Urinary Catheter Management: Vallecillo: Cath Placed During This Visit: yes Reason for Continuing Indwelling Catheter: Chronic Indwelling Urinary Catheter on Admission Urinary Catheter Date of Insertion: 08/12/24 Urinary Catheter Time of Insertion: 12:08 Data 08/14/24 05:32 08/14/24 05:32 Micro: Microbiology 08/12/24 18:00 Urine Culture - Final Urine,Clean Catch 08/14/24 05:36 Blood Culture - Preliminary Blood SPECIMEN COLLECTED 08/14/24 05:32 Blood Culture - Preliminary Blood SPECIMEN COLLECTED 08/12/24 14:04 Blood Culture - Preliminary Blood Staphylococcus species 08/12/24 14:09 Blood Culture - Preliminary Blood NEGATIVE TO DATE A&P Assessment and plan (1) Somnolence: (2) Altered mental status: Qualifiers: Altered mental status type: transient alteration of awareness Qualified Code(s): R40.4 - Transient alteration of awareness (3) Pseudomonas urinary tract infection: (4) Generalized epilepsy: (5) Brain injury: (6) 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 difficile positive on the stool studies at outside clinic yesterday. Altered mental status/somnolence: Resolved. Could be in setting of postictal status versus polypharmacy. Dilantin levels are normal. Keppra levels, lacosamide level, zonisamide levels were not sent to [facility] today morning while they were ordered on admission. These levels will be not reliable anymore as patient had already received IV medications before the levels now. Prolactin levels within normal limits. Switch from IV to oral medications at home doses and timing. Fall precaution, seizure precaution, aspiration precaution. Could be infectious metabolic encephalopathy given patient's history of recurrent UTI most recently with Pseudomonas and C. difficile tested positive on 08/11. Blood culture from admission positive for Staphylococcus species. 1 out of 3 bottles. Cannot rule out contamination. Repeat blood culture sent on 08/14. Will follow-up. MRSA swab negative. Urine culture negative. Respiratory viral panel negative. Appreciate urine drug screen. Appreciate positive C. difficile as an outpatient. Empirically start on IV meropenem 2 g every 8 hourly as per culture sensitivities from the past. Patient is allergic to Levaquin moreover would like to avoid as it would decrease seizure threshold. Continue with Dificid 200 mg twice daily. Hold off on Imodium. Patient having bowel movements now. Will hold off on stool softeners. No electrolyte abnormality. Liver functions within normal limits. Appreciate CT head without any new abnormality. Does show chronic left frontal encephalomalacia. Patient able to take orally well. Stop IV fluids. Could be in setting of polypharmacy. Patient is on multiple seizure medications as above. Is also on BuSpar 3 times daily and clonazepam 0.5 twice daily. For now continue home dose of BuSpar. Continue to hold off on clonazepam. IV Ativan 1 mg 30-minute as needed for seizure disorder. Continue with home dose of fluoxetine to 20 mg every afternoon. At home takes 30 mg. History of COPD: On 2 L. Also history of aspiration pneumonia. CODE STATUS: Patient has a state appointed guardian Ms. Mayte Villagomez. DNR/DNI as per documentation from the past. N.p.o. at diet as per speech evaluation from previous admission. Protonix for PUD prophylaxis Heparin 5000 every 12 hourly for DVT prophylaxis Discharge plan: Plan to discharge in next 24 to 48 hours the patient's mentation remains at baseline. PDMP PDMP Reviewed: Last Reviewed 08/12/24 16:28 by Ajit Roberts MD Attestations 2 Medical Necessity Statement*: Requires further hospitalization for management of altered mental status in setting of seizure disorder, bacteremia while contamination is ruled out in a patient with history of traumatic brain injury Diagnoses Somnolence R40.0 Altered mental status R40.4 Altered mental status type: transient alteration of awareness Pseudomonas urinary tract infection N39.0; B96.5 Generalized epilepsy G40.309 Brain injury S06.9X9A Encephalomalacia without cerebral infarction G93.89 Chronic indwelling Vallecillo catheter Z97.8 Bacteremia R78.81
[2024-08-14] MEDS: fluoxetine 20 mg Capsule PO (12:00)
[2024-08-14] MEDS: meropenem 1,000 MG in sodium chloride 0.9% (plus) 50 ML 100 MG IV ×2 (14:41→22:30)
[2024-08-14] MEDS: lanolin oint 7 gm 1 APPLIC TOPICAL ×2 (15:03→21:01)
[2024-08-14] MEDS: pantoprazole 40 mg SDV IVP (16:07)
[2024-08-14] MEDS: fluoxetine 10 mg Capsule PO (16:07)
[2024-08-14] MEDS: lacosamide 50 mg Tablet 150 MG PO (17:50)
[2024-08-14] MEDS: levETIRAcetam 500 mg Tablet 2000 MG PO (17:51)
[2024-08-14] MEDS: PHENYTOIN 50 MG 50 EACH PO (20:59)
[2024-08-15] VITALS (7 sets, daily range): BP systolic 90–120; BP diastolic 53–78; PULSE 67–85; RESP 15–21; TEMP 36.3–37.1; O2SAT 93–99
[2024-08-15] MEDS: heparin 5,000 unit/mL INJ 1 mL 5000 UNIT SUBCUT ×2 (03:48→17:11)
[2024-08-15 05:55] LABS: Basophils % 0.4 %; Eosinophils # 0.3 10^3/uL (0.0-0.8); Eosinophils % 4.8 %; Hematocrit 30.5 % (36-47); Lymphocytes # 1.7 10^3/uL (0.8-4.8); Lymphocytes % 31.9 %; Mean Corpuscular HGB Conc 31.5 g/dL (30-55); Mean Corpuscular Hemoglobin 32.9 pg (27-33); Mean Corpuscular Volume 104.5 fl (85-98); Mean Platelet Volume 10.4 fL (7.4-10.4); Monocytes # 0.4 10^3/uL (0.2-0.9); Monocytes % 8.1 %; Neutrophils # 2.91 10^3/uL (1.8-7.7); Neutrophils % 53.7 %; Nucleated Red Blood Cells % 0 %; Platelet Count 141 10^3/cmm (157-399); Red Blood Count 2.92 10^6/uL (3.85-5.65); Red Cell Distribution Width 13.2 % (12.1-15.1); White Blood Count 5.42 10^3/uL (3.29-11.43)
[2024-08-15] MEDS: meropenem 1,000 MG in sodium chloride 0.9% (plus) 50 ML 100 MG IV (06:07)
[2024-08-15 06:20] LABS: Alanine Aminotransferase 16 U/L (0-33); Alkaline Phosphatase 88 U/L (35-105); Anion Gap 10.5 (5-19); Aspartate Amino Transferase 28 U/L (0-32); Blood Urea Nitrogen 5 mg/dL (8-23); Calcium 8.1 mg/dL (8.5-10.5); Carbon Dioxide 27 mmol/L (22-29); Chloride 106 mmol/L (98-107); Globulin 2.8 g/dL (1.3-4.6); Glomerular Filtration Rate 99.1 mL/min (90-130); Glucose 90 mg/dL (65-115); Magnesium 1.9 mg/dL (1.7-2.3); Osmolality Calculated 287 mOsm/kg (285-295); Phosphorus 1.6 mg/dL (2.5-4.5); Potassium 3.5 mmol/L (3.5-5.1); Sodium 140 mmol/L (136-145); Total Bilirubin 0.4 mg/dL (0.15-1.2); Total Protein 5.8 g/dL (6.6-8.7)
[2024-08-15] MEDS: PHENYTOIN 50 MG 50 EACH PO ×3 (08:30→20:19)
[2024-08-15] MEDS: sucralfate 1 gm/10 mL Oral Liq UDC PO ×2 (08:31→17:12)
[2024-08-15] MEDS: lacosamide 50 mg Tablet 150 MG PO ×2 (08:32→17:12)
[2024-08-15] MEDS: fidaxomicin 200 mg Tablet PO ×2 (08:32→17:12)
[2024-08-15] MEDS: levETIRAcetam 500 mg Tablet 2000 MG PO ×2 (08:32→17:12)
[2024-08-15] MEDS: tamsulosin 0.4 mg Capsule PO ×2 (08:33→17:12)
[2024-08-15] MEDS: zonisamide 100 MG Capsule PO ×2 (08:33→17:12)
[2024-08-15] MEDS: BuSPIRONE 10 mg Tablet PO ×3 (08:34→20:19)
[2024-08-15] MEDS: budesonide 0.5 mg/2 mL Neb INHALATION ×2 (09:13→19:34)
[2024-08-15] MEDS: albuterol 2.5 mg/3 mL Neb INHALATION ×2 (09:13→19:34)
[2024-08-15 11:19] LABS: Levetiracetam Immunoassy 63.8 mcg/mL (6.0-46.0)
[2024-08-15] MEDS: fluoxetine 10 mg Capsule PO (13:03)
[2024-08-15] MEDS: fluoxetine 20 mg Capsule PO (13:03)
--- NOTE | 2024-08-15 14:30 | P.PN_ITS ---
Subjective 2 Subjective: No Overnight. Seen with caregiver at bedside. As per the caregiver she has had multiple seizure-like activity since today morning which would usually last for 5 to 10 seconds. Usually she is at her baseline mentation around the events. As per nursing staff they have not noticed any postictal state. Otherwise patient has remained hemodynamically stable and afebrile. While discussing and examining the patient she was sleeping. She has an event while sleeping when she would like to stretch her arms and legs and yawn. During the event patient opened her eyes and blink her eyes multiple times. Patient seemed to wake up appropriately post the event. Patient did not have any bowel or bladder accidents. Remained at her baseline mentation. Vitals/I&O/Wt Last Vital Signs Temp 97.6 F 08/15/24 11:55 Pulse 74 08/15/24 11:55 Resp 15 08/15/24 11:55 BP 98/63 08/15/24 11:55 Pulse Ox 94 08/15/24 11:55 O2 Del Method Nasal Cannula 08/15/24 11:55 O2 Flow Rate 2 08/15/24 08:00 08/14/24 08/15/24 08/15/24 22:59 06:59 14:59 Intake Total 180 / 1425 100 / 1525 120 / 120 Output Total 675 / 675 800 / 1475 Balance -495 / 750 -700 / 50 120 / 120 Weight last 48 hrs Weight 62.55 kg Weight 57.606 kg Physical Exam 2 Narrative: General: No acute distress, awake, following simple commands, GCS-E4 M5 V2, maintaining sat on 2L HEENT: PERRLA, pupils bilaterally equal and reactive Chest: Normal vesicular breath sounds, no added sounds, equal good air entry bilaterally CVS: S1-S2 regular, no murmurs, no tachycardia, no gallops, no rubs Abdomen: Soft, nontender, no organomegaly, bowel sounds present Urinary Catheter Management: Vallecillo: Cath Placed During This Visit: yes Reason for Continuing Indwelling Catheter: Chronic Indwelling Urinary Catheter on Admission Urinary Catheter Date of Insertion: 08/12/24 Urinary Catheter Time of Insertion: 12:08 Data 08/15/24 05:22 08/15/24 05:22 Micro: Microbiology 08/14/24 05:36 Blood Culture - Preliminary Blood NEGATIVE TO DATE 08/14/24 05:32 Blood Culture - Preliminary Blood NEGATIVE TO DATE 08/12/24 14:04 Blood Culture - Preliminary Blood Staphylococcus sp coag neg A&P Assessment and plan (1) Somnolence: (2) Altered mental status: Qualifiers: Altered mental status type: transient alteration of awareness Qualified Code(s): R40.4 - Transient alteration of awareness (3) Pseudomonas urinary tract infection: (4) Generalized epilepsy: (5) Brain injury: (6) 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 difficile positive on the stool studies at outside clinic yesterday. Altered mental status/somnolence: Resolved. Could be in setting of postictal status versus polypharmacy. Dilantin levels are normal. Keppra levels, lacosamide level, zonisamide levels were not sent to [facility] today morning while they were ordered on admission. These levels will be not reliable anymore as patient had already received IV medications before the levels now. Prolactin levels within normal limits. Switch from IV to oral medications at home doses and timing. Fall precaution, seizure precaution, aspiration precaution. Could be infectious metabolic encephalopathy given patient's history of recurrent UTI most recently with Pseudomonas and C. difficile tested positive on 08/11. Blood culture from admission positive for Staphylococcus species. 1 out of 3 bottles. Cannot rule out contamination. Repeat blood culture sent on 08/14. Will follow-up. MRSA swab negative. Urine culture negative. Respiratory viral panel negative. Appreciate urine drug screen. Appreciate positive C. difficile as an outpatient. Empirically start on IV meropenem 2 g every 8 hourly as per culture sensitivities from the past. Patient is allergic to Levaquin moreover would like to avoid as it would decrease seizure threshold. Continue with Dificid 200 mg twice daily. Hold off on Imodium. Patient having bowel movements now. Will hold off on stool softeners. No electrolyte abnormality. Liver functions within normal limits. Appreciate CT head without any new abnormality. Does show chronic left frontal encephalomalacia. Patient able to take orally well. Stop IV fluids. Could be in setting of polypharmacy. Patient is on multiple seizure medications as above. Is also on BuSpar 3 times daily and clonazepam 0.5 twice daily. For now continue home dose of BuSpar. Continue to hold off on clonazepam. IV Ativan 1 mg 30-minute as needed for seizure disorder. Continue with home dose of fluoxetine to 20 mg every afternoon. At home takes 30 mg. History of COPD: On 2 L. Also history of aspiration pneumonia. CODE STATUS: Patient has a state appointed guardian Ms. Mayte Villagomez. DNR/DNI as per documentation from the past. N.p.o. at diet as per speech evaluation from previous admission. Protonix for PUD prophylaxis Heparin 5000 every 12 hourly for DVT prophylaxis Discharge plan: Plan to discharge in next 24 to 48 hours the patient's mentation remains at baseline. Plan for the day: Repeat blood culture and urine culture negative. Blood culture 1 out of 4 bottles from admission positive for coag negative staph. Most likely a contaminant. Appreciate Keppra levels though unreliable as above taken after she started on IV Keppra. Patient transition to home dose of oral Keppra medications yesterday. Tolerating well. Patient seems to be more awake and alert. Seems to be at her baseline mentation. Continue to hold off on clonazepam. Stop meropenem. Switch to IV ceftriaxone 1 g daily. Discussed in detail with patient's caregiver at bedside that the events but if she does not make it seems more like normal stretching of the body versus pseudoseizures though there is no way to confirm until patient has a 24-hour EEG. Discussed for her seizures she would have postictal time after the event. Caregiver verbalizes understanding. She states that patient has an appointment with an outpatient neurologist who was also considering the same and had suggested patient to be admitted to the hospital for few days while holding off on all antiepileptics and doing continuous EEG. Patient's appointment with the neurologist is on September 30. Continue with oral fidaxomicin. PDMP PDMP Reviewed: Last Reviewed 08/12/24 16:28 by Ajit Roberts MD Attestations 2 Medical Necessity Statement*: Requires further hospitalization for management repeat blood cultures are awaited with initial coag negative Staphylococcus from admission blood cultures in a patient initially admitted for altered mental status in setting of postictal status in a patient with history of seizure disorder because of TBI Diagnoses Somnolence R40.0 Altered mental status R40.4 Altered mental status type: transient alteration of awareness Pseudomonas urinary tract infection N39.0; B96.5 Generalized epilepsy G40.309 Brain injury S06.9X9A Encephalomalacia without cerebral infarction G93.89 Chronic indwelling Vallecillo catheter Z97.8 Bacteremia R78.81
[2024-08-15] MEDS: cefTRIAXone 1,000 mg SDV 1000 MG IVP (15:22)
[2024-08-15] MEDS: pantoprazole 40 mg SDV IVP (17:11)
[2024-08-16] VITALS (8 sets, daily range): BP systolic 105–129; BP diastolic 60–85; PULSE 64–80; RESP 18–19; TEMP 36.6–37.3; O2SAT 90–97
[2024-08-16] MEDS: heparin 5,000 unit/mL INJ 1 mL 5000 UNIT SUBCUT ×2 (03:48→15:57)
[2024-08-16] MEDS: budesonide 0.5 mg/2 mL Neb INHALATION (07:31)
[2024-08-16] MEDS: albuterol 2.5 mg/3 mL Neb INHALATION (07:31)
[2024-08-16] MEDS: lacosamide 50 mg Tablet 150 MG PO ×2 (08:18→17:22)
[2024-08-16] MEDS: zonisamide 100 MG Capsule PO ×2 (08:18→17:22)
[2024-08-16] MEDS: tamsulosin 0.4 mg Capsule PO ×2 (08:18→17:21)
[2024-08-16] MEDS: BuSPIRONE 10 mg Tablet PO ×3 (08:18→20:48)
[2024-08-16] MEDS: sucralfate 1 gm/10 mL Oral Liq UDC PO ×2 (08:18→17:22)
[2024-08-16] MEDS: levETIRAcetam 500 mg Tablet 2000 MG PO ×2 (08:18→17:22)
[2024-08-16] MEDS: fidaxomicin 200 mg Tablet PO ×2 (08:19→17:22)
[2024-08-16] MEDS: PHENYTOIN 50 MG 50 EACH PO ×3 (08:20→20:48)
[2024-08-16] MEDS: acetaminophen 325 mg Tablet 650 MG PO (09:57)
[2024-08-16] MEDS: fluoxetine 10 mg Capsule PO (11:30)
[2024-08-16] MEDS: fluoxetine 20 mg Capsule PO (11:30)
--- NOTE | 2024-08-16 13:16 | P.PN_ITS ---
Subjective 2 Subjective: No acute events overnight. No further seizure like activity reported by the caregivers per nursing staff overnight. Patient on examination awake and alert at her baseline. Has remained hemodynamically stable and afebrile. Vitals/I&O/Wt Last Vital Signs Temp 99.2 F 08/16/24 12:00 Pulse 69 08/16/24 12:00 Resp 18 08/16/24 12:00 BP 105/67 08/16/24 12:00 Pulse Ox 95 08/16/24 12:00 O2 Del Method Nasal Cannula 08/16/24 12:00 O2 Flow Rate 2 08/16/24 07:34 08/15/24 08/16/24 08/16/24 22:59 06:59 14:59 Intake Total 120 / 240 480 / 480 Output Total 1100 / 1100 Balance -980 / -860 480 / 480 Weight last 48 hrs Weight 61.28 kg Weight 62.55 kg Physical Exam 2 Narrative: General: No acute distress, awake, following simple commands, GCS-E4 M5 V2, maintaining sat on 2L HEENT: PERRLA, pupils bilaterally equal and reactive Chest: Normal vesicular breath sounds, no added sounds, equal good air entry bilaterally CVS: S1-S2 regular, no murmurs, no tachycardia, no gallops, no rubs Abdomen: Soft, nontender, no organomegaly, bowel sounds present Urinary Catheter Management: Vallecillo: Cath Placed During This Visit: yes Reason for Continuing Indwelling Catheter: Chronic Indwelling Urinary Catheter on Admission Urinary Catheter Date of Insertion: 08/12/24 Urinary Catheter Time of Insertion: 12:08 Data 08/15/24 05:22 08/15/24 05:22 Micro: Microbiology 08/12/24 14:04 Blood Culture - Preliminary Blood Staphylococcus haemolyticus A&P Assessment and plan (1) Somnolence: (2) Altered mental status: Qualifiers: Altered mental status type: transient alteration of awareness Qualified Code(s): R40.4 - Transient alteration of awareness (3) Pseudomonas urinary tract infection: (4) Generalized epilepsy: (5) Brain injury: (6) 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 difficile positive on the stool studies at outside clinic yesterday. Altered mental status/somnolence: Resolved. Could be in setting of postictal status versus polypharmacy. Dilantin levels are normal. Keppra levels, lacosamide level, zonisamide levels were not sent to [facility] today morning while they were ordered on admission. These levels will be not reliable anymore as patient had already received IV medications before the levels now. Prolactin levels within normal limits. Switch from IV to oral medications at home doses and timing. Fall precaution, seizure precaution, aspiration precaution. Could be infectious metabolic encephalopathy given patient's history of recurrent UTI most recently with Pseudomonas and C. difficile tested positive on 08/11. Blood culture from admission positive for Staphylococcus species. 1 out of 3 bottles. Cannot rule out contamination. Repeat blood culture sent on 08/14. Will follow-up. MRSA swab negative. Urine culture negative. Respiratory viral panel negative. Appreciate urine drug screen. Appreciate positive C. difficile as an outpatient. Empirically start on IV meropenem 2 g every 8 hourly as per culture sensitivities from the past. Patient is allergic to Levaquin moreover would like to avoid as it would decrease seizure threshold. Continue with Dificid 200 mg twice daily. Hold off on Imodium. Patient having bowel movements now. Will hold off on stool softeners. No electrolyte abnormality. Liver functions within normal limits. Appreciate CT head without any new abnormality. Does show chronic left frontal encephalomalacia. Patient able to take orally well. Stop IV fluids. Could be in setting of polypharmacy. Patient is on multiple seizure medications as above. Is also on BuSpar 3 times daily and clonazepam 0.5 twice daily. For now continue home dose of BuSpar. Continue to hold off on clonazepam. IV Ativan 1 mg 30-minute as needed for seizure disorder. Continue with home dose of fluoxetine to 20 mg every afternoon. At home takes 30 mg. History of COPD: On 2 L. Also history of aspiration pneumonia. CODE STATUS: Patient has a state appointed guardian Ms. Mayte Villagomez. DNR/DNI as per documentation from the past. N.p.o. at diet as per speech evaluation from previous admission. Protonix for PUD prophylaxis Heparin 5000 every 12 hourly for DVT prophylaxis Discharge plan: Plan to discharge in next 24 to 48 hours the patient's mentation remains at baseline. Plan for the day: Repeat blood cultures so far negative. Urine cultures have remained negative. Continue with oral antiseizure medications. Continue with oral fidaxomicin. Continue with IV ceftriaxone. Monitor renal functions. Discharge plan: Plan to discharge in next 24 hours back to custodial if repeat blood cultures remain negative. Patient will be discharged on oral fidaxomicin to finish a 10-day course. PDMP PDMP Reviewed: Last Reviewed 08/12/24 16:28 by Ajit Roberts MD Attestations 2 Medical Necessity Statement*: Requires further hospitalization for management of Staphylococcus bacteremia while repeat blood cultures are awaited to rule out contamination, altered mental status in setting of postictal status in a patient with baseline history of seizure disorder due to TBI, C. difficile Diagnoses Somnolence R40.0 Altered mental status R40.4 Altered mental status type: transient alteration of awareness Pseudomonas urinary tract infection N39.0; B96.5 Generalized epilepsy G40.309 Brain injury S06.9X9A Encephalomalacia without cerebral infarction G93.89 Chronic indwelling Vallecillo catheter Z97.8 Bacteremia R78.81
[2024-08-16] MEDS: cefTRIAXone 1,000 mg SDV 1000 MG IVP (13:20)
[2024-08-16] MEDS: pantoprazole 40 mg SDV IVP (15:57)
[2024-08-17] MEDS: heparin 5,000 unit/mL INJ 1 mL 5000 UNIT SUBCUT (03:54)
[2024-08-17 04:00] VITALS: BP 113/61; PULSE 69; RESP 17; TEMP 36.6; O2SAT 93
[2024-08-17] MEDS: ondansetron 2 mg/ML SDV 2 mL 4 MG IVP (04:02)
[2024-08-17 08:00] VITALS: BP 116/71; PULSE 74; RESP 19; TEMP 36.4; O2SAT 94
[2024-08-17] MEDS: budesonide 0.5 mg/2 mL Neb INHALATION (08:46)
[2024-08-17] MEDS: albuterol 2.5 mg/3 mL Neb INHALATION (08:46)
[2024-08-17 08:47] VITALS: PULSE 69; RESP 16; O2SAT 93
[2024-08-17] MEDS: sucralfate 1 gm/10 mL Oral Liq UDC PO (09:21)
[2024-08-17] MEDS: zonisamide 100 MG Capsule PO (09:21)
[2024-08-17] MEDS: lacosamide 50 mg Tablet 150 MG PO (09:21)
[2024-08-17] MEDS: fidaxomicin 200 mg Tablet PO (09:21)
[2024-08-17] MEDS: levETIRAcetam 500 mg Tablet 2000 MG PO (09:21)
[2024-08-17] MEDS: BuSPIRONE 10 mg Tablet PO (09:21)
[2024-08-17] MEDS: tamsulosin 0.4 mg Capsule PO (09:21)
[2024-08-17] MEDS: PHENYTOIN 50 MG 50 EACH PO (09:22)
[2024-08-17] MEDS: CLONazepam 0.5 mg Tablet 0.25 MG PO (10:32)
--- NOTE | 2024-08-17 10:54 | P.DS_ITS ---
Discharge Providers Date of Admission: 08/12/24 16:02 Date of Discharge: August 17, 2024 Attending Provider at Admission: Ajit Roberts MD Attending Provider at Discharge: Frederic Joseph MD Primary Care Provider: Marilyn Trivedi APN Diagnoses at Discharge Discharge Diagnosis (1) Somnolence: Status: Acute (2) Altered mental status: Status: Acute Qualifiers: Altered mental status type: transient alteration of awareness Qualified Code(s): R40.4 - Transient alteration of awareness (3) Pseudomonas urinary tract infection: Status: Acute (4) Generalized epilepsy: Status: Acute (5) Brain injury: Status: Acute (6) Encephalomalacia without cerebral infarction: Status: Acute (7) Chronic indwelling Vallecillo catheter: Status: Acute (8) Bacteremia: Status: Acute Reason for Visit Reason for Visit: lethargic, n/v/d, cough Hospital Course Hospital Course This is a 68-year-old female with a past medical history of seizure disorder, history of breakthrough seizures, due to altered mental status Patient was admitted to [facility] for C. difficile colitis, received Dificid, overall clinically improved, will be discharged on Pradaxa mycin for the next 7 days There was also concerns for UTI, she received IV antibiotics, urine culture so far-negative She was found to have staphylococcal hemolyticus 1 out of 3 positive blood cultures, likely contamination, as she remains afebrile, MRSA nares negative, and her repeat blood cultures have been negative. For concerns for breakthrough seizures, initially clonazepam was held due to concerns for altered mental status, however due to concerns for recurrent breakthrough seizures it was resumed. She will be resumed on her home regimen of seizure medications, with a close follow-up with her neurologist as outpatient. On discharge she is alert, awake, can follow some commands, according to caregiver at bedside she is back to her baseline. Physical Exam Const: COMMON NORMALS: no acute distress ORIENTATION/CONSCIOUSNESS: Yes awake and Yes oriented to person Resp: COMMON NORMALS: normal respiratory effort, No retractions, No use of accessory muscles and clear to auscultation bilaterally AUSCULTATION: clear to auscultation bilaterally Cardio: COMMON NORMALS: regular rate, regular rhythm, S1 normal heart sound present and S2 normal heart sound present RATE: regular rate RHYTHM: regular rhythm HEART SOUNDS: S1 normal heart sound present and S2 normal heart sound present GI: COMMON NORMALS: Normal to inspection, nondistended, normoactive bowel sounds present and non-tender Extremity: COMMON NORMALS: no pedal edema Neuro: SENSORIUM/ORIENTATION: Yes oriented to person Urinary Catheter Management: Vallecillo: Cath Placed During This Visit: yes Reason for Continuing Indwelling Catheter: Chronic Indwelling Urinary Catheter on Admission Urinary Catheter Date of Insertion: 08/12/24 Urinary Catheter Time of Insertion: 12:08 Discharge Data Studies Completed and Pending Completed Studies During Hospitalization Category Date Time Status CT abdomen pelvis wo con [id number] Stat Cat Scan 08/12/24 13:[address] head wo con* [id number] Stat Cat Scan 08/12/24 13:18 Completed XR chest 1V portable [id number] Stat Exams 08/12/24 13:17 Completed Pending at discharge Category Date Time Status Blood Culture AM LABS Lab 08/14/24 05:36 Results Blood Culture Stat Lab 08/12/24 14:04 Results Lacosamide (Vimpat) Routine Lab 08/12/24 05:21 Received Zonisamide (Zonegran) Stat Lab 08/12/24 05:21 Received Radiology Impressions Chest X-Ray 08/12/24 13:17 Impression: Cardiomegaly and atherosclerosis. Abdomen/Pelvis CT 08/12/24 13:18 IMPRESSION: 1. Very mild submucosal edema in the distal colon. No significant pericolonic stranding or obstruction. 2. No ascites or free air. 3. Breathing motion artifact. 4. Vallecillo catheter in a nondistended bladder. 5. No renal obstruction. Head CT 08/12/24 13:18 IMPRESSION: 1. No acute intracranial hemorrhage or edema. 2. 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 3. Severe cerebellar atrophy. 4. Moderate small vessel ischemic disease. Laboratory Results WBC 5.42 10^3/uL (3.29-11.43) 08/15/24 05:22 RBC 2.92 10^6/uL (3.85-5.65) L 08/15/24 05:22 Hgb 9.60 g/dL (11.27-16.99) L 08/15/24 05:22 Hct 30.5 % (36-47) L 08/15/24 05:22 MCV 104.5 fl (85-98) H 08/15/24 05:22 MCH 32.9 pg (27-33) 08/15/24 05:22 MCHC 31.5 g/dL (30-55) 08/15/24 05:22 RDW 13.2 % (12.1-15.1) 08/15/24 05:22 Plt Count 141 10^3/cmm (157-399) L 08/15/24 05:22 MPV 10.4 fL (7.4-10.4) 08/15/24 05:22 Neut % (Auto) 53.7 % 08/15/24 05:22 Lymph % (Auto) 31.9 % 08/15/24 05:22 [place] % (Auto) 8.1 % 08/15/24 05:22 Eos % (Auto) 4.8 % 08/15/24 05:22 Baso % (Auto) 0.4 % 08/15/24 05:22 Neut # (Auto) 2.91 10^3/uL (1.8-7.7) 08/15/24 05:22 Lymph # (Auto) 1.7 10^3/uL (0.8-4.8) 08/15/24 05:22 [place] # (Auto) 0.4 10^3/uL (0.2-0.9) 08/15/24 05:22 Eos # (Auto) 0.3 10^3/uL (0.0-0.8) 08/15/24 05:22 Baso # (Auto) 0.0 10^3/uL (0.0-0.1) 08/15/24 05:22 Nucleated RBC % (auto) 0 % 08/15/24 05:22 Nucleated RBCs # 0.0 /100WBC 08/15/24 05:22 Specimen Type Arterial 08/12/24 13:50 Sample Site Radial, right 08/12/24 13:50 ABG pH 7.34 (7.35-7.45) L 08/12/24 13:50 ABG pCO2 48.1 mmHg (35-45) H 08/12/24 13:50 ABG pO2 85.3 mmHg (80.0-100.0) 08/12/24 13:50 ABG PO2/FiO2 Ratio 304 08/12/24 13:50 ABG HCO3 25.6 mmol/L (22-26) 08/12/24 13:50 ABG O2 Saturation 94.1 08/12/24 13:50 ABG Base Excess -0.6 mmol/L (-2.0-2.0) 08/12/24 13:50 Gustavo Test Pos 08/12/24 13:50 A-a O2 Gradient 6.6 mmHg (5-10) 08/12/24 13:50 Hematocrit 33.7 % (37-47) L 08/12/24 13:50 Hgb O2 Saturation 89.3 % (95-100) L 08/12/24 13:50 Carboxyhemoglobin 1.2 %THgb (0.4-20.1) 08/12/24 13:50 Methemoglobin 3.9 % (0.4-1.5) H 08/12/24 13:50 Total Hemoglobin 11.0 g/dL (12-16) L 08/12/24 13:50 Sodium 141.0 mmol/L (131-143) 08/12/24 13:50 Potassium 4.0 mmol/L (3.5-5.0) 08/12/24 13:50 Glucose 109.0 mg/dL (70-115) 08/12/24 13:50 Ionized Calcium 1.2 mmol/L (1.1-1.4) 08/12/24 13:50 O2 Delivery Device Nc 08/12/24 13:50 O2 Liters/Min 2.0 % 08/12/24 13:50 FiO2 28.0 % 08/12/24 13:50 Customer Expert ID Amh 08/12/24 13:50 Sodium 140 mmol/L (136-145) 08/15/24 05:22 Potassium 3.5 mmol/L (3.5-5.1) 08/15/24 05:22 Chloride 106 mmol/L (98-107) 08/15/24 05:22 Carbon Dioxide 27 mmol/L (22-29) 08/15/24 05:22 Anion Gap 10.5 (5-19) 08/15/24 05:22 BUN 5 mg/dL (8-23) L 08/15/24 05:22 Creatinine 0.6 mg/dL (0.5-0.9) 08/15/24 05:22 GFR Calculation 99.1 mL/min (90-130) 08/15/24 05:22 Glucose 90 mg/dL (65-115) 08/15/24 05:22 Estimat Average Glucose 62 08/12/24 11:56 Hemoglobin A1c 3.8 % (4.0-6.0) L 08/12/24 11:56 Calculated Osmolality 287 mOsm/kg (285-295) 08/15/24 05:22 Lactic Acid 1.2 mmol/L (0.5-2.2) 08/12/24 11:56 Calcium 8.1 mg/dL (8.5-10.5) L 08/15/24 05:22 Phosphorus 1.6 mg/dL (2.5-4.5) L 08/15/24 05:22 Magnesium 1.9 mg/dL (1.7-2.3) 08/15/24 05:22 Iron 88 ug/dL (37-145) 08/12/24 11:56 TIBC 216 mcg/dl 08/12/24 11:56 % Saturation 40.7 % (20-50) 08/12/24 11:56 Unsat Iron Binding 128 ug/dL (112-347) 08/12/24 11:56 Total Bilirubin 0.4 mg/dL (0.15-1.2) 08/15/24 05:22 AST 28 U/L (0-32) 08/15/24 05:22 ALT 16 U/L (0-33) 08/15/24 05:22 Alkaline Phosphatase 88 U/L (35-105) 08/15/24 05:22 Troponin T Baseline 18 ng/L (0-10) H 08/12/24 11:56 Troponin T 120 Minute 14.78 ng/L (0-10) H 08/12/24 14:22 Delta Troponin T -3.22 ABS# (0-10) L 08/12/24 14:22 Troponin T Hi Sens 6Hr 15.70 ng/L (0-10) H 08/12/24 19:14 Troponin T Hi Sens 6Hr Delta -2.30 ng/L (0-12) L 08/12/24 19:14 NT-Pro-B Natriuret Pep 188 pg/mL (0-125) H 08/12/24 11:56 Total Protein 5.8 g/dL (6.6-8.7) L 08/15/24 05:22 Albumin 3.0 g/dL (3.5-5.2) L 08/15/24 05:22 Globulin 2.8 g/dL (1.3-4.6) 08/15/24 05:22 Triglycerides 221 mg/dL (0-150) H 08/13/24 05:21 Cholesterol 148 mg/dL (0-200) 08/13/24 05:21 LDL Cholesterol, Calc 70 mg/dL (50-129) 08/13/24 05:21 HDL Cholesterol 34 mg/dL (60-100) L 08/13/24 05:21 LDL/HDL Ratio 2.06 RATIO (0.00-3.22) 08/13/24 05:21 Cholesterol/HDL Ratio 4.35 mg/dL (0.0-4.40) 08/13/24 05:21 Vitamin B12 1379 pg/mL (232-1245) H 08/12/24 11:56 Folate > 20.0 ng/mL (4.8-37.3) 08/13/24 05:21 Procalcitonin 0.09 ng/mL (0-0.5) 08/13/24 05:21 TSH 0.66 uIU/mL (0.27-4.20) 08/12/24 11:56 Prolactin 22.06 ng/mL (4.8-23.3) 08/12/24 11:56 HCG, Qual Negative (Negative) 08/12/24 12:00 Urine Color [place] (Yellow) A 08/12/24 18:00 Urine Appearance Clear (CLEAR) 08/12/24 18:00 Urine pH 5.5 (5-7) 08/12/24 18:00 Ur Specific [place] 1.030 (1.005-1.030) 08/12/24 18:00 Urine Protein 1+ (Negative) A 08/12/24 18:00 Urine Glucose (UA) Negative (Normal) 08/12/24 18:00 Urine Ketones Negative (Negative) 08/12/24 18:00 Urine Blood Negative (Negative) 08/12/24 18:00 Urine Nitrate Positive (Negative) A 08/12/24 18:00 Urine Bilirubin Negative (Negative) 08/12/24 18:00 Urine Urobilinogen 1.0 mg/dL (Negative) 08/12/24 18:00 Ur Leukocyte Esterase 1+ (Negative) A 08/12/24 18:00 Urine RBC 6-10 /hpf (0-2) 08/12/24 18:00 Urine WBC 21-50 /hpf (0-5) H 08/12/24 18:00 Ur Squamous Epith Cells 0-5 /hpf (0-5) 08/12/24 18:00 Calcium Oxalate Crystal 0-4 /hpf H 08/12/24 12:00 Amorphous Sediment Not Reportable 08/12/24 18:00 Urine Bacteria None seen /hpf (NONE) 08/12/24 18:00 Hyaline Casts 0-4 /lpf H 08/12/24 18:00 Urine Mucus Trace /hpf 08/12/24 12:00 Nasal MRSA (PCR) Not detected (Not Detecte) 08/13/24 16:35 Urine Opiates Screen Negative ng/mL (Negative) 08/12/24 12:00 Ur Barbiturates Screen Positive ng/mL (Negative) H 08/12/24 12:00 Phenytoin 17.0 ug/mL (10-20) 08/12/24 11:56 Levetiracetam 63.8 mcg/mL (6.0-46.0) H 08/13/24 05:21 Ur Phencyclidine Scrn Negative ng/mL (Negative) 08/12/24 12:00 Ur Amphetamines Screen Negative ng/mL (Negative) 08/12/24 12:00 U Benzodiazepines Scrn Positive ng/mL (Negative) H 08/12/24 12:00 Urine Cocaine Screen Negative ng/mL (Negative) 08/12/24 12:00 U Marijuana (THC) Screen Negative ng/mL (Negative) 08/12/24 12:00 Adenovirus (PCR) Not detected (NOT DETECT) 08/12/24 15:30 C. pneumoniae DNA (PCR) Not detected (NOT DETECT) 08/12/24 15:30 C. difficile (PCR) Positive (Negative) H 08/13/24 02:47 Coronavirus 229E (PCR) Not detected (NOT DETECT) 08/12/24 15:30 Human Metapneumovir PCR Not detected (NOT DETECT) 08/12/24 15:30 Influenza A (H1) PCR Not detected (NOT DETECT) 08/12/24 15:30 Influenza A (PCR) Negative (Negative) 08/12/24 11:56 Influ A (H1/09) PCR Not detected (NOT DETECT) 08/12/24 15:30 Influenza A (H3) PCR Not detected (NOT DETECT) 08/12/24 15:30 Influenza Type A (PCR) Not detected (NOT DETECT) 08/12/24 15:30 Influenza Type B (PCR) Not detected (NOT DETECT) 08/12/24 15:30 M. pneumoniae (PCR) Not detected (NOT DETECT) 08/12/24 15:30 Parainfluenza 1 (PCR) Not detected (NOT DETECT) 08/12/24 15:30 Parainfluenza 2 (PCR) Not detected (NOT DETECT) 08/12/24 15:30 Parainfluenza 3 (PCR) Not detected (NOT DETECT) 08/12/24 15:30 Parainfluenza 4 (PCR) Not detected (NOT DETECT) 08/12/24 15:30 RSV (PCR) Negative (Negative) 08/12/24 11:56 RSV Type A (PCR) Not detected (NOT DETECT) 08/12/24 15:30 RSV Type B (PCR) Not detected (NOT DETECT) 08/12/24 15:30 Entero/Rhino (PCR) Not detected (NOT DETECT) 08/12/24 15:30 SARS-CoV-2 (PCR) Not detected (NOT DETECT) 08/12/24 15:30 Vitals Last Vital Signs Temp 97.6 F 08/17/24 08:00 Pulse 69 08/17/24 08:47 Resp 16 08/17/24 08:47 BP 116/71 08/17/24 08:00 Pulse Ox 93 08/17/24 08:47 O2 Del Method Nasal Cannula 08/17/24 08:47 O2 Flow Rate 2 08/17/24 08:47 Discharge Plan Discharge Patient Disposition: Home Condition: Stable Prescriptions: New Dificid 200 mg Tablet 200 mg PO BID 7 Days Qty: 14 0RF Continued folic acid 1 mg tablet 1 mg PO DAILY@08 montelukast [Singulair] 10 mg tablet 10 mg PO DAILY@08 multivitamin Tablet 1 tab PO DAILY@08 pantoprazole [Protonix] 40 mg tablet,delayed release (DR/EC) 40 mg PO DAILY@08 zonisamide [Zonegran] 100 mg capsule 100 mg PO BID@08,20 phenazopyridine [Azo Urinary Pain Relief] 95 mg tablet 190 mg PO BID PRN (Reason: Bladder Spasms) simethicone [Gas-X Extra Strength] 125 mg capsule 125 mg PO Q8H PRN (Reason: Stomach Upset) tamsulosin [Flomax] 0.4 mg capsule 0.4 mg PO BID sucralfate 100 mg/mL suspension 10 ml PO BID prednisone 5 mg tablet 5 mg PO QAM loperamide [Anti-Diarrheal (loperamide)] 2 mg tablet 2 mg PO QID PRN (Reason: Diarrhea) buspirone 10 mg tablet 10 mg PO TID clonazepam 0.25 mg tablet,disintegrating 0.25 mg PO BID budesonide-formoterol 80-4.5 mcg/actuation HFA aerosol inhaler 2 puff INHALATION BID lacosamide [Vimpat] 150 mg tablet 150 mg PO BID albuterol sulfate 5 mg/mL solution for nebulization 5 mg inhalation TID PRN (Reason: shortness of breath or wheezing) Qty: 600 0RF acetaminophen 325 mg tablet 650 mg PO Q6H PRN (Reason: pain or elevated temp) promethazine-DM 6.25-15 mg/5 mL syrup 5 ml PO Q4H PRN (Reason: evening cough) triamcinolone acetonide 0.1 % cream 1 applic TOPICAL BID PRN (Reason: rash or itching) cyanocobalamin (vitamin B-12) 1,000 mcg/mL solution 1,000 mcg IM Q30D levetiracetam 500 mg tablet 2,000 mg PO BID vitamin B complex Tablet 1 tab PO .DAILY@12PM polyethylene glycol 3350 [Miralax] 17 gram Powder In Packet 17 g PO EVERY OTHER DAY fluoxetine 20 mg Tablet 20 mg PO DAILY@12 Rx Instructions: along with 10mg to=30 mg total Acidophilus Tablet,Chewable 1 tab PO DAILY@08 albuterol sulfate 90 mcg/actuation Hfa Aerosol Inhaler 2 puff INHALATION QID PRN (Reason: Shortness Of Breath) Nutritional Drink Liquid 1 ea PO TID@09,13,19 diclofenac sodium 1 % Gel 4 g TOPICAL QID PRN (Reason: Pain/arthritis) famotidine 20 mg tablet 20 mg PO BID Systane (propylene glycol) 0.4-0.3 % Drops 1 drp ophthalmic (eye) TID Rx Instructions: both eyes fluoxetine 10 mg capsule 10 mg PO DAILY@12 Rx Instructions: along with 20mg to=30 mg total phenytoin [Dilantin Infatabs] 50 mg tablet,chewable 50 mg PO TID@08,14,20 diazepam 5-7.5-10 mg kit 10 mg MN Q4H PRN (Reason: seizure activity) Qty: 1 0RF Discontinued nitrofurantoin macrocrystal 100 mg capsule 100 mg PO DAILY Discharge Orders: Discharge Order (Routine); Ordered 08/17/24 Ordered By: Frdeeric Joseph Referrals: Marilyn Trivedi APN [Primary Care Provider] - 08/20/24 11:40 am Discharge Diet: As Directed Discharge Activity: Resume usual activity Patient Instructions: Opioid Safety Activity Restrictions/Additional Instructions: - Please follow-up with neurology at [facility] Discharge Attestations Time Spent in Discharge Care*: greater than 30 min Quality Metrics Clinical Quality Measures [ No reported AMI, CVA or VTE this stay] Coding Level of Care Code 47777 Total time (in minutes) for Discharge: 45 Diagnoses Somnolence R40.0 Altered mental status R40.4 Altered mental status type: transient alteration of awareness Pseudomonas urinary tract infection N39.0; B96.5 Generalized epilepsy G40.309 Brain injury S06.9X9A Encephalomalacia without cerebral infarction G93.89 Chronic indwelling Vallecillo catheter Z97.8 Bacteremia R78.81
--- NOTE | 2024-08-17 11:26 | PC.SOCIAL ---
IMM Update pg 2 of IMM updated and reviewed w/ patients caregiver @ bedside. Copy provided and copy dated, initialed and placed in chart.
[2024-08-17 11:29] VITALS: BP 116/71; PULSE 74; RESP 19; TEMP 36.4; O2SAT 94
[2024-08-17 11:43] VITALS: BP 115/68; PULSE 76; RESP 18; TEMP 36.5; O2SAT 95
[2024-08-17] MEDS: fluoxetine 20 mg Capsule PO (12:43)
[2024-08-17] MEDS: fluoxetine 10 mg Capsule PO (12:43)
[2024-08-17 14:55] LABS: Lacosamide (Vimpat) 9.8 mcg/mL
[2024-08-20 10:06] LABS: Zonisamide (Zonegran) 15.3 mcg/mL (10.0-40.0)
== END 2024-08-17 13:05 | disposition home or self-care (01) | DRG 100 ==
LOC: ER 15:41 → MEDSURG 16:13
PROVIDERS: Emergency Medicine; Admitting Provider Student in an Organized Health Care Education/Training Program; Emergency Provider Family Medicine; PCP Nurse Practitioner Family; Visit Provider Family Medicine
DX: G40.409 Other generalized epilepsy and epileptic syndromes, not intractable, without status epilepticus (principal); G92.8 Other toxic encephalopathy; R78.81 Bacteremia; N30.90 Cystitis, unspecified without hematuria; G93.89 Other specified disorders of brain; Z96.0 Presence of urogenital implants; F79 Unspecified intellectual disabilities; M06.9 Rheumatoid arthritis, unspecified; R33.9 Retention of urine, unspecified; Z87.891 Personal history of nicotine dependence; J44.9 Chronic obstructive pulmonary disease, unspecified; Z87.01 Personal history of pneumonia (recurrent); Z87.820 Personal history of traumatic brain injury
CPT/HCPCS: 36415; 36600; 51702; 70450; 71045; 74176; 80051; 80053; 80061; 80177; 80185; 80203; 80299; 80306; 81001; 81003; 81025; 82330; 82607; 82746; 82805; 83036; 83540; 83550; 83605; 83735; 83880; 84100; 84145; 84146; 84443; 84484; 85025; 87040; 87077; 87086; 87150; 87186; 87205; 87486; 87493; 87581; 87633; 87637; 93005; 94640; 94664; 96365; 96372; 99285; C9254; G0378; J0696; J1165; J1644; J1953; J2185; J2405; J2470; J7030; J7613; J7626; J9999

== ENCOUNTER → 2024-08-31 10:03 | Outpatient (BNVA) | payer MEDICARE, MEDICAID, SELFPAY | PROVIDERS: PCP Nurse Practitioner Family; Visit Provider Internal Medicine Cardiovascular Disease | DX: J44.9 Chronic obstructive pulmonary disease, unspecified (principal); R09.02 Hypoxemia; I10 Essential (primary) hypertension; M06.9 Rheumatoid arthritis, unspecified; G40.409 Other generalized epilepsy and epileptic syndromes, not intractable, without status epilepticus; Z87.820 Personal history of traumatic brain injury | CPT/HCPCS: 99213 ==

== ENCOUNTER 2025-04-18 10:45 | Inpatient (IN) | payer MEDICARE, MEDICAID, SELFPAY ==
--- OUTSIDE RECORDS SUMMARY | 2025-04-15 01:40 | XMS_ITS ---
Author Organization [facility] Address [address] [place] [address] Care Team Providers Care Site Surveyor Name Role Phone Nuris Trivedi Primary Care Provider [phone] NURIS TRIVEDI Unavailable Unavailable REASON FOR VISIT Needs call back from MD Medications Medication SIG (Take, Route, Frequency, Duration) Notes Start Date End Date Status Benzonatate 100 MG Capsule 1 capsule as needed Orally Three times a day; Duration: 30 days 04/15/2025 05/15/2025 Active Encounters Encounter Location Date Provider Diagnosis [facility] [address] [place] [address] 04/15/2025 Nuris Trivedi Cough R05.9 Assessments Encounter Date Diagnosis (ICD Code) Assessment Notes Treatment Notes Treatment Clinical Notes Section Notes 04/15/2025 Cough (ICD-10 - R05.9) Plan Of Treatment Medication Medication Name Sig Start Date Stop Date Notes Benzonatate 100 MG Capsule 1 capsule as needed Orally Three times a day; Duration: 30 days 04/15/2025 05/15/2025 Next Appt Details Provider Name:Nuris Trivedi, 04/20/2025 11:20:00 AM, [address], [place], [address], Progress Notes * LESLEE MELENDEZDOB:1955 (69 yo F)Acc No.[id number]:04/15/2025 Patient: Stephen LESLEE CROCKETT :1955 A ge:69 Y S ex:Female [address] [facility] [place] [address] * Refills Start Benzonatate Capsule, 100 MG, Orally, 90 Capsule, 1 capsule as needed, Three times a day, 30 days, Refills=0 Subjective: * Chief Complaints: * N eeds call back from MD Assessment: * Assessment: 1. 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
[2025-04-18] VITALS (32 sets, daily range): BP systolic 91–141; BP diastolic 52–80; PULSE 70–123; RESP 10–28; TEMP 36.7–37.7; O2SAT 77–96; BMI 23.4
--- NOTE | 2025-04-18 10:51 | XRR_ITS ---
PROCEDURE INFORMATION: Exam: XR Chest Exam date and time: 04/18/2025 12:10 PM Age: 69 years old Clinical indication: Cough TECHNIQUE: Imaging protocol: Radiologic exam of the chest. Views: 1 view. COMPARISON: CR XR chest 1V portable [id number] 08/12/2024 1:21 PM FINDINGS: Tubes, catheters and devices: Neurostimulator is stable in position in the left neck/upper chest. Lungs: Interval development of patchy alveolar airspace disease in the left lingula and left lower lobe. Findings are suspicious for pneumonia. Pleural spaces: Interval development of a small left pleural effusion. No pneumothorax. Heart/Mediastinum: Stable moderate enlargement of the cardiac silhouette. Mediastinal contours are unremarkable. Bones/joints: Bones are diffusely osteopenic. Degenerative changes in the spine and shoulders. Patient has had a previous fracture repair of the distal right humerus and proximal right ulna. XR/XR chest 1V portable [id number] IMPRESSION: 1. Interval development of patchy alveolar airspace disease in the left lingula and left lower lobe. Findings are suspicious for pneumonia. Recommend followup chest imaging to insure resolution of these findings. 2. Interval development of a small left pleural effusion. 3. Incidental/nonacute findings are listed in the report.
--- OUTSIDE RECORDS SUMMARY | 2025-04-18 10:53 | XMS_ITS | Encounter Summary ---
Author Organization [facility] Address [address] Sweet: Epic Prelude ADT [place] [address] Care Team Providers Care Hair Cutter Name Role Phone Marilyn Trivedi APN Primary Care Provider [phone] Encounter Details Date Type Department Care Team (Late st Contact Info) Description 01/06/2004 Inpatient Historical Jorge Suero MD NO ADDRESS ON FILE EPILEPSY NOS INTRACTABLE (CMS/HCC) (Primary Dx) Social History Tobacco Use Types Packs/Day Years Used Date Smoking Tobacco: Never Assessed Comments Unknown Sex and Gender Information Value Date Recorded Sex Assigned at Not on file Legal Sex Female 6:26 AM SURFACE SUPERVISOR Gender Identity Not on file Sexual Orientation Not on file documented as of this encounter Plan of Treatment Not on file documented as of this encounter Visit Diagnoses Diagnosis 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
--- OUTSIDE RECORDS SUMMARY | 2025-04-18 10:53 | XMS_ITS | Encounter Summary ---
Author Organization [facility] Address [address] [place] [address] Care Team Providers Care Sheriff'S Sergeant Name Role Phone Marilyn Trivedi APN Primary Care Provider [phone] Encounter Details Date Type Department Care Team (Latest Contact Info) Description 01/18/2004 Outpatient Historical [facility] Neurology [address], [address] [place] [address] Jorge Suero MD NO ADDRESS ON FILE AFTERCARE RESIDENTIAL USE MEDICATN (Primary Dx) Social History Tobacco Use Types Packs/Day Years Used Date Smoking Tobacco: Never Assessed Comments Unknown Sex and Gender Information Value Date Recorded Sex Assigned at Not on file Legal Sex Female 6: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 [facility] [address] [place] [address] PCP - General 06/23/09 documented as of this encounter
--- OUTSIDE RECORDS SUMMARY | 2025-04-18 10:53 | XMS_ITS | Encounter Summary ---
Author Organization [facility] Address [address] [place] [address] Care Team Providers Care Microwave Engineer Name Role Phone Marilyn Trivedi APN Primary Care Provider Encounter Details Date Type Department Care Team (Latest Contact Info) Description 08/19/2003 Outpatient Historical [facility] Neurology [address], [address] [place] [address] [place] [address] [place] [address] PSYCHO EPI INTRACTABLE (CMS/HCC) (Primary Dx) Social History Tobacco Use Types Packs/Day Years Used Date Smoking Tobacco: Never Assessed Comments Unknown Sex and Gender Information Value Date Recorded Sex Assigned at Not on file Legal Sex Female 6:26 AM SPIRAL SPRING WINDER Gender Identity Not on file Sexual Orientation Not on file documented as of this encounter Plan of Treatment Not on file documented as of this encounter Visit Diagnoses Diagnosis Localization-related (focal) (partial) epilepsy and epileptic syndromes with complex partial seizures, with intractable epilepsy- Primary documented in this encounter Care Teams Microwave Engineer Relationship Specialty Start Date End Date Marilyn Trivedi APN [address] [facility] [address] [place] [address] PCP - General 06/23/09 documented as of this encounter
--- OUTSIDE RECORDS SUMMARY | 2025-04-18 10:53 | XMS_ITS | Encounter Summary ---
Author Organization [facility] Address [address] [place] [address] Care Team Providers Care Green Hide Inspector Name Role Phone Marilyn Trivedi APN Primary Care Provider [phone] Encounter Details Date Type Department Care Team (Latest Contact Info) Description 12/17/2003 Outpatient Historical [facility] [address], [address] [place] [address] Jorge Suero MD NO ADDRESS ON FILE GEN CONVUL EPI INTRACTABLE (CMS/HCC) (Primary Dx) Social History Tobacco Use Types Packs/Day Years Used Date Smoking Tobacco: Never Assessed Comments Unknown Sex and Gender Information Value Date Recorded Sex Assigned at Not on file Legal Sex Female 6:26 AM READING ASSISTANT Gender Identity Not on file Sexual Orientation Not on file documented as of this encounter Plan of Treatment Not on file documented as of this encounter Visit Diagnoses Diagnosis 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 [address] PCP - General 06/23/09 documented as of this encounter
--- OUTSIDE RECORDS SUMMARY | 2025-04-18 10:53 | XMS_ITS | Encounter Summary ---
Author Organization [facility] Address [address] [place] [address] Care Team Providers Care Can Line Operator Name Role Phone Marilyn Trivedi APN Primary Care Provider [phone] Encounter Details Date Type Department Care Team (Latest Contact Info) Description 01/18/2004 Outpatient Historical [facility] Neurology [address] [facility], [address] [place] [address] Jorge Suero MD NO ADDRESS ON FILE GEN CONVUL EPI W/O MENTN INTRACT (CMS/[facility]) (Primary Dx) Social History Tobacco Use Types Packs/Day Years Used Date Smoking Tobacco: Never Assessed Comments Unknown Sex and Gender Information Value Date Recorded Sex Assigned at Not on file Legal Sex Female 6:26 AM AUTOMATION LEAD Gender Identity Not on file Sexual Orientation Not on file documented as of this encounter Plan of Treatment Not on file documented as of this encounter Visit Diagnoses Diagnosis 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 documented in this encounter Care Teams Can Line Operator Relationship Specialty Start Date End Date Marilyn Trivedi APN [address] [facility] [address] [place] [address] PCP - General 06/23/09 documented as of this encounter
--- OUTSIDE RECORDS SUMMARY | 2025-04-18 10:53 | XMS_ITS | Encounter Summary ---
Author Organization [facility] Address [address] [place] [address] Care Team Providers Care Lot Technician Name Role Phone Marilyn Trivedi APN Primary Care Provider [phone] Encounter Details Date Type Department Care Team (Latest Contact Info) Description 06/21/2004 Outpatient Historical [facility] Neurology [address], [address] [place] [address] Jorge Suero MD NO ADDRESS ON FILE GEN CONVUL EPI INTRACTABLE (CMS/HCC) (Primary Dx) Social History Tobacco Use Types Packs/Day Years Used Date Smoking Tobacco: Never Assessed Comments Unknown Sex and Gender Information Value Date Recorded Sex Assigned at Not on file Legal Sex Female 6:26 AM ANIMAL CARE TAKER Gender Identity Not on file Sexual Orientation Not on file documented as of this encounter Plan of Treatment Not on file documented as of this encounter Visit Diagnoses Diagnosis 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 [address] PCP - General 06/23/09 documented as of this encounter
--- OUTSIDE RECORDS SUMMARY | 2025-04-18 10:53 | XMS_ITS | Encounter Summary ---
Author Organization [facility] Address [address] [place] [address] Care Team Providers Care Stone Setter Name Role Phone Marilyn Trivedi APN Primary Care Provider [phone] Encounter Details Date Type Department Care Team (Latest Contact Info) Description 10/01/2003 Outpatient Historical [facility] Neurology [address], [address] [place] [address] [place] [address] [place] [address] PSYCHO EPI W/O MENTN INTRACTABLE (CMS/HCC) (Primary Dx) Social History Tobacco Use Types Packs/Day Years Used Date Smoking Tobacco: Never Assessed Comments Unknown Sex and Gender Information Value Date Recorded Sex Assigned at Not on file Legal Sex Female 6:26 AM WRAPPING MACHINE HELPER Gender Identity Not on file Sexual Orientation Not on file documented as of this encounter Plan of Treatment Not on file documented as of this encounter Visit Diagnoses Diagnosis Localization-related (focal) (partial) epilepsy and epileptic syndromes with complex partial seizures, without mention of intractable epilepsy- Primary documented in this encounter Care Teams Stone Setter Relationship Specialty Start Date End Date Marilyn Trivedi APN [address] [address] PCP - General 06/23/09 documented as of this encounter
--- OUTSIDE RECORDS SUMMARY | 2025-04-18 10:53 | XMS_ITS | Encounter Summary ---
Author Organization [facility] Address [address] [place] [address] Care Team Providers Care Estate Planning Paralegal Name Role Phone Marilyn Trivedi APN Primary Care Provider [phone] Encounter Details Date Type Department Care Team (Latest Contact Info) Description 10/29/2003 Outpatient Historical [facility] Neurology [address], [address] [place] [address] [place] [address] [place] [address] PSYCHO EPI INTRACTABLE (CMS/HCC) (Primary Dx) Social History Tobacco Use Types Packs/Day Years Used Date Smoking Tobacco: Never Assessed Comments Unknown Sex and Gender Information Value Date Recorded Sex Assigned at Not on file Legal Sex Female 6:26 AM PLANT INSPECTOR Gender Identity Not on file Sexual Orientation Not on file documented as of this encounter Plan of Treatment Not on file documented as of this encounter Visit Diagnoses Diagnosis Localization-related (focal) (partial) epilepsy and epileptic syndromes with complex partial seizures, with intractable epilepsy- Primary documented in this encounter Care Teams Estate Planning Paralegal Relationship Specialty Start Date End Date Marilyn Trivedi APN [address] [facility] [address] [place] [address] PCP - General 06/23/09 documented as of this encounter
--- OUTSIDE RECORDS SUMMARY | 2025-04-18 10:53 | XMS_ITS | Encounter Summary ---
Author Organization [facility] Address [address] [place] [address] Care Team Providers Care Silk Screen Layout Drafter Name Role Phone Marilyn Trivedi APN Primary Care Provider Encounter Details Date Type Department Care Team (Latest Contact Info) Description 08/19/2003 Outpatient [facility] [address] [place] [address] [place] [address] [place] [address] PSYCHO EPI W/O MENTN INTRACTABLE (CMS/HCC) (Primary Dx) Social History Tobacco Use Types Packs/Day Years Used Date Smoking Tobacco: Never Assessed Comments Unknown Sex and Gender Information Value Date Recorded Sex Assigned at Not on file Legal Sex Female 6:26 AM HONING MACHINE OPERATOR SEMIAUTOMATIC Gender Identity Not on file Sexual Orientation Not on file documented as of this encounter Plan of Treatment Not on file documented as of this encounter Visit Diagnoses Diagnosis Localization-related (focal) (partial) epilepsy and epileptic syndromes with complex partial seizures, without mention of intractable epilepsy- Primary documented in this encounter Care Teams Silk Screen Layout Drafter Relationship Specialty Start Date End Date Marilyn Trivedi APN [address] [facility] [address] [place] [address] PCP - General 06/23/09 documented as of this encounter
--- OUTSIDE RECORDS SUMMARY | 2025-04-18 10:53 | XMS_ITS | Encounter Summary ---
Author Organization [facility] Address [address] [place] [address] Care Team Providers Care Poultice Machine Operator Name Role Phone Marilyn Trivedi APN Primary Care Provider [phone] Encounter Details Date Type Department Care Team (Latest Contact Info) Description 07/26/2006 Outpatient Historical [facility] Neurology [address], [address] [place] [address] Jorge Suero MD NO ADDRESS ON FILE Grand Mal, not Intractabl (CMS/HCC) (Primary Dx) Social History Tobacco Use Types Packs/Day Years Used Date Smoking Tobacco: Never Assessed Comments Unknown Sex and Gender Information Value Date Recorded Sex Assigned at Not on file Legal Sex Female 6:26 AM CORPORATE DIRECTOR TALENT ASSESSMENT Gender Identity Not on file Sexual Orientation Not on file documented as of this encounter Plan of Treatment Not on file documented as of this encounter Visit Diagnoses Diagnosis 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 documented in this encounter Care Teams Poultice Machine Operator Relationship Specialty Start Date End Date Marilyn Trivedi APN [address] [address] PCP - General 06/23/09 documented as of this encounter
--- OUTSIDE RECORDS SUMMARY | 2025-04-18 10:53 | XMS_ITS | Encounter Summary ---
Author Organization [facility] Address [address] [place] [address] Care Team Providers Care Patient Financial Services Manager Name Role Phone Marilyn Trivedi APN Primary Care Provider Encounter Details Date Type Department Care Team (Latest Contact Info) Description 03/09/2004 Outpatient [place] [facility] [address] [place] [address], [address] [place] [address] Jorge Suero MD NO ADDRESS ON FILE PSYCHO EPI INTRACTABLE (CMS/HCC) (Primary Dx) Social History Tobacco Use Types Packs/Day Years Used Date Smoking Tobacco: Never Assessed Comments Unknown Sex and Gender Information Value Date Recorded Sex Assigned at Not on file Legal Sex Female 6: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 [address] PCP - General 06/23/09 documented as of this encounter
--- OUTSIDE RECORDS SUMMARY | 2025-04-18 10:54 | XMS_ITS | Encounter Summary ---
Author Organization [facility] Address [address] [place] [address] Care Team Providers Care Health And Safety Advisor Name Role Phone Marilyn Trivedi APN Primary Care Provider [phone] Encounter Details Date Type Department Care Team (Latest Contact Info) Description 03/19/2005 Outpatient Historical [facility] Neurology [address] [facility], [address] [place] [address] Jorge Suero MD NO ADDRESS ON FILE PSYCHO EPI INTRACTABLE (CMS/HCC) (Primary Dx); CVA; MENTAL RETARDATION NOS Social History Tobacco Use Types Packs/Day Years Used Date Smoking Tobacco: Never Assessed Comments Unknown Sex and Gender Information Value Date Recorded Sex Assigned at Not on file Legal Sex Female 6:26 AM DATA ENTRY SPECIALIST Gender Identity Not on file Sexual Orientation Not on file documented as of this encounter Plan of Treatment Not on file documented as of this encounter Visit Diagnoses Diagnosis Localization-related (focal) (partial) epilepsy and epileptic syndromes with complex partial seizures, with intractable epilepsy- Primary CVA Unspecified cerebral artery occlusion with cerebral infarction Unspecified intellectual disabilities documented in this encounter Care Teams Health And Safety Advisor Relationship Specialty Start Date End Date Marilyn Trivedi APN [address] [address] PCP - General 06/23/09 documented as of this encounter
--- OUTSIDE RECORDS SUMMARY | 2025-04-18 10:54 | XMS_ITS | Encounter Summary ---
Author Organization [facility] Address [address] [place] [address] Care Team Providers Care Catalogue Illustrator Name Role Phone Marilyn Trivedi APN Primary Care Provider [phone] Encounter Details Date Type Department Care Team (Latest Contact Info) Description 09/27/[address] [facility] Neurology [address] [place] [address], [address] [place] [address] Jorge Suero MD NO ADDRESS ON FILE GEN CONVUL EPI INTRACTABLE (CMS/HCC) (Primary Dx) Social History Tobacco Use Types Packs/Day Years Used Date Smoking Tobacco: Never Assessed Comments Unknown Sex and Gender Information Value Date Recorded Sex Assigned at Not on file Legal Sex Female 6:26 AM CATERING TRUCK OPERATOR Gender Identity Not on file Sexual Orientation Not on file documented as of this encounter Plan of Treatment Not on file documented as of this encounter Visit Diagnoses Diagnosis 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 [address] PCP - General 06/23/09 documented as of this encounter
--- OUTSIDE RECORDS SUMMARY | 2025-04-18 10:54 | XMS_ITS | Clinical Summary ---
Author Organization [facility] Address [address] [facility] [facility] Attn: Epic Prelude ADT SEBASTIAN ROBLERO [address] Care Team Providers Care Chopper Gun Operator Name Role Phone Marilyn Trivedi APN Primary Care Provider Allergies Active Allergy Reactions Criticality Noted Date Comments Aspirin Rash Low 06/16/2009 Caffeine Seizure High 06/23/2009 Homeopathic Products Other (See Comments) 06/23 Dairy products cause increased problems with sinus drainage per family Levofloxacin Rash Low 10/22/2024 Vancomycin Hcl Rash Low 10/22/2024 Medications fluticasone propionate (FLONASE) 50 mcg/spray Penuel[place], Suspension nasal inhaler Administer 1 Penuelas in each nostril daily. Active folic acid (FOLVITE) 1 mg tablet Take 1 mg by mouth daily. Active predniSONE (DELTASONE) 5 mg tablet Take 5 mg by mouth daily with breakfast. Active montelukast (SINGULAIR) 10 mg tablet Take 10 mg by mouth daily. Active methylPREDNISolo ne (MEDROL DOSPACK) 4 mg Tablets, Dose Pack Take 4 mg by mouth see administration instructions. 08/25/19 25 Active mupirocin (BACTROBAN) 2 % Ointment Apply to affected area see administration instructions. Active FLUoxetine (PROzac) 10 mg capsule Take 10 mg by mouth daily. Active FLUoxetine (PROzac) 20 mg capsule Take 20 mg by mouth daily. Active Ventolin HFA 90 mcg/actuation inhaler Take 2 Puffs by inhalation every 6 hours as needed. Active albuterol (PROVENTIL,SAMSON CINDY) 2.5 mg /3 mL (0.083 %) Solution for Nebulization Take 2.5 mg by inhalation see administration instructions. 10/16/19 25 Active acidophillus citrus pectin 25 million cell/100 mg (LACTINEX) 25 million cell -100 mg Tablet Take 2 Tablets by mouth 3 times daily with meals. Active polyethylene glycol (MIRALAX) 17 gram Powder in Packet Take 17 Grams by mouth daily. Every other day for constipation Active pantoprazole (PROTONIX) 40 mg Tablet, Delayed Release (E.C.) Take 40 mg by mouth daily. Active B-COMPLEX WITH VITAMIN C ORAL Take by mouth. Active nitrofurantoin macrocrystaL (MACRODANTIN) 100 mg Capsule Take 100 mg by mouth 4 times daily with meals and at bedtime. Active oxygen home delivery Administer in each nostril. Home Oxygen Concentrator yes at 2 L/M Rest, 2 L/M Activity, 2 L/M Sleep, Delivery Device: Nasal Cannula Portability: yes, 2 L/M Rest, 2 L/M Activity, May provide device best for patient needs(E system,home fill, conserving device) Length of Need: 99 months Active budesonide-formo teroL (SYMBICORT) 80-4.5 mcg/actuation HFA Aerosol Inhaler Take 2 Puffs by inhalation 2 times daily. Active levETIRAcetam (KEPPRA) 100 mg/mL Solution Take by mouth 2 times daily. Active clonazePAM (KlonoPIN RAPID DISSOLVE) 0.25 mg Tablet, Rapid Dissolve Take 0.25 mg by mouth 3 times daily. Active famotidine (PEPCID) 20 mg tablet Take 20 mg by mouth 2 times daily. Active phenazopyridine 100 mg tablet Take 100 mg by mouth 3 times daily. Active lacosamide (VIMPAT) 150 mg tablet Take by mouth. Activ e busPIRone (BUSPAR) 10 mg tablet Take 10 mg by mouth 3 times daily. Active phenytoin (DILANTIN) 100 mg/4 mL Suspension Take by mouth. Acti ve artificial tears,hypromello se, 0.3 % gel 2 times daily as needed for Discomfort. Active guaiFENesin (MUCINEX) 600 mg Extended Release Biphasic tablet Take 1 Tablet (600 mg) by mouth 2 times daily. 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 Gender Identity Not on file Sexual Orientation Not on file Last Filed Vital Signs Vital Sign Reading Time Taken Comments Blood Pressure 110/70 10/22/2024 1:18 PM CDT Pulse 92 10/22/2024 1:18 PM CDT Temperature - - Respiratory Rate - - Oxygen Saturation 88% 10/22/2024 1:18 PM CDT Inhaled Oxygen Concentration - - Weight 55.8 kg (123 lb) 10/22/2024 1:18 PM CDT Height 144.8 cm (4' 9 ) 10/22/2024 1:18 PM CDT Body Mass Index 26.62 10/22/2024 1:18 PM CDT Plan of Treatment Health Maintenance Due Date Last Done Comments Pre-Diabetes and Diabetes Screening 1955 PNEUMOCOCCAL VACCINE 50+ YEARS (1 of 2 - PCV) 12/11/18 74 BREAST CANCER SCREENING 1994 DTAP/TDAP/TD VACCINES (1 - Tdap) 07/25/1998 07/24/18 99 COLORECTAL SCREENING 12/12/1999 Colorectal Cancer Screening 12/12/1999 FIT-DNA Q 3 years 12/12/1999 FIT/FOBT Q 1 year 12/12/1999 Flex Sig/CT Colonography Q 5 years 12/12/1999 RSV VACCINE (60+ or ) (1 - Risk 50-74 years 1-dose series) 2004 ZOSTER VACCINE (1 of 2) 2004 OSTEOPOROSIS SCREENING 12/12/2019 INFLUENZA VACCINE (#1) 2024 Medical Devices Implanted Type Area Receiving Checker Device Identifier Shelf Expiration Date Model / Serial / Lot Log [id number] - Acumed Locking Elbow / Clavicle Set - 1 - Plate Hook Lcp 3.5mm 3hl 02.113.103s Implanted:Qty: 1 on 06/24/2009 Plate Right: Elbow SYNTHES STRATEC 02.113.103S / / LOAD # [id number] Log 65516 - Synthes 3.5 Lcp Distal Humerus & Elbow Plate Sys - 1 - Plate Dis Humer 7h Rt 241.286 Implanted:Qty: 1 on 06/24/2009 Plate Right: Elbow SYNTHES STRATEC 241.286 / / LOAD# [id number] Log 69574 - Synthes 3.5 Lcp Distal Humerus & Elbow Plate Sys - 1 - Plate Lcp Hum Post/Lat/Dis 3.5mm 241.264 Implanted:Qty: 1 on 06/24/2009 Plate Right: Elbow SYNTHES STRATEC 241.264 / / LOAD# [id number] Log 91423 - Synthes Small Frag Lcp Locking - 1 - Screw Sami Self Tap 3.5x20mm 204.820 Implanted:Qty: 4 on 06/24/2009 Screw Right: Elbow SYNTHES STRATEC 204.820 / / Log 93481 - Synthes Small Frag Lcp Locking - 1 - Screw Sami Self Tap 3.5x22mm 204.822 Implanted:Qty: 1 on 06/24/2009 Screw Right: Elbow SYNTHES STRATEC 204.822 / / Log 85092 - Synthes Small Frag Lcp Locking - 1 - Screw Sami Self Tap 3.5x26mm 204.826 Implanted:Qty: 1 on 06/24/2009 Screw Right: Elbow SYNTHES STRATEC 204.826 / / Log 87738 - Synthes Small Frag Lcp Locking - 1 - Screw Sami Self Tap 3.5x38mm 204.838 Implanted:Qty: 1 on 06/24/2009 Screw Right: Elbow SYNTHES STRATEC 204.838 / / Log 80185 - Synthes Small Frag Lcp Locking - 1 - Screw Lock Self Tap 3.5x20mm 212.106 Implanted:Qty: 3 on 06/24/2009 Screw Right: Elbow SYNTHES STRATEC 212.106 / / Log 30191 - Synthes Small Frag Lcp Locking - 1 - Screw Lock Self Tap 3.5x24mm 212.108 Implanted:Qty: 1 on 06/24/2009 Screw Right: Elbow SYNTHES STRATEC 212.108 / / Log 18639 - Synthes Small Frag Lcp Locking - 1 - Screw Lock Self Tap 3.5x28mm 212.110 Implanted:Qty: 2 on 06/24/2009 Screw Right: Elbow SYNTHES STRATEC 212.110 / / Log 08066 - Synthes 3.5 Lcp Distal Humerus & Elbow Plate Sys - 1 - Screw Lock 2.7x20mm 202.220 Implanted:Qty: 2 on 06/24/2009 Screw Right: Elbow SYNTHES STRATEC 202.220 / / LOAD# [id number] Log 55845 - Synthes 3.5 Lcp Distal Humerus & Elbow Plate Sys - 1 - Screw Lock 2.7x22mm 202.222 Implanted:Qty: 1 on 06/24/2009 Screw Right: Elbow SYNTHES STRATEC 202.222 / / LOAD# [id number] Log 95720 - Synthes 3.5 Lcp Distal Humerus & Elbow Plate Sys - 1 - Screw Lock 2.7x24mm 202.224 Implanted:Qty: 1 on 06/24/2009 Screw Right: Elbow SYNTHES STRATEC 202.224 / / LOAD# [id number] Log 69600 - Synthes 3.5 Lcp Distal Humerus & Elbow Plate Sys - 1 - Screw Lock 2.7x26mm 202.226 Implanted:Qty: 1 on 06/24/2009 Screw Right: Elbow SYNTHES STRATEC 202.226 / / LOAD# [id number] Log 12586 - Synthes 3.5 Lcp Distal Humerus & Elbow Plate Sys - 1 - Screw Lock 2.7x30mm 202.230 Implanted:Qty: 1 on 06/24/2009 Screw Right: Elbow SYNTHES STRATEC 202.230 / / LOAD# [id number] Log 30141 - Synthes Small Frag Lcp Locking - 1 - Screw Sami Self Tap 3.5x18mm 204.818 Implanted:Qty: 1 on 06/24/2009 Screw Right: Elbow SYNTHES STRATEC 204.818 / / Insurance MEDICAID [place] MEDICARE PART A AND B Care Teams Chopper Gun Operator Relationship Specialty Start Date End Date Marilyn Trivedi APN [facility] [address] [address] PCP - General 06/23/09
--- OUTSIDE RECORDS SUMMARY | 2025-04-18 10:54 | XMS_ITS | Encounter Summary ---
Author Organization [facility] Address [address] [place] [address] Care Team Providers Care Electrotherapist Name Role Phone Marilyn Trivedi APN Primary Care Provider [phone] Encounter Details Date Type Department Care Team (Latest Contact Info) Description 11/10/2004 Outpatient Historical [facility] [place] [facility] [address], [address] [place] [address] Jorge Suero MD NO ADDRESS ON FILE GEN CONVUL EPI INTRACTABLE (CMS/HCC) (Primary Dx) Social History Tobacco Use Types Packs/Day Years Used Date Smoking Tobacco: Never Assessed Comments Unknown Sex and Gender Information Value Date Recorded Sex Assigned at Not on file 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 [address] PCP - General 06/23/09 documented as of this encounter
--- OUTSIDE RECORDS SUMMARY | 2025-04-18 10:54 | XMS_ITS | Encounter Summary ---
Author Organization [facility] Address [address] [place] [address] Care Team Providers Care Manager Process Excellence Name Role Phone Marilyn Trivedi APN Primary Care Provider [phone] Encounter Details Date Type Department Care Team (Latest Contact Info) Description 09/06/2004 Outpatient Historical [facility] [place] [facility] [address], [address] [place] [address] Jorge Suero MD NO ADDRESS ON FILE GEN CONVUL EPI W/O MENTN INTRACT (CMS/[facility]) (Primary Dx) Social History Tobacco Use Types Packs/Day Years Used Date Smoking Tobacco: Never Assessed Comments Unknown Sex and Gender Information Value Date Recorded Sex Assigned at Not on file 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 [facility] [address] [place] [address] PCP - General 06/23/09 documented as of this encounter
--- OUTSIDE RECORDS SUMMARY | 2025-04-18 10:54 | XMS_ITS | Encounter Summary ---
Author Organization [facility] Address [address] [place] [address] Care Team Providers Care Sodium Methylate Operator Name Role Phone Marilyn Trivedi APN Primary Care Provider Encounter Details Date Type Department Care Team (Latest Contact Info) Description 06/10/2003 Outpatient Historical [facility] [place] [facility] [address], [address] [place] [address] [place] [address] [place] [address] PSYCHO EPI INTRACTABLE (CMS/HCC) (Primary Dx) Social History Tobacco Use Types Packs/Day Years Used Date Smoking Tobacco: Never Assessed Comments Unknown Sex and Gender Information Value Date Recorded Sex Assigned at Not on file 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 [facility] [address] [place] [address] PCP - General 06/23/09 documented as of this encounter
--- OUTSIDE RECORDS SUMMARY | 2025-04-18 10:54 | XMS_ITS | Encounter Summary ---
Author Organization [facility] Address [address] [place] [address] Care Team Providers Care Director Skills Name Role Phone Marilyn Trivedi APN Primary Care Provider Encounter Details Date Type Department Care Team (Latest Contact Info) Description 06/18/2003 Outpatient Historical [facility] [address], [address] [place] [address] [place] [address] [place] [address] PSYCHO EPI INTRACTABLE (CMS/HCC) (Primary Dx) Social History Tobacco Use Types Packs/Day Years Used Date Smoking Tobacco: Never Assessed Comments Unknown Sex and Gender Information Value Date Recorded Sex Assigned at Not on file 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 [facility] [address] [place] [address] PCP - General 06/23/09 documented as of this encounter
--- OUTSIDE RECORDS SUMMARY | 2025-04-18 10:54 | XMS_ITS | Encounter Summary ---
Author Organization [facility] Address [address] [place] [facility] [place] [address] Care Team Providers Care Fire Prevention Captain Name Role Phone Marilyn Trivedi APN Primary Care Provider [phone] Encounter Details Date Type Department Care Team (Latest Contact Info) Description 02/19/2003 Outpatient Historical [facility] Gordo Glaser MD NO ADDRESS ON FILE PSYCHO EPI INTRACTABLE (CMS/HCC) (Primary Dx) Social History Tobacco Use Types Packs/Day Years Used Date Smoking Tobacco: Never Assessed Comments Unknown Sex and Gender Information Value Date Recorded Sex Assigned at Not on file 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
--- OUTSIDE RECORDS SUMMARY | 2025-04-18 10:54 | XMS_ITS | Encounter Summary ---
Author Organization [facility] Address [address] [facility] [place] [address] Care Team Providers Care Career Law Clerk Name Role Phone Marilyn Trivedi APN Primary Care Provider [phone] Encounter Details Date Type Department Care Team (Latest Contact Info) Description 05/17/2003 Outpatient Historical [facility] [place] [facility] Gordo Glaser MD NO ADDRESS ON FILE PSYCHO EPI INTRACTABLE (CMS/HCC) (Primary Dx) Social History Tobacco Use Types Packs/Day Years Used Date Smoking Tobacco: Never Assessed Comments Unknown Sex and Gender Information Value Date Recorded Sex Assigned at Not on file 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
--- OUTSIDE RECORDS SUMMARY | 2025-04-18 10:54 | XMS_ITS | Clinical Summary ---
Author Organization [facility] Address [address] 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 Gender Identity Not on file Sexual Orientation Not on file Last Filed Vital Signs Vital Sign Reading Time Taken Comments Blood Pressure 98/57 09/22/2010 10:15 AM CDT Pulse 78 09/22/2010 10:15 AM CDT Temperature 36.6 C (97.9 F) 09/22/2010 10:15 AM CDT Respiratory Rate 16 09/22/2010 10:15 AM CDT [...] OSTEOPOROSIS SCREENING 12/12/2019 INFLUENZA VACCINE (#1) 2024 RSV VACCINE (60+ or ) (1 - 1-dose 75+ series) 2029 Medical Devices Implanted Type Area Licensed Insurance Sales Agent Device Identifier Shelf Expiration Date Model / Serial / Lot Log [id number] - Acumed Locking Elbow / Clavicle Set - 1 - Plate Hook Lcp 3.5mm 3hl 02.113.103s Implanted:Qty: 1 on 06/24/2009 at [facility] Plate Right: Elbow SYNTHES STRATEC 02.113.103S / / LOAD # [id number] Log 21224 - Synthes 3.5 Lcp Distal Humerus & Elbow Plate Sys - 1 - Plate Lcp Hum Post/Lat/Dis 3.5mm 241.264 Implanted:Qty: 1 on 06/24/2009 at [facility] Plate Right: Elbow SYNTHES STRATEC 241.264 / / LOAD# [id number] Log 61797 - Synthes 3.5 Lcp Distal Humerus & Elbow Plate Sys - 1 - Plate Dis Humer 7h Rt 241.286 Implanted:Qty: 1 on 06/24/2009 at [facility] Plate Right: Elbow SYNTHES STRATEC 241.286 / / LOAD# [id number] Log 20027 - Synthes Small Frag Lcp Locking - 1 - Screw Lock Self Tap 3.5x24mm 212.108 Implanted:Qty: 1 on 06/24/2009 at [facility] Screw Right: Elbow SYNTHES STRATEC 212.108 / / Log 25315 - Synthes Small Frag Lcp Locking - 1 - Screw Lock Self Tap 3.5x28mm 212.110 Implanted:Qty: 2 on 06/24/2009 at [facility] Screw Right: Elbow SYNTHES STRATEC 212.110 / / Log 74506 - Synthes 3.5 Lcp Distal Humerus & Elbow Plate Sys - 1 - Screw Lock 2.7x20mm 202.220 Implanted:Qty: 2 on 06/24/2009 at [facility] Screw Right: Elbow SYNTHES STRATEC 202.220 / / LOAD# [id number] Log 78405 - Synthes 3.5 Lcp Distal Humerus & Elbow Plate Sys - 1 - Screw Lock 2.7x22mm 202.222 Implanted:Qty: 1 on 06/24/2009 at [facility] Screw Right: Elbow SYNTHES STRATEC 202.222 / / LOAD# [id number] Log 65187 - Synthes 3.5 Lcp Distal Humerus & Elbow Plate Sys - 1 - Screw Lock 2.7x24mm 202.224 Implanted:Qty: 1 on 06/24/2009 at [facility] Screw Right: Elbow SYNTHES STRATEC 202.224 / / LOAD# [id number] Log 51714 - Synthes 3.5 Lcp Distal Humerus & Elbow Plate Sys - 1 - Screw Lock 2.7x26mm 202.226 Implanted:Qty: 1 on 06/24/2009 at [facility] Screw Right: Elbow SYNTHES STRATEC 202.226 / / LOAD# [id number] Log 13380 - Synthes 3.5 Lcp Distal Humerus & Elbow Plate Sys - 1 - Screw Lock 2.7x30mm 202.230 Implanted:Qty: 1 on 06/24/2009 at [facility] Screw Right: Elbow SYNTHES STRATEC 202.230 / / LOAD# [id number] Log 55640 - Synthes Small Frag Lcp Locking - 1 - Screw Sami Self Tap 3.5x18mm 204.818 Implanted:Qty: 1 on 06/24/2009 at [facility] Screw Right: Elbow SYNTHES STRATEC 204.818 / / Log 76193 - Synthes Small Frag Lcp Locking - 1 - Screw Sami Self Tap 3.5x20mm 204.820 Implanted:Qty: 4 on 06/24/2009 at [facility] Screw Right: Elbow SYNTHES STRATEC 204.820 / / Log 30296 - Synthes Small Frag Lcp Locking - 1 - Screw Sami Self Tap 3.5x22mm 204.822 Implanted:Qty: 1 on 06/24/2009 at [facility] Screw Right: Elbow SYNTHES STRATEC 204.822 / / Log 71570 - Synthes Small Frag Lcp Locking - 1 - Screw Sami Self Tap 3.5x26mm 204.826 Implanted:Qty: 1 on 06/24/2009 at [facility] Screw Right: Elbow SYNTHES STRATEC 204.826 / / Log 01601 - Synthes Small Frag Lcp Locking - 1 - Screw Sami Self Tap 3.5x38mm 204.838 Implanted:Qty: 1 on 06/24/2009 at [facility] Screw Right: Elbow SYNTHES STRATEC 204.838 / / Log 50648 - Synthes Small Frag Lcp Locking - 1 - Screw Lock Self Tap 3.5x20mm 212.106 Implanted:Qty: 3 on 06/24/2009 at [facility] Screw Right: Elbow SYNTHES STRATEC 212.106 / / Insurance MEDICARE PART A AND B MEDICAID [place] Advance Directives For more information, please contact: [phone] * Full Code (Latest Code Status on File) Date Activated Date Inactivated Comments 06/24/2009 6:43 PM 06/27/2009 2:27 PM * Full Code Date Activated Date Inactivated Comments 06/24/2009 2:31 PM 06/24/2009 6:43 PM * Full Code Date Activated Date Inactivated Comments 06/24/2009 1:39 PM 06/24/2009 2:31 PM * Full Code Date Activated Date Inactivated Comments 06/23/2009 4:13 PM 06/24/2009 1:39 PM Care Teams Fashion Consultant Selling Relationship Specialty Start Date End Date Marilyn Trivedi APN [facility] [address] [address] PCP - General 06/23/09
--- OUTSIDE RECORDS SUMMARY | 2025-04-18 10:54 | XMS_ITS | Encounter Summary ---
Author Organization [facility] Address [address] [place] [address] Care Team Providers Care Loop Tender Name Role Phone Marilyn Trivedi APN Primary Care Provider [phone] Encounter Details Date Type Department Care Team (Latest Contact Info) Description 05/25/2005 Outpatient Historical [facility] Neurology [address], [address] [place] [address] Jorge Suero MD NO ADDRESS ON FILE GEN CONVUL EPI INTRACTABLE (CMS/HCC) (Primary Dx) Social History Tobacco Use Types Packs/Day Years Used Date Smoking Tobacco: Never Assessed Comments Unknown Sex and Gender Information Value Date Recorded Sex Assigned at Not on file 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 [address] PCP - General 06/23/09 documented as of this encounter
--- OUTSIDE RECORDS SUMMARY | 2025-04-18 10:54 | XMS_ITS | Patient Health Record ---
Author Organization [facility] Address [address] [place] [address] Care Team Providers Care Joiner Apprentice Name Role Phone Trivedi, Marilyn Primary Care Provider TRIVEDIMARILYN Unavailable Unavailable January Disla Unavailable [phone] Allergies Allergen (clinical drug ingredient) Drug/Non Drug Allergy documented on EMR Reaction Allergy Type Onset Date Status levofloxacin levoFLOXacin rash Drug Allergy A ctive vancomycin Vancomycin HCl rash Drug Allergy A ctive Influenza A (H1N1) Monoval Vac Unknown Drug Allergy Active aspirin Aspirin Unknown Drug Allergy Active Results Component Value Reference Range Flag Notes Rapid Strep (Strep A) -86553 Reviewed date:03/18/2025 11:33:50 AM Interpretation: Performing Lab: Notes/Report: Strep positive C Diff Toxin EIA--65532 Reviewed date:08/13/2024 05:38:24 PM Interpretation: Performing Lab: Notes/Report: CDiff Toxin EIA LESLEE Sarmiento CDiff Toxin EIA t: CDiff Toxin EIA CD[facility] EIA [id number] CDiff Toxin EIA n: CDiff Toxin EIA Microbiology CDiff Toxin EIA PROCEDURE: CDiff Toxin EIA [O1 i1] CDiff Toxin EIA SOURCE: Stool BODY SITE: CDiff Toxin EIA COLLECTED DATE/TIME: 08/11/2024 13:39 CDT RECEIVED DATE/TIME: 08/12/2024 10:33 CDT CDiff Toxin EIA START DATE/TIME: 08/12/2024 10:33 CDT FREE TEXT SOURCE: CDiff Toxin EIA FINAL REPORT CDiff Toxin EIA Final Report [] CDiff Toxin EIA Verified Date/Time: 08/12/2024 10:39 CDT CDiff Toxin EIA Positive for Clostridium difficile toxin A and/or B CDiff Toxin EIA called to Holli Bach at [facility] 08/12/2024 10:36:28 /dep/rbv CDiff Toxin EIA Order Comments CDiff Toxin EIA O1: CDiff Toxin EIA (C Diff Toxin EIA) CDiff Toxin EIA Diagnosis Description: Diarrhea, unspecified CDiff Toxin EIA Interpretive Data CDiff Toxin EIA i1: CDiff Toxin EIA CDiff Toxin EIA A positive result indicates that Clostidium difficule is present and is producing toxin CDiff Toxin EIA that is responsible for C. difficile infection. Treatment of a patient yielding a positive CDiff Toxin EIA PCR result with a negative toxin result should be based on clinical symptoms. Culture Stool 37431, 18114, 52085, 91401, 51942 Reviewed date:08/14/2024 11:39:11 AM Interpretation: Performing Lab: Notes/Report: Culture Stool LESLEE Sarmiento Culture Stool t: Culture Stool Culture Stool [facility] [id number] Culture Stool n: Culture Stool Microbiology Culture Stool PROCEDURE: Culture Stool [O1] Culture Stool SOURCE: Stool BODY SITE: Culture Stool COLLECTED DATE/TIME: 08/11/2024 11:00 CDT RECEIVED DATE/TIME: 08/11/2024 19:10 CDT Culture Stool START DATE/TIME: 08/11/2024 19:10 CDT FREE TEXT SOURCE: Culture Stool FINAL REPORT Culture Stool Final Report [] Culture Stool Verified Date/Time: 08/14/2024 05:27 CDT Culture Stool No Salmonella isolated Culture Stool No Shigella isolated Culture Stool No Yersinia isolated Culture Stool No Vibrio isolated Culture Stool No Campylobacter isolated Culture Stool No Aeromonas isolated Culture Stool No Plesiomonas isolated Culture Stool No Klebsiella oxytoca isolated Culture Stool Order Comments Culture Stool O1: Culture Stool (Culture Stool 52236, 60833, 87840, 87518, 85977) Culture Stool Diagnosis Description: Diarrhea, unspecified Zonisamide Quant (B) 86505 Reviewed date:01/18/2025 11:43:31 AM Interpretation:Normal Performing Lab: Notes/Report: Diagnosis Description: Other terminal make up operator (current) drug therapy Zonisamide Quantitative 23 10-40 NA INTERPRETIVE INFORMATION: Zonisamide Performed By: [facility] abnormalities. Pharmacokinetics varies widely, particularly with CLIA Number: [id number] [address] The proposed therapeutic range for seizure control is 10-40 ug/mL. co-medications and/or compromised renal function. Toxic: Greater than 80 ug/[place] [address] Toxic concentrations may cause coma, seizures and cardiac Product Accountant: Yusef Guillermo MD, PhD Therapeutic range: Not well established. CDiff/Epi--43214 Reviewed date:08/13/2024 05:39:03 PM Interpretation: Performing Lab: Notes/Report: CDiff/Epi LESLEE Sarmiento CDiff/Epi t: CDiff/Epi CDiff/Epi [facility] [id number] CDiff/Epi n: CDiff/Epi Microbiology CDiff/Epi PROCEDURE: CDiff/Epi [i1] CDiff/Epi SOURCE: Stool BODY SITE: CDiff/Epi COLLECTED DATE/TIME: 08/11/2024 13:39 CDT RECEIVED DATE/TIME: 08/12/2024 10:37 CDT CDiff/Epi START DATE/TIME: 08/12/2024 10:37 CDT FREE TEXT SOURCE: CDiff/Epi FINAL REPORT CDiff/Epi Final Report [] CDiff/Epi Verified Date/Time: 08/12/2024 10:39 CDT CDiff/Epi 027-NAP1-BI PRESUMPTIVE NEGATIVE CDiff/Epi Interpretive Data CDiff/Epi i1: CDiff/Epi CDiff/Epi A positive result indicates the presence of the virulent strain Clostridium difficile CDiff/Epi 027-NAP1-BI that is capable of producing toxin. It does not indicate toxin production. CDiff/Epi Toxin testing will be performed on PCR positive results. CDiff PCR Rfx C diff Toxin N AP/EPI 85141, 66864 Reviewed date:08/13/2024 05:38:36 PM Interpretation: Performing Lab: Notes/Report: Diagnosis Description: Enterocolitis due to Clostridium difficile, not specified as recurrent CDiff PCR Reflex POSITIVE ABN A positive result by PCR indicates the presence of Clostridium difficile bacteria that is capable of producing toxin. It does not indicate toxin production; treatment should be based on clinical symptoms. Toxin testing will be performed on PCR positive results. called to Holli Bach at [facility] 08/12/2024 10:36:28 /dep/rbv Urinalysis--51348 Reviewed date:05/14/2024 02:40:53 PM Interpretation: Performing Lab: Notes/Report: Specific gravity UA 1.010 Urine Nitrite positive Color UA orange Urine Blood negative Clarity UA cloudy Urine pH 6.0 Urine Glucose negative Urine Leukocyte 1+ Urine Protein negative Urine Bilirubin negative Urine Ketone negative Urobilinogen negative UA Without Micro-[place], [place] - [address] Reviewed date:10/09/2024 11:45:09 AM Interpretation: Performing Lab: Notes/Report: Color nella Clarity cloudy Glucose neg Bili +3 Ketones +5 Sp [place] 1.020 Blood neg pH 6.0 Protein neg Urobili +2 Nitrites positive Leukocytes +3 UA W/O Microscopic 23439 Reviewed date:11/25/2024 11:39:01 AM Interpretation: Performing Lab: Notes/Report: Color UA orange Clarity UA clear Specific gravity UA 1.020 Urine pH 6.0 Urine Glucose negative Urine Bilirubin negative Urine Ketone negative Urine Blood negative Urine Protein negative Urobilinogen negative Urine Nitrite positive Urine Leukocyte 1+ Zonisamide Quant (B) 38660 Reviewed date:01/18/2025 11:43:31 AM Interpretation:Normal Performing Lab: Notes/Report: Diagnosis Description: Epilepsy, unspecified, not intractable, without status epilepticus Zonisamide Quantitative 20 10-[address] Toxic: Greater than 80 ug/mL Toxic concentrations may cause coma, seizures and cardiac The proposed therapeutic range for seizure control is 10-40 ug/mL. abnormalities. Pharmacokinetics varies widely, particularly with INTERPRETIVE INFORMATION: [place] [address] CLIA Number: [id number] Therapeutic range: Not well established. co-medications and/or compromised renal function. Product Accountant: Yusef Guillermo MD, PhD Performed By: [facility] RA Factor 32381, 84275 Reviewed date:01/12/2025 06:35:22 PM Interpretation:High Performing Lab: Notes/Report: Diagnosis Description: Rheumatoid arthritis with rheumatoid factor of multiple sites without organ or systems involvement RA Factor 261.4 .0-14.0 IU/mL HI Result less than 10 Iu/ml will be considered as Negative. Thyroid Stimulating Hormone (TSH) 98451 Reviewed date:01/12/2025 06:35:22 PM Interpretation:Normal Performing Lab: Notes/Report: Diagnosis Description: Other assisted (current) drug therapy TSH .939 .358-3.740 MlU/ML Phenytoin (B) Total 18155 Reviewed date:01/12/2025 06:35:22 PM Interpretation:Normal Performing Lab: Notes/Report: Diagnosis Description: Other terminal make up operator (current) drug therapy Phenytoin 21.0 10.0-20.0 MCG/ML HI Lipid Panel Reflex DLDL 8006 1, 59232 Reviewed date:01/12/2025 06:35:22 PM Interpretation:Normal Performing Lab: Notes/Report: Diagnosis Description: Other terminal make up operator (current) drug therapy Trig 173 NA 15-19 yr 39-132 Children: Female 0-4 yr 34-112 Classification Guidelines:Triglyceride s 10-14 yr 32-125 Desirable <150 Children: Male High 200-499 Adults: >20yrs Borderline High 150-199 10-14 yr 37-131 0-4 yr 22-99 5-9 yr 32-105 5-9 yr 30-101 Very high >=500 15-19 yr 37-148 Chol 172 <=200 MG/DL HDL 49 39-96 MG/DL 5-9y 38-75 10-14y 37-70 Male: >=20y 40-59 15-19y 35-74 5-9y 36-73 10-14y 37-74 15-19y 30-63 Reference Ranges:HDL Female: >=20y 40-59 CH/HDL 3.5 0.0-4.9 RATIO LDL 88 0-130 MG/DL LDL result is inaccurate , if Trig is >400 mg/dl. See DLDL result. Comprehensive Metabolic Pane l (CMP) 90640 Reviewed date:01/12/2025 06:35:22 PM Interpretation:Normal Performing Lab: Notes/Report: Diagnosis Description: Other assisted (current) drug therapy Glucose Serum 102 71-110 MG/DL Testing p erformed at [facility], [address] [place] [address] [place] [address]. CLIA ID#: [id number] BUN 14 7-21 MG/DL Creat .73 .51-1.17 MG/DL Use of this assay is not recommended for patients undergoing treatment with phenindione, due to the potential for falsely depressed results. G-bcgktt-n-benzoquinon e imine (NAPQI) is a metabolite of acetaminophen, NAPQI concentrations of apparoximately 10 mg/L correlation to toxic levels of acetaminophen demonstrates a greater than or equil to 10% change in results. NAPQI concentrations greater than this may lead to falsely depressed results for patient samples. GFR 87.9 NA Calculation pe rformed from GFR calculator provided by the [employer]. Glomerular Filtration rate(GRF) is the best overall index of kidney function. Normal GFR varies according to age,sex, body size, and declines with age. The [employer] recommends using the CKD-EPI Creatinine Equation(2020) to estimate GFR. BUN/Creat Ratio 19.2 12.0-20.0 % Total Protein 6.9 5.8-8.0 G/DL Albumin 3.7 3.2-4.8 G/DL Globulin 3.2 2.3-3.5 G/DL Alb/Glob 1.2 0.8-2.2 Calcium 9.0 8.7-10.4 MG/DL Sodium 141 136-145 MMOL/L Potassium 4.3 3.5-5.1 MMOL/L Chloride 104 98-107 MMOL/L CO2 27.6 20.0-31.0 MMOL/L Anion Gap 14 5-15 Alk Phos 119 46-116 HI Bili Total .5 .3-1.2 MG/DL Use of this assay is not recommended for patients undergoing treatment with eltrombopag due to the potential for falsely elevated results. AST/SGOT 23 15-37 UNIT/L ALT/SGPT 24 12-78 UNIT/L Osmo Serum,Calculated 293 280-300 MOSM/KG CBC w\ Auto Diff 45550 Reviewed date:01/12/2025 06:35:22 PM Interpretation:Abnormal Performing Lab: Notes/Report: Diagnosis Description: Other assisted (current) drug therapy WBC 7.3 4.5-11.0 X10'3 RBC 3.36 4.00-5.20 X10'6 LOW Hgb 11.5 12.0-16.0 G/DL LOW Hct 38.3 36.0-46.0 % MCV 114.0 80.0-100.0 FL HI MCH 34.2 27.0-31.0 PG HI MCHC 30.0 31.0-37.0 G/DL LOW Platelet 270 150-400 X10'3 RDW-SD 55.2 35.0-49.0 FL HI RDW-CV 13.1 12.2-15.6 % MPV 10.1 9.2-12.0 FL Neutro Auto% 62.0 40.0-70.0 % Lymph Auto% 25.3 22.0-44.0 % [place] Auto% 7.9 3.0-7.0 % HI Eos Auto% 4.2 2.0-4.0 % HI Baso Auto% 0.5 0.0-1.0 % Imm Gran% .1 .0-.4 % Neutro Abs 4.52 .80-7.70 Absolute Neutrophil Count 4520 NA Lymph Abs 1.85 .10-4.10 [place] Abs .58 .20-1.00 Eos Abs .31 .00-.40 Baso Abs .04 .00-.20 Imm Gran Abs .01 .00-.10 NRBC# .00 .00-.20 X10'3 NRBC% .00 .00-.20 /100 intact WBC's COVID-19 RAPID - [id number] Reviewed date:02/22/2025 03:56:08 PM Interpretation: Performing Lab: Notes/Report: COVID19 negative Reason For Referral Reason elevated bnp Diagnosis 1 Seizure disorder (G4 0.909) Diagnosis 2 Hospital discharge f ollow-up (Z09) Diagnosis 3 Abnormal blood chemi stry (R79.9) Referral Organization [facility] Referring Provider First Name [facility] Referring Provider Last Name Trivedi Referring Provider Speciality Nurse Christina weaver Referred Provider Farooq Rivera Referred Provider Specialty Cardiovascul ar Disease General Notes Etselle Ramirez 10/2023 04:04:53 PM >No apt as of now per [facility] at [facility] Medical records Referral Priority Routine Medications Medication SIG (Take, Route, Frequency, Duration) Notes Start Date End Date Status clonazePAM 0.25 MG Tablet Disintegrating TAKE ONE TABLET BY MOUTH TWICE DAILY FOR SEIZURES Oral; Duration: 30 Days Active Fluticasone Propionate HFA 220 MCG/ACT Aerosol INHALE 1 PUFF BY MOUTH TWICE DAILY (shake WELL). FOR breathing/asthma; Duration: 30 Active Ventolin HFA 108 (90 Base) MCG/ACT Aerosol Solution INHALE TWO PUFFS with spacer BY MOUTH FOUR TIMES DAILY NEEDED SHAKE WELL 4 times a day prn; Duration: 25 days spacer Active Ondansetron HCl 4 mg Tablet TAKE ONE TABLET BY MOUTH EVERY 4 HOURS NEEDED FOR NAUSEA AND FOR VOMITING; Duration: 3 Active Pantoprazole Sodium 40 mg Tablet Delayed Release TAKE ONE TABLET BY MOUTH EVERY DAY FOR STOMACH.; Duration: 30 Active Sucralfate 1 GM/10ML Suspension TAKE 10ML BY MOUTH ON AN EMPTY STOMACH TWICE DAILY. (REPLACES SUCRALFATE TABS) FOR stomach; Duration: 30 Active Zonegran 100 mg Capsule TAKE ONE CAPSULE BY MOUTH TWICE DAILY FOR seizures.; Duration: 30 Active Maxitrol 3.5-47799-9.1 Ointment 1 application into the lower eyelid of affected eye Ophthalmic Three times a day; Duration: 7 days 11/16/2024 Active Vimpat 150 mg Tablet TAKE ONE TABLET BY MOUTH TWICE DAILY; Duration: 12 04/02/2025 Active Clotrimazole 1 % Cream apply externally TWICE DAILY NEEDED FOR rash; Duration: 30 Active Acetaminophen 325 mg Tablet TAKE TWO TABLETS BY MOUTH EVERY 6 HOURS NEEDED FOR PAIN OR FEVER >100; Duration: 30 Active Thick-It - Powder USES DIRECTED.; Duration: 30 Active FT Mucus Relief 12HR 600 mg Tablet Extended Release 12 Hour TAKE ONE TABLET BY MOUTH TWICE DAILY FOR 30 DAYS; Duration: 30 Active Budesonide-Formoterol Fumarate 80-4.5 MCG/ACT Aerosol INHALE TWO PUFFS BY MOUTH TWICE DAILY FOR 30 DAYS.; Duration: 30 Active Gas Relief Extra Strength 125 mg Capsule TAKE ONE CAPSULE BY MOUTH EVERY 8 HOURS NEEDED FOR GASTRITIS OR STOMACH; Duration: 10 Active Tamsulosin HCl 0.4 mg Capsule TAKE ONE CAPSULE BY MOUTH EVERY MORNING AND EVERY EVENING. FOR BLADDER; Duration: 60 Active SM Tussin DM Max 20-400 MG/20ML Liquid TAKE TWO TEASPOONFULS BY MOUTH TWICE DAILY NEEDED FOR DAYTIME COUGH.; Duration: 15 Active Fluticasone Propionate 50 MCG/ACT Suspension use one spray into each nostril every day (shake well).; Duration: 30 Active Daily-Len Multivitamin - Tablet TAKE ONE TABLET BY MOUTH EVERY DAY (100 DAYS); Duration: 100 Active levETIRAcetam 500 mg Tablet TAKE TWO TABLETS BY MOUTH EVERY TWELVE HOURS FOR seizures FOR 30 DAYS; Duration: 30 Active Montelukast Sodium 10 mg Tablet TAKE ONE TABLET BY MOUTH EVERY DAY; Duration: 30 Active diazePAM 10 MG Gel INSERT 5MG RECTALLY FOR SEIZURE LASTING MORE THAN 10 MINUTES; MAY REPEAT NEEDED DIRECTED.; Duration: 1 06/08/2024 Active Nitrofurantoin Macrocrystal 100 mg Capsule TAKE ONE CAPSULE BY MOUTH EVERY DAY FOR 30 DAYS FOR UTI SYMPTOMS; Duration: 30 Active busPIRone HCl 10 mg Tablet TAKE ONE TABLET BY MOUTH THREE TIMES DAILY FOR ANXIETY FOR 30 DAYS; Duration: 30 Active Mupirocin 2 % Ointment APPLY EXTERNALLY TWICE DAILY TO WOUND UNTIL CLEAR; Duration: 30 Active Benzonatate 100 MG Capsule 1 capsule as needed Orally Three times a day; Duration: 30 days 04/15/2025 05/15/2025 Active Cefdinir 300 MG Capsule Oral; Duration: 14 Days Active Vitamin B Complex - Tablet as directed Orally once a day; Duration: 30 days Active Phenazopyridine HCl 100 mg Tablet TAKE TWO TABLETS BY MOUTH TWICE DAILY FOR URINARY RETENTION FOR 30 DAYS; Duration: 30 Active Polyethylene Glycol 3350 17 GM/SCOOP Powder MIX ONE SCOOP WITH EIGHT OUNCES of FLUID DIRECTED AND drink BY MOUTH every other DAY FOR 30 DAYS; Duration: 30 Active Cyanocobalamin 1000 MCG/ML Solution INJECT 1ML INTRAMUSCULARLY MONTHLY; Duration: 90 Active Acidophilus Probiotic 0.5 MG Tablet TAKE DIRECTED ONCE DAILY; Duration: 90 Active Diclofenac Sodium 1 % Gel apply FOUR gra ms of gel FOUR TIMES DAILY TO affected joint NEEDED; Duration: 10 Active Anti-Diarrheal 2 mg Tablet TAKE ONE TABLET BY MOUTH FOUR TIMES DAILY NEEDED FOR DIARRHEA FOR 30 DAYS; Duration: 30 Active Triamcinolone Acetonide 0.1 % Cream APPLY TO THE AFFECTED AREA(S) NEEDED TO RASH.; Duration: 10 Active Dilantin Infatabs 50 mg Tablet Chewable TAKE ONE TABLET BY MOUTH THREE TIMES DAILY; Duration: 30 Active Famotidine 20 mg Tablet TAKE ONE TABLET BY MOUTH TWICE DAILY FOR stomach; Duration: 30 Active Promethazine-DM 6.25-15 MG/5ML Syrup take 5mL BY MOUTH EVERY 4 HOURS NEEDED FOR evening cough FOR 30 DAYS; Duration: 30 Active FLUoxetine HCl 10 mg Capsule TAKE ONE CAPSULE BY MOUTH ONCE A DAY AT NOON (IN ADDITION TO 20 MG) FOR 30 DAYS. (FOR depression); Duration: 30 Active predniSONE 5 mg Tablet TAKE ONE TABLET B Y MOUTH EVERY DAY FOR arthritis; Duration: 30 Active FLUoxetine HCl 20 mg Capsule TAKE ONE CAPSULE BY MOUTH EVERY DAY AT NOON FOR mood/anxiety; Duration: 30 Active Systane Ultra 0.4-0.3 % Solution instill one drop in each eye three times daily.(for dry eyes); Duration: 30 Active Folic Acid 1 mg Tablet TAKE ONE TABLET B Y MOUTH EVERY DAY FOR folic acid deficiency; Duration: 30 Active Immunizations Vaccine Route Administration Date Status Comme nts Flucelvax Trivalent, Syringe 0.5 mL, PF Unknown 04/16/2024 Refused Patient is al lergic to flu vaccine Flucelvax Trivalent, Syringe 0.5 mL, PF Unknown 03/18/2025 Contraindications Social History Tobacco Use: Social History Observation Description Date Details (start date - stop date) Never Smoker NA - NA Social History Depression Screening Social Info Question Answer Notes depression screening findings Findings Negative (0 -4) PHQ-9 Little interest or p amy in doing things Not at all Feeling down, depressed, or hopeless Not at all Trouble falling or staying asleep, or sleeping t oo much Not at all Feeling tired or having little energy Not at all Poor appetite or overeating Not at all Feeling bad about yourself, or that you are a failure, or have let yourself or your family down Not at all Trouble concentrating on thi ngs, such as reading the newspaper or watching television Not at all Moving or speaking so slowly that other people could have noticed. Or the opposite ? being so fidgety or restless that you have been moving around a lot more than usual Not at all Thoughts that you would be b hannah off , or of hurting yourself in some way Not at all Total Score 0 Drugs/Alcohol: Social Info Question Answer Notes Alcohol Screen (Audit-C) Did you have a drink containing alcohol in the past year? No Points 0 Interpretation Negative Drugs Have you used drugs other than those for medical reasons in the past 12 months? No Comprehensive Health Assessm ent Social Info Question Answer Notes *Social Determinants of Health Has lack of transportation kept you from medical appointments, meetings, work or from getting things needed for daily living? No Recently, have you worried t hat your food would run out before you got money to buy more? No Do you feel physically and emotionally safe wher e you currently live? Yes Are you worried about losing your housing? No Have you recently been celine rned that your utilities would be turned off (electricity, gas, or water)? No Tobacco Use: Social Info Question Answer Notes Tobacco Control (Standard) Tobacco use: Nonsmoker Additional Details Category Social Info Options Details Drugs/Alcohol: Do you smoke marijuana? De nies Do you drink alcohol? No Section Notes: Depression screen completed 02/10/2024 score 4, PHQ9 01/11/2025 Depression screen completed 02/10/2024 score 4 Depression screen completed 02/10/2024 score 4, PHQ9 01/11/2025, PHQ9 02/16/2025 01/04/2022 01/04/2022 01/04/2022 01/04/2022 01/04/2022 01/04/2022 01/04/2022 01/04/2022 01/04/2022 01/04/2022 Depression screen completed 01/18/2023 score 13 Depression screen completed 01/18/2023 score 13 Depression screen completed 01/18/2023 score 13 Depression screen completed 01/18/2023 score 13 Depression screen completed 01/18/2023 score 13 Depression screen completed 01/18/2023 score 13 Depression screen completed 01/18/2023 score 13 Depression screen completed 01/18/2023 score 13 Depression screen completed 01/18/2023 score 13 Depression screen completed 01/18/2023 score 13 Depression screen completed 01/18/2023 score 13 Depression screen completed 01/18/2023 score 13 Depression screen completed 01/18/2023 score 13 Depression screen completed 02/10/2024 score 4 Depression screen completed 02/10/2024 score 4 Depression screen completed 02/10/2024 score 4 Depression screen completed 02/10/2024 score 4 Depression screen completed 02/10/2024 score 4 Depression screen completed 02/10/2024 score 4 Depression screen completed 02/10/2024 score 4 Depression screen completed 02/10/2024 score 4 Depression screen completed 02/10/2024 score 4 Depression screen completed 02/10/2024 score 4 Depression screen completed 02/10/2024 score 4, PHQ9 01/11/2025 Depression screen completed 02/10/2024 score 4, PHQ9 01/11/2025, PHQ9 02/16/2025 01/04/2022 01/04/2022 01/04/2022 Depression screen completed 01/18/2023 score 13 Depression screen completed 02/10/2024 score 4 Depression screen completed 02/10/2024 score 4 01/04/2022 01/04/2022 01/04/2022 Depression screen completed 01/18/2023 score 13 Depression screen completed 01/18/2023 score 13 Problems Problem Type SNOMED Code ICD Code Onset Dates Problem Status W/U Status Risk Notes Problem Slow transit constipation (38580578) Slow transit constipation (K59.01) Active confirmed Problem Rheumatoid arthritis (76107337) Rheumatoid arthritis, unspecified (M06.9) Active confirmed Problem Acquired deformity of right hand (disorder) (240494876) Unspecified acquired deformity of hand, right hand (M21.941) Active confirmed Problem Acquired deformity of left hand (disorder) (039513622) Unspecified acquired deformity of hand, left hand (M21.942) Active confirmed Problem Pain in limb (23873043) Pain in right hand (M79.641) Active confirmed Problem Pain in limb (07594095) Pain in left hand (M79.642) Active confirmed Problem Acute cystitis (29086275) Acute cystitis with hematuria (N30.01) Active confirmed Problem Dysuria (41902860) Dysuria (R30.0) Active confi rmed Problem Abnormal weight loss (245621067) Abnormal weight loss (R63.4) Active confirmed Problem Therapeutic drug monitoring, quantitative (regime/therapy) (03157791) Encounter for therapeutic drug level monitoring (Z51.81) Active confirmed Problem Reduced mobility (4106049) Other reduced mobility (Z74.09) Active confirmed Problem Long-term current use of drug therapy (718933588) Other terminal make up operator (current) drug therapy (Z79.899) Active confirmed Problem Dependence on supplemental oxygen (476524102267) Dependence on supplemental oxygen (Z99.81) Active confirmed Problem Hand joint pain (515829017) Pain in joints of right hand (M25.541) Active confirmed Problem Hand joint pain (332612084) Pain in joints of left hand (M25.542) Active confirmed Problem Bronchitis (54313611) Bronchitis (J40) Active confirmed Problem Anxiety (81562076) Anxiety (F41.9) Active confi rmed Problem Rheumatoid arthritis (19071832) Rheumatoid arthritis flare (M06.9) Active confirmed Problem Acute pain of right knee (M25.561) Active confirmed Problem Urinary retention (664399086) Urinary retention (R33.9) Active confirmed Problem Hyperlipidaemia (07114034) Hyperlipidemia, unspecified hyperlipidemia type (E78.5) Active confirmed Problem Dependence on wheelchair (125620359) Wheelchair bound (Z99.3) Active confirmed Problem Urinary tract infectious disease (98110264) Chronic UTI (N39.0) Active confirmed Problem Dysphagia (31658524) Dysphagia, unspecified type (R13.10) Active confirmed Problem Constipation (10173071) Constipation (K59.00) Active confirmed Problem Rheumatoid arthritis (77687204) Rheumatoid arthritis involving multiple sites with positive rheumatoid factor (M05.79) Active confirmed Problem Annual health maintenance examination (68152402) Annual physical exam (Z00.00) Active confirmed Problem Depression (536558578) Other depression (F32.89) Active confirmed Problem Cystitis (02804248) Cystitis (N30.90) Active co nfirmed Problem Seizure disorder (308037931) Seizure disorder (G40.909) Active confirmed Problem Dry eyes (086122497) Dry eyes (H04.123) Active confirmed Problem Gastroesophageal reflux disease (763312396) GERD (gastroesophageal reflux disease) (K21.9) Active confirmed Problem Environmental allergy (340548325) Environmental allergies (Z91.09) Active confirmed Problem Disorder of brain (64590785) Acute encephalopathy (G93.40) Active confirmed Problem Abnormal gait (81761588) Decreased mobility (R26.89) Active confirmed Problem Rheumatoid arthritis (09900910) Rheumatoid arthritis, involving unspecified site, unspecified whether rheumatoid factor present (M06.9) Active confirmed Problem Indwelling urinary catheter, device (physical object) (31551218) Indwelling catheter present on admission (Z96.0) Active confirmed Problem Fracture of righ t patella with routine healing (S82.001D) Active confirmed Vital Signs Heart Rate 77 /min 03/18/2025 Temperature 97.3 degrees Fahrenheit 03/18/2025 Respiratory Rate 18 /min 03/18/2025 Blood pressure diastolic 64 mm Hg 03/18/2025 Oximetry 90 % 03/18/2025 Height-cm 144.78 cm 03/18/2025 Weight-kg 56.25 kg 03/18/2025 Height 57 in 03/18/2025 Blood pressure systolic 98 mm Hg 03/18/2025 Weight 124 lbs 03/18/2025 BMI 26.83 kg/m2 03/18/2025 Encounters Encounter Location Date Provider Diagnosis [facility] [address] [address] 02/16/2025 Marilyn Trivedi Encounter for Medicare annual wellness exam Z00.00 ; Seizure disorder G40.909 ; B12 deficiency E53.8 ; Rheumatoid arthritis involving multiple sites with positive rheumatoid factor M05.79 and Depression screening Z13.31 [facility] [address] [address] 03/18/2025 Marilyn Trivedi Sore throat J02.9 ; B12 deficiency E53.8 ; Seizure disorder G40.909 ; Rheumatoid arthritis involving multiple sites with positive rheumatoid factor M05.79 ; Strep pharyngitis J02.0 and Encounter for immunization Z23 [facility] [address] [address] 01/19/2025 Marilyn Trivedi Seizure disorder G40.909 ; B12 deficiency E53.8 and Rheumatoid arthritis involving multiple sites with positive rheumatoid factor M05.79 [facility] [address] [address] 12/24/2024 Marilyn Trivedi Seizure disorder G40.909 ; B12 deficiency E53.8 ; Rheumatoid arthritis involving multiple sites with positive rheumatoid factor M05.79 and Pain in joints of left hand M25.542 [facility] [address] [address] 11/16/2024 Marilyn Trivedi Bronchitis J40 ; Cough R05.9 ; Conjunctivitis H10.9 ; Seizure disorder G40.909 ; B12 deficiency E53.8 ; Rheumatoid arthritis involving multiple sites with positive rheumatoid factor M05.79 and Joint pain M25.50 [facility] [address] [place] [address] 10/15/2024 Marilyn Trivedi Seizure disorder G40.909 ; B12 deficiency E53.8 and Rheumatoid arthritis involving multiple sites with positive rheumatoid factor M05.79 [facility] [address] [place] [address] 09/15/2024 Marilyn Trivedi Seizure disorder G40.909 ; Rheumatoid arthritis involving multiple sites with positive rheumatoid factor M05.79 ; B12 deficiency E53.8 and Open wound T14.8XXA [facility] [address] [place] [address] 08/25/2024 Marilyn Trivedi Open wound T14.8XXA and Rash R21 [facility] [address] [place] [address] 07/27/2024 Marilyn Trivedi Bronchitis J40 [facility] [address] [place] [address] 06/23/2024 Marilyn Trivedi Seizure disorder G40.909 ; Rheumatoid arthritis involving multiple sites with positive rheumatoid factor M05.79 and B12 deficiency E53.8 [facility] [address] [place] [address] 05/26/2024 Marilyn Trivedi Seizure disorder G40.909 ; Rheumatoid arthritis involving multiple sites with positive rheumatoid factor M05.79 and B12 deficiency E53.8 [facility] [address] [facility] [address] [place] [address] 04/20/2024 Marilyn Trivedi Seizure disorder G40.909 ; Abnormal blood chemistry R79.9 ; Rheumatoid arthritis involving multiple sites with positive rheumatoid factor M05.79 ; B12 deficiency E53.8 and Joint pain M25.50 [facility] [address] [facility] [address] [place] [address] 08/20/2024 Marilyn Trivedi Seizure disorder G40.909 ; Rheumatoid arthritis involving multiple sites with positive rheumatoid factor M05.79 ; B12 deficiency E53.8 ; C. difficile diarrhea A04.72 and Hospital discharge follow-up Z09 [facility] [address] [place] [address] 07/20/2024 Marilyn Trivedi Seizure disorder G40.909 ; Pneumonia J18.9 ; Rheumatoid arthritis involving multiple sites with positive rheumatoid factor M05.79 and B12 deficiency E53.8 [facility] [address] [place] [address] 11/25/2024 January Disla Urinary tract infection, site not specified N39.0 [facility] [address] [place] [address] 10/09/2024 Marilyn Trivedi Urinary retention R33.9 [facility] [address] [place] [address] 08/11/2024 Marilyn Trivedi Diarrhea R19.7 [facility] [address] [place] [address] 01/11/2025 Marilyn Trivedi Seizure disorder G40.909 ; Rheumatoid arthritis involving multiple sites with positive rheumatoid factor M05.79 ; Urinary retention R33.9 ; Decreased mobility R26.89 ; Other assisted (current) drug therapy Z79.899 ; Anxiety F41.9 ; Tremor R25.1 and Depression screening Z13.31 [facility] [address] [place] [address] 01/12/2025 Marilyn Trivedi Seizure disorder G40.909 [facility] [address] [place] [address] 05/14/2024 Marilyn Trivedi Urinary tract infection, site not specified N39.0 [facility] [address] [place] [address] 07/27/2024 Marilyn Trivedi [facility] [address] [place] [address] 07/14/2024 Marilyn Trivedi [facility] [address] [place] [address] 07/08/2024 [facility] [place] [address] [place] [address] 06/04/2024 [facility] [place] [address] [place] [address] 04/15/2025 [facility] Cough R05.9 [facility] [place] [address] [place] [address] 03/11/2025 [facility] Conjunctivitis H10.9 [facility] [place] [address] [place] [address] 11/24/2024 [facility] [place] [address] [place] [address] 11/17/2024 [facility] [place] [address] [place] [address] 11/17/2024 [facility] [place] [address] [place] [address] 11/02/2024 [facility] [place] 10/16/2024 [facility] [place] [address] [place] [address] 10/15/2024 [facility] [place] [address] [place] [address] 10/12/2024 [facility] [place] [address] [place] [address] 09/21/2024 [facility] [place] [address] [place] [address] 09/11/2024 [facility] Open wound T14.8XXA [facility] [place] [address] [place] [address] 08/24/2024 [facility] [place] [address] [place] [address] 08/17/2024 [facility] [place] [address] [place] [address] 08/13/2024 Marilyn Trivedi [facility] [address] [address] 08/12/2024 [facility] C. difficile diarrhe a A04.72 [facility] [address] [address] 08/11/2024 [facility] Diarrhea R19.7 Assessments Encounter Date Diagnosis (ICD Code) Assessment Notes Treatment Notes Treatment Clinical Notes Section Notes 03/18/2025 Sore throat (ICD-10 - J02.9) rapid strep; positive 03/18/2025 B12 deficiency (ICD-10 - E53.8) b12 1000 mcg im 03/11/2025 Conjunctivitis (ICD-10 - H10.9) 01/11/2025 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) ra 01/11/2025 Seizure disorder (ICD-10 - G40.909) continue meds 12/24/2024 B12 deficiency (ICD-10 - E53.8) b12 1000 mcg im 12/24/2024 Seizure disorder (ICD-10 - G40.909) 10/09/2024 Urinary retention (ICD-10 - R33.9) 09/15/2024 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) depomedrol/deca dron im 09/15/2024 Seizure disorder (ICD-10 - G40.909) continue meds 09/11/2024 Open wound (ICD-10 - T14.8XXA) 08/25/2024 Rash (ICD-10 - R21) lotrisone dicflucan 08/25/2024 Open wound (ICD-10 - T14.8XXA) wound care; 08/20/2024 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 difficile diarrhea (ICD-10 - A04.72) 08/11/2024 Diarrhea (ICD-10 - R19.7) 08/11/2024 Diarrhea (ICD-10 - R19.7) 07/20/2024 Pneumonia (ICD-10 - J18.9) add spacer to ventalin rocephin 1 gram im cipro depomedrol/deca dron im 08/20/2024 Seizure disorder (ICD-10 - G40.909) continue meds 07/20/2024 Seizure disorder (ICD-10 - G40.909) continue meds 06/23/2024 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) depomedrol/deca dron im 06/23/2024 Seizure disorder (ICD-10 - G40.909) conitnue meds 05/14/2024 Urinary tract infection, site not specified (ICD-10 - N39.0) Tsering Trivedi notified of results. 04/20/2024 Seizure disorder (ICD-10 - G40.909) dr velasquez 04/20/2024 Abnormal blood chemistry (ICD-10 - R79.9) dr rivera office 04/15/2025 Cough (ICD-10 - R05.9) 02/16/2025 Encounter for Medicare annual wellness exam (ICD-10 - Z00.00) Please schedule your next AWV in 1 year. see eval 02/16/2025 Seizure disorder (ICD-10 - G40.909) continue meds 01/19/2025 B12 deficiency (ICD-10 - E53.8) b12 01/19/2025 Seizure disorder (ICD-10 - G40.909) 01/12/2025 Seizure disorder (ICD-10 - G40.909) 11/25/2024 Urinary tract infection, site not specified (ICD-10 - N39.0) 11/16/2024 Bronchitis (ICD-10 - J40) cephalexin depomedrol/deca dron im 10/15/2024 B12 deficiency (ICD-10 - E53.8) vit b12 10/15/2024 Seizure disorder (ICD-10 - G40.909) continue meds neurology as planned 07/27/2024 Bronchitis (ICD-10 - J40) cefdinir rocephin 1 gram im depomedrol/deca dron im 05/26/2024 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) depomedrol/deca dron im 11/16/2024 Cough (ICD-10 - R05.9) covid swab; negative 05/26/2024 Seizure disorder (ICD-10 - G40.909) continue meds 10/15/2024 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) depomedrol/deca dron im 05/26/2024 B12 deficiency (ICD-10 - E53.8) b12 1000 mcg im 11/16/2024 Conjunctivitis (ICD-10 - H10.9) maxitrol 01/19/2025 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) depomedrol/deca dron im 02/16/2025 B12 deficiency (ICD-10 - E53.8) b12 1000 mcg im 12/24/2024 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) depomedrol/deca dron im 04/20/2024 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) depomedrol/deca dron im prednisone po 06/23/2024 B12 deficiency (ICD-10 - E53.8) b12 1000 mcg im 07/20/2024 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) 08/20/2024 B12 deficiency (ICD-10 - E53.8) b12 1000 mcg 09/15/2024 B12 deficiency (ICD-10 - E53.8) b12 1000 mcg im 01/11/2025 Urinary retention (ICD-10 - R33.9) 03/18/2025 Seizure disorder (ICD-10 - G40.909) continue meds 03/18/2025 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) depomedrol/deca dron im 01/11/2025 Decreased mobility (ICD-10 - R26.89) 12/24/2024 Pain in joints of left hand (ICD-10 - M25.542) tramadol 09/15/2024 Open wound (ICD-10 - T14.8XXA) wound care; telfa; coban 07/20/2024 B12 deficiency (ICD-10 - E53.8) b12 1000 mcg 08/20/2024 C. difficile diarrhea (ICD-10 - A04.72) dificid 04/20/2024 B12 deficiency (ICD-10 - E53.8) b12 02/16/2025 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) depomedrol/deca dron im 11/16/2024 Seizure disorder (ICD-10 - G40.909) continue meds 11/16/2024 B12 deficiency (ICD-10 - E53.8) b12 1000 mcg 02/16/2025 Depression screening (ICD-10 - Z13.31) 04/20/2024 Joint pain (ICD-10 - M25.50) 08/20/2024 Hospital discharge follow-up (ICD-10 - Z09) 03/18/2025 Strep pharyngitis (ICD-10 - J02.0) amoxicillin 01/11/2025 Other terminal make up operator (current) drug therapy (ICD-10 - Z79.899) cbc cmp lipids tsh phenytoin zonigram 01/11/2025 Anxiety (ICD-10 - F41.9) continue meds 03/18/2025 Encounter for immunization (ICD-10 - Z23) 11/16/2024 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) 11/16/2024 Joint pain (ICD-10 - M25.50) tramadol 01/11/2025 Tremor (ICD-10 - R25.1) neuro as planned 01/11/2025 Depression screening (ICD-10 - Z13.31) 04/20/2024 Other Questions asked and answered; discharged to home. 05/26/2024 Other Questions asked and answered; discharged to home. 06/23/2024 Other Questions asked and answered; discharged to home. 07/20/2024 Other Questions asked and answered; discharged to home. 07/27/2024 Other Questions asked and answered; discharged to home. 08/20/2024 Other Questions asked and answered; discharged to home. 08/25/2024 Other Questions asked and answered; discharged to home. 09/15/2024 Other Questions asked and answered; discharged to home. 10/15/2024 Other Questions asked and answered; discharged to home. 11/16/2024 Other Questions asked and answered; discharged to home. 12/24/2024 Other Questions asked and answered; discharged to home. 01/11/2025 Other Questions asked and answered; discharged to home. Venipuncture: Performed by:Adrianna PEREZ Attempts: x1 Location: RAC Needle gauge: 22g Patient tolerated well. 01/12/2025 Other Venipuncture: Performed by: Adrianna PEREZ Attempts: x1 Location: RAC Needle gauge: 22g Patient tolerated well. 01/19/2025 Other Questions asked and answered; discharged to home. 02/16/2025 Other Questions asked and answered; discharged to home. 03/18/2025 Other Questions asked and answered; discharged to home. Plan Of Treatment Pending Test Test Name Order Date CDiff PCR Rfx C diff Toxin NAP/EPI 97143 , 95083 08/12/2024 Next Appt Details Provider Name:Marilyn Trivedi, 04/20/2025 11:20:00 AM, [address] [place] [address], [phone], Insurance Providers Payer Name Payer Address Payer Phone Subscriber Number Group Number Insured Name Patient Relationship to Insured Coverage Start Date Coverage End Date [place] Medicare Q[place] [address] [place] [address] [id number] LESLEE MELENDEZ Self - patient is the insured [place] Medicaid [address] [place] [address] [id number] LESLEE MELENDEZ Self - patient is the insured Medications Administered Medication Instructions Date of Administration Dosage Notes DEPO-Medrol 09/04/2021 40 mg NDC: [address]-40 Patient tolerated well, advised to wait 20 min at clinic DEPO-Medrol 10/02/2021 40 mg ndc 36754-734 3-1 pt tolerated well/instructed to wait 20 min DEPO-Medrol 10/24/2021 40 mg ndc 96640-066 3-1 pt tolerated well/ instructed to wait 20 min DEPO-Medrol 11/03/2021 40 mg NDC: [address]-15 Patient tolerated well, advised to wait 20 min at clinic DEPO-Medrol 12/08/2021 40 mg ndc 90160-349 3-1 pt tolerated well/instructed to wait 20 min DEPO-Medrol 01/05/2022 40 mg [facility] 30375-442 3-1 pt tolerated well/instructed to wait 20 min DEPO-Medrol 02/09/2022 40 mg [facility] 77860-333 2-1 pt tolerated well/instructed to wait 20 min DEPO-Medrol 03/19/2022 40 mg [facility] 95775-880 4-1 pt tolerated well/instructed to wait 20 min DEPO-Medrol 04/02/2022 40 mg NDC: [address]-23 Patient tolerated well, advised to wait 20 min at clinic DEPO-Medrol 04/13/2022 40 mg [facility] 8799-6436 - pt tolerated well/instructed to wait 20 min DEPO-Medrol 05/11/2022 40 mg [facility] 1338-9035 - pt tolerated well/instructed to wait 20 min DEPO-Medrol 07/20/2022 40 mg [facility]: [address]-03 Patient tolerated well, advised to wait 20 min at clinic DEPO-Medrol 09/04/2022 40 mg [facility] 22536-333 3-01 pt tolerated well/instructed to wait 20 min DEPO-Medrol 09/14/2022 40 mg [facility] 0967-6423 -01 pt tolerated well/instructed to wait 20 min DEPO-Medrol 10/19/2022 40 mg [facility] 76227-798 3-01 pt tolerated well/instructed to wait 20 min DEPO-Medrol 11/19/2022 40 mg [facility] 928070-20 73-01 pt tolerated well/instructed to wait 20 min DEPO-Medrol 12/21/2022 40 mg [facility] 14933-523 3-01 pt tolerated well/instructed to wait 20 min DEPO-Medrol 01/15/2023 40 mg [facility] 61904-871 3-01 pt tolerated well/instructed to wait 20 min DEPO-Medrol 02/18/2023 40 mg [facility] 65944-322 3-01 pt tolerated well/instructed to wait 20 min DEPO-Medrol 03/22/2023 40 mg [facility] 64849-228 3-01 pt tolerated well/instructed to wait 20 min DEPO-Medrol 04/12/2023 40 mg [facility] 72149-861 3-01 pt tolerated well/instructed to wait 20 min DEPO-Medrol 05/13/2023 40 mg [facility] 85615-129 3-01 pt tolerated well/instructed to wait 20 min DEPO-Medrol 06/24/2023 40 mg [facility] 36232-496 3-01 pt tolerated well/instructed to wait 20 min DEPO-Medrol 07/12/2023 40 mg [facility] 49118-322 3-01 pt tolerated well/instructed to wait 20 min DEPO-Medrol 08/19/2023 40 mg [facility] 11664-763 3-01 pt tolerated well/instructed to wait 20 min DEPO-Medrol 09/19/2023 40 mg [facility] 48173-972 3-01 pt tolerated well/instructed to wait 20 min DEPO-Medrol 10/24/2023 40 mg [facility] 30231-316 3-01 pt tolerated well/instructed to wait 20 min DEPO-Medrol 11/18/2023 40 mg [facility] 01414-293 3-01 pt tolerated well/instructed to wait 20 min DEPO-Medrol 12/10/2023 40 mg [facility] 05240-158 3-01 pt tolerated well/instructed to wait 20 min DEPO-Medrol 01/07/2024 40 mg [facility] 10977-434 3-01 pt tolerated well/instructed to wait 20 min DEPO-Medrol 01/20/2024 40 mg [facility] 85220-050 3-01 pt tolerated well/instructed to wait 20 min DEPO-Medrol 02/10/2024 40 mg one injection site/[facility] [address]-93 pt tolerated well/instructed to wait 20 min DEPO-Medrol 03/12/2024 40 mg [facility] 57263-563 3-01 pt tolerated well/instructed to wait 20 min DEPO-Medrol 04/20/2024 40 mg [facility] 44812-056 3-01 pt tolerated well/instructed to wait 20 min DEPO-Medrol 05/26/20[place] [address]-683 3-10 pt tolerated well/instructed to wait 20 min DEPO-Medrol 06/23/2024 40 mg [facility] 24224-281 3-10 pt tolerated well/instructed to wait 20 min DEPO-Medrol 07/20/2024 40 mg [facility] 27565-030 3-01 pt tolerated well/instructed to wait 20 min DEPO-Medrol 07/27/2024 40 mg [facility] 02742-932 3-01 pt tolerated well/instructed to wait 20 min DEPO-Medrol 08/20/2024 40 mg [facility] 64074-143 3- pt tolerated well/instructed to wait 20 min DEPO-Medrol 09/15/2024 40 mg [facility] 84152-899 3- pt tolerated well/instructed to wait 20 min DEPO-Medrol 10/15/2024 40 mg [facility] 70123-457 3- pt tolerated well/instructed to wait 20 min DEPO-Medrol 11/16/2024 40 mg [facility] 88606-807 3- pt tolerated well/instructed to wait 20 min DEPO-Medrol 12/24/2024 40 mg [facility] 46875-418 3- pt tolerated well/instructed to wait 20 min DEPO-Medrol 01/19/2025 40 mg [facility] 79175-536 3- pt tolerated well/instructed to wait 20 min DEPO-Medrol 02/16/2025 40 mg [facility] 29677-162 3- pt tolerated well/instructed to wait 20 min DEPO-Medrol 03/18/2025 40 mg [facility] 06537-244 3- pt tolerated well/instructed to wait 20 min dexAMETHasone 09/04/2021 1 mL NDC: 40328-228-25 Patient tolerated well, advised to stay at clinic 20 min dexAMETHasone 10/02/2021 4 mg [facility] 58393-5 39-30 pt tolerated well/instructed to wait 20 min dexAMETHasone 10/24/2021 4 mg 52466-844-1 0 pt tolerated well/instructed to wait 20 min dexAMETHasone 11/03/2021 4 mg NDC: 69027-583-38 Patient tolerated well, advised to wait 20 min at clinic dexAMETHasone 12/08/2021 [place] [address]-4 39-30 pt tolerated well/instructed to wait 20 min dexAMETHasone 01/05/2022 [place] [address]-3 39-30 pt tolerated well/instructed to wait 20 min dexAMETHasone 02/09/2022 4 mg ndc 16548-7 39-30 pt tolerated well/instructed to wait 20 min dexAMETHasone 03/19/20[place] [address]-0 39-30 pt tolerated well/instructed to wait 20 min dexAMETHasone 04/02/2022 4 mg [facility]: 82886-577-33 Patient tolerated well, advised to wait 20 in at clinic dexAMETHasone 04/13/2022 4 mg [facility] 14383-3 39-30 pt tolerated well/instructed to wait 20 min dexAMETHasone 05/11/2022 4 mg [facility] 0009-30 73-01 pt tolerated well/instructed to wait 20 min dexAMETHasone 07/20/2022 4 mg [facility]: [address]-87 Patient tolerated well, advised to wait 20 min at clinic dexAMETHasone 08/13/2022 [place] [address]-5 423-00 pt tolerated well/instructed to wait 20 min dexAMETHasone 09/04/2022 4 mg [facility] 83610-1 423-00 pt tolerated well/instructed to wait 20 min dexAMETHasone 09/14/2022 [place] [address]-6 423-00 pt tolerated well/instructed to wait 20 min dexAMETHasone 10/19/2022 4 mg [facility] 79050-0 423-00 pt tolerated well/instructed to wait 20 min dexAMETHasone 11/19/2022 4 mg [facility] 47401-6 423-00 pt tolerated well/instructed to wait 20 min dexAMETHasone 12/21/2022 4 mg [facility] 53370-1 423-00 pt tolerated well/instructed to wait 20 min dexAMETHasone 01/15/2023 4 mg [facility] 67198-0 419-00 pt tolerated well/instructed to wait 20 min dexAMETHasone 02/18/2023 4 mg [facility] 46805-4 423-00 pt tolerated well/instructed to wait 20 min dexAMETHasone 03/22/2023 4 mg [facility] 40718-6 423-00 pt tolerated well/instructed to wait 20 min dexAMETHasone 04/12/2023 [place] [address]-9 423-00 pt tolerated well/instructed to wait 20 min dexAMETHasone 05/13/2023 4 mg qpc01660-13 23-00 pt tolerated well/instructed to wait 20 min dexAMETHasone 06/24/2023 [place] [address]-9 423-00 pt tolerated well/instructed to wait 20 min dexAMETHasone 07/12/20[address] [place] [address]-9 423-00 pt tolerated well/instructed to wait 20 min dexAMETHasone 08/19/2023 4 mg ndc 89980-3 423-00 pt tolerated well/instructed to wait 20 min dexAMETHasone 09/19/2023 4 mg ndc 65126-5 423-00 pt tolerated well/instructed to wait 20 min dexAMETHasone 10/24/2023 4 mg ndc 36762-6 423-00 pt tolerated well/instructed to wait 20 min dexAMETHasone 11/18/2023 4 mg ndc 82973-8 423-00 pt tolerated well/instructed to wait 20 min dexAMETHasone 12/10/2023 4 mg ndc 52013-4 423-00 pt tolerated well/instructed to wait 20 min dexAMETHasone 01/07/2024 4 mg ndc 26603-1 423-00 pt tolerated well/instructed to wait 20 min dexAMETHasone 01/20/2024 4 mg ndc 54437-4 423-00 pt tolerated well/instructed to wait 20 min dexAMETHasone 02/10/2024 4 mg [place] [address]-53 pt tolerated well/instructed to wait 20 min dexAMETHasone 03/12/2024 [place] [address]-7 423-00 pt tolerated well/instructed to wait 20 min dexAMETHasone 04/20/2024 [place] [address]-2 423-00 pt tolerated well/instructed to wait 20 min dexAMETHasone 05/26/2024 [place] [address]-3 423-00 pt tolerated well/instructed to wait 20 min dexAMETHasone 06/23/2024 [place] [address]-1 419-00 pt tolerated well/instructed to wait 20 min dexAMETHasone 07/20/2024 4 mg ndc 30670-7 423-00 pt tolerated well/instructed to wait 20 min dexAMETHasone 07/27/2024 4 mg ndc 61907-0 423-00 pt tolerated well/instructed to wait 20 min dexAMETHasone 08/20/2024 [place] [address]-4 423-00 pt tolerated well/instructed to wait 20 min dexAMETHasone 09/15/2024 4 mg ndc 42945-9 423-00 pt tolerated well/instructed to wait 20 min dexAMETHasone 10/15/2024 4 mg ndc 56087-4 423-00 pt tolerated well/instructed to wait 20 min dexAMETHasone 11/16/2024 4 mg ndc 55782-8 423-00 pt tolerated well/instructed to wait 20 min dexAMETHasone 12/24/2024 [place] [address]-9 165-02 pt tolerated well/instructed to wait 20 min dexAMETHasone 01/19/2025 4 mg ndc 26071-3 423-00 pt tolerated well/instructed to wait 20 min dexAMETHasone 02/16/2025 4 mg ndc 28761-2 423-00 pt tolerated well/instructed to wait 20 min dexAMETHasone 03/18/2025 [place] [address]-4 423-00 pt tolerated well/instructed to wait 20 min Rocephin 04/02/2022 250 mg ND: 5871-3972-23 Patient tolerated well, advised to wait 20 in at clinic Rocephin 03/12/2024 [place] [address] -11 pt tolerated well/instructed to wait 20 min Rocephin 07/20/2024 [place] [address] -11 pt tolerated well/instructed to wait 20 min Rocephin 07/27/2024 1 g [facility] [address] -11 pt tolerated well/instructed pt to wait 20 min Cyanocobalamin 10/19/2022 1000 ug vial broug ht to clinic by caregiver from pharmacy/pt tolerated well/instructed to wait 20 min Cyanocobalamin 11/19/2022 1000 ug vial broug ht to clinic by aide.pt tolerated well/instructed to wait 20 min Cyanocobalamin 12/21/2022 1000 ug vial suppl ied by pharm/pt tolerated well/instructed to wait 20 min Cyanocobalamin 01/18/2023 1000 ug vial suppl ied by pharm/brought to clinic by aide/pt tolerated well/instructed to wait 20 min Cyanocobalamin 02/18/2023 1000 ug vial broug ht to clinic by aide from pharmacy/tolerated well/instructed to wait 20 min Cyanocobalamin 03/22/2023 1000 ug vial suppl ied by pharm/pt tolerated well/instructed to wait 20 min Cyanocobalamin 04/12/2023 1000 ug vial suppl ied by pharm/tolerated well/instructed to wait 20 min Cyanocobalamin 05/13/2023 1000 ug vial suppl ied by pharm/pt tolerated well/instructed to wait 20 min Cyanocobalamin 06/24/2023 1000 ug vial broug ht to clinic from pharmacy/pt instructed to wait 20 min/tolerated well Cyanocobalamin 07/12/2023 1000 ug vial suppl ied by pharm/pt tolerated well/instructed to wait 20 min Cyanocobalamin 09/19/2023 1000 ug pt brought vial from clinic/instructed to wait 20 min/tolerated well Cyanocobalamin 10/24/2023 1000 ug vial suppl ied by pharm/pt tolerated well/instructed to wait 20 min Cyanocobalamin 11/18/2023 1000 ug vial broug ht to clinic by aide/pt tolerated well/instructed to wait 20 min Cyanocobalamin 12/10/2023 1000 ug vial suppl ied by patient from pharmacy/pt tolerated well/instructed to wait 20 min Cyanocobalamin 01/07/2024 1000 ug vial suppl ied by patients home health aide/pt tolerated well/instructed to wait 20 min Cyanocobalamin 02/10/2024 1000 ug vial suppl ied by pharm to patient/pt tolerated well/instructed to wait 20 min Cyanocobalamin 03/12/2024 1000 ug supplied b y patient/pt tolerated well/instructed to wait 20 min Cyanocobalamin 04/20/2024 1000 ug supplied b y patient/pt tolerated well/instructed to wait 20 min Cyanocobalamin 05/26/2024 1000 ug supplied b y pharm/pt tolerated well/instructed to wait 20 min Cyanocobalamin 06/23/2024 1000 ug supplied b y pt from pharm/pt tolerated well/instructed to wait 20 min Cyanocobalamin 07/20/2024 1000 ug vial provi ded by pt from pharm/pt tolerated well/instructed to wait 20 min Cyanocobalamin 08/20/2024 1000 ug vial suppl ied by pt from pharm/pt tolerated well/instructed to wait 20 min Cyanocobalamin 09/15/2024 1000 ug supplied b y pt from pharm/pt tolerated well/instructed to wait 20 min Cyanocobalamin 10/15/2024 1000 ug vial suppl ied by pharm/pt tolerated well/instructed to wait 20 min Cyanocobalamin 11/16/2024 1000 ug vial suppl ied by pharm/pt tolerated well/instructed to wait 20 min Cyanocobalamin 12/24/2024 1000 mg [facility] 86424- 0005-01 pt tolerated well/instructed to wait 20 min Cyanocobalamin 01/19/2025 1000 ug vial suppl ied by home health aide from pharmacy/pt tolerated well/instructed to wait 20 min Cyanocobalamin 02/16/2025 1000 ug vial broug ht to clinic by pt/pt tolerated well/instructed to wait 20 min Cyanocobalamin 03/18/2025 1000 ug supplied b y pharm/pt tolerated well/instructed to wait 20 min Medical (General) History Medical History History ICD Code epilepsy multiple fractures cataracts Surgical History Surgery Date(Month/Year) vagal stimulator brain surgery skin graft, leg elbow,left cataract removal cataract-lens implants Hospitalization History Reason Date(Month/Year) see surgery hx UTI 10/15/2021
--- OUTSIDE RECORDS SUMMARY | 2025-04-18 10:54 | XMS_ITS | Encounter Summary ---
Author Organization [facility] Address [address] [place] [address] Care Team Providers Care Comber Setter Name Role Phone Marilyn Trivedi APN Primary Care Provider Encounter Details Date Type Department Care Team (Latest Contact Info) Description 01/16/2005 Outpatient Historical [facility] Neurology [address] [place] [address], [address] [place] [address] Jorge Suero MD NO ADDRESS ON FILE PSYCHO EPI W/O MENTN INTRACTABLE (CMS/HCC) (Primary Dx); CEREBRAL PALSY NOS (CMS/HCC) Social History Tobacco Use Types Packs/Day Years Used Date Smoking Tobacco: Never Assessed Comments Unknown Sex and Gender Information Value Date Recorded Sex Assigned at Not on file 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 [facility] [address] [place] [address] PCP - General 06/23/09 documented as of this encounter
--- OUTSIDE RECORDS SUMMARY | 2025-04-18 10:54 | XMS_ITS | Encounter Summary ---
Author Organization [facility] Address [address] [facility] [place] [address] Care Team Providers Care Cardroom Worker Name Role Phone Marilyn Trivedi APN Primary Care Provider [phone] Encounter Details Date Type Department Care Team (Latest Contact Info) Description 01/04/2003 Outpatient Historical [facility] Gordo Glaser MD NO ADDRESS ON FILE EPILEPSY NOS INTRACTABLE (CMS/HCC) (Primary Dx) Social History Tobacco Use Types Packs/Day Years Used Date Smoking Tobacco: Never Assessed Comments Unknown Sex and Gender Information Value Date Recorded Sex Assigned at Not on file 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
--- OUTSIDE RECORDS SUMMARY | 2025-04-18 10:54 | XMS_ITS | Encounter Summary ---
Author Organization [facility] Address [address] [place] [address] Care Team Providers Care Video Network Engineer Name Role Phone Marilyn Trivedi APN Primary Care Provider [phone] Encounter Details Date Type Department Care Team (Latest Contact Info) Description 02/12/2006 Outpatient Historical [facility] Neurology [address] [facility], [address] [place] [address] Jorge Suero MD NO ADDRESS ON FILE Grand Mal, not Intractabl ([facility]/HCC) (Primary Dx); Common Migraine without Mention of Intractable Migraine Social History Tobacco Use Types Packs/Day Years Used Date Smoking Tobacco: Never Assessed Comments Unknown Sex and Gender Information Value Date Recorded Sex Assigned at Not on file 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 [facility] [address] [place] [address] PCP - General 06/23/09 documented as of this encounter
--- OUTSIDE RECORDS SUMMARY | 2025-04-18 10:54 | XMS_ITS | Encounter Summary ---
Author Organization [facility] Address [address] [place] [address] Care Team Providers Care Access Consultant Name Role Phone Marilyn Trivedi APN Primary Care Provider [phone] Encounter Details Date Type Department Care Team (Latest Contact Info) Description 09/18/2005 Outpatient Historical [facility] Neurology [address] [place] [address], [address] [place] [address] Jorge Suero MD NO ADDRESS ON FILE Grand Mal, not Intractabl (CMS/HCC) (Primary Dx); Unspecified Mental Retardation; Unspecified Infantile Cerebral Palsy (CMS/HCC); Psychomotor Epilepsy, Intractable (CMS/HCC) Social History Tobacco Use Types Packs/Day Years Used Date Smoking Tobacco: Never Assessed Comments Unknown Sex and Gender Information Value Date Recorded Sex Assigned at Not on file 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 [facility] [address] [place] [address] PCP - General 06/23/09 documented as of this encounter
--- NOTE | 2025-04-18 11:23 | ECG_ITS ---
[facility] Test Date: 2025-04-18 Pat Name: Dasia Brian Department: Room: Gender: Female Contact Lens Flashing Puncher: : 1955 Requested By: Obed Latif Order Number: [id number] Cristian MD: Florida Rivera M.D. Measurements Intervals [place] Rate: 102 P: 3 [place]: 169 QRS: 29 QRSD: 75 T: 30 QT: 332 QTc: 432 Interpretive Statements SINUS TACHYCARDIA ABNORMAL RHYTHM ECG Compared to ECG 08/12/2024 20:42:03 Sinus rhythm no longer present Electronically Signed On 04-18-2025 17:37:22 CIVIL TRANSPORTATION ENGINEER by Florida Rivera M.D. [email or web address]
--- NOTE | 2025-04-18 11:44 | W.ED.URI ---
HPI - URI/Sore Throat General: Chief Complaint: Upper Respiratory Infection Stated Complaint: cough,stuffy Time Seen by Provider: 04/18/25 11:00 Source: other ([facility]) Mode of arrival: ambulatory Limitations: other (Unobtainable due to medical condition) History of Present Illness: Patient is a 69-year-old female with past medical history of encephalomalacia and epilepsy who is brought in by caregiver from [facility] for shortness of breath and respiratory distress onset today. Patient uses oxygen as needed at night, has been requiring 2 L to maintain above 90% and currently is 88% on 2 L, being bumped up to 4 L. Patient has also been having congestion, productive cough, and intermittent fevers. Patient cannot provide any history due to her chronic mental status, there are no reports of recent seizures. There have been reports of wheezing and patient does have strong cough at this time. She is tachycardic with elevated temperature at this time. Review of systems unobtainable. MD elicited complaint: fever, cough and other (Respiratory distress/shortness of breath/congestion) Related Data Home Medications ?Medication ?Instructions ?Recorded ?Confirmed folic acid 1 mg tablet 1 mg PO DAILY@11/25/19 08/12/24 montelukast 10 mg tablet 10 mg PO DAILY@11/25/19 08/12/24 (Singulair) multivitamin 1 tab PO DAILY@11/25/19 08/12/24 pantoprazole 40 mg tablet,delayed 40 mg PO DAILY@11/25/19 08/12/24 release (Protonix) phenazopyridine 95 mg tablet (Azo 190 mg PO BID PRN Bladder Spasms 11/25/19 08/12/24 Urinary Pain Relief) simethicone 125 mg capsule (Gas-X 125 mg PO Q8H PRN Stomach Upset 11/25/19 08/12/24 Extra Strength) zonisamide 100 mg capsule 100 mg PO BID@11/25/19 08/12/24 (Zonegran) Lactobacillus acidophilus 1 tab PO DAILY@10/15/21 08/12/24 (Acidophilus chewable tablet) albuterol sulfate 90 mcg/actuation 2 puff inhalation QID PRN 10/15/21 08/12/24 aerosol inhaler Shortness Of Breath diclofenac sodium 1 % topical gel 4 g topical QID PRN Pain/arthritis 10/15/21 08/12/24 fluoxetine 20 mg tablet 20 mg PO DAILY@12 10/15/21 08/12/24 food supplemt, lactose-reduced 1 ea PO TID@09,,10/15/21 08/12/24 (Nutritional Drink oral liquid) famotidine 20 mg tablet 20 mg PO BID 06/01/22 08/12/24 fluoxetine 10 mg capsule 10 mg PO DAILY@12 06/07/22 08/12/24 peg 400-propylene glycol 0.4 %-0.3 1 drp ophthalmic (eye) TID 06/07/22 08/12/24 % eye drops (Systane (propylene glycol)) phenytoin 50 mg chewable tablet 50 mg PO TID@08,,06/07/22 08/12/24 (Dilantin Infatabs) budesonide-formoterol HFA 80 2 puff inhalation BID 12/04/23 08/12/24 mcg-4.5 mcg/actuation aerosol inhaler buspirone 10 mg tablet 10 mg PO TID 12/04/23 08/12/24 clonazepam 0.25 mg disintegrating 0.25 mg PO BID 12/04/23 08/12/24 tablet lacosamide 150 mg tablet (Vimpat) 150 mg PO BID 12/04/23 08/12/24 loperamide 2 mg tablet 2 mg PO QID PRN Diarrhea 12/04/23 08/12/24 (Anti-Diarrheal (loperamide)) prednisone 5 mg tablet 5 mg PO QAM 12/04/23 08/12/24 sucralfate 100 mg/mL oral 10 ml PO BID 12/04/23 08/12/24 suspension tamsulosin 0.4 mg capsule (Flomax) 0.4 mg PO BID 07/06/24 08/12/24 acetaminophen 325 mg tablet 650 mg PO Q6H PRN pain or elevated 07/08/24 08/12/24 temp cyanocobalamin (vitamin B-12) 1,000 mcg IM Q30D 07/08/24 08/12/24 1,000 mcg/mL injection solution levetiracetam 500 mg tablet 2,000 mg PO BID 07/08/24 08/12/24 polyethylene glycol 3350 17 gram 17 g PO EVERY OTHER DAY 07/08/24 08/12/24 oral powder packet (Miralax) promethazine-DM 6.25 mg-15 mg/5 mL 5 ml PO Q4H PRN evening cough 07/08/24 08/12/24 oral syrup triamcinolone acetonide 0.1 % 1 applic topical BID PRN rash or 07/08/24 08/12/24 topical cream itching vitamin B complex 1 tab PO .DAILY@12PM 07/08/24 08/12/24 fluconazole 150 mg tablet 150 mg PO DAILY 08/31/24 methylprednisolone 4 mg tablets in See Rx Instructions PO PER PKG DIR 08/31/24 a dose pack (Medrol (Clarence)) Previous Rx's ?Medication ?Instructions ?Recorded albuterol sulfate 5 mg/mL(0.5 %) 5 mg inhalation TID PRN shortness 03/04/24 solution for nebulization of breath or wheezing #600 mL diazepam 5 mg-7.5 mg-10 mg rectal 10 mg NC Q4H PRN seizure activity 04/13/24 kit 2 doses #1 ea Allergies Allergy/AdvReac Type Severity Reaction Status Date / Time aspirin Allergy Unknown Verified 04/18/25 10:58 Influenza Virus Vaccines Allergy Unknown Verified 04/18/25 10:58 levofloxacin (From Levaquin) Allergy ALGY-Hives Verified 04/18/25 10:58 vancomycin Allergy ALGY-Hives Verified 04/18/25 10:58 Review of Systems General: Reports: ROS unobtainable due to medical condition PFSH ED PFSH: Medical History Chronic indwelling [place] catheter Encephalomalacia without cerebral infarction Altered mental status Pseudomonas urinary tract infection Elevated Dilantin level Acquired intellectual disability Dehydration Rheumatoid arthritis Seizures Brain injury Urinary retention Encephalopathy chronic Generalized epilepsy Epilepsy Surgical History History of craniotomy Family History Other No pertinent family history Social History Smoking and tobacco/nicotine status: former use of tobacco/nicotine Physical Exam Const: COMMON NORMALS: alert ORIENTATION/CONSCIOUSNESS: Yes awake OTHER: Active respiratory distress, chronically disoriented, responds to painful stimuli HENMT: OTHER: Dry oral mucosa Eye: COMMON NORMALS: Equal, round and reactive pupils present, EOMs intact bilaterally and no scleral icterus PUPIL: Yes Equal, round and reactive pupils present Neck/C-Spine: COMMON NORMALS: full ROM Resp: OTHER: Tachypneic, active coughing, appearing in respiratory distress. Rhonchi and grunting noted. Cardio: COMMON NORMALS: regular rhythm RATE: tachycardic RHYTHM: regular rhythm GI: COMMON NORMALS: Soft to palpation and non-tender PALPATION: Yes Soft to palpation Extremity: NARRATIVE EXTREMITY EXAM: Trace pitting edema bilateral lower extremities Neuro: COMMON NORMALS: moves all extremities, no focal motor deficits and no sensory deficits noted SENSORIUM/ORIENTATION: Yes alert Course Vital Signs: Vital signs: Vital Signs Temperature 99.8 F H 04/18/25 10:51 Pulse Rate 102 H 04/18/25 11:35 Respiratory Rate 28 H 04/18/25 11:35 Blood Pressure 114/67 04/18/25 12:15 Pulse Oximetry 90 04/18/25 12:15 Oxygen Delivery Me thod Nasal Cannula 04/18/25 11:35 Oxygen Flow Rate 4 04/18/25 11:35 MDM - URI/Sore Throat Medical Decision Making Patient presented from assisted living for shortness of breath and respiratory distress. Respiratory distress on exam noted with stridor and grunting, tachypnea and use of accessory muscles. Tachypneic as well. Elevated temperature 99.8, she also is placed on 2 L initially but cannot maintain above 90% so up to 4 L which she has maintained throughout ED stay. Blood pressure has been stable. Started on IV fluids, cultures obtained and lab workup ordered showing significant leukocytosis with elevated procalcitonin. This coincides with a chest x-ray showing left lower lobe pneumonia, picture concerning for sepsis and she is started on IV ceftriaxone and azithromycin. Patient will be admitted to the hospital by Dr. El, hospitalist. Dr. Godoy is informed of this patient's case and current findings and will place admit orders at this time. Lab Data 04/18/25 11:39 04/18/25 11:39 Radiology Impressions Chest X-Ray 04/18/25 10:51 IMPRESSION: 1. Interval development of patchy alveolar airspace disease in the left lingula and left lower lobe. Findings are suspicious for pneumonia. Recommend followup chest imaging to insure resolution of these findings. 2. Interval development of a small left pleural effusion. 3. Incidental/nonacute findings are listed in the report. Laboratory Results WBC 27.38 10^3/uL (3.29-11.43) H 04/18/25 11:39 RBC 2.79 10^6/uL (3.85-5.65) L 04/18/25 11:39 Hgb 9.50 g/dL (11.27-16.99) L 04/18/25 11:39 Hct 30.4 % (36-47) L 04/18/25 11:39 MCV 109.0 fl (85-98) H 04/18/25 11:39 MCH 34.1 pg (27-33) H 04/18/25 11:39 MCHC 31.3 g/dL (30-55) 04/18/25 11:39 RDW 13.0 % (12.1-15.1) 04/18/25 11:39 Plt Count 237 10^3/cmm (157-399) 04/18/25 11:39 MPV 9.2 fL (7.4-10.4) 04/18/25 11:39 Neut % (Auto) 89.1 % 04/18/25 11:39 Lymph % (Auto) 4.1 % 04/18/25 11:39 Hunt % (Auto) 5.9 % 04/18/25 11:39 Eos % (Auto) 0.1 % 04/18/25 11:39 Baso % (Auto) 0.3 % 04/18/25 11:39 Neut # (Auto) 24.38 10^3/uL (1.8-7.7) H 04/18/25 11:39 Lymph # (Auto) 1.1 10^3/uL (0.8-4.8) 04/18/25 11:39 Hunt # (Auto) 1.6 10^3/uL (0.2-0.9) H 04/18/25 11:39 Eos # (Auto) 0.0 10^3/uL (0.0-0.8) 04/18/25 11:39 Baso # (Auto) 0.1 10^3/uL (0.0-0.1) 04/18/25 11:39 Nucleated RBC % (auto) 0 % 04/18/25 11:39 Nucleated RBCs # 0.0 /100WBC 04/18/25 11:39 Sodium 138 mmol/L (136-145) 04/18/25 11:39 Potassium 3.8 mmol/L (3.5-5.1) 04/18/25 11:39 Chloride 103 mmol/L (98-107) 04/18/25 11:39 Carbon Dioxide 24 mmol/L (22-29) 04/18/25 11:39 Anion Gap 14.8 (5-19) 04/18/25 11:39 BUN 11 mg/dL (8-23) 04/18/25 11:39 Creatinine 0.7 mg/dL (0.5-0.9) 04/18/25 11:39 GFR Calculation 82.7 mL/min (90-130) L 04/18/25 11:39 Glucose 225 mg/dL (65-115) H 04/18/25 11:39 Calculated Osmolality 292 mOsm/kg (285-295) 04/18/25 11:39 Lactic Acid 2.1 mmol/L (0.5-2.2) 04/18/25 11:39 Calcium 8.5 mg/dL (8.5-10.5) 04/18/25 11:39 Total Bilirubin 0.9 mg/dL (0.15-1.2) 04/18/25 11:39 AST 22 U/L (0-32) 04/18/25 11:39 ALT 18 U/L (0-33) 04/18/25 11:39 Alkaline Phosphatase 121 U/L (35-105) H 04/18/25 11:39 NT-Pro-B Natriuret Pep 1202 pg/mL (0-125) H 04/18/25 11:39 Total Protein 6.6 g/dL (6.6-8.7) 04/18/25 11:39 Albumin 3.5 g/dL (3.5-5.2) 04/18/25 11:39 Globulin 3.1 g/dL (1.3-4.6) 04/18/25 11:39 Procalcitonin 1.16 ng/mL (0-0.5) H 04/18/25 11:39 Influenza A (PCR) Negative (Negative) 04/18/25 11:05 Influenza Type B (PCR) Negative (Negative) 04/18/25 11:05 RSV (PCR) Negative (Negative) 04/18/25 11:05 SARS-CoV-2 (PCR) Negative (Negative) 04/18/25 11:05 All radiology interpretation(s) finalized by discharge Discharge Plan Discharge Patient Disposition: Admitted As Inpatient Clinical Impression: Acute hypoxic respiratory failure Pneumonia Qualifiers: Pneumonia type: due to unspecified organism Laterality: left Lung location: lower lobe of lung Qualified Code(s): J18.9 - Pneumonia, unspecified organism Sepsis Qualifiers: Sepsis type: sepsis due to unspecified organism Sepsis acute organ dysfunction status: unspecified Qualified Code(s): A41.9 - Sepsis, unspecified organism Condition: Stable Coding Level of Care Code ED Dry Goods Inspector for Ady Vidal
[2025-04-18 11:46] LABS: Hematocrit 30.4 % (36-47); Hemoglobin 9.50 g/dL (11.27-16.99); Mean Corpuscular HGB Conc 31.3 g/dL (30-55); Mean Corpuscular Hemoglobin 34.1 pg (27-33); Mean Corpuscular Volume 109.0 fl (85-98); Nucleated Red Blood Cells % 0 %; Platelet Count 237 10^3/cmm (157-399); Red Blood Count 2.79 10^6/uL (3.85-5.65); White Blood Count 27.38 10^3/uL (3.29-11.43)
[2025-04-18 11:50] LABS: Respiratory Syncytial Virus Ce NEGATIVE (Negative); SARS-CoV-2 PCR NEGATIVE (Negative)
[2025-04-18 12:03] LABS: Lactic Sepsis W/Reflex 2.1 mmol/L (0.5-2.2)
[2025-04-18 12:13] LABS: NT Pro B Type Natriuretic Pept 1202 pg/mL (0-125); Procalcitonin 1.16 ng/mL (0-0.5)
[2025-04-18 12:20] LABS: Reflex Lactate Order REFLEX LACTIC ORDERD
[2025-04-18 12:23] LABS: Alanine Aminotransferase 18 U/L (0-33); Albumin Level 3.5 g/dL (3.5-5.2); Alkaline Phosphatase 121 U/L (35-105); Anion Gap 14.8 (5-19); Aspartate Amino Transferase 22 U/L (0-32); Blood Urea Nitrogen 11 mg/dL (8-23); Calcium 8.5 mg/dL (8.5-10.5); Carbon Dioxide 24 mmol/L (22-29); Chloride 103 mmol/L (98-107); Globulin 3.1 g/dL (1.3-4.6); Glucose 225 mg/dL (65-115); Osmolality Calculated 292 mOsm/kg (285-295); Potassium 3.8 mmol/L (3.5-5.1); Sodium 138 mmol/L (136-145); Total Protein 6.6 g/dL (6.6-8.7)
[2025-04-18] MEDS: cefTRIAXone 1,000 mg SDV 1000 MG IVP (12:34)
[2025-04-18 14:55] LABS: Lactic Acid level (Lactate) 1.9 mmol/L (0.5-2.2)
--- NOTE | 2025-04-18 16:19 | PM.HP ---
Providers/Chief Complaint Admitting Physician: Gildardo El Primary Care Provider: Marilyn Trivedi APN Chief Complaint: cough,stuffy History of Present Illness Dasia Brian is a 69 year old female with PMH of prior TBI, epilepsy, acquired intellectual disability, COPD, intermittent hypoxia, recurrent aspiration pneumonia, severe rheumatoid arthritis, prior C. difficile, Patient presented to the ED on 04/18/2025 with a 1 week history of progressive nonproductive cough, sinus congestion and respiratory distress. Tmax in the past 24 hours 99.2. Patient noted to have been hypoxic requiring persistent use of her supplemental oxygen to keep SpO2 between 90 - 92%. At baseline patient uses while sleeping. Patient has been somnolent for most of the day today. Per caregiver, patient may have had recent exposure to sick persons. ED Course Labs, 04/18/2025 1139 Infection / Inflammation LA 2.1 -> 1.9 PCT 1.16 Hemogram WBC 27.38 RBC 2.79 Hgb 9.5 MCV 109 MCH 34.1 Electrolytes Na 138 K3.8 Cl 103 Ca 8.5 CO2 24 AG 14.8 Renal BUN 11 CR 0.7 eGFR 82.7 Liver AST 22 ALT 18 ALP 121 T.Bili 0.9 T.Protein 6.6 Alb 3.5 Cardiac NT-proBNP 1202 Viral studies Influenza A/B (-), RSV (-), COVID (-) CXR, 04/22/2025 - Interval development of patchy alveolar airspace disease in the left lingula and left lower lobe. Findings are suspicious for pneumonia. - Interval development of a small left pleural effusion. Medications/Allergies Home Medications ?Medication ?Instructions ?Recorded ?Confirmed ?Last Taken ?Type folic acid 1 mg tablet 1 mg PO DAILY@11/25/19 04/18/25 04/18/25 08:00 History montelukast 10 mg tablet 10 mg PO DAILY@11/25/19 04/18/25 04/18/25 08:00 History (Singulair) multivitamin 1 tab PO DAILY@11/25/19 04/18/25 04/18/25 08:00 History pantoprazole 40 mg tablet,delayed 40 mg PO DAILY@11/25/19 04/18/25 04/18/25 08:00 History release (Protonix) phenazopyridine 95 mg tablet (Azo 190 mg PO BID PRN Bladder Spasms 11/25/19 04/18/25 04/18/25 08:00 History Urinary Pain Relief) simethicone 125 mg capsule (Gas-X 125 mg PO Q8H PRN Stomach Upset 11/25/19 04/18/25 Unknown History Extra Strength) zonisamide 100 mg capsule 500 mg PO BID@,11/25/19 04/18/25 04/18/25 08:00 History (Zonegran) Lactobacillus acidophilus 1 tab PO DAILY@08 10/15/21 04/18/25 04/18/25 08:00 History (Acidophilus chewable tablet) albuterol sulfate 90 mcg/actuation 2 puff inhalation QID PRN 10/15/21 04/18/25 08/12/24 History aerosol inhaler Shortness Of Breath diclofenac sodium 1 % topical gel 4 g topical QID PRN Pain/arthritis 10/15/21 04/18/25 Unknown History fluoxetine 20 mg tablet 20 mg PO DAILY@10/15/21 04/18/25 04/17/25 12:00 History food supplemt, lactose-reduced 1 ea PO TID@09,,10/15/21 04/18/25 04/18/25 09:00 History (Nutritional Drink oral liquid) famotidine 20 mg tablet 20 mg PO BID 06/01/22 04/18/25 08/12/24 History fluoxetine 10 mg capsule 10 mg PO DAILY@12 06/07/22 04/18/25 04/17/25 12:00 History peg 400-propylene glycol 0.4 %-0.3 1 drp ophthalmic (eye) TID 06/07/22 04/18/25 04/18/25 08:00 History % eye drops (Systane (propylene glycol)) phenytoin 50 mg chewable tablet 50 mg PO TID@08,,06/07/22 04/18/25 04/18/25 08:00 History (Dilantin Infatabs) budesonide-formoterol HFA 80 2 puff inhalation BID 12/04/23 04/18/25 04/18/25 08:00 History mcg-4.5 mcg/actuation aerosol inhaler buspirone 10 mg tablet 10 mg PO TID 12/04/23 04/18/25 04/18/25 08:00 History lacosamide 150 mg tablet (Vimpat) 150 mg PO BID 12/04/23 04/18/25 04/18/25 08:00 History loperamide 2 mg tablet 2 mg PO QID PRN Diarrhea 12/04/23 04/18/25 Unknown History (Anti-Diarrheal (loperamide)) prednisone 5 mg tablet 5 mg PO QAM 12/04/23 04/18/25 04/18/25 08:00 History sucralfate 100 mg/mL oral 10 ml PO BID 12/04/23 04/18/25 04/18/25 08:00 History suspension albuterol sulfate 5 mg/mL(0.5 %) 5 mg inhalation TID PRN shortness 03/04/24 04/18/25 08/12/24 Rx solution for nebulization of breath or wheezing #600 mL diazepam 5 mg-7.5 mg-10 mg rectal 10 mg FL Q4H PRN seizure activity 04/13/24 04/18/25 Unknown Rx kit 2 doses #1 ea tamsulosin 0.4 mg capsule (Flomax) 0.4 mg PO BID 07/06/24 04/18/25 04/18/25 08:00 History acetaminophen 325 mg tablet 650 mg PO Q6H PRN pain or elevated 07/08/24 04/18/25 08/12/24 History temp cyanocobalamin (vitamin B-12) 1,000 mcg IM Q30D 07/08/24 04/18/25 08/12/24 History 1,000 mcg/mL injection solution levetiracetam 500 mg tablet 2,000 mg PO BID 07/08/24 04/18/25 04/18/25 08:00 History (Keppra) polyethylene glycol 3350 17 gram 17 g PO EVERY OTHER DAY 07/08/24 04/18/25 04/17/25 History oral powder packet (Miralax) promethazine-DM 6.25 mg-15 mg/5 mL 5 ml PO Q4H PRN evening cough 07/08/24 04/18/25 Unknown History oral syrup triamcinolone acetonide 0.1 % 1 applic topical BID PRN rash or 07/08/24 04/18/25 08/12/24 History topical cream itching vitamin B complex 1 tab PO .DAILY@12PM 07/08/24 04/18/25 04/17/25 12:00 History fluticasone propionate 50 1 spray intranasal DAILY 04/18/25 04/18/25 04/18/25 08:00 History mcg/actuation nasal spray,suspension guaifenesin 600 mg tablet, 5 mg PO PRN PRN Cough 04/18/25 04/18/25 Unknown History extended release 12 hr (Mucus Relief ER) mupirocin 2 % topical ointment 1 applic topical BID 04/18/25 04/18/25 Unknown History Allergies Allergy/AdvReac Type Severity Reaction Status Date / Time aspirin Allergy Unknown Verified 04/18/25 10:58 Influenza Virus Vaccines Allergy Unknown Verified 04/18/25 10:58 levofloxacin (From Levaquin) Allergy ALGY-Hives Verified 04/18/25 10:58 vancomycin Allergy ALGY-Hives Verified 04/18/25 10:58 PFSH Acute PFSH: Medical History Chronic indwelling Longoria catheter Encephalomalacia without cerebral infarction Altered mental status Pseudomonas urinary tract infection Elevated Dilantin level Acquired intellectual disability Dehydration Rheumatoid arthritis Seizures Brain injury Urinary retention Encephalopathy chronic Generalized epilepsy Epilepsy Surgical History History of craniotomy Family History Other No pertinent family history Social History Smoking and tobacco/nicotine status: former use of tobacco/nicotine Vitals/I&O/Wt Last Vital Signs Temp 99.8 F H 04/18/25 10:51 Pulse 87 04/18/25 15:39 Resp 28 H 04/18/25 13:07 BP 98/52 04/18/25 15:39 Pulse Ox 93 04/18/25 15:39 O2 Del Method Nasal Cannula 04/18/25 14:00 O2 Flow Rate 4 04/18/25 14:00 04/18/25 04/18/25 04/18/25 06:59 14:59 22:59 Intake Total 1750 / 1750 Balance 1750 / 1750 Weight last 48 hrs Weight 54.431 kg Physical Exam Narrative: Constitutional: NAD Neuro: Somnolent. Requires tactile stimulit to awaken. Non-verbal. Head: NC/AT Eyes: PERRLA, EOMI Ears: Normal external ears. Hearing intact to normal voice. Nose: Normal external nose. No epistaxis. Throat: Dry MM Respiratory: Coarse crackles. No increased work of breathing. Cardiovascular: Regular w/ ectopic beats. No murmur. Extremities: No edema bilaterally Gastrointestinal: Soft. NT. ND. +BS Genitourinary: No longoria catheter Musculoskeletal: contractures of bilateral hands, diminished muscle tone Quick SOFA Score: Respiratory Rate: 24 Blood Pressure: 117/69 [place] Coma Scale: 15 qSOFA Score: 1 If qSOFA score 2 or greater, continue: Blood Pressure Mean: 85 Bilirubin (mg/dl): 0.9 Platelets (x10?/ml): 237 Creatinine (mg/dl): 0.7 Evaluation: Current stage of sepsis: sepsis Sepsis stage criteria used: [facility] Sep-1 and Sepsis-3 Focused Exam: Vital signs: Temp Pulse Resp BP Pulse Ox O2 Del Method O2 Flow Rate 04/18/25 17:43 98.4 F 84 17 91/59 93 Nasal Cannula 04/18/25 17:03 93 Nasal Cannula 4 04/18/25 15:42 Nasal Cannula 04/18/25 15:39 87 98/52 93 04/18/25 15:15 96/53 91 04/18/25 15:00 94/55 93 04/18/25 14:45 94/55 92 04/18/25 14:30 101/56 92 04/18/25 14:15 106/58 91 04/18/25 14:00 97/55 04/18/25 14:00 91 106/58 91 Nasal Cannula 4 04/18/25 13:45 97/55 96 04/18/25 13:30 92/53 92 04/18/25 13:15 108/60 04/18/25 13:07 102 H 28 H 93 Nasal Cannula 4 04/18/25 13:00 122/77 86 L 04/18/25 12:45 120/78 87 L 04/18/25 12:30 125/69 86 L 04/18/25 12:15 114/67 90 04/18/25 12:00 124/76 91 04/18/25 11:45 92 04/18/25 11:35 102 H 28 H 92 Nasal Cannula 4 04/18/25 11:30 131/71 94 04/18/25 11:15 118/73 77 L 04/18/25 11:10 141/80 92 04/18/25 10:51 99.8 F H 111 H 113/74 91 Nasal Cannula 2 Capillary refill: < 3 Seconds Skin exam: not diaphoretic and no mottling Date exam was performed: 04/18/25 Time exam was performed: 21:42 Sepsis Screen No Definite Risk Today, 15:15 Respiratory Rate, (12 - 18) 24 breaths/min H Today, 20:19 Blood Pressure 117/69 mmHg Today, 20:00 [place] Coma Scale Score 15 Today, 10:51 Quick SOFA Score 1 Today, 21:49 SOFA Score: Hans Coma Scale Score 15 Today, 10:51 Blood Pressure Mean 85 mmHg Today, 20:00 Total Bilirubin, (0.15-1.2) 0.9 mg/dL Today, 11:39 Platelet Count, (157-399) 237 10^3/cmm Today, 11:39 Creatinine, (0.5-0.9) 0.7 mg/dL Today, 11:39 Data 04/18/25 11:39 04/18/25 11:39 Micro: Microbiology 04/18/25 11:40 Blood Culture - Preliminary Blood SPECIMEN COLLECTED 04/18/25 11:39 Blood Culture - Preliminary Blood SPECIMEN COLLECTED A&P Assessment and plan 1. Community acquired pneumonia: Plan: # LLL Community Acquired PNA # Acute hypoxic respiratory failure At baseline uses 2L O2 at night. 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 can't take PO due to somnolence, hold home prednisone at risk for adrenal insufficiency, give stress dose of hydrocortisone 50 mg Q6H PDMP PDMP Reviewed: Not Reviewed Attestations Medical Necessity Statement*: Admitted under inpatient status, the patient will stay more than 2 midnights for the management of LLL pneumonia Coding Level of Care Code 80955 Diagnoses Community acquired pneumonia J18.9
[2025-04-18] MEDS: levETIRAcetam 2,000 MG/200 ML PREMIX 400 MG IV (18:33)
[2025-04-18 18:36] LABS: MRSA PCR OZH (swab) NOT DETECTED (Not Detecte)
[2025-04-18 19:14] LABS: Coronavirus 229E,HKU1,NL63,OC4 Not Detected (NOT DETECT); Parainfluenza Virus Type 1 Not Detected (NOT DETECT); Parainfluenza Virus Type 2 Not Detected (NOT DETECT); Parainfluenza Virus Type 3 Not Detected (NOT DETECT); Parainfluenza Virus Type 4 Not Detected (NOT DETECT); SARS-COV-2 Not Detected (NOT DETECT)
[2025-04-18] MEDS: hydrocortisone 100 mg/2 mL SDV IVP (21:02)
--- NOTE | 2025-04-18 21:18 | XRR_ITS ---
PROCEDURE INFORMATION: Exam: XR Chest Exam date and time: 04/18/2025 10:23 PM Age: 69 years old Clinical indication: Dyspnea; Prior surgery; Surgery date: 6+ months; Surgery type: Vagus nerve stimulator; Worsening dypsnea and audible lung sounds. ; Additional info: Difficulty breathing TECHNIQUE: Imaging protocol: Radiologic exam of the chest. Views: 1 view. COMPARISON: CR (CHEST, ) 04/18/2025 12:10 PM FINDINGS: Tubes, catheters and devices: Left upper chest generator noted with catheter or electrode extending toward the left neck base. Lungs: There is heterogeneous opacity at the left lung base which appears similar to prior. Clear right lung. Pleural spaces: Left pleural effusion. No pneumothorax on either side. Heart/Mediastinum: Heart is enlarged. Stable mild cardiomegaly. Bones/joints: Severe subjective bony demineralization. XR/XR chest 1V portable [id number] IMPRESSION: 1. Worsening airspace opacity in the left lung with small left pleural effusion. 2. Subjective bony demineralization could be quantified with DEXA.
--- NOTE | 2025-04-18 21:52 | W.PM.EVENTAC ---
Event Note Event Note: Visited the patient for in-person assessment. I was called by nursing staff with concerns regarding recent orders for IVF. On arrival, patient is noted to be in respiratory distress, using accessory muscles while on oxymask. She confirms she is willing to be intubated if indicated. Verbal orders given to start bipap, give 40mg IV furosemide, and update CXR. Hold IVF for now
[2025-04-18] MEDS: FUROsemide 10 mg/mL SDV 4mL 40 MG IVP (21:56)
[2025-04-18] MEDS: sodium chloride 0.9% (100 ml) 100 ML 104 ML (23:22)
--- NOTE | 2025-04-18 23:28 | PC.NURSE ---
Dilantin admin: Overrode medication from ER pyxis. Did not have access to NS ml bag so overrode ml BS bag and removed 90ml of NS, added 1ml of the dilantin and added it to the bag for 50mg in 11ml of NS.
[2025-04-19] VITALS (15 sets, daily range): BP systolic 96–130; BP diastolic 60–70; PULSE 82–105; RESP 17–28; TEMP 36.3–36.8; O2SAT 93–96
[2025-04-19 03:48] LABS: Hematocrit 26.1 % (36-47); Hemoglobin 8.00 g/dL (11.27-16.99); Mean Corpuscular HGB Conc 30.7 g/dL (30-55); Mean Corpuscular Hemoglobin 34.3 pg (27-33); Mean Corpuscular Volume 112.0 fl (85-98); Nucleated Red Blood Cells % 0 %; Platelet Count 202 10^3/cmm (157-399); Red Blood Count 2.33 10^6/uL (3.85-5.65); White Blood Count 22.67 10^3/uL (3.29-11.43)
[2025-04-19 04:14] LABS: Anion Gap 12.9 (5-19); Blood Urea Nitrogen 13 mg/dL (8-23); Calcium 8.1 mg/dL (8.5-10.5); Carbon Dioxide 24 mmol/L (22-29); Chloride 109 mmol/L (98-107); Glucose 177 mg/dL (65-115); Osmolality Calculated 298 mOsm/kg (285-295); Potassium 3.9 mmol/L (3.5-5.1); Sodium 142 mmol/L (136-145)
[2025-04-19] MEDS: levETIRAcetam 2,000 MG/200 ML PREMIX 400 MG IV ×2 (04:57→17:12)
[2025-04-19] MEDS: hydrocortisone 100 mg/2 mL SDV IVP ×2 (04:58→08:14)
--- NOTE | 2025-04-19 08:52 | XRR_ITS ---
PROCEDURE INFORMATION: Exam: XR Chest Exam date and time: 04/19/2025 10:40 AM Age: 69 years old Clinical indication: Shortness of breath; Prior surgery; Surgery date: 6+ months; Surgery type: Vagal nerve stimulator; Additional info: SOB TECHNIQUE: Imaging protocol: Radiologic exam of the chest. Views: 1 view. COMPARISON: CR (CHEST, ) 04/18/2025 10:23 PM FINDINGS: Tubes, catheters and devices: Stimulator device remains evident over the left chest. Overlying monitor leads are present. Lungs: No new focal or diffuse airspace disease. Opacity left lower lung, similar to prior. Pleural spaces: Probable left pleural fluid similar to prior. Heart/Mediastinum: Unremarkable. No cardiomegaly. Bones/joints: Unremarkable. Other findings: The patient is rotated. Low volumes. XR/XR chest 1V portable [id number] IMPRESSION: No significant change from the day prior
[2025-04-19 09:31] LABS: Ferritin 354 ng/mL (15-150); Iron 15 ug/dL (37-145); NT Pro B Type Natriuretic Pept 1887 pg/mL (0-125)
--- NOTE | 2025-04-19 09:54 | ECG_ITS ---
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 Measurements Intervals [place] Rate: 91 P: 25 LA: 162 QRS: 49 QRSD: 75 T: 54 QT: 378 QTc: 466 Interpretive Statements SINUS RHYTHM NONSPECIFIC T-WAVE ABNORMALITY Compared to ECG 04/18/2025 11:23:53 T-wave abnormality now present Sinus tachycardia no longer present Electronically Signed On 04-19-2025 10:41:05 SLPS by Florida Rivera M.D. [id number]
--- NOTE | 2025-04-19 09:58 | PC.CHAP ---
Pastoral Care Encounter/Spiritual Assessment Type of Contact [] Declined tube sorter visit [] Patient/Family/Request visit [] Outpatient visit [] Follow-up visit [] Physician referral [] Code/Alert [x] Routine visit [] Staff referral [] Actively dying [] Patient sleeping [] Family support [] [] Out of room [] Palliative care [] [] Receiving care in room [] Pre-surgical visit [] Trauma [] Long length of stay [] ICU visit [] Other: Relational/Emotional Strength [] Patient feels connected with others/family/visitors/staff [] Distress [] Loneliness/isolation [] Abandonment Spirituality of Patient [x] Person of Myesha [] Attends Presybeterian of their Myesha [x] Believes in Prayer [] Reads Bible or Caodaism materials [] There are Spiritual issues to be addressed Development Technologist Interventions [x] Prayer [x] Active listening [] Non-anxious presence [] Spiritual/emotional support [] Crisis/trauma care [] Spiritual counseling [] Bereavement support [] Provided bereavement packet [x] Provided Bible/devotional materials [] Provided toy/stuffed animal, coloring book to patient or family member [] Provided Communion [] Anointing/[place] [] Salvation [x Completed spiritual assessment [] Other: Impact on Illness or Injury [] Angry [] Fearful [] Anxious [] Often cries [] Exhaustion [] Unable to work [] Unable to attend congregation [] Unable to walk/stand [] Unable to read [] Unable to drive [] Unable to eat/drink [] Unable to sleep [] Unable to be with family [] Patient intubated [] Other: Summary Time spent with patient 5 min
[2025-04-19 10:12] LABS: Lactic Sepsis W/Reflex 0.7 mmol/L (0.5-2.2)
[2025-04-19 10:13] LABS: Troponin(5th) Baseline 19 ng/L (0-10)
[2025-04-19 10:16] LABS: ABG PCO2 39.3 mmHg (35-45); ABG PH Result 7.37 (7.35-7.45); Arterial Blood Gas Hematocrit 28.9 % (37-47); Blood Gas Operator Identificat glc; Blood Gas Sample Site Brachial, left; Blood Gas Sample Type Arterial; HCO3 ABG 22.8 mmol/L (22-26); PO2 ABG 129.0 mmHg (80.0-100.0); PO2 FiO2 Ratio Arterial Blood 258
[2025-04-19] MEDS: linezolid premix 600 MG/300 ML PREMIX 300 MG IV ×2 (12:06→22:53)
[2025-04-19 13:09] LABS: Troponin 5 2HR 16.63 ng/L (0-10)
[2025-04-19 13:10] LABS: Troponin 5 2HR Delta -2.37 ABS# (0-10)
--- NOTE | 2025-04-19 14:09 | P.PN_ITS ---
Subjective 2 Subjective: - Patient was seen this morning - Family members at bedside - Including patient's parents, and siste r - Overnight patient had evidence of acut e respiratory distress, requiring BiPAP currently she is on BiPAP at 50% FiO2, she is comfortable, no significant evidence of respiratory distress, she can follow some commands, but has intellectual disability, history of TBI, history of taking is difficult - She appears comfortable, - According to patient's, family she has recurrent aspiration at home ? They are aware about her recurrent aspiration and aspiration pneumonia as but she likes eating and they want her to enjoy her quality of life - We discussed goals of care, she is a D NR/DNI according to family they do not want to have aggressive interventions - We discussed a feeding tube however veronique balderas declines feeding tube placement as Dasia enjoys eating and they want her to have a quality of life - Discussed with my concerns for recurre nt aspiration, recurrent respiratory failure, aspiration pneumonia, aspiration pneumonitis, and morbidity and mortality associated - We discussed considering hospice care - Family will discuss but want to contin ue medical interventions for now Vitals/I&O/Wt Last Vital Signs Temp 97.9 F 04/19/25 11:44 Pulse 89 04/19/25 13:57 Resp 18 04/19/25 13:49 BP 108/68 04/19/25 11:44 Pulse Ox 94 04/19/25 13:57 O2 Del Method BiPAP 04/19/25 13:49 O2 Flow Rate 4 04/18/25 20:19 FiO2 40 04/19/25 13:57 04/18/25 04/19/25 04/19/25 22:59 06:59 14:59 Intake Total 1949 311 / 2261 Balance 1949 311 / 2261 Weight last 48 hrs Weight 54.204 kg Weight 57.425 kg Weight 54.431 kg Physical Exam 2 Const: COMMON NORMALS: no acute distress ORIENTATION/CONSCIOUSNESS: Yes awake, Yes oriented to person and Yes confused; not oriented to place and not oriented to time Eye: COMMON NORMALS: Equal, round and reactive pupils present PUPIL: Yes Equal, round and reactive pupils present Resp: COMMON NORMALS: normal respiratory effort, No retractions and No use of accessory muscles AUSCULTATION: crackles and wheezes Cardio: COMMON NORMALS: regular rate, regular rhythm, S1 normal heart sound present and S2 normal heart sound present RATE: regular rate RHYTHM: r egular rhythm HEART SOUNDS: S1 normal heart sound present and S2 normal heart sound present GI: COMMON NORMALS: Normal to inspection, nondistended, normoactive bowel sounds present and non-tender Extremity: COMMON NORMALS: no pedal edema Neuro: SENSORIUM/ORIENTATION: Yes oriented to person, No oriented to place and No oriented to time Psych: COMMON NORMALS: mental status grossly normal Data 04/19/25 03:41 04/19/25 03:41 Micro: Microbiology 04/18/25 11:40 Blood Culture - Preliminary Blood NEGATIVE TO DATE 04/18/25 11:39 Blood Culture - Preliminary Blood NEGATIVE TO DATE A&P Assessment and plan 1. Community acquired pneumonia: 2. Acute hypoxic respiratory failure: 3. Sepsis: 4. Recurrent aspiration pneumonia: 5. Acute encephalopathy: Plan: # Recurrent aspiration pneumonia # With acute hypoxic respiratory failure Plan 1 - N.p.o. - BiPAP therapy - Expand antibiotic coverage to vancomycin - Meropenem - Aspiration precautions, speech therapy eval # Sepsis w/o septic shock - Follow blood cultures # Macrocytic anemia Monitor # Epilepsy Resume home blood pressure medications # Urinarly Retention bladder scan if no urine output, at times straight caths at home # Rheumatoid arthritis - Continue stress dose hydrocortisone PDMP PDMP Reviewed: Not Reviewed Attestations 2 Medical Necessity Statement*: Patient requires hospitalization requiring aspiration pneumonia, respiratory failure Diagnoses Community acquired pneumonia J18.9 Acute hypoxic respiratory failure J96.01 Sepsis A41.9 Recurrent aspiration pneumonia J69.0 Acute encephalopathy G93.40
[2025-04-19] MEDS: hydrocortisone 100 mg/2 mL SDV 50 MG IVP ×2 (14:40→20:51)
--- NOTE | 2025-04-19 14:54 | ECG_ITS ---
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 Measurements Intervals [place] Rate: 102 P: 44 OR: 158 QRS: 32 QRSD: 85 T: 32 QT: 305 QTc: 398 Interpretive Statements SINUS TACHYCARDIA LOW QRS VOLTAGE IN PRECORDIAL LEADS [QRS DEFLECTION < 1.0 mV IN CHEST LEADS] NONSPECIFIC ST & T-WAVE ABNORMALITY ABNORMAL RHYTHM ECG Compared to ECG 04/19/2025 09:54:43 Low QRS voltage now present Sinus rhythm no longer present T-wave abnormality still present Electronically Signed On 04-19-2025 17:50:06 HIDE AND SKIN COLERER by Florida Rivera M.D. [email or web address]
[2025-04-19 15:49] LABS: Troponin 5 6HR 16.23 ng/L (0-10)
[2025-04-19 15:50] LABS: Troponin 5 6HR Delta -2.77 ng/L (0-12)
--- NOTE | 2025-04-19 19:32 | PC.NURSE ---
pts caregiver declined for longoria to be inserted currently.
[2025-04-20] VITALS (12 sets, daily range): BP systolic 111–128; BP diastolic 61–75; PULSE 89–104; RESP 16–20; TEMP 36.6–37.1; O2SAT 90–97
[2025-04-20] MEDS: hydrocortisone 100 mg/2 mL SDV 50 MG IVP ×3 (02:34→14:32)
[2025-04-20] MEDS: levETIRAcetam 2,000 MG/200 ML PREMIX 400 MG IV ×2 (05:44→17:36)
[2025-04-20 06:13] LABS: Hematocrit 25.7 % (36-47); Hemoglobin 7.80 g/dL (11.27-16.99); Mean Corpuscular HGB Conc 30.4 g/dL (30-55); Mean Corpuscular Hemoglobin 33.3 pg (27-33); Mean Corpuscular Volume 109.8 fl (85-98); Nucleated Red Blood Cells % 0 %; Platelet Count 281 10^3/cmm (157-399); Red Blood Count 2.34 10^6/uL (3.85-5.65); White Blood Count 19.74 10^3/uL (3.29-11.43)
[2025-04-20 06:29] LABS: Alanine Aminotransferase 17 U/L (0-33); Albumin Level 3.1 g/dL (3.5-5.2); Alkaline Phosphatase 109 U/L (35-105); Anion Gap 16.4 (5-19); Aspartate Amino Transferase 33 U/L (0-32); Blood Urea Nitrogen 22 mg/dL (8-23); Calcium 8.4 mg/dL (8.5-10.5); Carbon Dioxide 23 mmol/L (22-29); Chloride 109 mmol/L (98-107); Globulin 3.1 g/dL (1.3-4.6); Glucose 133 mg/dL (65-115); Magnesium 2.0 mg/dL (1.7-2.3); Osmolality Calculated 305 mOsm/kg (285-295); Potassium 3.4 mmol/L (3.5-5.1); Sodium 145 mmol/L (136-145); Total Protein 6.2 g/dL (6.6-8.7)
[2025-04-20 06:35] LABS: Lactate (Lactic Acid level) 1.7 mmol/L (0.5-2.2); Procalcitonin 0.94 ng/mL (0-0.5)
[2025-04-20] MEDS: linezolid premix 600 MG/300 ML PREMIX 300 MG IV ×2 (11:32→23:00)
--- NOTE | 2025-04-20 16:16 | P.PN_ITS ---
Subjective 2 Subjective: Patient was seen this morning, she is alert to person not to place, time she smiles at me, she is more interactive, on nasal cannula, - Discussed with patient's family - Patient's family wants to do a trial o f oral feeds - Discussed her risk of recurrent aspira tion, morbidity and mortality associated risk of recurrent pneumonia, and respiratory failure - Family does not want to have a feeding tube placed - Discussed trial of oral feeding, but r isk of recurrent aspiration - Discussed hospice as a long-term optio n however family wants to have have a discussion amongst themselves Vitals/I&O/Wt Last Vital Signs Temp 98.4 F 04/20/25 15:53 Pulse 90 04/20/25 15:53 Resp 19 H 04/20/25 15:53 BP 124/75 04/20/25 15:53 Pulse Ox 94 04/20/25 15:53 O2 Del Method Nasal Cannula 04/20/25 15:53 O2 Flow Rate 2 04/20/25 13:13 FiO2 40 04/20/25 04:50 04/20/25 04/20/25 04/20/25 06:59 14:59 22:59 Intake Total 300 / 800 500 / 500 Balance 300 / 800 500 / 500 Weight last 48 hrs Weight 54.431 kg Weight 54.204 kg Physical Exam 2 Const: COMMON NORMALS: no acute distress ORIENTATION/CONSCIOUSNESS: Yes awake and Yes oriented to person; not oriented to place and not oriented to time Resp: COMMON NORMALS: normal respiratory effort, No retractions and No use of accessory muscles AUSCULTATION: crackles and wheezes Cardio: COMMON NORMALS: regular rate, regular rhythm, S1 normal heart sound present and S2 normal heart sound present RATE: regular rate RHYTHM: r egular rhythm HEART SOUNDS: S1 normal heart sound present and S2 normal heart sound present GI: COMMON NORMALS: Normal to inspection, nondistended, normoactive bowel sounds present and non-tender Extremity: COMMON NORMALS: no clubbing, cyanosis or edema and no pedal edema Neuro: SENSORIUM/ORIENTATION: Yes oriented to person, No oriented to place and No oriented to time Data 04/20/25 05:59 04/20/25 05:59 Micro: Microbiology 04/18/25 11:40 Blood Culture - Preliminary Blood NEGATIVE TO DATE 04/18/25 11:39 Blood Culture - Preliminary Blood NEGATIVE TO DATE A&P Assessment and plan 1. Community acquired pneumonia: 2. Acute hypoxic respiratory failure: 3. Sepsis: 4. Recurrent aspiration pneumonia: 5. Acute encephalopathy: Plan: # Recurrent aspiration pneumonia # With acute hypoxic respiratory failure Plan - Aspiration precautions, dysphagia level 4 diet, extremely thickened - BiPAP therapy - Expand antibiotic coverage to vancomycin - Meropenem - Aspiration precautions, speech therapy eval # Sepsis w/o septic shock - Follow blood cultures # Macrocytic anemia Acute on chronic anemia repeat hemoglobin this afternoon # Epilepsy Resume home blood pressure medications # Urinarly Retention bladder scan if no urine output, at times straight caths at home # Rheumatoid arthritis - Continue stress dose hydrocortisone Acute encephalopathy secondary to sepsis, respiratory failure, aspiration DNR/DNI Lovenox for today prophylaxis currently on hold given acute on chronic anemia, SCDs PDMP PDMP Reviewed: Not Reviewed Attestations 2 Medical Necessity Statement*: Patient is hospitalization for acute hypoxic respiratory failure secondary to recurrent aspiration Diagnoses Community acquired pneumonia J18.9 Acute hypoxic respiratory failure J96.01 Sepsis A41.9 Recurrent aspiration pneumonia J69.0 Acute encephalopathy G93.40
[2025-04-20 17:48] LABS: Hematocrit 25.7 % (36-47); Hemoglobin 7.70 g/dL (11.27-16.99); Mean Corpuscular HGB Conc 30.0 g/dL (30-55); Mean Corpuscular Hemoglobin 33.5 pg (27-33); Mean Corpuscular Volume 111.7 fl (85-98); Nucleated Red Blood Cells % 0 %; Platelet Count 276 10^3/cmm (157-399); Red Blood Count 2.30 10^6/uL (3.85-5.65); White Blood Count 15.01 10^3/uL (3.29-11.43)
[2025-04-21] VITALS (19 sets, daily range): BP systolic 113–147; BP diastolic 63–90; PULSE 78–104; RESP 10–28; TEMP 36.4–37.3; O2SAT 90–100; BMI 23.4
[2025-04-21 04:58] LABS: Hematocrit 24.5 % (36-47); Hemoglobin 7.40 g/dL (11.27-16.99); Mean Corpuscular HGB Conc 30.2 g/dL (30-55); Mean Corpuscular Hemoglobin 33.5 pg (27-33); Mean Corpuscular Volume 110.9 fl (85-98); Nucleated Red Blood Cells % 0 %; Platelet Count 284 10^3/cmm (157-399); Red Blood Count 2.21 10^6/uL (3.85-5.65); White Blood Count 15.77 10^3/uL (3.29-11.43)
[2025-04-21 05:19] LABS: Alanine Aminotransferase 19 U/L (0-33); Albumin Level 2.9 g/dL (3.5-5.2); Alkaline Phosphatase 109 U/L (35-105); Anion Gap 13.7 (5-19); Aspartate Amino Transferase 20 U/L (0-32); Blood Urea Nitrogen 19 mg/dL (8-23); Calcium 8.4 mg/dL (8.5-10.5); Carbon Dioxide 24 mmol/L (22-29); Chloride 112 mmol/L (98-107); Globulin 2.8 g/dL (1.3-4.6); Glucose 141 mg/dL (65-115); Magnesium 2.2 mg/dL (1.7-2.3); Osmolality Calculated 309 mOsm/kg (285-295); Sodium 147 mmol/L (136-145); Total Protein 5.7 g/dL (6.6-8.7)
[2025-04-21] MEDS: levETIRAcetam 2,000 MG/200 ML PREMIX 400 MG IV (05:19)
[2025-04-21 05:28] LABS: Potassium 2.7 mmol/L (3.5-5.1)
[2025-04-21] MEDS: potassium chloride premix 100 ML 25 MEQ IV (06:06)
[2025-04-21] MEDS: hydrocortisone 100 mg/2 mL SDV 50 MG IVP ×2 (08:49→14:45)
--- NOTE | 2025-04-21 11:30 | PC.SOCIAL ---
IMM Update pg 2 of IMM updated and reviewed w/ patient. Copy provided and copy dated, initialed and placed in chart.
[2025-04-21] MEDS: linezolid premix 600 MG/300 ML PREMIX 300 MG IV ×2 (13:23→23:21)
[2025-04-21 14:46] LABS: Hematocrit 30.0 % (36-47); Hemoglobin 9.40 g/dL (11.27-16.99)
--- NOTE | 2025-04-21 16:14 | P.PN_ITS ---
Subjective 2 Subjective: Patient was seen this morning, family members at bedside, she is alert to person, place, not to time, does have a cough, discussed with family the risk of recurrent aspiration, she does not appear to be in respiratory distress, hemoglobin down to 7.4 discussed receiving a unit of PRBC Vitals/I&O/Wt Last Vital Signs Temp 98.1 F 04/21/25 15:46 Pulse 90 04/21/25 15:46 Resp 19 H 04/21/25 15:46 BP 113/69 04/21/25 15:46 Pulse Ox 91 04/21/25 15:46 O2 Del Method Nasal Cannula 04/21/25 16:03 O2 Flow Rate 2 04/21/25 16:03 FiO2 40 04/21/25 04:50 04/21/25 04/21/25 04/21/25 06:59 14:59 22:59 Intake Total 740 / 1880 750 / 750 Balance 740 / 1880 750 / 750 Weight last 48 hrs Weight 54.431 kg Weight 54.431 kg Physical Exam 2 Const: COMMON NORMALS: no acute distress and patient oriented x3 Eye: COMMON NORMALS: Equal, round and reactive pupils present and EOMs intact bilaterally PUPIL: Yes Equal, round and reactive pupils present Resp: COMMON NORMALS: normal respiratory effort, No retractions, No use of accessory muscles and clear to auscultation bilaterally AUSCULTATION: clear to auscultation bilaterally Cardio: COMMON NORMALS: regular rate, regular rhythm, S1 normal heart sound present and S2 normal heart sound present RATE: regular rate RHYTHM: r egular rhythm HEART SOUNDS: S1 normal heart sound present and S2 normal heart sound present GI: COMMON NORMALS: Normal to inspection, nondistended, normoactive bowel sounds present and non-tender Extremity: COMMON NORMALS: no pedal edema Neuro: COMMON NORMALS: patient oriented x3, CN's II-XII intact bilaterally and moves all extremities Psych: COMMON NORMALS: mental status grossly normal Data 04/21/25 14:33 04/21/25 04:35 A&P Assessment and plan 1. Community acquired pneumonia: 2. Acute hypoxic respiratory failure: 3. Sepsis: 4. Recurrent aspiration pneumonia: 5. Acute encephalopathy: Plan: # Recurrent aspiration pneumonia # With acute hypoxic respiratory failure Plan - Aspiration precautions, dysphagia level 4 diet, extremely thickened - BiPAP therapy - Expand antibiotic coverage to vancomycin - Meropenem - Aspiration precautions, speech therapy eval # Sepsis w/o septic shock - Follow blood cultures # Macrocytic anemia Acute on chronic anemia repeat hemoglobin this afternoon # Epilepsy Resume home blood pressure medications # Urinarly Retention bladder scan if no urine output, at times straight caths at home # Rheumatoid arthritis - Continue stress dose hydrocortisone Acute encephalopathy secondary to sepsis, respiratory failure, aspiration DNR/DNI Lovenox for today prophylaxis currently on hold given acute on chronic anemia, SCDs Plan for today transfuse 1 unit PRBC, monitor hemoglobin continue IV antibiotics PDMP PDMP Reviewed: Not Reviewed Attestations 2 Medical Necessity Statement*: Patient requires hospitalization for acute hypoxic respiratory failure secondary to pneumonia, sepsis Diagnoses Community acquired pneumonia J18.9 Acute hypoxic respiratory failure J96.01 Sepsis A41.9 Recurrent aspiration pneumonia J69.0 Acute encephalopathy G93.40
[2025-04-21] MEDS: sucralfate 1 gm/10 mL Oral Liq UDC PO (17:03)
[2025-04-21 17:22] LABS: Anion Gap 15.8 (5-19); Blood Urea Nitrogen 17 mg/dL (8-23); Calcium 8.4 mg/dL (8.5-10.5); Carbon Dioxide 21 mmol/L (22-29); Chloride 116 mmol/L (98-107); Glucose 165 mg/dL (65-115); Osmolality Calculated 311 mOsm/kg (285-295); Potassium 4.8 mmol/L (3.5-5.1); Sodium 148 mmol/L (136-145)
[2025-04-22] VITALS (16 sets, daily range): BP systolic 125–137; BP diastolic 52–76; PULSE 74–106; RESP 14–38; TEMP 36.6–36.9; O2SAT 96–99; BMI 23.4
[2025-04-22 04:44] LABS: Hematocrit 29.1 % (36-47); Hemoglobin 9.00 g/dL (11.27-16.99); Mean Corpuscular HGB Conc 30.9 g/dL (30-55); Mean Corpuscular Hemoglobin 32.7 pg (27-33); Mean Corpuscular Volume 105.8 fl (85-98); Nucleated Red Blood Cells % 0.2 %; Platelet Count 252 10^3/cmm (157-399); Red Blood Count 2.75 10^6/uL (3.85-5.65); White Blood Count 9.33 10^3/uL (3.29-11.43)
[2025-04-22 05:10] LABS: Alanine Aminotransferase 17 U/L (0-33); Albumin Level 2.9 g/dL (3.5-5.2); Alkaline Phosphatase 79 U/L (35-105); Anion Gap 12.8 (5-19); Aspartate Amino Transferase 15 U/L (0-32); Blood Urea Nitrogen 14 mg/dL (8-23); Calcium 8.4 mg/dL (8.5-10.5); Carbon Dioxide 23 mmol/L (22-29); Chloride 117 mmol/L (98-107); Globulin 2.1 g/dL (1.3-4.6); Glucose 109 mg/dL (65-115); Magnesium 2.0 mg/dL (1.7-2.3); Osmolality Calculated 309 mOsm/kg (285-295); Potassium 3.8 mmol/L (3.5-5.1); Sodium 149 mmol/L (136-145); Total Protein 5.0 g/dL (6.6-8.7)
[2025-04-22] MEDS: sucralfate 1 gm/10 mL Oral Liq UDC PO ×2 (05:46→17:50)
[2025-04-22 06:38] LABS: Glucose Urine UA Negative (Normal); Nitrate Urine Negative (Negative); Specific Gravity, Urine 1.028 (1.005-1.030)
[2025-04-22 06:43] LABS: Add Urine Microscopic? YES
--- NOTE | 2025-04-22 12:00 | P.PN_ITS ---
Subjective 2 Subjective: Patient was seen this morning, he is alert oriented x 1, she does awaken, falls back asleep in mild to moderate respiratory distress, nasal flaring, intercostal retractions suprasternal retractions, caregiver at bedside, discussed patient's respiratory distress likely secondary to recurrent aspiration, pneumonia, discussed morbidity and mortality associated, will monitor closely discussed with current aspiration, morbidity and mortality associated, poor prognosis, status is critical Vitals/I&O/Wt Last Vital Signs Temp 97.9 F 04/22/25 11:17 Pulse 94 04/22/25 11:25 Resp 20 H 04/22/25 11:17 BP 125/71 04/22/25 11:17 Pulse Ox 99 04/22/25 11:25 O2 Del Method BiPAP 04/22/25 11:17 O2 Flow Rate 2 04/22/25 04:00 FiO2 40 04/22/25 11:25 04/21/25 04/22/25 04/22/25 22:59 06:59 14:59 Intake Total 100 / 850 310 / 1160 Output Total 0 / 0 225 / 225 Balance 100 / 850 85 / 935 Weight last 48 hrs Weight 54.431 kg Weight 54.431 kg Physical Exam 2 Const: COMMON NORMALS: no acute distress ORIENTATION/CONSCIOUSNESS: Yes awake and Yes confused; not oriented to person, not oriented to place and not oriented to time Resp: AUSCULTATION: crackles and wheezes OTHER: Nasal flaring, intercostal retractions, suprasternal retractions, wheezing and crackles in all lung virk Cardio: COMMON NORMALS: regular rate, regular rhythm, S1 normal heart sound present and S2 normal heart sound present RATE: regular rate RHYTHM: r egular rhythm HEART SOUNDS: S1 normal heart sound present and S2 normal heart sound present GI: COMMON NORMALS: Normal to inspection, nondistended, normoactive bowel sounds present and non-tender Extremity: COMMON NORMALS: no pedal edema Neuro: SENSORIUM/ORIENTATION: No oriented to person, No oriented to place and No oriented to time Psych: COMMON NORMALS: mental status grossly normal Data 04/22/25 04:27 04/22/25 04:27 Micro: Microbiology 04/22/25 05:30 Legionella Urinary Antigen - Final Urine Catheterized A&P Assessment and plan 1. Community acquired pneumonia: 2. Acute hypoxic respiratory failure: 3. Sepsis: 4. Recurrent aspiration pneumonia: 5. Acute encephalopathy: Plan: # Recurrent aspiration pneumonia # With acute hypoxic respiratory failure Plan - Aspiration precautions, dysphagia level 4 diet, extremely thickened - BiPAP therapy - vancomycin - Meropenem - Aspiration precautions, speech therapy eval # Sepsis w/o septic shock - Follow blood cultures # Macrocytic anemia Acute on chronic anemia repeat hemoglobin this afternoon # Epilepsy Resume home blood pressure medications # Urinarly Retention bladder scan if no urine output, at times straight caths at home # Rheumatoid arthritis - Continue stress dose hydrocortisone Acute encephalopathy secondary to sepsis, respiratory failure, aspiration DNR/DNI Lovenox for today prophylaxis currently on hold given acute on chronic anemia, SCDs Plan-therapy, IV antibiotics, IV steroids monitor clinical status closely, prognosis poor, status critical PDMP PDMP Reviewed: Not Reviewed Attestations 2 Medical Necessity Statement*: Patient requires hospitalization for acute hypoxic respiratory failure Diagnoses Community acquired pneumonia J18.9 Acute hypoxic respiratory failure J96.01 Sepsis A41.9 Recurrent aspiration pneumonia J69.0 Acute encephalopathy G93.40
[2025-04-22] MEDS: linezolid premix 600 MG/300 ML PREMIX 300 MG IV ×2 (12:36→23:37)
[2025-04-22] MEDS: hydrocortisone 100 mg/2 mL SDV 50 MG IVP (12:37)
--- NOTE | 2025-04-22 16:34 | PC.NURSE ---
Bladder scan performed and 395 in bladder.
--- NOTE | 2025-04-22 18:20 | PC.NURSE ---
Bladder scanned patient and 395 in bladder. Straight cathed patient and 200 received in collection bag.
--- NOTE | 2025-04-22 22:00 | XRR_ITS ---
PROCEDURE INFORMATION: Exam: XR Chest Exam date and time: 04/22/2025 11:26 PM Age: 69 years old Clinical indication: Cough and dyspnea; Prior surgery; Surgery date: 6+ months; Surgery type: Vagal nerve stimulator; Additional info: Dyspnea/coughing TECHNIQUE: Imaging protocol: Radiologic exam of the chest. Views: 1 view. COMPARISON: CR XR chest 1V portable [id number] 04/19/2025 10:40 AM FINDINGS: Lungs: Unremarkable. No consolidation. Pleural spaces: Small left pleural effusion. Heart/Mediastinum: Cardiomegaly. Left thoracic generator device. Bones/joints: Unremarkable. XR/XR chest 1V portable [id number] IMPRESSION: Small left pleural effusion.
[2025-04-23] VITALS (14 sets, daily range): BP systolic 103–135; BP diastolic 53–82; PULSE 78–106; RESP 16–30; TEMP 36.4–37.3; O2SAT 93–100
[2025-04-23] MEDS: hydrocortisone 100 mg/2 mL SDV 50 MG IVP ×5 (00:26→23:02)
--- NOTE | 2025-04-23 01:38 | PC.NURSE ---
2029---MD was notified that pt was unable to finish night medications due to persistent cough. Assessment/RR reported and documented. Night medications were hold and pt was positioned at HOB> 45 degree. 2229---MD assessed pt at bedside. CXP stat and IV fluid was held per order. Notified MD of the results, and IV fluid was resumed per MD.
[2025-04-23] MEDS: sucralfate 1 gm/10 mL Oral Liq UDC PO ×2 (05:05→18:05)
[2025-04-23 05:08] LABS: Hematocrit 28.3 % (36-47); Hemoglobin 9.00 g/dL (11.27-16.99); Mean Corpuscular HGB Conc 31.8 g/dL (30-55); Mean Corpuscular Hemoglobin 33.0 pg (27-33); Mean Corpuscular Volume 103.7 fl (85-98); Nucleated Red Blood Cells % 0 %; Platelet Count 280 10^3/cmm (157-399); Red Blood Count 2.73 10^6/uL (3.85-5.65); White Blood Count 11.81 10^3/uL (3.29-11.43)
[2025-04-23 05:29] LABS: Alanine Aminotransferase 16 U/L (0-33); Albumin Level 2.9 g/dL (3.5-5.2); Alkaline Phosphatase 103 U/L (35-105); Anion Gap 10.7 (5-19); Aspartate Amino Transferase 20 U/L (0-32); Blood Urea Nitrogen 10 mg/dL (8-23); Calcium 8.0 mg/dL (8.5-10.5); Carbon Dioxide 24 mmol/L (22-29); Chloride 113 mmol/L (98-107); Globulin 2.5 g/dL (1.3-4.6); Glucose 145 mg/dL (65-115); Osmolality Calculated 300 mOsm/kg (285-295); Potassium 3.7 mmol/L (3.5-5.1); Sodium 144 mmol/L (136-145); Total Protein 5.4 g/dL (6.6-8.7)
--- NOTE | 2025-04-23 09:06 | PC.SOCIAL ---
(*IMM Update) Patient received updated IMM, Initialled, dated and place din chart.
[2025-04-23] MEDS: linezolid premix 600 MG/300 ML PREMIX 300 MG IV ×2 (12:42→23:02)
--- NOTE | 2025-04-23 15:22 | P.PN_ITS ---
Subjective 2 Subjective: Patient was seen this morning, patient's family is at bedside, she is much more alert and awake, she is able to smile for me, she is off BiPAP therapy, discussed with family my concerns for recurrent aspiration, aspiration pneumonitis, aspiration pneumonia, respiratory failure, and morbidity and mortality associated. Confirmed with family they do not want any feeding tube to be placed, confirmed from goals of care DNR/DNI, Dasia likes oral feeds, discussed with family that given her goals of care discussed options of continued medical interventions giving her time however this carries a risk of recurrent hospitalization and morbidity mortality associate with recurrent aspiration. As evidence of this hospitalization she has had 2 episodes of significant worsening of respiratory failure secondary to aspiration, even though she is on a dysphagia level 4 diet, moderately thickened and on aspiration precautions. The other option I discussed was hospice care, which would emphasize a quality of life, easing her pain easing her suffering allowing her to pass for comfortably we will continue to let her eat orally so she can enjoy a good quality of life, we can still give her antibiotics, but given her history she will likely recurrently aspirate and it is only a matter of time before her respiratory status again worsens, family not ready to make a decision Vitals/I&O/Wt Last Vital Signs Temp 97.6 F 04/23/25 11:53 Pulse 89 04/23/25 14:00 Resp 18 04/23/25 14:00 BP 103/53 04/23/25 11:53 Pulse Ox 93 04/23/25 14:00 O2 Del Method Nasal Cannula 04/23/25 14:00 O2 Flow Rate 3 04/23/25 14:00 FiO2 40 04/23/25 08:00 04/23/25 04/23/25 04/23/25 06:59 14:59 22:59 Intake Total 540 / 1840 1158.75 / 1158.75 Balance 540 / 1840 1158.75 / 1158.75 Weight last 48 hrs Weight 54.431 kg Weight 54.431 kg Physical Exam 2 Const: COMMON NORMALS: no acute distress Eye: OTHER: She smiles at me, is alert and awake Resp: COMMON NORMALS: normal respiratory effort, No retractions and No use of accessory muscles OTHER: Crackles and wheezing in all lung virk Cardio: COMMON NORMALS: regular rate, regular rhythm, S1 normal heart sound present and S2 normal heart sound present RATE: regular rate RHYTHM: r egular rhythm HEART SOUNDS: S1 normal heart sound present and S2 normal heart sound present GI: COMMON NORMALS: Normal to inspection, nondistended, normoactive bowel sounds present and non-tender Extremity: COMMON NORMALS: no pedal edema Data 04/23/25 04:44 04/23/25 04:44 Micro: Microbiology 04/18/25 11:40 Blood Culture - Final Blood NO GROWTH AFTER 5 DAYS 04/18/25 11:39 Blood Culture - Final Blood NO GROWTH AFTER 5 DAYS A&P Assessment and plan 1. Community acquired pneumonia: 2. Acute hypoxic respiratory failure: 3. Sepsis: 4. Recurrent aspiration pneumonia: 5. Acute encephalopathy: Plan: # Recurrent aspiration pneumonia # With acute hypoxic respiratory failure Plan - Aspiration precautions, dysphagia level 4 diet, extremely thickened - BiPAP therapy - vancomycin - Meropenem - Aspiration precautions, speech therapy eval # Sepsis w/o septic shock - Follow blood cultures # Macrocytic anemia Acute on chronic anemia repeat hemoglobin this afternoon # Epilepsy Resume home blood pressure medications # Urinarly Retention bladder scan if no urine output, at times straight caths at home # Rheumatoid arthritis - Continue stress dose hydrocortisone Acute encephalopathy secondary to sepsis, respiratory failure, aspiration DNR/DNI Lovenox for today prophylaxis currently on hold given acute on chronic anemia, SCDs Plan-therapy, IV antibiotics, IV steroids monitor clinical status closely, prognosis poor, status stable PDMP PDMP Reviewed: Not Reviewed Attestations 2 Medical Necessity Statement*: Patient requires hospitalization for recurrent aspiration pneumonia, respiratory failure Diagnoses Community acquired pneumonia J18.9 Acute hypoxic respiratory failure J96.01 Sepsis A41.9 Recurrent aspiration pneumonia J69.0 Acute encephalopathy G93.40
[2025-04-23] MEDS: ondansetron 2 mg/ML SDV 2 mL 4 MG IVP (23:02)
[2025-04-24] VITALS (15 sets, daily range): BP systolic 113–148; BP diastolic 63–84; PULSE 70–91; RESP 16–22; TEMP 36.6–36.9; O2SAT 90–99
[2025-04-24 04:44] LABS: Hematocrit 29.3 % (36-47); Hemoglobin 9.20 g/dL (11.27-16.99); Mean Corpuscular HGB Conc 31.4 g/dL (30-55); Mean Corpuscular Hemoglobin 32.6 pg (27-33); Mean Corpuscular Volume 103.9 fl (85-98); Nucleated Red Blood Cells % 0 %; Platelet Count 313 10^3/cmm (157-399); Red Blood Count 2.82 10^6/uL (3.85-5.65); White Blood Count 7.51 10^3/uL (3.29-11.43)
[2025-04-24] MEDS: sucralfate 1 gm/10 mL Oral Liq UDC PO ×2 (05:06→18:44)
[2025-04-24] MEDS: levETIRAcetam 2,000 MG/200 ML PREMIX 400 MG IV ×2 (05:09→18:44)
[2025-04-24 05:10] LABS: Alanine Aminotransferase 16 U/L (0-33); Albumin Level 2.8 g/dL (3.5-5.2); Alkaline Phosphatase 89 U/L (35-105); Anion Gap 11.4 (5-19); Aspartate Amino Transferase 16 U/L (0-32); Blood Urea Nitrogen 8 mg/dL (8-23); Calcium 7.9 mg/dL (8.5-10.5); Carbon Dioxide 24 mmol/L (22-29); Chloride 109 mmol/L (98-107); Globulin 2.7 g/dL (1.3-4.6); Glucose 115 mg/dL (65-115); Osmolality Calculated 291 mOsm/kg (285-295); Potassium 3.4 mmol/L (3.5-5.1); Sodium 141 mmol/L (136-145); Total Protein 5.5 g/dL (6.6-8.7)
[2025-04-24] MEDS: hydrocortisone 100 mg/2 mL SDV 50 MG IVP ×3 (05:56→18:45)
[2025-04-24] MEDS: ondansetron 2 mg/ML SDV 2 mL 4 MG IVP ×2 (06:55→19:58)
[2025-04-24] MEDS: linezolid premix 600 MG/300 ML PREMIX 300 MG IV (13:11)
--- NOTE | 2025-04-24 13:20 | P.PN_ITS ---
Subjective 2 Subjective: Patient was seen this morning, currently alert when she smiles at me, no family members at bedside she does not follow commands, is off BiPAP, discussed goals of care again with family, discussed hospice versus medical management concerns for recurrent aspiration, required respiratory failure, family is not ready to make a decision on hospice as they want to continue medical interventions, confirmed that she is DNR/DNI confirmed that they do not want a feeding tube, confirmed that they want to pursue medical interventions for now, if her condition starts to worsen they want to avoid aggressive interventions continued with fluids, continue IV antibiotics, continue BiPAP as needed, they want to continue to orally feed her as she doubts what she enjoys, but do report she is eating less than her normal, discussed disease process, discussed that Dasia is likely near the end of her life, morbidity and mortality discussed Vitals/I&O/Wt Last Vital Signs Temp 98.1 F 04/24/25 10:51 Pulse 84 04/24/25 11:33 Resp 22 H 04/24/25 11:33 BP 148/84 04/24/25 10:51 Pulse Ox 97 04/24/25 11:33 O2 Del Method Nasal Cannula 04/24/25 11:33 O2 Flow Rate 3 04/24/25 11:33 FiO2 40 04/23/25 08:00 04/23/25 04/24/25 04/24/25 22:59 06:59 14:59 Intake Total 141 / 1599.75 2051 / 3650.75 240 / 240 Output Total 225 / 225 350 / 575 Balance -84 / 1374.75 1701 / 3075.75 240 / 240 Weight last 48 hrs Weight 54.431 kg Weight 54.431 kg Physical Exam 2 Const: COMMON NORMALS: no acute distress ORIENTATION/CONSCIOUSNESS: Yes awake, Yes oriented to person and Yes confused; not oriented to place and not oriented to time OTHER: Lethargic at times Resp: COMMON NORMALS: normal respiratory effort, No retractions and No use of accessory muscles AUSCULTATION: wheezes Cardio: COMMON NORMALS: regular rate, regular rhythm, S1 normal heart sound present and S2 normal heart sound present RATE: regular rate RHYTHM: r egular rhythm HEART SOUNDS: S1 normal heart sound present and S2 normal heart sound present GI: COMMON NORMALS: Normal to inspection, nondistended, normoactive bowel sounds present, Soft to palpation, non-tender, no masses and no bruits P ALPATION: Yes Soft to palpation Extremity: COMMON NORMALS: no pedal edema Neuro: SENSORIUM/ORIENTATION: Yes oriented to person, No oriented to place and No oriented to time Urinary Catheter Management: [place]: Cath Placed During This Visit: yes Reason for Continuing Indwelling Catheter: Acute Urinary Retention or Obstruction Urinary Catheter Date of Insertion: 04/23/25 Urinary Catheter Time of Insertion: 18:00 Data 04/24/25 04:21 04/24/25 04:21 Micro: Microbiology 04/18/25 11:40 Blood Culture - Final Blood NO GROWTH AFTER 5 DAYS 04/18/25 11:39 Blood Culture - Final Blood NO GROWTH AFTER 5 DAYS A&P Assessment and plan 1. Community acquired pneumonia: 2. Acute hypoxic respiratory failure: 3. Sepsis: 4. Recurrent aspiration pneumonia: 5. Acute encephalopathy: Plan: # Recurrent aspiration pneumonia # With acute hypoxic respiratory failure Plan - Aspiration precautions, dysphagia level 4 diet, extremely thickened - BiPAP therapy - vancomycin - Meropenem - Aspiration precautions, speech therapy eval # Sepsis w/o septic shock - Follow blood cultures # Macrocytic anemia Acute on chronic anemia repeat hemoglobin this afternoon # Epilepsy Resume home blood pressure medications # Urinarly Retention bladder scan if no urine output, at times straight caths at home # Rheumatoid arthritis - Continue stress dose hydrocortisone Acute encephalopathy secondary to sepsis, respiratory failure, aspiration DNR/DNI Lovenox for today prophylaxis currently on hold given acute on chronic anemia, SCDs Plan-therapy, IV antibiotics, IV steroids monitor clinical status closely, prognosis poor, status stable PDMP PDMP Reviewed: Not Reviewed Attestations 2 Medical Necessity Statement*: Patient requires hospitalization for respiratory failure Diagnoses Community acquired pneumonia J18.9 Acute hypoxic respiratory failure J96.01 Sepsis A41.9 Recurrent aspiration pneumonia J69.0 Acute encephalopathy G93.40
--- NOTE | 2025-04-24 13:48 | PC.SLP ---
Patient sitting up in bed coughing entirety of time the therapist was there. Caregiver in room stated she had half a cup of pudding and refused the rest.
[2025-04-25] VITALS (14 sets, daily range): BP systolic 120–158; BP diastolic 69–90; PULSE 64–87; RESP 18–24; TEMP 36.3–37.1; O2SAT 90–99
[2025-04-25] MEDS: hydrocortisone 100 mg/2 mL SDV 50 MG IVP ×4 (00:35→17:18)
[2025-04-25] MEDS: linezolid premix 600 MG/300 ML PREMIX 300 MG IV ×2 (00:35→12:32)
[2025-04-25 03:58] LABS: Hematocrit 29.9 % (36-47); Hemoglobin 9.40 g/dL (11.27-16.99); Mean Corpuscular HGB Conc 31.4 g/dL (30-55); Mean Corpuscular Hemoglobin 32.9 pg (27-33); Mean Corpuscular Volume 104.5 fl (85-98); Nucleated Red Blood Cells % 0 %; Platelet Count 327 10^3/cmm (157-399); Red Blood Count 2.86 10^6/uL (3.85-5.65); White Blood Count 6.01 10^3/uL (3.29-11.43)
[2025-04-25 04:25] LABS: Alanine Aminotransferase 17 U/L (0-33); Albumin Level 2.7 g/dL (3.5-5.2); Alkaline Phosphatase 76 U/L (35-105); Anion Gap 9.3 (5-19); Aspartate Amino Transferase 15 U/L (0-32); Blood Urea Nitrogen 6 mg/dL (8-23); Calcium 7.9 mg/dL (8.5-10.5); Carbon Dioxide 27 mmol/L (22-29); Chloride 111 mmol/L (98-107); Globulin 2.5 g/dL (1.3-4.6); Glucose 156 mg/dL (65-115); Osmolality Calculated 299 mOsm/kg (285-295); Potassium 3.3 mmol/L (3.5-5.1); Sodium 144 mmol/L (136-145); Total Protein 5.2 g/dL (6.6-8.7)
[2025-04-25] MEDS: levETIRAcetam 2,000 MG/200 ML PREMIX 400 MG IV ×2 (05:31→17:18)
[2025-04-25] MEDS: potassium chloride oral liq 20 mEq/15 mL UDC 40 MEQ PO (05:54)
[2025-04-25] MEDS: sucralfate 1 gm/10 mL Oral Liq UDC PO ×2 (05:54→17:18)
[2025-04-25] MEDS: lidocaine 1% 5 ML in potassium chloride premix 100 ML 52.5 ML IV (09:15)
--- NOTE | 2025-04-25 11:28 | PM.PN ---
Subjective Subjective: Patient was seen this morning, she is alert to person, not place, to time, she is wheezing and crackles in all lung virk, no evidence of respiratory distress, afebrile overnight, normotensive Vitals/I&O/Wt Last Vital Signs Temp 97.8 F 04/25/25 08:00 Pulse 82 04/25/25 08:00 Resp 20 H 04/25/25 08:00 BP 130/77 04/25/25 08:00 Pulse Ox 96 04/25/25 08:00 O2 Del Method Nasal Cannula 04/25/25 07:31 O2 Flow Rate 96 04/25/25 08:00 FiO2 40 04/25/25 05:18 04/24/25 04/25/25 04/25/25 22:59 06:59 14:59 Intake Total 1522 / 2002 991 / 2993 100 / 100 Output Total 700 / 700 600 / 1300 Balance 822 / 1302 391 / 1693 100 / 100 Weight last 48 hrs Weight 54.431 kg Weight 54.431 kg Physical Exam Const: COMMON NORMALS: no acute distress ORIENTATION/CONSCIOUSNESS: Yes awake and Yes oriented to person; not oriented to place and not oriented to time Resp: COMMON NORMALS: normal respiratory effort, No retractions and No use of accessory muscles AUSCULTATION: crackles and wheezes Cardio: COMMON NORMALS: regular rate, regular rhythm, S1 normal heart sound present and S2 normal heart sound present RATE: regular rate RHYTHM: regular rhythm HEART SOUNDS: S1 normal heart sound present and S2 normal heart sound present GI: COMMON NORMALS: Normal to inspection, nondistended, normoactive bowel sounds present and non-tender Extremity: COMMON NORMALS: no pedal edema Neuro: SENSORIUM/ORIENTATION: Yes oriented to person, No oriented to place and No oriented to time Urinary Catheter Management: [place]: Cath Placed During This Visit: yes Reason for Continuing Indwelling Catheter: Other Urinary Catheter Date of Insertion: 04/23/25 Urinary Catheter Time of Insertion: 18:00 Data 04/25/25 03:42 04/25/25 03:42 A&P Assessment and plan 1. Community acquired pneumonia: 2. Acute hypoxic respiratory failure: 3. Sepsis: 4. Recurrent aspiration pneumonia: 5. Acute encephalopathy: Plan: # Recurrent aspiration pneumonia # With acute hypoxic respiratory failure Plan - Aspiration precautions, dysphagia level 4 diet, extremely thickened -Patient's family declines feeding tube placement -Wants to proceed with medical management -For now family is thinking about hospice, but no decision has been made -Discussed with patient's parents for risk of recurrent aspiration, morbidity and mortality associated, rehospitalization as needed - BiPAP therapy - vancomycin - Meropenem - Aspiration precautions, speech therapy eval # Sepsis w/o septic shock - Follow blood cultures # Macrocytic anemia Acute on chronic anemia repeat hemoglobin this afternoon # Epilepsy Resume home blood pressure medications # Urinarly Retention bladder scan if no urine output, at times straight caths at home # Rheumatoid arthritis - Continue stress dose hydrocortisone Acute encephalopathy secondary to sepsis, respiratory failure, aspiration DNR/DNI Lovenox for today prophylaxis currently on hold given acute on chronic anemia, SCDs Plan-therapy, IV antibiotics, IV steroids monitor clinical status closely, prognosis poor, status stable, reached out to patient's guardian Felamichael Lunsfordwer no family picked up PDMP PDMP Reviewed: Not Reviewed Attestations Medical Necessity Statement*: Patient requires hospitalization recurrent aspiration pneumonia, respiratory failure Diagnoses Community acquired pneumonia J18.9 Acute hypoxic respiratory failure J96.01 Sepsis A41.9 Recurrent aspiration pneumonia J69.0 Acute encephalopathy G93.40
[2025-04-25] MEDS: ondansetron 2 mg/ML SDV 2 mL 4 MG IVP (19:53)
[2025-04-26] VITALS (15 sets, daily range): BP systolic 128–154; BP diastolic 61–89; PULSE 71–89; RESP 16–26; TEMP 36.4–36.9; O2SAT 91–96
[2025-04-26] MEDS: hydrocortisone 100 mg/2 mL SDV 50 MG IVP ×5 (01:22→23:10)
[2025-04-26] MEDS: linezolid premix 600 MG/300 ML PREMIX 300 MG IV ×3 (01:22→23:11)
[2025-04-26 03:57] LABS: Hematocrit 29.8 % (36-47); Hemoglobin 9.40 g/dL (11.27-16.99); Mean Corpuscular HGB Conc 31.5 g/dL (30-55); Mean Corpuscular Hemoglobin 33.3 pg (27-33); Mean Corpuscular Volume 105.7 fl (85-98); Nucleated Red Blood Cells % 0 %; Platelet Count 392 10^3/cmm (157-399); Red Blood Count 2.82 10^6/uL (3.85-5.65); White Blood Count 10.55 10^3/uL (3.29-11.43)
[2025-04-26 04:21] LABS: Alanine Aminotransferase 20 U/L (0-33); Albumin Level 2.7 g/dL (3.5-5.2); Alkaline Phosphatase 78 U/L (35-105); Aspartate Amino Transferase 21 U/L (0-32); Blood Urea Nitrogen 4 mg/dL (8-23); Calcium 7.7 mg/dL (8.5-10.5); Carbon Dioxide 26 mmol/L (22-29); Chloride 110 mmol/L (98-107); Globulin 2.4 g/dL (1.3-4.6); Glucose 139 mg/dL (65-115); Osmolality Calculated 295 mOsm/kg (285-295); Sodium 143 mmol/L (136-145); Total Protein 5.1 g/dL (6.6-8.7)
[2025-04-26 04:22] LABS: Anion Gap 10.1 (5-19); Potassium 3.1 mmol/L (3.5-5.1)
[2025-04-26] MEDS: sucralfate 1 gm/10 mL Oral Liq UDC PO ×2 (04:35→16:55)
[2025-04-26] MEDS: levETIRAcetam 2,000 MG/200 ML PREMIX 400 MG IV ×2 (04:46→16:55)
[2025-04-26] MEDS: potassium chloride oral liq 20 mEq/15 mL UDC 40 MEQ PO (05:19)
--- NOTE | 2025-04-26 09:14 | XR_ITS ---
WS: [id number] Exam: XR chest 1V portable [id number] Date/Time of Exam: 04/26/2025 9:16 AM Reason For Exam: hypoxemia Comparison 04/22/2025. There is now total white out of the LEFT pleural cavity. The RIGHT lung is clear and fully inflated. The heart is probably unchanged in size but the LEFT heart border is obscured. There may be air in the esophagus. Neurostimulator seen over the LEFT chest with the lead extending cephalad. XR/XR chest 1V portable [id number] IMPRESSION: 1. Total white out of the LEFT pleural cavity. Differential considerations woul d include bronchial obstruction, large pleural effusion or pulmonary consolidat ion.
--- NOTE | 2025-04-26 14:24 | P.PN_ITS ---
Subjective 2 Subjective: seen with family at bedside having bouts of coughing Vitals/I&O/Wt Last Vital Signs Temp 97.7 F 04/26/25 11:48 Pulse 79 04/26/25 14:12 Resp 18 04/26/25 14:12 BP 128/61 04/26/25 11:48 Pulse Ox 94 04/26/25 14:12 O2 Del Method Nasal Cannula 04/26/25 14:12 O2 Flow Rate 3 04/26/25 14:12 FiO2 40 04/25/25 05:18 04/25/25 04/26/25 04/26/25 22:59 06:59 14:59 Intake Total 572 / 1777 1479.75 / 3256.75 Output Total 600 / 600 800 / 800 Balance -28 / 1177 1479.75 / 2656.75 -800 / -800 Weight last 48 hrs Weight 62.851 kg Weight 54.431 kg Physical Exam 2 Const: COMMON NORMALS: no acute distress ORIENTATION/CONSCIOUSNESS: Yes awake and Yes oriented to person; not oriented to place and not oriented to time Resp: COMMON NORMALS: normal respiratory effort, No retractions and No use of accessory muscles AUSCULTATION: crackles and wheezes Cardio: COMMON NORMALS: regular rate, regular rhythm, S1 normal heart sound present and S2 normal heart sound present RATE: regular rate RHYTHM: r egular rhythm HEART SOUNDS: S1 normal heart sound present and S2 normal heart sound present GI: COMMON NORMALS: Normal to inspection, nondistended, normoactive bowel sounds present and non-tender Extremity: COMMON NORMALS: no pedal edema Neuro: SENSORIUM/ORIENTATION: Yes oriented to person, No oriented to place and No oriented to time Urinary Catheter Management: [place]: Cath Placed During This Visit: yes Reason for Continuing Indwelling Catheter: Other Urinary Catheter Date of Insertion: 04/23/25 Urinary Catheter Time of Insertion: 18:00 Data 04/26/25 03:08 04/26/25 03:08 A&P Assessment and plan 1. Acute hypoxic respiratory failure: 2. Recurrent aspiration pneumonia: Plan: 1. Community acquired pneumonia: 2. Acute hypoxic respiratory failure: 3. Sepsis: 4. Recurrent aspiration pneumonia: 5. Acute encephalopathy: Plan: # Recurrent aspiration pneumonia # With acute hypoxic respiratory failure Plan - Aspiration precautions, dysphagia level 4 diet, extremely thickened -Patient's family declines feeding tube placement -Wants to proceed with medical management -For now family is thinking about hospice, but no decision has been made -Discussed with patient's parents for risk of recurrent aspiration, morbidity and mortality associated, rehospitalization as needed - BiPAP therapy - vancomycin - Meropenem - Aspiration precautions, speech therapy eval -plan to transition to oral abx # Sepsis w/o septic shock - Follow blood cultures-> negative # Macrocytic anemia h/h 9.4 today # Epilepsy Resume home blood pressure medications # Urinarly Retention bladder scan if no urine output, at times straight caths at home # Rheumatoid arthritis - Continue stress dose hydrocortisone Acute encephalopathy secondary to sepsis, respiratory failure, aspiration Dispo: DC soon, next 24 hours DNR/DNI Lovenox for today prophylaxis currently on hold given acute on chronic anemia, SCDs Plan-therapy, IV antibiotics, IV steroids monitor clinical status closely, prognosis poor, status stable, reached out to patient's guardian Fela Brian no family picked up PDMP PDMP Reviewed: Not Reviewed Attestations 2 Medical Necessity Statement*: continue O2, oxygen Coding Level of Care Code 71485 Diagnoses Acute hypoxic respiratory failure J96.01 Recurrent aspiration pneumonia J69.0
[2025-04-27] VITALS (11 sets, daily range): BP systolic 148–171; BP diastolic 77–86; PULSE 67–84; RESP 14–20; TEMP 36.5–36.8; O2SAT 94–99; BMI 26.7
[2025-04-27] MEDS: levETIRAcetam 2,000 MG/200 ML PREMIX 400 MG IV (04:09)
[2025-04-27] MEDS: sucralfate 1 gm/10 mL Oral Liq UDC PO (04:09)
[2025-04-27] MEDS: hydrocortisone 100 mg/2 mL SDV 50 MG IVP ×2 (05:01→10:45)
[2025-04-27] MEDS: linezolid premix 600 MG/300 ML PREMIX 300 MG IV (10:43)
[2025-04-27] MEDS: ondansetron 2 mg/ML SDV 2 mL 4 MG IVP (11:33)
[2025-04-27 11:48] LABS: Hematocrit 33.1 % (36-47); Hemoglobin 10.30 g/dL (11.27-16.99); Mean Corpuscular HGB Conc 31.1 g/dL (30-55); Mean Corpuscular Hemoglobin 32.6 pg (27-33); Mean Corpuscular Volume 104.7 fl (85-98); Nucleated Red Blood Cells % 0 %; Platelet Count 392 10^3/cmm (157-399); Red Blood Count 3.16 10^6/uL (3.85-5.65); White Blood Count 14.32 10^3/uL (3.29-11.43)
[2025-04-27 11:58] LABS: Alanine Aminotransferase 24 U/L (0-33); Albumin Level 2.8 g/dL (3.5-5.2); Alkaline Phosphatase 96 U/L (35-105); Anion Gap 12.2 (5-19); Aspartate Amino Transferase 21 U/L (0-32); Blood Urea Nitrogen 2 mg/dL (8-23); Calcium 7.8 mg/dL (8.5-10.5); Carbon Dioxide 25 mmol/L (22-29); Chloride 109 mmol/L (98-107); Creatinine Clr Calc Pharmacy 53.8963; Globulin 2.4 g/dL (1.3-4.6); Glucose 139 mg/dL (65-115); Osmolality Calculated 294 mOsm/kg (285-295); Potassium 3.2 mmol/L (3.5-5.1); Sodium 143 mmol/L (136-145); Total Protein 5.2 g/dL (6.6-8.7)
--- NOTE | 2025-04-27 13:42 | PM.DCS ---
Discharge Providers Date of Admission: 04/18/25 13:08 Date of Discharge: April 27, 2025 Attending Provider at Admission: Gildardo El Attending Provider at Discharge: Kartik Trejo MD Primary Care Provider: Marilyn Trivedi APN Diagnoses at Discharge Discharge Diagnosis 1. Acute hypoxic respiratory failure: 2. Recurrent aspiration pneumonia: Reason for Visit Reason for Visit: cough,stuffy Hospital Course Hospital Course 69-year-old female with history of TBI, epilepsy COPD presented with aspiration pneumonia. She was placed on empiric antibiotics. She was also treated for sepsis without shock. Cultures were ordered. Chronic conditions were managed. Including urinary retention. She was placed on a [place] briefly. Her symptoms improved. She was also on higher dose steroids. For her history of which arthritis. At time of discharge physician on oral antibiotics. Respiratory status improved. She was on 2 L. she was discharged in stable condition. Physical Exam Const: COMMON NORMALS: no acute distress ORIENTATION/CONSCIOUSNESS: Yes awake and Yes oriented to person; not oriented to place and not oriented to time Resp: COMMON NORMALS: normal respiratory effort, No retractions and No use of accessory muscles AUSCULTATION: crackles and wheezes Cardio: COMMON NORMALS: regular rate, regular rhythm, S1 normal heart sound present and S2 normal heart sound present RATE: regular rate RHYTHM: regular rhythm HEART SOUNDS: S1 normal heart sound present and S2 normal heart sound present GI: COMMON NORMALS: Normal to inspection, nondistended, normoactive bowel sounds present and non-tender Extremity: COMMON NORMALS: no pedal edema Neuro: SENSORIUM/ORIENTATION: Yes oriented to person, No oriented to place and No oriented to time Urinary Catheter Management: Vallecillo: Cath Placed During This Visit: yes Reason for Continuing Indwelling Catheter: Other Urinary Catheter Date of Insertion: 04/23/25 Urinary Catheter Time of Insertion: 18:00 Discharge Data Studies Completed and Pending Completed Studies During Hospitalization Category Date Time Status CXRP [XR chest 1V portable [id number]] Routine Exams 04/26/25 09:14 Completed CXRP [XR chest 1V portable [id number]] Stat Exams 04/18/25 21:18 Completed XR chest 1V portable [id number] Routine Exams 04/19/25 08:52 Completed XR chest 1V portable [id number] Stat Exams 04/18/25 10:51 Completed XR chest 1V portable [id number] Stat Exams 04/22/25 22:00 Completed Pending at discharge Category Date Time Status Complete Blood Count w/Auto AM LABS Lab 04/28/25 04:00 Ordered Comprehensive Metabolic Panel AM LABS Lab 04/28/25 04:00 Ordered Radiology Impressions Chest X-Ray 04/26/25 09:14 IMPRESSION: 1. Total white out of the LEFT pleural cavity. Differential considerations would include bronchial obstruction, large pleural effusion or pulmonary consolidation. Laboratory Results WBC 14.32 10^3/uL (3.29-11.43) H 04/27/25 11:21 RBC 3.16 10^6/uL (3.85-5.65) L 04/27/25 11:21 Hgb 10.30 g/dL (11.27-16.99) L 04/27/25 11:21 Hct 33.1 % (36-47) L 04/27/25 11:21 MCV 104.7 fl (85-98) H 04/27/25 11:21 MCH 32.6 pg (27-33) 04/27/25 11:21 MCHC 31.1 g/dL (30-55) 04/27/25 11:21 RDW 16.4 % (12.1-15.1) H 04/27/25 11:21 Plt Count 392 10^3/cmm (157-399) 04/27/25 11:21 MPV 9.0 fL (7.4-10.4) 04/27/25 11:21 Neut % (Auto) 78.2 % 04/27/25 11:21 Lymph % (Auto) 13.3 % 04/27/25 11:21 [place] % (Auto) 4.3 % 04/27/25 11:21 Eos % (Auto) 3.1 % 04/27/25 11:21 Baso % (Auto) 0.1 % 04/27/25 11:21 Neut # (Auto) 11.18 10^3/uL (1.8-7.7) H 04/27/25 11:21 Lymph # (Auto) 1.9 10^3/uL (0.8-4.8) 04/27/25 11:21 [place] # (Auto) 0.6 10^3/uL (0.2-0.9) 04/27/25 11:21 Eos # (Auto) 0.5 10^3/uL (0.0-0.8) 04/27/25 11:21 Baso # (Auto) 0.0 10^3/uL (0.0-0.1) 04/27/25 11:21 Nucleated RBC % (auto) 0 % 04/27/25 11:21 Nucleated RBCs # 0.0 /100WBC 04/27/25 11:21 Specimen Type Arterial 04/19/25 10:05 Sample Site Brachial, left 04/19/25 10:05 ABG pH 7.37 (7.35-7.45) 04/19/25 10:05 ABG pCO2 39.3 mmHg (35-45) 04/19/25 10:05 ABG pO2 129.0 mmHg (80.0-100.0) H 04/19/25 10:05 ABG PO2/FiO2 Ratio 258 04/19/25 10:05 ABG HCO3 22.8 mmol/L (22-26) 04/19/25 10:05 ABG Base Excess -2.3 mmol/L (-2.0-2.0) L 04/19/25 10:05 Gustavo Test N/a 04/19/25 10:05 Hematocrit 28.9 % (37-47) L 04/19/25 10:05 O2 Delivery Device Bipap 04/19/25 10:05 FiO2 50.0 % 04/19/25 10:05 Health Underwriter ID glc 04/19/25 10:05 Sodium 143 mmol/L (136-145) 04/27/25 11:21 Potassium 3.2 mmol/L (3.5-5.1) L 04/27/25 11:21 Chloride 109 mmol/L (98-107) H 04/27/25 11:21 Carbon Dioxide 25 mmol/L (22-29) 04/27/25 11:21 Anion Gap 12.2 (5-19) 04/27/25 11:21 BUN 2 mg/dL (8-23) L 04/27/25 11:21 Creatinine 0.4 mg/dL (0.5-0.9) L 04/27/25 11:21 GFR Calculation 157.8 mL/min (90-130) H 04/27/25 11:21 Glucose 139 mg/dL (65-115) H 04/27/25 11:21 Calculated Osmolality 294 mOsm/kg (285-295) 04/27/25 11:21 Lactic Acid 0.7 mmol/L (0.5-2.2) 04/19/25 09:30 Lactic Acid (Sepsis) 1.9 mmol/L (0.5-2.2) 04/18/25 14:26 Lactate 1.7 mmol/L (0.5-2.2) 04/20/25 05:59 Calcium 7.8 mg/dL (8.5-10.5) L 04/27/25 11:21 Magnesium 2.0 mg/dL (1.7-2.3) 04/22/25 04:27 Iron 15 ug/dL (37-145) L 04/19/25 03:41 Ferritin 354 ng/mL (15-150) H 04/19/25 03:41 Total Bilirubin 0.2 mg/dL (0.15-1.2) 04/27/25 11:21 AST 21 U/L (0-32) 04/27/25 11:21 ALT 24 U/L (0-33) 04/27/25 11:21 Alkaline Phosphatase 96 U/L (35-105) 04/27/25 11:21 Troponin T Baseline 19 ng/L (0-10) H 04/19/25 09:30 Troponin T 120 Minute 16.63 ng/L (0-10) H 04/19/25 12:44 Delta Troponin T -2.37 ABS# (0-10) L 04/19/25 12:44 Troponin T Hi Sens 6Hr 16.23 ng/L (0-10) H 04/19/25 15:20 Troponin T Hi Sens 6Hr Delta -2.77 ng/L (0-12) L 04/19/25 15:20 C-Reactive Protein 165.4 mg/L (0.0-4.9) H 04/20/25 05:59 NT-Pro-B Natriuret Pep 1887 pg/mL (0-125) H 04/19/25 03:41 Total Protein 5.2 g/dL (6.6-8.7) L 04/27/25 11:21 Albumin 2.8 g/dL (3.5-5.2) L 04/27/25 11:21 Globulin 2.4 g/dL (1.3-4.6) 04/27/25 11:21 Procalcitonin 0.94 ng/mL (0-0.5) H 04/20/25 05:59 Urine Color Dark yellow (Yellow) A 04/22/25 05:30 Urine Appearance Clear (CLEAR) 04/22/25 05:30 Urine pH 6.5 (5-7) 04/22/25 05:30 Ur Specific Nemo 1.028 (1.005-1.030) 04/22/25 05:30 Urine Protein 1+ (Negative) A 04/22/25 05:30 Urine Glucose (UA) Negative (Normal) 04/22/25 05:30 Urine Ketones Trace (Negative) 04/22/25 05:30 Urine Blood Negative (Negative) 04/22/25 05:30 Urine Nitrate Negative (Negative) 04/22/25 05:30 Urine Bilirubin 1+ (Negative) H 04/22/25 05:30 Urine Urobilinogen 1.0 mg/dL (Negative) 04/22/25 05:30 Ur Leukocyte Esterase Negative (Negative) 04/22/25 05:30 Urine RBC 0-2 /hpf (0-2) 04/22/25 05:30 Urine WBC 0-5 /hpf (0-5) 04/22/25 05:30 Ur Squamous Epith Cells 0-5 /hpf (0-5) 04/22/25 05:30 Amorphous Sediment Not Reportable 04/22/25 05:30 Urine Bacteria None seen /hpf (NONE) 04/22/25 05:30 Hyaline Casts 1.21 /lpf 04/22/25 05:30 Nasal MRSA (PCR) Not detected (Not Detecte) 04/18/25 16:55 Phenytoin 17.9 ug/mL (10-20) 04/18/25 11:39 Adenovirus (PCR) Not detected (NOT DETECT) 04/18/25 16:55 C. pneumoniae DNA (PCR) Not detected (NOT DETECT) 04/18/25 16:55 Coronavirus 229E (PCR) Not detected (NOT DETECT) 04/18/25 16:55 Human Metapneumovir PCR Not detected (NOT DETECT) 04/18/25 16:55 Influenza A (H1) PCR Not detected (NOT DETECT) 04/18/25 16:55 Influenza A (PCR) Negative (Negative) 04/18/25 11:05 Influ A (H1/09) PCR Not detected (NOT DETECT) 04/18/25 16:55 Influenza A (H3) PCR Not detected (NOT DETECT) 04/18/25 16:55 Influenza Type A (PCR) Not detected (NOT DETECT) 04/18/25 16:55 Influenza Type B (PCR) Not detected (NOT DETECT) 04/18/25 16:55 M. pneumoniae (PCR) Not detected (NOT DETECT) 04/18/25 16:55 Parainfluenza 1 (PCR) Not detected (NOT DETECT) 04/18/25 16:55 Parainfluenza 2 (PCR) Not detected (NOT DETECT) 04/18/25 16:55 Parainfluenza 3 (PCR) Not detected (NOT DETECT) 04/18/25 16:55 Parainfluenza 4 (PCR) Not detected (NOT DETECT) 04/18/25 16:55 RSV (PCR) Negative (Negative) 04/18/25 11:05 RSV Type A (PCR) Not detected (NOT DETECT) 04/18/25 16:55 RSV Type B (PCR) Not detected (NOT DETECT) 04/18/25 16:55 Entero/Rhino (PCR) Not detected (NOT DETECT) 04/18/25 16:55 SARS-CoV-2 (PCR) Not detected (NOT DETECT) 04/18/25 16:55 Blood Type O Positive 04/21/25 08:35 Rho(D) Type Rh positive 04/21/25 08:35 Antibody Screen Negative 04/21/25 08:35 Crossmatch See Detail 04/21/25 08:35 Vitals Last Vital Signs Temp 97.9 F 04/27/25 13:40 Pulse 67 04/27/25 13:40 Resp 14 04/27/25 13:40 BP 148/86 04/27/25 13:40 Pulse Ox 94 04/27/25 13:40 O2 Del Method Nasal Cannula 04/27/25 13:14 O2 Flow Rate 2 04/27/25 13:14 FiO2 40 04/26/25 20:45 Discharge Plan Discharge Patient Disposition: Home Condition: Stable Prescriptions: New benzonatate 100 mg Capsule 100 mg PO TID PRN (Reason: Cough) Qty: 30 0RF clindamycin HCl [Cleocin HCl] 300 mg capsule 300 mg PO Q6H 5 Days Qty: 20 0RF Continued folic acid 1 mg tablet 1 mg PO DAILY@08 montelukast [Singulair] 10 mg tablet 10 mg PO DAILY@08 multivitamin Tablet 1 tab PO DAILY@08 pantoprazole [Protonix] 40 mg tablet,delayed release (DR/EC) 40 mg PO DAILY@08 zonisamide [Zonegran] 100 mg capsule 600 mg PO DAILY phenazopyridine [Azo Urinary Pain Relief] 95 mg tablet 190 mg PO BID PRN (Reason: Bladder Spasms) simethicone [Gas-X Extra Strength] 125 mg capsule 125 mg PO Q8H PRN (Reason: Stomach Upset) tamsulosin [Flomax] 0.4 mg capsule 0.4 mg PO BID sucralfate 100 mg/mL suspension 10 ml PO BID prednisone 5 mg tablet 5 mg PO QAM loperamide [Anti-Diarrheal (loperamide)] 2 mg tablet 2 mg PO QID PRN (Reason: Diarrhea) buspirone 10 mg tablet 10 mg PO TID budesonide-formoterol 80-4.5 mcg/actuation HFA aerosol inhaler 2 puff INHALATION BID lacosamide [Vimpat] 150 mg tablet 150 mg PO BID albuterol sulfate 5 mg/mL solution for nebulization 5 mg inhalation TID PRN (Reason: shortness of breath or wheezing) Qty: 600 0RF acetaminophen 325 mg tablet 650 mg PO Q6H PRN (Reason: pain or elevated temp) promethazine-DM 6.25-15 mg/5 mL syrup 5 ml PO Q4H PRN (Reason: evening cough) triamcinolone acetonide 0.1 % cream 1 applic TOPICAL BID PRN (Reason: rash or itching) cyanocobalamin (vitamin B-12) 1,000 mcg/mL solution 1,000 mcg IM Q30D levetiracetam [Keppra] 500 mg tablet 2,000 mg PO BID vitamin B complex Tablet 1 tab PO .DAILY@12PM polyethylene glycol 3350 [Miralax] 17 gram Powder In Packet 17 g PO EVERY OTHER DAY fluoxetine 20 mg Tablet 20 mg PO DAILY@12 Rx Instructions: along with 10mg to=30 mg total Acidophilus Tablet,Chewable 1 tab PO DAILY@08 albuterol sulfate 90 mcg/actuation Hfa Aerosol Inhaler 2 puff INHALATION QID PRN (Reason: Shortness Of Breath) Nutritional Drink Liquid 1 ea PO TID@09,13,19 diclofenac sodium 1 % Gel 4 g TOPICAL QID PRN (Reason: Pain/arthritis) famotidine 20 mg tablet 20 mg PO BID Systane (propylene glycol) 0.4-0.3 % Drops 1 drp ophthalmic (eye) TID Rx Instructions: both eyes fluoxetine 10 mg capsule 10 mg PO DAILY@12 Rx Instructions: along with 20mg to=30 mg total phenytoin [Dilantin Infatabs] 50 mg tablet,chewable 50 mg PO TID@08,14,20 diazepam 5-7.5-10 mg kit 10 mg [place] Q4H PRN (Reason: seizure activity) Qty: 1 0RF fluticasone propionate 50 mcg/actuation spray,suspension 1 spray INTRANASAL DAILY mupirocin 2 % Ointment 1 applic TOPICAL BID guaifenesin [Mucus Relief ER] 600 mg tablet extended release 12hr 5 mg PO PRN PRN (Reason: Cough) Discharge Order = DC NOW: Discharge Order (Routine); Ordered 04/27/25 Ordered By: Kartik Trejo Referrals: Trivedi,Marilyn, 2ND GRADE TEACHER [Primary Care Provider, Nurse Practitioner] - 04/30/25 10:00 am Discharge Diet: As Directed Discharge Activity: Resume usual activity Patient Instructions: Benzonatate (By mouth) (Ryne Langford), Clindamycin (By mouth), Opioid Safety, Pneumonia Stoplight, Patient Portal & Leno Instructions Activity Restrictions/Additional Instructions: Aspiration precautions, dysphagia level 4 diet, extremely thickened Discharge Attestations Time Spent in Discharge Care*: greater than 30 min Quality Metrics Clinical Quality Measures [ No reported AMI, CVA or VTE this stay] Coding Level of Care Code Acute Code for g Fwd Diagnoses Acute hypoxic respiratory failure J96.01 Recurrent aspiration pneumonia J69.0
== END 2025-04-27 15:04 | disposition home or self-care (01) | DRG 871 ==
LOC: ER 12:49 → MEDSURG 15:06
PROVIDERS: Emergency Medicine; Family Medicine; Nurse Practitioner Gerontology; Admitting Provider Internal Medicine; Emergency Provider Physician Assistant; PCP Nurse Practitioner Family; Visit Provider Internal Medicine
DX: A41.9 Sepsis, unspecified organism (principal); J18.9 Pneumonia, unspecified organism; J69.0 Pneumonitis due to inhalation of food and vomit; J96.01 Acute respiratory failure with hypoxia; J44.0 Chronic obstructive pulmonary disease with (acute) lower respiratory infection; G93.40 Encephalopathy, unspecified; Z87.820 Personal history of traumatic brain injury; G40.409 Other generalized epilepsy and epileptic syndromes, not intractable, without status epilepticus; Z87.891 Personal history of nicotine dependence; D53.9 Nutritional anemia, unspecified; R33.9 Retention of urine, unspecified; M06.9 Rheumatoid arthritis, unspecified; Z79.51 Long term (current) use of inhaled steroids; Z96.0 Presence of urogenital implants; F79 Unspecified intellectual disabilities; Z99.81 Dependence on supplemental oxygen; Z66 Do not resuscitate
CPT/HCPCS: 36415; 36430; 36600; 51702; 51798; 71045; 80048; 80053; 80185; 81001; 82728; 82803; 83540; 83605; 83735; 83880; 84145; 84484; 85014; 85018; 85025; 86140; 86850; 86900; 86920; 87040; 87449; 87486; 87581; 87633; 87637; 92507; 92523; 92526; 92610; 93005; 94640; 94660; 94664; 96365; 96367; 96375; 99285; A4222; J0456; J0696; J1165; J1720; J1938; J1953; J2020; J2185; J2405; J3480; J7030; J7040; J7050; J7512; J7611; J9999; P9016

== ENCOUNTER 2025-05-02 09:08 | Emergency (ER) | payer MEDICARE, MEDICAID, SELFPAY ==
--- OUTSIDE RECORDS SUMMARY | 2025-04-27 05:05 | XMS_ITS ---
Author Organization [facility] Address [address] [place] [address] Care Team Providers Care Tube Machine Operator Name Role Phone Nuris Trivedi Primary Care Provider NURIS TRIVEDI Unavailable Unavailable Encounters Encounter Location Date Provider Diagnosis [address] [id number] 04/27/2025 [facility] Plan Of Treatment No Information History and Physical Notes * HPI (History of Present Illness) Category Sub-Category Detail Notes Category Not es Interim History *Hospital Transition of care (inpatient/overnight stay) Date of admission to hospital:: 04/18/2025 Reason for admission:: Sepsis syndrome, Other (See Notes) Pneumonia Was this a readmission?: No Date of discharge from hospital:: 2024 Discharging Facility:: [facility] First Attempt at Contact:: Ira zhu spoke with patient, family, or caregiver Date of First Attempt:: 04/27/2025 Discharge medications review ed and reconciled from hospital:: Medications to be reconciled with Health Care Provider at Follow Up Visit Does this patient meet any r isk criteria for potential readmission within 30-90 days? (_select all that apply): Length of stay 4 days or more, Admission triggered from Emergency Department, Multiple Chronic Conditions Date of receipt of hospital admission re port:: 04/27/2025 Date of receipt of hospital discharge estrada mmary:: 04/27/2025 Progress Notes * LESLEE MELENDEZDOB:1955 (69 yo F)Acc No.[id number]:04/27/2025 Patient: LESLEE DIAZ :1955 A ge:69 Y S ex:Female [address] [place] [address] Subjective: * Chief Complaints: * HPI: I nterim History: *Hospital Transition of care (inpatient/overnight stay) D ate of admission to hospital: 1 06/18/2024 R adam for admission: S epsis syndrome, Other (See Notes) Pneumonia W as this a readmission? N o D ate of discharge from hospital: 1 06/28/2024 D ischarging Facility: [facility] irst Attempt at Contact: S marko spoke with patient, family, or caregiver D ate of First Attempt: 1 06/28/2024 D ischarge medications reviewed and reconciled from hospital: M edications to be reconciled with Health Care Provider at Follow Up Visit D oes this patient meet any risk criteria for potential readmission within 30-90 days? (_select all that apply) L ength of stay 4 days or more, Admission triggered from Emergency Department, Multiple Chronic Conditions D ate of receipt of hospital admission report:?04/27/2025 D ate of receipt of hospital discharge summary: 1 06/28/2024 * true * Date: Generated for Petey frederick/Willis/eTransmitting on: 07/03/2024 09:17 AM SPECIAL EDUCATION INSTRUCTOR
--- OUTSIDE RECORDS SUMMARY | 2025-04-30 04:00 | XMS_ITS ---
Author Organization [facility] Address [address] [place] [address] [place] [address] Care Team Providers Care Tire Changer Name Role Phone Trivedi [facility] Primary Care Provider [phone] TRIVED[place], [place] Unavailable Unavailable Allergies Allergen (clinical drug ingredient) Drug/Non Drug Allergy documented on EMR Reaction Allergy Type Onset Date Status levofloxacin levoFLOXacin rash Drug Allergy A ctive vancomycin Vancomycin HCl rash Drug Allergy A ctive Influenza A (H1N1) Monoval Vac Unknown Drug Allergy Active aspirin Aspirin Unknown Drug Allergy Active Results Component Value Reference Range Flag Notes Comprehensive Metabolic Pane l (CMP) 38143 (Not yet reviewed by provider) Interpretation: Performing Lab: Notes/Report: Diagnosis Description: Other terminologist (current) drug therapy Glucose Serum 120 71-110 MG/DL HI Testing p erformed at [facility], [address] [place] [address] [place] [address]. CLIA ID#: [id number] BUN 6 7-21 MG/DL LOW Creat .59 .51-1.17 MG/DL Y-oylaka-k-benzoquinone imine (NAPQI) is a metabolite of acetaminophen, NAPQI concentrations of apparoximately 10 mg/L correlation to toxic levels of acetaminophen demonstrates a greater than or equil to 10% change in results. NAPQI concentrations greater than this may lead to falsely depressed results for patient samples. Use of this assay is not recommended for patients undergoing treatment with phenindione, due to the potential for falsely depressed results. GFR 96.7 NA Calculation pe rformed from GFR calculator provided by the [employer]. Glomerular Filtration rate(GRF) is the best overall index of kidney function. Normal GFR varies according to age,sex, body size, and declines with age. The [employer] recommends using the CKD-EPI Creatinine Equation(202) to estimate GFR. BUN/Creat Ratio 10.2 12.0-20.0 % LOW Total Protein 6.1 5.8-8.0 G/DL Albumin 3.3 3.2-4.8 G/DL Globulin 2.8 2.3-3.5 G/DL Alb/Glob 1.2 0.8-2.2 Calcium 8.6 8.7-10.4 MG/DL LOW Sodium 146 136-145 MMOL/L HI Potassium 3.7 3.5-5.1 MMOL/L Chloride 105 98-107 MMOL/L CO2 27.2 20.0-31.0 MMOL/L Anion Gap 18 5-15 HI Alk Phos 128 46-116 HI Bili Total .4 .3-1.2 MG/DL Use of this assay is not recommended for patients undergoing treatment with eltrombopag due to the potential for falsely elevated results. AST/SGOT 26 15-37 UNIT/L ALT/SGPT 33 12-78 UNIT/L Osmo Serum,Calculated 301 280-300 MOSM/KG HI CBC w\ Auto Diff 18176 (Not yet reviewed by provider) Interpretation: Performing Lab: Notes/Report: Diagnosis Description: Other terminologist (current) drug therapy WBC 13.2 4.5-11.0 X10'3 HI RBC 3.67 4.00-5.20 X10'6 LOW Hgb 11.9 12.0-16.0 G/DL LOW Hct 39.1 36.0-46.0 % MCV 106.5 80.0-100.0 FL HI MCH 32.4 27.0-31.0 PG HI MCHC 30.4 31.0-37.0 G/DL LOW Platelet 405 150-400 X10'3 HI RDW-SD 64.3 35.0-49.0 FL HI RDW-CV 16.4 12.2-15.6 % HI MPV 9.9 9.2-12.0 FL Neutro Auto% 78.8 40.0-70.0 % HI Lymph Auto% 10.8 22.0-44.0 % LOW Collier Auto% 7.0 3.0-7.0 % Eos Auto% 2.2 2.0-4.0 % Baso Auto% 0.4 0.0-1.0 % Imm Gran% .8 .0-.4 % HI Neutro Abs 10.42 .80-7.70 HI Absolute Neutrophil Count 31066 NA Lymph Abs 1.43 .10-4.10 Collier Abs .92 .20-1.00 Eos Abs .29 .00-.40 Baso Abs .05 .00-.20 Imm Gran Abs .11 .00-.10 HI NRBC# .00 .00-.20 X10'3 NRBC% .00 .00-.20 /100 int act WBC's REASON FOR VISIT Patient to clinic via wheelchair with home health aide for hospitalization follow up., Venipuncture, Venipuncture Medications Medication SIG (Take, Route, Frequency, Duration) Notes Start Date End Date Status Clotrimazole-Betamethason e 1-0.05 % Cream 1 application Externally Twice a day; Duration: 30 days 04/30/2025 07/29/2025 Active Fluticasone Propionate 50 MCG/ACT Suspension use one spray into each nostril every day (shake well).; Duration: 30 Active Diflucan 150 MG Tablet 1 tablet po q day Orally; Duration: 3 days 04/30/2025 05/06/2025 Active Benzonatate 100 MG Capsule 1 capsule as needed Orally Three times a day; Duration: 30 days 04/15/2025 05/15/2025 Active Systane Ultra 0.4-0.3 % Solution instill one drop in each eye three times daily.(for dry eyes); Duration: 30 Active Cyanocobalamin 1000 MCG/ML Solution INJECT 1ML INTRAMUSCULARLY MONTHLY; Duration: 90 Active Vimpat 150 mg Tablet TAKE ONE TABLET BY MOUTH TWICE DAILY; Duration: 12 04/02/2025 Active FLUoxetine HCl 20 mg Capsule TAKE ONE CAPSULE BY MOUTH EVERY DAY AT NOON FOR mood/anxiety; Duration: 30 Active Polyethylene Glycol 3350 17 GM/SCOOP Powder MIX ONE SCOOP WITH EIGHT OUNCES of FLUID DIRECTED AND drink BY MOUTH every other DAY FOR 30 DAYS; Duration: 30 Active Phenazopyridine HCl 100 mg Tablet TAKE TWO TABLETS BY MOUTH TWICE DAILY FOR URINARY RETENTION FOR 30 DAYS; Duration: 30 Active Diclofenac Sodium 1 % Gel apply FOUR gra ms of gel FOUR TIMES DAILY TO affected joint NEEDED; Duration: 10 Active FT Mucus Relief 12HR 600 mg Tablet Extended Release 12 Hour TAKE ONE TABLET BY MOUTH TWICE DAILY FOR 30 DAYS; Duration: 30 Active Sucralfate 1 GM/10ML Suspension TAKE 10ML BY MOUTH ON AN EMPTY STOMACH TWICE DAILY. (REPLACES SUCRALFATE TABS) FOR stomach; Duration: 30 Active Maxitrol 3.5-65556-3.1 Ointment 1 application into the lower eyelid of affected eye Ophthalmic Three times a day; Duration: 7 days 11/16/2024 Active Triamcinolone Acetonide 0.1 % Cream APPLY TO THE AFFECTED AREA(S) NEEDED TO RASH.; Duration: 10 Active FLUoxetine HCl 10 mg Capsule TAKE ONE CAPSULE BY MOUTH ONCE A DAY AT NOON (IN ADDITION TO 20 MG) FOR 30 DAYS. (FOR depression); Duration: 30 Active Folic Acid 1 mg Tablet TAKE ONE TABLET B Y MOUTH EVERY DAY FOR folic acid deficiency; Duration: 30 Active Famotidine 20 mg Tablet TAKE ONE TABLET BY MOUTH TWICE DAILY FOR stomach; Duration: 30 Active Daily-Len Multivitamin - Tablet TAKE ONE TABLET BY MOUTH EVERY DAY (100 DAYS); Duration: 100 Active predniSONE 5 mg Tablet TAKE ONE TABLET B Y MOUTH EVERY DAY FOR arthritis; Duration: 30 Active Acetaminophen 325 mg Tablet TAKE TWO TABLETS BY MOUTH EVERY 6 HOURS NEEDED FOR PAIN OR FEVER >100; Duration: 30 Active Montelukast Sodium 10 mg Tablet TAKE ONE TABLET BY MOUTH EVERY DAY; Duration: 30 Active Nitrofurantoin Macrocrystal 100 mg Capsule TAKE ONE CAPSULE BY MOUTH EVERY DAY FOR 30 DAYS FOR UTI SYMPTOMS; Duration: 30 Active Mupirocin 2 % Ointment APPLY EXTERNALLY TWICE DAILY TO WOUND UNTIL CLEAR; Duration: 30 Active Vitamin B Complex - Tablet as directed Orally once a day; Duration: 30 days Active Budesonide-Formoterol Fumarate 80-4.5 MCG/ACT Aerosol INHALE TWO PUFFS BY MOUTH TWICE DAILY FOR 30 DAYS.; Duration: 30 Active Tamsulosin HCl 0.4 mg Capsule TAKE ONE CAPSULE BY MOUTH EVERY MORNING AND EVERY EVENING. FOR BLADDER; Duration: 60 Active Pantoprazole Sodium 40 mg Tablet Delayed Release TAKE ONE TABLET BY MOUTH EVERY DAY FOR STOMACH.; Duration: 30 Active Ondansetron HCl 4 mg Tablet TAKE ONE TABLET BY MOUTH EVERY 4 HOURS NEEDED FOR NAUSEA AND FOR VOMITING; Duration: 3 Active Zonegran 100 mg Capsule TAKE ONE CAPSULE BY MOUTH TWICE DAILY FOR seizures.; Duration: 30 Active SM Tussin DM Max 20-400 MG/20ML Liquid TAKE TWO TEASPOONFULS BY MOUTH TWICE DAILY NEEDED FOR DAYTIME COUGH.; Duration: 15 Active Anti-Diarrheal 2 mg Tablet TAKE ONE TABLET BY MOUTH FOUR TIMES DAILY NEEDED FOR DIARRHEA FOR 30 DAYS; Duration: 30 Active Promethazine-DM 6.25-15 MG/5ML Syrup take 5mL BY MOUTH EVERY 4 HOURS NEEDED FOR evening cough FOR 30 DAYS; Duration: 30 Active Acidophilus Probiotic 0.5 MG Tablet TAKE DIRECTED ONCE DAILY; Duration: 90 Active Dilantin Infatabs 50 mg Tablet Chewable TAKE ONE TABLET BY MOUTH THREE TIMES DAILY; Duration: 30 Active levETIRAcetam 500 mg Tablet TAKE TWO TABLETS BY MOUTH EVERY TWELVE HOURS FOR seizures FOR 30 DAYS; Duration: 30 Active Cefdinir 300 MG Capsule Oral; Duration: 14 Days Active diazePAM 10 MG Gel INSERT 5MG RECTALLY FOR SEIZURE LASTING MORE THAN 10 MINUTES; MAY REPEAT NEEDED DIRECTED.; Duration: 1 06/08/2024 Active Thick-It - Powder USES DIRECTED.; Duration: 30 Active busPIRone HCl 10 mg Tablet TAKE ONE TABLET BY MOUTH THREE TIMES DAILY FOR ANXIETY FOR 30 DAYS; Duration: 30 Active clonazePAM 0.25 MG Tablet Disintegrating TAKE ONE TABLET BY MOUTH TWICE DAILY FOR SEIZURES Oral; Duration: 30 Days Active Ventolin HFA 108 (90 Base) MCG/ACT Aerosol Solution INHALE TWO PUFFS with spacer BY MOUTH FOUR TIMES DAILY NEEDED SHAKE WELL 4 times a day prn; Duration: 25 days spacer Active Clotrimazole 1 % Cream apply externally TWICE DAILY NEEDED FOR rash; Duration: 30 Active Gas Relief Extra Strength 125 mg Capsule TAKE ONE CAPSULE BY MOUTH EVERY 8 HOURS NEEDED FOR GASTRITIS OR STOMACH; Duration: 10 Active Fluticasone Propionate HFA 220 MCG/ACT Aerosol INHALE 1 PUFF BY MOUTH TWICE DAILY (shake WELL). FOR breathing/asthma; Duration: 30 Active Social History Tobacco Use: Social History Observation Description Date Details (start date - stop date) Never Smoker NA - NA Social History Tobacco Use: Social Info Question Answer Notes Tobacco Control (Standard) Tobacco use: Nonsmoker Section Notes: Depression screen completed 02/10/2024 score 4, PHQ9 01/11/2025, PHQ9 02/16/2025 Vital Signs Temperature 97.0 degrees Fahrenheit 12/05/20 25 Blood pressure systolic 130 mm Hg 04/30/20 25 Blood pressure diastolic 76 mm Hg 025 Heart Rate 88 /min 04/30/2025 Respiratory Rate 18 /min 04/30/2025 Height 57 in 04/30/2025 Weight 121 lbs 04/30/2025 BMI 26.18 kg/m2 04/30/2025 Oximetry 94 % 04/30/2025 Height-cm 144.78 cm 04/30/2025 Weight-kg 54.89 kg 04/30/2025 Encounters Encounter Location Date Provider Diagnosis [facility] Office [address] [id number] 04/30/2025 Marilyn Trivedi Rash R21 ; Candidias is B37.9 ; Hospital discharge follow-up Z51.89 ; B12 deficiency E53.8 ; Seizure disorder G40.909 ; Rheumatoid arthritis involving multiple sites with positive rheumatoid factor M05.79 and Drug therapy continued Z79.899 Assessments Encounter Date Diagnosis (ICD Code) Assessment Notes Treatment Notes Treatment Clinical Notes Section Notes 04/30/2025 Rash (ICD-10 - R21) lotrisone 04/30/2025 Candidiasis (ICD-10 - B37.9) diflucan 04/30/2025 Hospital discharge follow-up (ICD-10 - Z51.89) 04/30/2025 B12 deficiency (ICD-10 - E53.8) b12 1000 mcg im 04/30/2025 Seizure disorder (ICD-10 - G40.909) continue meds 04/30/2025 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) depomedrol/deca dron im 04/30/2025 Drug therapy continued (ICD-10 - Z79.899) cbc cmp 04/30/2025 Other Questions asked and answered; discharged to home. Venipuncture: Performed by: Adrianna PEREZ Attempts: x1 Location:[facility] Needle gauge: 21g Patient tolerated well. Plan Of Treatment Medication Medication Name Sig Start Date Stop Date Notes Clotrimazole-Betamethasone 1-0.05 % Cream 1 application Externally Twice a day; Duration: 30 days 04/30/2025 07/29/2025 Diflucan 150 MG Tablet 1 tablet po q day Orally; Duration: 3 days 04/30/2025 05/06/2025 Treatment Notes Assessment Notes Rash lotrisone Candidiasis diflucan B12 deficiency b12 1000 mcg im Seizure disorder continue meds Rheumatoid arthritis involvi ng multiple sites with positive rheumatoid factor depomedrol/decadron im Drug therapy continued cbc cmp Other Questions asked and answered; discharged to home. Pending Test Test Name Order Date CBC w\ Auto Diff [id number] 04/30/2025 Comprehensive Metabolic Panel (CMP) 8005 3 04/30/2025 Next Appt Details Follow Up: 4 Weeks, Reason: recheck Medications Administered Medication Instructions Date of Administration Dosage Notes dexAMETHasone 04/30/[address] [facility] [id number] 423-00 pt tolerated well/instructed to wait 20 min DEPO-Medrol 04/30/[address] [facility] [id number] 3-01 pt tolerated well/instructed to wait 20 min Cyanocobalamin 04/30/2025 1000 ug supplied b y pharm/pt tolerated well/instructed to wait 20 min History and Physical Notes * HPI (History of Present Illness) Category Sub-Category Detail Notes Category Not es Interim History *Hospital Transition of care (inpatient/overnight stay) Date of admission to hospital:: 04/18/2025 patient is an alert 69 year old female hospital discharge follow up rash left wrist as well as left forearm refill lotrisone; diflucan tabs cont clindamycin 300 mg qid ok change eye oint to prn; cleared labs cbc cmp adhesive topical reaction noted where hospital placed iv as well as her id arm band try to avoid tape to skin make boost prn status; patient states does not want daily will draw labs cbc cmp rheumatoid arthritis b12 deff will administer depomedrol/decadron im recheck 4 weeks and prn Reason for admission:: Sepsis syndrome, Other (See Notes) Pneumonia Was this a readmission?: No Date of discharge from hospital:: 2024 Discharging Facility:: [facility] First Attempt at Contact:: Ira zhu spoke [...] receipt of hospital discharge estrada mmary:: 04/27/2025 Provider Note patient is an alert 69 year old female known to practice and here per wheelchair with caregivers here for recheck and medications hospital discharge follow up; admit for pneumonia reviewed meds and treatments and diagnoses brusing right forearm post hospital lab/iv sticks rash left wrist as well as left forearm refill lotrisone; diflucan tabs x 3 days cont clindamycin 300 mg qid from hospital discharge ok change eye oint to prn; cleared labs cbc cmp this visit adhesive topical reaction noted where hospital placed iv as well as her id arm band try to avoid tape to skin also some discoloration mid and low back; appears like heat pad post area; caregivers state they never saw heat pad in hospital; waw laying on plastic type mattress cover in that area while in hosp make boost prn status; patient states does not want daily will draw labs cbc cmp terminologist meds seizure disorder; conitnue meds patient frequently refuses boost; patient prefers prn; order changed eye drainage resolved; change to prn rheumatoid arthritis b12 deff will administer depomedrol/decadron im recheck 4 weeks and prn Examination Category Sub-Category Detail Notes Category Not es General Examination GENERAL APPEARANCE: very sharath rt and cheerful; well hydrated, in no distress, converses fairly well HEAD: normocephalic EYES: PERRL; NECK/THYROID: no cervical lymphade nopathy , no jugular venous distention HEART: Regular rate and rhy thm, S1 S2 normal LUNGS: clear to auscultatio n bilaterally, no wheezes, rales, or rhonchi NEUROLOGIC: in wheelchair alert; SKIN: warm and dry mid low back with darkened red discoloration ; no open area left wrist with rash in shape/pattern of arm bands left forearm rash; in pattern of iv tape right forearm bruising; no open area EXTREMITIES: bilateral hands with marked deformity noted proximal phalanges ; increased deformity some contractures hands and ankles as is patient normal marked deformity fingers left hand; acquired; PSYCH: cooperative with denae brar , , alert, oriented Progress Notes * LESLEE MELENDEZB:1955 (69 yo F)Acc No.[id number]:04/30/2025 Patient: LESLEE DIAZ Provider: Radha Trivedi APRN :1955 A ge:69 Y S ex:Female Date:04/30/2025 Address:[address] [place], [place] [id number] Check In:09:56 AM CSTCheck O ut:11:12 AM [place] [place] Subjective: * Chief Complaints: * P atient to clinic via wheelchair with home health aide for hospitalization follow up. VenipunctureVenipuncture * HPI: I nterim History: *Hospital Transition of care (inpatient/overnight stay) D ate of admission to hospital: 1 06/18/2024 R adam for admission: S epsis syndrome, Other (See Notes) Pneumonia W as this a readmission? N o D ate of discharge from hospital: 1 06/28/2024 D ischarging Facility: [facility] irst Attempt at Contact: S marko [...] receipt of hospital discharge summary: 1 06/28/2024 patient is an alert 69 year old female hospital discharge follow up rash left wrist as well as left forearm refill lotrisone; diflucan tabs cont clindamycin 300 mg qid ok change eye oint to prn; cleared labs cbc cmp adhesive topical reaction noted where hospital placed iv as well as her id arm band try to avoid tape to skin make boost prn status; patient states does not want daily will draw labs cbc cmp rheumatoid arthritis b12 deff will administer depomedrol/decadron im recheck 4 weeks and prn. Arnel delatorre Note: patient is an alert 69 year old female known to practice and here per wheelchair with caregivers here for recheck and medications hospital discharge follow up; admit for pneumonia reviewed meds and treatments and diagnoses brusing right forearm post hospital lab/iv sticks rash left wrist as well as left forearm refill lotrisone; diflucan tabs x 3 days cont clindamycin 300 mg qid from hospital discharge ok change eye oint to prn; cleared labs cbc cmp this visit adhesive topical reaction noted where hospital placed iv as well as her id arm band try to avoid tape to skin also some discoloration mid and low back; appears like heat pad post area; caregivers state they never saw heat pad in hospital; waw laying on plastic type mattress cover in that area while in hosp make boost prn status; patient states does not want daily will draw labs cbc cmp terminologist meds seizure disorder; conitnue meds patient frequently refuses boost; patient prefers prn; order changed eye drainage resolved; change to prn rheumatoid arthritis b12 deff will administer depomedrol/decadron im recheck 4 weeks and prn. * ROS: G eneral - Multi System: Integumentary R EPORTSRASH left arm REPORTSbruising rifht forearm. * Medical History: Epilepsy Multiple fractures Cataracts Medical History Verified * Surgical History: vagal stimulator brain surgery skin graft, leg elbow,left cataract removal cataract-lens implants Surgical History verified. * Hospitalization/Major Diagno stic Procedure: UTI 10/15/2021 see surgery hx Hospitalization Verified. * Family History: F ather: alive. M other: alive. F amily History Verified.. * Social History: T obacco Use: T obacco Control (Standard) T obacco use: N onsmoker S ocial History Verified. D epression screen completed 02/10/2024 score 4, PHQ9 01/11/2025, PHQ9 02/16/2025. * Medications: T akingVentolin HFA 108 (90 Base) MCG/ACT Aerosol Solution INHALE TWO PUFFS with spacer BY MOUTH FOUR TIMES DAILY NEEDED SHAKE WELL 4 times a day prn spacerclonazePAM 0.25 MG Tablet Disintegrating TAKE ONE TABLET BY MOUTH TWICE DAILY FOR SEIZURES Oral Fluticasone Propionate HFA 220 MCG/ACT Aerosol INHALE 1 PUFF BY MOUTH TWICE DAILY (shake WELL). FOR breathing/asthma Gas Relief Extra Strength 125 mg Capsule TAKE ONE CAPSULE BY MOUTH EVERY 8 HOURS NEEDED FOR GASTRITIS OR STOMACH Clotrimazole 1 % Cream apply externally TWICE DAILY NEEDED FOR rash Thick-It - Powder USES DIRECTED. busPIRone HCl 10 mg Tablet TAKE ONE TABLET BY MOUTH THREE TIMES DAILY FOR ANXIETY FOR 30 DAYS Cefdinir 300 MG Capsule Oral diazePAM 10 MG Gel INSERT 5MG RECTALLY FOR SEIZURE LASTING MORE THAN 10 MINUTES; MAY REPEAT NEEDED DIRECTED. levETIRAcetam 500 mg Tablet TAKE TWO TABLETS BY MOUTH EVERY TWELVE HOURS FOR seizures FOR 30 DAYS SM Tussin DM Max 20-400 MG/20ML Liquid TAKE TWO TEASPOONFULS BY MOUTH TWICE DAILY NEEDED FOR DAYTIME COUGH. Dilantin Infatabs 50 mg Tablet Chewable TAKE ONE TABLET BY MOUTH THREE TIMES DAILY Promethazine-DM 6.25-15 MG/5ML Syrup take 5mL BY MOUTH EVERY 4 HOURS NEEDED FOR evening cough FOR 30 DAYS Acidophilus Probiotic 0.5 MG Tablet TAKE DIRECTED ONCE DAILY Anti-Diarrheal 2 mg Tablet TAKE ONE TABLET BY MOUTH FOUR TIMES DAILY NEEDED FOR DIARRHEA FOR 30 DAYS Zonegran 100 mg Capsule TAKE ONE CAPSULE BY MOUTH TWICE DAILY FOR seizures. Pantoprazole Sodium 40 mg Tablet Delayed Release TAKE ONE TABLET BY MOUTH EVERY DAY FOR STOMACH. Ondansetron HCl 4 mg Tablet TAKE ONE TABLET BY MOUTH EVERY 4 HOURS NEEDED FOR NAUSEA AND FOR VOMITING Budesonide-Formoterol Fumarate 80-4.5 MCG/ACT Aerosol INHALE TWO PUFFS BY MOUTH TWICE DAILY FOR 30 DAYS. Tamsulosin HCl 0.4 mg Capsule TAKE ONE CAPSULE BY MOUTH EVERY MORNING AND EVERY EVENING. FOR BLADDER Acetaminophen 325 mg Tablet TAKE TWO TABLETS BY MOUTH EVERY 6 HOURS NEEDED FOR PAIN OR FEVER >100 Mupirocin 2 % Ointment APPLY EXTERNALLY TWICE DAILY TO WOUND UNTIL CLEAR Vitamin B Complex - Tablet as directed Orally once a day Montelukast Sodium 10 mg Tablet TAKE ONE TABLET BY MOUTH EVERY DAY Nitrofurantoin Macrocrystal 100 mg Capsule TAKE ONE CAPSULE BY MOUTH EVERY DAY FOR 30 DAYS FOR UTI SYMPTOMS Daily- Len Multivitamin - Tablet TAKE ONE TABLET BY MOUTH EVERY DAY (100 DAYS) predniSONE 5 mg Tablet TAKE ONE TABLET BY MOUTH EVERY DAY FOR arthritis Folic Acid 1 mg Tablet TAKE ONE TABLET BY MOUTH EVERY DAY FOR folic acid deficiency Famotidine 20 mg Tablet TAKE ONE TABLET BY MOUTH TWICE DAILY FOR stomach FLUoxetine HCl 10 mg Capsule TAKE ONE CAPSULE BY MOUTH ONCE A DAY AT NOON (IN ADDITION TO 20 MG) FOR 30 DAYS. (FOR depression) Diclofenac Sodium 1 % Gel apply FOUR grams of gel FOUR TIMES DAILY TO affected joint NEEDED Triamcinolone Acetonide 0.1 % Cream APPLY TO THE AFFECTED AREA(S) NEEDED TO RASH. Sucralfate 1 GM/10ML Suspension TAKE 10ML BY MOUTH ON AN EMPTY STOMACH TWICE DAILY. (REPLACES SUCRALFATE TABS) FOR stomach Maxitrol 3.5-99736-8.1 Ointment 1 application into the lower eyelid of affected eye Ophthalmic Three times a day FT Mucus Relief 12HR 600 mg Tablet Extended Release 12 Hour TAKE ONE TABLET BY MOUTH TWICE DAILY FOR 30 DAYS Phenazopyridine HCl 100 mg Tablet TAKE TWO TABLETS BY MOUTH TWICE DAILY FOR URINARY RETENTION FOR 30 DAYS FLUoxetine HCl 20 mg Capsule TAKE ONE CAPSULE BY MOUTH EVERY DAY AT NOON FOR mood/anxiety Polyethylene Glycol 3350 17 GM/SCOOP Powder MIX ONE SCOOP WITH EIGHT OUNCES of FLUID DIRECTED AND drink BY MOUTH every other DAY FOR 30 DAYS Cyanocobalamin 1000 MCG/ML Solution INJECT 1ML INTRAMUSCULARLY MONTHLY Vimpat 150 mg Tablet TAKE ONE TABLET BY MOUTH TWICE DAILY Benzonatate 100 MG Capsule 1 capsule as needed Orally Three times a day , stop date 05/15/2025Systane Ultra 0.4-0.3 % Solution instill one drop in each eye three times daily.(for dry eyes) Fluticasone Propionate 50 MCG/ACT Suspension use one spray into each nostril every day (shake well). Taking Ventolin HFA 108 (90 Base) MCG/ACT Aerosol Solution INHALE TWO PUFFS with spacer BY MOUTH FOUR TIMES DAILY NEEDED SHAKE WELL 4 times a day prn spacerTaking clonazePAM 0.25 MG Tablet Disintegrating TAKE ONE TABLET BY MOUTH TWICE DAILY FOR SEIZURES Oral Taking Fluticasone Propionate HFA 220 MCG/ACT Aerosol INHALE 1 PUFF BY MOUTH TWICE DAILY (shake WELL). FOR breathing/asthma Taking Gas Relief Extra Strength 125 mg Capsule TAKE ONE CAPSULE BY MOUTH EVERY 8 HOURS NEEDED FOR GASTRITIS OR STOMACH Taking Clotrimazole 1 % Cream apply externally TWICE DAILY NEEDED FOR rash Taking Thick-It - Powder USES DIRECTED. Taking busPIRone HCl 10 mg Tablet TAKE ONE TABLET BY MOUTH THREE TIMES DAILY FOR ANXIETY FOR 30 DAYS Taking Cefdinir 300 MG Capsule Oral Taking diazePAM 10 MG Gel INSERT 5MG RECTALLY FOR SEIZURE LASTING MORE THAN 10 MINUTES; MAY REPEAT NEEDED DIRECTED. Taking levETIRAcetam 500 mg Tablet TAKE TWO TABLETS BY MOUTH EVERY TWELVE HOURS FOR seizures FOR 30 DAYS Taking SM Tussin DM Max 20-400 MG/20ML Liquid TAKE TWO TEASPOONFULS BY MOUTH TWICE DAILY NEEDED FOR DAYTIME COUGH. Taking Dilantin Infatabs 50 mg Tablet Chewable TAKE ONE TABLET BY MOUTH THREE TIMES DAILY Taking Promethazine-DM 6.25-15 MG/5ML Syrup take 5mL BY MOUTH EVERY 4 HOURS NEEDED FOR evening cough FOR 30 DAYS Taking Acidophilus Probiotic 0.5 MG Tablet TAKE DIRECTED ONCE DAILY Taking Anti-Diarrheal 2 mg Tablet TAKE ONE TABLET BY MOUTH FOUR TIMES DAILY NEEDED FOR DIARRHEA FOR 30 DAYS Taking Zonegran 100 mg Capsule TAKE ONE CAPSULE BY MOUTH TWICE DAILY FOR seizures. Taking Pantoprazole Sodium 40 mg Tablet Delayed Release TAKE ONE TABLET BY MOUTH EVERY DAY FOR STOMACH. Taking Ondansetron HCl 4 mg Tablet TAKE ONE TABLET BY MOUTH EVERY 4 HOURS NEEDED FOR NAUSEA AND FOR VOMITING Taking Budesonide-Formoterol Fumarate 80-4.5 MCG/ACT Aerosol INHALE TWO PUFFS BY MOUTH TWICE DAILY FOR 30 DAYS. Taking Tamsulosin HCl 0.4 mg Capsule TAKE ONE CAPSULE BY MOUTH EVERY MORNING AND EVERY EVENING. FOR BLADDER Taking Acetaminophen 325 mg Tablet TAKE TWO TABLETS BY MOUTH EVERY 6 HOURS NEEDED FOR PAIN OR FEVER >100 Taking Mupirocin 2 % Ointment APPLY EXTERNALLY TWICE DAILY TO WOUND UNTIL CLEAR Taking Vitamin B Complex - Tablet as directed Orally once a day Taking Montelukast Sodium 10 mg Tablet TAKE ONE TABLET BY MOUTH EVERY DAY Taking Nitrofurantoin Macrocrystal 100 mg Capsule TAKE ONE CAPSULE BY MOUTH EVERY DAY FOR 30 DAYS FOR UTI SYMPTOMS Taking Daily-Len Multivitamin - Tablet TAKE ONE TABLET BY MOUTH EVERY DAY (100 DAYS) Taking predniSONE 5 mg Tablet TAKE ONE TABLET BY MOUTH EVERY DAY FOR arthritis Taking Folic Acid 1 mg Tablet TAKE ONE TABLET BY MOUTH EVERY DAY FOR folic acid deficiency Taking Famotidine 20 mg Tablet TAKE ONE TABLET BY MOUTH TWICE DAILY FOR stomach Taking FLUoxetine HCl 10 mg Capsule TAKE ONE CAPSULE BY MOUTH ONCE A DAY AT NOON (IN ADDITION TO 20 MG) FOR 30 DAYS. (FOR depression) Taking Diclofenac Sodium 1 % Gel apply FOUR grams of gel FOUR TIMES DAILY TO affected joint NEEDED Taking Triamcinolone Acetonide 0.1 % Cream APPLY TO THE AFFECTED AREA(S) NEEDED TO RASH. Taking Sucralfate 1 GM/10ML Suspension TAKE 10ML BY MOUTH ON AN EMPTY STOMACH TWICE DAILY. (REPLACES SUCRALFATE TABS) FOR stomach Taking Maxitrol 3.5-09395-9.1 Ointment 1 application into the lower eyelid of affected eye Ophthalmic Three times a day Taking FT Mucus Relief 12HR 600 mg Tablet Extended Release 12 Hour TAKE ONE TABLET BY MOUTH TWICE DAILY FOR 30 DAYS Taking Phenazopyridine HCl 100 mg Tablet TAKE TWO TABLETS BY MOUTH TWICE DAILY FOR URINARY RETENTION FOR 30 DAYS Taking FLUoxetine HCl 20 mg Capsule TAKE ONE CAPSULE BY MOUTH EVERY DAY AT NOON FOR mood/anxiety Taking Polyethylene Glycol 3350 17 GM/SCOOP Powder MIX ONE SCOOP WITH EIGHT OUNCES of FLUID DIRECTED AND drink BY MOUTH every other DAY FOR 30 DAYS Taking Cyanocobalamin 1000 MCG/ML Solution INJECT 1ML INTRAMUSCULARLY MONTHLY Taking Vimpat 150 mg Tablet TAKE ONE TABLET BY MOUTH TWICE DAILY Taking Benzonatate 100 MG Capsule 1 capsule as needed Orally Three times a day , stop date 05/15/2025Taking Systane Ultra 0.4-0.3 % Solution instill one drop in each eye three times daily.(for dry eyes) Taking Fluticasone Propionate 50 MCG/ACT Suspension use one spray into each nostril every day (shake well). * Allergies: A spirinInfluenza A (H1N1) Monoval VaclevoFLOXacin: rashVancomycin HCl: rash - Allergy - Criticality HighyesAllergies Verified. Objective: * Vitals: H t: 57 in, Wt:121lbs, Wt-k.89 kg, BMI:26.18Index, Temp:97.0F, BP:130/76mm Hg, HR:88/min, RR:18/min, Oxygen sat %:94%, O2 Source: RA, Pain scale: 6 1-10, Ht- cm: 144.78 cm. * Examination: G eneral Examination: GENERAL APPEARANCE: v rogelio alert and cheerful; well hydrated, in no distress, converses fairly well. HEAD: n ormocephalic. EYES: P ERRL;. NECK/THYROID: n o cervical lymphadenopathy , no jugular venous distention. SKIN: w arm and dry mid low back with darkened red discoloration ; no open area left wrist with rash in shape/pattern of arm bands left forearm rash; in pattern of iv tape right forearm bruising; no open area. HEART: R egular rate and rhythm, S1 S2 normal. LUNGS: c lear to auscultation bilaterally, no wheezes, rales, or rhonchi. EXTREMITIES: b ilateral hands with marked deformity noted proximal phalanges ; increased deformity some contractures hands and ankles as is patient normal marked deformity fingers left hand; acquired;. NEUROLOGIC: i n wheelchair alert;. PSYCH: c ooperative with exam , , alert, oriented. ? Assessment: * Assessment: 1. R rocco - R21 (Primary) 2 . C andidiasis - B37.9 3 . H ospital discharge follow-up - Z51.89 4 . 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 S eizure disorder - G40.909 6 . 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 D rug therapy continued - Z79.899 Plan: * Treatment: 2. C andidiasis Start Diflucan Tablet, 150 MG, 1 tablet po q day, Orally, 3 days, 3, Start Date: 04/30/2025, Stop Date: 05/06/2025, Refills 1. Notes: diflucan 3. B 12 deficiency Notes: b12 1000 mcg im 4. S eizure disorder Notes: continue meds 5. 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 D rug therapy continued L AB: CBC w\ Auto Diff [id number] (Collection Date & Time - 04/30/2025 11:40 AM) L AB: Comprehensive Metabolic Panel (CMP) 47501 (Collection Date & Time - 04/30/2025 11:40 AM) Notes: cbc cmp 7. O thers Notes: Questions asked and answered; discharged to home. Clinical Notes:Venipuncture:Performed by: Adrianna PEREZ Attempts: x1 Location:[facility] Needle gauge: 21g Patient tolerated well. * Therapeutic Injections: Dexamethasone Sodium Phosphate : 4 mg (Route: Combination inj. into one route) given by Estelle Ramirez on left hip (Rheumatoid arthritis involving multiple sites with positive rheumatoid factor) Depo-Medrol/Methylprednisolone per 40mg : 40 mg (Route: Combination inj. into one route) given by Estelle Ramirez on left hip (Rheumatoid arthritis involving multiple sites with positive rheumatoid factor) Vitamin B-12, up to 1,000 mcg : 1000 mcg (Route: Intramuscular) given by Estelle Ramirez on left hip * Procedure Codes: 3 6415 VENIPUNCT, ROUTINE*58108 VENIPUNCT, ROUTINE*3078F DIAST BP < 80 MM [id number] SYST BP GE 130 - 139MM [id number] TRANSJ CARE MGMT HIGH F2F [id number] Dexamethasone Sodium Cfkjronck04040 THER/PROPH/DIAG INJ, SC/IIE1274 Injection, methylprednisolone acetate, 1 mg, Units: 40.00 J3420 Vitamin B-12, up to 1,000 mcg * Preventive Medicine: Screenings: A s Listed Below * . L AST WELLNESS VISIT (if today's visit is wellness, use today's date): Date: 0 02/16/2025 B REAST CANCER SCREENING: Date of most recent screening: N ever Prior breast cancer screening: h as never occurred Provider recommendation: R efuses further screening 11/16/2024, 02/16/2025 C ARE FOR OLDER ADULTS Advanced Care Planning date 0 02/16/2025 Advanced care planning: A dvanced directive discussed, but no healthcare proxy present, Durable power of mergers and acquisitions attorney for healthcare Patients sister is her POA and guardian Functional Status R equires wheelchair Function Status Assessment date 0 02/16/2025 Medication review date 0 02/16/2025 Pain Assessment date 0 02/16/2025 Pain 4/10 C ERVICAL CANCER SCREENING: Cancer screening cervical (age 21-64)?Annual pap smear Provider recommendation: N /A due to age Date scheduled: R efuses 11/16/2024 C OLORECTAL CANCER SCREENING: Date of last colonoscopy H as never been done Provider recommendation: R efuses further screening Date scheduled: R efuses 11/16/2024 D EPRESSION SCREENING: Date of most recent screenin 02/16/2025 The patient denies: a nxiety, depressed mood, difficulty sleeping, lack of energy, lack of interest in things that were enjoyable, poor appetite, sadness, thoughts of harming him/herself, thought of harming someone else, trouble concentrating, weight gain, weight loss, any depressive symptoms at this time Suicidal ideation: h as never been expressed/considered Homicidal ideation: h as never been expressed/considered F ALL RISK SCREENING Screening: N o falls in the past year F UNCTIONAL CAPACITY: Patient mobility: h as been severely affected The patient lacks/has minimal ability to: b athe him/herself, feed him/herself, get dressed, groom him/herself, lift arms above head, lift legs, move in the house/home, transfer, use the toilet, walk Use of assist device: o ccurs consistently Patient requires the use of assistance by aide and wheelchair Independent self care: i s not possible V ACCINATIONS: Is patient's pneumococcal vaccine current? N o If No, explain P atient refuses Influenza vaccinations: i s rarely done Reaction to vaccination(s): h as been severe Patient had reaction to Influenza Vaccine and is unable to take it-03/18/25 * Follow Up: 4 Weeks (Reason: recheck) Billing Information: * Visit Code: 23944 Office Visit, Est Pt., Level 3. * Procedure Codes: 85735 VENIPUNCT, ROUTINE*. 37001 VENIPUNCT, ROUTINE*. 3078F DIAST BP < 80 MM HG. 3075F SYST BP GE 130 - 139MM HG. 97709 TRANSJ CARE MGMT HIGH F2F 7D. J1100 Dexamethasone S[place] Phosphate. 04334 THER/PROPH/DIAG INJ, SC/IM. J1010 Injection, methylprednisolone acetate, 1 mg. Units: 40.00. J3420 Vitamin B-12, up to 1,000 mcg. * Electronic signature of Kaushik Trivedi APN on 05/02/2025 at 09:17 AM [place] Sign off status: Pending * Provider: Radha Trivedi RADIOLOGY INTERVENTIONAL PHYSICIAN Date: 07/01/2024 Generated for Petey frederick/[place] on: 07/03/2024 09:17 AM [place]
[2025-05-02 09:11] VITALS: BP 182/148; RESP 16; O2SAT 97
--- NOTE | 2025-05-02 09:11 | CTR_ITS ---
PROCEDURE INFORMATION: Exam: CT Cervical Spine Without Contrast Exam date and time: 05/02/2025 9:31 AM Age: 69 years old Clinical indication: Injury or trauma; Fall TECHNIQUE: Imaging protocol: Computed tomography of the cervical spine without contrast. Radiation optimization: All CT scans at this facility use at least one of these dose optimization techniques: automated exposure control; mA and/or kV adjustment per patient size (includes targeted exams where dose is matched to clinical indication); or iterative reconstruction. COMPARISON: CT head wo con* [id number] 08/12/2024 2:34 PM RADIATION DOSE METRICS: Total DLP (mGy-cm): 378.6 FINDINGS: Tubes, catheters and devices: Left neck neural stimulator. Bones: No fracture. No destructive bony process identified. Mild atlantodental osteoarthritis. Right C1-C2 lateral mass mild primary osteoarthritis. Mild C3-C4, C4-C5 anterolisthesis. Moderate right C3-C4 primary facet osteoarthritis. Mild left C3-C4, C4-C5 primary facet osteoarthritis. Moderate right C5-C6 primary facet osteoarthritis. C5-6 and C6-7 moderate degenerative disc disease with moderate spondylosis. Right C5-C6 uncovertebral osteoarthritis. Slight C7-T1 anterolisthesis. Mild bilateral C7-T1 primary facet osteoarthritis. Moderate chronic appearing T2 vertebral body compression deformity. Lungs: Mosaic lung attenuation is present consistent with small airways or small vessels disease. Pleural spaces: Moderate dependent left pleural effusion. Soft tissues: Unremarkable. CT/CT cervical spin wo con* [id number] IMPRESSION: 1. Degenerative changes as above. 2. No acute cervical spinal bony injury identified. 3. Moderate chronic appearing T2 vertebral body compression deformity. 4. Possible small airways/small vessels disease. 5. Moderate dependent left pleural effusion.
--- NOTE | 2025-05-02 09:11 | CTR_ITS ---
PROCEDURE INFORMATION: Exam: CT Maxillofacial Without Contrast Exam date and time: 05/02/2025 9:31 AM Age: 69 years old Clinical indication: Injury or trauma; Fall; Blunt trauma (contusions or hematomas); Cheek bone and forehead and nose and orbit/periorbital and maxilla; Left; Additional info: Trauamatic facial pain TECHNIQUE: Imaging protocol: Computed tomography of the face without contrast. Radiation optimization: All CT scans at this facility use at least one of these dose optimization techniques: automated exposure control; mA and/or kV adjustment per patient size (includes targeted exams where dose is matched to clinical indication); or iterative reconstruction. COMPARISON: CT head wo con* [id number] 08/12/2024 2:34 PM RADIATION DOSE METRICS: Total DLP (mGy-cm): 624.1 FINDINGS: Paranasal sinuses: Hyperdense material is present in the left maxillary sinus. Orbital cavities: Globes and ocular adnexae are unremarkable. Bones: Minor asymmetric angular deformity of the left orbital floor near the infraorbital nerve groove (series 8, image 22) but without ectopic gas or discrete fracture line. Fractured bilateral nasal bones and anterior frontal processes of maxilla, with caudal angulation and depression of the nasal tip (series 9, image 31). Ectopic gas present in the left anterior maxillary alveolar bone (series 8, images 5-7). Ectopic gas in the junction of the cartilaginous and bony nasal septum (series 8, images 8-9). Bilateral temporomandibular joint primary osteoarthritis. Soft tissues: Left facial/preseptal periorbital, bilateral perinasal soft tissue swelling. CT/CT facial bones wo con* [id number] IMPRESSION: 1. Buckle fracture left orbital floor, with left maxillary sinus intraluminal presumed blood products. 2. Fractured bilateral nasal bones and anterior frontal processes of maxilla. 3. Ectopic gas present in the left anterior maxillary alveolar bone suggesting occult injury. 4. Injury of the cartilaginous/bony nasal septum junction.
--- NOTE | 2025-05-02 09:11 | CTR_ITS ---
PROCEDURE INFORMATION: Exam: CT Head Without Contrast Exam date and time: 05/02/2025 9:31 AM Age: 69 years old Clinical indication: Injury or trauma; Additional info: Fall, head injury TECHNIQUE: Imaging protocol: Computed tomography of the head without contrast. Radiation optimization: All CT scans at this facility use at least one of these dose optimization techniques: automated exposure control; mA and/or kV adjustment per patient size (includes targeted exams where dose is matched to clinical indication); or iterative reconstruction. COMPARISON: CT head wo con* [id number] 08/12/2024 2:34 PM RADIATION DOSE METRICS: Total DLP (mGy-cm): 1295.4 FINDINGS: Brain: Chronic left MCA/LAURA infarction. No acute infarction. No mass. No edema. No hemorrhage. Mild hypoattenuating foci are noted in the anterior lateral ventricular periventricular white matter bilaterally. Severe cerebellar atrophy. No intracranial hemorrhage. No mass or acute cortical infarction identified. Wallerian degeneration left cerebral peduncle, left thalamus. Ventricles: Prominence of the ventricular system and subarachnoid spaces is consistent with the patient's age of 69 years. Ex vacuo enlargement of the left lateral ventricle and 3rd ventricle. Paranasal sinuses: Visualized sinuses are unremarkable. No fluid levels. Mastoid air cells: Left predominant bilateral mastoid partial effusion. Orbital cavities: Right prior cataract surgery. Left prior cataract surgery with lens replacement. Bones: Prior craniotomies and ellen holes. No calvarial or skull base fracture. Please see the facial CT report of the same date for additional findings. Soft tissues: Unremarkable. Vasculature: Atherosclerotic calcifications are present involving the carotid artery siphons bilaterally and the left vertebral artery. CT/CT head wo con* [id number] IMPRESSION: 1. Chronic left MCA/LAURA infarction. 2. No acute intracranial injury identified. 3. Age appropriate supratentorial and infratentorial atrophy. 4. Mild chronic white matter microvascular ischemic disease. 5. Please see the facial CT report of the same date for additional findings.
--- NOTE | 2025-05-02 09:16 | W.ED.FALL ---
HPI - Fall General: Chief Complaint: Fall Stated Complaint: facial trauma s/p fall Time Seen by Provider: 05/02/25 09:09 History of Present Illness: 69-year-old female with a history of seizure disorder, traumatic brain injury, right sided hemiplegia, COPD, recurrent pneumonia and a chronic indwelling Vallecillo catheter who presents emergency room by ambulance from an assisted living facility after having had a fall. Apparently she was on the toilet and fell forward striking her face. Unknown if there was loss of consciousness. No anticoagulation listed in the chart. She has extensive bruising to the left side of her face. Some bleeding from her nose which is stopped. According to EMS she is back to her baseline. Related Data Home Medications ?Medication ?Instructions ?Recorded ?Confirmed folic acid 1 mg tablet 1 mg PO DAILY@11/25/19 04/18/25 montelukast 10 mg tablet 10 mg PO DAILY@11/25/19 04/18/25 (Singulair) multivitamin 1 tab PO DAILY@11/25/19 04/18/25 pantoprazole 40 mg tablet,delayed 40 mg PO DAILY@11/25/19 04/18/25 release (Protonix) phenazopyridine 95 mg tablet (Azo 190 mg PO BID PRN Bladder Spasms 11/25/19 04/18/25 Urinary Pain Relief) simethicone 125 mg capsule (Gas-X 125 mg PO Q8H PRN Stomach Upset 11/25/19 04/18/25 Extra Strength) zonisamide 100 mg capsule 600 mg PO DAILY 11/25/19 04/24/25 (Zonegran) Lactobacillus acidophilus 1 tab PO DAILY@10/15/21 04/18/25 (Acidophilus chewable tablet) albuterol sulfate 90 mcg/actuation 2 puff inhalation QID PRN 10/15/21 04/18/25 aerosol inhaler Shortness Of Breath diclofenac sodium 1 % topical gel 4 g topical QID PRN Pain/arthritis 10/15/21 04/18/25 fluoxetine 20 mg tablet 20 mg PO DAILY@10/15/21 04/18/25 food supplemt, lactose-reduced 1 ea PO TID@,13,19 10/15/21 04/18/25 (Nutritional Drink oral liquid) famotidine 20 mg tablet 20 mg PO BID 06/01/22 04/18/25 fluoxetine 10 mg capsule 10 mg PO DAILY@12 06/07/22 04/18/25 peg 400-propylene glycol 0.4 %-0.3 1 drp ophthalmic (eye) TID 06/07/22 04/18/25 % eye drops (Systane (propylene glycol)) phenytoin 50 mg chewable tablet 50 mg PO TID@08,14,20 06/07/22 04/18/25 (Dilantin Infatabs) budesonide-formoterol HFA 80 2 puff inhalation BID 12/04/23 04/18/25 mcg-4.5 mcg/actuation aerosol inhaler buspirone 10 mg tablet 10 mg PO TID 12/04/23 04/18/25 lacosamide 150 mg tablet (Vimpat) 150 mg PO BID 12/04/23 04/18/25 loperamide 2 mg tablet 2 mg PO QID PRN Diarrhea 12/04/23 04/18/25 (Anti-Diarrheal (loperamide)) prednisone 5 mg tablet 5 mg PO QAM 12/04/23 04/18/25 sucralfate 100 mg/mL oral 10 ml PO BID 12/04/23 04/18/25 suspension tamsulosin 0.4 mg capsule (Flomax) 0.4 mg PO BID 07/06/24 04/18/25 acetaminophen 325 mg tablet 650 mg PO Q6H PRN pain or elevated 07/08/24 04/18/25 temp cyanocobalamin (vitamin B-12) 1,000 mcg IM Q30D 07/08/24 04/18/25 1,000 mcg/mL injection solution levetiracetam 500 mg tablet 2,000 mg PO BID 07/08/24 04/18/25 (Keppra) polyethylene glycol 3350 17 gram 17 g PO EVERY OTHER DAY 07/08/24 04/18/25 oral powder packet (Miralax) promethazine-DM 6.25 mg-15 mg/5 mL 5 ml PO Q4H PRN evening cough 07/08/24 04/18/25 oral syrup triamcinolone acetonide 0.1 % 1 applic topical BID PRN rash or 07/08/24 04/18/25 topical cream itching vitamin B complex 1 tab PO .DAILY@12PM 07/08/24 04/18/25 fluticasone propionate 50 1 spray intranasal DAILY 04/18/25 04/18/25 mcg/actuation nasal spray,suspension guaifenesin 600 mg tablet, 5 mg PO PRN PRN Cough 04/18/25 04/18/25 extended release 12 hr (Mucus Relief ER) mupirocin 2 % topical ointment 1 applic topical BID 04/18/25 04/18/25 Previous Rx's ?Medication ?Instructions ?Recorded albuterol sulfate 5 mg/mL(0.5 %) 5 mg inhalation TID PRN shortness 03/04/24 solution for nebulization of breath or wheezing #600 mL diazepam 5 mg-7.5 mg-10 mg rectal 10 mg LA Q4H PRN seizure activity 04/13/24 kit 2 doses #1 ea benzonatate 100 mg capsule 100 mg PO TID PRN Cough #30 caps 04/27/25 cephalexin 500 mg tablet 500 mg PO TID 10 days #30 tabs 05/02/25 hydrocodone 5 mg-acetaminophen 325 1 tab PO Q6H PRN pain #20 tabs 05/02/25 mg tablet Allergies Allergy/AdvReac Type Severity Reaction Status Date / Time adhesive Allergy ALGY-Rash Verified 05/02/25 09:35 aspirin Allergy Unknown Verified 05/02/25 09:35 Influenza Virus Vaccines Allergy Unknown Verified 05/02/25 09:35 levofloxacin (From Levaquin) Allergy ALGY-Hives Verified 05/02/25 09:35 vancomycin Allergy ALGY-Hives Verified 05/02/25 09:35 Review of Systems Narrative: Constitutional symptoms: Negative except as documented in HPI. Skin symptoms: Negative except as documented in HPI. Eye symptoms: Negative except as documented in HPI. ENMT symptoms: Negative except as documented in HPI. Respiratory symptoms: Negative except as documented in HPI. Cardiovascular symptoms: Negative except as documented in HPI. Gastrointestinal symptoms: Negative except as documented in HPI. Genitourinary symptoms: Negative except as documented in HPI. Musculoskeletal symptoms: Negative except as documented in HPI. Neurologic symptoms: Negative except as documented in HPI. Psychiatric symptoms: Negative except as documented in HPI. Endocrine symptoms: Negative except as documented in HPI. PFS ED PFSH: Medical History (Updated 05/02/25 @ 11:24 by Stephani Godoy MD) Chronic indwelling Vallecillo catheter Encephalomalacia without cerebral infarction Altered mental status Pseudomonas urinary tract infection Elevated Dilantin level Acquired intellectual disability Dehydration Rheumatoid arthritis Seizures Brain injury Urinary retention Encephalopathy chronic Generalized epilepsy Epilepsy Surgical History History of craniotomy Family History Other No pertinent family history Social History Smoking and tobacco/nicotine status: former use of tobacco/nicotine Physical Exam Narrative: EXAM NARRATIVE: General: Alert, no acute distress. Skin: Warm, dry. Head: Normocephalic, extensive bruising mostly to the left side of the face.. Neck: Supple, trachea midline. Eye: Extraocular movements are intact. Ears, nose, mouth and throat: mucosa moist. Cardiovascular: Regular, Normal peripheral perfusion. Respiratory: Lungs are clear to auscultation, respirations are non-labored, breath sounds are equal, Symmetrical chest wall expansion. Gastrointestinal: Soft, Nontender, Non distended Musculoskeletal: Normal ROM, no deformity. Neurological: Awake and alert, contracture right hand Psychiatric: Cooperative Course Vital Signs: Vital signs: Vital Signs Temperature 98.4 F 05/02/25 09:47 Pulse Rate 78 05/02/25 10:56 Respiratory Rate 16 05/02/25 10:56 Blood Pressure 158/95 05/02/25 10:56 Pulse Oximetry 96 05/02/25 10:56 Oxygen Delivery Me thod Room Air 05/02/25 10:56 MDM - Fall Medical Decision Making Medical decision making Patient's reason for coming to the emergency room: 69-year-old female with a history of seizure disorder, traumatic brain injury, right sided hemiplegia, COPD, recurrent pneumonia and a chronic indwelling Vallecillo catheter Social determinants: retired. assisted living I reviewed the patient's medical record. 69-year-old female with a history of seizure disorder, traumatic brain injury, right sided hemiplegia, COPD, recurrent pneumonia and a chronic indwelling Vallecillo catheter I reviewed the patient's current home meds No anticoagulation. Prescription monitoring shows clonazepam but no pain medications. Alternate historians: None Differential diagnosis including but not limited to and based on the above HPI, review of systems and physical exam: patient with fall and head injury. Subdural hematoma, subarachnoid hemorrhage, concussion, skull fracture. Facial CT ordered with facial injuries. Concern for nasal fractures and facial fractures. Orders placed to evaluate differential diagnosis based on the above differential, HPI and physical exam CT scan of the head was ordered. CT head: Chronic left MCA/LAURA infarction. No acute intracranial process. No intracranial hemorrhage, no evidence of infarct. No evidence of acute fracture. This was reviewed and interpreted by myself the emergency room physician. I also reviewed the radiology report. CT of the facial bones: Buckle fracture left orbital floor. Intraluminal blood products in the maxillary sinus. Bilateral nasal bone fractures. Anterior frontal maxillary process fractures. Cartilaginous/bony nasal septum junction injury. This was reviewed and interpreted by myself the emergency room physician. I also reviewed the radiology report. CT of the cervical spine: This was ordered secondary to patient being a poor historian to rule out any fractures etc. Degenerative changes. No fracture. Good alignment. No step-offs. This was reviewed and interpreted by myself the emergency room physician. I also reviewed the radiologist report. Lab Review: Laboratory results were reviewed and interpreted by myself the emergency room physician. No lab work indicated today. Assessment of risk: Level of risk: High risk patient. Multiple comorbidities. Hospitalization considerations: I did consider hospitalization. I consulted ENT at [facility] in [place] and they recommend follow-up as an outpatient. Reexamination: Patient remained stable. No increased work of breathing. No altered mental status. No focal motor deficits. No oxygen requirements. According to caregiver she is at her baseline. Consultation: I spoke with the ENT and they agree with antibiotics and pain control and follow-up in clinic in 4 to 5 days after swelling has gone down. They have taken her information and the phone number of the home that she lives in and they will contact with an appointment. I discussed with caregiver that if they do not contact them that they should call the clinic. Assessment and plan: Orbital fracture Nasal bone fracture. - Discharged home - Discussed findings and plan with patient. Answered any questions. - All laboratory values were reviewed and interpreted personally by myself, the ER physician - All imaging was reviewed and interpreted personally by myself, the ER physician. - Evaluation and treatment of this problem were appropriate in the emergency setting Lab Data Radiology Impressions Cervical Spine CT 05/02/25 09:11 IMPRESSION: 1. Degenerative changes as above. 2. No acute cervical spinal bony injury identified. 3. Moderate chronic appearing T2 vertebral body compression deformity. 4. Possible small airways/small vessels disease. 5. Moderate dependent left pleural effusion. Face CT 05/02/25 09:11 IMPRESSION: 1. Buckle fracture left orbital floor, with left maxillary sinus intraluminal presumed blood products. 2. Fractured bilateral nasal bones and anterior frontal processes of maxilla. 3. Ectopic gas present in the left anterior maxillary alveolar bone suggesting occult injury. 4. Injury of the cartilaginous/bony nasal septum junction. Head CT 05/02/25 09:11 IMPRESSION: 1. Chronic left MCA/LAURA infarction. 2. No acute intracranial injury identified. 3. Age appropriate supratentorial and infratentorial atrophy. 4. Mild chronic white matter microvascular ischemic disease. 5. Please see the facial CT report of the same date for additional findings. All radiology interpretation(s) finalized by discharge Discharge Plan Discharge Patient Disposition: Home Clinical Impression: Orbital floor fracture, Fracture, nasal Condition: Stable Prescriptions: New hydrocodone-acetaminophen 5-325 mg tablet 1 tab PO Q6H PRN (Reason: pain) Qty: 20 0RF cephalexin 500 mg tablet 500 mg PO TID 10 Days Qty: 30 0RF No Action folic acid 1 mg tablet 1 mg PO DAILY@08 montelukast [Singulair] 10 mg tablet 10 mg PO DAILY@08 multivitamin Tablet 1 tab PO DAILY@08 pantoprazole [Protonix] 40 mg tablet,delayed release (DR/EC) 40 mg PO DAILY@08 zonisamide [Zonegran] 100 mg capsule 600 mg PO DAILY phenazopyridine [Azo Urinary Pain Relief] 95 mg tablet 190 mg PO BID PRN (Reason: Bladder Spasms) simethicone [Gas-X Extra Strength] 125 mg capsule 125 mg PO Q8H PRN (Reason: Stomach Upset) tamsulosin [Flomax] 0.4 mg capsule 0.4 mg PO BID sucralfate 100 mg/mL suspension 10 ml PO BID prednisone 5 mg tablet 5 mg PO QAM loperamide [Anti-Diarrheal (loperamide)] 2 mg tablet 2 mg PO QID PRN (Reason: Diarrhea) buspirone 10 mg tablet 10 mg PO TID budesonide-formoterol 80-4.5 mcg/actuation HFA aerosol inhaler 2 puff INHALATION BID lacosamide [Vimpat] 150 mg tablet 150 mg PO BID albuterol sulfate 5 mg/mL solution for nebulization 5 mg inhalation TID PRN (Reason: shortness of breath or wheezing) Qty: 600 0RF acetaminophen 325 mg tablet 650 mg PO Q6H PRN (Reason: pain or elevated temp) promethazine-DM 6.25-15 mg/5 mL syrup 5 ml PO Q4H PRN (Reason: evening cough) triamcinolone acetonide 0.1 % cream 1 applic TOPICAL BID PRN (Reason: rash or itching) cyanocobalamin (vitamin B-12) 1,000 mcg/mL solution 1,000 mcg IM Q30D levetiracetam [Keppra] 500 mg tablet 2,000 mg PO BID vitamin B complex Tablet 1 tab PO .DAILY@12PM polyethylene glycol 3350 [Miralax] 17 gram Powder In Packet 17 g PO EVERY OTHER DAY fluoxetine 20 mg Tablet 20 mg PO DAILY@12 Rx Instructions: along with 10mg to=30 mg total Acidophilus Tablet,Chewable 1 tab PO DAILY@08 albuterol sulfate 90 mcg/actuation Hfa Aerosol Inhaler 2 puff INHALATION QID PRN (Reason: Shortness Of Breath) Nutritional Drink Liquid 1 ea PO TID@09,13,19 diclofenac sodium 1 % Gel 4 g TOPICAL QID PRN (Reason: Pain/arthritis) famotidine 20 mg tablet 20 mg PO BID Systane (propylene glycol) 0.4-0.3 % Drops 1 drp ophthalmic (eye) TID Rx Instructions: both eyes fluoxetine 10 mg capsule 10 mg PO DAILY@12 Rx Instructions: along with 20mg to=30 mg total phenytoin [Dilantin Infatabs] 50 mg tablet,chewable 50 mg PO TID@08,14,20 diazepam 5-7.5-10 mg kit 10 mg LA Q4H PRN (Reason: seizure activity) Qty: 1 0RF fluticasone propionate 50 mcg/actuation spray,suspension 1 spray INTRANASAL DAILY mupirocin 2 % Ointment 1 applic TOPICAL BID guaifenesin [Mucus Relief ER] 600 mg tablet extended release 12hr 5 mg PO PRN PRN (Reason: Cough) benzonatate 100 mg Capsule 100 mg PO TID PRN (Reason: Cough) Qty: 30 0RF Discharge Orders: Discharge ED (Routine); Ordered 05/02/25 Ordered By: Stephani Godoy Referrals: bogdan salas [Other] Bogdan Salas MD [Referring, Otolaryngology (ENT)] - 4-7 days Referral Note: If you do not hear from Dr. Salas's clinic please call for an appointment. Marilyn Trivedi APN [Primary Care Provider, Nurse Practitioner] Discharge Diet: Usual diet Discharge Activity: Limit activity as instructed Patient Instructions: Opioid Safety, Pain Management, Patient Portal & Leno Instructions Activity Restrictions/Additional Instructions: Please do not actively blow your nose Thank you for choosing [facility] for your healthcare needs today. You have been screened and evaluated and felt safe for discharge. Health conditions do change or evolve sometimes and as such it is important that you follow up with your Primary Doctor to be re checked, 3-5 days is a general good time frame for follow up. You are always welcome to return to the ED for re assessment if your symptoms are worsening or you have new concerns Print Language: German Coding Level of Care Code ED Senior Geologist for Ady Vidal
--- OUTSIDE RECORDS SUMMARY | 2025-05-02 09:16 | XMS_ITS | Encounter Summary ---
Author Organization [facility] Address [address] [place] [address] Care Team Providers Care Staff Registered Nurse Name Role Phone Marilyn Trivedi APN Primary Care Provider [phone] Encounter Details Date Type Department Care Team (Latest Contact Info) Description 07/26/2006 Outpatient Historical [facility] [address], [address] [place] [address] Jorge Suero MD NO ADDRESS ON FILE Grand Mal, not Intractabl (CMS/HCC) (Primary Dx) Social History Tobacco Use Types Packs/Day Years Used Date Smoking Tobacco: Never Assessed Comments Unknown Sex and Gender Information Value Date Recorded Sex Assigned at Not on file 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 [address] PCP - General 06/23/09 documented as of this encounter
--- OUTSIDE RECORDS SUMMARY | 2025-05-02 09:16 | XMS_ITS | Encounter Summary ---
Author Organization [facility] Address [address] 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
--- OUTSIDE RECORDS SUMMARY | 2025-05-02 09:16 | XMS_ITS | Encounter Summary ---
Author Organization [facility] Address [address] [place] [address] Care Team Providers Care Steamer Gum Candy Name Role Phone Marilyn Trivedi APN Primary Care Provider [phone] Encounter Details Date Type Department Care Team (Latest Contact Info) Description 12/17/2003 Outpatient Historical [facility] [address] [place] [address], [address] [place] [address] Jorge Suero MD NO ADDRESS ON FILE GEN CONVUL EPI INTRACTABLE (CMS/HCC) (Primary Dx) Social History Tobacco Use Types Packs/Day Years Used Date Smoking Tobacco: Never Assessed Comments Unknown Sex and Gender Information Value Date Recorded Sex Assigned at Not on file 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 [address] PCP - General 06/23/09 documented as of this encounter
--- OUTSIDE RECORDS SUMMARY | 2025-05-02 09:16 | XMS_ITS | Clinical Summary ---
Author Organization [facility] Address [address] Attn: Epic Prelude ADT [place] [address] Care Team Providers Care Contact Lens Curve Grinder Name Role Phone Marilyn Trivedi APN Primary Care Provider Allergies Active Allergy Reactions Criticality Noted Date Comments Aspirin Rash Low 06/16/2009 Caffeine Seizure High 06/23/2009 Homeopathic Products Other (See Comments) 06/23 Dairy products cause increased problems with sinus drainage per family Levofloxacin Rash Low 10/22/2024 Vancomycin Hcl Rash Low 10/22/2024 Medications fluticasone propionate (FLONASE) 50 mcg/spray Banks, Suspension nasal inhaler Administer 1 Banks in each nostril daily. 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 Gender Identity Not on file Sexual Orientation [...] (#1) 2024 Medical Devices Implanted Type Area Windows Systems Administrator Device Identifier Shelf Expiration Date Model / Serial / Lot Log [id number] - Acumed Locking Elbow / Clavicle Set - 1 - Plate Hook Lcp 3.5mm 3hl 02.113.103s Implanted:Qty: 1 on 06/24/2009 Plate Right: Elbow SYNTHES STRATEC 02.113.103S / / LOAD # [id number] Log 70978 - Synthes 3.5 Lcp Distal Humerus & Elbow Plate Sys - 1 - Plate Dis Humer 7h Rt 241.286 Implanted:Qty: 1 on 06/24/2009 Plate Right: Elbow SYNTHES [employer]ATEC 241.286 / / LOAD# [id number] Log 73507 - Synthes 3.5 Lcp Distal Humerus & Elbow Plate Sys - 1 - Plate Lcp Hum Post/Lat/Dis 3.5mm 241.264 Implanted:Qty: 1 on 06/24/2009 Plate Right: Elbow [employer]ES [employer]ATEC 241.264 / / LOAD# [id number] Log 80699 - Synthes Small Frag Lcp Locking - 1 - Screw Sami Self Tap 3.5x20mm 204.820 Implanted:Qty: 4 on 06/24/2009 Screw Right: Elbow SY[employer]ES [employer]ATEC 204.820 / / Log 12251 - Synthes Small Frag Lcp Locking - 1 - Screw Sami Self Tap 3.5x22mm 204.822 Implanted:Qty: 1 on 06/24/2009 Screw Right: Elbow SYN[employer]ES [employer]ATEC 204.822 / / Log [id number] - Synthes Small Frag Lcp Locking - 1 - Screw Sami Self Tap 3.5x26mm 204.826 Implanted:Qty: 1 on 06/24/2009 Screw Right: Elbow SYN[employer]ES [employer]ATEC 204.826 / / Log [id number] - Synthes Small Frag Lcp Locking - 1 - Screw Sami Self Tap 3.5x38mm 204.838 Implanted:Qty: 1 on 06/24/2009 Screw Right: Elbow SY[employer]ES [employer]ATEC 204.838 / / Log 81055 - Synthes Small Frag Lcp Locking - 1 - Screw Lock Self Tap 3.5x20mm 212.106 Implanted:Qty: 3 on 06/24/2009 Screw Right: Elbow [employer]ATEC 212.106 / / Log [id number] - Synthes Small Frag Lcp Locking - 1 - Screw Lock Self Tap 3.5x24mm 212.108 Implanted:Qty: 1 on 06/24/2009 Screw Right: Elbow SYN[employer]ES [employer]ATEC 212.108 / / Log 91655 - Synthes Small Frag Lcp Locking - 1 - Screw Lock Self Tap 3.5x28mm 212.110 Implanted:Qty: 2 on 06/24/2009 Screw Right: Elbow [employer]ES [employer]ATEC 212.110 / / Log 53190 - Synthes 3.5 Lcp Distal Humerus & Elbow Plate Sys - 1 - Screw Lock 2.7x20mm 202.220 Implanted:Qty: 2 on 06/24/2009 Screw Right: Elbow [employer]ES [employer]ATEC 202.220 / / LOAD# [id number] Log 27844 - Synthes 3.5 Lcp Distal Humerus & Elbow Plate Sys - 1 - Screw Lock 2.7x22mm 202.222 Implanted:Qty: 1 on 06/24/2009 Screw Right: Elbow [employer]ES [employer]ATEC 202.222 / / LOAD# [id number] Log 30426 - Synthes 3.5 Lcp Distal Humerus & Elbow Plate Sys - 1 - Screw Lock 2.7x24mm 202.224 Implanted:Qty: 1 on 06/24/2009 Screw Right: Elbow SYN[employer]ES [employer]ATEC 202.224 / / LOAD# [id number] Log 50397 - Synthes 3.5 Lcp Distal Humerus & Elbow Plate Sys - 1 - Screw Lock 2.7x26mm 202.226 Implanted:Qty: 1 on 06/24/2009 Screw Right: Elbow SYN[employer]ES [employer]ATEC 202.226 / / LOAD# [id number] Log 76721 - Synthes 3.5 Lcp Distal Humerus & Elbow Plate Sys - 1 - Screw Lock 2.7x30mm 202.230 Implanted:Qty: 1 on 06/24/2009 Screw Right: Elbow SYN[employer]ES [employer]ATEC 202.230 / / LOAD# [id number] Log 77070 - Synthes Small Frag Lcp Locking - 1 - Screw Sami Self Tap 3.5x18mm 204.818 Implanted:Qty: 1 on 06/24/2009 Screw Right: Elbow SYNTHES STRATEC 204.818 / / Insurance MEDICAID [place] MEDICARE PART A AND B Care Teams Contact Lens Curve Grinder Relationship Specialty Start Date End Date Marilyn Trivedi APN [facility] [address] [address] PCP - General 06/23/09
--- OUTSIDE RECORDS SUMMARY | 2025-05-02 09:16 | XMS_ITS | Encounter Summary ---
Author Organization [facility] Address [address] [place] [address] Care Team Providers Care Motor Operator Name Role Phone Marilyn Trivedi APN Primary Care Provider [phone] Encounter Details Date Type Department Care Team (Latest Contact Info) Description 03/09/2004 Outpatient Historical [facility] Neurology [address] [place] [address], [address] [place] [address] Jorge Suero MD NO ADDRESS ON FILE PSYCHO EPI INTRACTABLE (CMS/HCC) (Primary Dx) Social History Tobacco Use Types Packs/Day Years Used Date Smoking Tobacco: Never Assessed Comments Unknown Sex and Gender Information Value Date Recorded Sex Assigned at Not on file 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 [address] PCP - General 06/23/09 documented as of this encounter
--- OUTSIDE RECORDS SUMMARY | 2025-05-02 09:16 | XMS_ITS | Encounter Summary ---
Author Organization [facility] Address [address] [place] [address] Care Team Providers Care Wader Boot Top Assembler Name Role Phone Marilyn Trivedi APN Primary Care Provider [phone] Encounter Details Date Type Department Care Team (Latest Contact Info) Description 01/18/2004 Outpatient Historical [facility] Neurology [address], [address] [place] [address] Jorge Suero MD NO ADDRESS ON FILE AFTERCARE FDC USE MEDICATN (Primary Dx) Social History Tobacco Use Types Packs/Day Years Used Date Smoking Tobacco: Never Assessed Comments Unknown Sex and Gender Information Value Date Recorded Sex Assigned at Not on file 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 [facility] [address] [place] [address] PCP - General 06/23/09 documented as of this encounter
--- OUTSIDE RECORDS SUMMARY | 2025-05-02 09:16 | XMS_ITS | Encounter Summary ---
Author Organization [facility] Address [address] [place] [address] Care Team Providers Care Coating Machine Feeder Name Role Phone Marilyn Trivedi APN Primary Care Provider Encounter Details Date Type Department Care Team (Latest Contact Info) Description 08/19/2003 Outpatient [facility] [address] [place] [address] [place] [address] [place] [address] PSYCHO EPI W/O MENTN INTRACTABLE (CMS/HCC) (Primary Dx) Social History Tobacco Use Types Packs/Day Years Used Date Smoking Tobacco: Never Assessed Comments Unknown Sex and Gender Information Value Date Recorded Sex Assigned at Not on file 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 [facility] [address] [place] [address] PCP - General 06/23/09 documented as of this encounter
--- OUTSIDE RECORDS SUMMARY | 2025-05-02 09:16 | XMS_ITS | Encounter Summary ---
Author Organization [facility] Address [address] [place] [address] Care Team Providers Care County Supervisor Name Role Phone Marilyn Trivedi APN Primary Care Provider Encounter Details Date Type Department Care Team (Latest Contact Info) Description 08/19/2003 Outpatient Historical [facility] Neurology [address], [address] [place] [address] [place] [address] [place] [address] PSYCHO EPI INTRACTABLE (CMS/HCC) (Primary Dx) Social History Tobacco Use Types Packs/Day Years Used Date Smoking Tobacco: Never Assessed Comments Unknown Sex and Gender Information Value Date Recorded Sex Assigned at Not on file 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 [facility] [address] [place] [address] PCP - General 06/23/09 documented as of this encounter
--- OUTSIDE RECORDS SUMMARY | 2025-05-02 09:16 | XMS_ITS | Encounter Summary ---
Author Organization [facility] Address [address] [place] [address] Care Team Providers Care Case Management Specialist Name Role Phone Marilyn Trivedi APN Primary Care Provider [phone] Encounter Details Date Type Department Care Team (Latest Contact Info) Description 10/01/2003 Outpatient Historical [facility] Neurology [address], [address] [place] [address] [place] [address] [place] [address] PSYCHO EPI W/O MENTN INTRACTABLE (CMS/HCC) (Primary Dx) Social History Tobacco Use Types Packs/Day Years Used Date Smoking Tobacco: Never Assessed Comments Unknown Sex and Gender Information Value Date Recorded Sex Assigned at Not on file 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 [address] PCP - General 06/23/09 documented as of this encounter
--- OUTSIDE RECORDS SUMMARY | 2025-05-02 09:16 | XMS_ITS | Encounter Summary ---
Author Organization [facility] Address [address] [place] [address] Care Team Providers Care Casino Floor Walker Name Role Phone Marilyn Trivedi APN Primary Care Provider [phone] Encounter Details Date Type Department Care Team (Latest Contact Info) Description 06/21/2004 Outpatient Historical [facility] Neurology [address] [place] [address], [address] [place] [address] Jorge Suero MD NO ADDRESS ON FILE GEN CONVUL EPI INTRACTABLE (CMS/HCC) (Primary Dx) Social History Tobacco Use Types Packs/Day Years Used Date Smoking Tobacco: Never Assessed Comments Unknown Sex and Gender Information Value Date Recorded Sex Assigned at Not on file Legal Sex Female 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 [address] PCP - General 06/23/09 documented as of this encounter
--- OUTSIDE RECORDS SUMMARY | 2025-05-02 09:16 | XMS_ITS | Encounter Summary ---
Author Organization [facility] Address [address] [place] [address] Care Team Providers Care Resident Programs Assistant Name Role Phone Marilyn Trivedi APN Primary Care Provider [phone] Encounter Details Date Type Department Care Team (Latest Contact Info) Description 01/18/2004 Outpatient Historical [facility] Neurology [address] [facility], [address] [place] [address] Jorge Suero MD NO ADDRESS ON FILE GEN CONVUL EPI W/O MENTN INTRACT (CMS/[facility]) (Primary Dx) Social History Tobacco Use Types Packs/Day Years Used Date Smoking Tobacco: Never Assessed Comments Unknown Sex and Gender Information Value Date Recorded Sex Assigned at Not on file 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 [facility] [address] [place] [address] PCP - General 06/23/09 documented as of this encounter
--- OUTSIDE RECORDS SUMMARY | 2025-05-02 09:16 | XMS_ITS | Encounter Summary ---
Author Organization [facility] Address [address] [place] [address] Care Team Providers Care Owner/Operator Name Role Phone Marilyn Trivedi APN Primary Care Provider [phone] Encounter Details Date Type Department Care Team (Latest Contact Info) Description 10/29/2003 Outpatient Historical [facility] [place] [place] Neurology [address] [facility], [address] [place] [address] [place] [address] [place] [address] PSYCHO EPI INTRACTABLE (CMS/HCC) (Primary Dx) Social History Tobacco Use Types Packs/Day Years Used Date Smoking Tobacco: Never Assessed Comments Unknown Sex and Gender Information Value Date Recorded Sex Assigned at Not on file 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 [facility] [address] [place] [address] PCP - General 06/23/09 documented as of this encounter
--- OUTSIDE RECORDS SUMMARY | 2025-05-02 09:17 | XMS_ITS | Encounter Summary ---
Author Organization [facility] Address [address] [place] [address] Care Team Providers Care Bulldogger Name Role Phone Marilyn Trivedi APN Primary Care Provider [phone] Encounter Details Date Type Department Care Team (Latest Contact Info) Description 11/10/2004 Outpatient [facility] [address], [address] [place] [address] Jorge Suero MD NO ADDRESS ON FILE GEN CONVUL EPI INTRACTABLE (CMS/HCC) (Primary Dx) Social History Tobacco Use Types Packs/Day Years Used Date Smoking Tobacco: Never Assessed Comments Unknown Sex and Gender Information Value Date Recorded Sex Assigned at Not on file 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 [address] PCP - General 06/23/09 documented as of this encounter
--- OUTSIDE RECORDS SUMMARY | 2025-05-02 09:17 | XMS_ITS | Encounter Summary ---
Author Organization [facility] Address [address] [place] [address] Care Team Providers Care Wirer Street Light Name Role Phone Marilyn Trivedi APN Primary Care Provider [phone] Encounter Details Date Type Department Care Team (Latest Contact Info) Description 01/16/2005 Outpatient [facility] [address] [place] [address], [address] [place] [address] Jorge Suero MD NO ADDRESS ON FILE PSYCHO EPI W/O MENTN INTRACTABLE (CMS/HCC) (Primary Dx); CEREBRAL PALSY NOS (CMS/HCC) Social History Tobacco Use Types Packs/Day Years Used Date Smoking Tobacco: Never Assessed Comments Unknown Sex and Gender Information Value Date Recorded Sex Assigned at Not on file 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 [facility] [address] [place] [address] PCP - General 06/23/09 documented as of this encounter
--- OUTSIDE RECORDS SUMMARY | 2025-05-02 09:17 | XMS_ITS | Clinical Summary ---
Author Organization [facility] Address [address] 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 Gender Identity Not on file Sexual [...] series) 2029 Medical Devices Implanted Type Area Oyster Culler Device Identifier Shelf Expiration Date Model / Serial / Lot Log [id number] - Acumed Locking Elbow / Clavicle Set - 1 - Plate Hook Lcp 3.5mm 3hl 02.113.103s Implanted:Qty: 1 on 06/24/2009 at [facility] Plate Right: Elbow SYNTHES STRATEC 02.113.103S / / LOAD # [id number] Log [id number] - Synthes 3.5 Lcp Distal Humerus & Elbow Plate Sys - 1 - Plate Lcp Hum Post/Lat/Dis 3.5mm 241.264 Implanted:Qty: 1 on 06/24/2009 at [facility] Plate Right: Elbow SYNTHES [employer]ATEC 241.264 / / LOAD# [id number] Log 83796 - Synthes 3.5 Lcp Distal Humerus & Elbow Plate Sys - 1 - Plate Dis Humer 7h Rt 241.286 Implanted:Qty: 1 on 06/24/2009 at [facility] Plate Right: Elbow SYNTHES [employer]ATEC 241.286 / / LOAD# [id number] Log 26408 - Synthes Small Frag Lcp Locking - 1 - Screw Lock Self Tap 3.5x24mm 212.108 Implanted:Qty: 1 on 06/24/2009 at [facility] Screw Right: Elbow SYNTHES [employer]ATEC 212.108 / / Log [id number] - Synthes Small Frag Lcp Locking - 1 - Screw Lock Self Tap 3.5x28mm 212.110 Implanted:Qty: 2 on 06/24/2009 at [facility] Screw Right: Elbow SYN[employer]ES [employer]ATEC 212.110 / / Log 64584 - Synthes 3.5 Lcp Distal Humerus & Elbow Plate Sys - 1 - Screw Lock 2.7x20mm 202.220 Implanted:Qty: 2 on 06/24/2009 at [facility] Screw Right: Elbow [employer]ES [employer]ATEC 202.220 / / LOAD# [id number] Log 81811 - Synthes 3.5 Lcp Distal Humerus & Elbow Plate Sys - 1 - Screw Lock 2.7x22mm 202.222 Implanted:Qty: 1 on 06/24/2009 at [facility] Screw Right: Elbow SYN[employer]ES [employer]ATEC 202.222 / / LOAD# [id number] Log 66169 - Synthes 3.5 Lcp Distal Humerus & Elbow Plate Sys - 1 - Screw Lock 2.7x24mm 202.224 Implanted:Qty: 1 on 06/24/2009 at [facility] Screw Right: Elbow SYN[employer]ES [employer]ATEC 202.224 / / LOAD# [id number] Log 21590 - Synthes 3.5 Lcp Distal Humerus & Elbow Plate Sys - 1 - Screw Lock 2.7x26mm 202.226 Implanted:Qty: 1 on 06/24/2009 at [facility] Screw Right: Elbow SYN[employer]ES [employer]ATEC 202.226 / / LOAD# [id number] Log 23000 - Synthes 3.5 Lcp Distal Humerus & Elbow Plate Sys - 1 - Screw Lock 2.7x30mm 202.230 Implanted:Qty: 1 on 06/24/2009 at [facility] Screw Right: Elbow SYNTHES STRATEC 202.230 / / LOAD# [id number] Log 37682 - Synthes Small Frag Lcp Locking - 1 - Screw Sami Self Tap 3.5x18mm 204.818 Implanted:Qty: 1 on 06/24/2009 at [facility] Screw Right: Elbow SYNTHES [employer]ATEC 204.818 / / Log 02594 - Synthes Small Frag Lcp Locking - 1 - Screw Sami Self Tap 3.5x20mm 204.820 Implanted:Qty: 4 on 06/24/2009 at [facility] Screw Right: Elbow SYNTHES [employer]ATEC 204.820 / / Log 21541 - Synthes Small Frag Lcp Locking - 1 - Screw Sami Self Tap 3.5x22mm 204.822 Implanted:Qty: 1 on 06/24/2009 at [facility] Screw Right: Elbow SYNTHES [employer]ATEC 204.822 / / Log 05565 - Synthes Small Frag Lcp Locking - 1 - Screw Sami Self Tap 3.5x26mm 204.826 Implanted:Qty: 1 on 06/24/2009 at [facility] Screw Right: Elbow SYNTHES [employer]ATEC 204.826 / / Log [id number] - Synthes Small Frag Lcp Locking - 1 - Screw Sami Self Tap 3.5x38mm 204.838 Implanted:Qty: 1 on 06/24/2009 at [facility] Screw Right: Elbow SYNTHES STRATEC 204.838 / / Log [id number] - Synthes Small Frag Lcp Locking - 1 - Screw Lock Self Tap 3.5x20mm 212.106 Implanted:Qty: 3 on 06/24/2009 at [facility] Screw Right: Elbow SYNTHES STRATEC 212.106 / / Insurance MEDICARE PART A AND B [place] Advance Directives For more information, please contact: [phone] * Full Code (Latest Code Status on File) Date Activated Date Inactivated Comments 06/24/2009 6:43 PM 06/27/2009 2:27 PM * Full Code Date Activated Date Inactivated Comments 06/24/2009 2:31 PM 06/24/2009 6:43 PM * Full Code Date Activated Date Inactivated Comments 06/24/2009 1:39 PM 06/24/2009 2:31 PM * Full Code Date Activated Date Inactivated Comments 06/23/2009 4:13 PM 06/24/2009 1:39 PM Care Teams Ocular Care Technician Relationship Specialty Start Date End Date Marilyn Trivedi APN [facility] [address] [address] PCP - General 06/23/09
--- OUTSIDE RECORDS SUMMARY | 2025-05-02 09:17 | XMS_ITS | Encounter Summary ---
Author Organization [facility] Address [address] [place] [address] Care Team Providers Care School Lunch Manager Name Role Phone Marilyn Trivedi APN Primary Care Provider [phone] Encounter Details Date Type Department Care Team (Latest Contact Info) Description 09/06/2004 Outpatient Historical [facility] Neurology [address], [address] [place] [address] Jorge Suero MD NO ADDRESS ON FILE GEN CONVUL EPI W/O MENTN INTRACT (CMS/[facility]) (Primary Dx) Social History Tobacco Use Types Packs/Day Years Used Date Smoking Tobacco: Never Assessed Comments Unknown Sex and Gender Information Value Date Recorded Sex Assigned at Not on file 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 [facility] [address] [place] [address] PCP - General 06/23/09 documented as of this encounter
--- OUTSIDE RECORDS SUMMARY | 2025-05-02 09:17 | XMS_ITS | Encounter Summary ---
Author Organization [facility] Address [address] [place] [address] Care Team Providers Care Supervisor Orchard Name Role Phone Marilyn Trivedi APN Primary Care Provider Encounter Details Date Type Department Care Team (Latest Contact Info) Description 09/27/2004 Outpatient Historical [facility] [address] [place] [address], [address] [place] [address] Jorge Suero MD NO ADDRESS ON FILE GEN CONVUL EPI INTRACTABLE (CMS/HCC) (Primary Dx) Social History Tobacco Use Types Packs/Day Years Used Date Smoking Tobacco: Never Assessed Comments Unknown Sex and Gender Information Value Date Recorded Sex Assigned at Not on file 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 [address] PCP - General 06/23/09 documented as of this encounter
--- OUTSIDE RECORDS SUMMARY | 2025-05-02 09:18 | XMS_ITS | Encounter Summary ---
Author Organization [facility] Address [address] [place] [address] Care Team Providers Care Industrial Relations Specialist Name Role Phone Marilyn Trivedi APN Primary Care Provider Encounter Details Date Type Department Care Team (Latest Contact Info) Description 01/04/2003 Outpatient Historical [facility] Gordo Glaser MD NO ADDRESS ON FILE EPILEPSY NOS INTRACTABLE (CMS/HCC) (Primary Dx) Social History Tobacco Use Types Packs/Day Years Used Date Smoking Tobacco: Never Assessed Comments Unknown Sex and Gender Information Value Date Recorded Sex Assigned at Not on file 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
--- OUTSIDE RECORDS SUMMARY | 2025-05-02 09:18 | XMS_ITS | Encounter Summary ---
Author Organization [facility] Address [address] [place] [address] Care Team Providers Care Director Of Human Resources Name Role Phone Marilyn Trivedi APN Primary Care Provider [phone] Encounter Details Date Type Department Care Team (Latest Contact Info) Description 06/10/2003 Outpatient Historical [facility] [address], [address] [place] [address] [place] [address] [place] [address] PSYCHO EPI INTRACTABLE (CMS/HCC) (Primary Dx) Social History Tobacco Use Types Packs/Day Years Used Date Smoking Tobacco: Never Assessed Comments Unknown Sex and Gender Information Value Date Recorded Sex Assigned at Not on file 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 [facility] [address] [place] [address] PCP - General 06/23/09 documented as of this encounter
--- OUTSIDE RECORDS SUMMARY | 2025-05-02 09:18 | XMS_ITS | Encounter Summary ---
Author Organization [facility] Address [address] [place] [address] Care Team Providers Care Emergency Communications Officer Name Role Phone Marilyn Trivedi APN Primary Care Provider [phone] Encounter Details Date Type Department Care Team (Latest Contact Info) Description 03/19/[address] 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 [address] PCP - General 06/23/09 documented as of this encounter
--- OUTSIDE RECORDS SUMMARY | 2025-05-02 09:18 | XMS_ITS | Encounter Summary ---
Author Organization [facility] Address [address] [place] [address] Care Team Providers Care Dye Winch Operator Name Role Phone Marilyn Trivedi APN Primary Care Provider [phone] Encounter Details Date Type Department Care Team (Latest Contact Info) Description 02/12/2006 Outpatient Historical [facility] [address] [facility], [address] [place] [address] Jorge Suero MD NO ADDRESS ON FILE Grand Mal, not Intractabl ([facility]/HCC) (Primary Dx); Common Migraine without Mention of Intractable Migraine Social History Tobacco Use Types Packs/Day Years Used Date Smoking Tobacco: Never Assessed Comments Unknown Sex and Gender Information Value Date Recorded Sex Assigned at Not on file 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 [facility] [address] [place] [address] PCP - General 06/23/09 documented as of this encounter
--- OUTSIDE RECORDS SUMMARY | 2025-05-02 09:18 | XMS_ITS | Encounter Summary ---
Author Organization [facility] Address [address] [facility] [place] [address] Care Team Providers Care Project Development Engineer Name Role Phone Marilyn Trivedi APN Primary Care Provider [phone] Encounter Details Date Type Department Care Team (Latest Contact Info) Description 05/17/2003 Outpatient Historical [facility] Gordo Glaser MD NO ADDRESS ON FILE PSYCHO EPI INTRACTABLE (CMS/HCC) (Primary Dx) Social History Tobacco Use Types Packs/Day Years Used Date Smoking Tobacco: Never Assessed Comments Unknown Sex and Gender Information Value Date Recorded Sex Assigned at Not on file 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
--- OUTSIDE RECORDS SUMMARY | 2025-05-02 09:18 | XMS_ITS | Patient Health Record ---
Author Organization [facility] Address [address] [place] [address] Care Team Providers Care Sanitation Officer Name Role Phone Trivedi, Marilyn Primary Care Provider TRIVEDI MARILYN Unavailable Unavailable January Disla Unavailable [phone] Allergies Allergen (clinical drug ingredient) Drug/Non Drug Allergy documented on EMR Reaction Allergy Type Onset Date Status levofloxacin levoFLOXacin rash Drug Allergy A ctive vancomycin Vancomycin HCl rash Drug Allergy A ctive Influenza A (H1N1) Monoval Vac Unknown Drug Allergy Active aspirin Aspirin Unknown Drug Allergy Active Results Component Value Reference Range Flag Notes CBC w\ Auto Diff 85623 (Not yet reviewed by provider) Interpretation: Performing Lab: Notes/Report: Diagnosis Description: Other mcc (current) drug therapy WBC 13.2 4.5-11.0 X10'3 [...] HI Lymph Auto% 10.8 22.0-44.0 % LOW Citrus Auto% 7.0 3.0-7.0 % Eos Auto% 2.2 2.0-4.0 % Baso Auto% 0.4 0.0-1.0 % Imm Gran% .8 .0-.4 % HI Neutro Abs 10.42 .80-7.70 HI Absolute Neutrophil Count 74034 NA Lymph Abs 1.43 .10-4.10 Citrus Abs .92 .20-1.00 Eos Abs .29 .00-.40 Baso Abs .05 .00-.20 Imm Gran Abs .11 .00-.10 HI NRBC# .00 .00-.20 X10'3 NRBC% .00 .00-.20 /100 intact WBC's Comprehensive Metabolic Pane l (CMP) 14714 (Not yet reviewed by provider) Interpretation: Performing Lab: Notes/Report: Diagnosis Description: Other oysterman (current) drug therapy Glucose Serum 120 71-110 MG/DL HI Testing p erformed at [facility], [address] [place] [address] [place] [address]. CLIA ID#: [id number] BUN 6 7-21 MG/DL LOW Creat .59 .51-1.17 MG/DL P-rhijbe-n-benzoquinon e imine (NAPQI) is a metabolite of [...] UNIT/L Osmo Serum,Calculated 301 280-300 MOSM/KG HI Culture Stool 37955, 55718, 86470, 61043, 25790 Reviewed date:08/14/2024 11:39:11 AM Interpretation: Performing Lab: Notes/Report: Culture Stool LESLEE Sarmiento Culture Stool t: Culture Stool Culture Stool Accessio [id number] Culture Stool n: Culture Stool Microbiology Culture [...] Culture Stool O1: Culture Stool (Culture Stool 70215, 97963, 22078, 60981, 38057) Culture Stool Diagnosis Description: Diarrhea, unspecified C Diff Toxin EIA--35977 Reviewed date:08/13/2024 05:38:24 PM Interpretation: Performing Lab: Notes/Report: CDiff Toxin EIA LESLEE Sarmiento CDiff Toxin EIA t: CDiff Toxin EIA CDiff Toxin EIA Accessio [id number] CDiff Toxin EIA n: CDiff Toxin EIA [...] Toxin EIA called to Holli Bach at [place] [facility] 08/12/2024 10:36:28 /dep/rbv CDiff Toxin EIA [...] result should be based on clinical symptoms. Zonisamide Quant (B) 69121 Reviewed date:01/18/2025 11:43:31 AM Interpretation:Normal Performing Lab: Notes/Report: Diagnosis Description: Epilepsy, unspecified, not intractable, without status epilepticus Zonisamide Quantitative 20 10-40 NA INTERPRETIVE INFORMATION: Zonisamide Therapeutic range: Not well established. Toxic: Greater than 80 ug/mL The proposed therapeutic range for seizure control is 10-40 ug/mL. Toxic concentrations may cause coma, seizures and cardiac abnormalities. Pharmacokinetics varies widely, particularly with co-medications and/or compromised renal function. Performed By: [employer] [address] [place] [address] Parts Interpreter: Yusef Guillermo MD, PhD CLIA Number: [id number] [employer], [place] - [address] Reviewed date:10/09/2024 11:45:09 AM Interpretation: Performing Lab: Notes/Report: Color nella Clarity cloudy Glucose neg Bili +3 Ketones +5 Sp [place] 1.020 Blood neg pH 6.0 Protein neg Urobili +2 Nitrites positive Leukocytes +3 CDiff PCR Rfx C diff Toxin N AP/EPI 18583, 11921 Reviewed date:08/13/2024 05:38:36 PM Interpretation: Performing Lab: Notes/Report: Diagnosis Description: Enterocolitis due to Clostridium difficile, not specified as recurrent CDiff PCR Reflex POSITIVE ABN called to Holli Bach at [place] [facility] 08/12/2024 10:36:28 /dep/rbv A positive result by PCR indicates the presence of Clostridium difficile bacteria that is capable of producing toxin. It does not indicate toxin production; treatment should be based on clinical symptoms. Toxin testing will be performed on PCR positive results. CDiff/Epi--28459 Reviewed date:08/13/2024 05:39:03 PM Interpretation: Performing Lab: Notes/Report: CDiff/Epi LESLEE Sarmiento CDiff/Epi t: CDiff/Epi CDiff/Epi Accessio [id number] CDiff/Epi n: CDiff/Epi Microbiology CDiff/Epi PROCEDURE: CDiff/Epi [...] will be performed on PCR positive results. Rapid Strep (Strep A) -[id number] Reviewed date:03/18/2025 11:33:50 AM Interpretation: Performing Lab: Notes/Report: Strep positive Urinalysis--76006 Reviewed date:05/14/2024 02:40:53 PM Interpretation: Performing Lab: Notes/Report: Specific gravity UA 1.010 Urine Nitrite positive Color UA orange Urine Blood negative Clarity UA cloudy Urine pH 6.0 Urine Glucose negative Urine Leukocyte 1+ Urine Protein negative Urine Bilirubin negative Urine Ketone negative Urobilinogen negative UA W/O Microscopic 63530 Reviewed date:11/25/2024 11:39:01 AM Interpretation: Performing Lab: Notes/Report: Color UA orange Clarity UA clear Specific gravity UA 1.020 Urine pH 6.0 Urine Glucose negative Urine Bilirubin negative Urine Ketone negative Urine Blood negative Urine Protein negative Urobilinogen negative Urine Nitrite positive Urine Leukocyte 1+ Zonisamide Quant (B) 02110 Reviewed date:01/18/2025 11:43:31 AM Interpretation:Normal Performing Lab: Notes/Report: Diagnosis Description: Other mcc (current) drug therapy Zonisamide Quantitative 23 10-40 NA INTERPRETIVE INFORMATION: Zonisamide Therapeutic range: Not well established. Toxic: Greater than 80 ug/mL The proposed therapeutic range for seizure control is 10-40 ug/mL. Toxic concentrations may cause coma, seizures and cardiac abnormalities. Pharmacokinetics varies widely, particularly with co-medications and/or compromised renal function. Performed By: [employer] [address] [place] [address] Parts Interpreter: Yusef Guillermo MD, PhD CLIA Number: [id number] COVID-19 RAPID - [id number] Reviewed date:02/22/2025 03:56:08 PM Interpretation: Performing Lab: Notes/Report: COVID19 negative RA Factor 60871, 16229 Reviewed date:01/12/2025 06:35:22 PM Interpretation:High Performing Lab: Notes/Report: Diagnosis Description: Rheumatoid arthritis with rheumatoid factor of multiple sites without organ or systems involvement RA Factor 261.4 .0-14.0 IU/mL HI Result less than 10 Iu/ml will be considered as Negative. Thyroid Stimulating Hormone (TSH) 73131 Reviewed date:01/12/2025 06:35:22 PM Interpretation:Normal Performing Lab: Notes/Report: Diagnosis Description: Other mcc (current) drug therapy TSH .939 .358-3.740 MlU/ML Phenytoin (B) Total 50923 Reviewed date:01/12/2025 06:35:22 PM Interpretation:Normal Performing Lab: Notes/Report: Diagnosis Description: Other mcc (current) drug therapy Phenytoin 21.0 10.0-20.0 MCG/ML HI Lipid Panel Reflex DLDL 8006 1, 80941 Reviewed date:01/12/2025 06:35:22 PM Interpretation:Normal Performing Lab: Notes/Report: Diagnosis Description: Other mcc (current) drug therapy Trig 173 NA Classification Guidelines:Triglyceride s Adults: >20yrs Desirable <150 Borderline High 150-199 High 200-499 Very high >=500 Children: Male 0-4 yr 22-99 5-9 yr 30-101 10-14 yr 32-125 15-19 yr 37-148 Children: Female 0-4 yr 34-112 5-9 yr 32-105 10-14 yr 37-131 15-19 yr 39-132 Chol 172 <=200 MG/DL HDL 49 39-96 MG/DL Reference Ranges:HDL Male: 5-9y 38-75 10-14y 37-74 15-19y 30-63 >=20y 40-59 Female: 5-9y 36-73 10-14y 37-70 15-19y 35-74 >=20y 40-59 CH/HDL 3.5 0.0-4.9 RATIO LDL 88 0-130 MG/DL LDL result is inaccurate , if Trig is >400 mg/dl. See DLDL result. Comprehensive Metabolic Pane l (CMP) 73765 Reviewed date:01/12/2025 06:35:22 PM Interpretation:Normal Performing Lab: Notes/Report: Diagnosis Description: Other oysterman (current) drug therapy Glucose Serum 102 71-110 MG/DL Testing p erformed at [facility], [address] [place] [address] [place] [address]. CLIA ID#: [id number] BUN 14 7-21 MG/DL Creat .73 .51-1.17 MG/DL C-rmwgdd-x-benzoquinon e imine (NAPQI) is a metabolite of [...] the potential for falsely depressed results. GFR 87.9 NA Calculation pe rformed from [...] 293 280-300 MOSM/KG CBC w\ Auto Diff 03378 Reviewed date:01/12/2025 06:35:22 PM Interpretation:Abnormal Performing Lab: Notes/Report: Diagnosis Description: Other oysterman (current) drug therapy WBC 7.3 4.5-11.0 X10'3 RBC 3.36 4.00-5.20 X10'6 LOW Hgb 11.5 12.0-16.0 G/DL LOW Hct 38.3 36.0-46.0 % MCV 114.0 80.0-100.0 FL HI MCH 34.2 27.0-31.0 PG HI MCHC 30.0 31.0-37.0 G/DL LOW Platelet 270 150-400 X10'3 RDW-SD 55.2 35.0-49.0 FL HI RDW-CV 13.1 12.2-15.6 % MPV 10.1 9.2-12.0 FL Neutro Auto% 62.0 40.0-70.0 % Lymph Auto% 25.3 22.0-44.0 % Citrus Auto% 7.9 3.0-7.0 % HI Eos Auto% 4.2 2.0-4.0 % HI Baso Auto% 0.5 0.0-1.0 % Imm Gran% .1 .0-.4 % Neutro Abs 4.52 .80-7.70 Absolute Neutrophil Count 4520 NA Lymph Abs 1.85 .10-4.10 Citrus Abs .58 .20-1.00 Eos Abs .31 .00-.40 Baso Abs .04 .00-.20 Imm Gran Abs .01 .00-.10 NRBC# .00 .00-.20 X10'3 NRBC% .00 .00-.20 /100 intact WBC's Reason For Referral No Information Medications Medication SIG (Take, Route, Frequency, Duration) Notes Start Date End Date Status Montelukast Sodium 10 mg Tablet TAKE ONE TABLET BY MOUTH EVERY DAY; Duration: 30 Active Gas Relief Extra Strength 125 mg Capsule TAKE ONE CAPSULE BY MOUTH EVERY 8 HOURS NEEDED FOR GASTRITIS OR STOMACH; Duration: 10 Active Nitrofurantoin Macrocrystal 100 mg Capsule TAKE ONE CAPSULE BY MOUTH EVERY DAY FOR 30 DAYS FOR UTI SYMPTOMS; Duration: 30 Active Mupirocin 2 % Ointment APPLY EXTERNALLY TWICE DAILY TO WOUND UNTIL CLEAR; Duration: 30 Active Vitamin B Complex - Tablet as directed Orally once a day; Duration: 30 days Active clonazePAM 0.25 MG Tablet Disintegrating TAKE ONE TABLET BY MOUTH TWICE DAILY FOR SEIZURES Oral; Duration: 30 Days Active Acetaminophen 325 mg Tablet TAKE TWO TABLETS BY MOUTH EVERY 6 HOURS NEEDED FOR PAIN OR FEVER >100; Duration: 30 Active Benzonatate 100 MG Capsule 1 capsule as needed Orally Three times a day; Duration: 30 days 04/15/2025 05/15/2025 Active Budesonide-Formoterol Fumarate 80-4.5 MCG/ACT Aerosol INHALE TWO PUFFS BY MOUTH TWICE DAILY FOR 30 DAYS.; Duration: 30 Active Tamsulosin HCl 0.4 mg Capsule TAKE ONE CAPSULE BY MOUTH EVERY MORNING AND EVERY EVENING. FOR BLADDER; Duration: 60 Active Pantoprazole Sodium 40 mg Tablet Delayed Release TAKE ONE TABLET BY MOUTH EVERY DAY FOR STOMACH.; Duration: 30 Active Cyanocobalamin 1000 MCG/ML Solution INJECT 1ML INTRAMUSCULARLY MONTHLY; Duration: 90 Active Ventolin HFA 108 (90 Base) MCG/ACT Aerosol Solution INHALE TWO PUFFS with spacer BY MOUTH FOUR TIMES DAILY NEEDED SHAKE WELL 4 times a day prn; Duration: 25 days spacer Active Ondansetron HCl 4 mg Tablet TAKE ONE TABLET BY MOUTH EVERY 4 HOURS NEEDED FOR NAUSEA AND FOR VOMITING; Duration: 3 Active Vimpat 150 mg Tablet TAKE ONE TABLET BY MOUTH TWICE DAILY; Duration: 12 04/02/2025 Active Anti-Diarrheal 2 mg Tablet TAKE ONE TABLET BY MOUTH FOUR TIMES DAILY NEEDED FOR DIARRHEA FOR 30 DAYS; Duration: 30 Active FLUoxetine HCl 20 mg Capsule TAKE ONE CAPSULE BY MOUTH EVERY DAY AT NOON FOR mood/anxiety; Duration: 30 Active Zonegran 100 mg Capsule TAKE ONE CAPSULE BY MOUTH TWICE DAILY FOR seizures.; Duration: 30 Active Polyethylene Glycol 3350 17 GM/SCOOP Powder MIX ONE SCOOP WITH EIGHT OUNCES of FLUID DIRECTED AND drink BY MOUTH every other DAY FOR 30 DAYS; Duration: 30 Active Fluticasone Propionate HFA 220 MCG/ACT Aerosol INHALE 1 PUFF BY MOUTH TWICE DAILY (shake WELL). FOR breathing/asthma; Duration: 30 Active Clotrimazole-Betamethason e 1-0.05 % Cream 1 application Externally Twice a day; Duration: 30 days 04/30/2025 07/29/2025 Active Diflucan 150 MG Tablet 1 tablet po q day Orally; Duration: 3 days 04/30/2025 05/06/2025 Active Promethazine-DM 6.25-15 MG/5ML Syrup take 5mL BY MOUTH EVERY 4 HOURS NEEDED FOR evening cough FOR 30 DAYS; Duration: 30 Active FT Mucus Relief 12HR 600 mg Tablet Extended Release 12 Hour TAKE ONE TABLET BY MOUTH TWICE DAILY FOR 30 DAYS; Duration: 30 Active Acidophilus Probiotic 0.5 MG Tablet TAKE DIRECTED ONCE DAILY; Duration: 90 Active Phenazopyridine HCl 100 mg Tablet TAKE TWO TABLETS BY MOUTH TWICE DAILY FOR URINARY RETENTION FOR 30 DAYS; Duration: 30 Active Sucralfate 1 GM/10ML Suspension TAKE 10ML BY MOUTH ON AN EMPTY STOMACH TWICE DAILY. (REPLACES SUCRALFATE TABS) FOR stomach; Duration: 30 Active Dilantin Infatabs 50 mg Tablet Chewable TAKE ONE TABLET BY MOUTH THREE TIMES DAILY; Duration: 30 Active Maxitrol 3.5-48761-6.1 Ointment 1 application into the lower eyelid of affected eye Ophthalmic Three times a day; Duration: 7 days 11/16/2024 Active Triamcinolone Acetonide 0.1 % Cream APPLY TO THE AFFECTED AREA(S) NEEDED TO RASH.; Duration: 10 Active levETIRAcetam 500 mg Tablet TAKE TWO TABLETS BY MOUTH EVERY TWELVE HOURS FOR seizures FOR 30 DAYS; Duration: 30 Active Fluticasone Propionate 50 MCG/ACT Suspension use one spray into each nostril every day (shake well).; Duration: 30 Active SM Tussin DM Max 20-400 MG/20ML Liquid TAKE TWO TEASPOONFULS BY MOUTH TWICE DAILY NEEDED FOR DAYTIME COUGH.; Duration: 15 Active Cefdinir 300 MG Capsule Oral; Duration: 14 Days Active FLUoxetine HCl 10 mg Capsule TAKE ONE CAPSULE BY MOUTH ONCE A DAY AT NOON (IN ADDITION TO 20 MG) FOR 30 DAYS. (FOR depression); Duration: 30 Active diazePAM 10 MG Gel INSERT 5MG RECTALLY FOR SEIZURE LASTING MORE THAN 10 MINUTES; MAY REPEAT NEEDED DIRECTED.; Duration: 1 06/08/2024 Active Diclofenac Sodium 1 % Gel apply FOUR gra ms of gel FOUR TIMES DAILY TO affected joint NEEDED; Duration: 10 Active Systane Ultra 0.4-0.3 % Solution instill one drop in each eye three times daily.(for dry eyes); Duration: 30 Active Thick-It - Powder USES DIRECTED.; Duration: 30 Active Folic Acid 1 mg Tablet TAKE ONE TABLET B Y MOUTH EVERY DAY FOR folic acid deficiency; Duration: 30 Active busPIRone HCl 10 mg Tablet TAKE ONE TABLET BY MOUTH THREE TIMES DAILY FOR ANXIETY FOR 30 DAYS; Duration: 30 Active Famotidine 20 mg Tablet TAKE ONE TABLET BY MOUTH TWICE DAILY FOR stomach; Duration: 30 Active Daily-Len Multivitamin - Tablet TAKE ONE TABLET BY MOUTH EVERY DAY (100 DAYS); Duration: 100 Active Clotrimazole 1 % Cream apply externally TWICE DAILY NEEDED FOR rash; Duration: 30 Active predniSONE 5 mg Tablet TAKE ONE TABLET B Y MOUTH EVERY DAY FOR arthritis; Duration: 30 Active Immunizations Vaccine Route Administration [...] Status Risk Notes Problem Slow transit constipation (10999100) Slow transit constipation (K59.01) Active confirmed Problem Rheumatoid arthritis (15715222) Rheumatoid arthritis, unspecified (M06.9) Active confirmed Problem Acquired deformity of right hand (disorder) (326474257) Unspecified acquired deformity of hand, right hand (M21.941) Active confirmed Problem Acquired deformity of left hand (disorder) (623133825) Unspecified acquired deformity of hand, left hand (M21.942) Active confirmed Problem Pain in limb (84535236) Pain in right hand (M79.641) Active confirmed Problem Pain in limb (02786148) Pain in left hand (M79.642) Active confirmed Problem Acute cystitis (60005310) Acute cystitis with hematuria (N30.01) Active confirmed Problem Dysuria (25863858) Dysuria (R30.0) Active confi rmed Problem Abnormal weight loss (334293082) Abnormal weight loss (R63.4) Active confirmed Problem Therapeutic drug monitoring, quantitative (regime/therapy) (66808654) Encounter for therapeutic drug level monitoring (Z51.81) Active confirmed Problem Reduced mobility (4628564) Other reduced mobility (Z74.09) Active confirmed Problem Long-term current use of drug therapy (254450935) Other mcc (current) drug therapy (Z79.899) Active confirmed Problem Dependence on supplemental oxygen (659378469141) Dependence on supplemental oxygen (Z99.81) Active confirmed Problem Hand joint pain (257470352) Pain in joints of right hand (M25.541) Active confirmed Problem Hand joint pain (297639210) Pain in joints of left hand (M25.542) Active confirmed Problem Bronchitis (34491994) Bronchitis (J40) Active confirmed Problem Anxiety (27075937) Anxiety (F41.9) Active confi rmed Problem Rheumatoid arthritis (09626279) Rheumatoid arthritis flare (M06.9) Active confirmed Problem Acute pain of right knee (M25.561) Active confirmed Problem Urinary retention (926782110) Urinary retention (R33.9) Active confirmed Problem Hyperlipidaemia (22390463) Hyperlipidemia, unspecified hyperlipidemia type (E78.5) Active confirmed Problem Dependence on wheelchair (120632703) Wheelchair bound (Z99.3) Active confirmed Problem Urinary tract infectious disease (68241282) Chronic UTI (N39.0) Active confirmed Problem Dysphagia (31364640) Dysphagia, unspecified type (R13.10) Active confirmed Problem Constipation (83691868) Constipation (K59.00) Active confirmed Problem Rheumatoid arthritis (30948366) Rheumatoid arthritis involving multiple sites with positive rheumatoid factor (M05.79) Active confirmed Problem Annual health maintenance examination (77040199) Annual physical exam (Z00.00) Active confirmed Problem Depression (590034596) Other depression (F32.89) Active confirmed Problem Cystitis (36669502) Cystitis (N30.90) Active co nfirmed Problem Seizure disorder (996157576) Seizure disorder (G40.909) Active confirmed Problem Dry eyes (568677050) Dry eyes (H04.123) Active confirmed Problem Gastroesophageal reflux disease (453069742) GERD (gastroesophageal reflux disease) (K21.9) Active confirmed Problem Environmental allergy (802540116) Environmental allergies (Z91.09) Active confirmed Problem Disorder of brain (81754602) Acute encephalopathy (G93.40) Active confirmed Problem Abnormal gait (25065882) Decreased mobility (R26.89) Active confirmed Problem Rheumatoid arthritis (60080079) Rheumatoid arthritis, involving unspecified site, unspecified whether rheumatoid factor present (M06.9) Active confirmed Problem Indwelling urinary catheter, device (physical object) (24561969) Indwelling catheter present on admission (Z96.0) Active confirmed Problem Fracture of righ t patella with routine healing (S82.001D) Active confirmed Vital Signs Heart Rate 88 /min 04/30/2025 Temperature 97.0 degrees Fahrenheit 04/30/2025 Respiratory Rate 18 /min 04/30/2025 Oximetry 94 % 04/30/2025 Blood pressure diastolic 76 mm Hg 04/30/2025 Height-cm 144.78 cm 04/30/2025 Weight-kg 54.89 kg 04/30/2025 Height 57 in 04/30/2025 Blood pressure systolic 130 mm Hg 04/30/2025 Weight 121 lbs 04/30/2025 BMI 26.18 kg/m2 04/30/2025 Encounters Encounter Location Date Provider Diagnosis [facility] [address] [address] 02/16/2025 Marilyn Trivedi Encounter for Medicare annual wellness exam Z00.00 ; Seizure disorder G40.909 ; B12 deficiency E53.8 ; Rheumatoid arthritis involving multiple sites with positive rheumatoid factor M05.79 and Depression screening Z13.31 [facility] [address] [address] 03/18/2025 Marilyn Trivedi Sore throat J02.9 ; B12 deficiency E53.8 ; Seizure disorder G40.909 ; Rheumatoid arthritis involving multiple sites with positive rheumatoid factor M05.79 ; Strep pharyngitis J02.0 and Encounter for immunization Z23 [facility] [address] [place] [address] 01/19/2025 Marilyn Trivedi Seizure disorder G40.909 ; B12 deficiency E53.8 and Rheumatoid arthritis involving multiple sites with positive rheumatoid factor M05.79 [facility] [address] [address] 12/24/2024 Marilyn Trivedi Seizure disorder G40.909 ; B12 deficiency E53.8 ; Rheumatoid arthritis involving multiple sites with positive rheumatoid factor M05.79 and Pain in joints of left hand M25.542 [facility] [address] [address] 11/16/2024 Marilyn Trivedi Bronchitis J40 ; Cough R05.9 ; Conjunctivitis H10.9 ; Seizure disorder G40.909 ; B12 deficiency E53.8 ; Rheumatoid arthritis involving multiple sites with positive rheumatoid factor M05.79 and Joint pain M25.50 [facility] [address] [place] [address] 10/15/2024 Marilyn Trivedi Seizure disorder G40.909 ; B12 deficiency E53.8 and Rheumatoid arthritis involving multiple sites with positive rheumatoid factor M05.79 [facility] [address] [place] [address] 09/15/2024 Marilyn Trivedi Seizure disorder G40.909 ; Rheumatoid arthritis involving multiple sites with positive rheumatoid factor M05.79 ; B12 deficiency E53.8 and Open wound T14.8XXA [facility] [address] [place] [address] 08/25/2024 Marilyn Trivedi Open wound T14.8XXA and Rash R21 [facility] [address] [place] [address] 07/27/2024 Marilyn Trivedi Bronchitis J40 [facility] [address] [place] [address] 06/23/2024 Marilyn Trivedi Seizure disorder G40.909 ; Rheumatoid arthritis involving multiple sites with positive rheumatoid factor M05.79 and B12 deficiency E53.8 [facility] [address] [place] [address] 05/26/2024 Marilyn Trivedi Seizure disorder G40.909 ; Rheumatoid arthritis involving multiple sites with positive rheumatoid factor M05.79 and B12 deficiency E53.8 [facility] [address] [place] [address] 08/20/2024 Marilyn Trivedi Seizure disorder G40.909 ; Rheumatoid arthritis involving multiple sites with positive rheumatoid factor M05.79 ; B12 deficiency E53.8 ; C. difficile diarrhea A04.72 and Hospital discharge follow-up Z09 [facility] [address] [place] [address] 07/20/2024 Marilyn Trivedi Seizure disorder G40.909 ; Pneumonia J18.9 ; Rheumatoid arthritis involving multiple sites with positive rheumatoid factor M05.79 and B12 deficiency E53.8 [facility] [address] [place] [address] 11/25/2024 January Disla Urinary tract infection, site not specified N39.0 [facility] [address] [facility] [address] [place] [address] 10/09/2024 Marilyn Trivedi Urinary retention R33.9 [facility] [address] [place] [address] 08/11/2024 Marilyn Trivedi Diarrhea R19.7 [facility] [place] [facility] [address] [place] [address] 01/11/2025 Marilyn Trivedi Seizure disorder G40.909 ; Rheumatoid arthritis involving multiple sites with positive rheumatoid factor M05.79 ; Urinary retention R33.9 ; Decreased mobility R26.89 ; Other oysterman (current) drug therapy Z79.899 ; Anxiety F41.9 ; Tremor R25.1 and Depression screening Z13.31 [facility] [place] [facility] [address] [facility] [address] 04/30/2025 Marilyn Trivedi Rash R21 ; Candidiasis B37.9 ; Hospital discharge follow-up Z51.89 ; B12 deficiency E53.8 ; Seizure disorder G40.909 ; Rheumatoid arthritis involving multiple sites with positive rheumatoid factor M05.79 and Drug therapy continued Z79.899 [facility] [address] [place] [address] 01/12/2025 [facility] Seizure disorder G40.909 [facility] [address] [place] [address] 05/14/2024 [facility] Urinary tract infection, site not specified N39.0 [facility] [address] [place] [address] 07/27/2024 Mar[facility]rivedi [facility] [address] [place] [address] 07/14/2024 Mar[facility] Trivedi [facility] [address] [place] [address] 07/08/2024 Mar[facility] Trivedi [facility] [address] [place] [address] 06/04/2024 Marilyn Trivedi [facility] [place] [address] [place] [address] 04/27/2025 Marilyn Trivedi [facility] [place] [address] [place] [address] 04/15/2025 Marilyn Trivedi Cough R05.9 [facility] [place] [address] [place] [address] 03/11/2025 [facility] Conjunctivitis H10.9 [facility] [place] [address] [place] [address] 11/24/2024 [facility] [place] [address] [place] [address] 11/17/2024 [facility] [place] [address] [place] [address] 11/17/2024 [facility] [place] [address] [place] [address] 11/02/2024 [facility] [place] 10/16/2024 [facility] [place] [address] [place] [address] 10/15/2024 [facility] [place] [address] [place] [address] 10/12/2024 [facility] [place] [address] [place] [address] 09/21/2024 [facility] [place] [address] [place] [address] 09/11/2024 [facility] Open wound T14.8XXA [facility] [place] [address] [place] [address] 08/24/2024 [facility] [place] [address] [place] [address] 08/17/2024 [facility] [place] [address] [place] [address] 08/13/2024 [facility] [place] [address] [place] [address] 08/12/2024 [facility] C. difficile diarrhe a A04.72 [facility] [place] [address] [place] [address] 08/11/2024 [facility] Diarrhea R19.7 Assessments Encounter Date Diagnosis (ICD Code) Assessment Notes Treatment Notes Treatment Clinical Notes Section Notes 07/20/2024 Pneumonia (ICD-10 - J18.9) add spacer to ventalin rocephin 1 gram im cipro depomedrol/deca dron im 07/20/2024 Seizure disorder (ICD-10 - G40.909) continue meds 08/11/2024 Diarrhea (ICD-10 - R19.7) 08/11/2024 Diarrhea (ICD-10 - R19.7) 04/30/2025 Rash (ICD-10 - R21) lotrisone 04/30/2025 Candidiasis (ICD-10 - B37.9) diflucan 06/23/2024 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) ra 01/11/2025 Seizure disorder (ICD-10 - G40.909) continue meds 12/24/2024 B12 deficiency (ICD-10 - E53.8) b12 1000 mcg im 12/24/2024 Seizure disorder (ICD-10 - G40.909) 11/25/2024 Urinary tract infection, site not specified (ICD-10 - N39.0) 11/16/2024 Bronchitis (ICD-10 - J40) cephalexin depomedrol/deca dron im 10/15/2024 B12 deficiency (ICD-10 - E53.8) vit b12 10/15/2024 Seizure disorder (ICD-10 - G40.909) continue meds neurology as planned 10/09/2024 Urinary retention (ICD-10 - R33.9) 09/15/2024 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 difficile diarrhea (ICD-10 - A04.72) 07/27/2024 Bronchitis (ICD-10 - J40) cefdinir rocephin 1 gram im depomedrol/deca dron im 05/14/2024 Urinary tract infection, site not specified (ICD-10 - N39.0) [facility] notified of results. 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8) b12 1000 mcg 04/30/2025 B12 deficiency (ICD-10 - E53.8) b12 1000 mcg im 03/18/2025 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) depomedrol/deca dron im 03/18/2025 Encounter for immunization (ICD-10 - Z23) 01/11/2025 Anxiety (ICD-10 - F41.9) continue meds 11/16/2024 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 01/11/2025 Other Questions asked and answered; discharged to home. Venipuncture: Performed by:Adrianna PEREZ Attempts: x1 Location: [facility] Needle gauge: 22g Patient tolerated well. 05/26/2024 Other Questions asked and answered; discharged [...] Questions asked and answered; discharged to home. 01/19/2025 Other Questions asked and answered; discharged to home. 02/16/2025 Other Questions asked and answered; discharged to home. 03/18/2025 Other Questions asked and answered; discharged to home. 04/30/2025 Other Questions asked and answered; discharged to home. Venipuncture: Performed by: Adrianna PEREZ Attempts: x1 Location:[facility] Needle gauge: 21g Patient tolerated well. Plan Of Treatment Pending Test Test Name Order Date CBC w\ Auto Diff 03527 04/30/2025 Comprehensive Metabolic Panel (CMP) 8005 3 04/30/2025 CDiff PCR Rfx C diff Toxin NAP/EPI 95975 , 10557 08/12/2024 Insurance Providers Payer Name Payer Address Payer Phone Subscriber Number Group Number Insured Name Patient Relationship to Insured Coverage Start Date Coverage End Date [place] [address] MAYI FAUSTO HEBERT [id number] LESLEE MELENDEZ Self - patient is the insured [place] Medicaid [address] [place] [address] [phone] [id number] LESLEE MELENDEZ Self - patient is the insured Medications Administered Medication Instructions Date of Administration Dosage Notes DEPO-Medrol 09/04/2021 40 mg NDC: [address]-70 Patient tolerated well, advised to wait 20 min at clinic DEPO-Medrol 10/02/2021 40 mg ndc 69762-506 3-1 pt tolerated well/instructed to wait 20 min DEPO-Medrol 10/24/2021 40 mg ndc 84097-385 3-1 pt tolerated well/ instructed to wait 20 min DEPO-Medrol 11/03/2021 40 mg NDC: [address]-30 Patient tolerated well, advised to wait 20 min at clinic DEPO-Medrol 12/08/2021 40 mg ndc 81200-419 3-1 pt tolerated well/instructed to wait 20 min DEPO-Medrol 01/05/2022 40 mg ndc 92790-683 3-1 pt tolerated well/instructed to wait 20 min DEPO-Medrol 02/09/2022 40 mg ndc 49052-443 2-1 pt tolerated well/instructed to wait 20 min DEPO-Medrol 03/19/2022 40 mg [facility] 83185-729 4-1 pt tolerated well/instructed to wait 20 min DEPO-Medrol 04/02/2022 40 mg ND: [address]-02 Patient tolerated well, advised to wait 20 min at clinic DEPO-Medrol 04/13/2022 40 mg [facility] 2471-6155 - pt tolerated well/instructed to wait 20 min DEPO-Medrol 05/11/2022 40 mg [facility] 7348-8629 -01 pt tolerated well/instructed to wait 20 min DEPO-Medrol 07/20/2022 [address] [facility]: [address]-53 Patient tolerated well, advised to wait 20 min at clinic DEPO-Medrol 09/04/2022 40 mg [facility] 04806-076 3-01 pt tolerated well/instructed to wait 20 min DEPO-Medrol 09/14/2022 40 mg [facility] 6617-2216 -01 pt tolerated well/instructed to wait 20 min DEPO-Medrol 10/19/2022 40 mg [facility] 39629-538 3-01 pt tolerated well/instructed to wait 20 min DEPO-Medrol 11/19/2022 40 mg [facility] 950069-87 73-01 pt tolerated well/instructed to wait 20 min DEPO-Medrol 12/21/2022 40 mg [facility] 10017-385 3-01 pt tolerated well/instructed to wait 20 min DEPO-Medrol 01/15/2023 40 mg [facility] 68975-471 3-01 pt tolerated well/instructed to wait 20 min DEPO-Medrol 02/18/2023 40 mg [facility] 71472-777 3-01 pt tolerated well/instructed to wait 20 min DEPO-Medrol 03/22/2023 40 mg [facility] 81724-288 3-01 pt tolerated well/instructed to wait 20 min DEPO-Medrol 04/12/2023 40 mg [facility] 62845-244 3-01 pt tolerated well/instructed to wait 20 min DEPO-Medrol 05/13/2023 40 mg [facility] 21839-085 3-01 pt tolerated well/instructed to wait 20 min DEPO-Medrol 06/24/2023 40 mg [facility] 44585-106 3-01 pt tolerated well/instructed to wait 20 min DEPO-Medrol 07/12/2023 40 mg ndc 27554-720 3-01 pt tolerated well/instructed to wait 20 min DEPO-Medrol 08/19/2023 [place] [address]-086 3-01 pt tolerated well/instructed to wait 20 min DEPO-Medrol 09/19/2023 40 mg ndc 15152-049 3-01 pt tolerated well/instructed to wait 20 min DEPO-Medrol 10/24/2023 [place] [address]-624 3-01 pt tolerated well/instructed to wait 20 min DEPO-Medrol 11/18/2023 [place] [address]-146 3-01 pt tolerated well/instructed to wait 20 min DEPO-Medrol 12/10/2023 40 mg [facility] 19563-493 3-01 pt tolerated well/instructed to wait 20 min DEPO-Medrol 01/07/2024 40 mg [facility] 38964-817 3-01 pt tolerated well/instructed to wait 20 min DEPO-Medrol 01/20/2024 40 mg [facility] 12516-275 3-01 pt tolerated well/instructed to wait 20 min DEPO-Medrol 02/10/2024 40 mg one injection site/[facility] [address]-93 pt tolerated well/instructed to wait 20 min DEPO-Medrol 03/12/2024 40 mg [facility] 79888-799 3-01 pt tolerated well/instructed to wait 20 min DEPO-Medrol 04/20/2024 [place] [address]-901 3-01 pt tolerated well/instructed to wait 20 min DEPO-Medrol 05/26/2024 [place] [address]-730 3-10 pt tolerated well/instructed to wait 20 min DEPO-Medrol 06/23/2024 40 mg ndc 14026-220 3-10 pt tolerated well/instructed to wait 20 min DEPO-Medrol 07/20/20[place] [address]-337 3-01 pt tolerated well/instructed to wait 20 min DEPO-Medrol 07/27/2024 [place] [address]-443 3-01 pt tolerated well/instructed to wait 20 min DEPO-Medrol 08/20/2024 40 mg [facility] 38813-705 3-01 pt tolerated well/instructed to wait 20 min DEPO-Medrol 09/15/2024 40 mg [facility] 40071-719 3-01 pt tolerated well/instructed to wait 20 min DEPO-Medrol 10/15/2024 40 mg [facility] 99353-568 3- pt tolerated well/instructed to wait 20 min DEPO-Medrol 11/16/2024 40 mg [facility] 39202-192 3- pt tolerated well/instructed to wait 20 min DEPO-Medrol 12/24/2024 40 mg [facility] 20497-068 3-01 pt tolerated well/instructed to wait 20 min DEPO-Medrol 01/19/2025 40 mg [facility] 39559-237 3- pt tolerated well/instructed to wait 20 min DEPO-Medrol 02/16/2025 40 mg [facility] 44007-742 3- pt tolerated well/instructed to wait 20 min DEPO-Medrol 03/18/2025 40 mg [facility] 75343-239 3- pt tolerated well/instructed to wait 20 min DEPO-Medrol 04/30/2025 40 mg [facility] 54889-574 3-01 pt tolerated well/instructed to wait 20 min dexAMETHasone 09/04/2021 1 mL NDC: 47532-959-62 Patient tolerated well, advised to stay at clinic 20 min dexAMETHasone 10/02/2021 [place] [address]-7 39-30 pt tolerated well/instructed to wait 20 min dexAMETHasone 10/24/2021 4 mg 77008-730-2 0 pt tolerated well/instructed to wait 20 min dexAMETHasone 11/03/2021 4 mg NDC: 28420-613-38 Patient tolerated well, advised to wait 20 min at clinic dexAMETHasone 12/08/2021 4 mg ndc 63850-6 39-30 pt tolerated well/instructed to wait 20 min dexAMETHasone 01/05/2022 4 mg ndc 53059-5 39-30 pt tolerated well/instructed to wait 20 min dexAMETHasone 02/09/2022 4 mg ndc 44615-4 39-30 pt tolerated well/instructed to wait 20 min dexAMETHasone 03/19/2022 4 mg ndc 31192-4 39-30 pt tolerated well/instructed to wait 20 min dexAMETHasone 04/02/2022 4 mg NDC: 01884-794-00 Patient tolerated well, advised to wait 20 in at clinic dexAMETHasone 04/13/2022 4 mg [facility] 43603-3 39-30 pt tolerated well/instructed to wait 20 min dexAMETHasone 05/11/2022 4 mg [facility] 0009-30 73-01 pt tolerated well/instructed to wait 20 min dexAMETHasone 07/20/2022 4 mg ND: [address]-97 Patient tolerated well, advised to wait 20 min at clinic dexAMETHasone 08/13/2022 [place] [address]-0 423-00 pt tolerated well/instructed to wait 20 min dexAMETHasone 09/04/2022 [place] [address]-1 423-00 pt tolerated well/instructed to wait 20 min dexAMETHasone 09/14/2022 [place] [address]-1 423-00 pt tolerated well/instructed to wait 20 min dexAMETHasone 10/19/2022 [place] [address]-6 423-00 pt tolerated well/instructed to wait 20 min dexAMETHasone 11/19/2022 [place] [address]-2 423-00 pt tolerated well/instructed to wait 20 min dexAMETHasone 12/21/2022 [place] [address]-6 423-00 pt tolerated well/instructed to wait 20 min dexAMETHasone 01/15/2023 [place] [address]-1 419-00 pt tolerated well/instructed to wait 20 min dexAMETHasone 02/18/2023 [place] [address]-7 423-00 pt tolerated well/instructed to wait 20 min dexAMETHasone 03/22/2023 [place] [address]-4 423-00 pt tolerated well/instructed to wait 20 min dexAMETHasone 04/12/2023 4 mg [facility] 25268-5 423-00 pt tolerated well/instructed to wait 20 min dexAMETHasone 05/13/2023 4 mg ejk57551-92 23-00 pt tolerated well/instructed to wait 20 min dexAMETHasone 06/24/2023 [place] [address]-9 423-00 pt tolerated well/instructed to wait 20 min dexAMETHasone 07/12/2023 [place] [address]-4 423-00 pt tolerated well/instructed to wait 20 min dexAMETHasone 08/19/2023 [place] [address]-7 423-00 pt tolerated well/instructed to wait 20 min dexAMETHasone 09/19/2023 4 mg [facility] 15824-2 423-00 pt tolerated well/instructed to wait 20 min dexAMETHasone 10/24/2023 [place] [address]-9 423-00 pt tolerated well/instructed to wait 20 min dexAMETHasone 11/18/2023 4 mg ndc 66225-0 423-00 pt tolerated well/instructed to wait 20 min dexAMETHasone 12/10/2023 4 mg ndc 29982-6 423-00 pt tolerated well/instructed to wait 20 min dexAMETHasone 01/07/2024 4 mg ndc 29674-2 423-00 pt tolerated well/instructed to wait 20 min dexAMETHasone 01/20/2024 4 mg ndc 48091-8 423-00 pt tolerated well/instructed to wait 20 min dexAMETHasone 02/10/2024 4 mg one injecti [place] site/[place] [address]-60 pt tolerated well/instructed to wait 20 min dexAMETHasone 03/12/2024 [place] [address]-9 423-00 pt tolerated well/instructed to wait 20 min dexAMETHasone 04/20/2024 [place] [address]-2 423-00 pt tolerated well/instructed to wait 20 min dexAMETHasone 05/26/2024 [place] [address]-0 423-00 pt tolerated well/instructed to wait 20 min dexAMETHasone 06/23/2024 [place] [address]-9 419-00 pt tolerated well/instructed to wait 20 min dexAMETHasone 07/20/2024 [place] [address]-2 423-00 pt tolerated well/instructed to wait 20 min dexAMETHasone 07/27/2024 [place] [address]-1 423-00 pt tolerated well/instructed to wait 20 min dexAMETHasone 08/20/2024 [place] [address]-8 423-00 pt tolerated well/instructed to wait 20 min dexAMETHasone 09/15/2024 [place] [address]-6 423-00 pt tolerated well/instructed to wait 20 min dexAMETHasone 10/15/2024 [place] [address]-5 423-00 pt tolerated well/instructed to wait 20 min dexAMETHasone 11/16/2024 [place] [address]-2 423-00 pt tolerated well/instructed to wait 20 min dexAMETHasone 12/24/2024 [place] [address]-5 165-02 pt tolerated well/instructed to wait 20 min dexAMETHasone 01/19/2025 [place] [address]-6 423-00 pt tolerated well/instructed to wait 20 min dexAMETHasone 02/16/2025 4 mg ndc 16194-2 423-00 pt tolerated well/instructed to wait 20 min dexAMETHasone 03/18/2025 4 mg ndc 85713-7 423-00 pt tolerated well/instructed to wait 20 min dexAMETHasone 04/30/2025 4 mg ndc 09130-4 423-00 pt tolerated well/instructed to wait 20 min Rocephin 04/02/2022 250 mg ND: 2286-9670-26 Patient tolerated well, advised to wait 20 in at clinic Rocephin 03/12/2024 1 g ndc [address] -11 pt tolerated well/instructed to wait 20 min Rocephin 07/20/2024 1 [place] [address] -11 pt tolerated well/instructed to wait 20 min Rocephin 07/27/2024 1 g [facility] [address] -11 pt tolerated well/instructed pt to wait [...] wait 20 min Cyanocobalamin 12/24/2024 1000 mg [facility] 78984- 0005-01 pt tolerated well/instructed to wait 20 [...]
--- OUTSIDE RECORDS SUMMARY | 2025-05-02 09:18 | XMS_ITS | Encounter Summary ---
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 [facility] [address] [place] [address] PCP - General 06/23/09 documented as of this encounter
--- OUTSIDE RECORDS SUMMARY | 2025-05-02 09:18 | XMS_ITS | Encounter Summary ---
Author Organization [facility] Address [address] [place] [address] Care Team Providers Care Estate Agent Name Role Phone Marilyn Trivedi APN Primary Care Provider [phone] Encounter Details Date Type Department Care Team (Latest Contact Info) Description 06/18/2003 Outpatient Historical [facility] [address] [facility], [address] [place] [address] [place] [address] [place] [address] PSYCHO EPI INTRACTABLE (CMS/HCC) (Primary Dx) Social History Tobacco Use Types Packs/Day Years Used Date Smoking Tobacco: Never Assessed Comments Unknown Sex and Gender Information Value Date Recorded Sex Assigned at Not on file 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 [facility] [address] [place] [address] PCP - General 06/23/09 documented as of this encounter
--- OUTSIDE RECORDS SUMMARY | 2025-05-02 09:18 | XMS_ITS | Encounter Summary ---
Author Organization [facility] Address [address] [place] [address] Care Team Providers Care Wind Turbine Service Technician Name Role Phone Marilyn Trivedi APN Primary Care Provider [phone] Encounter Details Date Type Department Care Team (Latest Contact Info) Description 05/25/2005 Outpatient Historical [facility] [address] [facility], [address] [place] [address] Jorge Suero MD NO ADDRESS ON FILE GEN CONVUL EPI INTRACTABLE (CMS/HCC) (Primary Dx) Social History Tobacco Use Types Packs/Day Years Used Date Smoking Tobacco: Never Assessed Comments Unknown Sex and Gender Information Value Date Recorded Sex Assigned at Not on file 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 [address] PCP - General 06/23/09 documented as of this encounter
--- OUTSIDE RECORDS SUMMARY | 2025-05-02 09:18 | XMS_ITS | Encounter Summary ---
Author Organization [facility] Address [address] [facility] [place] [id number] Care Team Providers Care Basket Weaver Name Role Phone Marilyn Trivedi APN Primary Care Provider [phone] Encounter Details Date Type Department Care Team (Latest Contact Info) Description 02/19/2003 Outpatient Historical HIS [facility] Gordo Glaser MD NO ADDRESS ON FILE PSYCHO EPI INTRACTABLE (CMS/HCC) (Primary Dx) Social History Tobacco Use Types Packs/Day Years Used Date Smoking Tobacco: Never Assessed Comments Unknown Sex and Gender Information Value Date Recorded Sex Assigned at Not on file 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
[2025-05-02 09:47] VITALS: BP 182/148; PULSE 89; RESP 15; TEMP 36.9; O2SAT 95
[2025-05-02 10:56] VITALS: BP 158/95; PULSE 78; RESP 16; O2SAT 96
[2025-05-02 12:54] VITALS: BP 150/57; PULSE 90; RESP 15; O2SAT 96
[2025-05-02] MEDS: HYDROcodone-acetaminophen 10-325 mg Tablet 1 TAB PO (13:28)
[2025-05-02 13:57] VITALS: BP 160/116; PULSE 78; RESP 14; TEMP 36.8; O2SAT 96
--- NOTE | 2025-05-03 11:35 | PC.SOCIAL ---
Referral Sandra from [facility] calls and reports that family would prefer referral for ENT to be sent to Dr. Caraballo. She reports it was sent to [place] and they have appointment arranged, but not sure if patient can tolerate the transport to [place]. New Referral to Dr. Leal office @ this time.
== END 2025-05-02 14:00 | disposition home or self-care (01) ==
PROVIDERS: Emergency Provider Emergency Medicine; PCP Nurse Practitioner Family
DX: S02.32XA Fracture of orbital floor, left side, initial encounter for closed fracture (principal); S02.2XXA Fracture of nasal bones, initial encounter for closed fracture; W19.XXXA Unspecified fall, initial encounter; Z87.891 Personal history of nicotine dependence; J44.9 Chronic obstructive pulmonary disease, unspecified; Z87.820 Personal history of traumatic brain injury
CPT/HCPCS: 70450; 70486; 72125; 99284; J9999